=== PATIENT | male | born 1940 | race Caucasian/White ===

== ENCOUNTER 2017-09-24 23:07 | Inpatient (IN) | payer MEDICARE, OTHER ==
[2017-09-24 23:25] VITALS: BMI 23.3
--- NOTE | 2017-09-25 00:07 | ED PDOC ---
Arrival/HPI - General Historian: Patient - History of Present Illness Time/Duration: > week Symptom Course: Intermittent Activities at Onset: Light Context: Home <Niki Chaumaria esther - Last Filed: 09/25/17 01:27> <Mynor Rivers DO - Last Filed: 09/25/17 06:21> - General Chief Complaint: Cough, Cold, Congestion Time Seen by Provider: 09/24/17 23:40 - History of Present Illness Narrative History of Present Illness (Text): 09/25/17 00:04 This is a 76 year old male with no PMH presenting to the ER for two weeks of productive cough with white sputum and SOB. SOB is worse when laying down and better when sitting up. Lozenges have helped with the cough. He denies CP, fevers, headaches, abdominal pain, diarrhea, vomiting, melena, recent sickness and urinary complaints. He currently takes no medication. No PMD (Rickey Chau) Past Medical History - Provider Review Nursing Documentation Reviewed: Yes - Tetanus Immunization Tetanus Immunization: Unknown - Past Medical History Past Medical History: No Previous - Psychiatric Hx Depression: No Hx Emotional Abuse: No Hx Physical Abuse: No Hx Substance Use: No - Past Surgical History Past Surgical History: No Previous - Suicidal Assessment Feels Threatened In Home Enviroment: No <MirnalinetteNikialice - Last Filed: 09/25/17 01:27> Family/Social History - Physician Review Nursing Documentation Reviewed: Yes Family/Social History: Unknown Family HX Smoking Status: Former Smoker Hx Alcohol Use: No Hx Substance Use: No <Rickey Chau - Last Filed: 09/25/17 01:27> Allergies/Home Meds <Rickey Chau - Last Filed: 09/25/17 01:27> <Mynor Rivers DO - Last Filed: 09/25/17 06:21> Allergies/Adverse Reactions: Allergies No Known Allergies Allergy (Verified 08/03/13 05:23) Home Medications: Home Meds Medication Instructions Recorded Confirmed No Known Home Med [No Known Home 08/03/13 09/24/17 Med] Review of Systems - Physician Review All systems were reviewed & negative as marked: Yes - Review of Systems Constitutional: Normal. absent: Fevers Eyes: Normal ENT: Normal Respiratory: SOB, Cough, Sputum Cardiovascular: Normal. absent: Chest Pain Gastrointestinal: Normal. absent: Abdominal Pain, Constipation, Diarrhea, Nausea, Vomiting, Hematochezia, Hematemesis Genitourinary Male: Normal. absent: Dysuria Musculoskeletal: Normal Skin: Normal Neurological: Normal. absent: Headache Psychiatric: Normal <Rickey Chau - Last Filed: 09/25/17 01:27> Physical Exam Vital Signs Reviewed: Yes Temperature: Afebrile Blood Pressure: Normal Pulse: Regular Respiratory Rate: Normal Appearance: Positive for: Well-Appearing, Non-Toxic, Comfortable Pain Distress: None Mental Status: Positive for: Alert and Oriented X 3 - Systems Exam Head: Present: Atraumatic, Normocephalic Pupils: Present: PERRL Extroacular Muscles: Present: EOMI Conjunctiva: Present: Normal Mouth: Present: Moist Mucous Membranes Neck: Present: Normal Range of Motion Respiratory/Chest: Present: Clear to Auscultation, Good Air Exchange, Other ( rales present in the B/L lower bases). No: Respiratory Distress, Accessory Muscle Use Cardiovascular: Present: Regular Rate and Rhythm, Normal S1, S2. No: Murmurs Abdomen: Present: Normal Bowel Sounds. No: Tenderness, Distention, Peritoneal Signs Back: Present: Normal Inspection Upper Extremity: Present: Normal Inspection. No: Cyanosis, Edema Lower Extremity: Present: Normal Inspection. No: Edema Neurological: Present: Speech Normal, Motor Func Grossly Intact, Normal Sensory Function Skin: Present: Warm, Dry, Normal Color. No: Rashes Psychiatric: Present: Alert, Oriented x 3, Normal Insight, Normal Concentration <Rickey Chau - Last Filed: 09/25/17 01:27> Vital Signs Temp Pulse Resp BP Pulse Ox 09/25/17 03:12 102/60 09/25/17 02:20 71 20 117/69 100 09/24/17 23:23 98.0 F 81 20 132/64 97 Medical Decision Making <Rickey Chau - Last Filed: 09/25/17 01:27> <Mynor Rivers DO - Last Filed: 09/25/17 06:21> ED Course and Treatment: 09/25/17 00:08 Impression: This is a 76 year old male with no PMH presenting to the ER for two weeks of productive with white sputum and SOB. Differential not limited to: URI vs CHF vs GERD Plan: -blood work -EKG -Cxray -d-dimer -BNP -blood culture Progress: 09/25/17 00:20 Patient resting comfortably, no acute distress and vitals are stable EKG: rate of 80bpm, NSR 09/25/17 00:25 Chest xray - suspicious for right lower lobe pneumonia (Rickey Chau) Patient Seen With Resident: In agreement with resident note which contains more details about the patient. Patient was seen and evaluated with resident. Came up with plan and treatment together. Case discussed with Dr. Avel davis, who accepts patient to be admitted to medical surgery. (Mynor Rivers DO) - Lab Interpretations Lab Results: 09/24/17 23:55 09/24/17 23:55 Lab Results 09/24/17 23:55: D-Dimer, Quantitative 206 09/24/17 23:55: Sodium 137, Potassium 4.2, Chloride 100, Carbon Dioxide 29, Anion Gap 12, BUN 13, Creatinine 1.0, Est GFR ( Amer) > 60, Est GFR (Non- Af Amer) > 60, Random Glucose 109, Calcium 8.9, Magnesium 2.3 H, Total Bilirubin 0.4, AST 30, ALT 30, Alkaline Phosphatase 132 H, Lactate Dehydrogenase 574, Total Creatine Kinase 48, Troponin I < 0.01, NT-Pro-B Natriuret Pep 521 H, Total Protein 6.9, Albumin 3.3, Globulin 3.6, Albumin/ Globulin Ratio 0.9 L 09/24/17 23:55: WBC 9.6, RBC 4.62, Hgb 13.6 L, Hct 39.5 L, MCV 85.5, MCH 29.4, MCHC 34.4, RDW 13.2, Plt Count 289, MPV 10.1, Gran % 64.5, Lymph % (Auto) 23.2, [place] % (Auto) 10.0 H, Eos % (Auto) 2.0, Baso % (Auto) 0.3, Gran # 6.20, Lymph # (Auto) 2.2, [place] # (Auto) 1.0 H, Eos # (Auto) 0.2, Baso # (Auto) 0.03 09/24/17 00:50: Urine Color Yellow, Urine Appearance Clear, Urine pH 6.5, Ur Specific [place] 1.010, Urine Protein Negative, Urine Glucose (UA) Negative, Urine Ketones Negative, Urine Blood Trace-intact H, Urine Nitrate Negative, Urine Bilirubin Negative, Urine Urobilinogen 0.2, Ur Leukocyte Esterase Negative , Urine RBC 1 - 3, Urine WBC 0 - 2, Ur Epithelial Cells 0 - 2 - RAD Interpretation Radiology Orders: 09/24/17 23:41 CHEST PORTABLE [RAD] Stat - Medication Orders Current Medication Orders: Albuterol/Ipratropium (Duoneb 3 Mg/0.5 Mg (3 Ml) Ud) 3 ml IH Q4H PRN PRN Reason: Shortness of Breath Last Admin: 09/25/17 02:14 Dose: 3 ml Enoxaparin Sodium (Lovenox) 40 mg SC DAILY FERNANDO PRN Reason: Protocol Ceftriaxone Sodium (Rocephin 1 Gram Ivpb) 1 gm in 100 mls @ 100 mls/hr IVPB DAILY FERNANDO PRN Reason: Protocol Azithromycin (Zithromax 500mg In Ns) 500 mg in 250 mls @ 167 mls/hr IVPB DAILY FERNANDO PRN Reason: Protocol Pantoprazole Sodium (Protonix Ec Tab) 40 mg PO 0600 FERNANDO Last Admin: 09/25/17 05:53 Dose: Not Given Non-Admin Reason: Patient Refused Discontinued Medications Furosemide (Lasix) 40 mg IVP STAT STA Stop: 09/25/17 02:26 Last Admin: 09/25/17 03:12 Dose: 40 mg MAR Blood Pressure Document 09/25/17 03:12 CNR (Rec: 09/25/17 03:14 CNR [id number]) Blood Pressure Blood Pressure (100/60-150/90) 102/60 IVP Administration Document 09/25/17 03:12 CNR (Rec: 09/25/17 03:14 CNR [id number]) Charges for Administration # of IVP Administrations 1 Ceftriaxone Sodium (Rocephin 1 Gram Ivpb) 1 gm in 100 mls @ 100 mls/hr IVPB STAT STA PRN Reason: Protocol Stop: 09/25/17 02:07 Last Admin: 09/25/17 01:28 Dose: 100 mls/hr eMAR Start Stop Document 09/25/17 01:28 CNR (Rec: 09/25/17 01:29 CNR [id number]) Intravenous Solution Start Date 09/25/17 Start Time 01:28 End Date 09/25/17 End time 02:28 Total Infusion Time 60 Azithromycin (Zithromax 500mg In Ns) 500 mg in 250 mls @ 167 mls/hr IVPB STAT STA PRN Reason: Protocol Stop: 09/25/17 02:38 Last Admin: 09/25/17 03:12 Dose: 167 mls/hr eMAR Start Stop Document 09/25/17 03:12 CNR (Rec: 09/25/17 03:12 CNR [id number]) Intravenous Solution Start Date 09/25/17 Start Time 03:12 - PA / [employer] HELPER / Resident Statement MARIPOSA has reviewed & agrees with the documentation as recorded. MARIPOSA has examined the patient and agrees with the treatment plan. <Rickey Chau - Last Filed: 09/25/17 01:27> Disposition/Present on Arrival - Present on Arrival History of DVT/PE: No History of Uncontrolled Diabetes: No Urinary Catheter: No History of Decub. Ulcer: No History Surgical Site Infection Following: None <Rickey Chau - Last Filed: 09/25/17 01:27> - Present on Arrival Any Indicators Present on Arrival: No - Disposition Have Diagnosis and Disposition been Completed?: Yes Disposition Time: 00:50 <Mynor Rivers DO - Last Filed: 09/25/17 06:21> - Disposition Diagnosis: Pneumonia Disposition: HOSPITALIZED Condition: STABLE
[2017-09-25 00:18] LABS: BASO # 0.03 K/mm3 (0.0-2.0); BASO % 0.3 % (0.0-3.0); EOS # 0.2 (0.0-0.7); GRAN # 6.2 (1.4-6.5); GRAN % 64.5 % (50.0-68.0); HEMOGLOBIN 13.6 g/dL (14.0-18.0); LYMPH # 2.2 (1.2-3.4); LYMPH % 23.2 % (22.0-35.0); MEAN CELL VOLUME 85.5 fl (80.0-105.0); MEAN CORPUSCULAR HEMOGLOBIN 29.4 pg (25.0-35.0); MEAN CORPUSCULAR HGB CONC 34.4 g/dl (31.0-37.0); MEAN PLATELET VOLUME 10.1 fl (7.0-11.0); RBC 4.62 10^6/uL (3.5-6.1); RED CELL DISTRIBUTION WIDTH 13.2 % (11.5-14.5); WHITE BLOOD COUNT 9.6 10^3/ul (4.5-11.0)
[2017-09-25 00:30] LABS: ALB/GLOB RATIO 0.9 (1.1-1.8); ALBUMIN 3.3 g/dL (3.0-4.8); ALT/SGPT 30 U/L (7-56); AST/SGOT 30 U/L (17-59); BLOOD UREA NITROGEN 13 mg/dL (7-21); CALCIUM 8.9 mg/dL (8.4-10.5); GFR AFRICAN-AMERICAN > 60; GFR NON-AFRICAN AMERICAN > 60
[2017-09-25 00:40] LABS: B-TYPE NATRIURETIC PEPTIDE 521 pg/mL (0-450); TROPONIN I < 0.01 ng/mL
[2017-09-25 01:00] LABS: PH,URINE 6.5 (4.7-8.0); URINE BILIRUBIN NEGATIVE (NEGATIVE); URINE BLOOD TRACE-INTACT (NEGATIVE); URINE GLUCOSE (UA) NEGATIVE (NEGATIVE); URINE LEUKOCYTE ESTERASE NEGATIVE Leu/uL (NEGATIVE); URINE PROTEIN NEGATIVE mg/dL (<30 mg/dL); URINE UROBILINOGEN 0.2 E.U./dL (<1 E.U./dL)
[2017-09-25 01:02] LABS: URINE APPEARANCE CLEAR (CLEAR); URINE COLOR YELLOW (YELLOW)
[2017-09-25] MEDS ORDERED: cefTRIAXone 1 gm 1 GM/100 ML BAG IVPB STA (01:08)
[2017-09-25] MEDS ORDERED: Azithromycin 500MG/NS 250ml 500 MG/250 ML BAG IVPB STA (01:09)
[2017-09-25 01:14] LABS: URINE EPITHELIAL CELLS 0 - 2 /hpf (0-5); URINE WBC 0 - 2 /hpf (0-6)
[2017-09-25] MEDS ORDERED: Albuterol-Ipratrop 3 mg / 0.5 (3 ml) UD ONE (02:13)
[2017-09-25] MEDS: Albuterol-Ipratrop 3 mg / 0.5 (3 ml) UD IH PRN (02:14)
[2017-09-25 03:00] LABS: ARTERIAL BLOOD GAS HCO3 23.2 mmol/L (21-28); ARTERIAL BLOOD GAS HEMOGLOBIN 14.2 g/dL (11.7-17.4); ARTERIAL BLOOD GAS O2 CAPACITY 19.3 mL/dl (16-24); ARTERIAL BLOOD GAS O2 CONTENT 18.3 ML/dl (15-23); ARTERIAL BLOOD GAS O2 SAT 94.9 % (95-98); ARTERIAL BLOOD GAS PCO2 35 mm/Hg (35-45); ARTERIAL BLOOD GAS PH 7.43 (7.35-7.45); ARTERIAL BLOOD GAS TCO2 24.3 mmol.L (22-28)
--- NOTE | 2017-09-25 04:33 | CP.PCM.HP ---
<JuniorScottie Lagos - Last Filed: 09/25/17 06:24> History of Present Illness - History of Present Illness History of Present Illness: Scottie Pacheco PGY-1, Internal Medicine Resident, History and Physical for Avel Velarde CC: "I have been coughing for 3 weeks" HPI: Pt is a 76 yo male with a past medical history of only GI ulcer in 2014 who presents to the ED for 3 weeks of productive cough with white/yellow sputum and SOB. He denies blood in his sputum. He states that he traveled to [place] for his son's wedding and [place] a [place] ago. He reports a recent 19lb wt loss, due to "food does not taste the same". Pt quit smoking about 5 years ago. Pt reports he has been using Tim's Vapor rub, but it has not helped very much. He states that he is SOB which is worse when he lays down and better when he sits up. He denies CP, fevers, headaches, abdominal pain, diarrhea, vomiting, melena, recent sickness and urinary complaints. He currently takes no medication. 12 point ROS obtained, pertinent positives and negatives added to HPI. PMH: GI ulcer 2014 PSH: denies FH: Mother: unsure of medical history. Father: smoker, from "heart attack" Social: Tobacco quit 5 years smoked 3 cigs/day for 5 years, alcohol- 1 beer/ week. Denies drugs. Home meds: none Allergies: NKDA Labs: CBC: WBC 9.6, Hgb: 13.6 CMP: BNP 521 UA: trace blood Imaging: CXR: consolidations suggestive of PNA Present on Admission - Present on Admission Any Indicators Present on Admission: No Review of Systems - Review of Systems Review of Systems: 12 point ROS obtained and added to HPI Past Patient History - Tetanus Immunizations Tetanus Immunization: Unknown - Past Social History Smoking Status: Former Smoker - PSYCHIATRIC Hx Depression: No Hx Emotional Abuse: No Hx Physical Abuse: No Hx Substance Use: No Meds Allergies/Adverse Reactions: Allergies Allergy/AdvReac Type Severity Reaction Status Date / Time No Known Allergies Allergy Verified 08/03/13 05:23 Physical Exam - Constitutional Appears: No Acute Distress - Head Exam Head Exam: ATRAUMATIC, NORMOCEPHALIC - Eye Exam Eye Exam: EOMI, PERRL - ENT Exam ENT Exam: Mucous Membranes Moist, Normal Exam - Neck Exam Neck exam: Positive for: Normal Inspection. Negative for: Tenderness - Respiratory Exam Respiratory Exam: Decreased Breath Sounds, Wheezes, NORMAL BREATHING PATTERN. absent: Chest Wall Tenderness, Stridor - Cardiovascular Exam Cardiovascular Exam: REGULAR RHYTHM, RRR, +S1, +S2. absent: Diastolic murmur, JVD, Systolic Murmur - GI/Abdominal Exam GI & Abdominal Exam: Normal Bowel Sounds, Soft. absent: Distended, Tenderness - Extremities Exam Extremities exam: Positive for: full ROM. Negative for: calf tenderness, joint swelling, pedal edema - Neurological Exam Neurological exam: Alert, CN II-XII Intact, Oriented x3 - Psychiatric Exam Psychiatric exam: Normal Affect, Normal Mood - Skin Skin Exam: Normal Color Results - Vital Signs Recent Vital Signs: Last Vital Signs Temp 98.9 F 09/24/17 23:23 Pulse 71 09/25/17 02:20 Resp 20 09/25/17 02:20 BP 102/60 09/25/17 03:12 Pulse Ox 100 09/25/17 02:20 - Labs Result Diagrams: 09/24/17 23:55 09/24/17 23:55 Labs: Laboratory Results - last 24 hr 09/25/17 02:48 pCO2 35 pO2 62.0 L HCO3 23.2 ABG pH 7.43 ABG Total CO2 24.3 ABG O2 Saturation 94.9 L ABG O2 Content 18.3 ABG Base Excess -0.6 ABG Hemoglobin 14.2 ABG Carboxyhemoglobin 1.9 H POC ABG HHb (Measured) 4.9 ABG Methemoglobin 1.3 ABG O2 Capacity 19.3 Hgb O2 Saturation 91.9 L FiO2 21.0 Assessment & Plan - Assessment and Plan (Free Text) Assessment: Pt is a 76 yo male with a past medical history of only GI ulcer in 2015 who presents to the ED for 3 weeks of productive cough with white/yellow sputum and SOB. Plan: Community Acquired Pneumonia -ordered Mycoplasma IgM, IgG -Ordered Legionella Urine antigen -Ordered Quantiferon -Ordered blood cultures -ordered sputum cultures -consulted IDDr Coker, appreciate recommendations -consulted Pulm, Dr Andrews, appreciate recommendations -ordered Procal -Duoneb q4h, PRN -Start Lasix 40mg IVP -Ceftriaxone 1g, IVPB Daily -Azithromycin 500mg, IVPB Daily -CXR: official read pending -keep NPO -UA: trace blood -Troponin NEGATIVE x1, continue to trend Elevated BNP -BNP 521 -F/u on ECHO, consult cardio if abnormal -ordered HA1C -Ordered Lipid panel -ordered TSH -Ordered Troponin GI ppx -start protonix 40mg PO daily DVT ppx -SCDs -lovenox 40mg SC daily Pt seen, examined, assessment and plan discussed extensively with Dr Velarde. Scottie Pacheco PGY-1 <Dilma Velarde - Last Filed: 09/29/17 06:06> Results - Vital Signs Recent Vital Signs: Last Vital Signs Temp 98.6 F 09/29/17 00:01 Pulse 89 09/29/17 02:00 Resp 16 09/29/17 00:01 BP 126/66 09/29/17 00:01 Pulse Ox 98 09/29/17 00:01 - Labs Result Diagrams: 09/27/17 06:00 09/27/17 06:00 Labs: Laboratory Results - last 24 hr 09/28/17 09/28/17 09/28/17 07:15 16:55 23:20 APTT 55.1 H 58.8 H Troponin I < 0.01
[2017-09-25] MEDS: Pantoprazole 40 mg EC Tab PO SCH (05:53)
[2017-09-25] MEDS ORDERED: Magnesium Sulfate 1 gm in D5W 1 GM/100 ML BAG IVPB ONE (06:49)
[2017-09-25 06:50] LABS: HEMOGLOBIN 14.3 g/dL (14.0-18.0); MEAN CORPUSCULAR HEMOGLOBIN 29.4 pg (25.0-35.0); MEAN CORPUSCULAR HGB CONC 34.2 g/dl (31.0-37.0); MEAN PLATELET VOLUME 9.7 fl (7.0-11.0); RBC 4.86 10^6/uL (3.5-6.1); RED CELL DISTRIBUTION WIDTH 13.3 % (11.5-14.5); WHITE BLOOD COUNT 8.9 10^3/ul (4.5-11.0)
[2017-09-25 07:03] LABS: ALBUMIN 3.6 g/dL (3.0-4.8); ALT/SGPT 36 U/L (7-56); AST/SGOT 29 U/L (17-59); BLOOD UREA NITROGEN 13 mg/dL (7-21); GFR AFRICAN-AMERICAN > 60; GFR NON-AFRICAN AMERICAN > 60; HDL CHOLESTEROL 40 mg/dL (29-60)
[2017-09-25 07:13] LABS: TROPONIN I < 0.01 ng/mL
[2017-09-25 07:14] LABS: LDL CHOLESTEROL 58 mg/dL (0-129)
[2017-09-25] MEDS ORDERED: Iohexol 350 MG/100 ML VIAL ONE (08:04)
--- NOTE | 2017-09-25 09:13 | CT ---
Date of service: 09/25/2017 PROCEDURE: CT Chest with and without contrast HISTORY: Cough, suspect PNA, hx smoking recent [place] visit COMPARISON: None. TECHNIQUE: Contiguous axial images were obtained through the chest with intravenous contrast enhancement. Sagittal and coronal reconstructions were performed. IV contrast: 100 cc of Omni 350 Radiation dose (DLP): 636 mGy-cm. This CT exam was performed using one or more of the following dose reduction techniques: Automated exposure control, adjustment of the mA and/or kV according to patient size, and/or use of iterative reconstruction technique. FINDINGS: LUNGS: There is dense consolidation of the right lower lobe consistent with pneumonia. MEDIASTINUM: Unremarkable thoracic aorta. No aneurysm or dissection. Normal sized heart. Main pulmonary artery unremarkable. No vascular congestion. There is extensive mediastinal adenopathy. Subcarinal adenopathy measures 3.7 cm in diameter. There is a pretracheal node measuring 3.8 cm. There are multiple anterior mediastinal nodes and right hilar nodes. There is a 4.5 cm mass or adenopathy inferior to the right hilum. This degree of adenopathy raises the suspicion of underlying pulmonary malignancy. PLEURA: Small right pleural effusion BONES: There is a lytic lesion in the posterior aspect of the T7 vertebral body. Sclerotic lesions are seen a multiple levels. Findings are suspicious for metastatic disease UPPER ABDOMEN: Grossly unremarkable. OTHER FINDINGS: None. IMPRESSION: Extensive mediastinal and hilar adenopathy suspicious for underlying pulmonary malignancy. Lytic lesion at T7 consistent with metastatic disease. Scattered sclerotic lesions. Extensive right lower lobe pneumonia
[2017-09-25] MEDS: Azithromycin 500MG/NS 250ml 500 MG/250 ML BAG IVPB SCH (10:22)
[2017-09-25] MEDS: Enoxaparin 40 mg Syringe SC SCH (10:22)
[2017-09-25] MEDS: cefTRIAXone 1 gm 1 GM/100 ML BAG IVPB SCH (10:23)
--- NOTE | 2017-09-25 11:13 | RAD ---
Date of service: 09/25/2017 HISTORY: r/o infiltrate COMPARISON: No prior. FINDINGS: LUNGS: There is an extensive alveolar infiltrate in the right lower lobe consistent with pneumonia PLEURA: No significant pleural effusion identified, no pneumothorax apparent. CARDIOVASCULAR: Normal. OSSEOUS STRUCTURES: No significant abnormalities. VISUALIZED UPPER ABDOMEN: Normal. OTHER FINDINGS: None. IMPRESSION: There is an extensive alveolar infiltrate in the right lower lobe consistent with pneumonia
--- NOTE | 2017-09-25 16:26 | CARD ---
APPROVED REPORT Date of service: 09/24/2017 EKG Measurement Heart [id number] IL [id number] <Conclusion> Normal sinus rhythm Possible Left atrial enlargement Borderline ECG
--- NOTE | 2017-09-25 17:59 | CT ---
Date of service: 09/25/2017 PROCEDURE: CT Abdomen and Pelvis without intravenous contrast HISTORY: Lesions suspicious for cancer on CT chest, staging COMPARISON: None. TECHNIQUE: Contiguous images were obtained from the domes of the diaphragms to the upper thighs without the administration of intravenous contrast. Oral contrast was not administered. Radiation dose: Total exam DLP = 342.3 mGy-cm. This CT exam was performed using one or more of the following dose reduction techniques: Automated exposure control, adjustment of the mA and/or kV according to patient size, and/or use of iterative reconstruction technique. FINDINGS: LOWER THORAX: Extensive right lower lobe consolidation. LIVER: 2.1 cm low-density lesion in the anterolateral liver (series 3, image 29). No gross lesion or ductal dilatation. GALLBLADDER AND BILE DUCTS: Unremarkable. PANCREAS: Unremarkable. No gross lesion or ductal dilatation. SPLEEN: Unremarkable. ADRENALS: Unremarkable. No mass. KIDNEYS AND URETERS: 2.9 x 2.7 cm right interpolar cyst. 3.9 x 3.8 cm left lower pole cyst. . No hydronephrosis. No solid mass. VASCULATURE: Unremarkable. No aortic aneurysm. BOWEL: Colonic diverticulosis. Prominent amount of retained colonic stool. No obstruction. No gross mural thickening. APPENDIX: No findings to suggest acute appendicitis. PERITONEUM: Left fat and nonobstructive bowel containing inguinal hernia. No free fluid. No free air. LYMPH NODES: Unremarkable. No enlarged lymph nodes. BLADDER: Unremarkable. REPRODUCTIVE: Prostatomegaly. BONES: Scattered osseous sclerotic lesions including in multiple vertebral bodies, posterior elements and ribs. Age-indeterminate fracture of L4 superior endplate which may be acute and/or pathologic. OTHER FINDINGS: None. 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 Age-indeterminate fracture of the L4 superior endplate which may be acute and/or pathologic. Contrast-enhanced MRI of the lumbar spine can be obtained for further evaluation and characterization as clinically warranted. Low density lesion in the anterolateral liver for which metastasis is suspected. Nonobstructive bowel containing left inguinal hernia. Additional findings as above.
--- NOTE | 2017-09-25 19:05 | CP.PCM.CON ---
History of Present Illness - History of Present Illness History of Present Illness: Infectious Disease Consultation: September 25, 2017 76 yo male with presentation of SOB and cough productive of sputum. The patient has had symptoms for the past 3 weeks. He was recently in [place] for his son's wedding. Patient states that "food does not taste the same". He has lost [address] scan showing extensive right lower lobe pneumonia but what is more concerning is the extensive mediastinal and hilar adenopathy with lytic lesion at T7. The patient has been started on IV Rocephin and Azithromycin for antibiotic care. No WBC. Procalcitonin of 8.8 at this time. PMHx: GI Ulcer 2014 PSHx: none Allergies: NKDA Social Hx: No illicit drug use Tobacco - stopped 5 years ago EtOH - Social about 1 beer/week Active Medications Albuterol/Ipratropium (Duoneb 3 Mg/0.5 Mg (3 Ml) Ud) 3 ml IH Q4H PRN PRN Reason: Shortness of Breath Last Admin: 09/25/17 02:14 Dose: 3 ml Enoxaparin Sodium (Lovenox) 40 mg SC DAILY FERNANDO PRN Reason: Protocol Last Admin: 09/25/17 10:22 Dose: 40 mg Ceftriaxone Sodium (Rocephin 1 Gram Ivpb) 1 gm in 100 mls @ 100 mls/hr IVPB DAILY FERNANDO PRN Reason: Protocol Last Admin: 09/25/17 10:23 Dose: 100 mls/hr Azithromycin (Zithromax 500mg In Ns) 500 mg in 250 mls @ 167 mls/hr IVPB DAILY FERNANDO PRN Reason: Protocol Last Admin: 09/25/17 10:22 Dose: 167 mls/hr Pantoprazole Sodium (Protonix Ec Tab) 40 mg PO 0600 [facility] Last Admin: 09/25/17 05:53 Dose: Not Given Family Hx: none given ROS: No fevers, chills, nausea, vomiting, diarrhea, headaches, dizziness, chest pain , abdominal pain, melena, hematuria, hematemesis, hematochezia, depression, anxiety Past Patient History - Tetanus Immunizations Tetanus Immunization: Unknown - Past Social History Smoking Status: Former Smoker - CARDIAC Hx Cardiac Disorders: No - PULMONARY Hx Respiratory Disorders: No - NEUROLOGICAL Hx Neurological Disorder: No - HEENT Hx HEENT Problems: No - RENAL Hx Chronic Kidney Disease: No - ENDOCRINE/METABOLIC Hx Endocrine Disorders: No - HEMATOLOGICAL/ONCOLOGICAL Hx Blood Disorders: No - INTEGUMENTARY Hx Dermatological Problems: No - MUSCULOSKELETAL/RHEUMATOLOGICAL Hx Musculoskeletal Disorders: No Hx Falls: No - GASTROINTESTINAL Hx Gastrointestinal Disorders: No - GENITOURINARY/GYNECOLOGICAL Hx Genitourinary Disorders: No - PSYCHIATRIC Hx Depression: No Hx Emotional Abuse: No Hx Physical Abuse: No Hx Substance Use: No - SURGICAL HISTORY Hx Surgeries: No Hx Amputation: No Other/Comment: colonoscopy [address] johnson, no findings. Meds Allergies/Adverse Reactions: Allergies Allergy/AdvReac Type Severity Reaction Status Date / Time No Known Allergies Allergy Verified 08/03/13 05:23 - Medications Medications: Current Medications Albuterol/Ipratropium (Duoneb 3 Mg/0.5 Mg (3 Ml) Ud) 3 ml IH Q4H PRN PRN Reason: Shortness of Breath Last Admin: 09/25/17 02:14 Dose: 3 ml Enoxaparin Sodium (Lovenox) 40 mg SC DAILY FERNANDO PRN Reason: Protocol Last Admin: 09/25/17 10:22 Dose: 40 mg Ceftriaxone Sodium (Rocephin 1 Gram Ivpb) 1 gm in 100 mls @ 100 mls/hr IVPB DAILY FERNANDO PRN Reason: Protocol Last Admin: 09/25/17 10:23 Dose: 100 mls/hr Azithromycin (Zithromax 500mg In Ns) 500 mg in 250 mls @ 167 mls/hr IVPB DAILY FERNANDO PRN Reason: Protocol Last Admin: 09/25/17 10:22 Dose: 167 mls/hr Pantoprazole Sodium (Protonix Ec Tab) 40 mg PO 0600 [facility] Last Admin: 09/25/17 05:53 Dose: Not Given Physical Exam - Constitutional Appears: No Acute Distress, Chronically Ill - Head Exam Head Exam: ATRAUMATIC, NORMOCEPHALIC - Eye Exam Eye Exam: EOMI, PERRL Pupil Exam: NORMAL ACCOMODATION, PERRL - ENT Exam ENT Exam: Mucous Membranes Moist, Normal External Ear Exam, TM's Normal Bilaterally - Neck Exam Neck exam: Positive for: Full Rom, Tenderness - Respiratory Exam Respiratory Exam: Decreased Breath Sounds, Wheezes. absent: Rales, Rhonchi - Cardiovascular Exam Cardiovascular Exam: REGULAR RHYTHM, RRR, +S1, +S2 - GI/Abdominal Exam GI & Abdominal Exam: Normal Bowel Sounds, Soft. absent: Distended, Tenderness - Extremities Exam Extremities exam: Positive for: full ROM, normal inspection - Neurological Exam Neurological exam: Alert, CN II-XII Intact, Oriented x3 - Psychiatric Exam Psychiatric exam: Normal Affect, Normal Mood - Skin Skin Exam: Intact, Normal Color Results - Vital Signs Recent Vital Signs: Last Vital Signs Temp 98.3 F 09/25/17 14:00 Pulse 66 09/25/17 14:00 Resp 18 09/25/17 14:00 BP 102/60 09/25/17 14:00 Pulse Ox 98 09/25/17 14:00 - Labs Result Diagrams: 09/25/17 06:20 09/25/17 06:20 Labs: Laboratory Results - last 24 hr 09/25/17 09/25/17 09/25/17 02:48 03:30 06:20 WBC 8.9 RBC 4.86 Hgb 14.3 Hct 41.8 L MCV 86.0 MCH 29.4 MCHC 34.2 RDW 13.3 Plt Count 283 MPV 9.7 pCO2 35 pO2 62.0 L HCO3 23.2 ABG pH 7.43 ABG Total CO2 24.3 ABG O2 Saturation 94.9 L ABG O2 Content 18.3 ABG Base Excess -0.6 ABG Hemoglobin 14.2 ABG Carboxyhemoglobin 1.9 H POC ABG HHb (Measured) 4.9 ABG Methemoglobin 1.3 ABG O2 Capacity 19.3 Hgb O2 Saturation 91.9 L FiO2 21.0 Sodium Potassium Chloride Carbon Dioxide Anion Gap BUN Creatinine Est GFR ( Amer) Est GFR (Non-Af Amer) Random Glucose Hemoglobin A1c Calcium Phosphorus Magnesium Total Bilirubin AST ALT Alkaline Phosphatase Troponin I Total Protein Albumin Globulin Albumin/Globulin Ratio Triglycerides Cholesterol LDL Cholesterol Direct HDL Cholesterol Free T4 TSH 3rd Generation Ur L.pneumophila Ag Negative 09/25/17 09/25/17 09/25/17 06:20 06:20 06:20 WBC RBC Hgb Hct MCV MCH MCHC RDW Plt Count MPV pCO2 pO2 HCO3 ABG pH ABG Total CO2 ABG O2 Saturation ABG O2 Content ABG Base Excess ABG Hemoglobin ABG Carboxyhemoglobin POC ABG HHb (Measured) ABG Methemoglobin ABG O2 Capacity Hgb O2 Saturation FiO2 Sodium 138 Potassium 3.8 Chloride 100 Carbon Dioxide 29 Anion Gap 13 BUN 13 Creatinine 1.0 Est GFR ( Amer) > 60 Est GFR (Non-Af Amer) > 60 Random Glucose 134 H Hemoglobin A1c 6.5 Calcium 9.0 Phosphorus 3.5 Magnesium 2.2 Total Bilirubin 0.6 AST 29 ALT 36 Alkaline Phosphatase 135 H Troponin I < 0.01 Total Protein 7.3 Albumin 3.6 Globulin 3.7 Albumin/Globulin Ratio 1.0 L Triglycerides 69 Cholesterol 116 L LDL Cholesterol Direct 58 HDL Cholesterol 40 Free T4 TSH 3rd Generation 1.44 Ur L.pneumophila Ag 09/25/17 07:35 WBC RBC Hgb Hct MCV MCH MCHC RDW Plt Count MPV pCO2 pO2 HCO3 ABG pH ABG Total CO2 ABG O2 Saturation ABG O2 Content ABG Base Excess ABG Hemoglobin ABG Carboxyhemoglobin POC ABG HHb (Measured) ABG Methemoglobin ABG O2 Capacity Hgb O2 Saturation FiO2 Sodium Potassium Chloride Carbon Dioxide Anion Gap BUN Creatinine Est GFR ( Amer) Est GFR (Non-Af Amer) Random Glucose Hemoglobin A1c Calcium Phosphorus Magnesium Total Bilirubin AST ALT Alkaline Phosphatase Troponin I Total Protein Albumin Globulin Albumin/Globulin Ratio Triglycerides Cholesterol LDL Cholesterol Direct HDL Cholesterol Free T4 1.53 TSH 3rd Generation Ur L.pneumophila Ag Assessment & Plan - Assessment and Plan (Free Text) Assessment: 76 yo [place] male with large amount of weight loss (19 lbs) and multiple CT lung findings. The patient started on Ceftriaxone and Azithromycin. Must rule out malignancy. Check for Tuberculosis. Check PPD and Quantiferon. Consider surgery or IR evaluation for biopsy of suspicious areas. Supportive care. May need Heme/Onc evaluation as well. Check ESR and C-Reactive Protein. The most likely diagnosis given the current symptoms is malignancy. Thank you for allowing me to participate in the care of the patient, we will follow with you.
[2017-09-25] MEDS: guaiFENesin 100 mg/5 ml Syrup UD PO STA ×2 (20:17→20:51)
[2017-09-26] MEDS: Albuterol-Ipratrop 3 mg / 0.5 (3 ml) UD IH PRN (00:50)
[2017-09-26 02:24] LABS: HEMOGLOBIN 14.3 g/dL (14.0-18.0); MEAN CELL VOLUME 86.5 fl (80.0-105.0); MEAN CORPUSCULAR HEMOGLOBIN 29.8 pg (25.0-35.0); MEAN CORPUSCULAR HGB CONC 34.5 g/dl (31.0-37.0); MEAN PLATELET VOLUME 9.5 fl (7.0-11.0); RBC 4.8 10^6/uL (3.5-6.1); RED CELL DISTRIBUTION WIDTH 13.2 % (11.5-14.5)
[2017-09-26 02:26] LABS: WHITE BLOOD COUNT 10.7 10^3/ul (4.5-11.0)
[2017-09-26 02:33] LABS: ARTERIAL BLOOD GAS HCO3 23.5 mmol/L (21-28); ARTERIAL BLOOD GAS HEMOGLOBIN 13.9 g/dL (11.7-17.4); ARTERIAL BLOOD GAS O2 CAPACITY 19.1 mL/dl (16-24); ARTERIAL BLOOD GAS O2 CONTENT 18.9 ML/dl (15-23); ARTERIAL BLOOD GAS O2 SAT 99.1 % (95-98); ARTERIAL BLOOD GAS PCO2 33 mm/Hg (35-45); ARTERIAL BLOOD GAS PH 7.46 (7.35-7.45); ARTERIAL BLOOD GAS TCO2 24.5 mmol.L (22-28)
[2017-09-26] MEDS ORDERED: Digoxin 500 mcg/2ml (0.5 mg/2ml) Inj IVP ONE (02:33)
[2017-09-26 02:34] LABS: ALBUMIN 3.7 g/dL (3.0-4.8); ALT/SGPT 33 U/L (7-56); AST/SGOT 30 U/L (17-59); BLOOD UREA NITROGEN 12 mg/dL (7-21); CALCIUM 9.2 mg/dL (8.4-10.5); GFR AFRICAN-AMERICAN > 60; GFR NON-AFRICAN AMERICAN > 60
[2017-09-26 02:45] LABS: TROPONIN I < 0.01 ng/mL
--- NOTE | 2017-09-26 02:52 | CP.PCM.PN ---
<Scottie Pacheco - Last Filed: 09/26/17 03:28> Subjective - Date & Time of Evaluation Date of Evaluation: 09/26/17 Time of Evaluation: 01:40 - Subjective Subjective: Scottie Pacheco PGY-1, Internal Medicine Resident, Progress note for Dr Fink. Notified by pt nurse that pt's HR increased from 80's to 150's. Pt completely asymptomatic at that time, denies chest pain, states he is aware is heart is beating fast. Pt is on O2 3L and does not feel any worsening of his SOB. Pt had just finished a duoneb treatment. Pt was transferred to 2nd floor for tele. Pt given Cardizem 10mg bolus and BP dipped to 99/60. Decision made to give Digoxin instead of Cardizem drip. Pt is currently being treated of PNA. Chest CT performed yesterday which showed mediasteinal adenopathy and a lesion at T7 suspicious of metastatic disease. VS:118/65, HR 80 to 150, Irregular rhythm, RR20, 98.2F. Objective - Vital Signs/Intake and Output Vital Signs (last 24 hours): Temp Pulse Resp BP Pulse Ox 98 F 109 H 19 114/72 99 09/25/17 22:07 09/25/17 22:07 09/25/17 22:07 09/25/17 22:07 09/25/17 22:07 Intake and Output: 09/25/17 09/26/17 18:59 06:59 Intake Total 240 Balance 240 - Medications Medications: Current Medications Enoxaparin Sodium (Lovenox) 40 mg SC DAILY FERNANDO PRN Reason: Protocol Last Admin: 09/25/17 10:22 Dose: 40 mg Ceftriaxone Sodium (Rocephin 1 Gram Ivpb) 1 gm in 100 mls @ 100 mls/hr IVPB DAILY FERNANDO PRN Reason: Protocol Last Admin: 09/25/17 10:23 Dose: 100 mls/hr Azithromycin (Zithromax 500mg In Ns) 500 mg in 250 mls @ 167 mls/hr IVPB DAILY FERNANDO PRN Reason: Protocol Last Admin: 09/25/17 10:22 Dose: 167 mls/hr Levalbuterol HCl (Xopenex) 1.25 mg IH [id number] PRN PRN Reason: Shortness of Breath Pantoprazole Sodium (Protonix Ec Tab) 40 mg PO 0600 FERNANDO Last Admin: 09/25/17 05:53 Dose: Not Given - Labs Labs: 09/26/17 02:10 09/26/17 02:10 - Constitutional Appears: No Acute Distress - Head Exam Head Exam: ATRAUMATIC, NORMAL INSPECTION, NORMOCEPHALIC - Eye Exam Eye Exam: EOMI, PERRL - ENT Exam ENT Exam: Mucous Membranes Moist - Neck Exam Neck Exam: Normal Inspection - Respiratory Exam Respiratory Exam: Decreased Breath Sounds, NORMAL BREATHING PATTERN. absent: Accessory Muscle Use, Chest Wall Tenderness, Wheezes, Respiratory Distress, Stridor Additional comments: decreased breath sounds on left lower lung field. Crepitations half way up on the right side. - Cardiovascular Exam Cardiovascular Exam: Tachycardia, Irregular Rhythm, +S1, +S2 - GI/Abdominal Exam GI & Abdominal Exam: Soft, Normal Bowel Sounds. absent: Tenderness - Extremities Exam Extremities Exam: Full ROM, Normal Inspection. absent: Calf Tenderness, Pedal Edema - Back Exam Back Exam: absent: CVA tenderness (L), CVA tenderness (R) - Neurological Exam Neurological Exam: Alert, Awake, CN II-XII Intact, Oriented x3. absent: Altered - Psychiatric Exam Psychiatric exam: Normal Affect, Normal Mood. absent: Anxious, Depressed - Skin Skin Exam: Dry, Normal Color, Warm Assessment and Plan - Assessment and Plan (Free Text) Assessment: Assessment and plan: EKG done stat reveals A fib RVR(151), 1:51AM STAT troponin was ordered, will continue to trend Q6 x2. Pt transferred to second floor, [facility]. Duoneb has been discontinued at this time. Xopenex ordered instead. Ordered ABG stat, results are acceptable. CXR ordered stat, no significant changes when compared to earlier xray. CMP, BNP, Mg level ordered Cardio consult ordered, Dr Chirinos. Pt given Cardizem 10mg boulus IV for rate control after he was transferred to telemetry floor. His BP fell to 96/60, however the rate was still in the 150's. Pt given Digoxin 0.25 IV push x1 with a transient response, rate continues to be in the 140's to 150's. The BP is now noted to be 141/73, pt given Cardizem 5mg IVP, followed by drip at 5mg/hr. Since pt was feeling restless and complaining of the inability to relax, he was given Xanax 0.25mg PO. Since he continues to feel restless, we consulted ICU. Pt's called and notified of pt's transfer to TELE unit. Pt seen, examined, and assessment and plan extensively discussed with Dr Fink. Scottie Pacheco PGY-1 <Sammi Fink - Last Filed: 09/26/17 05:46> Objective - Vital Signs/Intake and Output Vital Signs (last 24 hours): Temp Pulse Resp BP Pulse Ox 98.2 F 157 H 20 141/73 99 09/26/17 01:25 09/26/17 03:42 09/26/17 01:25 09/26/17 03:42 09/26/17 01:25 Intake and Output: 09/25/17 09/26/17 18:59 06:59 Intake Total 240 Balance 240 - Medications Medications: Current Medications Enoxaparin Sodium (Lovenox) 40 mg SC DAILY FERNANDO PRN Reason: Protocol Last Admin: 09/25/17 10:22 Dose: 40 mg Ceftriaxone Sodium (Rocephin 1 Gram Ivpb) 1 gm in 100 mls @ 100 mls/hr IVPB DAILY FERNANDO PRN Reason: Protocol Last Admin: 09/25/17 10:23 Dose: 100 mls/hr Azithromycin (Zithromax 500mg In Ns) 500 mg in 250 mls @ 167 mls/hr IVPB DAILY FERNANDO PRN Reason: Protocol Last Admin: 09/25/17 10:22 Dose: 167 mls/hr diltiaZEM IVPB 100mg in NS (Cardizem 100mg In Ns) 100 mls @ 5 mls/hr IV .Q20H PRN; Protocol; 5 MG/HR PRN Reason: TITRATE PER MD ORDER Last Admin: 09/26/17 03:45 Dose: 5 mg/hr, 5 mls/hr Levalbuterol HCl (Xopenex) 1.25 mg IH [id number] PRN PRN Reason: Shortness of Breath Pantoprazole Sodium (Protonix Ec Tab) 40 mg PO 0600 [facility] Last Admin: 09/25/17 05:53 Dose: Not Given - Labs Labs: 09/26/17 02:10 09/26/17 02:10 Attending/Attestation - Attestation I have personally seen and examined this patient.: Yes I have fully participated in the care of the patient.: Yes I have reviewed all pertinent clinical information, including history, physical exam and plan: Yes Notes (Text): 09/26/17 05:42 Pt was evaluated with the resident by the bedside. He had a new onset Afib with RVR ,initially was asymptomatic,later on was restless. Agree with documentation and orders placed.
[2017-09-26 02:56] VITALS: PULSE 140
[2017-09-26] MEDS ORDERED: Digoxin 500 mcg/2ml (0.5 mg/2ml) Inj IVP STA (03:01)
[2017-09-26] MEDS ORDERED: diltiaZEM IVPB 100mg in NS 100 ML IV PRN (03:38)
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
[2017-09-26] MEDS: Pantoprazole 40 mg EC Tab PO SCH (07:45)
[2017-09-26] MEDS: guaiFENesin 100 mg/5 ml Syrup UD PO PRN ×3 (07:45→23:05)
[2017-09-26] MEDS: Enoxaparin 40 mg Syringe SC SCH (09:06)
[2017-09-26] MEDS: Azithromycin 500MG/NS 250ml 500 MG/250 ML BAG IVPB SCH (09:06)
--- NOTE | 2017-09-26 09:53 | RAD ---
Date of service: 09/26/2017 HISTORY: sob COMPARISON: 09/25/2017 FINDINGS: LUNGS: There is an alveolar infiltrate in the right lower lobe unchanged. PLEURA: No significant pleural effusion identified, no pneumothorax apparent. CARDIOVASCULAR: Normal. OSSEOUS STRUCTURES: No significant abnormalities. VISUALIZED UPPER ABDOMEN: Normal. OTHER FINDINGS: None. IMPRESSION: Right lower lobe pneumonia unchanged
[2017-09-26] MEDS: Heparin25000 units/250ml 1/2NS 25,000 UNITS/250 ML BAG IV PRN (10:35)
[2017-09-26] MEDS: cefTRIAXone 1 gm 1 GM/100 ML BAG IVPB SCH (10:52)
[2017-09-26] MEDS: POLYETHYLENE GLYCOL 3350 17 GM/Dose PACKET PO SCH ×2 (13:26→18:11)
--- NOTE | 2017-09-26 13:43 | CP.PCM.PN ---
<Devin Stevenson - Last Filed: 09/26/17 17:33> Subjective - Date & Time of Evaluation Date of Evaluation: 09/26/17 Time of Evaluation: 07:45 - Subjective Subjective: Devin Stevenson DO PGY-1, [facility] Progress Note Pt seen and examined at bedside. C/o cough this am, but reports that his congestion is breaking up in his chest. Rapid response was called on pt overnight for new-onset atrial fibrillation with rapid ventricular rate. Per report, pt at time was complaining of feeling "restless". Pt received cardizem x1 and digoxin x1 without clinical improvement, and thus was placed on cardizem drip. Pt was transferred to telemetry bed. Pt converted back to normal sinus rhythm at around 4:00 am this morning. Otherwise pt states that he feels tired today because he was up all night. Objective - Vital Signs/Intake and Output Vital Signs (last 24 hours): Temp Pulse Resp BP Pulse Ox 97.1 F L 62 18 99/49 L 98 09/26/17 12:20 09/26/17 12:20 09/26/17 12:20 09/26/17 12:20 09/26/17 06:00 - Medications Medications: Current Medications Guaifenesin (Robitussin) 100 mg PO Q6H PRN PRN Reason: Cough Last Admin: 09/26/17 07:45 Dose: 100 mg Ceftriaxone Sodium (Rocephin 1 Gram Ivpb) 1 gm in 100 mls @ 100 mls/hr IVPB DAILY FERNANDO PRN Reason: Protocol Last Admin: 09/26/17 10:52 Dose: 100 mls/hr Azithromycin (Zithromax 500mg In Ns) 500 mg in 250 mls @ 167 mls/hr IVPB DAILY FERNANDO PRN Reason: Protocol Last Admin: 09/26/17 09:06 Dose: 167 mls/hr Heparin Sodium/Sodium Chloride (Heparin 82436 Units/250ml 1/2 Normal Saline) 25 ,000 units in 250 mls @ 12.353 mls/hr IV .[id number] PRN; Protocol; 18 UNITS/KG/HR PRN Reason: ADJUST RATE PER PROTOCOL Last Admin: 09/26/17 10:35 Dose: 18 units/kg/hr, 12.353 mls/hr Levalbuterol HCl (Xopenex) 1.25 mg IH [id number] PRN PRN Reason: Shortness of Breath Metoprolol Tartrate (Lopressor) 25 mg PO BID [facility] Last Admin: 09/26/17 07:45 Dose: 25 mg Pantoprazole Sodium (Protonix Ec Tab) 40 mg PO 0600 [facility] Last Admin: 09/26/17 07:45 Dose: 40 mg Polyethylene Glycol (Miralax) 17 gm PO TID [facility] Last Admin: 09/26/17 13:26 Dose: 17 gm - Constitutional Appears: No Acute Distress, Chronically Ill - Head Exam Head Exam: ATRAUMATIC, NORMAL INSPECTION, NORMOCEPHALIC - Eye Exam Eye Exam: EOMI, Normal appearance, PERRL - ENT Exam ENT Exam: Mucous Membranes Moist, Normal Oropharynx - Neck Exam Neck Exam: Full ROM, Normal Inspection - Respiratory Exam Respiratory Exam: NORMAL BREATHING PATTERN Additional comments: Decreased breath sounds in all lung chacon, diffuse coarse breath sounds, crackles heard in R lower lobe - Cardiovascular Exam Cardiovascular Exam: REGULAR RHYTHM, +S1, +S2 - GI/Abdominal Exam GI & Abdominal Exam: Soft, Normal Bowel Sounds - Extremities Exam Extremities Exam: Full ROM, Normal Capillary Refill, Normal Inspection - Back Exam Back Exam: NORMAL INSPECTION Additional comments: No vertebral tenderness to palpation - Neurological Exam Neurological Exam: Alert, Awake, CN II-XII Intact, Oriented x3 - Psychiatric Exam Psychiatric exam: Normal Affect, Normal Mood - Skin Skin Exam: Dry, Intact, Normal Color, Warm Assessment and Plan - Assessment and Plan (Free Text) Assessment: 76 y o male, PMhx GI ulcer in 2014, presented with 3 wk hx of productive cough with whitish-yellow sputum and shortness of breath. Found to have R lower lobe consolidation, pt being treated for community-acquired pneumonia with IV antibiotics. Found on CT chest to have findings in lungs b/l and vertebral spine suspicious for malignancy. CT abd/pelvis revealed lesion in liver and fracture in lumbar spine possibly acute/pathologic. Further work-up pending. Pt also had rapid response on 09/26/17 for new-onset atrial fibrillation with rapid ventricular response. ID, Pulm, Heme/Onc, and Cardio consulted. Plan: Community-Acquired Pneumonia Pt afebrile since admission Ceftriaxone 1 g IVPB daily (day #2) Azithromycin 500 mg IVPB daily (day #2) Duonebs q4h PRN d/c'd due to new-onset atrial fibrillation with rapid ventricular response, occurred after pt received duoneb treatment Start Xopenex 1.25 mg q6h PRN Sputum cx 09/25: moderate polymorphonuclear WBCs, moderate gram pos cocci in clusters, few gram-variable rods, final results pending Blood cx 09/25: NGTD after 24 hrs U/a 09/25: trace blood Procalcitonin elevated 8.8 Legionella Ag neg CXR on admission 09/25: extensive alveolar infiltrate in R lower lobe consistent with pneumonia Repeat CXR 09/26: unchanged from prior study ID consulted (Dr. Coker), recs appreciated Pulm consulted, recs appreciated Suspicious malignancy Pt admitted to 20 lb weight loss in 1 month without trying, decreased appetite CT chest 09/25: extensive mediastinal and hilar lymphadenopathy suspicious for underlying pulmonary malignancy. Lytic lesion at T7 consistent with metastatic disease. Scattered sclerotic lesions. Extensive R lower lobe pneumonia. Ct abd/pelvis 09/25: scattered osteoblastic lesions in multiple vertebral bodies , posterior elements and ribs. Age-indetermine fracture of L4 superior end-plate , may be acute and/or pathologic. Low density lesion in anterolateral liver, metastasis suspected. Pending full-body bone scan, f/u results PSA wnl Pulm consulted, recs appreciated Heme/onc consulted, recs appreciated New-onset atrial fibrillation with rapid ventricular response Rapid response called on 09/26/17 for new-onset S/p cardizem 10 mg IVP x1, s/p digoxin x2, pt was placed on cardizem drip 100 mg at 5 mg/hr Pt converted to normal sinus rhythm at 4:00 this morning D/c'd cardizem; start metoprolol 25 mg PO bid D/c lovenox; start heparin drip Continue to monitor, pt asymptomatic and hemodynamically stable at this time Cardio consulted, recs appreciated DVT/GI ppx: Heparin drip/Protonix Pt seen, examined with, and plan discussed with Dr. Owens, attending Devin Stevenson DO PGY-1, [facility] [employer] Pager #[phone] <Lenka Owens - Last Filed: 09/29/17 16:06> Objective - Vital Signs/Intake and Output Vital Signs (last 24 hours): Temp Pulse Resp BP Pulse Ox 97.6 F 109 H 18 99/51 L 97 09/29/17 12:00 09/29/17 12:00 09/29/17 12:00 09/29/17 12:00 09/29/17 06:00 Intake and Output: 09/29/17 09/29/17 06:59 18:59 Intake Total 4602 250 Output Total 1000 Balance 3602 250 - Medications Medications: Current Medications Benzonatate (Tessalon Perles) 100 mg PO Q8 [facility] Last Admin: 09/29/17 11:19 Dose: 100 mg Guaifenesin (Robitussin) 100 mg PO Q6H PRN PRN Reason: Cough Last Admin: 09/29/17 06:01 Dose: 100 mg Vancomycin HCl (Vancomycin 1gm) 1 gm in 250 mls @ 167 mls/hr IVPB Q12H [facility] PRN Reason: Protocol Last Admin: 09/29/17 03:56 Dose: 167 mls/hr Heparin Sodium/Sodium Chloride (Heparin 98802 Units/250ml 1/2 Normal Saline) 25 ,000 units in 250 mls @ 10.005 mls/hr IV .Q24H PRN; Protocol; 14.23 UNITS/KG/HR PRN Reason: ADJUST RATE PER PROTOCOL Last Admin: 09/29/17 13:15 Dose: 14.23 units/kg/hr, 10.005 mls/hr Piperacillin Sod/Tazobactam Sod (Zosyn 3.375 In Ns 100ml) 100 mls @ 200 mls/hr IVPB Q6 [facility]ERNANDO PRN Reason: Protocol Stop: 09/29/17 18:29 Levalbuterol HCl (Xopenex) 0.63 mg IH Q2 PRN PRN Reason: Shortness of Breath Last Admin: 09/29/17 01:40 Dose: 0.63 mg Metoprolol Tartrate (Lopressor) 25 mg PO BID [facility] Last Admin: 09/29/17 11:20 Dose: 25 mg Pantoprazole Sodium (Protonix Ec Tab) 40 mg PO 0600 [facility] Last Admin: 09/29/17 06:01 Dose: 40 mg - Labs Labs: 09/29/17 07:30 09/29/17 06:30 PT 15.6 SECONDS (9.4-12.5) H 09/29/17 06:30 INR 1.35 (0.93-1.08) H 09/29/17 06:30 APTT 56.8 Seconds (25.1-36.5) H 09/29/17 06:30 Attending/Attestation - Attestation I have personally seen and examined this patient.: Yes I have fully participated in the care of the patient.: Yes I have reviewed all pertinent clinical information, including history, physical exam and plan: Yes Notes (Text): 09/29/17 16:04 76 yrs old male with PMHx, of chronic smoking 15pk years quit 5y ago, presented with poor appetite, cough, and SOB. Ct Chest done shows RLL PNA, likely post obstructive, diffuse moderate mediastinal MYA, and numerous extra- pulmonary lesions suggestive of metastatic process.CT abd/pelvis revealed lesion in liver and fracture in lumbar spine possible metastasis. . Pt also had rapid response on 09/26/17 for new-onset atrial fibrillation with rapid ventricular response. Post Obstructive Pneumonia. Patient is afebrile, on IV vancomycin and zosyn as per ID.Cultures are negative.ID is following. Metastatic Malignancy. Patient and family has refused biopsy of liver lesion, discuss with him in detail. AF, rate is controlled with Metoprolol, on anticoagulation with Heparin drip for now, can be changed to Apixiban if no plan for any biopsy . Management plan was discussed in detail with patient. Education was provided.
[2017-09-26] MEDS: Sodium Chloride 0.45% 1,000 ML IV SCH (15:21)
--- NOTE | 2017-09-26 15:37 | CP.PCM.CON ---
<Sriram Martinez - Last Filed: 09/26/17 16:31> History of Present Illness - History of Present Illness History of Present Illness: Sriram Crosseleni DO PGY-1, Pulmonology consult note for Dr. Min CC: cough, fatigue, weight loss History obtained from family (Son: Tony, Daughter: Opal, : Delphine) in the presence of the pt. This is a 76 year old male with no significant past medical history. As per family, Pt has had a cough productive of clear sputum for the past few months, associated with fatigue and decreased appetite for the past 2.5 months. Family also endorses an approximately 18 pound weight loss. Family denies fever, chills, headaches, bloody sputum, green sputum, yellow sputum, abdominal pain, leg swelling, bone pain. PMHx: Kidney stones PSH: Kidney stone removal FMHx: None SHx: Pt quit smoking in 2003 (approximately 12.5 pack year history). 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 Pt works in [employer]. Allx: NKDA A 12-point ROS was reviewed and is otherwise unremarkable. Review of Systems - Review of Systems All systems: reviewed and no additional remarkable complaints except (see HPI) Past Patient History - Tetanus Immunizations Tetanus Immunization: Unknown - Past Social History Smoking Status: Former Smoker - CARDIAC Hx Cardiac Disorders: No - PULMONARY Hx Respiratory Disorders: No - NEUROLOGICAL Hx Neurological Disorder: No - HEENT Hx HEENT Problems: No - RENAL Hx Chronic Kidney Disease: No - ENDOCRINE/METABOLIC Hx Endocrine Disorders: No - HEMATOLOGICAL/ONCOLOGICAL Hx Blood Disorders: No - INTEGUMENTARY Hx Dermatological Problems: No - MUSCULOSKELETAL/RHEUMATOLOGICAL Hx Musculoskeletal Disorders: No Hx Falls: No - GASTROINTESTINAL Hx Gastrointestinal Disorders: No - GENITOURINARY/GYNECOLOGICAL Hx Genitourinary Disorders: No - PSYCHIATRIC Hx Depression: No Hx Emotional Abuse: No Hx Physical Abuse: No Hx Substance Use: No - SURGICAL HISTORY Hx Surgeries: No Hx Amputation: No Other/Comment: colonoscopy [address] johnson, no findings. Meds Allergies/Adverse Reactions: Allergies Allergy/AdvReac Type Severity Reaction Status Date / Time No Known Allergies Allergy Verified 08/03/13 05:23 - Medications Medications: Current Medications Guaifenesin (Robitussin) 100 mg PO Q6H PRN PRN Reason: Cough Last Admin: 09/26/17 07:45 Dose: 100 mg Ceftriaxone Sodium (Rocephin 1 Gram Ivpb) 1 gm in 100 mls @ 100 mls/hr IVPB DAILY FERNANDO PRN Reason: Protocol Last Admin: 09/26/17 10:52 Dose: 100 mls/hr Azithromycin (Zithromax 500mg In Ns) 500 mg in 250 mls @ 167 mls/hr IVPB DAILY FERNANDO PRN Reason: Protocol Last Admin: 09/26/17 09:06 Dose: 167 mls/hr Heparin Sodium/Sodium Chloride (Heparin 10679 Units/250ml 1/2 Normal Saline) 25 ,000 units in 250 mls @ 12.353 mls/hr IV .[id number] PRN; Protocol; 18 UNITS/KG/HR PRN Reason: ADJUST RATE PER PROTOCOL Last Admin: 09/26/17 10:35 Dose: 18 units/kg/hr, 12.353 mls/hr Pamidronate Disodium 90 mg/ (Sodium Chloride) 510 mls @ 127.5 mls/hr IVPB ONCE ONE Stop: 09/26/17 18:06 Last Admin: 09/26/17 15:25 Dose: 127.5 mls/hr Sodium Chloride (Sodium Chloride 0.45%) 1,000 mls @ 80 mls/hr IV .[id number] [facility] Stop: 09/27/17 22:00 Last Admin: 09/26/17 15:21 Dose: 80 mls/hr Levalbuterol HCl (Xopenex) 1.25 mg IH [id number] PRN PRN Reason: Shortness of Breath Metoprolol Tartrate (Lopressor) 25 mg PO BID [facility] Last Admin: 09/26/17 07:45 Dose: 25 mg Pantoprazole Sodium (Protonix Ec Tab) 40 mg PO 0600 [facility] Last Admin: 09/26/17 07:45 Dose: 40 mg Polyethylene Glycol (Miralax) 17 gm PO TID [facility] Last Admin: 09/26/17 13:26 Dose: 17 gm Physical Exam - Constitutional Appears: Non-toxic, No Acute Distress, Cachectic, Chronically Ill - Head Exam Head Exam: ATRAUMATIC, NORMAL INSPECTION, NORMOCEPHALIC - Eye Exam Eye Exam: EOMI, Normal appearance - ENT Exam ENT Exam: Mucous Membranes Moist - Neck Exam Neck exam: Positive for: Full Rom, Normal Inspection - Respiratory Exam Respiratory Exam: Rales (RLL), Rhonchi (diffuse). absent: Accessory Muscle Use , Respiratory Distress - Cardiovascular Exam Cardiovascular Exam: REGULAR RHYTHM, +S1, +S2 - GI/Abdominal Exam GI & Abdominal Exam: Normal Bowel Sounds, Soft. absent: Distended, Tenderness - Extremities Exam Extremities exam: Positive for: full ROM, normal inspection - Back Exam Back exam: NORMAL INSPECTION - Neurological Exam Neurological exam: Alert, Oriented x3 - Psychiatric Exam Psychiatric exam: Normal Affect, Normal Mood - Skin Skin Exam: Normal Color Results - Vital Signs Recent Vital Signs: Last Vital Signs Temp 97.1 F L 09/26/17 12:20 Pulse 62 09/26/17 12:20 Resp 18 09/26/17 12:20 BP 99/49 L 09/26/17 12:20 Pulse Ox 98 09/26/17 06:00 - Labs Result Diagrams: 09/26/17 02:10 09/26/17 02:10 Labs: Laboratory Results - last 24 hr 09/26/17 09/26/17 11:30 11:30 Troponin I < 0.01 Prostate Specific Ag 0.5 Assessment & Plan - Assessment and Plan (Free Text) Assessment: This is a 76 year old male with no significant PMHx who presented to the ED with complaints of a cough, fatigue, decreased appetite, and an unintentional 18 pound weight loss over the past 2.5 months. Pt had a CXR done which showed extensive alveolar infiltrate in the RLL consistent with pneumonia. A chest CT with and without contrast which showed Extensive mediastinal and hilar adenopathy suspicious for underlying pulmonary malignancy. An abdominal/pelvic CT without PO or IV contrast showed scattered osteoblastic lesions seen in multiple vertebral bodies, posterior elements and ribs. Low density lesion in the anterolateral liver for which metastasis is suspected. Plan: 1. Metastatic disease of unknown primary malignancy - Chest CT with and without contrast which showed Extensive mediastinal and hilar adenopathy suspicious for underlying pulmonary malignancy. - An abdominal/pelvic CT without PO or IV contrast showed scattered osteoblastic lesions seen in multuple vertebral bodies, posterior elements and ribs. Low density lesion in the anterolateral liver for which metastasis is suspected. - f/u bone scan - f/u sputum culture - appetite stimulant - will discuss with oncology regarding site of biopsy. Most distal lesion accessible will be probably be biopsied; possibly liver. 2. RLL pneumonia likely post-obstructive 2/2 underlying malignancy - Chest CT shows extensive RLL pnuemonia - zosyn and vancomycin - continue fluids - steroids - maintain spo2>90% - o2 via nc prn Case was reviewed and discussed with attending physician, Dr. Min <Sriram Min - Last Filed: 09/26/17 17:02> Meds - Medications Medications: Current Medications Guaifenesin (Robitussin) 100 mg PO Q6H PRN PRN Reason: Cough Last Admin: 09/26/17 15:52 Dose: 100 mg Heparin Sodium/Sodium Chloride (Heparin 47932 Units/250ml 1/2 Normal Saline) 25 ,000 units in 250 mls @ 12.353 mls/hr IV .[id number] PRN; Protocol; 18 UNITS/KG/HR PRN Reason: ADJUST RATE PER PROTOCOL Last Admin: 09/26/17 10:35 Dose: 18 units/kg/hr, 12.353 mls/hr Pamidronate Disodium 90 mg/ (Sodium Chloride) 510 mls @ 127.5 mls/hr IVPB ONCE ONE Stop: 09/26/17 18:06 Last Admin: 09/26/17 15:25 Dose: 127.5 mls/hr Sodium Chloride (Sodium Chloride 0.45%) 1,000 mls @ 80 mls/hr IV .[id number] [facility] Stop: 09/27/17 22:00 Last Admin: 09/26/17 15:21 Dose: 80 mls/hr Vancomycin HCl (Vancomycin 1gm) 1 gm in 250 mls @ 167 mls/hr IVPB Q12H [facility] PRN Reason: Protocol Piperacillin Sod/Tazobactam Sod (Zosyn 3.375 In Ns 100ml) 100 mls @ 200 mls/hr IVPB Q6 [facility]O PRN Reason: Protocol Stop: 09/27/17 00:29 Levalbuterol HCl (Xopenex) 1.25 mg IH [id number] PRN PRN Reason: Shortness of Breath Metoprolol Tartrate (Lopressor) 25 mg PO BID [facility] Last Admin: 09/26/17 07:45 Dose: 25 mg Pantoprazole Sodium (Protonix Ec Tab) 40 mg PO 0600 [facility] Last Admin: 09/26/17 07:45 Dose: 40 mg Polyethylene Glycol (Miralax) 17 gm PO TID [facility] Last Admin: 09/26/17 13:26 Dose: 17 gm Results - Vital Signs Recent Vital Signs: Last Vital Signs Temp 97.1 F L 09/26/17 12:20 Pulse 62 09/26/17 12:20 Resp 18 09/26/17 12:20 BP 99/49 L 09/26/17 12:20 Pulse Ox 98 09/26/17 06:00 - Labs Result Diagrams: 09/26/17 02:10 09/26/17 02:10 Labs: Laboratory Results - last 24 hr 09/26/17 09/26/17 09/26/17 11:30 11:30 16:02 APTT 83.1 H Troponin I < 0.01 Prostate Specific Ag 0.5 Assessment & Plan - Assessment and Plan (Free Text) Plan: Patient seen and examined on rounds with resident, agree with note with following additions/exceptions: Patient is 76yo male without sig PMHx, former smoker 15pk years quit 5y ago, presented with poor appetite, cough, and SOB. Ct Chest done shows RLL PNA, likely post obstructive, diffuse moderate mediastinal MYA, and numerous extra- pulmonary lesions suggestive of metastatic process. History gathered from family (Son: Tony, Daughter: Opal, : Delphine). Pt has had 20lb weight loss over last 3 months, unintentional. Pt also has clear sputum production. PNA, post obstructive r/o Lung Ca with mets Recommend: - supp o2 as needed - duonebs PRN - would change abx to Vanco, Zosyn - Will need IR guided biopsy - Dr Jeremiah Toledo and I discussed the importance of IR CT guided biopsy with the family, the family refusing any type of biopsy, stating that they need to discuss it with other family members - Heme Onc Consult - DVT ppx
--- NOTE | 2017-09-26 15:56 | CON ---
DATE: 09/26/2017 CARDIOLOGY CONSULTATION HISTORY: The patient is a 76-year-old male, who presents with dyspnea. Examination including scans revealed suspicions of metastatic CA. While in the hospital, he was found to be in paroxysmal atrial fibrillation. He was placed on anticoagulation as well as beta blockers. Since, the patient is converted to normal sinus rhythm. According to the son, the patient has no previous cardiac history. He was a former heavy smoker since he stopped. SOCIAL HISTORY: He does not smoke now. REVIEW OF SYSTEMS: Fourteen-point review of systems is reviewed. No angina. Positive shortness of breath. Positive cough. Negative edema in the lower extremities. No previous myocardial infarction. PHYSICAL EXAMINATION: VITAL SIGNS: Blood pressure is 132/69, heart rate is in the 60s, normal sinus rhythm. NECK: Negative JVD. LUNGS: Decreased breath sounds. HEART: Reveals S1, S2. EXTREMITIES: Without edema. LABORATORY DATA: Laboratories include an EKG that shows atrial fibrillation with nonspecific ST-T changes. BUN and creatinine are unremarkable. Glucose is 129. Troponins are negative x2. Hemoglobin is 14.3. IMPRESSION: 1. Paroxysmal atrial fibrillation, which is back to normal sinus rhythm. 2. Chronic obstructive pulmonary disease. 3. Possible metastatic cancer disease. 4. Dyspnea. PLAN: Given these findings, we will maintain on beta-blockers and heparin for now. We will obtain an echocardiogram to evaluate LV function. Jeremiah Chirinos MD
--- NOTE | 2017-09-26 16:28 | CP.PCM.PN ---
Subjective - Date & Time of Evaluation Date of Evaluation: 09/26/17 Time of Evaluation: 15:30 - Subjective Subjective: Infectious Disease Follow Up: September 26, 2017 76 yo male with presentation of SOB and cough productive of sputum. The patient has had symptoms for the past 3 weeks. He was recently in [place] for his son's wedding. Patient states that "food does not taste the same". He has lost [address] scan showing extensive right lower lobe pneumonia but what is more concerning is the extensive mediastinal and hilar adenopathy with lytic lesion at T7. The patient has been started on IV Rocephin and Azithromycin for antibiotic care. No WBC. Procalcitonin of 8.8 at this time. New onset Atrial Fibrillation last night... transferred to telemetry. Objective - Vital Signs/Intake and Output Vital Signs (last 24 hours): Temp Pulse Resp BP Pulse Ox 97.1 F L 62 18 99/49 L 98 09/26/17 12:20 09/26/17 12:20 09/26/17 12:20 09/26/17 12:20 09/26/17 06:00 - Medications Medications: Current Medications Guaifenesin (Robitussin) 100 mg PO Q6H PRN PRN Reason: Cough Last Admin: 09/26/17 15:52 Dose: 100 mg Heparin Sodium/Sodium Chloride (Heparin 60215 Units/250ml 1/2 Normal Saline) 25 ,000 units in 250 mls @ 12.353 mls/hr IV .[id number] PRN; Protocol; 18 UNITS/KG/HR PRN Reason: ADJUST RATE PER PROTOCOL Last Admin: 09/26/17 10:35 Dose: 18 units/kg/hr, 12.353 mls/hr Pamidronate Disodium 90 mg/ (Sodium Chloride) 510 mls @ 127.5 mls/hr IVPB ONCE ONE Stop: 09/26/17 18:06 Last Admin: 09/26/17 15:25 Dose: 127.5 mls/hr Sodium Chloride (Sodium Chloride 0.45%) 1,000 mls @ 80 mls/hr IV .[id number] [facility] Stop: 09/27/17 22:00 Last Admin: 09/26/17 15:21 Dose: 80 mls/hr Vancomycin HCl (Vancomycin 1gm) 1 gm in 250 mls @ 167 mls/hr IVPB Q12H [facility] PRN Reason: Protocol Piperacillin Sod/Tazobactam Sod (Zosyn 3.375 In Ns 100ml) 100 mls @ 200 mls/hr IVPB Q6 [facility] PRN Reason: Protocol Stop: 09/27/17 00:29 Levalbuterol HCl (Xopenex) 1.25 mg IH [id number] PRN PRN Reason: Shortness of Breath Metoprolol Tartrate (Lopressor) 25 mg PO BID [facility] Last Admin: 09/26/17 07:45 Dose: 25 mg Pantoprazole Sodium (Protonix Ec Tab) 40 mg PO 0600 [facility] Last Admin: 09/26/17 07:45 Dose: 40 mg Polyethylene Glycol (Miralax) 17 gm PO TID [facility] Last Admin: 09/26/17 13:26 Dose: 17 gm - Labs Labs: APTT 83.1 Seconds (25.1-36.5) H 09/26/17 16:02 - Constitutional Appears: No Acute Distress, Cachectic, Chronically Ill - Head Exam Head Exam: ATRAUMATIC, NORMOCEPHALIC - Eye Exam Eye Exam: EOMI, PERRL Pupil Exam: NORMAL ACCOMODATION, PERRL - ENT Exam ENT Exam: Mucous Membranes Moist, Normal External Ear Exam, TM's Normal Bilaterally - Neck Exam Neck Exam: Full ROM, Normal Inspection - Respiratory Exam Respiratory Exam: Decreased Breath Sounds, Wheezes. absent: Rales, Rhonchi - Cardiovascular Exam Cardiovascular Exam: REGULAR RHYTHM, RRR, +S1, +S2 - GI/Abdominal Exam GI & Abdominal Exam: Soft, Normal Bowel Sounds. absent: Distended, Tenderness - Extremities Exam Extremities Exam: Full ROM, Normal Inspection - Neurological Exam Neurological Exam: Alert, Awake, CN II-XII Intact, Oriented x3 - Psychiatric Exam Psychiatric exam: Normal Affect, Normal Mood - Skin Skin Exam: Intact, Normal Color Assessment and Plan - Assessment and Plan (Free Text) Assessment: 76 yo male with large amount of weight loss (19 lbs) and multiple CT lung findings. The patient started on Ceftriaxone and Azithromycin. Must rule out malignancy. Check for Tuberculosis. Check PPD and Quantiferon. Consider surgery or IR evaluation for biopsy of suspicious areas. Supportive care. May need Heme/Onc evaluation as well. Check ESR and C-Reactive Protein. The most likely diagnosis given the current symptoms is malignancy. Given overall picture, Tuberculosis is a much less likely diagnosis. Overall ferry terminal agent prognosis is very poor. Thank you for allowing me to participate in the care of the patient, we will follow with you.
--- NOTE | 2017-09-26 16:39 | CP.PCM.CON ---
History of Present Illness - History of Present Illness History of Present Illness: Hipolito Pabon DO, IM Resident PGY-1 Hematology/Oncology Consultation Note for Dr. Lomeli Mr. Banerjee is a 76 year old male with PMH of gastritis and gastric ulcer who presented to ED on 09/24/17 with worsening cough and chest congestion. He explains that the cough started about four months ago and has worsened since. He returned from traveling in [place] about a week ago; he was there for a month visiting family. He states that while in [place] he received an injection for treatment of his cough but his family is unsure what the injection was. He also admits to using cough drops to try and relieve the cough but denies being prescribed any antibiotics. He endorses a 20 pound unintentional weight loss during the past three months. He also states that his appetite has decreased during that time as well. He reports some intermittent chest and abdominal pain that worsen when he coughs. He believes these are due to the congestion. Otherwise he denies fever, chills, night sweats, shortness of breath, hemoptysis, wheezing, nausea/vomiting/ diarrhea, peripheral swelling or pain. PMH: gastritis and gastric ulcer PSH: EGD with biopsy Home meds: none Allergies: NKDA Soc Hx: approximate 35 pack year smoking history, also used beetlenut ([employer]) in the past while living in [place], reports occassional alcohol use but stopped 25 years ago, denies any other drug use. 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 Review of Systems - Review of Systems Review of Systems: A 12 point ROS was reviewed with patient and negative except as stated in HPI Past Patient History - Tetanus Immunizations Tetanus Immunization: Unknown - Past Social History Smoking Status: Former Smoker - CARDIAC Hx Cardiac Disorders: No - PULMONARY Hx Respiratory Disorders: No - NEUROLOGICAL Hx Neurological Disorder: No - HEENT Hx HEENT Problems: No - RENAL Hx Chronic Kidney Disease: No - ENDOCRINE/METABOLIC Hx Endocrine Disorders: No - HEMATOLOGICAL/ONCOLOGICAL Hx Blood Disorders: No - INTEGUMENTARY Hx Dermatological Problems: No - MUSCULOSKELETAL/RHEUMATOLOGICAL Hx Musculoskeletal Disorders: No Hx Falls: No - GASTROINTESTINAL Hx Gastrointestinal Disorders: No - GENITOURINARY/GYNECOLOGICAL Hx Genitourinary Disorders: No - PSYCHIATRIC Hx Depression: No Hx Emotional Abuse: No Hx Physical Abuse: No Hx Substance Use: No - SURGICAL HISTORY Hx Surgeries: No Hx Amputation: No Other/Comment: colonoscopy [address] johnson, no findings. Meds Allergies/Adverse Reactions: Allergies Allergy/AdvReac Type Severity Reaction Status Date / Time No Known Allergies Allergy Verified 08/03/13 05:23 - Medications Medications: Current Medications Guaifenesin (Robitussin) 100 mg PO Q6H PRN PRN Reason: Cough Last Admin: 09/26/17 15:52 Dose: 100 mg Heparin Sodium/Sodium Chloride (Heparin 76095 Units/250ml 1/2 Normal Saline) 25 ,000 units in 250 mls @ 12.353 mls/hr IV .[id number] PRN; Protocol; 18 UNITS/KG/HR PRN Reason: ADJUST RATE PER PROTOCOL Last Admin: 09/26/17 10:35 Dose: 18 units/kg/hr, 12.353 mls/hr Pamidronate Disodium 90 mg/ (Sodium Chloride) 510 mls @ 127.5 mls/hr IVPB ONCE ONE Stop: 09/26/17 18:06 Last Admin: 09/26/17 15:25 Dose: 127.5 mls/hr Sodium Chloride (Sodium Chloride 0.45%) 1,000 mls @ 80 mls/hr IV .[id number] [facility] Stop: 09/27/17 22:00 Last Admin: 09/26/17 15:21 Dose: 80 mls/hr Vancomycin HCl (Vancomycin 1gm) 1 gm in 250 mls @ 167 mls/hr IVPB Q12H [facility] PRN Reason: Protocol Piperacillin Sod/Tazobactam Sod (Zosyn 3.375 In Ns 100ml) 100 mls @ 200 mls/hr IVPB Q6 FERNANDO PRN Reason: Protocol Stop: 09/27/17 00:29 Levalbuterol HCl (Xopenex) 1.25 mg IH [id number] PRN PRN Reason: Shortness of Breath Metoprolol Tartrate (Lopressor) 25 mg PO BID [facility] Last Admin: 09/26/17 07:45 Dose: 25 mg Pantoprazole Sodium (Protonix Ec Tab) 40 mg PO 0600 [facility] Last Admin: 09/26/17 07:45 Dose: 40 mg Polyethylene Glycol (Miralax) 17 gm PO TID [facility] Last Admin: 09/26/17 13:26 Dose: 17 gm Physical Exam - Constitutional Appears: Non-toxic, No Acute Distress - Head Exam Head Exam: ATRAUMATIC, NORMAL INSPECTION, NORMOCEPHALIC - Eye Exam Eye Exam: Normal appearance, PERRL Pupil Exam: NORMAL ACCOMODATION - ENT Exam ENT Exam: Mucous Membranes Moist, Normal Oropharynx - Neck Exam Neck exam: Positive for: Full Rom. Negative for: Tenderness, Thyromegaly Additional comments: fullness palpated on the right could represent lymphadenopathy - Respiratory Exam Respiratory Exam: Rales. absent: Accessory Muscle Use, Chest Wall Tenderness, Rhonchi, Wheezes, Respiratory Distress Additional comments: Faint rales heard at R lower lung base - Cardiovascular Exam Cardiovascular Exam: REGULAR RHYTHM, RRR, +S1, +S2. absent: Gallop, Rubs, Systolic Murmur - GI/Abdominal Exam GI & Abdominal Exam: Normal Bowel Sounds, Soft. absent: Guarding, Organomegaly , Rebound, Tenderness - Extremities Exam Extremities exam: Positive for: full ROM, normal capillary refill, normal inspection, pedal pulses present. Negative for: calf tenderness, pedal edema - Back Exam Back exam: NORMAL INSPECTION - Neurological Exam Neurological exam: Alert, Oriented x3 - Psychiatric Exam Psychiatric exam: Normal Affect, Normal Mood - Skin Skin Exam: Dry, Intact, Normal Color, Warm Results - Vital Signs Recent Vital Signs: Last Vital Signs Temp 97.1 F L 09/26/17 12:20 Pulse 62 09/26/17 12:20 Resp 18 09/26/17 12:20 BP 99/49 L 09/26/17 12:20 Pulse Ox 98 09/26/17 06:00 - Labs Result Diagrams: 09/26/17 02:10 09/26/17 02:10 Labs: Laboratory Results - last 24 hr 09/26/17 09/26/17 09/26/17 11:30 11:30 16:02 APTT 83.1 H Troponin I < 0.01 Prostate Specific Ag 0.5 Assessment & Plan - Assessment and Plan (Free Text) Assessment: Mr. Banerjee is a 76 year old male with PMH of gastritis and gastric ulcer found to have a RLL PNA in ED and was admitted for treatment. Follow up CT chest, abdomen, and pelvis was concerning for extensive mediastinal and hilar lymphadenopathy suspicious for underlying pulmonary malignancy. Scattered osteoblastic lesions in several vertebrae were suspicious for metastatic disease. Plan: Right lower lobe findings, adenopathy pattern, and osteoblastic lesions on chest , abdomen, pelvis CT is concerning for underlying pulmonary malignancy with metastatic disease. Dr. Jeremiah Toledo is consulted for urgent biopsy of the suspicious lesion. Until tissue diagnosis is made, no definitive treatment plan can be pursued. We explained to the family that these lesions may be concerning for underlying malignancy. The family wishes to wait until the PNA clears before doing the biopsy. Patient's is concerned because she states that one of her relatives was "never the same" after a similar biopsy. We explained that Dr. Toledo would come and discuss the biopsy procedure further. Pamidronate 90 mg was started for presumed metastatic disease. This will help to minimize metastatic disease impact until tissue diagnosis is made. Case and plan were reviewed and discussed in detail with my attending physician Dr. Armani Pabon DO Resident PGY-1 - Date & Time Date: 09/26/17 Time: 16:00
--- NOTE | 2017-09-26 17:37 | CARD ---
APPROVED REPORT Date of service: 09/26/2017 EXAM: Two-dimensional and M-mode echocardiogram with Doppler and color Doppler. INDICATION Atrial Fibrillation 2D DIMENSIONS Left Atrium (2D)3.8 (1.6-4.0cm)IVSd1.2 (0.7-1.1cm) LVDd3.8 (3.9-5.9cm)PWd1.1 (0.7-1.1cm) LVDs2.8 (2.5-4.0cm)FS (%) 26.6 % LVEF (%)52.9 (>50%) M-Mode DIMENSIONS Aortic Root2.60 (2.2-3.7cm)Aortic Cusp Exc.1.80 (1.5-2.0cm) Aortic Valve AoV Peak Knomvxka392.0cm/Milo Peak GR.8mmHg Mitral Valve MV E Nmenyzps26.0cm/sMV A Xzqbmdnz05.6cm/sE/A ratio0.9 TDI E/Lateral E'0.0E/Medial E'0.0 LEFT VENTRICLE The left ventricle is normal size. There is normal left ventricular wall thickness. The left ventricular function is normal. The left ventricular ejection fraction is within the normal range. There is normal LV segmental wall motion. Transmitral Doppler flow pattern is Grade I-abnormal relaxation pattern. RIGHT VENTRICLE The right ventricle is normal size. There is normal right ventricular wall thickness. The right ventricular systolic function is normal. ATRIA The left atrium size is normal. The right atrium size is normal. AORTIC VALVE The aortic valve is mildly thickened. No aortic regurgitation is present. There is no aortic valvular stenosis. MITRAL VALVE The mitral valve is mildly thickened. There is no mitral valve regurgitation noted. There is no mitral valve stenosis. TRICUSPID VALVE The tricuspid valve is normal in structure. There is no tricuspid valve regurgitation noted. PULMONIC VALVE The pulmonary valve is normal in structure. There is trace pulmonic valvular regurgitation. GREAT VESSELS The aortic root is normal in size. The IVC is normal in size and collapses >50% with inspiration. PERICARDIAL EFFUSION There is no pericardial effusion. <Conclusion> The left ventricle is normal size. There is normal left ventricular wall thickness. The left ventricular function is normal. The left ventricular ejection fraction is within the normal range. There is normal LV segmental wall motion. Transmitral Doppler flow pattern is Grade I-abnormal relaxation pattern.
[2017-09-26] MEDS: Vancomycin 1gm in NS 250ml 1 GM/250 ML BAG IVPB SCH (17:59)
[2017-09-26 18:00] LABS: TROPONIN I < 0.01 ng/mL
[2017-09-26] MEDS: Piperacillin/Tazobact 3.375 gm 100 ML IVPB SCH ×2 (18:11→23:06)
--- NOTE | 2017-09-26 18:42 | CARD ---
APPROVED REPORT Date of service: 09/26/2017 EKG Measurement Heart [id number] <Conclusion> Atrial fibrillation with rapid ventricular response Nonspecific ST and T wave abnormality, probably digitalis effect Abnormal ECG
[2017-09-27] MEDS: Vancomycin 1gm in NS 250ml 1 GM/250 ML BAG IVPB SCH ×2 (04:19→14:47)
[2017-09-27] MEDS: Sodium Chloride 0.45% 1,000 ML IV SCH ×2 (04:28→22:36)
[2017-09-27] MEDS: guaiFENesin 100 mg/5 ml Syrup UD PO PRN (05:28)
[2017-09-27] MEDS: Pantoprazole 40 mg EC Tab PO SCH (05:28)
[2017-09-27 06:58] LABS: HEMOGLOBIN 13.5 g/dL (14.0-18.0); MEAN CORPUSCULAR HEMOGLOBIN 29.2 pg (25.0-35.0); MEAN CORPUSCULAR HGB CONC 33.6 g/dl (31.0-37.0); RBC 4.62 10^6/uL (3.5-6.1); RED CELL DISTRIBUTION WIDTH 13.4 % (11.5-14.5); WHITE BLOOD COUNT 9.4 10^3/ul (4.5-11.0)
[2017-09-27] MEDS ORDERED: Iohexol 350 MG/100 ML VIAL ONE (07:16)
[2017-09-27 07:20] LABS: ALB/GLOB RATIO 0.9 (1.1-1.8); ALBUMIN 3.1 g/dL (3.0-4.8); ALT/SGPT 35 U/L (7-56); AST/SGOT 25 U/L (17-59); BLOOD UREA NITROGEN 11 mg/dL (7-21); CALCIUM 8.7 mg/dL (8.4-10.5); GFR AFRICAN-AMERICAN > 60; GFR NON-AFRICAN AMERICAN > 60
--- NOTE | 2017-09-27 07:38 | CP.PCM.PN ---
Subjective - Date & Time of Evaluation Date of Evaluation: 09/27/17 Time of Evaluation: 06:50 - Subjective Subjective: Hipolito Pabon DO, IM Resident PGY-1 Hematology/Oncology Progress Note for Dr. Lomeli Patient was seen and examined at bedside. He reports feeling a little shortness of breath last night before sleeping but that this has improved since then. His family still wishes to wait on his receiving a biopsy of the suspicious lung lesions. He was somnolent and difficult to arouse on initial exam this AM. But on repeat exam around 1100, RN reports that he has been alert and had just finished ambulating in the hallway with PT. Patient states that he was drowsy earlier because he had many tests last night and he is tired. Objective - Vital Signs/Intake and Output Vital Signs (last 24 hours): Temp Pulse Resp BP Pulse Ox 98.3 F 69 18 118/64 97 09/27/17 05:56 09/27/17 05:56 09/27/17 05:56 09/27/17 05:56 09/27/17 05:56 Intake and Output: 09/27/17 09/27/17 06:59 18:59 Intake Total 1390 Output Total 700 Balance 690 - Medications Medications: Current Medications Guaifenesin (Robitussin) 100 mg PO Q6H PRN PRN Reason: Cough Last Admin: 09/27/17 05:28 Dose: 100 mg Heparin Sodium/Sodium Chloride (Heparin 16618 Units/250ml 1/2 Normal Saline) 25 ,000 units in 250 mls @ 12.353 mls/hr IV .[id number] PRN; Protocol; 18 UNITS/KG/HR PRN Reason: ADJUST RATE PER PROTOCOL Last Admin: 09/26/17 10:35 Dose: 18 units/kg/hr, 12.353 mls/hr Sodium Chloride (Sodium Chloride 0.45%) 1,000 mls @ 80 mls/hr IV .[id number] [facility] Stop: 09/27/17 22:00 Last Admin: 09/27/17 04:28 Dose: 80 mls/hr Vancomycin HCl (Vancomycin 1gm) 1 gm in 250 mls @ 167 mls/hr IVPB Q12H FERNANDO PRN Reason: Protocol Last Admin: 09/27/17 04:19 Dose: 167 mls/hr Levalbuterol HCl (Xopenex) 1.25 mg IH [id number] PRN PRN Reason: Shortness of Breath Metoprolol Tartrate (Lopressor) 25 mg PO BID [facility] Last Admin: 09/26/17 18:10 Dose: 25 mg Pantoprazole Sodium (Protonix Ec Tab) 40 mg PO 0600 [facility] Last Admin: 09/27/17 05:28 Dose: 40 mg Polyethylene Glycol (Miralax) 17 gm PO TID [facility] Last Admin: 09/26/17 18:11 Dose: 17 gm - Labs Labs: 09/27/17 06:00 09/27/17 06:00 APTT 83.1 Seconds (25.1-36.5) H 09/26/17 16:02 - Constitutional Appears: Non-toxic, No Acute Distress - Head Exam Head Exam: ATRAUMATIC, NORMAL INSPECTION, NORMOCEPHALIC - Eye Exam Eye Exam: Normal appearance, PERRL - ENT Exam ENT Exam: Mucous Membranes Moist - Neck Exam Neck Exam: Full ROM. absent: Lymphadenopathy, Tenderness, Thyromegaly - Respiratory Exam Respiratory Exam: Decreased Breath Sounds, Rales. absent: Accessory Muscle Use , Chest Wall Tenderness, Rhonchi, Wheezes, Respiratory Distress Additional comments: faint rales auscultated over RLL - Cardiovascular Exam Cardiovascular Exam: REGULAR RHYTHM, RRR, +S1, +S2. absent: Gallop, JVD, Rubs, Murmur - GI/Abdominal Exam GI & Abdominal Exam: Soft, Normal Bowel Sounds. absent: Guarding, Tenderness, Organomegaly, Rebound - Extremities Exam Extremities Exam: Full ROM, Normal Capillary Refill, Normal Inspection. absent : Calf Tenderness, Pedal Edema - Neurological Exam Neurological Exam: Alert, Awake, Oriented x3 - Psychiatric Exam Psychiatric exam: Normal Affect, Normal Mood - Skin Skin Exam: Dry, Intact, Normal Color, Warm Assessment and Plan - Assessment and Plan (Free Text) Assessment: Mr. Banerjee is a 76 year old male with PMH of gastric ulcer and gastritis who was admitted for treatment of RLL PNA and then found to have findings on CT chest, abdomen, pelvis of a primary lung mass with probable metastatic disease in multiple vertebrae. Plan: At this time, patient and his family wish to wait to complete a biopsy until his PNA has resolved. We will discuss the importance of receiving the biopsy as soon as possible with the family more this afternoon. MRI of the thoracic spine ordered for further characterization of the extent of presumed metastatic disease in his spine. We explained that, given his metastatic disease, it is important that we obtain a tissue diagnosis as soon as possible. Until a tissue diagnosis is made, no definitive treatment plan can be pursued. Case and plan were reviewed and discussed in detail with my attending physician Dr. Armani Pabon DO Resident PGY-1
[2017-09-27] MEDS: Levalbuterol 1.25 MG/3 ML Inhal Soln UD IH PRN ×2 (07:41→13:53)
--- NOTE | 2017-09-27 08:31 | CT ---
Date of service: 09/27/2017 PROCEDURE: CT HEAD WITH AND WITHOUT CONTRAST HISTORY: lung mass r/o bran mets COMPARISON: None available. TECHNIQUE: Axial computed tomography images were obtained through the head/brain with and without intravenous contrast enhancement. Contrast dose: 100 cc of Omni 350 Radiation dose: Total exam DLP = 1508 mGy-cm. This CT exam was performed using one or more of the following dose reduction techniques: Automated exposure control, adjustment of the mA and/or kV according to patient size, and/or use of iterative reconstruction technique. FINDINGS: HEMORRHAGE: No intracranial hemorrhage. BRAIN: No mass, mass effect or edema. No abnormal intracranial enhancement. Chronic microvascular changes are seen in the right frontal periventricular white matter. VENTRICLES: Unremarkable. No hydrocephalus. CALVARIUM: Unremarkable. SINUSES: Unremarkable as visualized. No significant inflammatory changes. MASTOID AIR CELLS: Unremarkable as visualized. No mastoid effusion. OTHER FINDINGS: None. IMPRESSION: No evidence of metastatic disease. No acute intracranial findings
--- NOTE | 2017-09-27 09:52 | NM ---
Date of service: 09/26/2017 PROCEDURE: Whole Body Bone Scan HISTORY: lesions suspicious for cancer on CT chest, staging COMPARISON: CT 09/25/2017 TECHNIQUE: Following administration of 27.3 miCu of Tc MDP multiplanar whole body images were obtained. FINDINGS: Evidence for bony metastatic disease: There is increased activity at the L4 level corresponding to the compression fracture seen on CT. There is also activity at the T7 level corresponding to the lytic lesions seen on CT. Multiple rib lesions are seen consistent with metastatic disease. There is increased activity at the junction of the and manubrium and sternum. On CT this has the appearance of chronic of bony fusion. Degenerative uptake: Both shoulders Physiologic uptake: Normal physiologic activity in the kidneys. Other findings: None. IMPRESSION: Findings consistent with bony metastatic disease. See comments
[2017-09-27] MEDS: POLYETHYLENE GLYCOL 3350 17 GM/Dose PACKET PO SCH ×3 (10:26→18:22)
--- NOTE | 2017-09-27 11:45 | CP.PCM.CON ---
History of Present Illness - History of Present Illness History of Present Illness: Mr Layton is a 76 year old male with newly diagnosed lung mass with lesions to the bone. He presented with a three week history of a productive cough and shortness of breath. He also had a 15 lb weight loss. On admission, a CT of the chest on September 25, 2017 revealed extensive mediastinal and hilar adenopathy. The mass was 4.5cm inferior to the right hilum. There was a lytic lesion at T7 as well as scattered sclerotic lesions. There was a right lower lobe pneumonia. A CT of the abdomen and pelvis on September 25 2017 revealed a 2.1cm low density lesion in the liver. He had a CT of the head on September 27, 2017 revealed no suspicious masses. He had a bone scan which showed uptake in the L4 due to a compression fracture. There were multiple rib lesions consistent with metastatic disease. There was increased activity at T7 corresponding to the lytic lesion. Dr. Toledo was also consulted to arrange for a biopsy for pathologic confirmation. We were asked to see him for our input regarding radiation. Review of Systems - Constitutional Constitutional: Weight Loss - Respiratory Respiratory: Cough, Dyspnea, Dyspnea on Exertion Past Patient History - Tetanus Immunizations Tetanus Immunization: Unknown - Past Social History Smoking Status: Former Smoker Alcohol: Occasional Home Situation {Lives}: With Family - CARDIAC Hx Cardiac Disorders: No - PULMONARY Hx Respiratory Disorders: No - NEUROLOGICAL Hx Neurological Disorder: No - HEENT Hx HEENT Problems: No - RENAL Hx Chronic Kidney Disease: No - ENDOCRINE/METABOLIC Hx Endocrine Disorders: No - HEMATOLOGICAL/ONCOLOGICAL Hx Blood Disorders: No - INTEGUMENTARY Hx Dermatological Problems: No - MUSCULOSKELETAL/RHEUMATOLOGICAL Hx Musculoskeletal Disorders: No Hx Falls: No - GASTROINTESTINAL Hx Gastrointestinal Disorders: No - GENITOURINARY/GYNECOLOGICAL Hx Genitourinary Disorders: No - PSYCHIATRIC Hx Depression: No Hx Emotional Abuse: No Hx Physical Abuse: No Hx Substance Use: No - SURGICAL HISTORY Hx Surgeries: No Hx Amputation: No Other/Comment: colonoscopy [address] johnson, no findings. Meds Allergies/Adverse Reactions: Allergies Allergy/AdvReac Type Severity Reaction Status Date / Time No Known Allergies Allergy Verified 08/03/13 05:23 - Medications Medications: Current Medications Guaifenesin (Robitussin) 100 mg PO Q6H PRN PRN Reason: Cough Last Admin: 09/27/17 05:28 Dose: 100 mg Heparin Sodium/Sodium Chloride (Heparin 97393 Units/250ml 1/2 Normal Saline) 25 ,000 units in 250 mls @ 12.353 mls/hr IV .[id number] PRN; Protocol; 18 UNITS/KG/HR PRN Reason: ADJUST RATE PER PROTOCOL Last Admin: 09/26/17 10:35 Dose: 18 units/kg/hr, 12.353 mls/hr Sodium Chloride (Sodium Chloride 0.45%) 1,000 mls @ 80 mls/hr IV .[id number] [facility] Stop: 09/27/17 22:00 Last Admin: 09/27/17 04:28 Dose: 80 mls/hr Vancomycin HCl (Vancomycin 1gm) 1 gm in 250 mls @ 167 mls/hr IVPB Q12H [facility]ER[facility]NDO PRN Reason: Protocol Last Admin: 09/27/17 04:19 Dose: 167 mls/hr Levalbuterol HCl (Xopenex) 1.25 mg IH [id number] PRN PRN Reason: Shortness of Breath Last Admin: 09/27/17 07:41 Dose: 1.25 mg Metoprolol Tartrate (Lopressor) 25 mg PO BID [facility] Last Admin: 09/27/17 10:26 Dose: 25 mg Pantoprazole Sodium (Protonix Ec Tab) 40 mg PO 0600 [facility] Last Admin: 09/27/17 05:28 Dose: 40 mg Polyethylene Glycol (Miralax) 17 gm PO TID [facility] Last Admin: 09/27/17 10:26 Dose: 17 gm Physical Exam - Head Exam Head Exam: NORMAL INSPECTION - Eye Exam Eye Exam: EOMI - Respiratory Exam Respiratory Exam: Decreased Breath Sounds - Cardiovascular Exam Cardiovascular Exam: REGULAR RHYTHM - GI/Abdominal Exam GI & Abdominal Exam: Normal Bowel Sounds - Neurological Exam Neurological exam: CN II-XII Intact, Oriented x3 Results - Vital Signs Recent Vital Signs: Last Vital Signs Temp 97.8 F 09/27/17 11:32 Pulse 63 09/27/17 11:32 Resp 16 09/27/17 11:32 BP 116/57 L 09/27/17 11:32 Pulse Ox 97 09/27/17 05:56 - Labs Result Diagrams: 09/27/17 06:00 09/27/17 06:00 Labs: Laboratory Results - last 24 hr 0709/26/17 09/26/17 11:30 11:30 16:02 WBC RBC Hgb Hct MCV MCH MCHC RDW Plt Count MPV APTT 83.1 H Sodium Potassium Chloride Carbon Dioxide Anion Gap BUN Creatinine Est GFR ( Amer) Est GFR (Non-Af Amer) Random Glucose Calcium Total Bilirubin AST ALT Alkaline Phosphatase Lactate Dehydrogenase Troponin I < 0.01 Total Protein Albumin Globulin Albumin/Globulin Ratio Carcinoembryonic Ag Prostate Specific Ag 0.5 09/26/17 09/26/17 09/27/17 16:02 17:34 06:00 WBC 9.4 RBC 4.62 Hgb 13.5 L Hct 40.2 L MCV 87.0 MCH 29.2 MCHC 33.6 RDW 13.4 Plt Count 270 MPV 10.0 APTT Sodium Potassium Chloride Carbon Dioxide Anion Gap BUN Creatinine Est GFR ( Amer) Est GFR (Non-Af Amer) Random Glucose Calcium Total Bilirubin AST ALT Alkaline Phosphatase Lactate Dehydrogenase 570 Troponin I < 0.01 Total Protein Albumin Globulin Albumin/Globulin Ratio Carcinoembryonic Ag 144.0 H Prostate Specific Ag 09/27/17 06:00 WBC RBC Hgb Hct MCV MCH MCHC RDW Plt Count MPV APTT Sodium 138 Potassium 4.8 Chloride 102 Carbon Dioxide 26 Anion Gap 15 BUN 11 Creatinine 0.9 Est GFR ( Amer) > 60 Est GFR (Non-Af Amer) > 60 Random Glucose 89 Calcium 8.7 Total Bilirubin 1.0 AST 25 ALT 35 Alkaline Phosphatase 124 Lactate Dehydrogenase Troponin I Total Protein 6.5 Albumin 3.1 Globulin 3.4 Albumin/Globulin Ratio 0.9 L Carcinoembryonic Ag Prostate Specific Ag Assessment & Plan - Assessment and Plan (Free Text) Assessment: Mr Layton is a 76 year old gentleman with a right lung with narrowing of the airway as well as bone and liver lesion, most likely lung primary. We would recommend a MRI of the thoracic spine to evaluate the T7 lesion more closely. We would concur that he would need a biopsy for pathologic confirmation. Based on the imaging studies, we would recommend palliative radiation to the right lung mass given the narrowing of the bronchus as well as postobstructive findings as well as to the T7 lesion which is in close proximity to the canal. We spoke to him about radiation. We will touch base with Dr Lomeli as well before finalizing a plan. We are waiting to touch base with his family as well.
--- NOTE | 2017-09-27 12:40 | CP.PCM.PN ---
<Devin Stevenson - Last Filed: 09/27/17 15:03> Subjective - Date & Time of Evaluation Date of Evaluation: 09/27/17 Time of Evaluation: 07:45 - Subjective Subjective: Devin Stevenson DO PGY-1, [employer] Medicine Progress Note Pt seen and examined at bedside. States he slept well overnight, states productive cough is improving, Robitussin is helping with symptoms. No acute complaints. Per overnight report pt had episode of rapid atrial fibrillation overnight that converted to normal sinus rhythm on own after several minutes. Objective - Vital Signs/Intake and Output Vital Signs (last 24 hours): Temp Pulse Resp BP Pulse Ox 97.8 F 63 16 116/57 L 97 09/27/17 11:32 09/27/17 11:32 09/27/17 11:32 09/27/17 11:32 09/27/17 05:56 Intake and Output: 09/27/17 09/27/17 06:59 18:59 Intake Total 1390 Output Total 700 Balance 690 - Medications Medications: Current Medications Guaifenesin (Robitussin) 100 mg PO Q6H PRN PRN Reason: Cough Last Admin: 09/27/17 05:28 Dose: 100 mg Heparin Sodium/Sodium Chloride (Heparin 86517 Units/250ml 1/2 Normal Saline) 25 ,000 units in 250 mls @ 12.353 mls/hr IV .[id number] PRN; Protocol; 18 UNITS/KG/HR PRN Reason: ADJUST RATE PER PROTOCOL Last Admin: 09/26/17 10:35 Dose: 18 units/kg/hr, 12.353 mls/hr Sodium Chloride (Sodium Chloride 0.45%) 1,000 mls @ 80 mls/hr IV .[id number] FERNANDO Stop: 09/27/17 22:00 Last Admin: 09/27/17 04:28 Dose: 80 mls/hr Vancomycin HCl (Vancomycin 1gm) 1 gm in 250 mls @ 167 mls/hr IVPB Q12H FERNANDO PRN Reason: Protocol Last Admin: 09/27/17 04:19 Dose: 167 mls/hr Levalbuterol HCl (Xopenex) 1.25 mg IH [id number] PRN PRN Reason: Shortness of Breath Last Admin: 09/27/17 07:41 Dose: 1.25 mg Metoprolol Tartrate (Lopressor) 25 mg PO BID [facility] Last Admin: 09/27/17 10:26 Dose: 25 mg Pantoprazole Sodium (Protonix Ec Tab) 40 mg PO 0600 [facility] Last Admin: 09/27/17 05:28 Dose: 40 mg Polyethylene Glycol (Miralax) 17 gm PO TID [facility] Last Admin: 09/27/17 10:26 Dose: 17 gm - Labs Labs: 09/27/17 06:00 09/27/17 06:00 APTT 83.1 Seconds (25.1-36.5) H 09/26/17 16:02 - Constitutional Appears: No Acute Distress, Chronically Ill - Head Exam Head Exam: ATRAUMATIC, NORMAL INSPECTION, NORMOCEPHALIC - Eye Exam Eye Exam: EOMI, Normal appearance, PERRL - ENT Exam ENT Exam: Mucous Membranes Moist, Normal Oropharynx - Neck Exam Neck Exam: Full ROM, Normal Inspection - Respiratory Exam Respiratory Exam: NORMAL BREATHING PATTERN Additional comments: Coarse breath sounds in all lung chacon, crackles heard in R lower lobe - Cardiovascular Exam Cardiovascular Exam: REGULAR RHYTHM, +S1, +S2 - GI/Abdominal Exam GI & Abdominal Exam: Soft, Normal Bowel Sounds - Extremities Exam Extremities Exam: Full ROM, Normal Capillary Refill, Normal Inspection - Back Exam Back Exam: Full ROM, NORMAL INSPECTION - Neurological Exam Neurological Exam: Alert, Awake, CN II-XII Intact, Oriented x3 - Psychiatric Exam Psychiatric exam: Normal Affect, Normal Mood - Skin Skin Exam: Dry, Intact, Normal Color, Warm Assessment and Plan - Assessment and Plan (Free Text) Assessment: 76 y o male, PMhx GI ulcer in 2014, presented with 3 wk hx of productive cough with whitish-yellow sputum and shortness of breath. Found to have R lower lobe consolidation, pt being treated for community-acquired pneumonia with IV antibiotics. Found on CT chest to have findings in lungs b/l and vertebral spine suspicious for malignancy. CT abd/pelvis revealed lesion in liver and fracture in lumbar spine possibly acute/pathologic. Further work-up pending. Pt also had rapid response on 09/26/17 for new-onset atrial fibrillation with rapid ventricular response. ID, Pulm, Heme/Onc, Radiation Onc, IR, and Cardio consulted. Decision to be made by pt and family whether pt will undergo biopsy for further work-up of suspicious malignancy. Plan: Community-Acquired Pneumonia Pt afebrile since admission Ceftriaxone and azithromycin d/c'd Pt started on vancomycin and zosyn as per pulm, RLL PNA likely post-obstructive 2/2 underlying malignancy C/w Xopenex 1.25 mg q6h PRN Robitussin prn for cough/chest congestion Sputum cx 09/25: final results neg for growth Blood cx 09/25: NGTD U/a 09/25: trace blood Procalcitonin elevated 8.8 Legionella Ag neg CXR on admission 09/25: extensive alveolar infiltrate in R lower lobe consistent with pneumonia Repeat CXR 09/26: unchanged from prior study ID consulted (Dr. Coker), recs appreciated Pulm consulted (Dr. Min), recs appreciated Suspicious malignancy Pt admitted to 20 lb weight loss in 1 month without trying, decreased appetite CT chest 09/25: extensive mediastinal and hilar lymphadenopathy suspicious for underlying pulmonary malignancy. Lytic lesion at T7 consistent with metastatic disease. Scattered sclerotic lesions. Extensive R lower lobe pneumonia. Ct abd/pelvis 09/25: scattered osteoblastic lesions in multiple vertebral bodies , posterior elements and ribs. Age-indetermine fracture of L4 superior end-plate , may be acute and/or pathologic. Low density lesion in anterolateral liver, metastasis suspected. Bone scan 09/26: findings consistent with bony metastatic disease Ct head 09/27: no evidence of metastatic disease, no acute intracranial findings PSA wnl Pulm consulted, recs appreciated Heme/onc consulted (Dr. Lomeli), recs appreciated IR consulted (Dr. Toledo) for possible biopsy, recs appreciated, pt and family to decide whether to have biopsy done Radiation onc consulted (Dr. Iqbal): pending MRI thoracic spine to eval T7 lesion more closely, recommend palliative radiation to R lung mass, will discuss further with heme/onc team New-onset atrial fibrillation with rapid ventricular response Rapid response called on 09/26/17; pt had additional episode overnight that converted back to normal sinus rhythm after several minutes spontaneously C/w metoprolol 25 mg PO bid C/w heparin drip Continue to monitor, pt asymptomatic and hemodynamically stable at this time Cardio consulted (Dr. Chirinos), recs appreciated DVT/GI ppx: Heparin drip/Protonix Pt seen, examined with, and plan discussed with Dr. Owens, attending Devin Stevenson DO PGY-1, [employer] Pager #[phone] <Lenka Owens - Last Filed: 09/29/17 16:08> Objective - Vital Signs/Intake and Output Vital Signs (last 24 hours): Temp Pulse Resp BP Pulse Ox 97.6 F 109 H 18 99/51 L 97 09/29/17 12:00 09/29/17 12:00 09/29/17 12:00 09/29/17 12:00 09/29/17 06:00 Intake and Output: 09/29/17 09/29/17 06:59 18:59 Intake Total 4602 250 Output Total 1000 Balance 3602 250 - Medications Medications: Current Medications Benzonatate (Tessalon Perles) 100 mg PO Q8 [facility] Last Admin: 09/29/17 11:19 Dose: 100 mg Guaifenesin (Robitussin) 100 mg PO Q6H PRN PRN Reason: Cough Last Admin: 09/29/17 06:01 Dose: 100 mg Vancomycin HCl (Vancomycin 1gm) 1 gm in 250 mls @ 167 mls/hr IVPB Q12H FERNANDO PRN Reason: Protocol Last Admin: 09/29/17 03:56 Dose: 167 mls/hr Heparin Sodium/Sodium Chloride (Heparin 05575 Units/250ml 1/2 Normal Saline) 25 ,000 units in 250 mls @ 10.005 mls/hr IV .Q24H PRN; Protocol; 14.23 UNITS/KG/HR PRN Reason: ADJUST RATE PER PROTOCOL Last Admin: 09/29/17 13:15 Dose: 14.23 units/kg/hr, 10.005 mls/hr Piperacillin Sod/Tazobactam Sod (Zosyn 3.375 In Ns 100ml) 100 mls @ 200 mls/hr IVPB Q6 FERNANDO PRN Reason: Protocol Stop: 09/29/17 18:29 Levalbuterol HCl (Xopenex) 0.63 mg IH Q2 PRN PRN Reason: Shortness of Breath Last Admin: 09/29/17 01:40 Dose: 0.63 mg Metoprolol Tartrate (Lopressor) 25 mg PO BID [facility] Last Admin: 09/29/17 11:20 Dose: 25 mg Pantoprazole Sodium (Protonix Ec Tab) 40 mg PO 0600 [facility] Last Admin: 09/29/17 06:01 Dose: 40 mg - Labs Labs: 09/29/17 07:30 09/29/17 06:30 PT 15.6 SECONDS (9.4-12.5) H 09/29/17 06:30 INR 1.35 (0.93-1.08) H 09/29/17 06:30 APTT 56.8 Seconds (25.1-36.5) H 09/29/17 06:30 Attending/Attestation - Attestation I have personally seen and examined this patient.: Yes I have fully participated in the care of the patient.: Yes I have reviewed all pertinent clinical information, including history, physical exam and plan: Yes Notes (Text): 09/29/17 16:07 Medical record note made by the resident after discussion with my direction and input after the patient was personally seen and examined by me. I have reviewed the chart and agree that the record accurately reflects by personal performance of the history, physical exam, data review, and medical decision-making, in the course for the patient. I have also personally directed the plan of care. 76 yrs old male with PMHx, of chronic smoking 15pk years quit 5y ago, presented with poor appetite, cough, and SOB. Ct Chest done shows RLL PNA, likely post obstructive, diffuse moderate mediastinal MYA, and numerous extra- pulmonary lesions suggestive of metastatic process.CT abd/pelvis revealed lesion in liver and fracture in lumbar spine possible metastasis. . Pt also had rapid response on 09/26/17 for new-onset atrial fibrillation with rapid ventricular response. Post Obstructive Pneumonia. Patient is afebrile, on IV vancomycin and zosyn as per ID.Cultures are negative.ID is following. Metastatic Malignancy. Patient and family has refused biopsy of liver lesion, discuss with him in detail. AF, rate is controlled with Metoprolol, on anticoagulation with Heparin drip for now, can be changed to Apixiban if no plan for any biopsy . Prognosis is guarded. Management plan was discussed in detail with patient. Education was provided.
--- NOTE | 2017-09-27 16:47 | MRI ---
Date of service: 09/27/2017 PROCEDURE: MR THORACIC SPINE WITHOUT CONTRAST HISTORY: T7 lesion abut canal r/o epidural/cord compression COMPARISON: Chest CT 09/25/2017 TECHNIQUE: Multiecho multiplanar sequences were performed through the thoracic spine without the use of intravenous contrast. The study was limited to the sagittal plane. Only limited axial imaging was performed. The patient could not tolerate any further scanning FINDINGS: ALIGNMENT: Normal thoracic spinal alignment. Normal thoracic kyphosis. VERTEBRA: Vertebral body height are preserved. MARROW: The MRI a shows much more extensive metastatic disease involving multiple vertebral bodies. The previous CT showed a lytic lesion posteriorly at T7. There is no evidence of epidural invasion or cord compression. PARASPINAL SOFT TISSUES: Unremarkable. CORD: Unremarkable thoracic cord. No volume loss, signal abnormality or syrinx. DISCS: No disc herniation, spinal canal stenosis, or neuroforaminal narrowing. OTHER FINDINGS: None. IMPRESSION: Diffuse multilevel metastatic disease. No evidence of epidural invasion or cord compression
--- NOTE | 2017-09-27 18:49 | CP.PCM.PN ---
Subjective - Date & Time of Evaluation Date of Evaluation: 09/27/17 Time of Evaluation: 18:00 - Subjective Subjective: Infectious Disease Follow Up: September 27, 2017 76 yo male with presentation of SOB and cough productive of sputum. The patient has had symptoms for the past 3 weeks. He was recently in [place] for his son's wedding. Patient states that "food does not taste the same". He has lost [address] scan showing extensive right lower lobe pneumonia but what is more concerning is the extensive mediastinal and hilar adenopathy with lytic lesion at T7. The patient has been started on IV Rocephin and Azithromycin for antibiotic care. No WBC. Procalcitonin of 8.8 at this time. New onset Atrial Fibrillation two nights ago... transferred to telemetry. The family and the patient have been refusing biopsy at this time. Objective - Vital Signs/Intake and Output Vital Signs (last 24 hours): Temp Pulse Resp BP Pulse Ox 98.6 F 82 18 121/63 97 09/27/17 17:39 09/27/17 17:39 09/27/17 17:39 09/27/17 18:22 09/27/17 05:56 Intake and Output: 09/27/17 09/27/17 06:59 18:59 Intake Total 1390 600 Output Total 700 600 Balance 690 0 - Medications Medications: Current Medications Guaifenesin (Robitussin) 100 mg PO Q6H PRN PRN Reason: Cough Last Admin: 09/27/17 05:28 Dose: 100 mg Heparin Sodium/Sodium Chloride (Heparin 60938 Units/250ml 1/2 Normal Saline) 25 ,000 units in 250 mls @ 12.353 mls/hr IV .[id number] PRN; Protocol; 18 UNITS/KG/HR PRN Reason: ADJUST RATE PER PROTOCOL Last Admin: 09/26/17 10:35 Dose: 18 units/kg/hr, 12.353 mls/hr Sodium Chloride (Sodium Chloride 0.45%) 1,000 mls @ 80 mls/hr IV .[id number] FERNANDO Stop: 09/27/17 22:00 Last Admin: 09/27/17 04:28 Dose: 80 mls/hr Vancomycin HCl (Vancomycin 1gm) 1 gm in 250 mls @ 167 mls/hr IVPB Q12H FERNANDO PRN Reason: Protocol Last Admin: 09/27/17 14:47 Dose: 167 mls/hr Levalbuterol HCl (Xopenex) 1.25 mg IH [id number] PRN PRN Reason: Shortness of Breath Last Admin: 09/27/17 13:53 Dose: 1.25 mg Metoprolol Tartrate (Lopressor) 25 mg PO BID [facility] Last Admin: 09/27/17 18:22 Dose: 25 mg Pantoprazole Sodium (Protonix Ec Tab) 40 mg PO 0600 [facility] Last Admin: 09/27/17 05:28 Dose: 40 mg Polyethylene Glycol (Miralax) 17 gm PO TID [facility] Last Admin: 09/27/17 18:22 Dose: 17 gm - Labs Labs: 09/27/17 06:00 09/27/17 06:00 APTT 83.1 Seconds (25.1-36.5) H 09/26/17 16:02 - Constitutional Appears: No Acute Distress, Cachectic, Chronically Ill - Head Exam Head Exam: ATRAUMATIC, NORMOCEPHALIC - Eye Exam Eye Exam: EOMI, PERRL Pupil Exam: NORMAL ACCOMODATION, PERRL - ENT Exam ENT Exam: Mucous Membranes Moist, Normal External Ear Exam, TM's Normal Bilaterally - Neck Exam Neck Exam: Full ROM, Normal Inspection - Respiratory Exam Respiratory Exam: Decreased Breath Sounds, Wheezes. absent: Rales, Rhonchi - Cardiovascular Exam Cardiovascular Exam: REGULAR RHYTHM, RRR, +S1, +S2 - GI/Abdominal Exam GI & Abdominal Exam: Soft, Normal Bowel Sounds. absent: Distended, Tenderness - Extremities Exam Extremities Exam: Full ROM, Normal Inspection - Neurological Exam Neurological Exam: Alert, Awake, CN II-XII Intact, Oriented x3 - Psychiatric Exam Psychiatric exam: Normal Affect, Normal Mood - Skin Skin Exam: Intact, Normal Color Assessment and Plan - Assessment and Plan (Free Text) Assessment: 76 yo male with large amount of weight loss (19 lbs) and multiple CT lung findings. The patient started on Ceftriaxone and Azithromycin. Must rule out malignancy. Check for Tuberculosis. Check PPD and Quantiferon. Consider surgery or IR evaluation for biopsy of suspicious areas. Supportive care. May need Heme/Onc evaluation as well. Check ESR and C-Reactive Protein. The most likely diagnosis given the current symptoms is malignancy. Given overall picture, Tuberculosis is a much less likely diagnosis. Malignancy is extremely likely. 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 Thank you for allowing me to participate in the care of the patient, we will follow with you.
--- NOTE | 2017-09-27 19:37 | PN ---
DATE: 09/27/[address] Jeremiah Chirinos. SUBJECTIVE: The patient is currently short of breath, on nasal O2. He denies any chest pain. PHYSICAL EXAMINATION: VITAL SIGNS: Blood pressure 116/57, heart rate 63, temperature 97.8, respirations 16. HEENT: Normocephalic. CHEST: Right basilar coarse crepitations and diffuse bilateral expiratory wheezing. HEART: S1, S2 regular. ABDOMEN: Soft. EXTREMITIES: No edema. IMAGING DATA: EKG reveals atrial fibrillation at the rate of 151, nonspecific ST-T wave changes. Echocardiographic study revealed normal ventricular size wall thickness and ejection fraction with grade 1 of normal relaxation pattern. Thoracic spine MRI reveals diffuse multilevel metastatic disease. Head CT scan without contrast, no evidence of metastatic disease. Bone scan, bony metastatic disease. Abdomen and pelvis CT scan, scattered osseous sclerotic lesion including multiple vertebral bodies, posterior elements and ribs. Age indeterminate fracture of L5 superior endplate maybe acute or pathologic. Chest CT scan, extensive mediastinal, hilar retinopathy suspicious for underlying pulmonary malignancy. Lytic lesions in T7 consistent with metastatic disease, extensive right lower lobe pneumonia. ASSESSMENT: 1. 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 2. Paroxysmal atrial fibrillation. 3. Chronic obstructive lung disease. 4. Right lower lobe pneumonia. CONDITIONS: Continue current intravenous heparin and therapeutic regimen. Please continue Lopressor 25 mg twice a day, IV vancomycin 1 g every 12 hours, Robitussin 100 mg p.o. every 6 hours. Carloz Kapadia MD
--- NOTE | 2017-09-27 21:53 | CON ---
DATE: 09/27/2017 PULMONARY CONSULTATION REFERRING PHYSICIAN: Lenka Owens MD. REASON FOR CONSULTATION: Mediastinal, hilar adenopathy with right lower lobe infiltrate. HISTORY OF PRESENT ILLNESS This is a 76-year-old gentleman who recently lost 15-pound weight, presented to Emergency Room with cough, shortness of breath, has a CAT scan of the chest done which shows extensive mediastinal, hilar adenopathy with right hilar 4.5 cm mass. Further workup shows lytic lesion in T7, right lower lobe pneumonia, also found to have a lesion in the liver. Also, had a bone scan done which shows uptake in the L4 region, multiple ribs are involved, suggestive of metastatic disease. The patient was seen by Hematology/Oncology, Radiation Oncology as well as Interventional Radiology for possible biopsy and further workup. Apparently, so far, the patient refused the biopsy. He has some cough and shortness of breath. No hemoptysis. No hematemesis. No hematuria. No diarrhea reported. PAST MEDICAL HISTORY: Probably of a chronic lung disease. ALLERGIES: NONE KNOWN. SOCIAL HISTORY: He is a smoker. Denies any alcohol use. FAMILY HISTORY: No significant cardiopulmonary disease reported. MEDICATIONS: He is on heparin which is placed on hold, metoprolol tartrate 25 mg twice a day, MiraLax 17 g three times a day, Protonix 40 mg daily, Robitussin 100 mg every 6 hours p.r.n., IV fluid half-normal saline 80 mL per hour, vancomycin 1 g IV every 12 hours, and Xopenex inhaled every 6 hours. REVIEW OF SYSTEMS: No headache, no rhinitis. Has cough, shortness of breath. No chest pain. Lost 15 pounds or so weight. No pain. No nausea. No vomiting. No diarrhea. No leg pain or leg swelling. PHYSICAL EXAMINATION: GENERAL: Lying in the bed with mild cough and shortness of breath. VITAL SIGNS: Temperature is 98, heart rate is 82, respiratory rate is 18, blood pressure 121/63, pulse ox 97% on 2 liters nasal cannula. HEENT: Moist mucous membranes. No ulcer or thrush noted. NECK: Supple. No JVD. LUNGS: Have scattered rhonchi and wheezing. Decreased breath sounds at the right base. HEART: S1 and S2. ABDOMEN: Soft, nontender. No organomegaly. EXTREMITIES: No edema. NEUROLOGIC: Awake, alert, follows simple command. LABORATORY DATA: Had EKG done on admission, shows normal sinus rhythm, possible left atrial enlargement. Echocardiogram done yesterday shows left ventricle is normal size. Normal left ventricular wall thickening. LV ejection fraction is normal. Bone scan done yesterday shows findings consistent with bony metastatic disease. CT of the chest shows extensive mediastinal and hilar adenopathy suspicious for underlying pulmonary malignancy. There is also a lytic lesion at T7. Extensive right lower lobe pneumonia. CT of the head was unremarkable. IMPRESSION AND PLAN: CT and bone scan findings suggestive of metastatic disease, may also have a right lower lobe pneumonia. There is another lesion in the liver, bony metastasis to the spine as well as multiple ribs. There may be a component of chronic lung disease. Case discussed with the patient. Also spoke to Dr. Owens. The patient does need biopsy, right hilar node could be biopsied. Family and patient are still in discussion for further treatment. We will continue to help them through the tough time. For now, inhaled bronchodilator. Keep head at 45 degrees. Continue antibiotics. Gastric prophylaxis. Sequential compression devices to lower extremity. Thank you and we will follow with you. Lenka García MD
[2017-09-28] MEDS: guaiFENesin 100 mg/5 ml Syrup UD PO PRN ×2 (00:27→22:54)
[2017-09-28] MEDS: Levalbuterol 1.25 MG/3 ML Inhal Soln UD IH PRN (03:25)
[2017-09-28] MEDS ORDERED: Metoprolol 1 mg/ml Inj IVP ONE ×2 (05:10→05:17)
[2017-09-28] MEDS: Vancomycin 1gm in NS 250ml 1 GM/250 ML BAG IVPB SCH ×2 (05:17→17:43)
[2017-09-28] MEDS: Pantoprazole 40 mg EC Tab PO SCH (05:18)
[2017-09-28] MEDS: Levalbuterol 0.63 MG/3 ML Inhal Soln UD IH PRN ×2 (08:11→13:58)
--- NOTE | 2017-09-28 09:20 | CP.PCM.PN ---
Subjective - Date & Time of Evaluation Date of Evaluation: 09/28/17 Time of Evaluation: 07:30 - Subjective Subjective: Hipolito Pabon DO, IM Resident PGY-1 Hematology/Oncology Progress Note for Dr. Lomeli Patient was seen and examined at bedside. He is upset that he is not able to sleep well in the hospital, such as the lab technicians waking him up early for blood work. He states that his SOB has improved but that he would like to rest. He denies fever, chills, chest pain, SOB, nausea/vomiting/diarrhea and has no additional complaints this morning. He had an episode of AFib last night but states he does not recall any palpitations. He is currently on heparin drip and diltiazem for this episode of AFib. Objective - Vital Signs/Intake and Output Vital Signs (last 24 hours): Temp Pulse Resp BP Pulse Ox 98.8 F 62 20 118/91 H 98 09/28/17 06:00 09/28/17 06:00 09/28/17 06:00 09/28/17 06:00 09/28/17 06:00 Intake and Output: 09/28/17 09/28/17 06:59 18:59 Intake Total 890 Balance 890 - Medications Medications: Current Medications Guaifenesin (Robitussin) 100 mg PO Q6H PRN PRN Reason: Cough Last Admin: 09/28/17 00:27 Dose: 100 mg Heparin Sodium/Sodium Chloride (Heparin 75650 Units/250ml 1/2 Normal Saline) 25 ,000 units in 250 mls @ 12.353 mls/hr IV .[id number] PRN; Protocol; 18 UNITS/KG/HR PRN Reason: ADJUST RATE PER PROTOCOL Last Admin: 09/26/17 10:35 Dose: 18 units/kg/hr, 12.353 mls/hr Vancomycin HCl (Vancomycin 1gm) 1 gm in 250 mls @ 167 mls/hr IVPB Q12H FERNANDO PRN Reason: Protocol Last Admin: 09/28/17 05:17 Dose: 167 mls/hr Levalbuterol HCl (Xopenex) 0.63 mg IH Q2 PRN PRN Reason: Shortness of Breath Last Admin: 09/28/17 08:11 Dose: 0.63 mg Metoprolol Tartrate (Lopressor) 50 mg PO BID FERNANDO Pantoprazole Sodium (Protonix Ec Tab) 40 mg PO 0600 [facility] Last Admin: 09/28/17 05:18 Dose: 40 mg Polyethylene Glycol (Miralax) 17 gm PO TID [facility] Last Admin: 09/27/17 18:22 Dose: 17 gm - Labs Labs: 09/27/17 06:00 09/27/17 06:00 APTT 83.1 Seconds (25.1-36.5) H 09/26/17 16:02 - Constitutional Appears: Non-toxic, No Acute Distress - Head Exam Head Exam: ATRAUMATIC, NORMAL INSPECTION, NORMOCEPHALIC - Eye Exam Eye Exam: Normal appearance, PERRL - ENT Exam ENT Exam: Mucous Membranes Dry, Normal Oropharynx - Neck Exam Neck Exam: Full ROM. absent: Lymphadenopathy, Tenderness, Thyromegaly - Respiratory Exam Respiratory Exam: Wheezes. absent: Rales, Rhonchi Additional comments: End expiratory wheezes bilaterally - Cardiovascular Exam Cardiovascular Exam: REGULAR RHYTHM, RRR, +S1, +S2. absent: Gallop, Rubs, Murmur - GI/Abdominal Exam GI & Abdominal Exam: Soft, Normal Bowel Sounds. absent: Guarding, Tenderness, Organomegaly, Rebound - Extremities Exam Extremities Exam: Full ROM, Normal Capillary Refill, Normal Inspection. absent : Calf Tenderness, Pedal Edema - Neurological Exam Neurological Exam: Alert, Oriented x3 - Psychiatric Exam Psychiatric exam: Normal Affect, Normal Mood - Skin Skin Exam: Dry, Intact, Normal Color, Warm Assessment and Plan - Assessment and Plan (Free Text) Assessment: Mr. Banerjee is a 76 year old male with PMH of gastric ulcer and gastritis who was admitted for treatment of RLL PNA and then found to have findings on CT chest, abdomen, pelvis of a primary lung mass with probable metastatic disease in multiple vertebrae. Plan: We spoke with the family at bedside around 1530 this afternoon. We explained the importance of obtaining a biopsy of the lung, as no definitive treatment plan can be pursued without a tissue diagnosis. We explained that obtaining a lung biopsy would be preferrable to obtaining a liver biopsy as this is most likely a primary lung tumor with metastases to the bone and liver. We spoke with Dr. García who explained that he would prefer Dr. Toledo do the biopsy as the primary lesion of concern would not be accessible via bronchoscopy. The family spoke with Dr. Toledo previously and the patient and family are agreeable to Dr. Toledo performing the biopsy on Sunday. We will continue to monitor him over the weekend. We will discuss with the primary team and cardiology about holding the heparin drip prior to his biopsy on Sunday. We will communicate with Dr. Toledo to make sure it is scheduled for Sunday. Case and plan were reviewed and discussed in detail with my attending physician Dr. Armani Pabon DO IM Resident PGY-1
[2017-09-28] MEDS: POLYETHYLENE GLYCOL 3350 17 GM/Dose PACKET PO SCH (09:35)
[2017-09-28] MEDS ORDERED: Digoxin 500 mcg/2ml (0.5 mg/2ml) Inj IVP ONE (09:44)
[2017-09-28] MEDS: Heparin25000 units/250ml 1/2NS 25,000 UNITS/250 ML BAG IV PRN (10:10)
[2017-09-28] MEDS ORDERED: Heparin25000 units/250ml 1/2NS 25,000 UNITS/250 ML BAG IV PRN (10:33)
[2017-09-28] MEDS: Sodium Chloride 0.9% 1,000 ML IV SCH ×3 (12:10→19:45)
--- NOTE | 2017-09-28 12:18 | PN ---
DATE: 09/28/2017 FOLLOWUP SUBJECTIVE: The patient is sleepy. He is in paroxysmal atrial fibrillation. No report of ventricular tachycardia or hypertension. PHYSICAL EXAMINATION: VITAL SIGNS: Blood pressure 118/91, heart rate 62, temperature 98.8, respirations 20. HEENT: Normocephalic. CHEST: Bilateral rhonchi and scattered wheezing. HEART: S1 and S2 regular. EXTREMITIES: No edema. LABORATORY DATA: Today's SMA-7 is entirely within normal limit. Today's troponin is within normal limit. Today's EKG revealed atrial fibrillation at a rate of 152. ASSESSMENT: 1. Metastatic cancer, most likely suspicious for lung malignancy. 2. Paroxysmal atrial fibrillation. 3. Chronic obstructive lung disease. 4. Right lower lobe pneumonia. 5. Rule out pulmonary embolism. RECOMMENDATIONS: Continue current intravenous heparin infusion in a therapeutic regimen for atrial fibrillation. Continue Lopressor 25 mg twice a day, IV vancomycin at 1 g every 12 hours. I discussed the case with the medical team and I recommended a CT angio of the chest as well as venous Doppler of the lower extremities. Carloz Kapadia MD
[2017-09-28] MEDS ORDERED: Iohexol 350 MG/100 ML VIAL ONE (13:04)
--- NOTE | 2017-09-28 14:09 | CP.PCM.PN ---
<Andrew Merrill - Last Filed: 09/28/17 14:12> Subjective - Date & Time of Evaluation Date of Evaluation: 09/28/17 Time of Evaluation: 07:35 - Subjective Subjective: Medicine progress note for Dr. Graciela Merrill, PGY - 2, IM Patient seen and examined at bedside. Patient had another bout of A-Fib with RVR overnight, was given 10 lopressor and it resolved. Patient was mildly hypotensive this morning with increased heart rate again, but this resolved on it's own as well. Patient is otherwise doing well, but is having trouble sleeping at night. Breathing has improved. Objective - Vital Signs/Intake and Output Vital Signs (last 24 hours): Temp Pulse Resp BP Pulse Ox 97.8 F 77 18 105/63 98 09/28/17 11:55 09/28/17 11:55 09/28/17 11:55 09/28/17 11:55 09/28/17 06:00 Intake and Output: 09/28/17 09/28/17 06:59 18:59 Intake Total 890 Balance 890 - Medications Medications: Current Medications Guaifenesin (Robitussin) 100 mg PO Q6H PRN PRN Reason: Cough Last Admin: 09/28/17 00:27 Dose: 100 mg Vancomycin HCl (Vancomycin 1gm) 1 gm in 250 mls @ 167 mls/hr IVPB Q12H FERNANDO PRN Reason: Protocol Last Admin: 09/28/17 05:17 Dose: 167 mls/hr Heparin Sodium/Sodium Chloride (Heparin 15847 Units/250ml 1/2 Normal Saline) 25 ,000 units in 250 mls @ 10.02 mls/hr IV .Q24H PRN; Protocol; 14.6 UNITS/KG/HR PRN Reason: ADJUST RATE PER PROTOCOL Last Admin: 09/28/17 10:38 Dose: 14.6 units/kg/hr, 10.02 mls/hr Sodium Chloride (Sodium Chloride 0.9%) 1,000 mls @ 200 mls/hr IV .Q5H FERNANDO Last Admin: 09/28/17 12:10 Dose: 200 mls/hr Levalbuterol HCl (Xopenex) 0.63 mg IH Q2 PRN PRN Reason: Shortness of Breath Last Admin: 09/28/17 13:58 Dose: 0.63 mg Metoprolol Tartrate (Lopressor) 25 mg PO BID [facility] Pantoprazole Sodium (Protonix Ec Tab) 40 mg PO 0600 [facility] Last Admin: 09/28/17 05:18 Dose: 40 mg - Labs Labs: 09/27/17 06:00 09/27/17 06:00 APTT 83.1 Seconds (25.1-36.5) H 09/26/17 16:02 - Constitutional Appears: Well - Head Exam Head Exam: ATRAUMATIC, NORMAL INSPECTION, NORMOCEPHALIC - Eye Exam Eye Exam: EOMI, Normal appearance, PERRL Pupil Exam: NORMAL ACCOMODATION, PERRL - ENT Exam ENT Exam: Mucous Membranes Moist, Normal Exam - Neck Exam Neck Exam: Full ROM, Normal Inspection. absent: Lymphadenopathy - Respiratory Exam Respiratory Exam: Clear to Ausculation Bilateral, NORMAL BREATHING PATTERN - Cardiovascular Exam Cardiovascular Exam: REGULAR RHYTHM, +S1, +S2. absent: Murmur - GI/Abdominal Exam GI & Abdominal Exam: Soft, Normal Bowel Sounds. absent: Tenderness - Extremities Exam Extremities Exam: Full ROM, Normal Capillary Refill, Normal Inspection. absent : Joint Swelling, Pedal Edema - Back Exam Back Exam: NORMAL INSPECTION - Neurological Exam Neurological Exam: Alert, Awake, CN II-XII Intact, Normal Gait, Oriented x3 - Psychiatric Exam Psychiatric exam: Normal Affect, Normal Mood - Skin Skin Exam: Dry, Intact, Normal Color, Warm Assessment and Plan - Assessment and Plan (Free Text) Assessment: 76 y o male, PMhx GI ulcer in 2014, presented with 3 wk hx of productive cough with whitish-yellow sputum and shortness of breath. Found to have R lower lobe consolidation, pt being treated for community-acquired pneumonia with IV antibiotics. Found on CT chest to have findings in lungs b/l and vertebral spine suspicious for malignancy. CT abd/pelvis revealed lesion in liver and fracture in lumbar spine possibly acute/pathologic. Further work-up pending. Pt also had rapid response on 09/26/17 for new-onset atrial fibrillation with rapid ventricular response. ID, Pulm, Heme/Onc, Radiation Onc, IR, and Cardio consulted. Decision to be made by pt and family whether pt will undergo biopsy for further work-up of suspicious malignancy. Plan: Post-Obstructive Pneumonia Pt afebrile since admission Pt started on vancomycin and zosyn as per pulm, RLL PNA likely post-obstructive 2/2 underlying malignancy C/w Xopenex 1.25 mg q6h PRN Robitussin prn for cough/chest congestion Sputum cx 09/25: final results neg for growth Blood cx 09/25: NGTD U/a 09/25: trace blood Procalcitonin elevated 8.8 Legionella Ag neg CXR on admission 09/25: extensive alveolar infiltrate in R lower lobe consistent with pneumonia Repeat CXR 09/26: unchanged from prior study Mycoplasma PNA IgG positive - likely patient had a pneumonia while in [place], is probably resolving now, presentation is consistent with walking pneumonia. ID consulted (Dr. Coker), recs appreciated Pulm consulted (Dr. Min), recs appreciated Hypotension with Tachycardia - Held metoprolol for now, will recheck vitals to determine if patient should be on Dig with Cardizem or Metoprolol Diarrhea, likely 2/2 Miralax - D/C miralax - Will check on patient later to determine if C.Diff needs to be sent Cystic Changes likely 2/2 Pulmonary Malignancy with Bony METS CT chest 09/25: extensive mediastinal and hilar lymphadenopathy suspicious for underlying pulmonary malignancy. Lytic lesion at T7 consistent with metastatic disease. Scattered sclerotic lesions. Extensive R lower lobe pneumonia. Ct abd/pelvis 09/25: scattered osteoblastic lesions in multiple vertebral bodies , posterior elements and ribs. Age-indetermine fracture of L4 superior end-plate , may be acute and/or pathologic. Low density lesion in anterolateral liver, metastasis suspected. Bone scan 09/26: findings consistent with bony metastatic disease Ct head 09/27: no evidence of metastatic disease, no acute intracranial findings PSA wnl Pulm consulted, recs appreciated Heme/onc consulted (Dr. Lomeli), recs appreciated Radiation onc consulted (Dr. Iqbal): pending MRI thoracic spine to eval T7 lesion more closely, recommend palliative radiation to R lung mass, will discuss further with heme/onc team Patient will need outpatient biopsy New-onset atrial fibrillation with rapid ventricular response Rapid response called on 09/26/17; pt had additional episode overnight that converted back to normal sinus rhythm after several minutes spontaneously C/w metoprolol 25 mg PO bid C/w heparin drip; patient will need to be placed on Eliquis pending results of CTA PE protocol Continue to monitor, pt asymptomatic and hemodynamically stable at this time Cardio consulted (Dr. Chirinos), recs appreciated DVT/GI ppx: Heparin drip/Protonix Pt seen, examined with, and plan discussed with Dr. Owens, attending <Lenka Owens - Last Filed: 09/29/17 16:10> Objective - Vital Signs/Intake and Output Vital Signs (last 24 hours): Temp Pulse Resp BP Pulse Ox 97.6 F 109 H 18 99/51 L 97 09/29/17 12:00 09/29/17 12:00 09/29/17 12:00 09/29/17 12:00 09/29/17 06:00 Intake and Output: 09/29/17 09/29/17 06:59 18:59 Intake Total 4602 250 Output Total 1000 Balance 3602 250 - Medications Medications: Current Medications Benzonatate (Tessalon Perles) 100 mg PO Q8 [facility] Last Admin: 09/29/17 11:19 Dose: 100 mg Guaifenesin (Robitussin) 100 mg PO Q6H PRN PRN Reason: Cough Last Admin: 09/29/17 06:01 Dose: 100 mg Vancomycin HCl (Vancomycin 1gm) 1 gm in 250 mls @ 167 mls/hr IVPB Q12H FERNANDO PRN Reason: Protocol Last Admin: 09/29/17 03:56 Dose: 167 mls/hr Heparin Sodium/Sodium Chloride (Heparin 38166 Units/250ml 1/2 Normal Saline) 25 ,000 units in 250 mls @ 10.005 mls/hr IV .Q24H PRN; Protocol; 14.23 UNITS/KG/HR PRN Reason: ADJUST RATE PER PROTOCOL Last Admin: 09/29/17 13:15 Dose: 14.23 units/kg/hr, 10.005 mls/hr Piperacillin Sod/Tazobactam Sod (Zosyn 3.375 In Ns 100ml) 100 mls @ 200 mls/hr IVPB Q6 FERNANDO PRN Reason: Protocol Stop: 09/29/17 18:29 Levalbuterol HCl (Xopenex) 0.63 mg IH Q2 PRN PRN Reason: Shortness of Breath Last Admin: 09/29/17 01:40 Dose: 0.63 mg Metoprolol Tartrate (Lopressor) 25 mg PO BID FERNANDO Last Admin: 09/29/17 11:20 Dose: 25 mg Pantoprazole Sodium (Protonix Ec Tab) 40 mg PO 0600 FERNANDO Last Admin: 09/29/17 06:01 Dose: 40 mg - Labs Labs: 09/29/17 07:30 09/29/17 06:30 PT 15.6 SECONDS (9.4-12.5) H 09/29/17 06:30 INR 1.35 (0.93-1.08) H 09/29/17 06:30 APTT 56.8 Seconds (25.1-36.5) H 09/29/17 06:30 Attending/Attestation - Attestation I have personally seen and examined this patient.: Yes I have fully participated in the care of the patient.: Yes I have reviewed all pertinent clinical information, including history, physical exam and plan: Yes Notes (Text): 09/29/17 16:09 Medical record note made by the resident after discussion with my direction and input after the patient was personally seen and examined by me. I have reviewed the chart and agree that the record accurately reflects by personal performance of the history, physical exam, data review, and medical decision-making, in the course for the patient. I have also personally directed the plan of care.
--- NOTE | 2017-09-28 14:39 | CT ---
Date of service: 09/28/2017 PROCEDURE: CT Chest with contrast (Pulmonary Angiogram) HISTORY: r/o pe COMPARISON: None available. TECHNIQUE: Axial computed tomography images were obtained of the chest in the pulmonary arterial phase of enhancement. Coronal and sagittal reformatted images were created and reviewed. Intravenous contrast dose: 100 cc of Omni 350 Radiation dose: Total exam DLP = 419 mGy-cm. This CT exam was performed using one or more of the following dose reduction techniques: Automated exposure control, adjustment of the mA and/or kV according to patient size, and/or use of iterative reconstruction technique. FINDINGS: PULMONARY ARTERIES: Unremarkable. No pulmonary embolism. AORTA: No acute findings. No thoracic aortic aneurysm. LUNGS: There is extensive consolidation in the right lower lobe PLEURAL SPACES: Unremarkable. No effusion or pneumothorax. HEART: Unremarkable. No cardiomegaly. No significant pericardial effusion. LYMPH NODES: Extensive mediastinal and right hilar adenopathy. BONES, CHEST WALL: Lytic lesion at T7 again demonstrated. OTHER FINDINGS: Unremarkable. IMPRESSION: Extensive right hilar and mediastinal adenopathy and right lower lobe consolidation consistent with pulmonary malignancy. Lytic lesion at T7. No evidence of pulmonary embolus
--- NOTE | 2017-09-28 14:42 | CP.PCM.PN ---
Subjective - Date & Time of Evaluation Date of Evaluation: 09/28/17 Time of Evaluation: 14:00 - Subjective Subjective: Infectious Disease Follow Up: September 28, 2017 76 yo male with presentation of SOB and cough productive of sputum. The patient has had symptoms for the past 3 weeks. He was recently in [place] for his son's wedding. Patient states that "food does not taste the same". He has lost [address] scan showing extensive right lower lobe pneumonia but what is more concerning is the extensive mediastinal and hilar adenopathy with lytic lesion at T7. The patient has been started on IV Rocephin and Azithromycin for antibiotic care. No WBC. Procalcitonin of 8.8 at this time. New onset Atrial Fibrillation two nights ago... transferred to telemetry. The family and the patient have been refusing biopsy at this time. Emphasized to the patient and present family members (daughter and son-in-law) importance of the biopsy in determining diagnosis and type of treatment options available for the patient. Patient states that he is not sleeping well in the hospital. Objective - Vital Signs/Intake and Output Vital Signs (last 24 hours): Temp Pulse Resp BP Pulse Ox 97.8 F 77 18 105/63 98 09/28/17 11:55 09/28/17 11:55 09/28/17 11:55 09/28/17 11:55 09/28/17 06:00 Intake and Output: 09/28/17 09/28/17 06:59 18:59 Intake Total 890 Balance 890 - Medications Medications: Current Medications Guaifenesin (Robitussin) 100 mg PO Q6H PRN PRN Reason: Cough Last Admin: 09/28/17 00:27 Dose: 100 mg Vancomycin HCl (Vancomycin 1gm) 1 gm in 250 mls @ 167 mls/hr IVPB Q12H FERNANDO PRN Reason: Protocol Last Admin: 09/28/17 05:17 Dose: 167 mls/hr Heparin Sodium/Sodium Chloride (Heparin 79153 Units/250ml 1/2 Normal Saline) 25 ,000 units in 250 mls @ 10.02 mls/hr IV .Q24H PRN; Protocol; 14.6 UNITS/KG/HR PRN Reason: ADJUST RATE PER PROTOCOL Last Admin: 09/28/17 10:38 Dose: 14.6 units/kg/hr, 10.02 mls/hr Sodium Chloride (Sodium Chloride 0.9%) 1,000 mls @ 200 mls/hr IV .Q5H FERNANDO Last Admin: 09/28/17 12:10 Dose: 200 mls/hr Piperacillin Sod/Tazobactam Sod (Zosyn 4.5 Gm In Ns 100ml) 4.5 gm in 100 mls @ 200 mls/hr IVPB Q6 FERNANDO PRN Reason: Protocol Stop: 09/29/17 00:29 Levalbuterol HCl (Xopenex) 0.63 mg IH Q2 PRN PRN Reason: Shortness of Breath Last Admin: 09/28/17 13:58 Dose: 0.63 mg Metoprolol Tartrate (Lopressor) 25 mg PO BID FERNANDO Pantoprazole Sodium (Protonix Ec Tab) 40 mg PO 0600 [facility] Last Admin: 09/28/17 05:18 Dose: 40 mg - Labs Labs: 09/27/17 06:00 09/27/17 06:00 APTT 83.1 Seconds (25.1-36.5) H 09/26/17 16:02 - Constitutional Appears: No Acute Distress, Cachectic, Chronically Ill - Head Exam Head Exam: ATRAUMATIC, NORMOCEPHALIC - Eye Exam Eye Exam: EOMI, PERRL Pupil Exam: NORMAL ACCOMODATION, PERRL - ENT Exam ENT Exam: Mucous Membranes Moist, Normal External Ear Exam, TM's Normal Bilaterally - Neck Exam Neck Exam: Full ROM, Normal Inspection - Respiratory Exam Respiratory Exam: Decreased Breath Sounds. absent: Rales, Rhonchi, Wheezes - Cardiovascular Exam Cardiovascular Exam: REGULAR RHYTHM, RRR, +S1, +S2 - GI/Abdominal Exam GI & Abdominal Exam: Soft, Normal Bowel Sounds. absent: Distended, Tenderness - Extremities Exam Extremities Exam: Full ROM, Normal Inspection - Neurological Exam Neurological Exam: Alert, Awake, CN II-XII Intact, Oriented x3 - Psychiatric Exam Psychiatric exam: Normal Affect, Normal Mood - Skin Skin Exam: Intact, Normal Color Assessment and Plan - Assessment and Plan (Free Text) Assessment: 76 yo [place] male with large amount of weight loss (19 lbs) and multiple CT lung findings. The patient started on Ceftriaxone and Azithromycin. Must rule out malignancy. Check for Tuberculosis. Check PPD and Quantiferon. Consider surgery or IR evaluation for biopsy of suspicious areas. Supportive care. May need Heme/Onc evaluation as well. Check ESR and C-Reactive Protein. The most likely diagnosis given the current symptoms is malignancy. Given overall picture, Tuberculosis is a much less likely diagnosis. Malignancy is extremely likely. 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 Discussed with family and the patient importance of a biopsy in determining diagnosis and available care/ treatment options. Would consider no more than 7 days of Ceftriaxone and Azithromycin. Thank you for allowing me to participate in the care of the patient, we will follow with you.
--- NOTE | 2017-09-28 16:44 | PN ---
DATE: 09/28/2017 PULMONARY PROGRESS NOTE REFERRING PHYSICIAN: Lenka Owens MD. SUBJECTIVE: He is lying in the bed, head at 45 degrees. Night was unremarkable. Still has some cough and shortness breath. No chest pain. No nausea, vomiting, diarrhea, leg pain, leg swelling. OBJECTIVE: GENERAL: In no acute distress. VITAL SIGNS: Temperature is 98, heart rate is 77, respiratory rate is 18, blood pressure 105/63, pulse ox 28% on nasal cannula. HEENT: Moist mucous membrane. Crowded airway. NECK: Supple. No JVD. LUNGS: Have a scattered rhonchi. There is a few wheezing. HEART: S1 and S2. ABDOMEN: Soft, nontender. No organomegaly. EXTREMITIES: No edema. NEUROLOGICAL: Awake and alert. Follows simple command. MEDICATIONS: He is on IV heparin, metoprolol 25 mg twice a day, Protonix 40 mg daily, Robitussin every 6 hours p.r.n., IV fluid normal saline, vancomycin 1 g IV every 12 hours, Xopenex inhaled every 2 hours p.r.n., Zosyn 4.5 g every 6 hours. LABORATORY DATA: Reviewed, noted troponin less than 0.01. Microbiology: Blood culture, sputum culture, there is no growth. Has a CAT scan of the chest done today, which shows extensive right hilar and mediastinal adenopathy and right lower lobe consolidation consistent with pulmonary malignancy. Lytic lesion at T7. No evidence of pulmonary embolus. Also has a liver lesion on previous studies. IMPRESSION AND PLAN: X-ray findings suggested of metastatic disease with liver involvement and multiple areas of bones involvement. There is also may be component of chronic lung disease. Case discussed with Dr. Lomeli. Spoke to the patient in detail. The patient needs biopsy, we will leave that decision of the site for Interventional Radiology, Dr. Toledo. Liver versus right hilar mass biopsy. Continue bronchodilator. Keep head at 45 degrees. Gastric prophylaxis. Deep venous thrombosis prophylaxis. Thank you and we will follow with you. Lenka García MD
[2017-09-28] MEDS: Heparin 25,000units in 1/2NS 250 ML BAG IV PRN (17:30)
--- NOTE | 2017-09-28 17:37 | CARD ---
APPROVED REPORT Date of service: 09/28/2017 EKG Measurement Heart [id number] <Conclusion> Atrial fibrillation with rapid ventricular response Nonspecific ST and T wave abnormality, probably digitalis effect Abnormal ECG
--- NOTE | 2017-09-28 17:37 | CARD ---
APPROVED REPORT Date of service: 09/28/2017 EKG Measurement Heart [id number] <Conclusion> Sinus rhythm with premature atrial complexes with aberrant conduction Otherwise normal ECG
[2017-09-28] MEDS: Piperacill/Tazo 4.5gm in NS 4.5 GM/100 ML BAG IVPB SCH (19:40)
[2017-09-28] MEDS ORDERED: DiphenhydrAMINE 50 mg/ml Inj IVP ONE (23:34)
[2017-09-29] MEDS: Piperacill/Tazo 4.5gm in NS 4.5 GM/100 ML BAG IVPB SCH ×2 (00:21→12:46)
[2017-09-29] MEDS: Levalbuterol 0.63 MG/3 ML Inhal Soln UD IH PRN ×2 (01:40→22:45)
[2017-09-29] MEDS: Sodium Chloride 0.9% 1,000 ML IV SCH (02:32)
[2017-09-29] MEDS: Vancomycin 1gm in NS 250ml 1 GM/250 ML BAG IVPB SCH ×2 (03:56→19:59)
[2017-09-29] MEDS: Pantoprazole 40 mg EC Tab PO SCH (06:01)
[2017-09-29] MEDS: guaiFENesin 100 mg/5 ml Syrup UD PO PRN (06:01)
[2017-09-29 07:32] LABS: INR 1.35 (0.93-1.08); PARTIAL THROMBOPLASTIN TIME 56.8 Seconds (25.1-36.5); PROTHROMBIN TIME 15.6 SECONDS (9.4-12.5)
[2017-09-29 07:41] LABS: ALB/GLOB RATIO 0.9 (1.1-1.8); ALBUMIN 2.7 g/dL (3.0-4.8); ALT/SGPT 43 U/L (7-56); AST/SGOT 39 U/L (17-59); BLOOD UREA NITROGEN 7 mg/dL (7-21); CALCIUM 7.6 mg/dL (8.4-10.5); GFR AFRICAN-AMERICAN > 60; GFR NON-AFRICAN AMERICAN > 60
[2017-09-29 07:57] LABS: BASO # 0.06 K/mm3 (0.0-2.0); BASO % 0.7 % (0.0-3.0); EOS # 0.3 (0.0-0.7); EOS % 3.8 % (1.5-5.0); GRAN # 5.95 (1.4-6.5); HEMOGLOBIN 12.3 g/dL (14.0-18.0); LYMPH # 1.4 (1.2-3.4); LYMPH % 15.9 % (22.0-35.0); MEAN CELL VOLUME 87.1 fl (80.0-105.0); MEAN CORPUSCULAR HEMOGLOBIN 29.3 pg (25.0-35.0); MEAN CORPUSCULAR HGB CONC 33.6 g/dl (31.0-37.0); MEAN PLATELET VOLUME 9.9 fl (7.0-11.0); MONO % 11.6 % (1.0-6.0); RBC 4.2 10^6/uL (3.5-6.1); RED CELL DISTRIBUTION WIDTH 13.4 % (11.5-14.5); WHITE BLOOD COUNT 8.7 10^3/ul (4.5-11.0)
--- NOTE | 2017-09-29 11:46 | CP.PCM.PN ---
<Devin Stevenson - Last Filed: 09/29/17 11:43> Subjective - Date & Time of Evaluation Date of Evaluation: 09/29/17 Time of Evaluation: 09:20 - Subjective Subjective: Devin Stevenson DO PGY-1, [facility] Progress Note Pt seen and examined at bedside. States his cough is improving, but wants something besides the Robitussin to help with his cough. Pt was in a-fib overnight but converted to normal sinus rhythm on own. Otherwise pt denies any acute complaints, states he slept ok overnight. Objective - Vital Signs/Intake and Output Vital Signs (last 24 hours): Temp Pulse Resp BP Pulse Ox 98.2 F 86 20 134/67 97 09/29/17 06:00 09/29/17 11:20 09/29/17 06:00 09/29/17 11:20 09/29/17 06:00 Intake and Output: 09/29/17 09/29/17 06:59 18:59 Intake Total 4602 Output Total 1000 Balance 3602 - Medications Medications: Current Medications Benzonatate (Tessalon Perles) 100 mg PO Q8 FRENANDO Last Admin: 09/29/17 11:19 Dose: 100 mg Guaifenesin (Robitussin) 100 mg PO Q6H PRN PRN Reason: Cough Last Admin: 09/29/17 06:01 Dose: 100 mg Vancomycin HCl (Vancomycin 1gm) 1 gm in 250 mls @ 167 mls/hr IVPB Q12H FERNANDO PRN Reason: Protocol Last Admin: 09/29/17 03:56 Dose: 167 mls/hr Heparin Sodium/Sodium Chloride (Heparin 24992 Units/250ml 1/2 Normal Saline) 25 ,000 units in 250 mls @ 10.005 mls/hr IV .Q24H PRN; Protocol; 14.23 UNITS/KG/HR PRN Reason: ADJUST RATE PER PROTOCOL Last Admin: 09/28/17 17:30 Dose: 14.23 units/kg/hr, 10.005 mls/hr Piperacillin Sod/Tazobactam Sod (Zosyn 3.375 In Ns 100ml) 100 mls @ 200 mls/hr IVPB Q6 FERNANDO PRN Reason: Protocol Stop: 09/29/17 18:29 Levalbuterol HCl (Xopenex) 0.63 mg IH Q2 PRN PRN Reason: Shortness of Breath Last Admin: 09/29/17 01:40 Dose: 0.63 mg Metoprolol Tartrate (Lopressor) 25 mg PO BID [facility] Last Admin: 09/29/17 11:20 Dose: 25 mg Pantoprazole Sodium (Protonix Ec Tab) 40 mg PO 0600 [facility] Last Admin: 09/29/17 06:01 Dose: 40 mg - Labs Labs: 09/29/17 07:30 09/29/17 06:30 PT 15.6 SECONDS (9.4-12.5) H 09/29/17 06:30 INR 1.35 (0.93-1.08) H 09/29/17 06:30 APTT 56.8 Seconds (25.1-36.5) H 09/29/17 06:30 - Constitutional Appears: Non-toxic, No Acute Distress, Chronically Ill - Head Exam Head Exam: ATRAUMATIC, NORMAL INSPECTION, NORMOCEPHALIC - Eye Exam Eye Exam: EOMI, Normal appearance, PERRL - ENT Exam ENT Exam: Mucous Membranes Moist, Normal Oropharynx - Neck Exam Neck Exam: Full ROM, Normal Inspection - Respiratory Exam Respiratory Exam: NORMAL BREATHING PATTERN Additional comments: Crackles heard in R lower lobe - Cardiovascular Exam Cardiovascular Exam: REGULAR RHYTHM, +S1, +S2 - GI/Abdominal Exam GI & Abdominal Exam: Soft, Normal Bowel Sounds - Extremities Exam Extremities Exam: Full ROM, Normal Capillary Refill, Normal Inspection - Neurological Exam Neurological Exam: Alert, Awake, CN II-XII Intact, Oriented x3 - Psychiatric Exam Psychiatric exam: Flat Affect - Skin Skin Exam: Dry, Intact, Normal Color, Warm Assessment and Plan - Assessment and Plan (Free Text) Assessment: 76 y o male, PMhx GI ulcer in 2014, presented with 3 wk hx of productive cough with whitish-yellow sputum and shortness of breath. Found to have R lower lobe consolidation, pt being treated for community-acquired pneumonia with IV antibiotics. Found on CT chest to have findings in lungs b/l and vertebral spine suspicious for malignancy. CT abd/pelvis revealed lesion in liver and fracture in lumbar spine possibly acute/pathologic. Further work-up pending. Pt also had rapid response on 09/26/17 for new-onset atrial fibrillation with rapid ventricular response. ID, Pulm, Heme/Onc, Radiation Onc, IR, and Cardio consulted. Decision to be made by pt and family whether pt will undergo biopsy for further work-up of suspicious malignancy. Plan: Post-Obstructive Pneumonia Pt afebrile since admission Pt on vancomycin/zosyn as per pulm, RLL PNA likely post-obstructive 2/2 underlying malignancy C/w Xopenex 1.25 mg q6h PRN Robitussin prn for cough/chest congestion; added Tessalon Perles for symptoms Sputum cx 09/25: final results neg for growth Blood cx 09/25: NGTD U/a 09/25: trace blood Procalcitonin elevated 8.8 Legionella Ag neg CXR on admission 09/25: extensive alveolar infiltrate in R lower lobe consistent with pneumonia Repeat CXR 09/26: unchanged from prior study Mycoplasma PNA IgG positive - likely patient had a pneumonia while in [place], is probably resolving now, presentation is consistent with walking pneumonia. ID consulted (Dr. Coker), recs appreciated Pulm consulted (Dr. García), recs appreciated Cystic Changes likely 2/2 Pulmonary Malignancy with Bony METS CT chest 09/25: extensive mediastinal and hilar lymphadenopathy suspicious for underlying pulmonary malignancy. Lytic lesion at T7 consistent with metastatic disease. Scattered sclerotic lesions. Extensive R lower lobe pneumonia. Ct abd/pelvis 09/25: scattered osteoblastic lesions in multiple vertebral bodies , posterior elements and ribs. Age-indetermine fracture of L4 superior end-plate , may be acute and/or pathologic. Low density lesion in anterolateral liver, metastasis suspected. Bone scan 09/26: findings consistent with bony metastatic disease Ct head 09/27: no evidence of metastatic disease, no acute intracranial findings PSA wnl Pulm consulted, recs appreciated Heme/onc consulted (Dr. Lomeli), recs appreciated Radiation onc consulted (Dr. Iqbal): pending MRI thoracic spine to eval T7 lesion more closely, recommend palliative radiation to R lung mass, will discuss further with heme/onc team Patient will need biopsy, pt and family to decide whether biopsy will be performed New-onset atrial fibrillation with rapid ventricular response Rapid response called on 09/26/17; pt had additional episode overnight that converted back to normal sinus rhythm after several minutes spontaneously C/w metoprolol 25 mg PO bid C/w heparin drip CTA 09/28 neg for OH Continue to monitor, pt asymptomatic and hemodynamically stable at this time Cardio consulted (Dr. Chirinos), recs appreciated DVT/GI ppx: Heparin drip/Protonix Pt seen, examined with, and plan discussed with Dr. Owens, attending. Devin Stevenson DO PGY-1, [facility] Pager #[phone] <Lenka Owens - Last Filed: 09/29/17 16:03> Objective - Vital Signs/Intake and Output Vital Signs (last 24 hours): Temp Pulse Resp BP Pulse Ox 97.6 F 109 H 18 99/51 L 97 09/29/17 12:00 09/29/17 12:00 09/29/17 12:00 09/29/17 12:00 09/29/17 06:00 Intake and Output: 09/29/17 09/29/17 06:59 18:59 Intake Total 4602 250 Output Total 1000 Balance 3602 250 - Medications Medications: Current Medications Benzonatate (Tessalon Perles) 100 mg PO Q8 FERNANDO Last Admin: 09/29/17 11:19 Dose: 100 mg Guaifenesin (Robitussin) 100 mg PO Q6H PRN PRN Reason: Cough Last Admin: 09/29/17 06:01 Dose: 100 mg Vancomycin HCl (Vancomycin 1gm) 1 gm in 250 mls @ 167 mls/hr IVPB Q12H FERNANDO PRN Reason: Protocol Last Admin: 09/29/17 03:56 Dose: 167 mls/hr Heparin Sodium/Sodium Chloride (Heparin 35623 Units/250ml 1/2 Normal Saline) 25 ,000 units in 250 mls @ 10.005 mls/hr IV .Q24H PRN; Protocol; 14.23 UNITS/KG/HR PRN Reason: ADJUST RATE PER PROTOCOL Last Admin: 09/29/17 13:15 Dose: 14.23 units/kg/hr, 10.005 mls/hr Piperacillin Sod/Tazobactam Sod (Zosyn 3.375 In Ns 100ml) 100 mls @ 200 mls/hr IVPB Q6 FERNANDO PRN Reason: Protocol Stop: 09/29/17 18:29 Levalbuterol HCl (Xopenex) 0.63 mg IH Q2 PRN PRN Reason: Shortness of Breath Last Admin: 09/29/17 01:40 Dose: 0.63 mg Metoprolol Tartrate (Lopressor) 25 mg PO BID [facility] Last Admin: 09/29/17 11:20 Dose: 25 mg Pantoprazole Sodium (Protonix Ec Tab) 40 mg PO 0600 [facility] Last Admin: 09/29/17 06:01 Dose: 40 mg - Labs Labs: 09/29/17 07:30 09/29/17 06:30 PT 15.6 SECONDS (9.4-12.5) H 09/29/17 06:30 INR 1.35 (0.93-1.08) H 09/29/17 06:30 APTT 56.8 Seconds (25.1-36.5) H 09/29/17 06:30 Attending/Attestation - Attestation I have personally seen and examined this patient.: Yes I have fully participated in the care of the patient.: Yes I have reviewed all pertinent clinical information, including history, physical exam and plan: Yes Notes (Text): 09/29/17 15:56 76 yrs old male with PMHx, of chronic smoking 15pk years quit 5y ago, presented with poor appetite, cough, and SOB. Ct Chest done shows RLL PNA, likely post obstructive, diffuse moderate mediastinal MYA, and numerous extra- pulmonary lesions suggestive of metastatic process.CT abd/pelvis revealed lesion in liver and fracture in lumbar spine possible metastasis. Further work- up pending. Pt also had rapid response on 09/26/17 for new-onset atrial fibrillation with rapid ventricular response. Patient is afebrile, on IV vancomycin and zosyn as per ID.Cultures are negative.ID is following. Patient and family has refused biopsy of liver lesion, discuss with him in detail. AF, rate is controlled with Metoprolol, on anticoagulation with Hepatin drip for now, can be changed to Apixiban if no plan for any biopsy . Decondioning, PT has recommended TCU. Management plan was discussed in detail with patient. Education was provided.
[2017-09-29] MEDS: Piperacillin/Tazobact 3.375 gm 100 ML IVPB SCH ×2 (12:30→18:37)
[2017-09-29] MEDS: Heparin 25,000units in 1/2NS 250 ML BAG IV PRN (13:15)
--- NOTE | 2017-09-29 14:01 | PN ---
DATE: 09/29/2017 FOLLOWUP SUBJECTIVE: The patient denies any chest pain. He is mildly short of breath. He is in paroxysmal atrial fibrillation. PHYSICAL EXAMINATION: VITAL SIGNS: Blood pressure 134/67, heart rate 86, temperature 98.2, respirations 20. HEENT: Normocephalic. CHEST: Bilateral rhonchi. Scattered wheezing. HEART: S1 and S2 regular. EXTREMITIES: Trace leg edema. LABORATORY DATA: Hemoglobin and hematocrit 12.3 and 36.6. White count and platelet count are within normal limits. SMA-7 is within normal limit except for glucose of 114. Chest CT angio was negative for pulmonary embolism. It did reveal extensive right hilar and mediastinal adenopathy and right lower lobe consolidation consistent with pulmonary malignancy, lytic lesion at T7. ASSESSMENT: 1. Metastatic lung cancer. 2. Paroxysmal atrial fibrillation. RECOMMENDATIONS: Continue intravenous heparin at therapeutic regimen for atrial fibrillation. Continue Lopressor 25 mg once a day, IV vancomycin at 1 g every 12 hours and IV Zosyn at 3.375 g intravenously every 6 hours. Carloz Kapadia MD
--- NOTE | 2017-09-29 15:39 | CP.PCM.PN ---
Subjective - Date & Time of Evaluation Date of Evaluation: 09/29/17 Time of Evaluation: 14:15 - Subjective Subjective: Infectious Disease Follow Up: September 29, 2017 76 yo male with presentation of SOB and cough productive of sputum. The patient has had symptoms for the past 3 weeks. He was recently in [place] for his son's wedding. Patient states that "food does not taste the same". He has lost [address] scan showing extensive right lower lobe pneumonia but what is more concerning is the extensive mediastinal and hilar adenopathy with lytic lesion at T7. The patient has been started on IV Rocephin and Azithromycin for antibiotic care. No WBC. Procalcitonin of 8.8 at this time. New onset Atrial Fibrillation two nights ago... transferred to telemetry. The family and the patient have been refusing biopsy at this time. Emphasized to the patient and present family members (daughter and son-in-law) importance of the biopsy in determining diagnosis and type of treatment options available for the patient. Patient states that he is not sleeping well in the hospital. Noted the patient with Atrial fibrillation last night. Objective - Vital Signs/Intake and Output Vital Signs (last 24 hours): Temp Pulse Resp BP Pulse Ox 97.6 F 109 H 18 99/51 L 97 09/29/17 12:00 09/29/17 12:00 09/29/17 12:00 09/29/17 12:00 09/29/17 06:00 Intake and Output: 09/29/17 09/29/17 06:59 18:59 Intake Total 4602 250 Output Total 1000 Balance 3602 250 - Medications Medications: Current Medications Benzonatate (Tessalon Perles) 100 mg PO Q8 FERNANDO Last Admin: 09/29/17 11:19 Dose: 100 mg Guaifenesin (Robitussin) 100 mg PO Q6H PRN PRN Reason: Cough Last Admin: 09/29/17 06:01 Dose: 100 mg Vancomycin HCl (Vancomycin 1gm) 1 gm in 250 mls @ 167 mls/hr IVPB Q12H FERNANDO PRN Reason: Protocol Last Admin: 09/29/17 03:56 Dose: 167 mls/hr Heparin Sodium/Sodium Chloride (Heparin 27964 Units/250ml 1/2 Normal Saline) 25 ,000 units in 250 mls @ 10.005 mls/hr IV .Q24H PRN; Protocol; 14.23 UNITS/KG/HR PRN Reason: ADJUST RATE PER PROTOCOL Last Admin: 09/29/17 13:15 Dose: 14.23 units/kg/hr, 10.005 mls/hr Piperacillin Sod/Tazobactam Sod (Zosyn 3.375 In Ns 100ml) 100 mls @ 200 mls/hr IVPB Q6 FERNANDO PRN Reason: Protocol Stop: 09/29/17 18:29 Levalbuterol HCl (Xopenex) 0.63 mg IH Q2 PRN PRN Reason: Shortness of Breath Last Admin: 09/29/17 01:40 Dose: 0.63 mg Metoprolol Tartrate (Lopressor) 25 mg PO BID [facility] Last Admin: 09/29/17 11:20 Dose: 25 mg Pantoprazole Sodium (Protonix Ec Tab) 40 mg PO 0600 [facility] Last Admin: 09/29/17 06:01 Dose: 40 mg - Labs Labs: 09/29/17 07:30 09/29/17 06:30 PT 15.6 SECONDS (9.4-12.5) H 09/29/17 06:30 INR 1.35 (0.93-1.08) H 09/29/17 06:30 APTT 56.8 Seconds (25.1-36.5) H 09/29/17 06:30 - Constitutional Appears: No Acute Distress, Cachectic, Chronically Ill - Head Exam Head Exam: ATRAUMATIC, NORMOCEPHALIC - Eye Exam Eye Exam: EOMI, PERRL Pupil Exam: NORMAL ACCOMODATION, PERRL - ENT Exam ENT Exam: Mucous Membranes Moist, Normal External Ear Exam, TM's Normal Bilaterally - Neck Exam Neck Exam: Full ROM, Normal Inspection - Respiratory Exam Respiratory Exam: Decreased Breath Sounds, NORMAL BREATHING PATTERN. absent: Rales, Rhonchi, Wheezes - Cardiovascular Exam Cardiovascular Exam: REGULAR RHYTHM, RRR, +S1, +S2 - GI/Abdominal Exam GI & Abdominal Exam: Soft, Normal Bowel Sounds. absent: Distended, Tenderness - Extremities Exam Extremities Exam: Full ROM, Normal Inspection - Neurological Exam Neurological Exam: Alert, Awake, CN II-XII Intact, Oriented x3 - Psychiatric Exam Psychiatric exam: Normal Affect, Normal Mood - Skin Skin Exam: Intact, Normal Color Assessment and Plan - Assessment and Plan (Free Text) Assessment: 76 yo male with large amount of weight loss (19 lbs) and multiple CT lung findings. The patient started on Ceftriaxone and Azithromycin. Must rule out malignancy. Check for Tuberculosis. Check PPD and Quantiferon. Consider surgery or IR evaluation for biopsy of suspicious areas. Supportive care. May need Heme/Onc evaluation as well. Check ESR and C-Reactive Protein. The most likely diagnosis given the current symptoms is malignancy. Given overall picture, Tuberculosis is a much less likely diagnosis. Malignancy is extremely likely. 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 Discussed with family and the patient importance of a biopsy in determining diagnosis and available care/ treatment options. Would consider no more than 7 days of Ceftriaxone and Azithromycin. Thank you for allowing me to participate in the care of the patient, we will follow with you.
--- NOTE | 2017-09-29 16:51 | PN ---
DATE: 09/29/2017 PULMONARY PROGRESS NOTE REFERRING PHYSICIAN: Lenka Owens MD. SUBJECTIVE: The patient is lying in the bed, sleepy, arousable. Has some cough. No hemoptysis, no hematemesis, no hematuria, no diarrhea. No leg pain or leg swelling. PHYSICAL EXAMINATION: GENERAL: In no acute distress. VITAL SIGNS: Temperature is 98, heart rate is 109, respiratory rate is 20, blood pressure 99/51, pulse ox 97% on nasal cannula. HEENT: Moist mucous membrane. No ulcer or thrush noted. NECK: Supple. No JVD. LUNGS: Have scattered rhonchi and crackles. HEART: S1 and S2. ABDOMEN: Soft, nontender. No organomegaly. EXTREMITIES: No edema. NEUROLOGIC: Sleepy, arousable. Follows simple command. MEDICATIONS: He is on heparin weight-based protocol, metoprolol tartrate 25 mg twice day, Protonix 40 mg daily, guaifenesin 100 mg every 6 hours p.r.n., Tessalon Perles every 8 hours, vancomycin 1 g IV every 12 hours, Xopenex inhaled every 2 hours p.r.n., and Zosyn 3.375 g IV every 6 hours. LABORATORY DATA: Shows hemoglobin 12.3, hematocrit 36.6, WBC 8.7, platelet count is 213. INR 1.35, PTT is 57. Sodium 135, potassium 5, chloride 105, bicarbonate 23, BUN 7, creatinine 0.8, glucose 114, calcium 7.6. AST 39, ALT 43, alkaline phosphatase is 104. Albumin is 2.7. Microbiology: Blood culture and sputum culture, there is no growth. IMPRESSION AND PLAN: X-ray findings suggested metastatic disease, probably primary is lung with liver involvement; also has a bone scan done which suggested bony metastatic disease. There is component of chronic lung disease. Pulmonary point of view, doing okay. Continue bronchodilator. Keep head at 45 degrees. Has been on antibiotics. Awaiting for biopsy, on Sunday. Gastric prophylaxis. Paroxysmal atrial fibrillation, on anticoagulation. Thank you and we will follow with you. Lenka García MD [facility] # [id number]
[2017-09-30] MEDS: guaiFENesin 100 mg/5 ml Syrup UD PO PRN (02:23)
[2017-09-30] MEDS: Levalbuterol 0.63 MG/3 ML Inhal Soln UD IH PRN ×3 (04:05→22:55)
[2017-09-30] MEDS: Vancomycin 1gm in NS 250ml 1 GM/250 ML BAG IVPB SCH ×2 (05:16→17:36)
[2017-09-30] MEDS: Pantoprazole 40 mg EC Tab PO SCH (05:17)
[2017-09-30 07:43] LABS: BASO # 0.04 K/mm3 (0.0-2.0); BASO % 0.4 % (0.0-3.0); EOS # 0.3 (0.0-0.7); EOS % 3.7 % (1.5-5.0); GRAN # 5.59 (1.4-6.5); GRAN % 61.9 % (50.0-68.0); HEMOGLOBIN 12.6 g/dL (14.0-18.0); LYMPH # 1.7 (1.2-3.4); LYMPH % 19.2 % (22.0-35.0); MEAN CELL VOLUME 85.9 fl (80.0-105.0); MEAN CORPUSCULAR HEMOGLOBIN 29.2 pg (25.0-35.0); MONO # 1.3 (0.1-0.6); MONO % 14.8 % (1.0-6.0); RBC 4.32 10^6/uL (3.5-6.1); RED CELL DISTRIBUTION WIDTH 13.4 % (11.5-14.5)
[2017-09-30 07:45] LABS: INR 1.43 (0.93-1.08); PARTIAL THROMBOPLASTIN TIME 58.9 Seconds (25.1-36.5); PROTHROMBIN TIME 16.6 SECONDS (9.4-12.5)
[2017-09-30 07:53] LABS: ALB/GLOB RATIO 0.9 (1.1-1.8); ALBUMIN 3.1 g/dL (3.0-4.8); ALT/SGPT 40 U/L (7-56); AST/SGOT 42 U/L (17-59); BLOOD UREA NITROGEN 5 mg/dL (7-21); CALCIUM 7.6 mg/dL (8.4-10.5); GFR AFRICAN-AMERICAN > 60; GFR NON-AFRICAN AMERICAN > 60
[2017-09-30] MEDS ORDERED: Piperacillin/Tazobact 3.375 gm 100 ML IVPB STA (08:46)
--- NOTE | 2017-09-30 10:18 | CP.PCM.PN ---
<Marino Lloyd - Last Filed: 09/30/17 10:13> Subjective - Date & Time of Evaluation Date of Evaluation: 09/30/17 Time of Evaluation: 07:00 - Subjective Subjective: Patient seen and examined at bedside. States he has problems breathing from time to time which is not related to anxiety and relieved with breathing treatments. Currently denies chest pain, shortness of breath, abdominal pain, nausea, vomiting, diarrhea, fevers, chills. Objective - Vital Signs/Intake and Output Vital Signs (last 24 hours): Temp Pulse Resp BP Pulse Ox 98.2 F 75 20 110/58 L 99 09/30/17 06:00 09/30/17 06:00 09/30/17 06:00 09/30/17 06:00 09/30/17 06:00 Intake and Output: 09/30/17 09/30/17 06:59 18:59 Intake Total 800 Output Total 500 Balance 300 - Medications Medications: Current Medications Benzonatate (Tessalon Perles) 100 mg PO Q8 [facility] Last Admin: 09/30/17 05:17 Dose: 100 mg Guaifenesin/Codeine Phosphate (Robitussin W/Codeine) 5 ml PO Q4H PRN PRN Reason: Cough and congestion Vancomycin HCl (Vancomycin 1gm) 1 gm in 250 mls @ 167 mls/hr IVPB Q12H [facility] PRN Reason: Protocol Last Admin: 09/30/17 05:16 Dose: 167 mls/hr Heparin Sodium/Sodium Chloride (Heparin 56802 Units/250ml 1/2 Normal Saline) 25 ,000 units in 250 mls @ 10.005 mls/hr IV .Q24H PRN; Protocol; 14.23 UNITS/KG/HR PRN Reason: ADJUST RATE PER PROTOCOL Last Admin: 09/29/17 13:15 Dose: 14.23 units/kg/hr, 10.005 mls/hr Levalbuterol HCl (Xopenex) 0.63 mg IH Q2 PRN PRN Reason: Shortness of Breath Last Admin: 09/30/17 04:05 Dose: 0.63 mg Metoprolol Tartrate (Lopressor) 25 mg PO BID [facility] Last Admin: 09/30/17 09:27 Dose: 25 mg Pantoprazole Sodium (Protonix Ec Tab) 40 mg PO 0600 [facility] Last Admin: 09/30/17 05:17 Dose: 40 mg - Labs Labs: 09/30/17 07:00 09/30/17 07:00 PT 16.6 SECONDS (9.4-12.5) H 09/30/17 07:00 INR 1.43 (0.93-1.08) H 09/30/17 07:00 APTT 58.9 Seconds (25.1-36.5) H 09/30/17 07:00 - Head Exam Head Exam: ATRAUMATIC, NORMAL INSPECTION, NORMOCEPHALIC - Eye Exam Eye Exam: EOMI, Normal appearance - ENT Exam ENT Exam: Mucous Membranes Moist - Respiratory Exam Respiratory Exam: Rhonchi (diffuse in upper and lower lobes). absent: Clear to Ausculation Bilateral, Respiratory Distress, NORMAL BREATHING PATTERN - Cardiovascular Exam Cardiovascular Exam: REGULAR RHYTHM (not currently in atrial fibrillation), +S1 , +S2 - GI/Abdominal Exam GI & Abdominal Exam: Soft, Normal Bowel Sounds. absent: Tenderness - Extremities Exam Extremities Exam: Normal Inspection - Back Exam Back Exam: NORMAL INSPECTION - Neurological Exam Neurological Exam: Alert, Awake, Oriented x3 - Psychiatric Exam Psychiatric exam: Normal Affect, Normal Mood - Skin Skin Exam: Intact, Normal Color, Warm Assessment and Plan - Assessment and Plan (Free Text) Assessment: 76 y o male, PMhx GI ulcer in 2014, presented with 3 wk hx of productive cough with whitish-yellow sputum and shortness of breath found to primary lung cancer with mets to liver and bone with superimposed post obstructive pneumonia currently awaiting to undergo biopsy. Plan: Post-Obstructive Pneumonia Pt afebrile since admission Pt on vancomycin/zosyn as per pulm, RLL PNA likely post-obstructive 2/2 underlying malignancy C/w Xopenex 1.25 mg q6h PRN Robitussin with codeine prn for cough/chest congestion; continue with Tessalon Perles as needed Sputum cx 09/25: moderate gram pos cocci in clusters, moderate pmn wbcs, few gram variable rods Blood cx 09/25: negative U/a 09/25: trace blood Procalcitonin elevated 8.8 Legionella Ag neg CXR on admission 09/25: extensive alveolar infiltrate in R lower lobe consistent with pneumonia Repeat CXR 09/26: unchanged from prior study Mycoplasma PNA IgG positive - likely patient had a pneumonia in past. ID consulted (Dr. Coker), recs appreciated Pulm consulted (Dr. García), recs appreciated Cystic Changes likely 2/2 Pulmonary Malignancy with Bony METS CT chest 09/25: extensive mediastinal and hilar lymphadenopathy suspicious for underlying pulmonary malignancy. Lytic lesion at T7 consistent with metastatic disease. Scattered sclerotic lesions. Extensive R lower lobe pneumonia. Ct abd/pelvis 09/25: scattered osteoblastic lesions in multiple vertebral bodies , posterior elements and ribs. Age-indeterminate fracture of L4 superior end- plate, may be acute and/or pathologic. Low density lesion in anterolateral liver , metastasis suspected. Bone scan 09/26: findings consistent with bony metastatic disease Ct head 09/27: no evidence of metastatic disease, no acute intracranial findings PSA wnl Pulm consulted, recs appreciated Heme/onc consulted (Dr. Lomeli), recs appreciated Radiation onc consulted (Dr. Iqbal): pending MRI thoracic spine to eval T7 lesion more closely, recommend palliative radiation to R lung mass, will discuss further with heme/onc team Patient will need biopsy which is to be done 10/01 with IR now that patient is in agreement New-onset atrial fibrillation with rapid ventricular response Rapid response called on 09/26/17; pt had additional episode overnight that converted back to normal sinus rhythm after several minutes spontaneously C/w metoprolol 25 mg PO bid C/w heparin drip, will hold in morning for biopsy with IR, and eventually convert to eliquis CTA 09/28 neg for AK Continue to monitor, pt asymptomatic and hemodynamically stable at this time Cardio consulted (Dr. Chirinos), recs appreciated DVT/GI ppx: Heparin drip/Protonix Disposition plan: Patient is to be evaluated for TCU. After biopsy by IR. Patient can be started on eliquis for new onset atrial fibrillation and transferred to TCU. While in TCU antibiotics can be converted to PO Augmentin. Pt seen, examined with, and plan discussed with Dr. Owens, attending. Marino Lloyd PGY1 <Lenka Owens - Last Filed: 09/30/17 11:01> Objective - Vital Signs/Intake and Output Vital Signs (last 24 hours): Temp Pulse Resp BP Pulse Ox 98.2 F 75 20 110/58 L 99 09/30/17 06:00 09/30/17 06:00 09/30/17 06:00 09/30/17 06:00 09/30/17 06:00 Intake and Output: 09/30/17 09/30/17 06:59 18:59 Intake Total 800 Output Total 500 Balance 300 - Medications Medications: Current Medications Benzonatate (Tessalon Perles) 100 mg PO Q8 [facility] Last Admin: 09/30/17 05:17 Dose: 100 mg Guaifenesin/Codeine Phosphate (Robitussin W/Codeine) 5 ml PO Q4H PRN PRN Reason: Cough and congestion Vancomycin HCl (Vancomycin 1gm) 1 gm in 250 mls @ 167 mls/hr IVPB Q12H [facility] PRN Reason: Protocol Last Admin: 09/30/17 05:16 Dose: 167 mls/hr Heparin Sodium/Sodium Chloride (Heparin 15508 Units/250ml 1/2 Normal Saline) 25 ,000 units in 250 mls @ 10.005 mls/hr IV .Q24H PRN; Protocol; 14.23 UNITS/KG/HR PRN Reason: ADJUST RATE PER PROTOCOL Last Admin: 09/29/17 13:15 Dose: 14.23 units/kg/hr, 10.005 mls/hr Levalbuterol HCl (Xopenex) 0.63 mg IH Q2 PRN PRN Reason: Shortness of Breath Last Admin: 09/30/17 04:05 Dose: 0.63 mg Metoprolol Tartrate (Lopressor) 25 mg PO BID [facility] Last Admin: 09/30/17 09:27 Dose: 25 mg Pantoprazole Sodium (Protonix Ec Tab) 40 mg PO 0600 [facility] Last Admin: 09/30/17 05:17 Dose: 40 mg - Labs Labs: 09/30/17 07:00 09/30/17 07:00 PT 16.6 SECONDS (9.4-12.5) H 09/30/17 07:00 INR 1.43 (0.93-1.08) H 09/30/17 07:00 APTT 58.9 Seconds (25.1-36.5) H 09/30/17 07:00 Attending/Attestation - Attestation I have personally seen and examined this patient.: Yes I have fully participated in the care of the patient.: Yes I have reviewed all pertinent clinical information, including history, physical exam and plan: Yes Notes (Text): 09/30/17 10:59 76 yrs old male with PMHx, of chronic smoking 15pk years quit 5y ago, presented with poor appetite, cough, and SOB. Ct Chest done shows RLL PNA, likely post obstructive, diffuse moderate mediastinal MYA, and numerous extra- pulmonary lesions suggestive of metastatic process.CT abd/pelvis revealed lesion in liver and fracture in lumbar spine possible metastasis. Further work- up pending. Pt also had rapid response on 09/26/17 for new-onset atrial fibrillation with rapid ventricular response. Patient is afebrile, on IV vancomycin and zosyn as per ID.Cultures are negative.ID is following. Patient and family refused biopsy of liver lesion earlier, but now is agreeable , will hold IV heparin in the morning and will request IR for liver biopsy. AF, rate is controlled with Metoprolol, on anticoagulation with heparin drip for now, Decondioning, PT has recommended TCU. Management plan was discussed in detail with patient. Education was provided.
--- NOTE | 2017-09-30 11:37 | CP.PCM.PN ---
Subjective - Date & Time of Evaluation Date of Evaluation: 09/30/17 Time of Evaluation: 10:40 - Subjective Subjective: Covering Dr. Chirinos Awake, no distress,denies shortness of breath Reason for consultation and follow up: Cardiac evaluation for new onset atrial fibrillation,history of smoking and GI ulcer 2014. Seen and examined by me and Dr. Childs Objective - Vital Signs/Intake and Output Vital Signs (last 24 hours): Temp Pulse Resp BP Pulse Ox 98.2 F 75 20 110/58 L 99 09/30/17 06:00 09/30/17 06:00 09/30/17 06:00 09/30/17 06:00 09/30/17 06:00 Intake and Output: 09/30/17 09/30/17 06:59 18:59 Intake Total 800 Output Total 500 Balance 300 - Medications Medications: Current Medications Benzonatate (Tessalon Perles) 100 mg PO Q8 [facility] Last Admin: 09/30/17 05:17 Dose: 100 mg Guaifenesin/Codeine Phosphate (Robitussin W/Codeine) 5 ml PO Q4H PRN PRN Reason: Cough and congestion Vancomycin HCl (Vancomycin 1gm) 1 gm in 250 mls @ 167 mls/hr IVPB Q12H [facility] PRN Reason: Protocol Last Admin: 09/30/17 05:16 Dose: 167 mls/hr Heparin Sodium/Sodium Chloride (Heparin 97284 Units/250ml 1/2 Normal Saline) 25 ,000 units in 250 mls @ 10.005 mls/hr IV .Q24H PRN; Protocol; 14.23 UNITS/KG/HR PRN Reason: ADJUST RATE PER PROTOCOL Last Admin: 09/29/17 13:15 Dose: 14.23 units/kg/hr, 10.005 mls/hr Levalbuterol HCl (Xopenex) 0.63 mg IH Q2 PRN PRN Reason: Shortness of Breath Last Admin: 09/30/17 04:05 Dose: 0.63 mg Metoprolol Tartrate (Lopressor) 25 mg PO BID [facility] Last Admin: 09/30/17 09:27 Dose: 25 mg Pantoprazole Sodium (Protonix Ec Tab) 40 mg PO 0600 [facility] Last Admin: 09/30/17 05:17 Dose: 40 mg - Labs Labs: 09/30/17 07:00 09/30/17 07:00 PT 16.6 SECONDS (9.4-12.5) H 09/30/17 07:00 INR 1.43 (0.93-1.08) H 09/30/17 07:00 APTT 58.9 Seconds (25.1-36.5) H 09/30/17 07:00 - Respiratory Exam Respiratory Exam: Decreased Breath Sounds, Rhonchi Additional comments: mild shortness of breath - Cardiovascular Exam Cardiovascular Exam: REGULAR RHYTHM, +S1, +S2 Additional comments: telemetry NSR - GI/Abdominal Exam GI & Abdominal Exam: Soft, Normal Bowel Sounds - Extremities Exam Extremities Exam: Normal Capillary Refill - Neurological Exam Neurological Exam: Alert, Awake, Oriented x3 - Psychiatric Exam Psychiatric exam: Normal Affect - Skin Skin Exam: Dry, Warm Assessment and Plan - Assessment and Plan (Free Text) Assessment: A 76 year old who came in to the ER due to shortness of breath and productive cough for 3 weeks. History of smoking and gastrointestinal ulcer in 2014. Denies any other medical problems. Atrial fibrillation converted to normal sinus rhythm. On betablocker.Pulmonary work up in progress suggestive of lung cancer. Plan: Heart rate remained on NSR- telemetry 90's Stable blood pressure Continue Lopressor Mild shortness of breath, on nasal cannula 2L/min Pulmonary work up in progress On IV antibiotics per ID Patient and family refusing lung biopsy On respiratory/droplet isolation Continue current treatment Continue current medications Plan and treatment discussed with Dr. Naz Chirinos will continue care on Sunday
[2017-09-30] MEDS: guaiFENesin-Codeine 100-10mg/5ml Syrup (5 ml) UD PO PRN ×2 (11:53→23:39)
--- NOTE | 2017-09-30 14:20 | PN ---
DATE: 09/30/2017 PULMONARY PROGRESS NOTE REFERRING PHYSICIAN: Lenka Owens MD SUBJECTIVE: Sitting side of the bed. Night was unremarkable. Feels better, still has a mild cough. No sputum production. No hemoptysis, no emesis, no hematuria, no diarrhea. No leg pain or leg swelling. OBJECTIVE: GENERAL: In acute distress. VITAL SIGNS: Temperature is 98, heart rate is 75, respiratory rate is 20, blood pressure 90/58, pulse ox 99% on 2 L nasal cannula. HEENT: Moist mucous membranes. No ulcer or thrush noted. NECK: Supple. No JVD. LUNGS: Few crackles on the right base. HEART: S1 and S2. ABDOMEN: Soft, nontender. No organomegaly. EXTREMITIES: No edema. NEUROLOGIC: Awake, alert, and follows simple command. MEDICATIONS: He is on IV heparin weight-based protocol, will be on hold tomorrow. Metoprolol tartrate 25 mg twice a day, Protonix 40 mg daily, guaifenesin with codeine every 4 hours p.r.n., Tessalon Perles 100 mg every 8 hours, vancomycin 1 g IV every 12 hours, Xopenex inhaled every 12 hours p.r.n. LABORATORY DATA: Shows hemoglobin 12.6, hematocrit 37.1, WBC 9, and platelet count is 247. INR 1.43. PTT is 59. Sodium 135, potassium 3.8, chloride 106, bicarbonate 22. BUN 5, creatinine 0.7. Glucose 109. Calcium is 7.6. AST 42, ALT 40, alk phos is 112. Albumin is 3.1. Microbiology: Blood culture and sputum culture are negative. IMPRESSION AND PLAN: Hilar mass, pulmonary infiltrate, lymph node enlargement, MRI and bone scan suggestive of metastatic disease, component of chronic lung disease, has a cough. Pulmonary point of view, doing okay. Continue bronchodilator. Keep head at 45 degrees. Cough suppressor. Also had a paroxysmal atrial fibrillation, on anticoagulation. Scheduled for biopsy tomorrow. Thank you and we will follow with you. Lenka García MD
--- NOTE | 2017-09-30 17:20 | CP.PCM.PN ---
Subjective - Date & Time of Evaluation Date of Evaluation: 09/30/17 Time of Evaluation: 17:00 - Subjective Subjective: Infectious Disease Follow Up: September 30, 2017 76 yo male with presentation of SOB and cough productive of sputum. The patient has had symptoms for the past 3 weeks. He was recently in [place] for his son's wedding. Patient states that "food does not taste the same". He has lost [address] scan showing extensive right lower lobe pneumonia but what is more concerning is the extensive mediastinal and hilar adenopathy with lytic lesion at T7. The patient has been started on IV Rocephin and Azithromycin for antibiotic care. No WBC. Procalcitonin of 8.8 at this time. New onset Atrial Fibrillation two nights ago... transferred to telemetry. The family and the patient have been refusing biopsy at this time. Emphasized to the patient and present family members (daughter and son-in-law) importance of the biopsy in determining diagnosis and type of treatment options available for the patient. Patient states that he is not sleeping well in the hospital. Noted the patient with Atrial fibrillation last night. Objective - Vital Signs/Intake and Output Vital Signs (last 24 hours): Temp Pulse Resp BP Pulse Ox 98.9 F 135 H 20 90/58 L 99 09/30/17 12:00 09/30/17 12:28 09/30/17 12:00 09/30/17 12:00 09/30/17 06:00 Intake and Output: 09/30/17 09/30/17 06:59 18:59 Intake Total 800 Output Total 500 Balance 300 - Medications Medications: Current Medications Benzonatate (Tessalon Perles) 100 mg PO Q8 [facility] Last Admin: 09/30/17 14:04 Dose: 100 mg Guaifenesin/Codeine Phosphate (Robitussin W/Codeine) 5 ml PO Q4H PRN PRN Reason: Cough and congestion Last Admin: 09/30/17 11:53 Dose: 5 ml Vancomycin HCl (Vancomycin 1gm) 1 gm in 250 mls @ 167 mls/hr IVPB Q12H [facility] PRN Reason: Protocol Last Admin: 09/30/17 05:16 Dose: 167 mls/hr Heparin Sodium/Sodium Chloride (Heparin 21696 Units/250ml 1/2 Normal Saline) 25 ,000 units in 250 mls @ 10.005 mls/hr IV .Q24H PRN; Protocol; 14.23 UNITS/KG/HR PRN Reason: ADJUST RATE PER PROTOCOL Last Admin: 09/29/17 13:15 Dose: 14.23 units/kg/hr, 10.005 mls/hr Levalbuterol HCl (Xopenex) 0.63 mg IH Q2 PRN PRN Reason: Shortness of Breath Last Admin: 09/30/17 11:38 Dose: 0.63 mg Metoprolol Tartrate (Lopressor) 25 mg PO BID [facility] Last Admin: 09/30/17 09:27 Dose: 25 mg Pantoprazole Sodium (Protonix Ec Tab) 40 mg PO 0600 [facility] Last Admin: 09/30/17 05:17 Dose: 40 mg - Labs Labs: 09/30/17 07:00 09/30/17 07:00 PT 16.6 SECONDS (9.4-12.5) H 09/30/17 07:00 INR 1.43 (0.93-1.08) H 09/30/17 07:00 APTT 58.9 Seconds (25.1-36.5) H 09/30/17 07:00 - Constitutional Appears: Non-toxic, No Acute Distress, Chronically Ill - Head Exam Head Exam: ATRAUMATIC, NORMOCEPHALIC - Eye Exam Eye Exam: EOMI, PERRL Pupil Exam: NORMAL ACCOMODATION, PERRL - ENT Exam ENT Exam: Mucous Membranes Moist, Normal External Ear Exam, TM's Normal Bilaterally - Neck Exam Neck Exam: Full ROM, Normal Inspection - Respiratory Exam Respiratory Exam: Clear to Ausculation Bilateral, NORMAL BREATHING PATTERN. absent: Rales, Rhonchi, Wheezes - Cardiovascular Exam Cardiovascular Exam: REGULAR RHYTHM, RRR, +S1, +S2 - GI/Abdominal Exam GI & Abdominal Exam: Soft, Normal Bowel Sounds. absent: Distended, Tenderness - Extremities Exam Extremities Exam: Full ROM, Normal Inspection - Neurological Exam Neurological Exam: Alert, Awake, CN II-XII Intact, Oriented x3 - Psychiatric Exam Psychiatric exam: Normal Affect, Normal Mood - Skin Skin Exam: Intact, Normal Color Assessment and Plan - Assessment and Plan (Free Text) Assessment: 76 yo male with large amount of weight loss (19 lbs) and multiple CT lung findings. The patient started on Ceftriaxone and Azithromycin. Must rule out malignancy. Check for Tuberculosis. Check PPD and Quantiferon. Consider surgery or IR evaluation for biopsy of suspicious areas. Supportive care. May need Heme/Onc evaluation as well. Check ESR and C-Reactive Protein. The most likely diagnosis given the current symptoms is malignancy. Given overall picture, Tuberculosis is a much less likely diagnosis. Malignancy is extremely likely. Overall tank terminal gauger prognosis is very poor. Discussed with family and the patient importance of a biopsy in determining diagnosis and available care/ treatment options. Would consider no more than 7 days of Ceftriaxone and Azithromycin. Patient is awaiting biopsy and TCU evaluation. Thank you for allowing me to participate in the care of the patient, we will follow with you.
--- NOTE | 2017-09-30 19:17 | PN ---
DATE: 09/30/2017 ONCOLOGY PROGRESS NOTE LOCATION: The patient is in room 263, bed 1. SUBJECTIVE: The patient did examine, sitting at the side of the bed. Night was unremarkable. He feels a little bit better, but less cough. No sputum production, no hemoptysis, no hematemesis, no hematuria or diarrhea, no abdominal pain. The patient is concerned when he is going to get biopsy, which I told him will be tomorrow. Appetite appears to be slightly improved. OBJECTIVE: GENERAL: The patient is in no acute distress. VITAL SIGNS: Stable. T-max is 98.4, heart rate is 75, respirations 20, blood pressure is 90/58, and pulse ox is 98% on 2 L of nasal cannula. HEENT: Head is normocephalic, atraumatic. Conjunctivae pale. Sclerae are anicteric. Pupils are equally reactive to light and accommodation. Examination of the oropharynx reveals no oropharyngeal lesion. No ulcer or thrush is noted. NECK: Supple. There is no adenopathy. No jugular venous distention noted. LUNGS: Reveals a few crackles in the right base posteriorly. HEART: Reveals PMI to be in the fifth intercostal space, inside the midclavicular line. S1 and S2 are normal. No gallop or murmur is heard. ABDOMEN: Soft, nontender. Liver and spleen are not palpable. EXTREMITIES: Reveals no cyanosis, clubbing, or edema. NEUROLOGIC: Reveals the patient to be awake, alert, and oriented. No acute distress. AND RECTAL: Deferred. SKIN: Turgor is normal. No skin lesions are noted. MEDICATIONS: The patient is on heparin on weight-based protocol, which will be held tomorrow in preparation for the biopsy; metoprolol 25 mg b.i.d.; Protonix 40 mg daily; guaifenesin with codeine every 4 hours as needed; Tessalon Perles 100 mg every 8 hours. He is on vancomycin 1 g every 12 hours and Xopenex inhaled every 12 hours. LABORATORY DATA: Reveals hemoglobin 12.6, hematocrit 37.1, white count of 9, and platelet count of 247,000. INR is 1.43, PTT is 59. Sodium is 135, K is 3.8, chloride 106, bicarbonate 22. BUN of 5, creatinine 0.7. Glucose of 109. Calcium of 7.6. Alkaline phosphatase is 112, albumin is 3.1. Blood cultures and sputum cultures are negative. ASSESSMENT NOTES AND PLAN: The patient has clinically stage IV metastatic lung carcinoma, primary histology to be determined. The patient has a hilar mass, pulmonary infiltrate on the right side, lymph node enlargement. MRI and bone scan suggestive of metastatic disease in the liver and in the bone. There is a component of chronic lung disease as well. The patient is clinically pulmonary point of view, on bronchodilators, cough suppressant. He is also on heparin for paroxysmal atrial fibrillation. The patient is scheduled for biopsy tomorrow and have to hold the heparin four hours before the planned procedure which would be a CT-guided biopsy of the hilar mass. Routine post exam instructions have been given to the patient. We will follow the patient very carefully with you. Dustin Lomeli MD
[2017-10-01] MEDS: guaiFENesin-Codeine 100-10mg/5ml Syrup (5 ml) UD PO PRN ×3 (03:17→15:47)
--- NOTE | 2017-10-01 05:15 | PN ---
DATE: 09/29/2017 ONCOLOGY PROGRESS NOTE LOCATION: Patient is in room 263, bed 1. SUBJECTIVE: We have been asked and requested to follow this patient who has clinically stage IV metastatic lung carcinoma, primary site appears to be the lung, histopathology is yet to be determined, pending biopsy. Patient was admitted with signs and symptoms of progressive shortness of breath, pleuritic pain and symptoms suggestive of acute lobar pneumonia. Workup in the hospital after admission revealed dense infiltrate consolidation in the right lower lobe along with significant mediastinal and hilar adenopathy on the right side. In addition to this, patient also demonstrated to have at least one metastatic disease site in the liver and multiple lesions in the bone. One area in question whether the T7 cervical spine, thoracic spine, which was of concern, for which the patient had an MRI to make sure the tumor was not encroaching on the spinal canal and that was on Sunday, which was negative. Since admission, patient's coughing is better. He is on broad spectrum antibiotics. Patient developed paroxysmal atrial fibrillation yesterday for which he had CT angio, which shows negative for PE. Patient has been placed on IV heparin for the same. Currently patient is examined, lying in bed. Subjectively, patient is sleepy, but arousable, had a detailed conversation with him today, spoke to the patient's two sons and family as well as yesterday. Patient has some cough, coughing appears to be slightly improved. No history of hemoptysis. No hematemesis. No hematuria. No diarrhea. No leg pain or leg swelling. Patient's appetite is decreased and decided to take Ensure. We have ordered calorie counts on him. Patient has lost significant weight over the last three months of more than 12 pounds. PHYSICAL EXAMINATION: GENERAL: Patient is in no acute distress. VITAL SIGNS: Reveals T-max of 98.4, heart rate is 109, respirations 20, blood pressure 99/51, pulse ox 97% on nasal cannula. HEENT: Head is normocephalic and atraumatic. Conjunctivae pale. Sclerae is anicteric. Pupils are equally reactive to light and accommodation. Examination of the oropharynx reveals no oropharyngeal lesions. Tongue is moist. No ulcerations are noted. NECK: Supple. There is no jugular venous distention, no adenopathy. LUNGS: Reveals scattered wheezes and rhonchi bilaterally. Decreased breath sounds in the right side posteriorly. HEART: Reveals PMI to be in the fifth intercostal space inside the midclavicular line. S1 and S2 are normal. No gallop or murmur is heard. ABDOMEN: Soft, nontender. Liver and spleen not palpable. No rebound, rigidity. Guarding is noted. EXTREMITIES: Reveals no cyanosis, clubbing or edema. GENITOURINARY AND RECTAL: Deferred. NEUROLOGIC: Reveals no gross focal deficit. After woke up, we talked to him, patient began intelligent conversation. Patient is concerned what is going to happen to him and we discussed in great detail what are plan of action should be starting Sunday. SKIN: Turgor is normal. No skin lesions are noted. ASSESSMENT, NOTES AND PLAN: I reviewed the patient's x-rays and images at great length with the patient's family. I discussed with them what my clinical findings are and what my thought processes as far as the management is concerned. Patient has stage IV metastatic lung cancer clinically unless proven otherwise. Our plan is to do a CT-guided biopsy of the hilar mass on the right side. It should be very easy to approach with the CT-guided approach. They are going to have Interventional Radiology set it up on Sunday and the heparin may have to be held prior to that. We will talk to the resident in charge of the case and to Cardiology before scheduling the biopsy. Once we have the biopsy, we can make further treatment plan as to with clinical management. Patient has already been seen by Dr. Iqbal in order to see if he is a candidate for palliative RT to the right hilar area so that he could benefit from relief of pressure as there is extra bronchial pressure on the right middle lobe and right lower lobe bronchus, which is causing the dense infiltrate and post obstructive changes for which the patient is admitted with post obstructive pneumonitis. Once we have actionable markers we can then decide whether patient should be started on systemic chemotherapy; however, drugs are depending on testing for ALK gene, EGFR gene, BRAT mutation, KRAS mutation, ROS1 and PD-L1. In addition to these new actionable genes, we may start him on systemic therapy, with depending on what his histopathology with carboplatin and pemetrexed or carboplatin and testing with regimen with PD-L1 inhibitor such as Keytruda or Opdivo. Patient's medications were reviewed, currently on heparin based on weight, metoprolol twice a day, Protonix 40 daily. He is guaifenesin 100 mg every six hours, Tessalon Perles every 8 hours. He is on vancomycin 1 g every 12 hours. Xopenex inhaled every 2 hours as needed. He is on Zosyn 3.375 mg IV piggyback every 6 hours. Labs were also reviewed. Hemoglobin is 12, hematocrit 36, white count is 8.7 with the platelet count of 213,000. INR is 1.35, PT/INR appeared to be normal. Blood cultures and sputum cultures so far had not shown any growth. We will continue to monitor the patient very carefully with you and make appropriate recommendations. We will speak to the primary care team involved and speak to the other consultants also involved in his management. Spoke on length to Dr. García as well who is the pulmonary webmethods consultant on the case. Time spent with the patient is greater than 80 minutes, correlating all the facts, discussion with the family and also planning the next treatment plan on Sunday specifically for the CT-guided biopsy. Patient is on board and has consented to whatever needs to be done. Please make a note, this is a comprehensive, medically necessary and appropriate visit for this patient with multiple comorbid medical issues. Dustin Lomeli MD
[2017-10-01] MEDS: Vancomycin 1gm in NS 250ml 1 GM/250 ML BAG IVPB SCH (05:56)
[2017-10-01] MEDS: Pantoprazole 40 mg EC Tab PO SCH (05:56)
[2017-10-01 06:25] LABS: BASO # 0.04 K/mm3 (0.0-2.0); BASO % 0.5 % (0.0-3.0); EOS # 0.3 (0.0-0.7); EOS % 3.4 % (1.5-5.0); GRAN # 5.54 (1.4-6.5); GRAN % 62.4 % (50.0-68.0); HEMOGLOBIN 12.1 g/dL (14.0-18.0); LYMPH # 1.8 (1.2-3.4); LYMPH % 20.6 % (22.0-35.0); MEAN CELL VOLUME 85.5 fl (80.0-105.0); MEAN CORPUSCULAR HEMOGLOBIN 28.7 pg (25.0-35.0); MEAN CORPUSCULAR HGB CONC 33.6 g/dl (31.0-37.0); MEAN PLATELET VOLUME 10.1 fl (7.0-11.0); MONO # 1.2 (0.1-0.6); MONO % 13.1 % (1.0-6.0); RBC 4.21 10^6/uL (3.5-6.1); RED CELL DISTRIBUTION WIDTH 13.8 % (11.5-14.5); WHITE BLOOD COUNT 8.9 10^3/ul (4.5-11.0)
[2017-10-01 07:02] LABS: INR 1.42 (0.93-1.08); PARTIAL THROMBOPLASTIN TIME 63.6 Seconds (25.1-36.5); PROTHROMBIN TIME 16.4 SECONDS (9.4-12.5)
[2017-10-01] MEDS: Levalbuterol 0.63 MG/3 ML Inhal Soln UD IH PRN ×4 (07:25→23:04)
--- NOTE | 2017-10-01 09:28 | CP.PCM.PN ---
<Kai Matos - Last Filed: 10/01/17 15:03> Subjective - Date & Time of Evaluation Date of Evaluation: 10/01/17 Time of Evaluation: 09:20 - Subjective Subjective: Kai Matos DO PGY1 Internal Medicine [employer] - Medicine Progress Note Pt. seen and evaluated this AM at bedside; only having c/o cough. He may have biopsy today w/ IR - Dr. Jeremiah Toledo. Heparin held this AM for procedure, Will follow up w/ patient post procedure 12 system ROS otherwise negative. Objective - Vital Signs/Intake and Output Vital Signs (last 24 hours): Temp Pulse Resp BP Pulse Ox 98.9 F 85 19 125/67 95 10/01/17 06:00 10/01/17 06:00 10/01/17 06:00 10/01/17 06:00 10/01/17 06:00 Intake and Output: 10/01/17 10/01/17 06:59 18:59 Intake Total 300 110 Output Total 500 Balance -200 110 - Medications Medications: Current Medications Benzonatate (Tessalon Perles) 100 mg PO Q8 [facility] Last Admin: 10/01/17 05:56 Dose: 100 mg Guaifenesin/Codeine Phosphate (Robitussin W/Codeine) 5 ml PO Q4H PRN PRN Reason: Cough and congestion Last Admin: 10/01/17 03:17 Dose: 5 ml Vancomycin HCl (Vancomycin 1gm) 1 gm in 250 mls @ 167 mls/hr IVPB Q12H [facility] PRN Reason: Protocol Last Admin: 10/01/17 05:56 Dose: 167 mls/hr Heparin Sodium/Sodium Chloride (Heparin 16973 Units/250ml 1/2 Normal Saline) 25 ,000 units in 250 mls @ 10.005 mls/hr IV .Q24H PRN; Protocol; 14.23 UNITS/KG/HR PRN Reason: ADJUST RATE PER PROTOCOL Last Admin: 09/29/17 13:15 Dose: 14.23 units/kg/hr, 10.005 mls/hr Levalbuterol HCl (Xopenex) 0.63 mg IH Q2 PRN PRN Reason: Shortness of Breath Last Admin: 10/01/17 07:25 Dose: 0.63 mg Metoprolol Tartrate (Lopressor) 25 mg PO BID [facility] Last Admin: 09/30/17 17:36 Dose: 25 mg Pantoprazole Sodium (Protonix Ec Tab) 40 mg PO 0600 [facility] Last Admin: 10/01/17 05:56 Dose: 40 mg - Labs Labs: 10/01/17 05:20 09/30/17 07:00 PT 16.4 SECONDS (9.4-12.5) H 10/01/17 05:25 INR 1.42 (0.93-1.08) H 10/01/17 05:25 APTT 63.6 Seconds (25.1-36.5) H 10/01/17 05:25 - Constitutional Appears: Well, Non-toxic, No Acute Distress - Head Exam Head Exam: ATRAUMATIC, NORMOCEPHALIC - Eye Exam Eye Exam: EOMI, PERRL. absent: Scleral icterus - ENT Exam ENT Exam: Mucous Membranes Moist, Normal Exam - Respiratory Exam Respiratory Exam: Rhonchi, Wheezes, NORMAL BREATHING PATTERN. absent: Respiratory Distress - Cardiovascular Exam Cardiovascular Exam: RRR, +S1, +S2 - GI/Abdominal Exam GI & Abdominal Exam: Soft, Normal Bowel Sounds. absent: Tenderness, Mass - Extremities Exam Extremities Exam: Normal Inspection. absent: Pedal Edema Additional comments: Distal Pulses 2+ DP/TP BL - Neurological Exam Neurological Exam: Alert, Awake, CN II-XII Intact, Oriented x3 - Psychiatric Exam Psychiatric exam: Normal Affect, Normal Mood - Skin Skin Exam: Dry, Intact, Warm Assessment and Plan - Assessment and Plan (Free Text) Assessment: 76 male, PMhx GI ulcer in 2014, presented with 3 wk hx of productive cough with whitish-yellow sputum and shortness of breath found to primary lung cancer with mets to liver and bone with superimposed post obstructive pneumonia currently awaiting to undergo biopsy. Plan: Post-Obstructive Pneumonia Pt. is still afebrile at this time; only complaining of cough w/ sputum production. Has undergone total of 4 days Vanc and Zosyn; Will DC all abx as per ID at this time. Will c/w Robitussin+Codeine PRN and Tessalon perles PRN C/w bronchodialator Xopenex as per pulm reccs Sputum cx 09/25: moderate gram pos cocci in clusters, moderate pmn wbcs, few gram variable rods Blood cx 09/25: negative U/a 09/25: trace blood Procalcitonin elevated 8.8; Legionella Ag neg CXR on admission 09/25: extensive alveolar infiltrate in R lower lobe consistent with pneumonia Repeat CXR 09/26: unchanged from prior study Mycoplasma PNA IgG positive - likely patient had a pneumonia in past. ID consulted (Dr. Coker), recs appreciated Pulm consulted (Dr. García), recs appreciated Cystic Changes likely 2/2 Pulmonary Malignancy with Bony METS CT chest 09/25: extensive mediastinal and hilar lymphadenopathy suspicious for underlying pulmonary malignancy. Lytic lesion at T7 consistent with metastatic disease. Scattered sclerotic lesions. Extensive R lower lobe pneumonia. Ct abd/pelvis 09/25: scattered osteoblastic lesions in multiple vertebral bodies , posterior elements and ribs. Age-indeterminate fracture of L4 superior end- plate, may be acute and/or pathologic. Low density lesion in anterolateral liver , metastasis suspected. Bone scan 09/26: findings consistent with bony metastatic disease Ct head 09/27: no evidence of metastatic disease, no acute intracranial findings PSA wnl Pulm consulted, recs appreciated Heme/onc consulted (Dr. Lomeli), recs appreciated Radiation onc consulted (Dr. Iqbal): pending MRI thoracic spine to eval T7 lesion more closely, recommend palliative radiation to R lung mass, will discuss further with heme/onc team Patient scheduled to undergo biopsy today w/ IR Dr. Jeremiah Toledo; will follow up w/ heme onc once biopsy completed regarding further mgmt New-onset atrial fibrillation with rapid ventricular response Rapid response called on 09/26/17; pt had additional episode overnight that converted back to normal sinus rhythm after several minutes spontaneously Heparin drip held this AM for biopsy; will convert to eliquis once no further interventions planned C/w metoprolol 25 mg PO bid CTA 09/28 neg for GA Cardio consulted (Dr. Chirinos), recs appreciated DVT/GI ppx: Heparin drip (held today)/Protonix Disposition plan: Patient has been accepted by TCU; Will transfer once biopsy completed and no further intervention reccomended; Will start patient on eliquis upon transfer. <Tru Larkin - Last Filed: 10/01/17 16:49> Objective - Vital Signs/Intake and Output Vital Signs (last 24 hours): Temp Pulse Resp BP Pulse Ox 97.6 F 76 20 100/59 L 95 10/01/17 12:00 10/01/17 12:00 10/01/17 12:00 10/01/17 12:00 10/01/17 06:00 Intake and Output: 10/01/17 10/01/17 06:59 18:59 Intake Total 300 110 Output Total 500 Balance -200 110 - Medications Medications: Current Medications Benzonatate (Tessalon Perles) 100 mg PO Q8 [facility] Last Admin: 10/01/17 14:06 Dose: 100 mg Guaifenesin/Codeine Phosphate (Robitussin W/Codeine) 5 ml PO Q4H PRN PRN Reason: Cough and congestion Last Admin: 10/01/17 15:47 Dose: 5 ml Heparin Sodium/Sodium Chloride (Heparin 40356 Units/250ml 1/2 Normal Saline) 25 ,000 units in 250 mls @ 10.005 mls/hr IV .Q24H PRN; Protocol; 14.23 UNITS/KG/HR PRN Reason: ADJUST RATE PER PROTOCOL Last Admin: 09/29/17 13:15 Dose: 14.23 units/kg/hr, 10.005 mls/hr Levalbuterol HCl (Xopenex) 0.63 mg IH Q2 PRN PRN Reason: Shortness of Breath Last Admin: 10/01/17 10:45 Dose: 0.63 mg Megestrol Acetate (Megace) 200 mg PO DAILY [facility] Last Admin: 10/01/17 15:47 Dose: 200 mg Metoprolol Tartrate (Lopressor) 25 mg PO BID [facility] Last Admin: 10/01/17 09:38 Dose: 25 mg Pantoprazole Sodium (Protonix Ec Tab) 40 mg PO 0600 [facility] Last Admin: 10/01/17 05:56 Dose: 40 mg - Labs Labs: 10/01/17 05:20 10/01/17 06:30 PT 16.4 SECONDS (9.4-12.5) H 10/01/17 05:25 INR 1.42 (0.93-1.08) H 10/01/17 05:25 APTT 63.6 Seconds (25.1-36.5) H 10/01/17 05:25 Attending/Attestation - Attestation I have personally seen and examined this patient.: Yes I have fully participated in the care of the patient.: Yes I have reviewed all pertinent clinical information, including history, physical exam and plan: Yes Notes (Text): 10/01/17 16:44 76 year old male with past medical history of chronic smoking (quit ~5 years ago ) who presented with complaint of cough and shortness of breath. CT chest showed right lower lobe pneumonia, likely post obstructive, with diffuse moderate mediastinal lymphadenopathy and lesions suggestive of mets. CT abd/pelvis also revealed liver lesion and possible lumbar spine metastasis. Hematology/oncology is following. Plan is for IR liver biopsy today. Patient also had paroxysmal afib for which he was started on metoprolol for rate control and heparin drip for anticoagulation (on hold for now for biopsy). PT evaluation was appreciated who recommended TCU to which he has been accepted. Will follow up with oncology recommendations. Tru Larkin MD Hospitalist.
[2017-10-01 09:32] LABS: ALB/GLOB RATIO 0.9 (1.1-1.8); ALBUMIN 2.7 g/dL (3.0-4.8); ALT/SGPT 43 U/L (7-56); AST/SGOT 35 U/L (17-59); BLOOD UREA NITROGEN 7 mg/dL (7-21); CALCIUM 7.6 mg/dL (8.4-10.5); GFR AFRICAN-AMERICAN > 60; GFR NON-AFRICAN AMERICAN > 60
[2017-10-01] MEDS ORDERED: cefTRIAXone 1 gm 1 GM/100 ML BAG IVPB SCH (15:00)
[2017-10-01] MEDS ORDERED: Azithromycin 250 MG in Sodium Chloride 0.9% 250 ML IVPB SCH (15:00)
[2017-10-01] MEDS: Megestrol Acetate 40 mg/ml Cup PO SCH (15:47)
[2017-10-01] MEDS ORDERED: Midazolam 2 MG/2 ML VIAL ONE (16:21)
[2017-10-01] MEDS ORDERED: Lidocaine 1% Inj (20ml) ONE (16:22)
[2017-10-01] MEDS ORDERED: Oxycodone/Acetaminophen 5/325 mg Tab PO PRN (17:38)
--- NOTE | 2017-10-01 17:46 | CP.PCM.PN ---
Subjective - Date & Time of Evaluation Date of Evaluation: 10/01/17 Time of Evaluation: 16:15 - Subjective Subjective: Infectious Disease Follow Up: October 01, 2017 76 yo male with presentation of SOB and cough productive of sputum. The patient has had symptoms for the past 3 weeks. He was recently in [place] for his son's wedding. Patient states that "food does not taste the same". He has lost [address] scan showing extensive right lower lobe pneumonia but what is more concerning is the extensive mediastinal and hilar adenopathy with lytic lesion at T7. The patient has been started on IV Rocephin and Azithromycin for antibiotic care. No WBC. Procalcitonin of 8.8 at this time. New onset Atrial Fibrillation two nights ago... transferred to telemetry. The family and the patient have been refusing biopsy at this time. Emphasized to the patient and present family members (daughter and son-in-law) importance of the biopsy in determining diagnosis and type of treatment options available for the patient. Patient states that he is not sleeping well in the hospital. Noted the patient with Atrial fibrillation last night. Taken for lung biopsy this afternoon. Objective - Vital Signs/Intake and Output Vital Signs (last 24 hours): Temp Pulse Resp BP Pulse Ox 97.6 F 76 20 100/59 L 95 10/01/17 12:00 10/01/17 12:00 10/01/17 12:00 10/01/17 12:00 10/01/17 06:00 Intake and Output: 10/01/17 10/01/17 06:59 18:59 Intake Total 300 110 Output Total 500 Balance -200 110 - Medications Medications: Current Medications Benzonatate (Tessalon Perles) 100 mg PO Q8 [facility] Last Admin: 10/01/17 14:06 Dose: 100 mg Guaifenesin/Codeine Phosphate (Robitussin W/Codeine) 5 ml PO Q4H PRN PRN Reason: Cough and congestion Last Admin: 10/01/17 15:47 Dose: 5 ml Heparin Sodium/Sodium Chloride (Heparin 93036 Units/250ml 1/2 Normal Saline) 25 ,000 units in 250 mls @ 10.005 mls/hr IV .Q24H PRN; Protocol; 14.23 UNITS/KG/HR PRN Reason: ADJUST RATE PER PROTOCOL Last Admin: 09/29/17 13:15 Dose: 14.23 units/kg/hr, 10.005 mls/hr Levalbuterol HCl (Xopenex) 0.63 mg IH Q2 PRN PRN Reason: Shortness of Breath Last Admin: 10/01/17 10:45 Dose: 0.63 mg Megestrol Acetate (Megace) 200 mg PO DAILY [facility] Last Admin: 10/01/17 15:47 Dose: 200 mg Metoprolol Tartrate (Lopressor) 25 mg PO BID [facility] Last Admin: 10/01/17 09:38 Dose: 25 mg Oxycodone/Acetaminophen (Percocet 5/325 Mg Tab) 1 tab PO Q6H PRN PRN Reason: Pain, moderate (4-7) Stop: 10/04/17 17:39 Pantoprazole Sodium (Protonix Ec Tab) 40 mg PO 0600 [facility] Last Admin: 10/01/17 05:56 Dose: 40 mg - Labs Labs: 10/01/17 05:20 10/01/17 06:30 PT 16.4 SECONDS (9.4-12.5) H 10/01/17 05:25 INR 1.42 (0.93-1.08) H 10/01/17 05:25 APTT 63.6 Seconds (25.1-36.5) H 10/01/17 05:25 - Constitutional Appears: Non-toxic, No Acute Distress, Chronically Ill - Head Exam Head Exam: ATRAUMATIC, NORMOCEPHALIC - Eye Exam Eye Exam: EOMI, PERRL Pupil Exam: NORMAL ACCOMODATION, PERRL - ENT Exam ENT Exam: Mucous Membranes Moist, Normal External Ear Exam, TM's Normal Bilaterally - Neck Exam Neck Exam: Full ROM, Normal Inspection - Respiratory Exam Respiratory Exam: Clear to Ausculation Bilateral, NORMAL BREATHING PATTERN. absent: Rales, Rhonchi, Wheezes - Cardiovascular Exam Cardiovascular Exam: REGULAR RHYTHM, RRR, +S1, +S2 - GI/Abdominal Exam GI & Abdominal Exam: Soft, Normal Bowel Sounds. absent: Distended, Tenderness - Extremities Exam Extremities Exam: Full ROM, Normal Inspection - Neurological Exam Neurological Exam: Alert, Awake, CN II-XII Intact, Oriented x3 - Psychiatric Exam Psychiatric exam: Normal Affect, Normal Mood - Skin Skin Exam: Intact, Normal Color Assessment and Plan - Assessment and Plan (Free Text) Assessment: 76 yo male with large amount of weight loss (19 lbs) and multiple CT lung findings. The patient started on Ceftriaxone and Azithromycin. Must rule out malignancy. Check for Tuberculosis. Check PPD and Quantiferon. Consider surgery or IR evaluation for biopsy of suspicious areas. Supportive care. May need Heme/Onc evaluation as well. Check ESR and C-Reactive Protein. The most likely diagnosis given the current symptoms is malignancy. Given overall picture, Tuberculosis is a much less likely diagnosis. Malignancy is extremely likely. Overall correction prognosis is very poor. Discussed with family and the patient importance of a biopsy in determining diagnosis and available care/ treatment options. Would consider no more than 7 days of Ceftriaxone and Azithromycin. Currently off of antibiotics. Taken for lung biopsy today. Thank you for allowing me to participate in the care of the patient, we will follow with you.
--- NOTE | 2017-10-01 18:20 | CT ---
PROCEDURE: CT guided right hilar biopsy. HISTORY: Smoker. Large right hilar mass. Probable lung carcinoma. PHYSICIAN(S): Jeremiah Toledo MD. TECHNIQUE: The relative risks and indications of the procedure were explained to the patient and his family and consent obtained. The patient was placed prone on the CT scanner and preliminary images through the toshia obtained. Conscious sedation and monitoring were provided throughout the procedure by a nurse. There is a large right hilar mass with postobstructive changes in the right lower lobe.. A right posterior approach was selected and the area prepped and draped in the usual sterile fashion. 1% Xylocaine was used to anesthetize the skin and soft tissues. A 19 gauge guiding needle was advanced into the right hilar mass inferiorly and medially. Its position was confirmed with CT. Using coaxial technique, multiple core biopsies were obtained. The post biopsy images demonstrate a small pneumothorax but the patient was symptomatic. A CT chest tube will be placed. IMPRESSION: 1. CT-guided right hilar biopsy as described above.
--- NOTE | 2017-10-01 18:43 | CP.PCM.PN ---
Subjective - Date & Time of Evaluation Date of Evaluation: 10/01/17 Time of Evaluation: 18:33 - Subjective Subjective: Sobeida Dukes, PGY2, Heme-Onc Progress Note for Dr Lomeli: Patient seen and examined at bedside. No acute events overnight. Reports ongoing hemoptysis, generalized weakness, fatigue, poor appetite. Denies fevers , chills, nausea, vomiting, abdominal pain, leg swelling. Objective - Vital Signs/Intake and Output Vital Signs (last 24 hours): Temp Pulse Resp BP Pulse Ox 98 F 72 18 111/56 L 95 10/01/17 18:20 10/01/17 18:20 10/01/17 18:20 10/01/17 18:20 10/01/17 17:25 Intake and Output: 10/01/17 10/01/17 06:59 18:59 Intake Total 300 410 Output Total 500 Balance -200 410 - Medications Medications: Current Medications Benzonatate (Tessalon Perles) 100 mg PO Q8 [facility] Last Admin: 10/01/17 14:06 Dose: 100 mg Fentanyl (Fentanyl) 200 mcg IVP ONCE ONE Stop: 10/01/17 17:19 Guaifenesin/Codeine Phosphate (Robitussin W/Codeine) 5 ml PO Q4H PRN PRN Reason: Cough and congestion Last Admin: 10/01/17 15:47 Dose: 5 ml Heparin Sodium/Sodium Chloride (Heparin 71659 Units/250ml 1/2 Normal Saline) 25 ,000 units in 250 mls @ 10.005 mls/hr IV .Q24H PRN; Protocol; 14.23 UNITS/KG/HR PRN Reason: ADJUST RATE PER PROTOCOL Last Admin: 09/29/17 13:15 Dose: 14.23 units/kg/hr, 10.005 mls/hr Levalbuterol HCl (Xopenex) 0.63 mg IH Q2 PRN PRN Reason: Shortness of Breath Last Admin: 10/01/17 10:45 Dose: 0.63 mg Megestrol Acetate (Megace) 200 mg PO DAILY [facility] Last Admin: 10/01/17 15:47 Dose: 200 mg Metoprolol Tartrate (Lopressor) 25 mg PO BID [facility] Last Admin: 10/01/17 09:38 Dose: 25 mg Oxycodone/Acetaminophen (Percocet 5/325 Mg Tab) 1 tab PO Q6H PRN PRN Reason: Pain, moderate (4-7) Stop: 10/04/17 17:39 Pantoprazole Sodium (Protonix Ec Tab) 40 mg PO 0600 [facility] Last Admin: 10/01/17 05:56 Dose: 40 mg - Labs Labs: 10/01/17 05:20 10/01/17 06:30 PT 16.4 SECONDS (9.4-12.5) H 10/01/17 05:25 INR 1.42 (0.93-1.08) H 10/01/17 05:25 APTT 63.6 Seconds (25.1-36.5) H 10/01/17 05:25 - Constitutional Appears: Older Than Stated Age, Cachectic, Chronically Ill - Head Exam Head Exam: ATRAUMATIC, NORMOCEPHALIC - Eye Exam Eye Exam: EOMI, PERRL. absent: Conjunctival injection, Nystagmus, Scleral icterus Pupil Exam: NORMAL ACCOMODATION, PERRL. absent: Irregular, Miosis, Unequal - ENT Exam ENT Exam: Mucous Membranes Dry - Neck Exam Neck Exam: Full ROM - Respiratory Exam Respiratory Exam: Decreased Breath Sounds, Rhonchi, NORMAL BREATHING PATTERN. absent: Stridor Additional comments: on NC - Cardiovascular Exam Cardiovascular Exam: REGULAR RHYTHM, RRR, +S1, +S2. absent: Murmur - GI/Abdominal Exam GI & Abdominal Exam: Soft, Normal Bowel Sounds. absent: Guarding, Rigid, Tenderness, Mass, Organomegaly - Extremities Exam Extremities Exam: Full ROM, Normal Inspection. absent: Calf Tenderness, Pedal Edema - Back Exam Back Exam: NORMAL INSPECTION - Neurological Exam Neurological Exam: Alert, Awake, Oriented x3 - Psychiatric Exam Psychiatric exam: Depressed - Skin Skin Exam: Normal Color, Warm Assessment and Plan - Assessment and Plan (Free Text) Assessment: 76 year old male with PMH gastric ulcer, gastritis, admitted for RLL pneumonia, found to have extensive mediastinal and hilar adenopathy and lytic lesions at T7 , other vertebral bodies and liver mets. Patient's hospital course complicated by onset of afib, started on heparin drip and cardizem. Currently, NSR. Patient scheduled for CT guided biopsy of hilar mass with Dr Toledo today: - f/u biopsy results - started on Megace - c/w cardizem for afib - c/w IV antibiotics - monitor Case seen and discussed with Dr Lomeli.
--- NOTE | 2017-10-01 18:47 | PN ---
DATE: 10/01/2017 FOLLOWUP NOTE SUBJECTIVE: The patient denies any chest pain. He is mildly short of breath. PHYSICAL EXAMINATION: VITAL SIGNS: Blood pressure 100/59, heart rate 76, temperature 97.6, and respirations 20. HEENT: Normocephalic. CHEST: Scattered bilateral wheezing. HEART: S1 and S2, regular. EXTREMITIES: Trace leg edema. LABORATORY DATA: Today's hemoglobin and hematocrit 12.1 and 36.2, white count and platelet count are within normal limits. Today's SMA-7 is within normal limits except for creatinine 0.7. Calcium is within normal at 7.6. Blood cultures negative after 5 days and sputum culture was negative except for normal oral bernard. ASSESSMENT: 1. Metastatic lung cancer. 2. Paroxysmal atrial fibrillation. 3. Suspected liver metastasis. RECOMMENDATIONS: Continue current intravenous heparin infusion. Continue Lopressor 25 mg twice a day, Robitussin with codeine 5 mL every 4 hours p.r.n., Protonix 40 mg p.o. once a day, Xopenex inhaler every 2 hours. The plan is to schedule the patient for liver biopsy. For now, intravenous heparin is on hold. Overall, prognosis appears to be grave. Carloz Kapadia MD
[2017-10-01] MEDS ORDERED: Morphine 2 mg/ml ISec IVP ONE (19:11)
[2017-10-01] MEDS: Morphine 2 mg/ml ISec IVP PRN ×2 (19:23→23:26)
[2017-10-02] MEDS: Morphine 2 mg/ml ISec IVP PRN ×4 (03:49→23:22)
--- NOTE | 2017-10-02 03:56 | PN ---
DATE: 10/01/2017 PULMONARY PROGRESS NOTE REFERRING PHYSICIAN: Lenka Owens MD SUBJECTIVE: He is seen and examined in the post operating room, status post lung biopsy, underwent pneumothorax requiring chest tube, had some air leak, sleepy, arousable. No cough. No sputum production. No nausea. No vomiting. No diarrhea. No leg pain or leg swelling. OBJECTIVE: GENERAL: In no acute distress. VITAL SIGNS: Temperature is 98, heart rate 89, respiratory rate 18, blood pressure 151/83, pulse ox 95% on supplemental oxygen. HEENT: Moist mucous membrane. No ulcer or thrush noted. NECK: Supple. No JVD. LUNGS: Has scattered rhonchi. Right-sided chest tube with air leak. HEART: S1 and S2. ABDOMEN: Soft, nontender. No organomegaly. EXTREMITIES: No edema. NEUROLOGIC: Awake, alert, follows simple commands. MEDICATIONS: He is on metoprolol tartrate 25 mg twice a day, Megace 200 mg daily, morphine 2 mg every 4 hours p.r.n., Percocet 5/325 one tablet every 6 hours p.r.n., Protonix 40 mg daily, Robitussin with codeine 5 mL every 4 hours p.r.n., Rocephin 1 g IV daily, Tessalon Perles 100 mg every 8 hours, Xopenex inhaler every 2 hours p.r.n. LABORATORY DATA: Shows hemoglobin 12.1, hematocrit 36, WBC 8.9, platelet count is 247. INR 1.42, PTT 64. Sodium 137, potassium 4.4, chloride 106, bicarbonate 22, BUN 7, creatinine 0.7. Glucose 88. Calcium is 7.6. AST 35, ALT 43, alk phos is 103, albumin is 2.7. Microbiology, blood culture and sputum culture, there is no growth. IMPRESSION AND PLAN: Hilar mass, pulmonary infiltrate, lymph node enlargement. MRI and bone scan suggested metastatic disease. There is a component of chronic lung disease, has a cough, status post lung biopsy, underwent pneumothorax requiring chest tube. Comfortable, on supplemental oxygen. Continue bronchodilator. Pain management. Gastric prophylaxis. Follow up x-ray in the morning. Thank you and we will follow with you. Lenka García MD [facility] # [id number]
[2017-10-02] MEDS: Pantoprazole 40 mg EC Tab PO SCH (06:01)
[2017-10-02 06:42] LABS: BASO # 0.04 K/mm3 (0.0-2.0); BASO % 0.4 % (0.0-3.0); EOS # 0.1 (0.0-0.7); EOS % 1.1 % (1.5-5.0); GRAN # 8.07 (1.4-6.5); GRAN % 75.5 % (50.0-68.0); HEMOGLOBIN 12.7 g/dL (14.0-18.0); LYMPH # 1.5 (1.2-3.4); LYMPH % 13.9 % (22.0-35.0); MEAN CELL VOLUME 85.6 fl (80.0-105.0); MEAN CORPUSCULAR HEMOGLOBIN 28.5 pg (25.0-35.0); MEAN CORPUSCULAR HGB CONC 33.3 g/dl (31.0-37.0); MEAN PLATELET VOLUME 9.7 fl (7.0-11.0); MONO % 9.1 % (1.0-6.0); RBC 4.45 10^6/uL (3.5-6.1); RED CELL DISTRIBUTION WIDTH 13.8 % (11.5-14.5)
[2017-10-02 07:06] LABS: WHITE BLOOD COUNT 10.7 10^3/ul (4.5-11.0)
[2017-10-02] MEDS: Levalbuterol 0.63 MG/3 ML Inhal Soln UD IH PRN ×2 (07:34→20:55)
[2017-10-02 08:55] LABS: INR 1.31
[2017-10-02] MEDS: guaiFENesin-Codeine 100-10mg/5ml Syrup (5 ml) UD PO PRN ×2 (09:22→17:40)
[2017-10-02] MEDS: Megestrol Acetate 40 mg/ml Cup PO SCH (09:22)
[2017-10-02] MEDS: cefTRIAXone 1 gm 1 GM/100 ML BAG IVPB SCH (09:22)
[2017-10-02 09:24] LABS: ALB/GLOB RATIO 0.8 (1.1-1.8); ALBUMIN 2.6 g/dL (3.0-4.8); ALT/SGPT 38 U/L (7-56); AST/SGOT 32 U/L (17-59); BLOOD UREA NITROGEN 9 mg/dL (7-21); CALCIUM 7.9 mg/dL (8.4-10.5); GFR AFRICAN-AMERICAN > 60; GFR NON-AFRICAN AMERICAN > 60
[2017-10-02] MEDS ORDERED: Potassium Phosphate 15 MMOLE in Sodium Chloride 0.9% 250 ML IVPB ONE (09:35)
--- NOTE | 2017-10-02 10:37 | RAD ---
Date of service: 10/02/2017 HISTORY: rt chest tube COMPARISON: 09/26/2017 FINDINGS: LUNGS: There is a small pigtail chest tube at the right lung base. There is an increasing diffuse right-sided infiltrate. The left lung is relatively clear. There is mild cardiomegaly PLEURA: No significant pleural effusion identified, no pneumothorax apparent. CARDIOVASCULAR: Mild cardiomegaly OSSEOUS STRUCTURES: No significant abnormalities. VISUALIZED UPPER ABDOMEN: Normal. OTHER FINDINGS: None. IMPRESSION: There is a small pigtail chest tube at the right lung base. There is an increasing diffuse right-sided infiltrate. The left lung is relatively clear. There is mild cardiomegaly
--- NOTE | 2017-10-02 10:46 | CP.PCM.PN ---
Subjective - Date & Time of Evaluation Date of Evaluation: 10/02/17 Time of Evaluation: 10:30 - Subjective Subjective: Mr Layton is a 76 year old gentleman with stage IV lung cancer. He had a biopsy yesterday. The pathology is pending. He does have a chest-tube for his pneumothorax. We were asked to see the patient again today by Dr Lomeli because of hemoptysis. On evaluation by his bedside, he has a productive cough with blood tinged sputum. There were no apparent clots in the sputum. We spoke to the patient and contacted their family about palliative radiation to mitigate his bleeding. We also spoke to Dr Larkin about the plans for palliative radiation. Dr Lomeli is aware about the plans to begin the radiation. He is coming down shortly for the planning of the radiation. Objective - Vital Signs/Intake and Output Vital Signs (last 24 hours): Temp Pulse Resp BP Pulse Ox 97.9 F 81 18 109/64 94 L 10/02/17 06:00 10/02/17 10:18 10/02/17 06:00 10/02/17 10:18 10/02/17 06:00 Intake and Output: 10/02/17 10/02/17 06:59 18:59 Intake Total 300 Output Total 250 450 Balance -250 -150 - Medications Medications: Current Medications Benzonatate (Tessalon Perles) 100 mg PO Q8 [facility] Last Admin: 10/02/17 06:02 Dose: 100 mg Guaifenesin/Codeine Phosphate (Robitussin W/Codeine) 5 ml PO Q4H PRN PRN Reason: Cough and congestion Last Admin: 10/02/17 09:22 Dose: 5 ml Heparin Sodium/Sodium Chloride (Heparin 10788 Units/250ml 1/2 Normal Saline) 25 ,000 units in 250 mls @ 10.005 mls/hr IV .Q24H PRN; Protocol; 14.23 UNITS/KG/HR PRN Reason: ADJUST RATE PER PROTOCOL Last Admin: 09/29/17 13:15 Dose: 14.23 units/kg/hr, 10.005 mls/hr Ceftriaxone Sodium (Rocephin 1 Gram Ivpb) 1 gm in 100 mls @ 100 mls/hr IVPB DAILY [facility] PRN Reason: Protocol Last Admin: 10/02/17 09:22 Dose: 100 mls/hr Potassium Phosphate 15 mmole/ (Sodium Chloride) 255 mls @ 42.5 mls/hr IVPB ONCE ONE Stop: 10/02/17 15:34 Levalbuterol HCl (Xopenex) 0.63 mg IH Q2 PRN PRN Reason: Shortness of Breath Last Admin: 10/02/17 07:34 Dose: 0.63 mg Megestrol Acetate (Megace) 200 mg PO DAILY [facility] Last Admin: 10/02/17 09:22 Dose: 200 mg Metoprolol Tartrate (Lopressor) 25 mg PO BID [facility] Last Admin: 10/02/17 10:18 Dose: 25 mg Morphine Sulfate (Morphine) 2 mg IVP Q4H PRN PRN Reason: Pain, severe (8-10) Last Admin: 10/02/17 03:49 Dose: 2 mg Oxycodone/Acetaminophen (Percocet 5/325 Mg Tab) 1 tab PO Q6H PRN PRN Reason: Pain, moderate (4-7) Stop: 10/04/17 17:39 Pantoprazole Sodium (Protonix Ec Tab) 40 mg PO 0600 [facility] Last Admin: 10/02/17 06:01 Dose: 40 mg - Labs Labs: 10/02/17 06:00 10/02/17 07:30 PT 15.2 SECONDS 10/02/17 07:30 INR 1.31 10/02/17 07:30 APTT 28.7 Seconds 10/02/17 07:30
--- NOTE | 2017-10-02 12:47 | CP.PCM.PN ---
Subjective - Date & Time of Evaluation Date of Evaluation: 10/02/17 Time of Evaluation: 12:42 - Subjective Subjective: Sobeida Dukes, PGY2, Heme-Onc Progress Note for Dr Lomeli: Patient seen and examined at bedside. Overnight, patient noted to have hemoptysis. Denies fevers, chills, nausea, vomiting, abdominal pain, leg swelling. Objective - Vital Signs/Intake and Output Vital Signs (last 24 hours): Temp Pulse Resp BP Pulse Ox 97.9 F 81 18 109/64 94 L 10/02/17 06:00 10/02/17 10:18 10/02/17 06:00 10/02/17 10:18 10/02/17 06:00 Intake and Output: 10/02/17 10/02/17 06:59 18:59 Intake Total 300 Output Total 250 450 Balance -250 -150 - Medications Medications: Current Medications Benzonatate (Tessalon Perles) 100 mg PO Q8 [facility] Last Admin: 10/02/17 06:02 Dose: 100 mg Guaifenesin/Codeine Phosphate (Robitussin W/Codeine) 5 ml PO Q4H PRN PRN Reason: Cough and congestion Last Admin: 10/02/17 09:22 Dose: 5 ml Heparin Sodium/Sodium Chloride (Heparin 07136 Units/250ml 1/2 Normal Saline) 25 ,000 units in 250 mls @ 10.005 mls/hr IV .Q24H PRN; Protocol; 14.23 UNITS/KG/HR PRN Reason: ADJUST RATE PER PROTOCOL Last Admin: 09/29/17 13:15 Dose: 14.23 units/kg/hr, 10.005 mls/hr Ceftriaxone Sodium (Rocephin 1 Gram Ivpb) 1 gm in 100 mls @ 100 mls/hr IVPB DAILY [facility] PRN Reason: Protocol Last Admin: 10/02/17 09:22 Dose: 100 mls/hr Potassium Phosphate 15 mmole/ (Sodium Chloride) 255 mls @ 42.5 mls/hr IVPB ONCE ONE Stop: 10/02/17 15:34 Levalbuterol HCl (Xopenex) 0.63 mg IH Q2 PRN PRN Reason: Shortness of Breath Last Admin: 10/02/17 07:34 Dose: 0.63 mg Megestrol Acetate (Megace) 200 mg PO DAILY [facility] Last Admin: 10/02/17 09:22 Dose: 200 mg Metoprolol Tartrate (Lopressor) 25 mg PO BID [facility] Last Admin: 10/02/17 10:18 Dose: 25 mg Morphine Sulfate (Morphine) 2 mg IVP Q4H PRN PRN Reason: Pain, severe (8-10) Last Admin: 10/02/17 11:38 Dose: 2 mg Oxycodone/Acetaminophen (Percocet 5/325 Mg Tab) 1 tab PO Q6H PRN PRN Reason: Pain, moderate (4-7) Stop: 10/04/17 17:39 Pantoprazole Sodium (Protonix Ec Tab) 40 mg PO 0600 [facility] Last Admin: 10/02/17 06:01 Dose: 40 mg - Labs Labs: 10/02/17 06:00 10/02/17 07:30 PT 15.2 SECONDS 10/02/17 07:30 INR 1.31 10/02/17 07:30 APTT 28.7 Seconds 10/02/17 07:30 - Additional Findings Additional findings: - Constitutional Appears: Older Than Stated Age, Cachectic, Chronically Ill - Head Exam Head Exam: ATRAUMATIC, NORMOCEPHALIC - Eye Exam Eye Exam: EOMI, PERRL. absent: Conjunctival injection, Nystagmus, Scleral icterus Pupil Exam: NORMAL ACCOMODATION, PERRL. absent: Irregular, Miosis, Unequal - ENT Exam ENT Exam: Mucous Membranes Dry - Neck Exam Neck Exam: Full ROM - Respiratory Exam Respiratory Exam: Decreased Breath Sounds, Rhonchi, NORMAL BREATHING PATTERN. absent: Stridor Additional comments: on NC - Cardiovascular Exam Cardiovascular Exam: REGULAR RHYTHM, RRR, +S1, +S2. absent: Murmur right sided chest tube in place, draining SS fluid - GI/Abdominal Exam GI & Abdominal Exam: Soft, Normal Bowel Sounds. absent: Guarding, Rigid, Tenderness, Mass, Organomegaly - Extremities Exam Extremities Exam: Full ROM, Normal Inspection. absent: Calf Tenderness, Pedal Edema - Back Exam Back Exam: NORMAL INSPECTION - Neurological Exam Neurological Exam: Alert, Awake, Oriented x3 - Psychiatric Exam Psychiatric exam: Depressed - Skin Skin Exam: Normal Color, Warm Assessment and Plan - Assessment and Plan (Free Text) Assessment: 76 year old male with PMH gastric ulcer, gastritis, admitted for RLL pneumonia, found to have extensive mediastinal and hilar adenopathy and lytic lesions at T7 , other vertebral bodies and liver mets. Patient's hospital course complicated by onset of afib, started on heparin drip and cardizem. Patient underwent CT guided biopsy of hilar mass yesterday, has right sided chest tube (draining 1090 cc of SS fluid), patient developed hemoptysis overnight (Hgb stable). Radiation-oncologist Dr Farida blake, will schedule for 4-5 radiation therapy: - f/u biopsy results - C/w Megace - c/w cardizem for afib - c/w IV antibiotics - Hold anticoagulation for afib due to hemoptysis. Consult with Cardio when warfarin/heparin needs to be resumed - Dr Lomeli spoke to son regarding patient's clinical status - monitor Case seen and discussed with Dr Lomeli.
--- NOTE | 2017-10-02 15:19 | CT ---
PROCEDURE: CT-guided right chest tube placement HISTORY: Status post right hilar biopsy. Pneumothorax with pain and shortness of breath. Hypoxia PHYSICIAN(S): Jeremiah Toledo MD. TECHNIQUE: The relative risks and indications for the procedure were explained to the patient and his family and informed consent obtained. The patient was placed in a supine position on the CT scanner and preliminary images through the chest performed. This revealed a small to moderate right pneumothorax. A right anterior approach was selected and the area prepped/draped in the usual sterile fashion. Conscious sedation and monitoring were provided throughout the procedure by nurse. An 18-gauge needle was advanced into the right pleural cavity and air aspirated. 0.035 J-wire was coiled in the right pleural space. Sequential dilatation was performed with placement of 12 Amharic pigtail chest tube. The chest tube was retracted anteriorly and secured. The chest tube was placed to 30 cm H2O continuous low suction. Limited images demonstrate resolution the patient's right pneumothorax. IMPRESSION: 1. CT-guided right chest tube placement as described above.
--- NOTE | 2017-10-02 16:04 | CP.PCM.PN ---
Subjective - Date & Time of Evaluation Date of Evaluation: 10/02/17 Time of Evaluation: 14:00 - Subjective Subjective: Infectious Disease Follow Up: October 02, 2017 76 yo male with presentation of SOB and cough productive of sputum. The patient has had symptoms for the past 3 weeks. He was recently in [place] for his son's wedding. Patient states that "food does not taste the same". He has lost [address] scan showing extensive right lower lobe pneumonia but what is more concerning is the extensive mediastinal and hilar adenopathy with lytic lesion at T7. The patient has been started on IV Rocephin and Azithromycin for antibiotic care. No WBC. Procalcitonin of 8.8 at this time. New onset Atrial Fibrillation two nights ago... transferred to telemetry. The family and the patient have been refusing biopsy at this time. Emphasized to the patient and present family members (daughter and son-in-law) importance of the biopsy in determining diagnosis and type of treatment options available for the patient. Patient states that he is not sleeping well in the hospital. Noted the patient with Atrial fibrillation last night. Taken for lung biopsy yesterday afternoon. The patient with hemoptysis. Seen by radiation oncology Dr. Iqbal for palliative radiation evaluation. Objective - Vital Signs/Intake and Output Vital Signs (last 24 hours): Temp Pulse Resp BP Pulse Ox 97.9 F 81 18 109/64 94 L 10/02/17 06:00 10/02/17 10:18 10/02/17 06:00 10/02/17 10:18 10/02/17 06:00 Intake and Output: 10/02/17 10/02/17 06:59 18:59 Intake Total 300 Output Total 250 450 Balance -250 -150 - Medications Medications: Current Medications Benzonatate (Tessalon Perles) 100 mg PO Q8 [facility] Last Admin: 10/02/17 15:29 Dose: 100 mg Guaifenesin/Codeine Phosphate (Robitussin W/Codeine) 5 ml PO Q4H PRN PRN Reason: Cough and congestion Last Admin: 10/02/17 09:22 Dose: 5 ml Heparin Sodium/Sodium Chloride (Heparin 04785 Units/250ml 1/2 Normal Saline) 25 ,000 units in 250 mls @ 10.005 mls/hr IV .Q24H PRN; Protocol; 14.23 UNITS/KG/HR PRN Reason: ADJUST RATE PER PROTOCOL Last Admin: 09/29/17 13:15 Dose: 14.23 units/kg/hr, 10.005 mls/hr Ceftriaxone Sodium (Rocephin 1 Gram Ivpb) 1 gm in 100 mls @ 100 mls/hr IVPB DAILY [facility] PRN Reason: Protocol Last Admin: 10/02/17 09:22 Dose: 100 mls/hr Levalbuterol HCl (Xopenex) 0.63 mg IH Q2 PRN PRN Reason: Shortness of Breath Last Admin: 10/02/17 07:34 Dose: 0.63 mg Megestrol Acetate (Megace) 200 mg PO DAILY [facility] Last Admin: 10/02/17 09:22 Dose: 200 mg Metoprolol Tartrate (Lopressor) 25 mg PO BID [facility] Last Admin: 10/02/17 10:18 Dose: 25 mg Morphine Sulfate (Morphine) 2 mg IVP Q4H PRN PRN Reason: Pain, severe (8-10) Last Admin: 10/02/17 15:25 Dose: 2 mg Oxycodone/Acetaminophen (Percocet 5/325 Mg Tab) 1 tab PO Q6H PRN PRN Reason: Pain, moderate (4-7) Stop: 10/04/17 17:39 Pantoprazole Sodium (Protonix Ec Tab) 40 mg PO 0600 [facility] Last Admin: 10/02/17 06:01 Dose: 40 mg Sotalol HCl (Betapace) 80 mg PO BID [facility] - Labs Labs: 10/02/17 06:00 10/02/17 07:30 PT 15.2 SECONDS 10/02/17 07:30 INR 1.31 10/02/17 07:30 APTT 28.7 Seconds 10/02/17 07:30 - Constitutional Appears: Non-toxic, No Acute Distress, Chronically Ill - Head Exam Head Exam: ATRAUMATIC, NORMOCEPHALIC - Eye Exam Eye Exam: EOMI, PERRL Pupil Exam: NORMAL ACCOMODATION, PERRL - ENT Exam ENT Exam: Mucous Membranes Moist, Normal External Ear Exam, TM's Normal Bilaterally - Neck Exam Neck Exam: Full ROM, Normal Inspection - Respiratory Exam Respiratory Exam: Clear to Ausculation Bilateral, NORMAL BREATHING PATTERN. absent: Rales, Rhonchi, Wheezes Additional comments: Chest tube in place - Cardiovascular Exam Cardiovascular Exam: REGULAR RHYTHM, RRR, +S1, +S2 - GI/Abdominal Exam GI & Abdominal Exam: Soft, Normal Bowel Sounds. absent: Distended, Tenderness - Extremities Exam Extremities Exam: Full ROM, Normal Inspection - Neurological Exam Neurological Exam: Alert, Awake, CN II-XII Intact, Oriented x3 - Psychiatric Exam Psychiatric exam: Normal Affect, Normal Mood - Skin Skin Exam: Intact, Normal Color Assessment and Plan - Assessment and Plan (Free Text) Assessment: 76 yo male with large amount of weight loss (19 lbs) and multiple CT lung findings. The patient started on Ceftriaxone and Azithromycin. Must rule out malignancy. Check for Tuberculosis. Check PPD and Quantiferon. Consider surgery or IR evaluation for biopsy of suspicious areas. Supportive care. May need Heme/Onc evaluation as well. Check ESR and C-Reactive Protein. The most likely diagnosis given the current symptoms is malignancy. Given overall picture, Tuberculosis is a much less likely diagnosis. Malignancy is extremely likely. Overall [facility] prognosis is very poor. Discussed with family and the patient importance of a biopsy in determining diagnosis and available care/ treatment options. Restarted Rocephin yesterday for antibiotic treatment. Taken for lung biopsy today. Thank you for allowing me to participate in the care of the patient, we will follow with you.
--- NOTE | 2017-10-02 16:27 | CP.PCM.PN ---
<Kai Matos - Last Filed: 10/02/17 16:31> Subjective - Date & Time of Evaluation Date of Evaluation: 10/02/17 Time of Evaluation: 16:54 - Subjective Subjective: Kai Matos DO PGY1 Internal Medicine [facility] - Medicine Progress Note Pt. seen and evaluated at bedside this AM. Pt. underwent CT guided biopsy on . Had a pneumothorax during procedure; chest tube placed. Pt. complaining of tenderness near chest tube site and hemoptysis. Reported some SOB last night as well. No other issues voiced at this time. Objective - Vital Signs/Intake and Output Vital Signs (last 24 hours): Temp Pulse Resp BP Pulse Ox 97.9 F 81 18 109/64 94 L 10/02/17 06:00 10/02/17 10:18 10/02/17 06:00 10/02/17 10:18 10/02/17 06:00 Intake and Output: 10/02/17 10/02/17 06:59 18:59 Intake Total 300 Output Total 250 450 Balance -250 -150 - Medications Medications: Current Medications Benzonatate (Tessalon Perles) 100 mg PO Q8 [facility] Last Admin: 10/02/17 15:29 Dose: 100 mg Guaifenesin/Codeine Phosphate (Robitussin W/Codeine) 5 ml PO Q4H PRN PRN Reason: Cough and congestion Last Admin: 10/02/17 09:22 Dose: 5 ml Heparin Sodium/Sodium Chloride (Heparin 35211 Units/250ml 1/2 Normal Saline) 25 ,000 units in 250 mls @ 10.005 mls/hr IV .Q24H PRN; Protocol; 14.23 UNITS/KG/HR PRN Reason: ADJUST RATE PER PROTOCOL Last Admin: 09/29/17 13:15 Dose: 14.23 units/kg/hr, 10.005 mls/hr Ceftriaxone Sodium (Rocephin 1 Gram Ivpb) 1 gm in 100 mls @ 100 mls/hr IVPB DAILY [facility] PRN Reason: Protocol Last Admin: 10/02/17 09:22 Dose: 100 mls/hr Levalbuterol HCl (Xopenex) 0.63 mg IH Q2 PRN PRN Reason: Shortness of Breath Last Admin: 10/02/17 07:34 Dose: 0.63 mg Megestrol Acetate (Megace) 200 mg PO DAILY [facility] Last Admin: 10/02/17 09:22 Dose: 200 mg Metoprolol Tartrate (Lopressor) 25 mg PO BID [facility] Last Admin: 10/02/17 10:18 Dose: 25 mg Morphine Sulfate (Morphine) 2 mg IVP Q4H PRN PRN Reason: Pain, severe (8-10) Last Admin: 10/02/17 15:25 Dose: 2 mg Oxycodone/Acetaminophen (Percocet 5/325 Mg Tab) 1 tab PO Q6H PRN PRN Reason: Pain, moderate (4-7) Stop: 10/04/17 17:39 Pantoprazole Sodium (Protonix Ec Tab) 40 mg PO 0600 [facility] Last Admin: 10/02/17 06:01 Dose: 40 mg Sotalol HCl (Betapace) 80 mg PO BID [facility] - Labs Labs: 10/02/17 06:00 10/02/17 07:30 PT 15.2 SECONDS 10/02/17 07:30 INR 1.31 10/02/17 07:30 APTT 28.7 Seconds 10/02/17 07:30 - Constitutional Appears: Well, Cachectic - Head Exam Head Exam: ATRAUMATIC, NORMAL INSPECTION, NORMOCEPHALIC - Eye Exam Eye Exam: EOMI, PERRL. absent: Scleral icterus - ENT Exam ENT Exam: Mucous Membranes Moist - Respiratory Exam Respiratory Exam: Rhonchi, Wheezes. absent: Respiratory Distress Additional comments: Patient w/ crackles, ronchorus breath sounds, and diffuse wheezing on exam. Chest tube present on R side of chest wall; dressing CDI; draining serosanguinus fluid. Tenderness appreciated around chest tube. Pt. coughing up sanguinous phlegm without clots. - Cardiovascular Exam Cardiovascular Exam: RRR, +S1, +S2 - GI/Abdominal Exam GI & Abdominal Exam: Soft. 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 Plan: Pulmonary Malignancy s/p CT guided biopsy POD#[address] guided biopsy of lung mass on 10/02 PM; Some SOB and Hemoptysis after biopsy; Pneumothorax also present after biopsy. Chest tube placed by IR Dr. Toledo post procedure. Draining serosanguinous fluid this AM CXR on 10/02 post procedure read as increasing diffuse R sided infiltrate; no mention of pneumothorax CT chest 09/25: extensive mediastinal and hilar lymphadenopathy suspicious for underlying pulmonary malignancy. Lytic lesion at T7 consistent with metastatic disease. Scattered sclerotic lesions. Extensive R lower lobe pneumonia. Ct abd/pelvis 09/25: scattered osteoblastic lesions in multiple vertebral bodies , posterior elements and ribs. Age-indeterminate fracture of L4 superior end- plate, may be acute and/or pathologic. Low density lesion in anterolateral liver , metastasis suspected. Bone scan 09/26: findings consistent with bony metastatic disease Ct head 09/27: no evidence of metastatic disease, no acute intracranial findings PSA wnl Consults: ID Consulted (Dr. Coker), recs appreciated - C/w Ceftriaxone 1gm x5 days total 2/ 2 pneumothorax Pulm consulted (Dr. García), recs appreciated - c/w Xopenex Heme/onc consulted (Dr. Lomeli), recs appreciated - Pallative radiation w/ rad- onc; f/u biopsy esults; c/w megace Radiation onc consulted (Dr. Iqbal), recs appreciated - saw pt. this AM; spoke to family about pallative radiation. Radiation therapy plans made today. Post-Obstructive Pneumonia Pt. is still afebrile at this time; only complaining of cough w/ bloody sputum Will c/w ceftriaxone as above Will c/w Robitussin+Codeine PRN and Tessalon perles PRN C/w bronchodialator Xopenex as per pulm reccs Sputum cx 09/25: moderate gram pos cocci in clusters, moderate pmn wbcs, few gram variable rods Blood cx 09/25: negative U/a 09/25: trace blood Procalcitonin elevated 8.8; Legionella Ag neg CXR on admission 09/25: extensive alveolar infiltrate in R lower lobe consistent with pneumonia Repeat CXR 09/26: unchanged from prior study Mycoplasma PNA IgG positive - likely patient had a pneumonia in past. ID consulted (Dr. Coker), recs appreciated Pulm consulted (Dr. García), recs appreciated New-onset atrial fibrillation with rapid ventricular response Rapid response called on 09/26/17; pt had additional episode overnight that converted back to normal sinus rhythm after several minutes spontaneously Will continue to hold anticoagulation per IR reccs; Will convert to eliquis once no further interventions planned C/w metoprolol 25 mg PO bid CTA 09/28 neg for HI Cardio consulted (Dr. Chirinos), recs appreciated DVT/GI ppx: Heparin drip (held today)/Protonix Disposition plan: Given pneumothorax from biopsy, chest tube w/ serosanguinous output, and hemoptysis; we will continue to manage patient inpatient at this time. Patient seen, examined, and case discussed w/ attending physician Dr. Chaya Matos DO PGY1 Internal Medicine [facility] - Pager [phone] <Tru Larkin - Last Filed: 10/02/17 17:14> Objective - Vital Signs/Intake and Output Vital Signs (last 24 hours): Temp Pulse Resp BP Pulse Ox 97.9 F 81 18 109/64 94 L 10/02/17 06:00 10/02/17 10:18 10/02/17 06:00 10/02/17 10:18 10/02/17 06:00 Intake and Output: 10/02/17 10/02/17 06:59 18:59 Intake Total 300 Output Total 250 450 Balance -250 -150 - Medications Medications: Current Medications Benzonatate (Tessalon Perles) 100 mg PO Q8 [facility] Last Admin: 10/02/17 15:29 Dose: 100 mg Guaifenesin/Codeine Phosphate (Robitussin W/Codeine) 5 ml PO Q4H PRN PRN Reason: Cough and congestion Last Admin: 10/02/17 09:22 Dose: 5 ml Heparin Sodium/Sodium Chloride (Heparin 49775 Units/250ml 1/2 Normal Saline) 25 ,000 units in 250 mls @ 10.005 mls/hr IV .Q24H PRN; Protocol; 14.23 UNITS/KG/HR PRN Reason: ADJUST RATE PER PROTOCOL Last Admin: 09/29/17 13:15 Dose: 14.23 units/kg/hr, 10.005 mls/hr Ceftriaxone Sodium (Rocephin 1 Gram Ivpb) 1 gm in 100 mls @ 100 mls/hr IVPB DAILY [facility] PRN Reason: Protocol Last Admin: 10/02/17 09:22 Dose: 100 mls/hr Levalbuterol HCl (Xopenex) 0.63 mg IH Q2 PRN PRN Reason: Shortness of Breath Last Admin: 10/02/17 07:34 Dose: 0.63 mg Megestrol Acetate (Megace) 200 mg PO DAILY [facility] Last Admin: 10/02/17 09:22 Dose: 200 mg Metoprolol Tartrate (Lopressor) 25 mg PO BID [facility] Last Admin: 10/02/17 10:18 Dose: 25 mg Morphine Sulfate (Morphine) 2 mg IVP Q4H PRN PRN Reason: Pain, severe (8-10) Last Admin: 10/02/17 15:25 Dose: 2 mg Oxycodone/Acetaminophen (Percocet 5/325 Mg Tab) 1 tab PO Q6H PRN PRN Reason: Pain, moderate (4-7) Stop: 10/04/17 17:39 Pantoprazole Sodium (Protonix Ec Tab) 40 mg PO 0600 [facility] Last Admin: 10/02/17 06:01 Dose: 40 mg Sotalol HCl (Betapace) 80 mg PO BID [facility] - Labs Labs: 10/02/17 06:00 10/02/17 07:30 PT 15.2 SECONDS 10/02/17 07:30 INR 1.31 10/02/17 07:30 APTT 28.7 Seconds 10/02/17 07:30 Attending/Attestation - Attestation I have personally seen and examined this patient.: Yes I have fully participated in the care of the patient.: Yes I have reviewed all pertinent clinical information, including history, physical exam and plan: Yes Notes (Text): 10/02/17 17:11 76 year old male with past medical history of chronic smoking (quit ~5 years ago ) who presented with complaint of cough and shortness of breath. CT chest showed right lower lobe pneumonia, likely post obstructive, with diffuse moderate mediastinal lymphadenopathy and lesions suggestive of mets. CT abd/pelvis also revealed liver lesion and possible lumbar spine metastasis. Hem/Onc, Rad/Onc and pulmonary are following. Patient is s/p lung biopsy yesterday. Post-procedure had pneumothorax for which chest tube was placed. Continue with chest tube care as per IR. Patient also had paroxysmal afib for which he was started on metoprolol for rate control and heparin drip for anticoagulation. Anticoagulation is now on hold due to hemoptysis. Will discuss with cardiology and hematology before resuming. Tru Larkin MD Hospitalist.
--- NOTE | 2017-10-02 19:55 | PN ---
Copied To: Jeremiah Chirinos MD Attending MD: Jeremiah Chirinos MD DATE: 10/02/2017 CARDIOLOGY FOLLOWUP SUBJECTIVE: The patient is comfortable in bed. He is status post biopsy and radiation therapy. PHYSICAL EXAMINATION: VITAL SIGNS: Blood pressure is 109/64, the heart rate is in the 80s, normal sinus rhythm. NECK: Negative JVD. LUNGS: Without rales. HEART: Reveals S1 and S2. EXTREMITIES: Without edema. LABORATORY DATA: Magnesium is 2.5, phosphorus is 1.4, potassium is 4.9. Hemoglobin is 12.7. IMPRESSION: 1. Paroxysmal atrial fibrillation which the patient is in normal sinus rhythm. 2. Metastatic cancer. 3. Chronic obstructive pulmonary disease. 4. Resolution of dyspnea. PLAN: Given these findings, we will start the patient on sotalol in an attempt to keep the patient in normal sinus rhythm. The patient will need anticoagulation once we can document there is no bleeding from his biopsy. Jeremiah Chirinos MD
[2017-10-03] MEDS: Levalbuterol 0.63 MG/3 ML Inhal Soln UD IH PRN ×4 (00:55→16:45)
[2017-10-03] MEDS: guaiFENesin-Codeine 100-10mg/5ml Syrup (5 ml) UD PO PRN ×2 (01:58→11:12)
--- NOTE | 2017-10-03 03:24 | PN ---
Copied To: Lenka García MD Attending MD: Lenka García MD DATE: 10/02/2017 REFERRING PHYSICIAN: Lenka Owens MD SUBJECTIVE: He is lying in the bed at 45 degrees. Overnight events noted. Status post percutaneous lung biopsy and pneumothorax. Overnight started hemoptysis, so his heparin was stopped. Cough is still there. No nausea, no vomiting, no diarrhea. No leg pain or leg swelling. OBJECTIVE: GENERAL: In no distress. VITAL SIGNS: Temperature is 98, heart rate is 78, respiratory rate is 18, blood pressure 101/68, pulse ox 94% nasal cannula. HEENT: Moist mucous membranes. Has some dried blood. NECK: Supple. No JVD. LUNGS: Have scattered rhonchi, more on the right side. HEART: S1 and S2. ABDOMEN: Soft, nontender. No organomegaly. EXTREMITIES: No edema. NEUROLOGIC: Awake and alert. Follows simple command. MEDICATIONS: He is on sotalol 80 mg twice a day, heparin being discontinued, metoprolol tartrate 25 mg twice a day, Megace 200 mg daily, morphine 2 mg every 4 hours p.r.n., Percocet 5/325 one tablet every 6 hours, Protonix 40 mg daily, Robitussin with codeine 5 mL every 4 hours, Rocephin 1 g IV daily, Tessalon Perles 100 mg every 8 hours, Xopenex 0.63 every 2 hours p.r.n. LABORATORY DATA: Shows hemoglobin 12.7, hematocrit 38.1, WBC 10.7, platelet is 278. INR 1.31. PTT 29. Sodium 135, potassium 4.9, chloride 104, bicarbonate 23, BUN 9, creatinine 0.6, glucose 105, calcium 7.9, phosphorus 1.5, magnesium 2.5, AST 32, ALT 38, alk phos is 96. Albumin is 2.6. Microbiology, blood culture and sputum culture, there is no growth. Chest x-ray done today, which shows some interstitial infiltrate in the right lung. IMPRESSION AND PLAN: Lung mass, status post biopsy, ended up in pneumothorax. Had some hemoptysis while on anticoagulation. Has right lung some infiltrate, probably is aspirated blood. Also MRI and bone scan suggested of metastatic disease, chronic obstructive lung disease. Case discussed with Dr. Lomeli in detail. Agree with the present management. Discontinue anticoagulation. Keep atrial fibrillation rate control below 70. Continue cough suppressant. We will add Lyrica 25 mg twice a day. Gastric prophylaxis. Sequential compression device to lower extremity. Waiting for biopsy report. Follow up x-ray in the morning. Thank you and we will follow with you. Lenka García MD
[2017-10-03 06:34] LABS: INR 1.35; PROTHROMBIN TIME 15.6 SECONDS (9.4-12.5)
[2017-10-03 06:36] LABS: BASO # 0.04 K/mm3 (0.0-2.0); BASO % 0.4 % (0.0-3.0); EOS # 0.3 (0.0-0.7); EOS % 3.1 % (1.5-5.0); GRAN # 8.34 (1.4-6.5); GRAN % 77.2 % (50.0-68.0); HEMOGLOBIN 13.2 g/dL (14.0-18.0); LYMPH # 1.1 (1.2-3.4); LYMPH % 9.9 % (22.0-35.0); MEAN CELL VOLUME 85.1 fl (80.0-105.0); MEAN CORPUSCULAR HEMOGLOBIN 28.9 pg (25.0-35.0); MEAN CORPUSCULAR HGB CONC 33.9 g/dl (31.0-37.0); MEAN PLATELET VOLUME 9.6 fl (7.0-11.0); MONO % 9.4 % (1.0-6.0); RBC 4.57 10^6/uL (3.5-6.1); RED CELL DISTRIBUTION WIDTH 13.9 % (11.5-14.5); WHITE BLOOD COUNT 10.8 10^3/ul (4.5-11.0)
[2017-10-03 06:37] LABS: PARTIAL THROMBOPLASTIN TIME 27.7 Seconds (25.1-36.5)
[2017-10-03 06:58] LABS: ALB/GLOB RATIO 0.8 (1.1-1.8); ALBUMIN 2.6 g/dL (3.0-4.8); ALT/SGPT 51 U/L (7-56); AST/SGOT 39 U/L (17-59); BLOOD UREA NITROGEN 11 mg/dL (7-21); GFR AFRICAN-AMERICAN > 60; GFR NON-AFRICAN AMERICAN > 60
[2017-10-03] MEDS ORDERED: Sodium Phosphate 15 MMOLE in Sodium Chloride 0.9% 250 ML IVPB ONE (08:31)
--- NOTE | 2017-10-03 10:20 | RAD ---
Date of service: 10/03/2017 HISTORY: chest tube COMPARISON: 10/02/2017 FINDINGS: LUNGS: No change in diffuse alveolar infiltrate in the right lung. Right-sided chest tube remains in place at the right lung base PLEURA: No significant pleural effusion identified, no pneumothorax apparent. CARDIOVASCULAR: Normal. OSSEOUS STRUCTURES: No significant abnormalities. VISUALIZED UPPER ABDOMEN: Normal. OTHER FINDINGS: None. IMPRESSION: No change in diffuse alveolar infiltrate in the right lung. Right-sided chest tube remains in place at the right lung base
[2017-10-03] MEDS: Megestrol Acetate 40 mg/ml Cup PO SCH (11:14)
[2017-10-03] MEDS: cefTRIAXone 1 gm 1 GM/100 ML BAG IVPB SCH (11:15)
[2017-10-03 12:51] LABS: BLOOD UREA NITROGEN 12 mg/dL (7-21); CALCIUM 8.1 mg/dL (8.4-10.5); GFR AFRICAN-AMERICAN > 60; GFR NON-AFRICAN AMERICAN > 60
[2017-10-03 13:51] LABS: PARTIAL THROMBOPLASTIN TIME 28.7 Seconds (25.1-36.5); PROTHROMBIN TIME 15.2 SECONDS (9.4-12.5)
[2017-10-03] MEDS: Levalbuterol 0.63 MG/3 ML Inhal Soln UD IH SCH ×2 (14:13→20:15)
[2017-10-03] MEDS ORDERED: MethylPREDNISolone 40 mg Vial ONE (14:13)
[2017-10-03] MEDS: MethylPREDNISolone 40 mg Vial IVP SCH ×2 (14:13→21:52)
--- NOTE | 2017-10-03 14:31 | CP.PCM.PN ---
Subjective - Date & Time of Evaluation Date of Evaluation: 10/03/17 Time of Evaluation: 14:23 - Subjective Subjective: Sobeida Dukes, PGY2, Heme-Onc Progress Note for Dr Lomeli: Patient seen and examined at bedside. No acute events overnight. Patient reports that his hemoptysis is improving. Denies fevers, chills, nausea, vomiting, abdominal pain, leg swelling. Objective - Vital Signs/Intake and Output Vital Signs (last 24 hours): Temp Pulse Resp BP Pulse Ox 97.6 F 79 20 120/64 94 L 10/03/17 12:00 10/03/17 12:00 10/03/17 12:00 10/03/17 12:00 10/03/17 00:01 Intake and Output: 10/03/17 10/03/17 06:59 18:59 Intake Total 100 Output Total 200 Balance -100 - Medications Medications: Current Medications Benzonatate (Tessalon Perles) 100 mg PO Q8 [facility] Last Admin: 10/03/17 13:42 Dose: 100 mg Guaifenesin/Codeine Phosphate (Robitussin W/Codeine) 5 ml PO Q4H PRN PRN Reason: Cough and congestion Last Admin: 10/03/17 11:12 Dose: 5 ml Heparin Sodium/Sodium Chloride (Heparin 69215 Units/250ml 1/2 Normal Saline) 25 ,000 units in 250 mls @ 10.005 mls/hr IV .Q24H PRN; Protocol; 14.23 UNITS/KG/HR PRN Reason: ADJUST RATE PER PROTOCOL Last Admin: 09/29/17 13:15 Dose: 14.23 units/kg/hr, 10.005 mls/hr Ceftriaxone Sodium (Rocephin 1 Gram Ivpb) 1 gm in 100 mls @ 100 mls/hr IVPB DAILY [facility] PRN Reason: Protocol Last Admin: 10/03/17 11:15 Dose: 100 mls/hr Sodium Phosphate 15 mmole/ (Sodium Chloride) 255 mls @ 42.5 mls/hr IVPB ONCE ONE Stop: 10/03/17 14:30 Last Admin: 10/03/17 11:15 Dose: 42.5 mls/hr Levalbuterol HCl (Xopenex) 0.63 mg IH Q2 PRN PRN Reason: Shortness of Breath Last Admin: 10/03/17 07:53 Dose: 0.63 mg Levalbuterol HCl (Xopenex) 0.63 mg IH [id number] [facility] Last Admin: 10/03/17 14:13 Dose: 0.63 mg Megestrol Acetate (Megace) 200 mg PO DAILY [facility] Last Admin: 10/03/17 11:14 Dose: 200 mg Methylprednisolone (Solu-Medrol) 40 mg IVP Q6H [facility] Last Admin: 10/03/17 14:13 Dose: Not Given Metoprolol Tartrate (Lopressor) 25 mg PO BID [facility] Last Admin: 10/03/17 12:23 Dose: Not Given Morphine Sulfate (Morphine) 2 mg IVP Q4H PRN PRN Reason: Pain, severe (8-10) Last Admin: 10/02/17 23:22 Dose: 2 mg Oxycodone/Acetaminophen (Percocet 5/325 Mg Tab) 1 tab PO Q6H PRN PRN Reason: Pain, moderate (4-7) Stop: 10/04/17 17:39 Pantoprazole Sodium (Protonix Ec Tab) 40 mg PO 0600 [facility] Last Admin: 10/02/17 06:01 Dose: 40 mg Sotalol HCl (Betapace) 80 mg PO BID [facility] Last Admin: 10/03/17 11:13 Dose: 80 mg - Labs Labs: 10/03/17 06:00 10/03/17 12:30 PT 15.6 SECONDS (9.4-12.5) H 10/03/17 06:00 INR 1.35 10/03/17 06:00 APTT 27.7 Seconds (25.1-36.5) 10/03/17 06:00 - Additional Findings Additional findings: - Constitutional Appears: Older Than Stated Age, Cachectic, Chronically Ill - Head Exam Head Exam: ATRAUMATIC, NORMOCEPHALIC - Eye Exam Eye Exam: EOMI, PERRL. absent: Conjunctival injection, Nystagmus, Scleral icterus Pupil Exam: NORMAL ACCOMODATION, PERRL. absent: Irregular, Miosis, Unequal - ENT Exam ENT Exam: Mucous Membranes moist - Neck Exam Neck Exam: Full ROM - Respiratory Exam Respiratory Exam: Decreased Breath Sounds, Rhonchi, NORMAL BREATHING PATTERN. absent: Stridor - Cardiovascular Exam Cardiovascular Exam: REGULAR RHYTHM, RRR, +S1, +S2. absent: Murmur right sided chest tube in place, draining SS fluid - GI/Abdominal Exam GI & Abdominal Exam: Soft, Normal Bowel Sounds. absent: Guarding, Rigid, Tenderness, Mass, Organomegaly - Extremities Exam Extremities Exam: Full ROM, Normal Inspection. absent: Calf Tenderness, Pedal Edema - Back Exam Back Exam: NORMAL INSPECTION - Neurological Exam Neurological Exam: Alert, Awake, Oriented x3 - Psychiatric Exam Psychiatric exam: Depressed - Skin Skin Exam: Normal Color, Warm Assessment and Plan - Assessment and Plan (Free Text) Assessment: 76 year old male with PMH gastric ulcer, gastritis, admitted for RLL pneumonia, found to have extensive mediastinal and hilar adenopathy and lytic lesions at T7 , other vertebral bodies and liver mets. Patient's hospital course complicated by onset of afib, started on heparin drip and cardizem. Patient underwent CT guided biopsy of hilar mass 10/01, has right sided chest tube. Patient developed hemoptysis post procedure, started on radiation treatments urgently. Discussed with pathologist Dr Cage regarding patient's biopsy, like small cell lung carcinoma, will await for official pathology reports: - C/w Megace - c/w cardizem for afib - c/w IV antibiotics - Hold anticoagulation for afib due to hemoptysis. Consult with Cardio when warfarin/heparin needs to be resumed - Can transfer to TCU after 3 radiation treatments - Dr Lomeli spoke to son regarding patient's clinical status - monitor Case seen and discussed with Dr Lomeli.
--- NOTE | 2017-10-03 15:34 | CP.PCM.PN ---
Subjective - Date & Time of Evaluation Date of Evaluation: 10/03/17 Time of Evaluation: 13:00 - Subjective Subjective: Infectious Disease Follow Up: October 03, 2017 76 yo male with presentation of SOB and cough productive of sputum. The patient has had symptoms for the past 3 weeks. He was recently in [place] for his son's wedding. Patient states that "food does not taste the same". He has lost [address] scan showing extensive right lower lobe pneumonia but what is more concerning is the extensive mediastinal and hilar adenopathy with lytic lesion at T7. The patient has been started on IV Rocephin and Azithromycin for antibiotic care. No WBC. Procalcitonin of 8.8 at this time. New onset Atrial Fibrillation two nights ago... transferred to telemetry. The family and the patient have been refusing biopsy at this time. Emphasized to the patient and present family members (daughter and son-in-law) importance of the biopsy in determining diagnosis and type of treatment options available for the patient. Patient states that he is not sleeping well in the hospital. Noted the patient with Atrial fibrillation last night. Taken for lung biopsy this week. The patient with hemoptysis. Seen by radiation oncology Dr. Iqbal for palliative radiation evaluation. Hemoptysis improving. Pain in chest/lungs subsiding. Objective - Vital Signs/Intake and Output Vital Signs (last 24 hours): Temp Pulse Resp BP Pulse Ox 97.6 F 79 20 120/64 94 L 10/03/17 12:00 10/03/17 12:00 10/03/17 12:00 10/03/17 12:00 10/03/17 00:01 Intake and Output: 10/03/17 10/03/17 06:59 18:59 Intake Total 100 Output Total 200 Balance -100 - Medications Medications: Current Medications Benzonatate (Tessalon Perles) 100 mg PO Q8 [facility] Last Admin: 10/03/17 13:42 Dose: 100 mg Guaifenesin/Codeine Phosphate (Robitussin W/Codeine) 5 ml PO Q4H PRN PRN Reason: Cough and congestion Last Admin: 10/03/17 11:12 Dose: 5 ml Heparin Sodium/Sodium Chloride (Heparin 74514 Units/250ml 1/2 Normal Saline) 25 ,000 units in 250 mls @ 10.005 mls/hr IV .Q24H PRN; Protocol; 14.23 UNITS/KG/HR PRN Reason: ADJUST RATE PER PROTOCOL Last Admin: 09/29/17 13:15 Dose: 14.23 units/kg/hr, 10.005 mls/hr Ceftriaxone Sodium (Rocephin 1 Gram Ivpb) 1 gm in 100 mls @ 100 mls/hr IVPB DAILY [facility] PRN Reason: Protocol Last Admin: 10/03/17 11:15 Dose: 100 mls/hr Levalbuterol HCl (Xopenex) 0.63 mg IH Q2 PRN PRN Reason: Shortness of Breath Last Admin: 10/03/17 07:53 Dose: 0.63 mg Levalbuterol HCl (Xopenex) 0.63 mg IH [id number] [facility] Last Admin: 10/03/17 14:13 Dose: 0.63 mg Megestrol Acetate (Megace) 200 mg PO DAILY [facility] Last Admin: 10/03/17 11:14 Dose: 200 mg Methylprednisolone (Solu-Medrol) 40 mg IVP Q6H [facility] Last Admin: 10/03/17 14:13 Dose: Not Given Metoprolol Tartrate (Lopressor) 25 mg PO BID [facility] Last Admin: 10/03/17 12:23 Dose: Not Given Morphine Sulfate (Morphine) 2 mg IVP Q4H PRN PRN Reason: Pain, severe (8-10) Last Admin: 10/02/17 23:22 Dose: 2 mg Oxycodone/Acetaminophen (Percocet 5/325 Mg Tab) 1 tab PO Q6H PRN PRN Reason: Pain, moderate (4-7) Stop: 10/04/17 17:39 Pantoprazole Sodium (Protonix Ec Tab) 40 mg PO 0600 [facility] Last Admin: 10/02/17 06:01 Dose: 40 mg Sotalol HCl (Betapace) 80 mg PO BID [facility] Last Admin: 10/03/17 11:13 Dose: 80 mg - Labs Labs: 10/03/17 06:00 10/03/17 12:30 PT 15.6 SECONDS (9.4-12.5) H 10/03/17 06:00 INR 1.35 10/03/17 06:00 APTT 27.7 Seconds (25.1-36.5) 10/03/17 06:00 - Constitutional Appears: Non-toxic, No Acute Distress, Chronically Ill - Head Exam Head Exam: ATRAUMATIC, NORMOCEPHALIC - Eye Exam Eye Exam: EOMI, PERRL Pupil Exam: NORMAL ACCOMODATION, PERRL - ENT Exam ENT Exam: Mucous Membranes Moist, Normal External Ear Exam, TM's Normal Bilaterally - Neck Exam Neck Exam: Full ROM, Normal Inspection - Respiratory Exam Respiratory Exam: Decreased Breath Sounds, Clear to Ausculation Bilateral, NORMAL BREATHING PATTERN. absent: Rales, Rhonchi, Wheezes - Cardiovascular Exam Cardiovascular Exam: REGULAR RHYTHM, RRR, +S1, +S2 - GI/Abdominal Exam GI & Abdominal Exam: Soft, Normal Bowel Sounds. absent: Distended, Tenderness - Extremities Exam Extremities Exam: Full ROM, Normal Inspection - Neurological Exam Neurological Exam: Alert, Awake, CN II-XII Intact, Oriented x3 - Psychiatric Exam Psychiatric exam: Normal Affect, Normal Mood - Skin Skin Exam: Intact, Normal Color Assessment and Plan - Assessment and Plan (Free Text) Assessment: 76 yo male with large amount of weight loss (19 lbs) and multiple CT lung findings. The patient started on Ceftriaxone and Azithromycin. Must rule out malignancy. Check for Tuberculosis. Check PPD and Quantiferon. Consider surgery or IR evaluation for biopsy of suspicious areas. Supportive care. May need Heme/Onc evaluation as well. Check ESR and C-Reactive Protein. The most likely diagnosis given the current symptoms is malignancy. Given overall picture, Tuberculosis is a much less likely diagnosis. Malignancy is extremely likely. Overall usp prognosis is very poor. Discussed with family and the patient importance of a biopsy in determining diagnosis and available care/ treatment options. On Rocephin for antibiotic treatment. Taken for lung/liver biopsy. Pathology pending. Patient has chest tube in place for pneumothorax from procedure. Thank you for allowing me to participate in the care of the patient, we will follow with you.
--- NOTE | 2017-10-03 17:09 | CP.PCM.PN ---
<Kai Matos - Last Filed: 10/03/17 17:05> Subjective - Date & Time of Evaluation Date of Evaluation: 10/03/17 Time of Evaluation: 17:06 - Subjective Subjective: Kai Matos DO PGY1 Internal Medicine Press Writer - Hospital Progress Note Pt. seen and examined this AM at bedside; still reports tenderness from chest tube site. Stated hemoptysis is stable from yesterday; still reports some SOB. Received radiation yesterday denies any issue w/ radiation. Denies any issue w/ BM at this time; had last BM night prior. Dr. Toledo to pull out chest tube today. Objective - Vital Signs/Intake and Output Vital Signs (last 24 hours): Temp Pulse Resp BP Pulse Ox 97.6 F 66 20 120/64 94 L 10/03/17 12:00 10/03/17 14:00 10/03/17 12:00 10/03/17 12:00 10/03/17 00:01 Intake and Output: 10/03/17 10/03/17 06:59 18:59 Intake Total 100 Output Total 200 Balance -100 - Medications Medications: Current Medications Benzonatate (Tessalon Perles) 100 mg PO Q8 [facility] Last Admin: 10/03/17 13:42 Dose: 100 mg Guaifenesin/Codeine Phosphate (Robitussin W/Codeine) 5 ml PO Q4H PRN PRN Reason: Cough and congestion Last Admin: 10/03/17 11:12 Dose: 5 ml Heparin Sodium/Sodium Chloride (Heparin 91214 Units/250ml 1/2 Normal Saline) 25 ,000 units in 250 mls @ 10.005 mls/hr IV .Q24H PRN; Protocol; 14.23 UNITS/KG/HR PRN Reason: ADJUST RATE PER PROTOCOL Last Admin: 09/29/17 13:15 Dose: 14.23 units/kg/hr, 10.005 mls/hr Ceftriaxone Sodium (Rocephin 1 Gram Ivpb) 1 gm in 100 mls @ 100 mls/hr IVPB DAILY [facility] PRN Reason: Protocol Last Admin: 10/03/17 11:15 Dose: 100 mls/hr Levalbuterol HCl (Xopenex) 0.63 mg IH Q2 PRN PRN Reason: Shortness of Breath Last Admin: 10/03/17 16:45 Dose: 0.63 mg Levalbuterol HCl (Xopenex) 0.63 mg IH [id number] [facility] Last Admin: 10/03/17 14:13 Dose: 0.63 mg Megestrol Acetate (Megace) 200 mg PO DAILY [facility] Last Admin: 10/03/17 11:14 Dose: 200 mg Methylprednisolone (Solu-Medrol) 40 mg IVP Q6H [facility] Last Admin: 10/03/17 14:13 Dose: Not Given Metoprolol Tartrate (Lopressor) 25 mg PO BID [facility] Last Admin: 10/03/17 12:23 Dose: Not Given Morphine Sulfate (Morphine) 2 mg IVP Q4H PRN PRN Reason: Pain, severe (8-10) Last Admin: 10/02/17 23:22 Dose: 2 mg Oxycodone/Acetaminophen (Percocet 5/325 Mg Tab) 1 tab PO Q6H PRN PRN Reason: Pain, moderate (4-7) Stop: 10/04/17 17:39 Pantoprazole Sodium (Protonix Ec Tab) 40 mg PO 0600 [facility] Last Admin: 10/02/17 06:01 Dose: 40 mg Sotalol HCl (Betapace) 80 mg PO BID [facility] Last Admin: 10/03/17 11:13 Dose: 80 mg - Labs Labs: 10/03/17 06:00 10/03/17 12:30 PT 15.6 SECONDS (9.4-12.5) H 10/03/17 06:00 INR 1.35 10/03/17 06:00 APTT 27.7 Seconds (25.1-36.5) 10/03/17 06:00 Physical Exam: - Constitutional Appears: Well, Cachectic - Head Exam Head Exam: ATRAUMATIC, NORMAL INSPECTION, NORMOCEPHALIC - Eye Exam Eye Exam: EOMI, PERRL. absent: Scleral icterus - ENT Exam ENT Exam: Mucous Membranes Moist - Respiratory Exam Respiratory Exam: Rhonchi, Wheezes. absent: Respiratory Distress Additional comments: Patient sitting up in bed w/ some pain on breaths. Has some crackles and rhonchorus breath sounds diffusely. Also has some diffuse wheezing. Chest tube present on R side of chest wall; dressing CDI; Serosanguinous fluid in drain appreciated. Patient appears to be coughing less than the day before; however sanguinous sputum still appreciated. - Cardiovascular Exam Cardiovascular Exam: RRR, +S1, +S2 - GI/Abdominal Exam GI & Abdominal Exam: Soft. 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 Plan: Pulmonary Malignancy s/p CT guided biopsy POD#2 CT chest 09/25: extensive mediastinal and hilar lymphadenopathy suspicious for underlying pulmonary malignancy. Lytic lesion at T7 consistent with metastatic disease. Scattered sclerotic lesions. Extensive R lower lobe pneumonia. Ct abd/ pelvis 09/25: scattered osteoblastic lesions in multiple vertebral bodies, posterior elements and ribs. Age-indeterminate fracture of L4 superior end-plate , may be acute and/or pathologic. Low density lesion in anterolateral liver, metastasis suspected. Ct head 09/27: no evidence of metastatic disease, no acute intracranial findings Bone scan 09/26: findings consistent with bony metastatic disease Patient underwent CT guided biopsy of lung mass on 10/01 PM; Some SOB and Hemoptysis after biopsy; Pneumothorax also present after biopsy. Chest tube placed by IR Dr. Toledo post procedure. Chest tube to be removed this afternoon Still Draining serosanguinous fluid this AM CXR on 10/03 still read w/ diffuse R sided infiltrates without any pneumothorax CXR on 10/02 post procedure read as increasing diffuse R sided infiltrate; no mention of pneumothorax Consults: ID Consulted (Dr. Coker), recs appreciated - C/w Ceftriaxone 1gmQD - Day 2/5 for pneumothorax Pulm consulted (Dr. García), recs appreciated - c/w Xopenex Q6H , Solumedrol 40mg Q6H Heme/onc consulted (Dr. Lomeli), recs appreciated - Pallative radiation w/ rad- onc; f/u biopsy esults; c/w megace; Discussed with pathologist Dr Cage regarding patient's biopsy, like small cell lung carcinoma, will await for official pathology reports: Radiation onc consulted (Dr. Iqbal), recs appreciated - saw pt. this AM; spoke to family about pallative radiation. Radiation therapy plans made today. Post-Obstructive Pneumonia Pt. is still afebrile at this time; only complaining of cough w/ bloody sputum Will c/w ceftriaxone as above Will c/w Robitussin+Codeine PRN and Tessalon perles PRN C/w bronchodialator Xopenex as per pulm reccs Started Solumedrol 40 Q6H Sputum cx 09/25: moderate gram pos cocci in clusters, moderate pmn wbcs, few gram variable rods Blood cx 09/25: negative U/a 09/25: trace blood Procalcitonin elevated 8.8; Legionella Ag neg CXR on admission 09/25: extensive alveolar infiltrate in R lower lobe consistent with pneumonia Repeat CXR 09/26: unchanged from prior study Mycoplasma PNA IgG positive - likely patient had a pneumonia in past. ID consulted (Dr. Coker), recs appreciated Pulm consulted (Dr. García), recs appreciated New-onset atrial fibrillation with rapid ventricular response Rapid response called on 09/26/17; pt had additional episode overnight that converted back to normal sinus rhythm after several minutes spontaneously Will continue to hold anticoagulation per IR reccs; Will convert to eliquis once hemoptysis subsides, and no further intervention planned Started Sotalol 80 BID for improved rate/rhythm control; patient's rate remained between 60-70 throughout the day today CTA 09/28 neg for VT Cardio consulted (Dr. Chirinos), recs appreciated Electrolyte abnormalities HyperKalemic/ Hypophos / Hypocalcemic Electrolytes repleted today; follow up w/ AM labs DVT/GI ppx: Heparin drip (held today)/Protonix Disposition plan: Given pneumothorax from biopsy, chest tube w/ serosanguinous output, and hemoptysis; we will continue to manage patient inpatient at this time. Patient seen, examined, and case discussed w/ attending physician Dr. Chaya Matos DO PGY1 Internal Medicine Press Writer - Pager [phone] <Tru Larkin - Last Filed: 10/04/17 06:57> Objective - Vital Signs/Intake and Output Vital Signs (last 24 hours): Temp Pulse Resp BP Pulse Ox 98.6 F 69 18 103/58 L 96 10/04/17 06:00 10/04/17 06:00 10/04/17 06:00 10/04/17 06:00 10/04/17 06:00 Intake and Output: 10/03/17 10/04/17 18:59 06:59 Intake Total 1190 480 Output Total 1370 500 Balance -180 -20 - Medications Medications: Current Medications Benzonatate (Tessalon Perles) 100 mg PO Q8 [facility] Last Admin: 10/04/17 05:11 Dose: 100 mg Guaifenesin/Codeine Phosphate (Robitussin W/Codeine) 5 ml PO Q4H PRN PRN Reason: Cough and congestion Last Admin: 10/03/17 11:12 Dose: 5 ml Heparin Sodium/Sodium Chloride (Heparin 65564 Units/250ml 1/2 Normal Saline) 25 ,000 units in 250 mls @ 10.005 mls/hr IV .Q24H PRN; Protocol; 14.23 UNITS/KG/HR PRN Reason: ADJUST RATE PER PROTOCOL Last Admin: 09/29/17 13:15 Dose: 14.23 units/kg/hr, 10.005 mls/hr Ceftriaxone Sodium (Rocephin 1 Gram Ivpb) 1 gm in 100 mls @ 100 mls/hr IVPB DAILY [facility] PRN Reason: Protocol Last Admin: 10/03/17 11:15 Dose: 100 mls/hr Levalbuterol HCl (Xopenex) 0.63 mg IH Q2 PRN PRN Reason: Shortness of Breath Last Admin: 10/03/17 16:45 Dose: 0.63 mg Levalbuterol HCl (Xopenex) 0.63 mg IH [id number] [facility] Last Admin: 10/04/17 02:15 Dose: 0.63 mg Megestrol Acetate (Megace) 200 mg PO DAILY [facility] Last Admin: 10/03/17 11:14 Dose: 200 mg Methylprednisolone (Solu-Medrol) 40 mg IVP Q6 [facility] Last Admin: 10/04/17 05:11 Dose: 40 mg Metoprolol Tartrate (Lopressor) 25 mg PO BID [facility] Last Admin: 10/03/17 12:23 Dose: Not Given Morphine Sulfate (Morphine) 2 mg IVP Q4H PRN PRN Reason: Pain, severe (8-10) Last Admin: 10/02/17 23:22 Dose: 2 mg Oxycodone/Acetaminophen (Percocet 5/325 Mg Tab) 1 tab PO Q6H PRN PRN Reason: Pain, moderate (4-7) Stop: 10/04/17 17:39 Last Admin: 10/03/17 18:18 Dose: 1 tab Pantoprazole Sodium (Protonix Ec Tab) 40 mg PO 0600 [facility] Last Admin: 10/04/17 05:11 Dose: 40 mg Sotalol HCl (Betapace) 80 mg PO BID [facility] Last Admin: 10/03/17 17:19 Dose: 80 mg - Labs Labs: 10/03/17 06:00 10/03/17 12:30 PT 15.6 SECONDS (9.4-12.5) H 10/03/17 06:00 INR 1.35 10/03/17 06:00 APTT 27.7 Seconds (25.1-36.5) 10/03/17 06:00 Attending/Attestation - Attestation I have personally seen and examined this patient.: Yes I have fully participated in the care of the patient.: Yes I have reviewed all pertinent clinical information, including history, physical exam and plan: Yes Notes (Text): 10/03/17 76 year old male with past medical history of chronic smoking (quit ~5 years ago ) who presented with complaint of cough and shortness of breath. CT chest showed right lower lobe pneumonia, likely post obstructive, with diffuse moderate mediastinal lymphadenopathy and lesions suggestive of mets. CT abd/pelvis also revealed liver lesion and possible lumbar spine metastasis. Hem/Onc, Rad/Onc, ID and pulmonary are following. Patient is s/p lung biopsy earlier this week. Biopsy is pending. Post- procedure had pneumothorax for which chest tube was placed. Continue with chest tube care as per IR. IR follow up today for possible chest tube removal. Continue with antibiotics as per ID and steroids as per pulmonary. Patient also had paroxysmal afib for which he is on sotalol for rate control and heparin drip for anticoagulation. Anticoagulation is now on hold due to hemoptysis. Will discuss with cardiology and hematology before resuming. Will replete and repeat lytes. Tru Larkin MD Hospitalist.
--- NOTE | 2017-10-03 17:13 | PN ---
Copied To: Lenka García MD Attending MD: Lenka García MD DATE: 10/03/2017 PULMONARY PROGRESS NOTE REFERRING PHYSICIAN: Lenka Owens MD. SUBJECTIVE: He is lying in the bed, head at 45 degrees, complaining about cough and some wheezing. Still having some blood-tinged sputum, right-sided chest tube. No air leak noted. No abdominal pain. No dysuria. No leg pain or leg swelling. OBJECTIVE: GENERAL: In no acute distress. VITAL SIGNS: Temperature is 98, heart rate is 79, respiratory rate is 20, blood pressure 120/64, pulse ox 94% on nasal cannula. HEENT: Moist mucous membrane. No ulcer or thrush noted. NECK: Supple. No JVD. LUNGS: Have scattered rhonchi and few wheezing. HEART: S1 and S2. ABDOMEN: Soft, nontender. No organomegaly. EXTREMITIES: No edema. NEUROLOGICAL: Awake and alert. Follows simple commands. MEDICATIONS: He is on Betapace 80 mg twice a day, metoprolol tartrate 25 mg twice a day, Megace 200 mg daily, morphine 2 mg IV every 4 hours p.r.n., Percocet 5/325 one tab every 6 hours p.r.n., Protonix 40 mg daily, Robitussin 5 mL every 4 hours p.r.n., Rocephin 1 g daily, Solu-Medrol 40 mg every 6 hours added now, Tessalon Perles 100 mg every 8 hours, Xopenex inhaled every 2 hours p.r.n. LABORATORY DATA: Shows hemoglobin 13.2, hematocrit 38.9, WBC 10.8, platelet count is 307. INR 1.35, PTT 28. Sodium 133, potassium 4.8, chloride 105, bicarbonate is 21, BUN 12, creatinine 0.6, glucose is 128, calcium is 8.1. Microbiology: Blood culture, sputum culture have been negative. Chest x-ray shows some interstitial alveolar infiltrate. No pneumothorax. IMPRESSION AND PLAN: Lung mass, status post biopsy and pneumothorax requiring chest tube, also had hemoptysis, atrial fibrillation, had been on heparin, which has been discontinued, chronic obstructive lung disease, may have a metastatic lung cancer. Pulmonary point of view, he is doing okay. Spoke to nursing staff. Added Solu-Medrol. Added Xopenex round the clock every 6 hours. Keep head at 45 degrees. Lyrica started yesterday for cough. Continue rest of the cough suppressor. Waiting for pathology report. Thank you and we will follow with you. Lenka García MD
--- NOTE | 2017-10-03 18:51 | PN ---
Copied To: Jeremiah Chirinos MD Attending MD: Jeremiah Chirinos MD DATE: 10/03/2017 SUBJECTIVE: The patient is status post pneumothorax after a CT-guided biopsy. The patient remains in normal sinus rhythm, he is currently on sotalol. PHYSICAL EXAMINATION: VITAL SIGNS: Stable. NECK: Negative JVD. LUNGS: Without rales. HEART: Reveals S1, S2. EXTREMITIES: Without edema. LABORATORY DATA: Hemoglobin is 13.2. Chemistries, BUN and creatinine unremarkable. IMPRESSION: 1. Pneumothorax after biopsy. 2. Pneumonia. 3. Paroxysmal atrial fibrillation, which the patient remains in normal sinus rhythm. 4. Metastatic cancer. PLAN: Given these findings, we will continue the patient on sotalol. His heparin is off given his recent biopsy and pneumothorax. Jeremiah Chirinos MD
[2017-10-04] MEDS: Levalbuterol 0.63 MG/3 ML Inhal Soln UD IH SCH ×4 (02:15→19:27)
[2017-10-04] MEDS: MethylPREDNISolone 40 mg Vial IVP SCH ×3 (05:11→17:16)
[2017-10-04] MEDS: Pantoprazole 40 mg EC Tab PO SCH (05:11)
[2017-10-04 06:54] LABS: BASO # 0.01 K/mm3 (0.0-2.0); BASO % 0.1 % (0.0-3.0); GRAN # 6.58 (1.4-6.5); GRAN % 86.1 % (50.0-68.0); HEMOGLOBIN 13.1 g/dL (14.0-18.0); LYMPH # 0.6 (1.2-3.4); LYMPH % 7.7 % (22.0-35.0); MEAN CELL VOLUME 83.7 fl (80.0-105.0); MEAN CORPUSCULAR HEMOGLOBIN 29.2 pg (25.0-35.0); MEAN CORPUSCULAR HGB CONC 34.8 g/dl (31.0-37.0); MEAN PLATELET VOLUME 9.9 fl (7.0-11.0); MONO # 0.5 (0.1-0.6); MONO % 6.1 % (1.0-6.0); RBC 4.49 10^6/uL (3.5-6.1); RED CELL DISTRIBUTION WIDTH 13.9 % (11.5-14.5); WHITE BLOOD COUNT 7.7 10^3/ul (4.5-11.0)
[2017-10-04 07:09] LABS: PARTIAL THROMBOPLASTIN TIME 26.2 Seconds (25.1-36.5)
[2017-10-04 07:10] LABS: INR 1.33; PROTHROMBIN TIME 15.4 SECONDS (9.4-12.5)
[2017-10-04 07:30] LABS: ALB/GLOB RATIO 0.9 (1.1-1.8); ALT/SGPT 72 U/L (7-56); AST/SGOT 63 U/L (17-59); BLOOD UREA NITROGEN 15 mg/dL (7-21); CALCIUM 8.2 mg/dL (8.4-10.5); GFR AFRICAN-AMERICAN > 60; GFR NON-AFRICAN AMERICAN > 60
[2017-10-04] MEDS ORDERED: Potassium & Sodium Phosphate PO STA (08:19)
--- NOTE | 2017-10-04 08:41 | CP.PCM.PN ---
<Kai Matos - Last Filed: 10/04/17 16:55> Subjective - Date & Time of Evaluation Date of Evaluation: 10/04/17 Time of Evaluation: 08:40 - Subjective Subjective: Kai Matos DO PGY1 Internal Medicine [facility] - Hospital Progress Note Patient was seen this AM at bedside. Decreased hemoptysis reported this AM by nursing and patient; however patient still having some bloody sputum. His chest tube out last night, and he is reporting minimal tenderness, as well as minimal SOB. Reports constipation x2 days now, otherwise remainder of 12 system ROS was negative. Objective - Vital Signs/Intake and Output Vital Signs (last 24 hours): Temp Pulse Resp BP Pulse Ox 98.6 F 69 18 103/58 L 96 10/04/17 06:00 10/04/17 06:00 10/04/17 06:00 10/04/17 06:00 10/04/17 06:00 Intake and Output: 10/04/17 10/04/17 06:59 18:59 Intake Total 480 Output Total 500 Balance -20 - Medications Medications: Current Medications Benzonatate (Tessalon Perles) 100 mg PO Q8 [facility] Last Admin: 10/04/17 05:11 Dose: 100 mg Guaifenesin/Codeine Phosphate (Robitussin W/Codeine) 5 ml PO Q4H PRN PRN Reason: Cough and congestion Last Admin: 10/03/17 11:12 Dose: 5 ml Heparin Sodium/Sodium Chloride (Heparin 27283 Units/250ml 1/2 Normal Saline) 25 ,000 units in 250 mls @ 10.005 mls/hr IV .Q24H PRN; Protocol; 14.23 UNITS/KG/HR PRN Reason: ADJUST RATE PER PROTOCOL Last Admin: 09/29/17 13:15 Dose: 14.23 units/kg/hr, 10.005 mls/hr Ceftriaxone Sodium (Rocephin 1 Gram Ivpb) 1 gm in 100 mls @ 100 mls/hr IVPB DAILY [facility] PRN Reason: Protocol Last Admin: 10/03/17 11:15 Dose: 100 mls/hr Levalbuterol HCl (Xopenex) 0.63 mg IH Q2 PRN PRN Reason: Shortness of Breath Last Admin: 10/03/17 16:45 Dose: 0.63 mg Levalbuterol HCl (Xopenex) 0.63 mg IH [id number] [facility] Last Admin: 10/04/17 07:44 Dose: 0.63 mg Megestrol Acetate (Megace) 200 mg PO DAILY [facility] Last Admin: 10/03/17 11:14 Dose: 200 mg Methylprednisolone (Solu-Medrol) 40 mg IVP Q6 [facility] Last Admin: 10/04/17 05:11 Dose: 40 mg Metoprolol Tartrate (Lopressor) 25 mg PO BID [facility] Last Admin: 10/03/17 12:23 Dose: Not Given Morphine Sulfate (Morphine) 2 mg IVP Q4H PRN PRN Reason: Pain, severe (8-10) Last Admin: 10/02/17 23:22 Dose: 2 mg Oxycodone/Acetaminophen (Percocet 5/325 Mg Tab) 1 tab PO Q6H PRN PRN Reason: Pain, moderate (4-7) Stop: 10/04/17 17:39 Last Admin: 10/03/17 18:18 Dose: 1 tab Pantoprazole Sodium (Protonix Ec Tab) 40 mg PO 0600 [facility] Last Admin: 10/04/17 05:11 Dose: 40 mg Sotalol HCl (Betapace) 80 mg PO BID [facility] Last Admin: 10/03/17 17:19 Dose: 80 mg - Labs Labs: 10/04/17 05:45 10/04/17 05:45 PT 15.4 SECONDS (9.4-12.5) H 10/04/17 05:45 INR 1.33 10/04/17 05:45 APTT 26.2 Seconds (25.1-36.5) 10/04/17 05:45 Physical Exam: - Constitutional Appears: Well, Cachectic - Head Exam Head Exam: ATRAUMATIC, NORMAL INSPECTION, NORMOCEPHALIC - Eye Exam Eye Exam: EOMI, PERRL. absent: Scleral icterus - ENT Exam ENT Exam: Mucous Membranes Moist - Respiratory Exam Respiratory Exam: Rhonchi, Wheezes. absent: Respiratory Distress Additional comments: Patient is able to situp in bed under his own strength without any pain or grimacing. Does not appear to be dyspneic or in respiratory distress at this time. Some coughing is still appreciated w/ bloody sputum. No chest tube present ; Breath sounds are rhonchorus with some wheezing and crackles R > L. - Cardiovascular Exam Cardiovascular Exam: RRR, +S1, +S2 - GI/Abdominal Exam GI & Abdominal Exam: Soft. 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 Patient was biopsied on 10/02 and is currently receiving palliative radiation at this time. Hospital course was complicated by new onset Afib which is rate controlled w/ sotalol, and is not on anticoagulation. Tentative port placement on 10/05 with plans to start chemo-radiation on 10/08. Plan: Pulmonary Malignancy s/p CT guided biopsy POD#3 CT chest 09/25: extensive mediastinal and hilar lymphadenopathy suspicious for underlying pulmonary malignancy. Lytic lesion at T7 consistent with metastatic disease. Scattered sclerotic lesions. Extensive R lower lobe pneumonia. Ct abd/ pelvis 09/25: scattered osteoblastic lesions in multiple vertebral bodies, posterior elements and ribs. Age-indeterminate fracture of L4 superior end-plate , may be acute and/or pathologic. Low density lesion in anterolateral liver, metastasis suspected. Ct head 09/27: no evidence of metastatic disease, no acute intracranial findings Bone scan 09/26: findings consistent with bony metastatic disease Patient underwent CT guided biopsy of lung mass on 10/01 PM; Some SOB and Hemoptysis after biopsy; Pneumothorax also present after biopsy. Chest tube removed yesterday CXR on 10/03 still read w/ diffuse R sided infiltrates without any pneumothorax CXR on 10/02 post procedure read as increasing diffuse R sided infiltrate; no mention of pneumothorax Consults: ID Consulted (Dr. Coker), recs appreciated - C/w Ceftriaxone 1gmQD - Day 3/5 for pneumothorax Pulm consulted (Dr. García), recs appreciated - c/w Xopenex Q6H , Solumedrol 40mg Q6H Heme/onc consulted (Dr. Lomeli), recs appreciated -c/w megace, pallative radiation as per IR, x1 treatment ChemoRad tentative on 10/08, possible port placement tomorrow Discussed with pathologist Dr Cage regarding patient's biopsy, like small cell lung carcinoma, will await for official pathology reports: Radiation onc consulted (Dr. Iqbal), recs appreciated - Patient receiving pallative radiation Post-Obstructive Pneumonia Pt. is still afebrile at this time; only complaining of cough w/ bloody sputum Will c/w Ceftriaxone as above Will c/w Robitussin+Codeine PRN and Tessalon perles PRN C/w bronchodialator Xopenex as per pulm reccs Started Solumedrol 40 Q6H Sputum cx 09/25: moderate gram pos cocci in clusters, moderate pmn wbcs, few gram variable rods Blood cx 09/25: negative U/a 09/25: trace blood Procalcitonin elevated 8.8; Legionella Ag neg CXR on admission 09/25: extensive alveolar infiltrate in R lower lobe consistent with pneumonia Repeat CXR 09/26: unchanged from prior study Mycoplasma PNA IgG positive - likely patient had a pneumonia in past. ID consulted (Dr. Coker), recs appreciated Pulm consulted (Dr. García), recs appreciated New-onset atrial fibrillation with rapid ventricular response Rapid response called on 09/26/17; pt had additional episode overnight that converted back to normal sinus rhythm after several minutes spontaneously Will hold AC and start eliquis once hemoptysis subsides, and no further intervention planned Started Sotalol 80 BID for improved rate/rhythm control; patient's rate remained between 60-70 throughout the day today CTA 09/28 neg for MS Cardio consulted (Dr. Chirinos), recs appreciated Electrolyte abnormalities Hypophos / Hypocalcemic/ Hyper mag Continue following DVT/GI ppx: SCD /Protonix Disposition plan: Continue in patient management of cancer/hemoptysis. PT Eval to determine placement post chemo-rad treatment on 10/08. Patient seen, examined, and case discussed w/ attending physician Dr. Chaya Matos DO PGY1 Internal Medicine [facility] - Pager [phone] <Tru Larkin - Last Filed: 10/04/17 17:49> Objective - Vital Signs/Intake and Output Vital Signs (last 24 hours): Temp Pulse Resp BP Pulse Ox 98 F 71 20 136/80 96 10/04/17 12:00 10/04/17 17:15 10/04/17 12:00 10/04/17 17:15 10/04/17 06:00 Intake and Output: 10/04/17 10/04/17 06:59 18:59 Intake Total 480 Output Total 500 Balance -20 - Medications Medications: Current Medications Benzonatate (Tessalon Perles) 100 mg PO Q8 [facility] Last Admin: 10/04/17 14:53 Dose: 100 mg Guaifenesin/Codeine Phosphate (Robitussin W/Codeine) 5 ml PO Q4H PRN PRN Reason: Cough and congestion Last Admin: 10/03/17 11:12 Dose: 5 ml Ceftriaxone Sodium (Rocephin 1 Gram Ivpb) 1 gm in 100 mls @ 100 mls/hr IVPB DAILY [facility] PRN Reason: Protocol Last Admin: 10/04/17 09:02 Dose: 100 mls/hr Levalbuterol HCl (Xopenex) 0.63 mg IH Q2 PRN PRN Reason: Shortness of Breath Last Admin: 10/03/17 16:45 Dose: 0.63 mg Levalbuterol HCl (Xopenex) 0.63 mg IH [id number] [facility] Last Admin: 10/04/17 13:16 Dose: 0.63 mg Megestrol Acetate (Megace) 200 mg PO DAILY [facility] Last Admin: 10/04/17 09:05 Dose: 200 mg Methylprednisolone (Solu-Medrol) 40 mg IVP Q6 [facility] Last Admin: 10/04/17 17:16 Dose: 40 mg Oxycodone HCl (Oxycodone Immediate Release Tab) 5 mg PO Q6H PRN PRN Reason: Pain, moderate (4-7) Pantoprazole Sodium (Protonix Ec Tab) 40 mg PO 0600 [facility] Last Admin: 10/04/17 05:11 Dose: 40 mg Sotalol HCl (Betapace) 80 mg PO BID [facility] Last Admin: 10/04/17 17:15 Dose: 80 mg - Labs Labs: 10/04/17 05:45 10/04/17 05:45 PT 15.4 SECONDS (9.4-12.5) H 10/04/17 05:45 INR 1.33 10/04/17 05:45 APTT 26.2 Seconds (25.1-36.5) 10/04/17 05:45 Attending/Attestation - Attestation I have personally seen and examined this patient.: Yes I have fully participated in the care of the patient.: Yes I have reviewed all pertinent clinical information, including history, physical exam and plan: Yes Notes (Text): 10/04/17 17:46 76 year old male with past medical history of chronic smoking (quit ~5 years ago ) who presented with complaint of cough and shortness of breath. CT chest showed right lower lobe pneumonia, likely post obstructive, with diffuse moderate mediastinal lymphadenopathy and lesions suggestive of mets. CT abd/pelvis also revealed liver lesion and possible lumbar spine metastasis. Hem/Onc, Rad/Onc, ID and pulmonary are following. Patient is s/p lung biopsy earlier this week. Official biopsy is pending. Patient is started on palliative radiation therapy. Post-procedure had pneumothorax for which chest tube was placed. Chest tube was removed by IR yesterday. Continue with antibiotics as per ID and steroids as per pulmonary. Patient also had paroxysmal afib for which he is on sotalol for rate control. Anticoagulation is on hold for now due to hemoptysis which is improving. Will discuss with cardiology and hematology before resuming. Will replete and repeat lytes. Continue with PT. Tru Larkin MD Hospitalist.
[2017-10-04] MEDS: cefTRIAXone 1 gm 1 GM/100 ML BAG IVPB SCH (09:02)
[2017-10-04] MEDS: Megestrol Acetate 40 mg/ml Cup PO SCH (09:05)
--- NOTE | 2017-10-04 17:29 | CP.PCM.PN ---
Subjective - Date & Time of Evaluation Date of Evaluation: 10/04/17 Time of Evaluation: 16:30 - Subjective Subjective: Infectious Disease Follow Up: October 04, 2017 76 yo male with presentation of SOB and cough productive of sputum. The patient has had symptoms for the past 3 weeks. He was recently in [place] for his son's wedding. Patient states that "food does not taste the same". He has lost [address] scan showing extensive right lower lobe pneumonia but what is more concerning is the extensive mediastinal and hilar adenopathy with lytic lesion at T7. The patient has been started on IV Rocephin and Azithromycin for antibiotic care. No WBC. Procalcitonin of 8.8 at this time. New onset Atrial Fibrillation two nights ago... transferred to telemetry. The family and the patient have been refusing biopsy at this time. Emphasized to the patient and present family members (daughter and son-in-law) importance of the biopsy in determining diagnosis and type of treatment options available for the patient. Patient states that he is not sleeping well in the hospital. Noted the patient with Atrial fibrillation last night. Taken for lung biopsy this week. The patient with hemoptysis. Seen by radiation oncology Dr. Iqbal for palliative radiation evaluation. Receiving radiation. Hemoptysis improving. Pain in chest/lungs subsiding. Objective - Vital Signs/Intake and Output Vital Signs (last 24 hours): Temp Pulse Resp BP Pulse Ox 98 F 71 20 136/80 96 10/04/17 12:00 10/04/17 17:15 10/04/17 12:00 10/04/17 17:15 10/04/17 06:00 Intake and Output: 10/04/17 10/04/17 06:59 18:59 Intake Total 480 Output Total 500 Balance -20 - Medications Medications: Current Medications Benzonatate (Tessalon Perles) 100 mg PO Q8 [facility] Last Admin: 10/04/17 14:53 Dose: 100 mg Guaifenesin/Codeine Phosphate (Robitussin W/Codeine) 5 ml PO Q4H PRN PRN Reason: Cough and congestion Last Admin: 10/03/17 11:12 Dose: 5 ml Ceftriaxone Sodium (Rocephin 1 Gram Ivpb) 1 gm in 100 mls @ 100 mls/hr IVPB DAILY [facility] PRN Reason: Protocol Last Admin: 10/04/17 09:02 Dose: 100 mls/hr Levalbuterol HCl (Xopenex) 0.63 mg IH Q2 PRN PRN Reason: Shortness of Breath Last Admin: 10/03/17 16:45 Dose: 0.63 mg Levalbuterol HCl (Xopenex) 0.63 mg IH [id number] [facility] Last Admin: 10/04/17 13:16 Dose: 0.63 mg Megestrol Acetate (Megace) 200 mg PO DAILY [facility] Last Admin: 10/04/17 09:05 Dose: 200 mg Methylprednisolone (Solu-Medrol) 40 mg IVP Q6 [facility] Last Admin: 10/04/17 17:16 Dose: 40 mg Oxycodone HCl (Oxycodone Immediate Release Tab) 5 mg PO Q6H PRN PRN Reason: Pain, moderate (4-7) Pantoprazole Sodium (Protonix Ec Tab) 40 mg PO 0600 [facility] Last Admin: 10/04/17 05:11 Dose: 40 mg Sotalol HCl (Betapace) 80 mg PO BID [facility] Last Admin: 10/04/17 17:15 Dose: 80 mg - Labs Labs: 10/04/17 05:45 10/04/17 05:45 PT 15.4 SECONDS (9.4-12.5) H 10/04/17 05:45 INR 1.33 10/04/17 05:45 APTT 26.2 Seconds (25.1-36.5) 10/04/17 05:45 - Constitutional Appears: Non-toxic, No Acute Distress, Chronically Ill - Head Exam Head Exam: ATRAUMATIC, NORMOCEPHALIC - Eye Exam Eye Exam: EOMI, PERRL Pupil Exam: NORMAL ACCOMODATION, PERRL - ENT Exam ENT Exam: Mucous Membranes Moist, Normal External Ear Exam, TM's Normal Bilaterally - Neck Exam Neck Exam: Full ROM, Normal Inspection - Respiratory Exam Respiratory Exam: Clear to Ausculation Bilateral, NORMAL BREATHING PATTERN. absent: Rales, Rhonchi, Wheezes - Cardiovascular Exam Cardiovascular Exam: REGULAR RHYTHM, RRR, +S1, +S2 - GI/Abdominal Exam GI & Abdominal Exam: Soft, Normal Bowel Sounds. absent: Distended, Tenderness - Extremities Exam Extremities Exam: Full ROM, Normal Inspection - Neurological Exam Neurological Exam: Alert, Awake, CN II-XII Intact, Oriented x3 - Skin Skin Exam: Intact, Normal Color Assessment and Plan - Assessment and Plan (Free Text) Assessment: 76 yo [place] male with large amount of weight loss (19 lbs) and multiple CT lung findings. The patient started on Ceftriaxone and Azithromycin. Must rule out malignancy. Check for Tuberculosis. Check PPD and Quantiferon. Consider surgery or IR evaluation for biopsy of suspicious areas. Supportive care. May need Heme/Onc evaluation as well. Check ESR and C-Reactive Protein. The most likely diagnosis given the current symptoms is malignancy. Given overall picture, Tuberculosis is a much less likely diagnosis. Malignancy is extremely likely. 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 Discussed with family and the patient importance of a biopsy in determining diagnosis and available care/ treatment options. On Rocephin for antibiotic treatment. Taken for lung/liver biopsy. Pathology pending. Patient has chest tube in place for pneumothorax from procedure. Thank you for allowing me to participate in the care of the patient, we will follow with you.
--- NOTE | 2017-10-04 20:04 | CP.PCM.PN ---
Subjective - Date & Time of Evaluation Date of Evaluation: 10/04/17 Time of Evaluation: 10:00 - Subjective Subjective: Sobeida Dukes, PGY2, Heme-Onc Progress Note for Dr Lomeli: Patient seen and examined at bedside. No acute events overnight. Patient continued to have hemoptysis. Denies fevers, chills, nausea, vomiting, abdominal pain, leg swelling. Objective - Vital Signs/Intake and Output Vital Signs (last 24 hours): Temp Pulse Resp BP Pulse Ox 98.7 F 88 21 110/61 96 10/04/17 18:00 10/04/17 18:00 10/04/17 18:00 10/04/17 18:00 10/04/17 06:00 - Medications Medications: Current Medications Benzonatate (Tessalon Perles) 100 mg PO Q8 [facility] Last Admin: 10/04/17 14:53 Dose: 100 mg Guaifenesin/Codeine Phosphate (Robitussin W/Codeine) 5 ml PO Q4H PRN PRN Reason: Cough and congestion Last Admin: 10/03/17 11:12 Dose: 5 ml Ceftriaxone Sodium (Rocephin 1 Gram Ivpb) 1 gm in 100 mls @ 100 mls/hr IVPB DAILY [facility] PRN Reason: Protocol Last Admin: 10/04/17 09:02 Dose: 100 mls/hr Levalbuterol HCl (Xopenex) 0.63 mg IH Q2 PRN PRN Reason: Shortness of Breath Last Admin: 10/03/17 16:45 Dose: 0.63 mg Levalbuterol HCl (Xopenex) 0.63 mg IH [id number] [facility] Last Admin: 10/04/17 19:27 Dose: 0.63 mg Megestrol Acetate (Megace) 200 mg PO DAILY [facility] Last Admin: 10/04/17 09:05 Dose: 200 mg Methylprednisolone (Solu-Medrol) 40 mg IVP Q6 [facility] Last Admin: 10/04/17 17:16 Dose: 40 mg Oxycodone HCl (Oxycodone Immediate Release Tab) 5 mg PO Q6H PRN PRN Reason: Pain, moderate (4-7) Pantoprazole Sodium (Protonix Ec Tab) 40 mg PO 0600 [facility] Last Admin: 10/04/17 05:11 Dose: 40 mg Sotalol HCl (Betapace) 80 mg PO BID [facility] Last Admin: 10/04/17 17:15 Dose: 80 mg - Labs Labs: 10/04/17 05:45 10/04/17 05:45 PT 15.4 SECONDS (9.4-12.5) H 10/04/17 05:45 INR 1.33 10/04/17 05:45 APTT 26.2 Seconds (25.1-36.5) 10/04/17 05:45 - Constitutional Appears: Older Than Stated Age, Chronically Ill - Head Exam Head Exam: ATRAUMATIC, NORMOCEPHALIC - Eye Exam Eye Exam: EOMI, PERRL. absent: Conjunctival injection, Nystagmus, Scleral icterus Pupil Exam: NORMAL ACCOMODATION, PERRL. absent: Miosis, Mydriatic, Unequal - ENT Exam ENT Exam: Mucous Membranes Moist - Neck Exam Neck Exam: Full ROM - Respiratory Exam Respiratory Exam: Decreased Breath Sounds Additional comments: + right sided chest dressing in place, c/d/i. tube removed last night - Cardiovascular Exam Cardiovascular Exam: RRR, +S1, +S2. absent: Murmur - GI/Abdominal Exam GI & Abdominal Exam: Soft, Normal Bowel Sounds. absent: Guarding, Rigid, Tenderness, Mass, Organomegaly, Rebound - Extremities Exam Extremities Exam: Normal Inspection. absent: Calf Tenderness, Pedal Edema - Back Exam Back Exam: NORMAL INSPECTION - Neurological Exam Neurological Exam: Alert, Awake, Oriented x3 - Psychiatric Exam Psychiatric exam: Normal Affect, Normal Mood - Skin Skin Exam: Dry, Normal Color, Warm Assessment and Plan - Assessment and Plan (Free Text) Assessment: 76 year old male with PMH gastric ulcer, gastritis, admitted for RLL pneumonia, found to have extensive mediastinal and hilar adenopathy and lytic lesions at T7 , other vertebral bodies and liver mets. Patient's hospital course complicated by onset of afib, started on heparin drip and cardizem. Patient underwent CT guided biopsy of hilar mass 10/01. Patient developed hemoptysis post procedure, started on radiation treatments urgently. Discussed with pathologist Dr Cage regarding patient's biopsy, like small cell lung carcinoma. Will keep on floor for further radiation treatments, chest port insertion, and likely chemotherapy on Sunday: - C/w Megace - c/w sotalol for afib - c/w IV antibiotics and IV steroids - Hold anticoagulation for afib due to hemoptysis. Consult with Cardio when warfarin/heparin needs to be resumed - monitor Case seen and discussed with Dr Lomeli.
[2017-10-05] MEDS: MethylPREDNISolone 40 mg Vial IVP SCH ×4 (00:05→21:58)
--- NOTE | 2017-10-05 00:30 | PN ---
Copied To: Lenka García MD Attending MD: Lenka García MD DATE: 10/04/2017 PULMONARY PROGRESS NOTE REFERRING PHYSICIAN: Dr. Larkin. SUBJECTIVE: He is lying in the bed, at 45 degrees. Night was unremarkable. Hemoptysis much better. Chest tube is taken out. No nausea, no vomiting, no diarrhea. No leg pain or leg swelling. OBJECTIVE: GENERAL: In no distress. VITAL SIGNS: Temperature is 98, heart rate 68, respiratory rate is 20, blood pressure 110/61. HEENT: Moist mucous membranes. No ulcer or thrush noted. NECK: Supple. No JVD. LUNGS: Have scattered rhonchi. No wheezing today. HEART: S1 and S2. ABDOMEN: Soft, nontender. No organomegaly. EXTREMITIES: There is no edema. NEUROLOGIC: Awake and alert. Follows simple command. MEDICATIONS: He is on Betapace 80 mg twice a day, Megace 200 mg daily, OxyContin 5 mg every 6 hours p.r.n., Protonix 40 mg daily, Robitussin with codeine 5 mL every 4 hours p.r.n., Rocephin 1 g IV daily, Solu-Medrol 40 mg every 6 hours, Tessalon Perles 100 mg twice a day, Xopenex inhaled every 2 hours p.r.n. and every 6 hours frsad-sud-vitut. LABORATORY DATA: Shows hemoglobin 13.1, hematocrit 37.6, WBC 7.7, platelet is 349. INR 1.33. PTT 26. Sodium 134, potassium 4.8, chloride 105, bicarbonate 23, BUN 15, creatinine 0.6, glucose 162, calcium 8.2, phosphorus 1.9, magnesium 2.5, AST 63, ALT 72, alk phos is 107. Albumin is 3. Microbiology, blood culture and sputum culture, there is no growth. IMPRESSION: Lung tumor, status post biopsy, ended in pneumothorax and hemoptysis. Chest tube has been removed. Still have some blood-tinged sputum. Chronic obstructive lung disease, atrial fibrillation, off anticoagulation for now, continue steroids, inhaled bronchodilator, gastric prophylaxis, sequential compression devices to lower extremity, keep her atrial fibrillation rate control. Thank you and we will follow with you. Lenka García MD [facility] # [id number]
[2017-10-05] MEDS: Levalbuterol 0.63 MG/3 ML Inhal Soln UD IH SCH ×4 (01:10→21:32)
[2017-10-05] MEDS: guaiFENesin-Codeine 100-10mg/5ml Syrup (5 ml) UD PO PRN ×3 (01:51→21:58)
[2017-10-05 06:31] LABS: BASO # 0.01 K/mm3 (0.0-2.0); BASO % 0.1 % (0.0-3.0); GRAN # 11.37 (1.4-6.5); GRAN % 89.5 % (50.0-68.0); HEMOGLOBIN 12.7 g/dL (14.0-18.0); LYMPH # 0.5 (1.2-3.4); LYMPH % 3.9 % (22.0-35.0); MEAN CORPUSCULAR HEMOGLOBIN 28.6 pg (25.0-35.0); MEAN PLATELET VOLUME 9.8 fl (7.0-11.0); MONO # 0.8 (0.1-0.6); MONO % 6.5 % (1.0-6.0); PLATELET COUNT 392 10^3/uL (120.0-450.0); RBC 4.44 10^6/uL (3.5-6.1); RED CELL DISTRIBUTION WIDTH 13.9 % (11.5-14.5); WHITE BLOOD COUNT 12.7 10^3/ul (4.5-11.0)
[2017-10-05 06:39] LABS: INR 1.24; PARTIAL THROMBOPLASTIN TIME 25.3 Seconds (25.1-36.5); PROTHROMBIN TIME 14.3 SECONDS (9.4-12.5)
[2017-10-05 07:04] LABS: ALB/GLOB RATIO 0.9 (1.1-1.8); ALBUMIN 2.7 g/dL (3.0-4.8); ALT/SGPT 251 U/L (7-56); AST/SGOT 233 U/L (17-59); BLOOD UREA NITROGEN 19 mg/dL (7-21); CALCIUM 8.3 mg/dL (8.4-10.5); GFR AFRICAN-AMERICAN > 60; GFR NON-AFRICAN AMERICAN > 60
[2017-10-05] MEDS ORDERED: Potassium & Sodium Phosphate PO ONE (08:07)
[2017-10-05] MEDS ORDERED: Sod Polystyrene Sulf 15 gm/60 ml Susp PO ONE (08:08)
[2017-10-05 08:19] LABS: LYMPHOCYTE 4 % (22.0-35.0); MONOCYTE 5 % (1.0-6.0); NEUTROPHIL 91 % (50.0-70.0)
[2017-10-05 08:20] LABS: PLATELET ESTIMATE NORMAL (NORMAL)
--- NOTE | 2017-10-05 09:01 | CP.PCM.PN ---
<Kai Matos - Last Filed: 10/05/17 14:59> Subjective - Date & Time of Evaluation Date of Evaluation: 10/05/17 Time of Evaluation: 09:00 - Subjective Subjective: Pt seen this AM at bedside; Hemoptysis improving, SOB minimal at this time. Port placement per IR w/ Dr. Toledo on Sunday 10/08. Patient denied any F, Chills, CP, Palpitations, Abd pain, N/V/D/C. 12 system ROS otherwise negative. Objective - Vital Signs/Intake and Output Vital Signs (last 24 hours): Temp Pulse Resp BP Pulse Ox 98.0 F 67 19 105/60 96 10/05/17 06:00 10/05/17 06:00 10/05/17 06:00 10/05/17 06:00 10/05/17 06:00 Intake and Output: 10/05/17 10/05/17 06:59 18:59 Intake Total 600 Output Total 300 Balance 300 - Medications Medications: Current Medications Benzonatate (Tessalon Perles) 100 mg PO Q8 [facility] Last Admin: 10/05/17 05:46 Dose: 100 mg Guaifenesin/Codeine Phosphate (Robitussin W/Codeine) 5 ml PO Q4H PRN PRN Reason: Cough and congestion Last Admin: 10/05/17 01:51 Dose: 5 ml Ceftriaxone Sodium (Rocephin 1 Gram Ivpb) 1 gm in 100 mls @ 100 mls/hr IVPB DAILY [facility] PRN Reason: Protocol Last Admin: 10/04/17 09:02 Dose: 100 mls/hr Levalbuterol HCl (Xopenex) 0.63 mg IH Q2 PRN PRN Reason: Shortness of Breath Last Admin: 10/03/17 16:45 Dose: 0.63 mg Levalbuterol HCl (Xopenex) 0.63 mg IH [id number] [facility] Last Admin: 10/05/17 07:49 Dose: 0.63 mg Megestrol Acetate (Megace) 200 mg PO DAILY [facility] Last Admin: 10/04/17 09:05 Dose: 200 mg Methylprednisolone (Solu-Medrol) 40 mg IVP Q6 [facility] Last Admin: 10/05/17 05:46 Dose: 40 mg Oxycodone HCl (Oxycodone Immediate Release Tab) 5 mg PO Q6H PRN PRN Reason: Pain, moderate (4-7) Pantoprazole Sodium (Protonix Ec Tab) 40 mg PO 0600 [facility] Last Admin: 10/04/17 05:11 Dose: 40 mg Sotalol HCl (Betapace) 80 mg PO BID [facility] Last Admin: 10/04/17 17:15 Dose: 80 mg - Labs Labs: 10/05/17 05:30 10/05/17 05:30 PT 14.3 SECONDS (9.4-12.5) H 10/05/17 05:30 INR 1.24 10/05/17 05:30 APTT 25.3 Seconds (25.1-36.5) 10/05/17 05:30 Physical Exam: - Constitutional Appears: Well, Cachectic - Head Exam Head Exam: ATRAUMATIC, NORMAL INSPECTION, NORMOCEPHALIC - Eye Exam Eye Exam: EOMI, PERRL. absent: Scleral icterus - ENT Exam ENT Exam: Mucous Membranes Moist - Respiratory Exam Respiratory Exam: Rhonchi, Wheezes. absent: Respiratory Distress Additional comments: Patient is able to situp in bed under his own strength without any pain or grimacing. Does not appear to be dyspneic or in respiratory distress at this time. Some coughing is still appreciated w/ bloody sputum. No chest tube present ; Breath sounds are rhonchorus with some wheezing and crackles R > L. - Cardiovascular Exam Cardiovascular Exam: RRR, +S1, +S2 - GI/Abdominal Exam GI & Abdominal Exam: Soft. 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 Patient was biopsied on 10/02 and is currently receiving palliative radiation at this time. Hospital course was complicated by new onset Afib which is rate controlled w/ sotalol, and is not on anticoagulation. Tentative port placement on 10/08 with plans to start chemo-radiation on 10/08. Plan: Pulmonary Malignancy s/p CT guided biopsy POD#3 CT chest 09/25: extensive mediastinal and hilar lymphadenopathy suspicious for underlying pulmonary malignancy. Lytic lesion at T7 consistent with metastatic disease. Scattered sclerotic lesions. Extensive R lower lobe pneumonia. Ct abd/ pelvis 09/25: scattered osteoblastic lesions in multiple vertebral bodies, posterior elements and ribs. Age-indeterminate fracture of L4 superior end-plate , may be acute and/or pathologic. Low density lesion in anterolateral liver, metastasis suspected. Ct head 09/27: no evidence of metastatic disease, no acute intracranial findings Bone scan 09/26: findings consistent with bony metastatic disease Patient underwent CT guided biopsy of lung mass on 10/01, Pneumothorax present after w/ chest tube placement and removal. Patient still having some hemoptysis and SOB; however feels that his symptoms are significantly improved. Currently holding ceftriaxone due to Transaminitis this AM Consults: ID Consulted (Dr. Coker), recs appreciated Pulm consulted (Dr. García), recs appreciated - c/w Xopenex Q6H , Solumedrol 40mg Q6H Heme/onc consulted (Dr. Lomeli), recs appreciated -c/w megace, pallative radiation as per IR, x1 treatment ChemoRad tentative on 10/08, possible port placement 10/[address] Cage regarding patient's biopsy, like small cell lung carcinoma, will await for official pathology reports: Radiation onc consulted (Dr. Iqbal), recs appreciated - Patient receiving pallative radiation Transaminitis Mild AST/ALT elevations day prior; significantly elevated today 63/72 vs 233/ 251 this AM Hepatotoxic meds discontinued yesterday Ceftriaxone discontinued today GI consulted, recs appreciated Post-Obstructive Pneumonia Pt. is still afebrile at this time; only complaining of cough w/ bloody sputum Will c/w Ceftriaxone as above Will c/w Robitussin+Codeine PRN and Tessalon perles PRN C/w bronchodialator Xopenex as per pulm reccs Started Solumedrol 40 Q6H Sputum cx 09/25: moderate gram pos cocci in clusters, moderate pmn wbcs, few gram variable rods Blood cx 09/25: negative U/a 09/25: trace blood Procalcitonin elevated 8.8; Legionella Ag neg CXR on admission 09/25: extensive alveolar infiltrate in R lower lobe consistent with pneumonia Repeat CXR 09/26: unchanged from prior study Mycoplasma PNA IgG positive - likely patient had a pneumonia in past. ID consulted (Dr. Coker), recs appreciated Pulm consulted (Dr. García), recs appreciated New-onset atrial fibrillation with rapid ventricular response Rapid response called on 09/26/17; pt had additional episode overnight that converted back to normal sinus rhythm after several minutes spontaneously Will hold AC and start eliquis once hemoptysis subsides, and no further intervention planned Started Sotalol 80 BID for improved rate/rhythm control; patient's rate remained between 60-70 throughout the day today CTA 09/[address] Cardio consulted (Dr. Chirinos), recs appreciated Electrolyte abnormalities HyperK/ Hypophos / Hypocalcemic/ Hyper mag Continue following levels; treat/replete as necessary Nephrology consulted DVT/GI ppx: SCD /Protonix Disposition plan: Continue in patient management of cancer/hemoptysis. PT Eval to determine placement post chemo-rad treatment on 10/08. Patient seen, examined, and case discussed w/ attending physician Dr. Chaya Matos DO PGY1 Internal Medicine [employer] - Pager [phone] <Tru Larkin - Last Filed: 10/05/17 17:23> Objective - Vital Signs/Intake and Output Vital Signs (last 24 hours): Temp Pulse Resp BP Pulse Ox 98.7 F 84 18 120/66 96 10/05/17 12:00 10/05/17 12:00 10/05/17 12:00 10/05/17 12:00 10/05/17 06:00 Intake and Output: 10/05/17 10/05/17 06:59 18:59 Intake Total 600 Output Total 300 Balance 300 - Medications Medications: Current Medications Benzonatate (Tessalon Perles) 100 mg PO Q8 [facility] Last Admin: 10/05/17 13:24 Dose: 100 mg Guaifenesin/Codeine Phosphate (Robitussin W/Codeine) 5 ml PO Q4H PRN PRN Reason: Cough and congestion Last Admin: 10/05/17 01:51 Dose: 5 ml Ceftriaxone Sodium (Rocephin 1 Gram Ivpb) 1 gm in 100 mls @ 100 mls/hr IVPB DAILY [facility] PRN Reason: Protocol Last Admin: 10/04/17 09:02 Dose: 100 mls/hr Levalbuterol HCl (Xopenex) 0.63 mg IH Q2 PRN PRN Reason: Shortness of Breath Last Admin: 10/03/17 16:45 Dose: 0.63 mg Levalbuterol HCl (Xopenex) 0.63 mg IH [id number] [facility] Last Admin: 10/05/17 13:56 Dose: 0.63 mg Megestrol Acetate (Megace) 200 mg PO DAILY [facility] Last Admin: 10/05/17 11:25 Dose: 200 mg Methylprednisolone (Solu-Medrol) 40 mg IVP Q12 [facility] Oxycodone HCl (Oxycodone Immediate Release Tab) 5 mg PO Q6H PRN PRN Reason: Pain, moderate (4-7) Last Admin: 10/05/17 11:27 Dose: 5 mg Pantoprazole Sodium (Protonix Ec Tab) 40 mg PO 0600 [facility] Last Admin: 10/05/17 13:30 Dose: 40 mg Sotalol HCl (Betapace) 80 mg PO BID [facility] Last Admin: 10/05/17 11:29 Dose: 80 mg - Labs Labs: 10/05/17 05:30 10/05/17 05:30 PT 14.3 SECONDS (9.4-12.5) H 10/05/17 05:30 INR 1.24 10/05/17 05:30 APTT 25.3 Seconds (25.1-36.5) 10/05/17 05:30 Attending/Attestation - Attestation I have personally seen and examined this patient.: Yes I have fully participated in the care of the patient.: Yes I have reviewed all pertinent clinical information, including history, physical exam and plan: Yes Notes (Text): 10/05/17 17:21 76 year old male with past medical history of chronic smoking (quit ~5 years ago ) who presented with complaint of cough and shortness of breath. CT chest showed right lower lobe pneumonia, likely post obstructive, with diffuse moderate mediastinal lymphadenopathy and lesions suggestive of mets. CT abd/pelvis also revealed liver lesion and possible lumbar spine metastasis. Hem/Onc, Rad/Onc, ID and pulmonary are following. Patient is s/p lung biopsy earlier this week. Official biopsy is pending, preliminary is small cell per pathology. Post-procedure had pneumothorax for which chest tube was placed. Chest tube was removed by IR yesterday. Patient is started on palliative radiation therapy. Plan is port-a-cath on Sunday followed by chemotherapy. Patient also had paroxysmal afib for which he is on sotalol for rate control. Anticoagulation is on hold for now due to hemoptysis which is improving. Will discuss with cardiology and hematology before resuming. LFTs are increased today. Ceftriaxone is on hold. GI evaluation is requested and hepatitis panel is ordered. Tru Larkin MD Hospitalist.
--- NOTE | 2017-10-05 10:12 | CP.PCM.CON ---
History of Present Illness - History of Present Illness History of Present Illness: Gastroenterology Consult Note for Dr. Misa Lloyd PGY2 Reason for consult: Transaminitis Patient is a 76 year old male with a history of tobacco abuse until 5 years ago who presented initially with complaints of 3 weeks of productive cough and shortness of breath. Upon being admitted patient was found to have non-small cell lung carcinoma with with diffuse moderate mediastinal lymphadenopathy as well as lumbar spine and possible liver metastasis. Patient was also found to have a superimposed right lower lobe infection most likely a post obstructive pneumonia. During hospital course patient went for lung biopsy where he developed a pneumothorax for which chest tube was placed. During course of hospital stay patient's liver enzymes were stable and normal until 10/02. On this date patient was started on two new medications: rocephin and sotalol. On , liver enzymes began to steadily increase. Lab values: 10/02 AST 32, ALT 38, T bili 0.7 Alk phos 96; 10/03 AST 39, ALT 51, T bili 0.7 Alk phos 95; 10/04 AST 63, ALT 72, T bili 0.5 Alk phos 107; 10/05 AST 233 , ALT 251, T bili 0.4, Alk phos 95 Imaging: CT abdomen/pelvis performed on 09/24 reveals: Liver-2.1 cm low-density lesion in the anterolateral liver. No gross lesion or ductal dilatation. Colon- Colonic diverticulosis. Prominent amount of retained colonic stool. No obstruction. No gross mural thickening. Gallbladder and Bile ducts: Unremarkable. Pancreas:Unremarkable. No gross lesion or ductal dilatation. Past Patient History - Tetanus Immunizations Tetanus Immunization: Unknown - Past Social History Smoking Status: Former Smoker Alcohol: Occasional Home Situation {Lives}: With Family - CARDIAC Hx Cardiac Disorders: No - PULMONARY Hx Respiratory Disorders: No - NEUROLOGICAL Hx Neurological Disorder: No - HEENT Hx HEENT Problems: No - RENAL Hx Chronic Kidney Disease: No - ENDOCRINE/METABOLIC Hx Endocrine Disorders: No - HEMATOLOGICAL/ONCOLOGICAL Hx Blood Disorders: No - INTEGUMENTARY Hx Dermatological Problems: No - MUSCULOSKELETAL/RHEUMATOLOGICAL Hx Musculoskeletal Disorders: No Hx Falls: No - GASTROINTESTINAL Hx Gastrointestinal Disorders: No - GENITOURINARY/GYNECOLOGICAL Hx Genitourinary Disorders: No - PSYCHIATRIC Hx Depression: No Hx Emotional Abuse: No Hx Physical Abuse: No Hx Substance Use: No - SURGICAL HISTORY Hx Surgeries: No Hx Amputation: No Other/Comment: colonoscopy [address] johnson, no findings. Meds Allergies/Adverse Reactions: Allergies Allergy/AdvReac Type Severity Reaction Status Date / Time No Known Allergies Allergy Verified 08/03/13 05:23 - Medications Medications: Current Medications Benzonatate (Tessalon Perles) 100 mg PO Q8 [facility]S AT [facility] Last Admin: 10/05/17 05:46 Dose: 100 mg Guaifenesin/Codeine Phosphate (Robitussin W/Codeine) 5 ml PO Q4H PRN PRN Reason: Cough and congestion Last Admin: 10/05/17 01:51 Dose: 5 ml Ceftriaxone Sodium (Rocephin 1 Gram Ivpb) 1 gm in 100 mls @ 100 mls/hr IVPB DAILY [facility] PRN Reason: Protocol Last Admin: 10/04/17 09:02 Dose: 100 mls/hr Levalbuterol HCl (Xopenex) 0.63 mg IH Q2 PRN PRN Reason: Shortness of Breath Last Admin: 10/03/17 16:45 Dose: 0.63 mg Levalbuterol HCl (Xopenex) 0.63 mg IH [id number] COUNTS [facility]CLUDE 234 BEDS AT [facility] Last Admin: 10/05/17 07:49 Dose: 0.63 mg Megestrol Acetate (Megace) 200 mg PO DAILY [facility] 234 [facility]S AT [facility] Last Admin: 10/04/17 09:05 Dose: 200 mg Methylprednisolone (Solu-Medrol) 40 mg IVP Q6 [facility] 234 [facility]S [facility] Last Admin: 10/05/17 05:46 Dose: 40 mg Oxycodone HCl (Oxycodone Immediate Release Tab) 5 mg PO Q6H PRN PRN Reason: Pain, moderate (4-7) Pantoprazole Sodium (Protonix Ec Tab) 40 mg PO 0600 [facility] Last Admin: 10/04/17 05:11 Dose: 40 mg Sotalol HCl (Betapace) 80 mg PO BID [facility] 234 [facility]S [facility] Last Admin: 10/04/17 17:15 Dose: 80 mg Physical Exam - Head Exam Head Exam: ATRAUMATIC, NORMAL INSPECTION, NORMOCEPHALIC - Eye Exam Eye Exam: EOMI, Normal appearance - ENT Exam ENT Exam: Mucous Membranes Moist, Normal Exam - Neck Exam Neck exam: Positive for: Normal Inspection - Respiratory Exam Respiratory Exam: Rhonchi. absent: Wheezes - Cardiovascular Exam Cardiovascular Exam: REGULAR RHYTHM, +S1, +S2 - GI/Abdominal Exam GI & Abdominal Exam: Normal Bowel Sounds, Soft. absent: Distended, Firm, Guarding, Mass, Organomegaly, Rigid Results - Vital Signs Recent Vital Signs: Last Vital Signs Temp 98.0 F 10/05/17 06:00 Pulse 67 10/05/17 06:00 Resp 19 10/05/17 06:00 BP 105/60 10/05/17 06:00 Pulse Ox 96 10/05/17 06:00 - Labs Result Diagrams: 10/06/17 06:30 10/07/17 06:00 Labs: Laboratory Results - last 24 hr 10/05/17 10/05/17 10/05/17 05:30 05:30 05:30 WBC 12.7 H D RBC 4.44 Hgb 12.7 L Hct 37.3 L MCV 84.0 MCH 28.6 MCHC 34.0 RDW 13.9 Plt Count 392 MPV 9.8 Gran % 89.5 H Lymph % (Auto) 3.9 L [place] % (Auto) 6.5 H Eos % (Auto) 0.0 L Baso % (Auto) 0.1 Gran # 11.37 H Lymph # (Auto) 0.5 L [place] # (Auto) 0.8 H Eos # (Auto) 0.0 Baso # (Auto) 0.01 Neutrophils % (Manual) 91 H Lymphocytes % (Manual) 4 L Monocytes % (Manual) 5 Platelet Evaluation Normal PT 14.3 H INR 1.24 APTT 25.3 Sodium 136 Potassium 5.2 H Chloride 104 Carbon Dioxide 24 Anion Gap 13 BUN 19 Creatinine 0.7 L Est GFR ( Amer) > 60 Est GFR (Non-Af Amer) > 60 Random Glucose 170 H Calcium 8.3 L Phosphorus 2.1 L Magnesium 2.4 H Total Bilirubin 0.4 AST 233 H D ALT 251 H Alkaline Phosphatase 95 Total Protein 5.7 L Albumin 2.7 L Globulin 3.0 Albumin/Globulin Ratio 0.9 L Assessment & Plan - Assessment and Plan (Free Text) Assessment: 76 year old male with a history of tobacco abuse initially presenting with productive cough and shortness of breath x 3 weeks found to have lung ca with lumbar spine and liver with recent increase in liver enzymes s/p rocephin and sotalol. Plan: Transaminitis -Continue to hold Rocephin -Sotalol causes liver damage in 2% of patients; continue to monitor enzymes off rocephin. Patient originally on metoprolol however changed to sotalol due to goal of maintaining NSR -TSH, Hepatitis panel (recent travel to [place]. hepatitis A has incubation period ~28 days) -Abdominal US ordered -Coagulation studies ordered
--- NOTE | 2017-10-05 10:39 | PN ---
Copied To: Jeremiah Chirinos MD Attending MD: Jeremiah Chirinos MD DATE: 10/05/2017 CARDIOLOGY FOLLOWUP SUBJECTIVE: The patient's status is unchanged. PHYSICAL EXAMINATION: VITAL SIGNS: Blood pressure 105/60, the heart rate is in the 60s. Physical exam is unchanged. LABORATORY DATA: Hemoglobin is 12.7. Chemistries: BUN and creatinine are unremarkable. IMPRESSION: 1. Cancer. 2. Status post pneumothorax. 3. Paroxysmal atrial fibrillation. 4. Metastatic cancer. PLAN: Given these findings, the patient is for radiation therapy. We will discontinue telemetry today. Jeremiah Chirinos MD
[2017-10-05] MEDS: Megestrol Acetate 40 mg/ml Cup PO SCH (11:25)
[2017-10-05] MEDS: oxyCODONE 5 mg Immediate Release Tab PO PRN ×2 (11:27→21:57)
[2017-10-05] MEDS: Pantoprazole 40 mg EC Tab PO SCH (13:30)
--- NOTE | 2017-10-05 14:47 | CP.PCM.PN ---
Subjective - Date & Time of Evaluation Date of Evaluation: 10/05/17 Time of Evaluation: 13:00 - Subjective Subjective: Infectious Disease Follow Up: October 05, 2017 76 yo male with presentation of SOB and cough productive of sputum. The patient has had symptoms for the past 3 weeks. He was recently in [place] for his son's wedding. Patient states that "food does not taste the same". He has lost [address] scan showing extensive right lower lobe pneumonia but what is more concerning is the extensive mediastinal and hilar adenopathy with lytic lesion at T7. The patient has been started on IV Rocephin and Azithromycin for antibiotic care. No WBC. Procalcitonin of 8.8 at this time. New onset Atrial Fibrillation two nights ago... transferred to telemetry. The family and the patient have been refusing biopsy at this time. Emphasized to the patient and present family members (daughter and son-in-law) importance of the biopsy in determining diagnosis and type of treatment options available for the patient. Patient states that he is not sleeping well in the hospital. Noted the patient with Atrial fibrillation last night. Taken for lung biopsy this week. The patient with hemoptysis. Seen by radiation oncology Dr. Iqbal for palliative radiation evaluation. Receiving radiation. Noted transaminitis. Hemoptysis improving. Pain in chest/lungs subsiding. Objective - Vital Signs/Intake and Output Vital Signs (last 24 hours): Temp Pulse Resp BP Pulse Ox 98.7 F 84 18 120/66 96 10/05/17 12:00 10/05/17 12:00 10/05/17 12:00 10/05/17 12:00 10/05/17 06:00 Intake and Output: 10/05/17 10/05/17 06:59 18:59 Intake Total 600 Output Total 300 Balance 300 - Medications Medications: Current Medications Benzonatate (Tessalon Perles) 100 mg PO Q8 [facility] Last Admin: 10/05/17 13:24 Dose: 100 mg Guaifenesin/Codeine Phosphate (Robitussin W/Codeine) 5 ml PO Q4H PRN PRN Reason: Cough and congestion Last Admin: 10/05/17 01:51 Dose: 5 ml Ceftriaxone Sodium (Rocephin 1 Gram Ivpb) 1 gm in 100 mls @ 100 mls/hr IVPB DAILY [facility] PRN Reason: Protocol Last Admin: 10/04/17 09:02 Dose: 100 mls/hr Levalbuterol HCl (Xopenex) 0.63 mg IH Q2 PRN PRN Reason: Shortness of Breath Last Admin: 10/03/17 16:45 Dose: 0.63 mg Levalbuterol HCl (Xopenex) 0.63 mg IH [id number] [facility] Last Admin: 10/05/17 13:56 Dose: 0.63 mg Megestrol Acetate (Megace) 200 mg PO DAILY [facility] Last Admin: 10/05/17 11:25 Dose: 200 mg Methylprednisolone (Solu-Medrol) 40 mg IVP Q6 [facility] Last Admin: 10/05/17 13:25 Dose: 40 mg Oxycodone HCl (Oxycodone Immediate Release Tab) 5 mg PO Q6H PRN PRN Reason: Pain, moderate (4-7) Last Admin: 10/05/17 11:27 Dose: 5 mg Pantoprazole Sodium (Protonix Ec Tab) 40 mg PO 0600 [facility] Last Admin: 10/05/17 13:30 Dose: 40 mg Sotalol HCl (Betapace) 80 mg PO BID [facility] Last Admin: 10/05/17 11:29 Dose: 80 mg - Labs Labs: 10/05/17 05:30 10/05/17 05:30 PT 14.3 SECONDS (9.4-12.5) H 10/05/17 05:30 INR 1.24 10/05/17 05:30 APTT 25.3 Seconds (25.1-36.5) 10/05/17 05:30 - Constitutional Appears: Non-toxic, No Acute Distress, Chronically Ill - Head Exam Head Exam: ATRAUMATIC, NORMOCEPHALIC - Eye Exam Eye Exam: EOMI, PERRL Pupil Exam: NORMAL ACCOMODATION, PERRL - ENT Exam ENT Exam: Mucous Membranes Moist, Normal External Ear Exam, TM's Normal Bilaterally - Neck Exam Neck Exam: Full ROM, Normal Inspection - Respiratory Exam Respiratory Exam: Clear to Ausculation Bilateral, NORMAL BREATHING PATTERN. absent: Rales, Rhonchi, Wheezes - Cardiovascular Exam Cardiovascular Exam: REGULAR RHYTHM, RRR, +S1, +S2 - GI/Abdominal Exam GI & Abdominal Exam: Soft, Normal Bowel Sounds. absent: Distended, Tenderness - Extremities Exam Extremities Exam: Full ROM, Normal Inspection - Neurological Exam Neurological Exam: Alert, Awake, CN II-XII Intact, Oriented x3 - Psychiatric Exam Psychiatric exam: Normal Affect, Normal Mood - Skin Skin Exam: Intact, Normal Color Assessment and Plan - Assessment and Plan (Free Text) Assessment: 76 yo male with large amount of weight loss (19 lbs) and multiple CT lung findings. The patient started on Ceftriaxone and Azithromycin. Must rule out malignancy. Check for Tuberculosis. Check PPD and Quantiferon. Consider surgery or IR evaluation for biopsy of suspicious areas. Supportive care. May need Heme/Onc evaluation as well. Check ESR and C-Reactive Protein. The most likely diagnosis given the current symptoms is malignancy. Given overall picture, Tuberculosis is a much less likely diagnosis. Malignancy is extremely likely. Overall nursing home prognosis is very poor. Discussed with family and the patient importance of a biopsy in determining diagnosis and available care/ treatment options. Rocephin on hold due to sudden transaminitis. Taken for lung/liver biopsy. Pathology pending. Patient has chest tube in place for pneumothorax from procedure. Thank you for allowing me to participate in the care of the patient, we will follow with you.
--- NOTE | 2017-10-05 16:25 | PN ---
Copied To: Lenka García MD Attending MD: Lenka García MD DATE: 10/05/2017 PULMONARY PROGRESS NOTE REFERRING PHYSICIAN: Dr. Larkin. SUBJECTIVE: He is lying in the bed, head at 45 degrees, having lunch. Cough is a little better. Still has some blood-tinged sputum. No nausea, no vomiting, no diarrhea. No leg pain or leg swelling. OBJECTIVE: GENERAL: In no acute distress. VITAL SIGNS: Temp is 98, heart rate is 84, respiratory rate is 18, blood pressure 120/66, pulse ox 96% on 3 L nasal cannula. HEENT: Moist mucous membrane. No ulcer or thrush noted. NECK: Supple. No JVD. LUNGS: Have a fair airflow with few rhonchi. HEART: S1 and S2. ABDOMEN: Soft, nontender. No organomegaly. EXTREMITIES: No edema. NEUROLOGICAL: Awake and alert. Follows simple command. MEDICATIONS: He is on sotalol 80 mg twice a day, Megace 200 mg daily, oxycodone 5 mg every 6 hours p.r.n., Protonix 40 mg daily, Robitussin with Codeine 5 mL every 4 hours, Rocephin 1 g IV daily, Solu-Medrol 40 mg every 6 hours, Tessalon Perles 100 mg every 8 hours, Xopenex inhaled every 2 hours p.r.n. and every 6 hours [id number]. LABORATORY DATA: Shows hemoglobin 12.7, hematocrit 37.3, WBC 12.7, platelet count is 392. INR 1.24, PTT 25. Sodium 136, potassium 5.2, chloride 104, bicarbonate 24, BUN 19, creatinine 0.7, glucose 170, calcium is 8.3, phosphorus is 2.1, magnesium 2.4, AST 233, ALT 251, alk phos is 95, albumin is 2.7. IMPRESSION AND PLAN: Lung tumor, most likely malignant, status post biopsy with pneumothorax and hemoptysis, chronic obstructive lung disease, increased liver function tests, atrial fibrillation. Pulmonary point of view, he is doing much better. We will decrease Solu-Medrol to 40 every 12 hours. Continue inhaled bronchodilator, cough suppressor. Agree with the decision of radiation therapy that may help to decrease the hemoptysis as well. Aspiration precaution. Thank you and we will follow with you. Lenka García MD [facility] # [id number]
--- NOTE | 2017-10-05 16:30 | CP.PCM.PN ---
Subjective - Date & Time of Evaluation Date of Evaluation: 10/05/17 Time of Evaluation: 16:22 - Subjective Subjective: Sobeida Dukes, PGY2, Heme-Onc Progress Note for Dr Lomeli: Patient seen and examined at bedside. No acute events overnight. Patient continues to have blood tinged sputum, instructed patient to ask for cough medicine every 4 hours. Asked bedside nurse to give it to patient q 4 h as well. Patient had a BM this AM. Denies fevers, chills, cp, sob, nausea, vomiting , abdominal pain, leg swelling, petechia, hematochezia, diaphoresis, dizziness. Patient reports ongoing weakness. Objective - Vital Signs/Intake and Output Vital Signs (last 24 hours): Temp Pulse Resp BP Pulse Ox 98.7 F 84 18 120/66 96 10/05/17 12:00 10/05/17 12:00 10/05/17 12:00 10/05/17 12:00 10/05/17 06:00 Intake and Output: 10/05/17 10/05/17 06:59 18:59 Intake Total 600 Output Total 300 Balance 300 - Medications Medications: Current Medications Benzonatate (Tessalon Perles) 100 mg PO Q8 [facility] Last Admin: 10/05/17 13:24 Dose: 100 mg Guaifenesin/Codeine Phosphate (Robitussin W/Codeine) 5 ml PO Q4H PRN PRN Reason: Cough and congestion Last Admin: 10/05/17 01:51 Dose: 5 ml Ceftriaxone Sodium (Rocephin 1 Gram Ivpb) 1 gm in 100 mls @ 100 mls/hr IVPB DAILY [facility] PRN Reason: Protocol Last Admin: 10/04/17 09:02 Dose: 100 mls/hr Levalbuterol HCl (Xopenex) 0.63 mg IH Q2 PRN PRN Reason: Shortness of Breath Last Admin: 10/03/17 16:45 Dose: 0.63 mg Levalbuterol HCl (Xopenex) 0.63 mg IH [id number] [facility] Last Admin: 10/05/17 13:56 Dose: 0.63 mg Megestrol Acetate (Megace) 200 mg PO DAILY [facility] Last Admin: 10/05/17 11:25 Dose: 200 mg Methylprednisolone (Solu-Medrol) 40 mg IVP Q12 [facility] Oxycodone HCl (Oxycodone Immediate Release Tab) 5 mg PO Q6H PRN PRN Reason: Pain, moderate (4-7) Last Admin: 10/05/17 11:27 Dose: 5 mg Pantoprazole Sodium (Protonix Ec Tab) 40 mg PO 0600 [facility] Last Admin: 10/05/17 13:30 Dose: 40 mg Sotalol HCl (Betapace) 80 mg PO BID [facility] Last Admin: 10/05/17 11:29 Dose: 80 mg - Labs Labs: 10/05/17 05:30 10/05/17 05:30 PT 14.3 SECONDS (9.4-12.5) H 10/05/17 05:30 INR 1.24 10/05/17 05:30 APTT 25.3 Seconds (25.1-36.5) 10/05/17 05:30 - Additional Findings Additional findings: - Constitutional Appears: Older Than Stated Age, Chronically Ill - Head Exam Head Exam: ATRAUMATIC, NORMOCEPHALIC - Eye Exam Eye Exam: EOMI, PERRL. absent: Conjunctival injection, Nystagmus, Scleral icterus Pupil Exam: NORMAL ACCOMODATION, PERRL. absent: Miosis, Mydriatic, Unequal - ENT Exam ENT Exam: Mucous Membranes Moist - Neck Exam Neck Exam: Full ROM - Respiratory Exam Respiratory Exam: Decreased Breath Sounds Additional comments: + right sided chest dressing in place, c/d/i. tube removed last night - Cardiovascular Exam Cardiovascular Exam: RRR, +S1, +S2. absent: Murmur - GI/Abdominal Exam GI & Abdominal Exam: Soft, Normal Bowel Sounds. absent: Guarding, Rigid, Tenderness, Mass, Organomegaly, Rebound - Extremities Exam Extremities Exam: Normal Inspection. absent: Calf Tenderness, Pedal Edema - Back Exam Back Exam: NORMAL INSPECTION - Neurological Exam Neurological Exam: Alert, Awake, Oriented x3 - Psychiatric Exam Psychiatric exam: Normal Affect, Normal Mood - Skin Skin Exam: Dry, Normal Color, Warm Assessment and Plan - Assessment and Plan (Free Text) Assessment: 76 year old male with PMH gastric ulcer, gastritis, admitted for RLL pneumonia, found to have extensive mediastinal and hilar adenopathy and lytic lesions at T7 , other vertebral bodies and liver mets. Patient's hospital course complicated by onset of afib, started on heparin drip and cardizem. Patient underwent CT guided biopsy of hilar mass 10/01. Patient developed hemoptysis post procedure, started on radiation treatments urgently. Discussed with pathologist Dr Cage regarding patient's biopsy, like small cell lung carcinoma. Will keep on floor for chest port insertion, and likely chemotherapy on Sunday: - C/w Megace - c/w sotalol for afib - c/w IV antibiotics and IV steroids - Hold anticoagulation for afib due to hemoptysis. Consult with Cardio when warfarin/heparin needs to be resumed - Dr Toledo consulted for chest port insertion for chemotherapy. Left a message with Dr Toledo's nurse Myra, please follow up a time on Sunday. - chemotherapy on Sunday - monitor Case seen and discussed with Dr Lomeli.
[2017-10-05 17:28] LABS: HEPATITIS A IGM NEGATIVE (NEGATIVE); HEPATITIS B CORE AB NEGATIVE (NEGATIVE); HEPATITIS B SURFACE AG Negative (NEGATIVE); HEPATITIS C ANTIBODY Negative (NEGATIVE)
[2017-10-06] MEDS: Levalbuterol 0.63 MG/3 ML Inhal Soln UD IH SCH ×4 (01:08→21:05)
--- NOTE | 2017-10-06 02:25 | CON ---
DATE: 10/05/2017 REASON FOR CONSULTATION: Hyperkalemia. HISTORY OF PRESENT ILLNESS: A 76-year-old male previously unknown to me, admitted on 09/26/2017, with complaints of cough productive of clear sputum for a few months prior to presentation, shortness of breath, fatigue, decreased appetite, weight loss. The patient was thought to have community-acquired pneumonia. Workup during this hospitalization has revealed advanced lung CA with bone mets, mediastinum and hilar mets, lymphadenopathy. Now the patient is status post radiation treatments x6, he has 4 more treatments left. The patient was also found to have a obstructive pneumonia of the right lower lobe. The patient underwent lung biopsy and developed a pneumothorax, for which a chest tube was placed. Intermittently, his potassium has been running high. Consultation is requested for elevated potassium. PAST MEDICAL AND SURGICAL HISTORY: Gastric ulcer in 2014. No history of hypertension or diabetes. No surgical history. FAMILY HISTORY: CAD. SOCIAL HISTORY: Ex-smoker, quit about 5 years ago. Alcohol, one beer per week, no drug abuse. ALLERGIES: NO KNOWN DRUG ALLERGIES. MEDICATIONS AT HOME: None. REVIEW OF SYSTEMS: Shortness of breath, dyspnea on exertion, cough; no fever, no chills. Fatigue, weakness, weight loss. All other systems are reviewed and unremarkable. PHYSICAL EXAMINATION: GENERAL: Thinly built elderly male, lying in bed, in [id number] respiratory distress. VITAL SIGNS: Blood pressure 120/66, heart rate 84, respiratory rate 18 to 24, temperature 98. HEENT: Normocephalic, atraumatic, positive pallor. NECK: Supple, no JVD. LUNGS: Bilateral equal air entry, decreased breath sounds right side, rhonchi right side, wheezing. CARDIAC: S1 and S2, regular rate and rhythm, no murmur, no rub. ABDOMEN: Obese, soft, nondistended, nontender, bowel sounds present. EXTREMITIES: No lower extremity edema. INTAKE AND OUTPUT: 600/300. LABORATORY DATA: WBC 12.7, hemoglobin 12.7, hematocrit 37, platelets 392. Sodium 136, potassium 5.2, chloride 104, CO2 of 24, BUN 19, creatinine 0.7, glucose 170, calcium 8.3, phosphorus 2.1, magnesium 2.4, AST 233, ALT 251, albumin 2.7. Urinalysis, yellow, clear, pH 6.5, specific gravity 1.010, protein negative, blood trace intact, leukocyte esterase negative, rbc's 1 to 3, wbc's 0 to 2. Blood culture, no growth. CURRENT MEDICATIONS: Betapace b.i.d., Megace, oxycodone, Protonix, Robitussin with codeine, ceftriaxone 1 g daily, Solu-Medrol 40 IV every 12, Tessalon Perles, Xopenex, Kayexalate 15 g given this morning, potassium phosphate 1 packet b.i.d., Solu-Medrol. ASSESSMENT: 1. Stage IV lung cancer with bone mets, mediastinal metastases. 2. Hyperkalemia, mild. 3. Hypophosphatemia. 4. Rising liver function tests. 5. Rising white blood cell count. PLAN: 1. On review of the chart, it appears that the patient has been receiving potassium phosphate in order to replenish his phosphorus. Perhaps this is the etiology of his hyperkalemia. At this time, would recommend repleting phosphorus as sodium phosphate IV piggyback if needed, discontinue potassium phosphate. 2. Replenish phosphorus in diet. 3. Avoid use of Kayexalate. 4.. Monitor WBC count. WBC count has gone up from 10,000 to 14,000 even before the steroids have been started. Thank you for the courtesy of this consultation. We will follow this patient closely. Antonia Barrera MD
[2017-10-06] MEDS: Levalbuterol 0.63 MG/3 ML Inhal Soln UD IH PRN (05:30)
[2017-10-06] MEDS: Pantoprazole 40 mg EC Tab PO SCH (06:03)
[2017-10-06] MEDS: oxyCODONE 5 mg Immediate Release Tab PO PRN ×2 (06:03→15:11)
[2017-10-06] MEDS: guaiFENesin-Codeine 100-10mg/5ml Syrup (5 ml) UD PO PRN ×2 (06:04→21:54)
[2017-10-06 07:17] LABS: INR 1.27; PROTHROMBIN TIME 14.7 SECONDS (9.4-12.5)
[2017-10-06 07:19] LABS: PARTIAL THROMBOPLASTIN TIME 22.6 Seconds (25.1-36.5)
[2017-10-06 07:22] LABS: BASO # 0.01 K/mm3 (0.0-2.0); BASO % 0.1 % (0.0-3.0); GRAN # 10.93 (1.4-6.5); GRAN % 89.1 % (50.0-68.0); HEMOGLOBIN 13.3 g/dL (14.0-18.0); LYMPH # 0.3 (1.2-3.4); LYMPH % 2.8 % (22.0-35.0); MEAN CELL VOLUME 84.9 fl (80.0-105.0); MEAN CORPUSCULAR HEMOGLOBIN 28.7 pg (25.0-35.0); MEAN CORPUSCULAR HGB CONC 33.8 g/dl (31.0-37.0); MEAN PLATELET VOLUME 9.8 fl (7.0-11.0); RBC 4.64 10^6/uL (3.5-6.1); WHITE BLOOD COUNT 12.3 10^3/ul (4.5-11.0)
[2017-10-06 07:39] LABS: ALBUMIN 2.9 g/dL (3.0-4.8); ALT/SGPT 493 U/L (7-56); AST/SGOT 285 U/L (17-59); BLOOD UREA NITROGEN 24 mg/dL (7-21); CALCIUM 8.3 mg/dL (8.4-10.5); GFR AFRICAN-AMERICAN > 60; GFR NON-AFRICAN AMERICAN > 60
[2017-10-06] MEDS: Megestrol Acetate 40 mg/ml Cup PO SCH (09:40)
[2017-10-06] MEDS: MethylPREDNISolone 40 mg Vial IVP SCH ×2 (09:40→21:54)
--- NOTE | 2017-10-06 09:56 | PN ---
Copied To: Hansel Keenan MD Attending MD: Hansel Keenan MD DATE: 10/06/2017 SUBJECTIVE: The patient is currently seen on 3R. He is lying comfortable in bed with no acute issues. His potassium level had improved. It is down from 5.4 down to 5.2, now at 4.8. The patient remains off all potassium supplements. OBJECTIVE: INTAKE/OUTPUT: Intake 600, output 300. VITAL SIGNS: Blood pressure 113/60, temperature 97.5, respiratory rate 19 with a pulse of 60. HEENT: Shows him to be normocephalic, atraumatic. Conjunctivae are pink. Sclerae are nonicteric. NECK: Supple. No neck vein distention. CHEST: Clear to auscultation and percussion. No rales, rhonchi or wheezing. CARDIOVASCULAR: Shows an irregular S1, S2 with no audible murmurs, rubs or gallops. ABDOMEN: Soft. Bowel sounds normal. No rebound, guarding or masses. EXTREMITIES: Show no lower extremity cyanosis, clubbing or edema. MEDICATIONS: Medication list reviewed. The patient is currently on Betapace, Megace, oxycodone, Protonix, Robitussin with Codeine p.r.n., Rocephin is on hold, Solu-Medrol, Tessalon Perles and Xopenex. LABORATORY DATA AND IMAGING: CBC today, white blood cell count 12.3, hemoglobin 13.2 with a platelet count of 390,000. Chemistries showed normal electrolytes. Potassium is down to 4.8. BUN 24 with a creatinine of 0.8. Elevation of BUN likely IS secondary to use of steroids. Glucose is 204. Calcium is 8.3, corrects to normal. Phosphorus 2.5, now normal. Magnesium is 2.4. Liver enzymes do remain elevated. Microbiology, all cultures are negative at 5 days. ASSESSMENT: 1. Stage IV metastatic lung cancer with bone metastasis and metastasis to the mediastinum. The patient is scheduled for radiation therapy. 2. Status post mild hyperkalemia. This has resolved. The patient should be placed on a low-potassium diet for right now. Perhaps the elevated potassium was in part secondary to the use of potassium, phosphorus supplements. 3. Status post mild hypophosphatemia. Phosphorus level is now normal. 4. Elevated liver enzymes noted. PLAN: 1. Discussed with Dr. Larkin. I will place the patient on a low-potassium diet. Should the patient require phosphorus supplements, it would be reasonable to give him Neutra-Phos and we will continue to monitor levels with you should they rise. 2. Continued management as per Oncology and Radiation Therapy. 3. The patient is presently stable from renal standpoint. Mild elevation of BUN is secondary to the use of steroids. 4. We will continue to monitor the patient with you on a p.r.n. basis only. Hansel Keenan MD
--- NOTE | 2017-10-06 13:00 | CP.PCM.PN ---
<Aniket Rosenbaum - Last Filed: 10/06/17 13:00> Subjective - Date & Time of Evaluation Date of Evaluation: 10/06/17 Time of Evaluation: 07:30 - Subjective Subjective: PGY6 GI Fellow Progress Note Patient seen and examined bedside this morning. The patient states that he is feeling well today and has no new complaints. Eating breakfast without issue at time of interview. 12 system ROS performed and negative except where stated. Objective - Vital Signs/Intake and Output Vital Signs (last 24 hours): Temp Pulse Resp BP Pulse Ox 97.5 F L 60 19 113/60 98 10/06/17 06:00 10/06/17 06:00 10/06/17 06:00 10/06/17 06:00 10/06/17 06:00 - Medications Medications: Current Medications Benzonatate (Tessalon Perles) 100 mg PO Q8 [facility] Last Admin: 10/06/17 06:03 Dose: 100 mg Guaifenesin/Codeine Phosphate (Robitussin W/Codeine) 5 ml PO Q4H PRN PRN Reason: Cough and congestion Last Admin: 10/06/17 06:04 Dose: 5 ml Ceftriaxone Sodium (Rocephin 1 Gram Ivpb) 1 gm in 100 mls @ 100 mls/hr IVPB DAILY [facility] PRN Reason: Protocol Last Admin: 10/04/17 09:02 Dose: 100 mls/hr Levalbuterol HCl (Xopenex) 0.63 mg IH Q2 PRN PRN Reason: Shortness of Breath Last Admin: 10/06/17 05:30 Dose: 0.63 mg Levalbuterol HCl (Xopenex) 0.63 mg IH [id number] [facility] Last Admin: 10/06/17 07:59 Dose: 0.63 mg Megestrol Acetate (Megace) 200 mg PO DAILY [facility] Last Admin: 10/06/17 09:40 Dose: 200 mg Methylprednisolone (Solu-Medrol) 40 mg IVP Q12 [facility] Last Admin: 10/06/17 09:40 Dose: 40 mg Oxycodone HCl (Oxycodone Immediate Release Tab) 5 mg PO Q6H PRN PRN Reason: Pain, moderate (4-7) Last Admin: 10/06/17 06:03 Dose: 5 mg Pantoprazole Sodium (Protonix Ec Tab) 40 mg PO 0600 [facility] Last Admin: 10/06/17 06:03 Dose: 40 mg Sotalol HCl (Betapace) 80 mg PO BID [facility] Last Admin: 10/06/17 09:40 Dose: 80 mg - Labs Labs: 10/06/17 06:30 10/06/17 06:30 PT 14.7 SECONDS (9.4-12.5) H 10/06/17 06:30 INR 1.27 10/06/17 06:30 APTT 22.6 Seconds (25.1-36.5) L 10/06/17 06:30 - Constitutional Appears: Non-toxic, No Acute Distress - Eye Exam Eye Exam: EOMI, PERRL - ENT Exam ENT Exam: Mucous Membranes Moist - Respiratory Exam Respiratory Exam: Decreased Breath Sounds, Rales. absent: Rhonchi, Wheezes - Cardiovascular Exam Cardiovascular Exam: RRR, +S1, +S2 - GI/Abdominal Exam GI & Abdominal Exam: Soft, Normal Bowel Sounds. absent: Distended, Firm, Guarding, Rigid, Tenderness, Organomegaly - Extremities Exam Extremities Exam: Normal Inspection. 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 -Abnormal LFTs, hepatocellular pattern -Non-small cell lung cancer with metastasis Plan: -New onset elevated transaminases in hepatocellular pattern -Differential include decompensation in light of liver metastases, DILI with recent initiation of Ceftriaxone or possible compression of hepatic vasculature as a result of metastatic disease -Patient refusing MRI at this time given claustrophobia and previous negative experience -Trend LFTs -Will follow <Misa,Kovil V - Last Filed: 10/06/17 23:48> Objective - Vital Signs/Intake and Output Vital Signs (last 24 hours): Temp Pulse Resp BP Pulse Ox 97.8 F 67 22 114/60 97 10/06/17 16:48 10/06/17 16:48 10/06/17 16:48 10/06/17 17:22 10/06/17 16:48 Intake and Output: 10/06/17 10/07/17 18:59 06:59 Intake Total 1110 Balance 1110 - Medications Medications: Current Medications Benzonatate (Tessalon Perles) 100 mg PO Q8 [facility] Last Admin: 10/06/17 21:54 Dose: 100 mg Guaifenesin/Codeine Phosphate (Robitussin W/Codeine) 5 ml PO Q4H PRN PRN Reason: Cough and congestion Last Admin: 10/06/17 21:54 Dose: 5 ml Ceftriaxone Sodium (Rocephin 1 Gram Ivpb) 1 gm in 100 mls @ 100 mls/hr IVPB DAILY [facility] PRN Reason: Protocol Last Admin: 10/04/17 09:02 Dose: 100 mls/hr Levalbuterol HCl (Xopenex) 0.63 mg IH Q2 PRN PRN Reason: Shortness of Breath Last Admin: 10/06/17 05:30 Dose: 0.63 mg Levalbuterol HCl (Xopenex) 0.63 mg IH [id number] [facility] Last Admin: 10/06/17 21:05 Dose: 0.63 mg Megestrol Acetate (Megace) 200 mg PO DAILY [facility] Last Admin: 10/06/17 09:40 Dose: 200 mg Methylprednisolone (Solu-Medrol) 20 mg IVP Q12 [facility] Last Admin: 10/06/17 21:54 Dose: 20 mg Oxycodone HCl (Oxycodone Immediate Release Tab) 5 mg PO Q6H PRN PRN Reason: Pain, moderate (4-7) Last Admin: 10/06/17 15:11 Dose: 5 mg Pantoprazole Sodium (Protonix Ec Tab) 40 mg PO 0600 [facility] Last Admin: 10/06/17 06:03 Dose: 40 mg Sotalol HCl (Betapace) 80 mg PO BID [facility] Last Admin: 10/06/17 17:22 Dose: 80 mg - Labs Labs: 10/06/17 06:30 10/06/17 06:30 PT 14.7 SECONDS (9.4-12.5) H 10/06/17 06:30 INR 1.27 10/06/17 06:30 APTT 22.6 Seconds (25.1-36.5) L 10/06/17 06:30 Attending/Attestation - Attestation I have personally seen and examined this patient.: Yes I have fully participated in the care of the patient.: Yes I have reviewed all pertinent clinical information, including history, physical exam and plan: Yes Notes (Text): Associated This is an addendum to GI progress report dictated by the GI Fellow.The patient was seen and examined earlier. Medical records, lab studies , imagings were reviewed. Last 24 hours events reviewed. Agreed with the above treatment plan as outlined in GI Fellow 's notes with the addition of the following the differential diagnosis for elevated LFT in his case should include hepatic metastases, hepatic congestion secondary to venous compression, drug-induced Follow-up of LFT, patient is claustrophobic and refused MRI 10/06/17 23:46
--- NOTE | 2017-10-06 14:11 | US ---
Date of service: 10/05/2017 HISTORY: transaminitis COMPARISON: None. TECHNIQUE: Sonographic evaluation of the abdomen. FINDINGS: LIVER: Measures 14.28 x 13.05 cm. Increased echogenicity of the liver parenchyma. There are 2 separate hypoechoic lesions measuring 2 and 1.3 cm in diameter. These could be related to fatty infiltration GALLBLADDER: Unremarkable. No gallstones. COMMON BILE DUCT: Measures 4 mm. No stones. No dilatation. PANCREAS: Unremarkable as visualized. No mass. No ductal dilatation. RIGHT KIDNEY: Measures 9.42 x 6.03 x 5.24cm. Normal echogenicity. No calculus, mass, or hydronephrosis. 3 cm cyst LEFT KIDNEY: Measures 10.65 x 4.70 x 5.39cm. Normal echogenicity. No calculus, mass, or hydronephrosis. There are 3 separate cysts ranging in size from 1.5-3 cm in diameter SPLEEN: Normal in size and contour. No mass. AORTA: No aneurysmal dilatation. IVC: Unremarkable. OTHER FINDINGS: The report concurs with the preliminary [facility] report IMPRESSION: No acute findings
--- NOTE | 2017-10-06 15:16 | PN ---
Copied To: Curt Bernard MD Attending MD: Curt Bernard MD DATE: 10/06/2017 This is [facility] visit on the medical floor. For Dr. Lomeli. SUBJECTIVE: The patient is a 76-year-old male, seen lying awake in bed. Known to have stage IV metastatic lung carcinoma with hilar mass with suggestion of metastatic disease in the liver and bone with episode of atrial fibrillation, status post biopsy with results pending. At present, he is reporting that he feels well despite liver function tests being elevated for which a consult with Dr. Bynum was recommended, gastrointestinal evaluation. He still has occasional blood-tinged sputum with the patient's anticoagulation now on hold due to hemoptysis and he is due for a port to be placed in the near future with radiation by Dr. Kiah Iqbal as indicated. OBJECTIVE PHYSICAL EXAMINATION: VITAL SIGNS: Temperature 97.5, pulse 60, respirations 19, blood pressure 113/60, pulse ox 98%. HEENT: Unremarkable. NECK: Supple. HEART: Regular rate. Occasional ectopic beat. LUNGS: Occasional rhonchi. ABDOMEN: Soft, nontender. EXTREMITIES: No edema. SKIN: Warm and dry. NEUROLOGIC: Awake and alert. LABORATORY DATA: The patient's labs were done. White blood cell count of 12.3, hemoglobin 13.3, hematocrit 39.4, platelet count of 390,000 with a chem metabolic panel showing an AST of 285, up from 233 yesterday up from 39 three days prior. ALT of 493, up from 251 yesterday with a value of 51 four days prior. His T bili is 0.5. Otherwise, normal chem metabolic panel. He also has Mycoplasma pneumoniae IgG value elevated at 2.49 from 09/25/2017, less than 0.9 is considered acceptable. His pathology testing from biopsy done on 10/02/2017 is pending. ASSESSMENT: The assessment for this patient is that of right lower lobe pneumonia, improving; mediastinal hilar adenopathy; lytic lesion, T7; suspected lung cancer; atrial fibrillation, now converted to normal sinus with anticoagulation on hold; status post biopsy of hilar mass; hemoptysis; currently on radiation; probable stage IV metastatic lung cancer with bony metastasis; electrolyte imbalance, improved; abnormal liver function tests. PLAN: The plan for this patient is to continue present medical regimen including Sotalol twice a day with antibiotics as per Dr. Coker, IV steroids as per Dr. García with tissue diagnosis pending with further recommendations as per Dr. Jeremiah Toledo. Also, continue his radiation as per Dr. Kiah Iqbal. Again, with anticoagulation on hold for now. The prognosis for this patient is guarded. This is a complex patient with comprehensive medically necessary and appropriate visit carried out in excess of 20 minutes [id number] time with this patient with his medicines, tests reviewed as above and his nurse also giving information regarding the patient's care. We will also wait for an ultrasound of the abdomen which was ordered and a gastrointestinal evaluation with MARK Harris. We will monitor his liver function tests. Curt Bernard MD
--- NOTE | 2017-10-06 15:41 | CP.PCM.PN ---
<Robert Gonzalez - Last Filed: 10/06/17 15:37> Subjective - Date & Time of Evaluation Date of Evaluation: 10/06/17 Time of Evaluation: 09:00 - Subjective Subjective: PGY-[address] Larkin. No acute events noted overnight. Patient still has pinkish residue on his tissues but unclear if this is true hemoptysis or red colored robitussin - regardless it is less compared to yesterday. Otherwise patient doing well today - he said his cough is improved and he slept okay. Still with decreased appetite but improved from before. Understood he will get port and chemo possibly sunday. Denied shortness of breath, chest pain, vomiting, bleeding, fevers. Objective - Vital Signs/Intake and Output Vital Signs (last 24 hours): Temp Pulse Resp BP Pulse Ox 97.5 F L 60 19 113/60 98 10/06/17 06:00 10/06/17 06:00 10/06/17 06:00 10/06/17 06:00 10/06/17 06:00 - Medications Medications: Current Medications Benzonatate (Tessalon Perles) 100 mg PO Q8 [facility] Last Admin: 10/06/17 13:12 Dose: 100 mg Guaifenesin/Codeine Phosphate (Robitussin W/Codeine) 5 ml PO Q4H PRN PRN Reason: Cough and congestion Last Admin: 10/06/17 06:04 Dose: 5 ml Ceftriaxone Sodium (Rocephin 1 Gram Ivpb) 1 gm in 100 mls @ 100 mls/hr IVPB DAILY [facility] PRN Reason: Protocol Last Admin: 10/04/17 09:02 Dose: 100 mls/hr Levalbuterol HCl (Xopenex) 0.63 mg IH Q2 PRN PRN Reason: Shortness of Breath Last Admin: 10/06/17 05:30 Dose: 0.63 mg Levalbuterol HCl (Xopenex) 0.63 mg IH [id number] [facility] Last Admin: 10/06/17 13:44 Dose: 0.63 mg Megestrol Acetate (Megace) 200 mg PO DAILY [facility] Last Admin: 10/06/17 09:40 Dose: 200 mg Methylprednisolone (Solu-Medrol) 40 mg IVP Q12 [facility] Last Admin: 10/06/17 09:40 Dose: 40 mg Oxycodone HCl (Oxycodone Immediate Release Tab) 5 mg PO Q6H PRN PRN Reason: Pain, moderate (4-7) Last Admin: 10/06/17 15:11 Dose: 5 mg Pantoprazole Sodium (Protonix Ec Tab) 40 mg PO 0600 [facility] Last Admin: 10/06/17 06:03 Dose: 40 mg Sotalol HCl (Betapace) 80 mg PO BID [facility] Last Admin: 10/06/17 09:40 Dose: 80 mg - Labs Labs: 10/06/17 06:30 10/06/17 06:30 PT 14.7 SECONDS (9.4-12.5) H 10/06/17 06:30 INR 1.27 10/06/17 06:30 APTT 22.6 Seconds (25.1-36.5) L 10/06/17 06:30 - Additional Findings Additional findings: - Constitutional Appears: Well, Cachectic - Head Exam Head Exam: ATRAUMATIC, NORMAL INSPECTION, NORMOCEPHALIC - Eye Exam Eye Exam: EOMI, PERRL. absent: Scleral icterus - ENT Exam ENT Exam: Mucous Membranes Moist - Respiratory Exam Respiratory Exam: Rhonchi, Wheezes. absent: Respiratory Distress Additional comments: Patient is able to situp in bed under his own strength without any pain or grimacing. Does not appear to be dyspneic or in respiratory distress at this time. Some coughing is still appreciated w/ bloody sputum. No chest tube present ; Breath sounds are rhonchorus with some wheezing and crackles R > L. - Cardiovascular Exam Cardiovascular Exam: RRR, +S1, +S2 - GI/Abdominal Exam GI & Abdominal Exam: Soft. 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 Patient was biopsied on 10/02 and is currently receiving palliative radiation at this time. Hospital course was complicated by new onset Afib which is rate controlled w/ sotalol, and is not on anticoagulation. Tentative port placement on 10/08 with plans to start chemo-radiation on 10/08. Plan: Pulmonary Malignancy s/p CT guided biopsy POD#3 CT chest 09/25: extensive mediastinal and hilar lymphadenopathy suspicious for underlying pulmonary malignancy. Lytic lesion at T7 consistent with metastatic disease. Scattered sclerotic lesions. Extensive R lower lobe pneumonia. Ct abd/ pelvis 09/25: scattered osteoblastic lesions in multiple vertebral bodies, posterior elements and ribs. Age-indeterminate fracture of L4 superior end-plate , may be acute and/or pathologic. Low density lesion in anterolateral liver, metastasis suspected. Ct head 09/27: no evidence of metastatic disease, no acute intracranial findings Bone scan 09/26: findings consistent with bony metastatic disease Patient underwent CT guided biopsy of lung mass on 10/01, Pneumothorax present after w/ chest tube placement and removal. Patient still having some hemoptysis and SOB; however feels that his symptoms are significantly improved. Currently holding ceftriaxone due to Transaminitis this AM Consults: ID Consulted (Dr. Coker), recs appreciated Pulm consulted (Dr. Garíca), recs appreciated - c/w Xopenex Q6H , Solumedrol 40mg Q6H Heme/onc consulted (Dr. Lomeli), recs appreciated -c/w megace, pallative radiation as per IR, x1 treatment ChemoRad tentative on 10/08, possible port placement 10/[address] Cage regarding patient's biopsy, like small cell lung carcinoma, will await for official pathology reports: Radiation onc consulted (Dr. Iqbal), recs appreciated - Patient receiving pallative radiation Transaminitis New onset elevated transaminases in hepatocellular pattern Hepatotoxic meds discontinued yesterday Ceftriaxone discontinued 10/05/[address] Bynum, recs appreciated * Differential include decompensation in light of liver metastases, DILI with recent initiation of Ceftriaxone or possible compression of hepatic vasculature as a result of metastatic disease * Patient refusing MRI at this time given claustrophobia and previous negative experience Post-Obstructive Pneumonia Pt. is still afebrile at this time; only complaining of cough w/ bloody sputum Will c/w Ceftriaxone as above Will c/w Robitussin+Codeine PRN and Tessalon perles PRN C/w bronchodialator Xopenex as per pulm reccs Started Solumedrol 40 Q6H Sputum cx 09/25: moderate gram pos cocci in clusters, moderate pmn wbcs, few gram variable rods Blood cx 09/25: negative U/a 09/25: trace blood Procalcitonin elevated 8.8; Legionella Ag neg CXR on admission 09/25: extensive alveolar infiltrate in R lower lobe consistent with pneumonia Repeat CXR 09/26: unchanged from prior study Mycoplasma PNA IgG positive - likely patient had a pneumonia in past. ID consulted (Dr. Coker), recs appreciated Pulm consulted (Dr. García), recs appreciated New-onset atrial fibrillation with rapid ventricular response Rapid response called on 09/26/17; pt had additional episode overnight that converted back to normal sinus rhythm after several minutes spontaneously Will hold AC and start eliquis once hemoptysis subsides, and no further intervention planned Started Sotalol 80 BID for improved rate/rhythm control; patient's rate remained between 60-70 throughout the day today CTA 09/28 neg for FL Cardio consulted (Dr. Chirinos), recs appreciated Electrolyte abnormalities HyperK/ Hypophos / Hypocalcemic/ Hyper mag Continue following levels; treat/replete as necessary Nephrology consulted DVT/GI ppx: SCD /Protonix Disposition plan: Continue in patient management of cancer/hemoptysis. PT Eval to determine placement post chemo-rad treatment on 10/08. <Tru Larkin - Last Filed: 10/06/17 18:27> Objective - Vital Signs/Intake and Output Vital Signs (last 24 hours): Temp Pulse Resp BP Pulse Ox 97.8 F 67 22 114/60 97 10/06/17 16:48 10/06/17 16:48 10/06/17 16:48 10/06/17 17:22 10/06/17 16:48 Intake and Output: 10/06/17 10/06/17 06:59 18:59 Intake Total 1110 Balance 1110 - Medications Medications: Current Medications Benzonatate (Tessalon Perles) 100 mg PO Q8 [facility] Last Admin: 10/06/17 13:12 Dose: 100 mg Guaifenesin/Codeine Phosphate (Robitussin W/Codeine) 5 ml PO Q4H PRN PRN Reason: Cough and congestion Last Admin: 10/06/17 06:04 Dose: 5 ml Ceftriaxone Sodium (Rocephin 1 Gram Ivpb) 1 gm in 100 mls @ 100 mls/hr IVPB DAILY [facility] PRN Reason: Protocol Last Admin: 10/04/17 09:02 Dose: 100 mls/hr Levalbuterol HCl (Xopenex) 0.63 mg IH Q2 PRN PRN Reason: Shortness of Breath Last Admin: 10/06/17 05:30 Dose: 0.63 mg Levalbuterol HCl (Xopenex) 0.63 mg IH [id number] [facility] Last Admin: 10/06/17 13:44 Dose: 0.63 mg Megestrol Acetate (Megace) 200 mg PO DAILY [facility] Last Admin: 10/06/17 09:40 Dose: 200 mg Methylprednisolone (Solu-Medrol) 20 mg IVP Q12 [facility] Oxycodone HCl (Oxycodone Immediate Release Tab) 5 mg PO Q6H PRN PRN Reason: Pain, moderate (4-7) Last Admin: 10/06/17 15:11 Dose: 5 mg Pantoprazole Sodium (Protonix Ec Tab) 40 mg PO 0600 [facility] Last Admin: 10/06/17 06:03 Dose: 40 mg Sotalol HCl (Betapace) 80 mg PO BID [facility] Last Admin: 10/06/17 17:22 Dose: 80 mg - Labs Labs: 10/06/17 06:30 10/06/17 06:30 PT 14.7 SECONDS (9.4-12.5) H 10/06/17 06:30 INR 1.27 10/06/17 06:30 APTT 22.6 Seconds (25.1-36.5) L 10/06/17 06:30 Attending/Attestation - Attestation I have personally seen and examined this patient.: Yes I have fully participated in the care of the patient.: Yes I have reviewed all pertinent clinical information, including history, physical exam and plan: Yes Notes (Text): 10/06/17 18:24 76 year old male with past medical history of chronic smoking (quit ~5 years ago ) who presented with complaint of cough and shortness of breath. CT chest showed right lower lobe pneumonia, likely post obstructive, with diffuse moderate mediastinal lymphadenopathy and lesions suggestive of mets. CT abd/pelvis also revealed liver lesion and possible lumbar spine metastasis. Hem/Onc, Rad/Onc, ID and pulmonary are following. Patient is s/p lung biopsy earlier this week. Official biopsy is pending, preliminary is small cell per pathology. Post-procedure had pneumothorax for which chest tube was placed. Chest tube was later removed by IR. Patient is started on palliative radiation therapy. Plan is port-a-cath on Sunday followed by chemotherapy. Patient also had paroxysmal afib for which he is on sotalol for rate control. Cardiology is following. Anticoagulation is on hold for now due to hemoptysis which is improving. Will discuss with cardiology and hematology before resuming. Patient was noted to have transaminitis for which GI is following. US abdomen was reviewed. Patient refused MRI/MRCP due to claustrophobia. Hepatitis panel was negative. Ceftriaxone is on hold. Will continue to monitor LFTs closely. Tru Larkin MD Hospitalist.
--- NOTE | 2017-10-06 17:16 | CP.PCM.PN ---
Subjective - Date & Time of Evaluation Date of Evaluation: 10/06/17 Time of Evaluation: 15:45 - Subjective Subjective: Infectious Disease Follow Up: October 06, 2017 76 yo male with presentation of SOB and cough productive of sputum. The patient has had symptoms for the past 3 weeks. He was recently in [place] for his son's wedding. Patient states that "food does not taste the same". He has lost [address] scan showing extensive right lower lobe pneumonia but what is more concerning is the extensive mediastinal and hilar adenopathy with lytic lesion at T7. The patient has been started on IV Rocephin and Azithromycin for antibiotic care. No WBC. Procalcitonin of 8.8 at this time. New onset Atrial Fibrillation two nights ago... transferred to telemetry. The family and the patient have been refusing biopsy at this time. Emphasized to the patient and present family members (daughter and son-in-law) importance of the biopsy in determining diagnosis and type of treatment options available for the patient. Patient states that he is not sleeping well in the hospital. Noted the patient with Atrial fibrillation last night. Taken for lung biopsy this week. The patient with hemoptysis. Seen by radiation oncology Dr. Iqbal for palliative radiation evaluation. Receiving radiation. Noted transaminitis. Hemoptysis improving. Pain in chest/lungs subsiding. Appetite still weak. For Port-A-Cath on Sunday and to start chemotherapy. Objective - Vital Signs/Intake and Output Vital Signs (last 24 hours): Temp Pulse Resp BP Pulse Ox 97.8 F 67 22 114/60 97 10/06/17 16:48 10/06/17 16:48 10/06/17 16:48 10/06/17 16:48 10/06/17 16:48 - Medications Medications: Current Medications Benzonatate (Tessalon Perles) 100 mg PO Q8 [facility] Last Admin: 10/06/17 13:12 Dose: 100 mg Guaifenesin/Codeine Phosphate (Robitussin W/Codeine) 5 ml PO Q4H PRN PRN Reason: Cough and congestion Last Admin: 10/06/17 06:04 Dose: 5 ml Ceftriaxone Sodium (Rocephin 1 Gram Ivpb) 1 gm in 100 mls @ 100 mls/hr IVPB DAILY [facility] PRN Reason: Protocol Last Admin: 10/04/17 09:02 Dose: 100 mls/hr Levalbuterol HCl (Xopenex) 0.63 mg IH Q2 PRN PRN Reason: Shortness of Breath Last Admin: 10/06/17 05:30 Dose: 0.63 mg Levalbuterol HCl (Xopenex) 0.63 mg IH [id number] [facility] Last Admin: 10/06/17 13:44 Dose: 0.63 mg Megestrol Acetate (Megace) 200 mg PO DAILY [facility] Last Admin: 10/06/17 09:40 Dose: 200 mg Methylprednisolone (Solu-Medrol) 40 mg IVP Q12 [facility] Last Admin: 10/06/17 09:40 Dose: 40 mg Oxycodone HCl (Oxycodone Immediate Release Tab) 5 mg PO Q6H PRN PRN Reason: Pain, moderate (4-7) Last Admin: 10/06/17 15:11 Dose: 5 mg Pantoprazole Sodium (Protonix Ec Tab) 40 mg PO 0600 [facility] Last Admin: 10/06/17 06:03 Dose: 40 mg Sotalol HCl (Betapace) 80 mg PO BID [facility] Last Admin: 10/06/17 09:40 Dose: 80 mg - Labs Labs: 10/06/17 06:30 10/06/17 06:30 PT 14.7 SECONDS (9.4-12.5) H 10/06/17 06:30 INR 1.27 10/06/17 06:30 APTT 22.6 Seconds (25.1-36.5) L 10/06/17 06:30 - Constitutional Appears: Non-toxic, No Acute Distress, Chronically Ill - Head Exam Head Exam: ATRAUMATIC, NORMOCEPHALIC - Eye Exam Eye Exam: EOMI, PERRL Pupil Exam: NORMAL ACCOMODATION, PERRL - ENT Exam ENT Exam: Mucous Membranes Moist, Normal External Ear Exam, TM's Normal Bilaterally - Neck Exam Neck Exam: Full ROM, Normal Inspection - Respiratory Exam Respiratory Exam: Clear to Ausculation Bilateral, NORMAL BREATHING PATTERN. absent: Rales, Rhonchi, Wheezes - Cardiovascular Exam Cardiovascular Exam: REGULAR RHYTHM, RRR, +S1, +S2 - GI/Abdominal Exam GI & Abdominal Exam: Soft, Normal Bowel Sounds. absent: Distended, Tenderness - Extremities Exam Extremities Exam: Full ROM, Normal Inspection - Neurological Exam Neurological Exam: Alert, Awake, CN II-XII Intact, Oriented x3 - Psychiatric Exam Psychiatric exam: Normal Affect, Normal Mood - Skin Skin Exam: Intact, Normal Color Assessment and Plan - Assessment and Plan (Free Text) Assessment: 76 yo male with large amount of weight loss (19 lbs) and multiple CT lung findings. The patient started on Ceftriaxone and Azithromycin. Must rule out malignancy. Check for Tuberculosis. Check PPD and Quantiferon. Consider surgery or IR evaluation for biopsy of suspicious areas. Supportive care. May need Heme/Onc evaluation as well. Check ESR and C-Reactive Protein. The most likely diagnosis given the current symptoms is malignancy. Given overall picture, Tuberculosis is a much less likely diagnosis. Malignancy is extremely likely. Overall usp prognosis is very poor. Discussed with family and the patient importance of a biopsy in determining diagnosis and available care/ treatment options. Rocephin on hold due to sudden transaminitis. Taken for lung/liver biopsy. Pathology pending. Patient has chest tube in place for pneumothorax from procedure. Hemoptysis improving. For Port-A-Cath on Sunday and possible chemotherapy. Thank you for allowing me to participate in the care of the patient, we will follow with you.
--- NOTE | 2017-10-06 22:31 | PN ---
Copied To: Lenka García MD Attending MD: Lenka García MD DATE: 10/06/2017 REFERRING PHYSICIAN: Dr. Larkin SUBJECTIVE: He is lying in the bed, head at 45 degrees. Night was unremarkable. Feels a little better. Decreased cough, decreased hemoptysis. No nausea, no vomiting, no diarrhea. No leg pain or leg swelling. OBJECTIVE: GENERAL: In no acute distress. VITAL SIGNS: Temperature is 98, heart rate is 67, respiratory rate is 20, blood pressure 114/60, pulse ox 97%on nasal cannula. HEENT: Moist mucous membrane. No ulcer or thrush noted. NECK: Supple. No JVD. LUNGS: Have a few scattered rhonchi and crackles. HEART: S1 and S2. ABDOMEN: Soft, nontender. No organomegaly. EXTREMITIES: No edema. NEUROLOGIC: Awake, alert, follows simple command. MEDICATIONS: He is on Betapace 80 mg twice a day, Megace 200 mg daily, oxycodone immediate release 5 mg every 6 hours p.r.n., Protonix 40 mg daily, Robitussin with codeine every 4 hours p.r.n., Rocephin 1 g IV daily, Solu-Medrol 40 mg every 12 hours, Tessalon Perles 100 mg every 8 hours, Xopenex inhaled every 2 hours p.r.n. and every 6 hours round the clock. LABORATORY DATA: Shows hemoglobin 13.3, hematocrit 39.4, WBC 12.3, platelet count is 390. INR 1.27. PTT is 23. Sodium 136, potassium 4.8, chloride 100, bicarbonate 27, BUN 24, creatinine 0.8, glucose 204, calcium 8.3, phosphorus 2.5, magnesium 2.4, AST 285, ALT 493, alk phos is 100. Albumin is 2.9. Microbiology, blood culture and sputum culture, there is no growth. IMPRESSION AND PLAN: Unresectable lung cancer, official pathology report is still pending, status post pneumothorax and hemoptysis, chronic obstructive lung disease and atrial fibrillation. Pulmonary point of view, he is doing well. Decrease Solu-Medrol to 20 every 12 hours, continue cough suppressors, inhaled bronchodilator, being prepare for possible chemotherapy and radiation therapy. Continue SCDs to lower extremity, gastric prophylaxis, deep vein thrombosis prophylaxis. Thank you and we will follow with you. Lenka García MD
[2017-10-07] MEDS: Levalbuterol 0.63 MG/3 ML Inhal Soln UD IH SCH ×4 (02:25→20:27)
[2017-10-07] MEDS: oxyCODONE 5 mg Immediate Release Tab PO PRN (05:59)
[2017-10-07] MEDS: Pantoprazole 40 mg EC Tab PO SCH (06:00)
[2017-10-07 07:25] LABS: INR 1.23; PARTIAL THROMBOPLASTIN TIME 23.8 Seconds (25.1-36.5); PROTHROMBIN TIME 14.2 SECONDS (9.4-12.5)
[2017-10-07 07:43] LABS: ALB/GLOB RATIO 0.9 (1.1-1.8); ALBUMIN 2.7 g/dL (3.0-4.8); ALT/SGPT 451 U/L (7-56); AST/SGOT 179 U/L (17-59); BLOOD UREA NITROGEN 23 mg/dL (7-21); CALCIUM 8.6 mg/dL (8.4-10.5); GFR AFRICAN-AMERICAN > 60; GFR NON-AFRICAN AMERICAN > 60
[2017-10-07] MEDS: Megestrol Acetate 40 mg/ml Cup PO SCH (09:26)
[2017-10-07] MEDS: MethylPREDNISolone 40 mg Vial IVP SCH (09:27)
[2017-10-07] MEDS ORDERED: Sodium Phosphate 15 MMOLE in Sodium Chloride 0.9% 250 ML IVPB ONE (10:51)
--- NOTE | 2017-10-07 11:45 | CP.PCM.PN ---
<Robert Gonzalez - Last Filed: 10/07/17 11:38> Subjective - Date & Time of Evaluation Date of Evaluation: 10/07/17 Time of Evaluation: 11:38 - Subjective Subjective: PGY-[address] Larkin. No acute events noted overnight. Patient stated his cough has improved. Patient still has pinkish residue on his tissues but unclear if this is true hemoptysis or red colored robitussin - regardless it is resolving. He is aware he will get port placement tomorrow and that he will be npo after midnight. Denied shortness of breath, chest pain, vomiting, bleeding, fevers. Objective - Vital Signs/Intake and Output Vital Signs (last 24 hours): Temp Pulse Resp BP Pulse Ox 96.4 F L 65 19 125/63 100 10/07/17 06:00 10/07/17 06:00 10/07/17 06:00 10/07/17 06:00 10/07/17 06:00 - Medications Medications: Current Medications Benzonatate (Tessalon Perles) 100 mg PO Q8 [facility] Last Admin: 10/07/17 06:00 Dose: 100 mg Guaifenesin/Codeine Phosphate (Robitussin W/Codeine) 5 ml PO Q4H PRN PRN Reason: Cough and congestion Last Admin: 10/06/17 21:54 Dose: 5 ml Ceftriaxone Sodium (Rocephin 1 Gram Ivpb) 1 gm in 100 mls @ 100 mls/hr IVPB DAILY [facility] PRN Reason: Protocol Last Admin: 10/04/17 09:02 Dose: 100 mls/hr Sodium Phosphate 15 mmole/ (Sodium Chloride) 255 mls @ 42.5 mls/hr IVPB ONCE ONE Stop: 10/07/17 16:50 Last Admin: 10/07/17 11:17 Dose: 42.5 mls/hr Levalbuterol HCl (Xopenex) 0.63 mg IH Q2 PRN PRN Reason: Shortness of Breath Last Admin: 10/06/17 05:30 Dose: 0.63 mg Levalbuterol HCl (Xopenex) 0.63 mg IH [id number] [facility] Last Admin: 10/07/17 07:28 Dose: 0.63 mg Megestrol Acetate (Megace) 200 mg PO DAILY [facility] Last Admin: 10/07/17 09:26 Dose: 200 mg Methylprednisolone (Solu-Medrol) 20 mg IVP Q12 [facility] Last Admin: 10/07/17 09:27 Dose: 20 mg Oxycodone HCl (Oxycodone Immediate Release Tab) 5 mg PO Q6H PRN PRN Reason: Pain, moderate (4-7) Last Admin: 10/07/17 05:59 Dose: 5 mg Pantoprazole Sodium (Protonix Ec Tab) 40 mg PO 0600 [facility] Last Admin: 10/07/17 06:00 Dose: 40 mg Sotalol HCl (Betapace) 80 mg PO BID [facility] Last Admin: 10/07/17 09:26 Dose: 80 mg - Labs Labs: 10/06/17 06:30 10/07/17 06:00 PT 14.2 SECONDS (9.4-12.5) H 10/07/17 06:00 INR 1.23 10/07/17 06:00 APTT 23.8 Seconds (25.1-36.5) L 10/07/17 06:00 - Additional Findings Additional findings: - Constitutional Appears: Well, Cachectic - Head Exam Head Exam: ATRAUMATIC, NORMAL INSPECTION, NORMOCEPHALIC - Eye Exam Eye Exam: EOMI, PERRL. absent: Scleral icterus - ENT Exam ENT Exam: Mucous Membranes Moist - Respiratory Exam Respiratory Exam: Rhonchi, Wheezes. absent: Respiratory Distress Additional comments: Patient is able to situp in bed under his own strength without any pain or grimacing. Does not appear to be dyspneic or in respiratory distress at this time. Some coughing is still appreciated w/ bloody sputum. No chest tube present ; Breath sounds are rhonchorus with some wheezing and crackles R > L. - Cardiovascular Exam Cardiovascular Exam: RRR, +S1, +S2 - GI/Abdominal Exam GI & Abdominal Exam: Soft. 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 Patient was biopsied on 10/02 and is currently receiving palliative radiation at this time. Hospital course was complicated by new onset Afib which is rate controlled w/ sotalol, and is not on anticoagulation. Tentative port placement on 10/08 with plans to start chemo-radiation on 10/08. Plan: Pulmonary Malignancy s/p CT guided biopsy CT chest 09/25: extensive mediastinal and hilar lymphadenopathy suspicious for underlying pulmonary malignancy. Lytic lesion at T7 consistent with metastatic disease. Scattered sclerotic lesions. Extensive R lower lobe pneumonia. Ct abd/ pelvis 09/25: scattered osteoblastic lesions in multiple vertebral bodies, posterior elements and ribs. Age-indeterminate fracture of L4 superior end-plate , may be acute and/or pathologic. Low density lesion in anterolateral liver, metastasis suspected. Ct head 09/27: no evidence of metastatic disease, no acute intracranial findings Bone scan 09/26: findings consistent with bony metastatic disease Patient underwent CT guided biopsy of lung mass on 10/01 complicated by pneumothorax now resolved; chest tube was placed due to pneumothorax and has now been removed Patient hemoptysis improving (true hemoptysis or red colored robitussin?) Currently holding ceftriaxone due to Transaminitis this AM Consults: ID Consulted (Dr. Coker), recs appreciated Pulm consulted (Dr. García), recs appreciated - c/w Xopenex Q6H , Solumedrol 20mg Q12H Heme/onc consulted (Dr. Lomeli), recs appreciated -c/w megace, pallative radiation as per IR, x1 treatment ChemoRad tentative on 10/08, possible port placement 10/[address] Cage regarding patient's biopsy, like small cell lung carcinoma, will await for official pathology reports: Radiation onc consulted (Dr. Iqbal), recs appreciated - Patient receiving pallative radiation Transaminitis, Down Trending New onset elevated transaminases in hepatocellular pattern Hepatotoxic meds discontinued yesterday Ceftriaxone discontinued 10/05/[address] Bynum, recs appreciated * Differential include decompensation in light of liver metastases, DILI with recent initiation of Ceftriaxone or possible compression of hepatic vasculature as a result of metastatic disease * Patient refusing MRI at this time given claustrophobia and previous negative experience Post-Obstructive Pneumonia Pt. is still afebrile at this time; only complaining of cough w/ bloody sputum Will c/w Ceftriaxone as above Will c/w Robitussin+Codeine PRN and Tessalon perles PRN C/w bronchodialator Xopenex as per pulm reccs Started Solumedrol 40 Q6H Sputum cx 09/25: moderate gram pos cocci in clusters, moderate pmn wbcs, few gram variable rods Blood cx 09/25: negative U/a 09/25: trace blood Procalcitonin elevated 8.8; Legionella Ag neg CXR on admission 09/25: extensive alveolar infiltrate in R lower lobe consistent with pneumonia Repeat CXR 09/26: unchanged from prior study Mycoplasma PNA IgG positive - likely patient had a pneumonia in past. ID consulted (Dr. Coker), recs appreciated Pulm consulted (Dr. García), recs appreciated New-onset atrial fibrillation with rapid ventricular response Rapid response called on 09/26/17; pt had additional episode overnight that converted back to normal sinus rhythm after several minutes spontaneously Will hold AC and start eliquis once hemoptysis subsides, and no further intervention planned Started Sotalol 80 BID for improved rate/rhythm control; patient's rate remained between 60-70 throughout the day today CTA 09/28 neg for [place] Cardio consulted (Dr. Chirinos), recs appreciated Electrolyte abnormalities HyperK/ Hypophos / Hyper mag Continue following levels; treat/replete as necessary Nephrology (Dr Barrera) has signed off DVT/GI ppx: SCD /Protonix Disposition plan: Continue in patient management of cancer/hemoptysis. PT Eval to determine placement post chemo-rad treatment on 10/08. <Tru Larkin - Last Filed: 10/07/17 12:55> Objective - Vital Signs/Intake and Output Vital Signs (last 24 hours): Temp Pulse Resp BP Pulse Ox 96.4 F L 65 19 125/63 100 10/07/17 06:00 10/07/17 06:00 10/07/17 06:00 10/07/17 06:00 10/07/17 06:00 - Medications Medications: Current Medications Benzonatate (Tessalon Perles) 100 mg PO Q8 [facility] Last Admin: 10/07/17 06:00 Dose: 100 mg Guaifenesin/Codeine Phosphate (Robitussin W/Codeine) 5 ml PO Q4H PRN PRN Reason: Cough and congestion Last Admin: 10/06/17 21:54 Dose: 5 ml Ceftriaxone Sodium (Rocephin 1 Gram Ivpb) 1 gm in 100 mls @ 100 mls/hr IVPB DAILY [facility] PRN Reason: Protocol Last Admin: 10/04/17 09:02 Dose: 100 mls/hr Sodium Phosphate 15 mmole/ (Sodium Chloride) 255 mls @ 42.5 mls/hr IVPB ONCE ONE Stop: 10/07/17 16:50 Last Admin: 10/07/17 11:17 Dose: 42.5 mls/hr Levalbuterol HCl (Xopenex) 0.63 mg IH Q2 PRN PRN Reason: Shortness of Breath Last Admin: 10/06/17 05:30 Dose: 0.63 mg Levalbuterol HCl (Xopenex) 0.63 mg IH [id number] [facility] Last Admin: 10/07/17 07:28 Dose: 0.63 mg Megestrol Acetate (Megace) 200 mg PO DAILY [facility] Last Admin: 10/07/17 09:26 Dose: 200 mg Methylprednisolone (Solu-Medrol) 20 mg IVP Q12 [facility] Last Admin: 10/07/17 09:27 Dose: 20 mg Oxycodone HCl (Oxycodone Immediate Release Tab) 5 mg PO Q6H PRN PRN Reason: Pain, moderate (4-7) Last Admin: 10/07/17 05:59 Dose: 5 mg Pantoprazole Sodium (Protonix Ec Tab) 40 mg PO 0600 [facility] Last Admin: 10/07/17 06:00 Dose: 40 mg Sotalol HCl (Betapace) 80 mg PO BID [facility] Last Admin: 10/07/17 09:26 Dose: 80 mg - Labs Labs: 10/06/17 06:30 10/07/17 06:00 PT 14.2 SECONDS (9.4-12.5) H 10/07/17 06:00 INR 1.23 10/07/17 06:00 APTT 23.8 Seconds (25.1-36.5) L 10/07/17 06:00 Attending/Attestation - Attestation I have personally seen and examined this patient.: Yes I have fully participated in the care of the patient.: Yes I have reviewed all pertinent clinical information, including history, physical exam and plan: Yes Notes (Text): 10/07/17 12:45 76 year old male with past medical history of chronic smoking (quit ~5 years ago ) who presented with complaint of cough and shortness of breath. CT chest showed right lower lobe pneumonia, likely post obstructive, with diffuse moderate mediastinal lymphadenopathy and lesions suggestive of mets. CT abd/pelvis also revealed liver lesion and possible lumbar spine metastasis. Hem/Onc, Rad/Onc, ID and pulmonary are following. Patient is s/p lung biopsy last week. Official biopsy is pending, preliminary is small cell per pathology. Post-procedure had pneumothorax for which chest tube was placed. Chest tube was later removed by IR. Patient is started on palliative radiation therapy. Plan is port-a-cath tomorrow followed by chemotherapy. Patient also had paroxysmal afib for which he is on sotalol for rate control. Anticoagulation is on hold for now due to hemoptysis has improved. Will discuss with cardiology and hematology tomorrow post procedure if to resume anticoagulation. Patient was noted to have transaminitis for which GI is following. US abdomen was reviewed. Patient refused MRI/MRCP due to claustrophobia. Hepatitis panel was negative. Ceftriaxone is on hold. Will continue to monitor LFTs closely which is slightly improving. Tru Larkin MD Hospitalist.
[2017-10-07] MEDS: guaiFENesin-Codeine 100-10mg/5ml Syrup (5 ml) UD PO PRN ×2 (13:28→21:54)
--- NOTE | 2017-10-07 13:45 | CP.PCM.PN ---
<Aniket Rosenbaum - Last Filed: 10/07/17 13:42> Subjective - Date & Time of Evaluation Date of Evaluation: 10/07/17 Time of Evaluation: 08:40 - Subjective Subjective: PGY6 GI Fellow Progress Note Patient seen and examined bedside this morning. The patient states that he is feeling well and has no complaints presently. No events overnight. 12 system ROS performed and negative except where stated Objective - Vital Signs/Intake and Output Vital Signs (last 24 hours): Temp Pulse Resp BP Pulse Ox 96.4 F L 65 19 125/63 100 10/07/17 06:00 10/07/17 06:00 10/07/17 06:00 10/07/17 06:00 10/07/17 06:00 Intake and Output: 10/07/17 10/07/17 06:59 18:59 Intake Total 100 Balance 100 - Medications Medications: Current Medications Benzonatate (Tessalon Perles) 100 mg PO Q8 [facility] Last Admin: 10/07/17 13:29 Dose: 100 mg Guaifenesin/Codeine Phosphate (Robitussin W/Codeine) 5 ml PO Q4H PRN PRN Reason: Cough and congestion Last Admin: 10/07/17 13:28 Dose: 5 ml Ceftriaxone Sodium (Rocephin 1 Gram Ivpb) 1 gm in 100 mls @ 100 mls/hr IVPB DAILY [facility] PRN Reason: Protocol Last Admin: 10/04/17 09:02 Dose: 100 mls/hr Sodium Phosphate 15 mmole/ (Sodium Chloride) 255 mls @ 42.5 mls/hr IVPB ONCE ONE Stop: 10/07/17 16:50 Last Admin: 10/07/17 11:17 Dose: 42.5 mls/hr Levalbuterol HCl (Xopenex) 0.63 mg IH Q2 PRN PRN Reason: Shortness of Breath Last Admin: 10/06/17 05:30 Dose: 0.63 mg Levalbuterol HCl (Xopenex) 0.63 mg IH [id number] [facility] Last Admin: 10/07/17 13:31 Dose: 0.63 mg Megestrol Acetate (Megace) 200 mg PO DAILY [facility] Last Admin: 10/07/17 09:26 Dose: 200 mg Methylprednisolone (Solu-Medrol) 20 mg IVP Q12 [facility] Last Admin: 10/07/17 09:27 Dose: 20 mg Oxycodone HCl (Oxycodone Immediate Release Tab) 5 mg PO Q6H PRN PRN Reason: Pain, moderate (4-7) Last Admin: 10/07/17 05:59 Dose: 5 mg Pantoprazole Sodium (Protonix Ec Tab) 40 mg PO 0600 [facility] Last Admin: 10/07/17 06:00 Dose: 40 mg Sotalol HCl (Betapace) 80 mg PO BID [facility] Last Admin: 10/07/17 09:26 Dose: 80 mg - Labs Labs: 10/06/17 06:30 10/07/17 06:00 PT 14.2 SECONDS (9.4-12.5) H 10/07/17 06:00 INR 1.23 10/07/17 06:00 APTT 23.8 Seconds (25.1-36.5) L 10/07/17 06:00 - Constitutional Appears: No Acute Distress, Chronically Ill - Eye Exam Eye Exam: EOMI, PERRL - ENT Exam ENT Exam: Mucous Membranes Moist - Respiratory Exam Respiratory Exam: Clear to Ausculation Bilateral. absent: Rales, Rhonchi, Wheezes - Cardiovascular Exam Cardiovascular Exam: RRR, +S1, +S2 - GI/Abdominal Exam GI & Abdominal Exam: Soft, Normal Bowel Sounds. absent: Distended, Firm, Guarding, Rigid, Tenderness, Organomegaly - Extremities Exam Extremities Exam: Normal Inspection. 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 -Abnormal LFTs, hepatocellular pattern -Non-small cell lung cancer with metastasis Plan: -LFTs downtrending again today -Would recommend D/C of ceftriaxone (currently held) -Differential include decompensation in light of liver metastases, DILI with recent initiation of Ceftriaxone or possible compression of hepatic vasculature as a result of metastatic disease -Patient refusing MRI at this time given claustrophobia and previous negative experience -No other interventions/work up planned by our service at this time <Misa,Kovil V - Last Filed: 10/07/17 23:36> Objective - Vital Signs/Intake and Output Vital Signs (last 24 hours): Temp Pulse Resp BP Pulse Ox 98.0 F 60 18 101/59 L 96 10/07/17 17:16 10/07/17 17:16 10/07/17 18:47 10/07/17 17:16 10/07/17 17:16 Intake and Output: 10/07/17 10/08/17 18:59 06:59 Intake Total 450 Balance 450 - Medications Medications: Current Medications Benzonatate (Tessalon Perles) 100 mg PO Q8 [facility] Last Admin: 10/07/17 21:54 Dose: 100 mg Guaifenesin/Codeine Phosphate (Robitussin W/Codeine) 5 ml PO Q4H PRN PRN Reason: Cough and congestion Last Admin: 10/07/17 21:54 Dose: 5 ml Levalbuterol HCl (Xopenex) 0.63 mg IH Q2 PRN PRN Reason: Shortness of Breath Last Admin: 10/06/17 05:30 Dose: 0.63 mg Levalbuterol HCl (Xopenex) 0.63 mg IH [id number] [facility] Last Admin: 10/07/17 20:27 Dose: 0.63 mg Megestrol Acetate (Megace) 200 mg PO DAILY [facility] Last Admin: 10/07/17 09:26 Dose: 200 mg Methylprednisolone (Solu-Medrol) 20 mg IVP DAILY [facility] Oxycodone HCl (Oxycodone Immediate Release Tab) 5 mg PO Q6H PRN PRN Reason: Pain, moderate (4-7) Last Admin: 10/07/17 05:59 Dose: 5 mg Pantoprazole Sodium (Protonix Ec Tab) 40 mg PO 0600 [facility] Last Admin: 10/07/17 06:00 Dose: 40 mg Sotalol HCl (Betapace) 80 mg PO BID [facility] Last Admin: 10/07/17 17:21 Dose: 80 mg - Labs Labs: 10/06/17 06:30 10/07/17 06:00 PT 14.2 SECONDS (9.4-12.5) H 10/07/17 06:00 INR 1.23 10/07/17 06:00 APTT 23.8 Seconds (25.1-36.5) L 10/07/17 06:00 Attending/Attestation - Attestation I have personally seen and examined this patient.: Yes I have fully participated in the care of the patient.: Yes I have reviewed all pertinent clinical information, including history, physical exam and plan: Yes Notes (Text): This is an addendum to GI progress report dictated by the GI Fellow.The patient was seen and examined earlier. Medical records, lab studies, imagings were reviewed. Last 24 hours events reviewed. Agreed with the above treatment plan as outlined in GI Fellow 's notes with the addition of the following He left he shows downward trend Patient is claustrophobic MRI deferred Follow-up LFT 10/07/17 23:35
--- NOTE | 2017-10-07 17:23 | CP.PCM.PN ---
Subjective - Date & Time of Evaluation Date of Evaluation: 10/07/17 Time of Evaluation: 15:45 - Subjective Subjective: Infectious Disease Follow Up: October 07, 2017 76 yo male with presentation of SOB and cough productive of sputum. The patient has had symptoms for the past 3 weeks. He was recently in [place] for his son's wedding. Patient states that "food does not taste the same". He has lost [address] scan showing extensive right lower lobe pneumonia but what is more concerning is the extensive mediastinal and hilar adenopathy with lytic lesion at T7. The patient has been started on IV Rocephin and Azithromycin for antibiotic care. No WBC. Procalcitonin of 8.8 at this time. New onset Atrial Fibrillation two nights ago... transferred to telemetry. The family and the patient have been refusing biopsy at this time. Emphasized to the patient and present family members (daughter and son-in-law) importance of the biopsy in determining diagnosis and type of treatment options available for the patient. Patient states that he is not sleeping well in the hospital. Noted the patient with Atrial fibrillation last night. Taken for lung biopsy this week. The patient with hemoptysis. Seen by radiation oncology Dr. Iqbal for palliative radiation evaluation. Receiving radiation. Noted transaminitis. Hemoptysis improving. Pain in chest/lungs subsiding. Appetite still weak. For Port-A-Cath on Sunday and to start chemotherapy for preliminary result of small cell carcinoma. Objective - Vital Signs/Intake and Output Vital Signs (last 24 hours): Temp Pulse Resp BP Pulse Ox 96.4 F L 65 19 125/63 100 10/07/17 06:00 10/07/17 06:00 10/07/17 06:00 10/07/17 06:00 10/07/17 06:00 Intake and Output: 10/07/17 10/07/17 06:59 18:59 Intake Total 100 Balance 100 - Medications Medications: Current Medications Benzonatate (Tessalon Perles) 100 mg PO Q8 [facility] Last Admin: 10/07/17 13:29 Dose: 100 mg Guaifenesin/Codeine Phosphate (Robitussin W/Codeine) 5 ml PO Q4H PRN PRN Reason: Cough and congestion Last Admin: 10/07/17 13:28 Dose: 5 ml Levalbuterol HCl (Xopenex) 0.63 mg IH Q2 PRN PRN Reason: Shortness of Breath Last Admin: 10/06/17 05:30 Dose: 0.63 mg Levalbuterol HCl (Xopenex) 0.63 mg IH [id number] [facility] Last Admin: 10/07/17 13:31 Dose: 0.63 mg Megestrol Acetate (Megace) 200 mg PO DAILY [facility] Last Admin: 10/07/17 09:26 Dose: 200 mg Methylprednisolone (Solu-Medrol) 20 mg IVP DAILY [facility] Oxycodone HCl (Oxycodone Immediate Release Tab) 5 mg PO Q6H PRN PRN Reason: Pain, moderate (4-7) Last Admin: 10/07/17 05:59 Dose: 5 mg Pantoprazole Sodium (Protonix Ec Tab) 40 mg PO 0600 [facility] Last Admin: 10/07/17 06:00 Dose: 40 mg Sotalol HCl (Betapace) 80 mg PO BID [facility] Last Admin: 10/07/17 09:26 Dose: 80 mg - Labs Labs: 10/06/17 06:30 10/07/17 06:00 PT 14.2 SECONDS (9.4-12.5) H 10/07/17 06:00 INR 1.23 10/07/17 06:00 APTT 23.8 Seconds (25.1-36.5) L 10/07/17 06:00 - Constitutional Appears: Non-toxic, No Acute Distress, Chronically Ill - Head Exam Head Exam: ATRAUMATIC, NORMOCEPHALIC - Eye Exam Eye Exam: EOMI, PERRL Pupil Exam: NORMAL ACCOMODATION, PERRL - ENT Exam ENT Exam: Mucous Membranes Moist, Normal External Ear Exam, TM's Normal Bilaterally - Neck Exam Neck Exam: Full ROM, Normal Inspection - Respiratory Exam Respiratory Exam: Clear to Ausculation Bilateral, NORMAL BREATHING PATTERN. absent: Rales, Rhonchi, Wheezes - Cardiovascular Exam Cardiovascular Exam: REGULAR RHYTHM, RRR, +S1, +S2 - GI/Abdominal Exam GI & Abdominal Exam: Soft, Normal Bowel Sounds. absent: Distended, Tenderness - Extremities Exam Extremities Exam: Full ROM, Normal Inspection - Neurological Exam Neurological Exam: Alert, Awake, CN II-XII Intact, Oriented x3 - Psychiatric Exam Psychiatric exam: Normal Affect, Normal Mood - Skin Skin Exam: Intact, Normal Color Assessment and Plan - Assessment and Plan (Free Text) Assessment: 76 yo [place] male with large amount of weight loss (19 lbs) and multiple CT lung findings. The patient started on Ceftriaxone and Azithromycin. Must rule out malignancy. Check for Tuberculosis. Check PPD and Quantiferon. Consider surgery or IR evaluation for biopsy of suspicious areas. Supportive care. May need Heme/Onc evaluation as well. Check ESR and C-Reactive Protein. The most likely diagnosis given the current symptoms is malignancy. Given overall picture, Tuberculosis is a much less likely diagnosis. Malignancy is extremely likely. Overall technician terminal and repeater prognosis is very poor. Discussed with family and the patient importance of a biopsy in determining diagnosis and available care/ treatment options. Rocephin on hold due to sudden transaminitis. Taken for lung/liver biopsy. Pathology pending. Patient has chest tube in place for pneumothorax from procedure. Hemoptysis improving. For Port-A-Cath on Sunday and possible chemotherapy. Preliminary pathology showing small cell carcinoma. Thank you for allowing me to participate in the care of the patient, we will follow with you.
--- NOTE | 2017-10-07 19:13 | PN ---
Copied To: Lenka García MD Attending MD: Lenka García MD DATE: 10/07/2017 PULMONARY PROGRESS NOTE REFERRING PHYSICIAN: Dr. Larkin. SUBJECTIVE: He is sitting up side of the bed, having lunch. Feels better. Decreased cough, decreased short of breath. No hemoptysis. No nausea, no vomiting, no diarrhea. No leg pain or leg swelling. OBJECTIVE: GENERAL: In no acute distress. VITAL SIGNS: Temperature is 98, heart rate 65, respiratory rate is 18, blood pressure 125/63, and pulse ox is 100% on nasal cannula. HEENT: Moist mucous membrane. No ulcer or thrush noted. NECK: Supple. No JVD. LUNGS: Few scattered rhonchi. HEART: S1 and S2. ABDOMEN: Soft, nontender. No organomegaly. EXTREMITIES: No edema. NEUROLOGIC: Awake, alert, and follows simple command. MEDICATIONS: He is on Betapace 80 mg twice a day, Megace 200 mg daily, OxyContin immediate release 5 mg every 6 hours p.r.n., Protonix 40 mg daily, Robitussin with codeine 5 mL every 4 hours p.r.n., Rocephin 1 g daily, K-Phos is being given, Solu-Medrol 20 mg every 12 hours, Tessalon Perles 100 mg every 8 hours, Xopenex 0.63 every 12 hours p.r.n. and every 6 hours [id number]. LABORATORY DATA: Shows INR 1.23. PTT is 24. Sodium 135, potassium 4.1, chloride 100, bicarbonate is 29. BUN 23, creatinine 0.8. Glucose 154. Calcium 8.6, phosphorus 2.3, magnesium 2.4. AST 179, ALT 451. Albumin is 2.7. Microbiology: Blood culture and sputum culture have been negative. There is no growth. IMPRESSION AND PLAN: Unresectable lung cancer, status post pneumothorax, hemothorax, paroxysmal atrial fibrillation, chronic lung disease. Pulmonary point of view, he is doing much better. We will decrease Solu-Medrol to 20 mg daily. Continue inhaled bronchodilator. The patient scheduled for Port-A-Cath tomorrow. May start DVT prophylaxis after Port-A-Cath for now, probably just need prophylaxis instead of therapeutic if okay with Cardiology. Thank you and we will follow with you. Lenka García MD [facility] # [id number]
--- NOTE | 2017-10-07 20:15 | PN ---
Copied To: Curt Bernard MD Attending MD: Curt Bernard MD DATE: 10/07/2017 This is [facility] visit on the medical floor. For Dr. Lomeli. SUBJECTIVE: The patient is a 76-year-old male, seen lying awake in bed, known to suffer stage IV metastatic lung cancer with hilar mass with suggestion of metastatic disease in the liver and bone, with episode of atrial fibrillation. He is status post biopsy. The patient is now being followed for his elevated liver function test. The patient reports his blood-tinged sputum has now improved. The patient is otherwise in no acute distress this visit. His pain is being relieved by Tramadol with good effect. PHYSICAL EXAMINATION: VITAL SIGNS: Temperature 96.4, pulse 65, respirations 19, blood pressure 125/63, and pulse ox of 100%. HEENT: Unremarkable. Tongue is moist and midline. NECK: Supple. HEART: Regular rate. Occasional ectopic beat. LUNGS: Scattered rhonchi. ABDOMEN: Soft, nontender. EXTREMITIES: No edema. SKIN: Warm and dry. NEUROLOGIC: Awake and alert. LABORATORY DATA: The patient's labs were done yesterday and ordered for this morning, but did not appear on the chart. We will order that again for the morning. Yesterday's white count was 12.3, hemoglobin 13.3, hematocrit 39.4, and platelet count of 390,000. His chem metabolic panel showed a potassium of 5.1. BUN of 23 with a creatinine of 0.8. His AST is 197 down from 285 yesterday with an ALT of 451 down from 493 yesterday. His INR was noted to be 1.23. He was ordered for daily INR. This will be discontinued as his INR has remained stable upon multiple testing of this value. The order will be discontinued. ASSESSMENT: Unresectable lung cancer, biopsy pending, pathology pending; history of pneumothorax, hemoptysis, chronic obstructive pulmonary disease, atrial fibrillation, abnormal liver function tests, right lower lobe pneumonia, mediastinal hilar adenopathy, lytic lesion of T7, probable stage IV metastatic lung cancer with bony metastasis, electrolyte imbalance improved. PLAN: Continue the present medical regimen. Dr. Bynum's input appreciated for his abnormal LFTs with the patient refusing MRI due to claustrophobic conditions. We will continue his present regimen including radiation as indicated with anticoagulation to restart on hold due to hemoptysis. This is a complex patient with a comprehensive medically necessary and appropriate visit carried out in excess of 20 minutes [id number] time with the patient's medicines reviewed with discussions held with appropriate personnel involved in his care. It should be noted that the patient's CEA value was 144 with his most recent INR of 1.23. We will recheck his labs again in the morning with CBC. Curt Bernard MD
[2017-10-08] MEDS: oxyCODONE 5 mg Immediate Release Tab PO PRN ×2 (01:42→22:02)
[2017-10-08] MEDS: guaiFENesin-Codeine 100-10mg/5ml Syrup (5 ml) UD PO PRN ×2 (01:42→22:03)
[2017-10-08] MEDS: Levalbuterol 0.63 MG/3 ML Inhal Soln UD IH SCH ×4 (03:45→20:20)
[2017-10-08 06:43] LABS: BASO # 0.06 K/mm3 (0.0-2.0); BASO % 0.4 % (0.0-3.0); EOS # 0.1 (0.0-0.7); EOS % 0.6 % (1.5-5.0); GRAN # 10.39 (1.4-6.5); GRAN % 76.2 % (50.0-68.0); LYMPH # 0.9 (1.2-3.4); LYMPH % 6.7 % (22.0-35.0); MEAN CELL VOLUME 86.1 fl (80.0-105.0); MEAN CORPUSCULAR HEMOGLOBIN 28.8 pg (25.0-35.0); MEAN CORPUSCULAR HGB CONC 33.4 g/dl (31.0-37.0); MEAN PLATELET VOLUME 9.9 fl (7.0-11.0); MONO # 2.2 (0.1-0.6); MONO % 16.1 % (1.0-6.0); RBC 4.52 10^6/uL (3.5-6.1); RED CELL DISTRIBUTION WIDTH 14.2 % (11.5-14.5); WHITE BLOOD COUNT 13.6 10^3/ul (4.5-11.0)
[2017-10-08] MEDS: Pantoprazole 40 mg EC Tab PO SCH (07:00)
--- NOTE | 2017-10-08 07:05 | CP.PCM.PN ---
<Kai Matos - Last Filed: 10/08/17 14:18> Subjective - Date & Time of Evaluation Date of Evaluation: 10/08/17 Time of Evaluation: 07:04 - Subjective Subjective: Kai Matos DO PGY1 Internal Medicine Senior Embedded Software Engineer -Hospital Progress Note Seen and examined no issues reported overnight by nursing overnight; Will be going for port placement today; Questions regarding procedure answered, and patient agrees w/ plan. Patient reports that his SOB is improving, and is having very minimal hemoptysis. Does report come constipation this AM. NO other complaints voiced at this time. Objective - Vital Signs/Intake and Output Vital Signs (last 24 hours): Temp Pulse Resp BP Pulse Ox 98.0 F 60 18 101/59 L 96 10/07/17 17:16 10/07/17 17:16 10/07/17 18:47 10/07/17 17:16 10/07/17 17:16 Intake and Output: 10/08/17 10/08/17 06:59 18:59 Intake Total 120 Output Total 400 Balance -280 - Medications Medications: Current Medications Benzonatate (Tessalon Perles) 100 mg PO Q8 [facility] Last Admin: 10/08/17 07:00 Dose: Not Given Guaifenesin/Codeine Phosphate (Robitussin W/Codeine) 5 ml PO Q4H PRN PRN Reason: Cough and congestion Last Admin: 10/08/17 01:42 Dose: 5 ml Levalbuterol HCl (Xopenex) 0.63 mg IH Q2 PRN PRN Reason: Shortness of Breath Last Admin: 10/06/17 05:30 Dose: 0.63 mg Levalbuterol HCl (Xopenex) 0.63 mg IH [id number] [facility] Last Admin: 10/08/17 03:45 Dose: 0.63 mg Megestrol Acetate (Megace) 200 mg PO DAILY [facility] Last Admin: 10/07/17 09:26 Dose: 200 mg Methylprednisolone (Solu-Medrol) 20 mg IVP DAILY [facility] Oxycodone HCl (Oxycodone Immediate Release Tab) 5 mg PO Q6H PRN PRN Reason: Pain, moderate (4-7) Last Admin: 10/08/17 01:42 Dose: 5 mg Pantoprazole Sodium (Protonix Ec Tab) 40 mg PO 0600 [facility] Last Admin: 10/08/17 07:00 Dose: Not Given Sotalol HCl (Betapace) 80 mg PO BID [facility] Last Admin: 10/07/17 17:21 Dose: 80 mg - Labs Labs: 10/06/17 06:30 10/07/17 06:00 PT 14.2 SECONDS (9.4-12.5) H 10/07/17 06:00 INR 1.23 10/07/17 06:00 APTT 23.8 Seconds (25.1-36.5) L 10/07/17 06:00 Physical Exam - Constitutional Appears: Well, Cachectic - Head Exam Head Exam: ATRAUMATIC, NORMAL INSPECTION, NORMOCEPHALIC - Eye Exam Eye Exam: EOMI, PERRL. absent: Scleral icterus - ENT Exam ENT Exam: Mucous Membranes Moist - Respiratory Exam Respiratory Exam: Rhonchi, Wheezes. absent: Respiratory Distress Additional comments: No respiratory distress or discomfort; breathing well. R sided wheezes and ronchorous sounds > L. L sided breath sounds wnl. - Cardiovascular Exam Cardiovascular Exam: RRR, +S1, +S2 - GI/Abdominal Exam GI & Abdominal Exam: Soft. 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 Patient was biopsied on 10/02 and is currently receiving palliative radiation at this time. Hospital course was complicated by new onset Afib which is rate controlled w/ sotalol, and anticoagulated w/ elqiuis. Port placement today (10/08), with plans to start chemo-radiation 10/09. Plan: Pulmonary Malignancy s/p CT guided biopsy CT chest 09/25: extensive mediastinal and hilar lymphadenopathy suspicious for underlying pulmonary malignancy. Lytic lesion at T7 consistent with metastatic disease. Scattered sclerotic lesions. Extensive R lower lobe pneumonia. Ct abd/ pelvis 09/25: scattered osteoblastic lesions in multiple vertebral bodies, posterior elements and ribs. Age-indeterminate fracture of L4 superior end-plate , may be acute and/or pathologic. Low density lesion in anterolateral liver, metastasis suspected. Ct head 09/27: no evidence of metastatic disease, no acute intracranial findings Bone scan 09/26: findings consistent with bony metastatic disease Patient underwent CT guided biopsy of lung mass on 10/01 complicated by pneumothorax now resolved; chest tube was placed due to pneumothorax and has now been removed Patient hemoptysis improving Unofficial pathology of hilar mass - Small Cell Ca; Official report pending Consults: ID Consulted (Dr. Coker), recs appreciated Pulm consulted (Dr. García), recs appreciated - c/w Xopenex Q6H , Solumedrol 20mg Q12H Heme/onc consulted (Dr. Lomeli), recs appreciated -c/w megace, pallative radiation as per IR, port placement 10/08, x1 treatment ChemoRad tentative on 10/09 , Discussed with pathologist Dr Cage regarding patient's biopsy, like small cell lung carcinoma, will await for official pathology reports: Radiation onc consulted (Dr. Iqbal), recs appreciated - Patient receiving pallative radiation Transaminitis, Continues to be Down Trending New onset elevated transaminases in hepatocellular pattern Hepatotoxic meds discontinued Ceftriaxone discontinued 10/05/[address] Bynum, recs appreciated * Differential include decompensation in light of liver metastases, DILI with recent initiation of Ceftriaxone or possible compression of hepatic vasculature as a result of metastatic disease * Patient refusing MRI at this time given claustrophobia and previous negative experience Post-Obstructive Pneumonia CXR on admission 09/25: extensive alveolar infiltrate in R lower lobe consistent with pneumonia Pt. afebrile; w/ some c/o of cough WBC uptrending most likely 2/2 Steroids C/w Solumderol 20 QD C/w Xopenex as per pulm reccs C/w Robitussin+Codeine PRN and Tessalon perles PRN C/w bronchodialator Xopenex as per pulm reccs ID consulted (Dr. Coker), recs appreciated Pulm consulted (Dr. García), recs appreciated New-onset atrial fibrillation with rapid ventricular response Rapid response called on 09/26/17; pt had additional episode overnight that converted back to normal sinus rhythm spontaneously Pt. off tele Continue Sotalol as per cardiology Start anticoagulation w/ eliquis 5mg BID Cardio consulted (Dr. Chirinos), recs appreciated Electrolyte abnormalities HyperK/ Hypophos / Hyper mag Continue following levels; treat/replete as necessary Treat hypophos w/ sodium phos as to not upset other electrolyte balances Nephrology (Dr Barrera) has signed off DVT/GI ppx: SCD /Protonix Disposition plan: Continue in patient management of cancer, Port placement on 10/08; first dose chemo on 10/09. Pt. determined pt to home w/ services; Pt. with much better clinical picture today; will reevaluate pt from PT stand point to see if patient is a candidate for MARVIN. Patient seen, examined, and case discussed w/ attending physician Dr. Graciela Matos DO PGY1 Internal Medicine Senior Embedded Software Engineer - Pager [phone] <Lenka Owens - Last Filed: 10/11/17 16:01> Objective - Vital Signs/Intake and Output Vital Signs (last 24 hours): Temp Pulse Resp BP Pulse Ox 97.5 F L 65 20 116/62 97 10/11/17 06:00 10/11/17 09:49 10/11/17 06:00 10/11/17 09:49 10/11/17 06:00 Intake and Output: 10/11/17 10/11/17 06:59 18:59 Intake Total 1800 Output Total 1150 Balance 650 - Medications Medications: Current Medications Apixaban (Eliquis) 5 mg PO BID [facility] PRN Reason: Protocol Last Admin: 10/11/17 09:49 Dose: 5 mg Benzonatate (Tessalon Perles) 100 mg PO Q8 [facility] Last Admin: 10/11/17 13:26 Dose: 100 mg Diphenhydramine HCl (Benadryl) 25 mg PO HS PRN PRN Reason: Insomnia Last Admin: 10/11/17 01:44 Dose: 25 mg Guaifenesin/Codeine Phosphate (Robitussin W/Codeine) 5 ml PO Q4H [facility] Last Admin: 10/11/17 13:25 Dose: 5 ml Sodium Chloride (Sodium Chloride 0.9%) 1,000 mls @ 100 mls/hr IV .Q10H [facility] Last Admin: 10/11/17 09:53 Dose: 100 mls/hr Etoposide 150 mg/ Sodium (Chloride) 507.5 mls @ 253.75 mls/hr IV ONCE ONE Stop: 10/11/17 16:59 Last Admin: 10/11/17 14:48 Dose: 253.75 mls/hr Levalbuterol HCl (Xopenex) 0.63 mg IH [id number] [facility] Last Admin: 10/11/17 13:39 Dose: 0.63 mg Megestrol Acetate (Megace) 200 mg PO DAILY [facility] Last Admin: 10/11/17 09:50 Dose: 200 mg Oxycodone HCl (Oxycodone Immediate Release Tab) 5 mg PO Q6H PRN PRN Reason: Pain, moderate (4-7) Last Admin: 10/09/17 21:34 Dose: 5 mg Pantoprazole Sodium (Protonix Ec Tab) 40 mg PO 0600 [facility] Last Admin: 10/11/17 05:13 Dose: 40 mg Polyethylene Glycol (Miralax) 17 gm PO BID [facility] Last Admin: 10/11/17 09:50 Dose: 17 gm Sotalol HCl (Betapace) 80 mg PO BID [facility] Last Admin: 10/11/17 09:49 Dose: 80 mg - Labs Labs: 10/11/17 05:40 10/11/17 05:40 PT 14.2 SECONDS (9.4-12.5) H 10/07/17 06:00 INR 1.23 10/07/17 06:00 APTT 23.8 Seconds (25.1-36.5) L 10/07/17 06:00 Attending/Attestation - Attestation I have personally seen and examined this patient.: Yes I have fully participated in the care of the patient.: Yes I have reviewed all pertinent clinical information, including history, physical exam and plan: Yes Notes (Text): 10/11/17 15:57 Medical record note made by the resident after discussion with my direction and input after the patient was personally seen and examined by me. I have reviewed the chart and agree that the record accurately reflects by personal performance of the history, physical exam, data review, and medical decision-making, in the course for the patient. I have also personally directed the plan of care. 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 Ct Chest done shows RLL PNA, likely post obstructive, diffuse moderate mediastinal MYA, and numerous extra-pulmonary lesions suggestive of metastatic process.CT abd/pelvis revealed lesion in liver and osteolytic lesion in thoracic and lumbar spine possible metastasis. Pt also had rapid response on 09/26/17 for new-onset atrial fibrillation with rapid ventricular response 7Patient is SP lung biopsy. Post biopsy had pneumothorax but now chest tube is removed. Pathology showed small cell ca. Started on radiation therapy. . Plan is for chemoport today followed by chemo. Transaminitis (?secondary to ceftriaxone -held).LFT are coming down. GI is following.
[2017-10-08 07:06] LABS: ALB/GLOB RATIO 0.9 (1.1-1.8); ALBUMIN 2.8 g/dL (3.0-4.8); ALT/SGPT 336 U/L (7-56); AST/SGOT 85 U/L (17-59); BLOOD UREA NITROGEN 23 mg/dL (7-21); CALCIUM 8.2 mg/dL (8.4-10.5); GFR AFRICAN-AMERICAN > 60; GFR NON-AFRICAN AMERICAN > 60
--- NOTE | 2017-10-08 11:55 | CP.PCM.PN ---
Subjective - Date & Time of Evaluation Date of Evaluation: 10/08/17 Time of Evaluation: 11:52 - Subjective Subjective: Sobeida Dukes, PGY2, Heme-Onc Progress Note for Dr Lomeli: This is a 76 year old male with PMH gastric ulcer, gastritis, admitted for pneumonia, found to have small cell lung carcinoma with extensive mediastinal and hilar adenopathy and lytic lesions at T7, other vertebral bodies and liver mets, s/p 5 radiation treatments and awaiting first chemotherapy session ( likely tomorrow). Patient seen and examined at bedside. No acute events overnight. Patient states that his hemoptysis resolved on Sunday, he has not had not hemoptysis since then. Patient states that he has not had a BM for past 3 days. Patient's nurse asked for percocet renewal, for which the order was given. Patient scheduled for chest port placement this afternoon at 2 PM. Reports mild cough, clear sputum. States that his appetite has been well the entire weekend, NPO currently for the procedure scheduled today. He received his 5th radiation treatment with Dr Iqbal this AM. Denies fevers, chills, nausea, vomiting, abdominal pain, leg swelling, urinary complaints, easy bruising. Objective - Vital Signs/Intake and Output Vital Signs (last 24 hours): Temp Pulse Resp BP Pulse Ox 99.2 F 60 20 115/68 98 10/08/17 08:25 10/08/17 08:25 10/08/17 08:25 10/08/17 08:25 10/08/17 08:25 Intake and Output: 10/08/17 10/08/17 06:59 18:59 Intake Total 120 Output Total 400 Balance -280 - Medications Medications: Current Medications Benzonatate (Tessalon Perles) 100 mg PO Q8 [facility] Last Admin: 10/08/17 07:00 Dose: Not Given Guaifenesin/Codeine Phosphate (Robitussin W/Codeine) 5 ml PO Q4H PRN PRN Reason: Cough and congestion Last Admin: 10/08/17 01:42 Dose: 5 ml Sodium Chloride (Sodium Chloride 0.9%) 1,000 mls @ 100 mls/hr IV .Q10H [facility] Levalbuterol HCl (Xopenex) 0.63 mg IH Q2 PRN PRN Reason: Shortness of Breath Last Admin: 10/06/17 05:30 Dose: 0.63 mg Levalbuterol HCl (Xopenex) 0.63 mg IH [id number] [facility] Last Admin: 10/08/17 08:53 Dose: 0.63 mg Megestrol Acetate (Megace) 200 mg PO DAILY [facility] Last Admin: 10/07/17 09:26 Dose: 200 mg Methylprednisolone (Solu-Medrol) 20 mg IVP DAILY [facility] Oxycodone HCl (Oxycodone Immediate Release Tab) 5 mg PO Q6H PRN PRN Reason: Pain, moderate (4-7) Last Admin: 10/08/17 01:42 Dose: 5 mg Pantoprazole Sodium (Protonix Ec Tab) 40 mg PO 0600 [facility] Last Admin: 10/08/17 07:00 Dose: Not Given Sotalol HCl (Betapace) 80 mg PO BID [facility] Last Admin: 10/07/17 17:21 Dose: 80 mg - Labs Labs: 10/08/17 06:10 10/08/17 06:10 PT 14.2 SECONDS (9.4-12.5) H 10/07/17 06:00 INR 1.23 10/07/17 06:00 APTT 23.8 Seconds (25.1-36.5) L 10/07/17 06:00 - Additional Findings Additional findings: - Constitutional Appears: Older Than Stated Age, Chronically Ill - Head Exam Head Exam: ATRAUMATIC, NORMOCEPHALIC - Eye Exam Eye Exam: EOMI, PERRL. absent: Conjunctival injection, Nystagmus, Scleral icterus Pupil Exam: NORMAL ACCOMODATION, PERRL. absent: Miosis, Mydriatic, Unequal - ENT Exam ENT Exam: Mucous Membranes Moist - Neck Exam Neck Exam: Full ROM - Respiratory Exam Respiratory Exam: Decreased Breath Sounds - Cardiovascular Exam Cardiovascular Exam: RRR, +S1, +S2. absent: Murmur - GI/Abdominal Exam GI & Abdominal Exam: Soft, Normal Bowel Sounds. absent: Guarding, Rigid, Tenderness, Mass, Organomegaly, Rebound - Extremities Exam Extremities Exam: Normal Inspection. absent: Calf Tenderness, Pedal Edema - Back Exam Back Exam: NORMAL INSPECTION - Neurological Exam Neurological Exam: Alert, Awake, Oriented x3 - Psychiatric Exam Psychiatric exam: Normal Affect, Normal Mood - Skin Skin Exam: Dry, Normal Color, Warm Assessment and Plan - Assessment and Plan (Free Text) Assessment: 76 year old male with PMH gastric ulcer, gastritis, admitted for RLL pneumonia, found to have small cell lung cancer with extensive mediastinal and hilar adenopathy and lytic lesions at T7, other vertebral bodies and liver mets, s/p [address]qbal and likely will undergo chemotherapy tomorrow : Small cell lung cancer with metastasis to bone, liver, s/p radiation, New onset afib Constipation RLL pneumonia Transaminitis 2/2 likely medication (rocephin) induced Chemotherapy initiation - started on miralax bid. will give dulcolax rectal x1 - c/w Megace - pathology report of hilar mass 10/02 showed small cell lung carcinoma - Can resume anticoagulation, prefer NOAC like Eliquis for patient for paroxysmal afib, as deemed by primary team and cardiology - c/w sotalol for afib - Scheduled for chest port insertion today with Dr Toledo - Chemotherapy likely tomorrow - 24 hour urine CrCl ordered. f.u results - Abd US showed increased echogenicity of liver parenchyma, 2 separate hypoechoic lesions. 2x1.3 cm in diameter. fatty infiltration - NS @100 - monitor Case discussed with Dr Lomeli.
--- NOTE | 2017-10-08 12:28 | CP.PCM.PN ---
<Marino Lloyd - Last Filed: 10/08/17 12:28> Subjective - Date & Time of Evaluation Date of Evaluation: 10/08/17 Time of Evaluation: 09:15 - Subjective Subjective: Patient seen and examined at bedside in no acute distress or complaints overnight. Denies abdominal pain, nausea, vomiting, diarrhea. States does not want to undergo MRI because of claustrophobia. Objective - Vital Signs/Intake and Output Vital Signs (last 24 hours): Temp Pulse Resp BP Pulse Ox 99.2 F 60 20 115/68 98 10/08/17 08:25 10/08/17 08:25 10/08/17 08:25 10/08/17 08:25 10/08/17 08:25 Intake and Output: 10/08/17 10/08/17 06:59 18:59 Intake Total 120 Output Total 400 Balance -280 - Medications Medications: Current Medications Benzonatate (Tessalon Perles) 100 mg PO Q8 [facility] Last Admin: 10/08/17 07:00 Dose: Not Given Guaifenesin/Codeine Phosphate (Robitussin W/Codeine) 5 ml PO Q4H PRN PRN Reason: Cough and congestion Last Admin: 10/08/17 01:42 Dose: 5 ml Sodium Chloride (Sodium Chloride 0.9%) 1,000 mls @ 100 mls/hr IV .Q10H [facility] Levalbuterol HCl (Xopenex) 0.63 mg IH Q2 PRN PRN Reason: Shortness of Breath Last Admin: 10/06/17 05:30 Dose: 0.63 mg Levalbuterol HCl (Xopenex) 0.63 mg IH [id number] [facility] Last Admin: 10/08/17 08:53 Dose: 0.63 mg Megestrol Acetate (Megace) 200 mg PO DAILY [facility] Last Admin: 10/07/17 09:26 Dose: 200 mg Methylprednisolone (Solu-Medrol) 20 mg IVP DAILY [facility] Oxycodone HCl (Oxycodone Immediate Release Tab) 5 mg PO Q6H PRN PRN Reason: Pain, moderate (4-7) Last Admin: 10/08/17 01:42 Dose: 5 mg Pantoprazole Sodium (Protonix Ec Tab) 40 mg PO 0600 [facility] Last Admin: 10/08/17 07:00 Dose: Not Given Polyethylene Glycol (Miralax) 17 gm PO BID [facility] Sotalol HCl (Betapace) 80 mg PO BID [facility] Last Admin: 10/07/17 17:21 Dose: 80 mg - Labs Labs: 10/08/17 06:10 10/08/17 06:10 PT 14.2 SECONDS (9.4-12.5) H 10/07/17 06:00 INR 1.23 10/07/17 06:00 APTT 23.8 Seconds (25.1-36.5) L 10/07/17 06:00 - Constitutional Appears: Non-toxic - Head Exam Head Exam: ATRAUMATIC, NORMAL INSPECTION, NORMOCEPHALIC - Eye Exam Additional comments: cataracts b/l - ENT Exam ENT Exam: Mucous Membranes Moist - Neck Exam Neck Exam: Full ROM - Respiratory Exam Respiratory Exam: NORMAL BREATHING PATTERN - Cardiovascular Exam Cardiovascular Exam: REGULAR RHYTHM, +S1, +S2 - GI/Abdominal Exam GI & Abdominal Exam: Soft, Normal Bowel Sounds - Extremities Exam Extremities Exam: Normal Inspection - Back Exam Back Exam: NORMAL INSPECTION - Neurological Exam Neurological Exam: Alert, Awake, Oriented x3 - Psychiatric Exam Psychiatric exam: Normal Affect, Normal Mood - Skin Skin Exam: Intact, Normal Color, Warm Assessment and Plan - Assessment and Plan (Free Text) Assessment: Patient is a 76yo male with PMHx significant for recently diagnosed Non-small cell lung cancer with metastases to lung/lumbar spine -Abnormal LFTs, hepatocellular pattern -Non-small cell lung cancer with metastasis Plan: -LFTs continue to downtrend -Recommend D/C of ceftriaxone -Differential include decompensation in light of liver metastases, DILI with recent initiation of Ceftriaxone or possible compression of hepatic vasculature as a result of metastatic disease -Patient refusing MRI -No other interventions/work up planned by our service at this time <Ellis Bynum V - Last Filed: 10/08/17 18:59> Objective - Vital Signs/Intake and Output Vital Signs (last 24 hours): Temp Pulse Resp BP Pulse Ox 98 F 60 17 121/60 99 10/08/17 16:07 10/08/17 17:06 10/08/17 16:07 10/08/17 17:06 10/08/17 16:07 Intake and Output: 10/08/17 10/08/17 06:59 18:59 Intake Total 120 740 Output Total 400 300 Balance -280 440 - Medications Medications: Current Medications Apixaban (Eliquis) 5 mg PO BID [facility] PRN Reason: Protocol Last Admin: 10/08/17 17:10 Dose: 5 mg Benzonatate (Tessalon Perles) 100 mg PO Q8 [facility] Last Admin: 10/08/17 17:11 Dose: Not Given Guaifenesin/Codeine Phosphate (Robitussin W/Codeine) 5 ml PO Q4H PRN PRN Reason: Cough and congestion Last Admin: 10/08/17 01:42 Dose: 5 ml Sodium Chloride (Sodium Chloride 0.9%) 1,000 mls @ 100 mls/hr IV .Q10H [facility] Last Admin: 10/08/17 12:36 Dose: 100 mls/hr Sodium Chloride (Sodium Chloride 0.45%) 1,000 mls @ 80 mls/hr IV .[id number] [facility] Stop: 10/08/17 22:00 Levalbuterol HCl (Xopenex) 0.63 mg IH Q2 PRN PRN Reason: Shortness of Breath Last Admin: 10/06/17 05:30 Dose: 0.63 mg Levalbuterol HCl (Xopenex) 0.63 mg IH [id number] [facility] Last Admin: 10/08/17 13:13 Dose: 0.63 mg Megestrol Acetate (Megace) 200 mg PO DAILY [facility] Last Admin: 10/08/17 12:37 Dose: 200 mg Methylprednisolone (Solu-Medrol) 20 mg IVP DAILY [facility] Last Admin: 10/08/17 12:36 Dose: 20 mg Oxycodone HCl (Oxycodone Immediate Release Tab) 5 mg PO Q6H PRN PRN Reason: Pain, moderate (4-7) Last Admin: 10/08/17 01:42 Dose: 5 mg Pantoprazole Sodium (Protonix Ec Tab) 40 mg PO 0600 [facility] Last Admin: 10/08/17 07:00 Dose: Not Given Polyethylene Glycol (Miralax) 17 gm PO BID [facility] Last Admin: 10/08/17 17:10 Dose: 17 gm Sotalol HCl (Betapace) 80 mg PO BID [facility] Last Admin: 10/08/17 17:06 Dose: 80 mg - Labs Labs: 10/08/17 06:10 10/08/17 06:10 PT 14.2 SECONDS (9.4-12.5) H 10/07/17 06:00 INR 1.23 10/07/17 06:00 APTT 23.8 Seconds (25.1-36.5) L 10/07/17 06:00 Attending/Attestation - Attestation I have personally seen and examined this patient.: Yes I have fully participated in the care of the patient.: Yes I have reviewed all pertinent clinical information, including history, physical exam and plan: Yes Notes (Text): This is an addendum to GI followup report dictated by the Provider Network Mgr. The patient was seen and evaluated earlier. Medical records, lab studies, imagings were reviewed. Last 24 hours events reviewed. Agreed with the above treatment plan as outlined in Provider Network Mgr 's notes with the addition of the following LFTs shows downward trend Discussed with the patient's family who were at bedside We discussed with the medical team regarding Gabino 10/08/17 18:58
[2017-10-08] MEDS: Sodium Chloride 0.9% 1,000 ML IV SCH (12:36)
[2017-10-08] MEDS: MethylPREDNISolone 40 mg Vial IVP SCH (12:36)
[2017-10-08] MEDS: Megestrol Acetate 40 mg/ml Cup PO SCH (12:37)
[2017-10-08] MEDS ORDERED: Lidocaine PF 2% (5 ml) Inj (For Cardiac Arrhy) ONE (13:50)
--- NOTE | 2017-10-08 13:58 | PN ---
Copied To: Lenka García MD Attending MD: Lenka García MD DATE: 10/08/2017 PULMONARY PROGRESS NOTE REFERRING PHYSICIAN: Dr. Larkin. SUBJECTIVE: The patient is lying in the bed, head at 45 degrees, n.p.o. for possible Port-A-Cath placement. Complaining of dry mouth. No headache, no rhinitis, no chest pain. No more hemoptysis or dysuria. No leg pain or leg swelling. OBJECTIVE: GENERAL: In no acute distress. VITAL SIGNS: Temperature is 99, heart rate 60, respiratory rate is 20, blood pressure 115/68, and pulse ox 98% on 3 liters nasal cannula. HEENT: Moist mucous membrane. Crowded airway. Mallampati score is 4. NECK: Supple. No JVD. LUNGS: Have a few scattered rhonchi. HEART: S1 and S2. ABDOMEN: Soft, nontender. No organomegaly. EXTREMITIES: No edema. NEUROLOGIC: Awake and alert. Follows simple command. MEDICATIONS: He is on Betapace 80 mg twice a day, Megace 200 mg daily, MiraLax 17 g daily, oxycodone immediate release 5 mg every 6 hours p.r.n., Protonix 40 mg daily, Robitussin with codeine 5 mL every 4 hours p.r.n., IV fluid, normal saline 100 mL/hour, Solu-Medrol 20 mg daily, Tessalon Perles 100 mg every 8 hours, Xopenex inhaled every 2 hours p.r.n. and every 6 hours [id number]. LABORATORY DATA: Shows hemoglobin 13, hematocrit 38.9, WBC 13, platelet is 357. Sodium 135, potassium 4.7, chloride 102, bicarbonate 28, BUN 23, creatinine 0.7, glucose 110, calcium 8.2, phosphorus is 2.6, magnesium 2.5, AST 85, ALT 336, alkaline phosphatase is 96, albumin is 2.8. IMPRESSION AND PLAN: Unresectable lung cancer, status post biopsy, pneumothorax, which has resolved, status post hemothorax, chronic obstructive lung disease. Pulmonary point of view, he is doing okay. We will continue tapered dose of steroids, inhaled bronchodilator, keep head at 45 degrees. Gastric prophylaxis, deep venous thrombosis prophylaxis. Also has paroxysmal atrial fibrillation. Restart anticoagulation as per Cardiology. I spoke to the patient's son at bedside. All the questions answered. Thank you and we will follow with you. Lenka García MD
--- NOTE | 2017-10-08 14:42 | PN ---
Copied To: Antonia Barrera MD Attending MD: Antonia Barrera MD DATE: 10/08/2017 SUBJECTIVE: The patient is seen lying in bed. He is just coming back from radiation. He denies any abdominal pain, nausea, vomiting or diarrhea. He reports constipation. PHYSICAL EXAMINATION GENERAL: Thinly built elderly male, lying in bed. VITAL SIGNS: Blood pressure 115/68, heart rate 60, respiratory rate 20, temperature 99.2, T-max is 99.2. HEENT: Normocephalic, atraumatic, positive pallor. NECK: Supple, no JVD. LUNGS: Bilateral equal air entry, bilateral equal expansion, no rales. CARDIAC: S1 and S2. Regular rate and rhythm. No murmur, no rub. ABDOMEN: Soft, nondistended, nontender, bowel sounds present. EXTREMITIES: Trace lower extremity edema. INTAKE AND OUTPUT: 540/400. LABORATORY DATA: WBC 13.6, hemoglobin 13, hematocrit 38.9, platelets 357. Sodium 135, potassium 4.7, chloride 102, CO2 of 28, BUN 23, creatinine 0.7, glucose 110, calcium 8.2, phosphorus 2.6, magnesium 2.5, AST 85, ALT 336, albumin 2.8. CURRENT MEDICATIONS: Betapace 80 b.i.d., Megace, Protonix, Robitussin, normal saline at 100?, Solu-Medrol 20 IV daily, Xopenex, sodium phosphate given yesterday. ASSESSMENT: 1. Hyperkalemia, mild, resolved. 2. Stage IV metastatic lung cancer with bone metastasis. 3. Hypophosphatemia, mild, resolved. 4. Elevated LFTs. PLAN: 1. Continue to follow a low potassium diet. 2. Treat constipation. 3. Avoid nephrotoxins. 4. Management of stage IV cancer as per Oncology and radiation team. Antonia Barrera MD
[2017-10-08] MEDS ORDERED: Midazolam 2 MG/2 ML VIAL ONE ×2 (14:49→15:04)
[2017-10-08] MEDS ORDERED: Sodium Chloride 0.45% 1,000 ML IV SCH (15:45)
--- NOTE | 2017-10-08 16:33 | CP.PCM.PN ---
Subjective - Date & Time of Evaluation Date of Evaluation: 10/08/17 Time of Evaluation: 15:45 - Subjective Subjective: Infectious Disease Follow Up: October 08, 2017 76 yo male with presentation of SOB and cough productive of sputum. The patient has had symptoms for the past 3 weeks. He was recently in [place] for his son's wedding. Patient states that "food does not taste the same". He has lost [address] scan showing extensive right lower lobe pneumonia but what is more concerning is the extensive mediastinal and hilar adenopathy with lytic lesion at T7. The patient has been started on IV Rocephin and Azithromycin for antibiotic care. No WBC. Procalcitonin of 8.8 at this time. New onset Atrial Fibrillation two nights ago... transferred to telemetry. The family and the patient have been refusing biopsy at this time. Emphasized to the patient and present family members (daughter and son-in-law) importance of the biopsy in determining diagnosis and type of treatment options available for the patient. Patient states that he is not sleeping well in the hospital. Noted the patient with Atrial fibrillation last night. Taken for lung biopsy this week. The patient with hemoptysis. Seen by radiation oncology Dr. Iqbal for palliative radiation evaluation. Receiving radiation. Noted transaminitis. Hemoptysis improving. Pain in chest/lungs subsiding. Appetite still weak. For Port-A-Cath on Sunday and to start chemotherapy for preliminary result of small cell carcinoma. Objective - Vital Signs/Intake and Output Vital Signs (last 24 hours): Temp Pulse Resp BP Pulse Ox 98 F 58 L 17 113/65 99 10/08/17 16:07 10/08/17 16:07 10/08/17 16:07 10/08/17 16:07 10/08/17 16:07 Intake and Output: 10/08/17 10/08/17 06:59 18:59 Intake Total 120 Output Total 400 Balance -280 - Medications Medications: Current Medications Apixaban (Eliquis) 5 mg PO BID [facility] PRN Reason: Protocol Benzonatate (Tessalon Perles) 100 mg PO Q8 [facility] Last Admin: 10/08/17 07:00 Dose: Not Given Guaifenesin/Codeine Phosphate (Robitussin W/Codeine) 5 ml PO Q4H PRN PRN Reason: Cough and congestion Last Admin: 10/08/17 01:42 Dose: 5 ml Sodium Chloride (Sodium Chloride 0.9%) 1,000 mls @ 100 mls/hr IV .Q10H [facility] Last Admin: 10/08/17 12:36 Dose: 100 mls/hr Sodium Chloride (Sodium Chloride 0.45%) 1,000 mls @ 80 mls/hr IV .[id number] [facility] Stop: 10/08/17 22:00 Levalbuterol HCl (Xopenex) 0.63 mg IH Q2 PRN PRN Reason: Shortness of Breath Last Admin: 10/06/17 05:30 Dose: 0.63 mg Levalbuterol HCl (Xopenex) 0.63 mg IH [id number] [facility] Last Admin: 10/08/17 13:13 Dose: 0.63 mg Megestrol Acetate (Megace) 200 mg PO DAILY [facility] Last Admin: 10/08/17 12:37 Dose: 200 mg Methylprednisolone (Solu-Medrol) 20 mg IVP DAILY [facility] Last Admin: 10/08/17 12:36 Dose: 20 mg Oxycodone HCl (Oxycodone Immediate Release Tab) 5 mg PO Q6H PRN PRN Reason: Pain, moderate (4-7) Last Admin: 10/08/17 01:42 Dose: 5 mg Pantoprazole Sodium (Protonix Ec Tab) 40 mg PO 0600 [facility] Last Admin: 10/08/17 07:00 Dose: Not Given Polyethylene Glycol (Miralax) 17 gm PO BID [facility] Sotalol HCl (Betapace) 80 mg PO BID [facility] Last Admin: 10/08/17 12:34 Dose: 80 mg - Labs Labs: 10/08/17 06:10 10/08/17 06:10 PT 14.2 SECONDS (9.4-12.5) H 10/07/17 06:00 INR 1.23 10/07/17 06:00 APTT 23.8 Seconds (25.1-36.5) L 10/07/17 06:00 - Constitutional Appears: Non-toxic, No Acute Distress, Chronically Ill - Head Exam Head Exam: ATRAUMATIC, NORMOCEPHALIC - Eye Exam Eye Exam: EOMI, PERRL Pupil Exam: NORMAL ACCOMODATION, PERRL - ENT Exam ENT Exam: Mucous Membranes Moist, Normal External Ear Exam, TM's Normal Bilaterally - Neck Exam Neck Exam: Full ROM, Normal Inspection - Respiratory Exam Respiratory Exam: Clear to Ausculation Bilateral, NORMAL BREATHING PATTERN. absent: Rales, Rhonchi, Wheezes - Cardiovascular Exam Cardiovascular Exam: REGULAR RHYTHM, RRR, +S1, +S2 - GI/Abdominal Exam GI & Abdominal Exam: Soft, Normal Bowel Sounds. absent: Distended, Tenderness - Extremities Exam Extremities Exam: Full ROM, Normal Inspection - Neurological Exam Neurological Exam: Alert, Awake, CN II-XII Intact, Oriented x3 - Psychiatric Exam Psychiatric exam: Normal Affect, Normal Mood - Skin Skin Exam: Intact, Normal Color Assessment and Plan - Assessment and Plan (Free Text) Assessment: 76 yo male with large amount of weight loss (19 lbs) and multiple CT lung findings. The patient started on Ceftriaxone and Azithromycin. Must rule out malignancy. Check for Tuberculosis. Check PPD and Quantiferon. Consider surgery or IR evaluation for biopsy of suspicious areas. Supportive care. May need Heme/Onc evaluation as well. Check ESR and C-Reactive Protein. The most likely diagnosis given the current symptoms is malignancy. Given overall picture, Tuberculosis is a much less likely diagnosis. Malignancy is extremely likely. 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 Discussed with family and the patient importance of a biopsy in determining diagnosis and available care/ treatment options. Rocephin on hold due to sudden transaminitis. Taken for lung/liver biopsy. Pathology pending. Patient has chest tube in place for pneumothorax from procedure. Hemoptysis improving. For Port-A-Cath on Sunday and possible chemotherapy. Preliminary pathology showing small cell carcinoma. Port-A-Cath placed. Thank you for allowing me to participate in the care of the patient, we will follow with you.
[2017-10-08] MEDS: POLYETHYLENE GLYCOL 3350 17 GM/Dose PACKET PO SCH (17:10)
--- NOTE | 2017-10-08 18:36 | VASCULAR ---
PROCEDURE: Ultrasound and fluoroscopic right internal jugular venous access port. CLINICAL HISTORY: Lung carcinoma.Venous port for chemotherapy. PHYSICIAN(S): Jeremiah Toledo M.D. TECHNIQUE: The relative risks and indications of the procedure were explained to the patient and consent obtained. The patient was placed supine on the arteriogram table and the right neck and chest prepped and draped in the usual sterile fashion. Conscious sedation monitoring was provided throughout the procedure by a nurse. Antibiotics were given prior to the procedure. Under direct ultrasound guidance, the right internal jugular vein was punctured with a micro-puncture set. A 0.035 angled Glidewire was advanced into the IVC. A 4 cm incision was made below the right clavicle and the pocket blunted dissected. A 8 [place]ian single-lumen catheter, 22 cm long, was advanced to the SVC/RA junction. The catheter was trimmed and attached to the port. The port aspirates and injects easily. The port was placed in the pocket and closed in 2 layers. An access needle was placed. The patient tolerated the procedure well. IMPRESSION: Ultrasound and fluoroscopically placed right internal jugular venous access port.
[2017-10-08] MEDS: Levalbuterol 0.63 MG/3 ML Inhal Soln UD IH PRN (23:39)
[2017-10-09] MEDS: Levalbuterol 0.63 MG/3 ML Inhal Soln UD IH SCH ×4 (01:15→20:05)
[2017-10-09] MEDS: guaiFENesin-Codeine 100-10mg/5ml Syrup (5 ml) UD PO PRN (01:54)
[2017-10-09] MEDS: Pantoprazole 40 mg EC Tab PO SCH (05:47)
--- NOTE | 2017-10-09 06:00 | CP.PCM.PN ---
<Kai Matos - Last Filed: 10/09/17 16:07> Subjective - Date & Time of Evaluation Date of Evaluation: 10/09/17 Time of Evaluation: 05:59 - Subjective Subjective: Kai Matos DO PGY1 Internal Medicine [employer]el[employer] Making Instructor Port placed last night; no issues reported overnight. Has not had any complaints this AM; no sob, hemoptysis significantly improving. Patient had 2 BM yesterday. Going for chemo this AM. No other issues at this time. Objective - Vital Signs/Intake and Output Vital Signs (last 24 hours): Temp Pulse Resp BP Pulse Ox 98 F 60 17 121/60 99 10/08/17 16:07 10/08/17 17:06 10/08/17 16:07 10/08/17 17:06 10/08/17 16:07 Intake and Output: 10/08/17 10/09/17 18:59 06:59 Intake Total 740 Output Total 300 Balance 440 - Medications Medications: Current Medications Apixaban (Eliquis) 5 mg PO BID FERNANDO PRN Reason: Protocol Last Admin: 10/08/17 17:10 Dose: 5 mg Benzonatate (Tessalon Perles) 100 mg PO Q8 FERNANDO Last Admin: 10/09/17 05:47 Dose: 100 mg Diphenhydramine HCl (Benadryl) 25 mg PO HS PRN PRN Reason: Insomnia Last Admin: 10/09/17 01:54 Dose: 25 mg Guaifenesin/Codeine Phosphate (Robitussin W/Codeine) 5 ml PO Q4H PRN PRN Reason: Cough and congestion Last Admin: 10/09/17 01:54 Dose: 5 ml Sodium Chloride (Sodium Chloride 0.9%) 1,000 mls @ 100 mls/hr IV .Q10H [facility] Last Admin: 10/08/17 12:36 Dose: 100 mls/hr Levalbuterol HCl (Xopenex) 0.63 mg IH Q2 PRN PRN Reason: Shortness of Breath Last Admin: 10/08/17 23:39 Dose: 0.63 mg Levalbuterol HCl (Xopenex) 0.63 mg IH [id number] Last Admin: 10/09/17 01:15 Dose: Not Given Megestrol Acetate (Megace) 200 mg PO DAILY [facility] Last Admin: 10/08/17 12:37 Dose: 200 mg Methylprednisolone (Solu-Medrol) 20 mg IVP DAILY [facility] Last Admin: 10/08/17 12:36 Dose: 20 mg Oxycodone HCl (Oxycodone Immediate Release Tab) 5 mg PO Q6H PRN PRN Reason: Pain, moderate (4-7) Last Admin: 10/08/17 22:02 Dose: 5 mg Pantoprazole Sodium (Protonix Ec Tab) 40 mg PO 0600 [facility] Last Admin: 10/09/17 05:47 Dose: 40 mg Polyethylene Glycol (Miralax) 17 gm PO BID [facility] Last Admin: 10/08/17 17:10 Dose: 17 gm Sotalol HCl (Betapace) 80 mg PO BID [facility] Last Admin: 10/08/17 17:06 Dose: 80 mg - Labs Labs: 10/08/17 06:10 10/08/17 06:10 PT 14.2 SECONDS (9.4-12.5) H 10/07/17 06:00 INR 1.23 10/07/17 06:00 APTT 23.8 Seconds (25.1-36.5) L 10/07/17 06:00 Physical Exam - Constitutional Appears: Well, Cachectic - Head Exam Head Exam: ATRAUMATIC, NORMAL INSPECTION, NORMOCEPHALIC - Eye Exam Eye Exam: EOMI, PERRL. absent: Scleral icterus - ENT Exam ENT Exam: Mucous Membranes Moist - Respiratory Exam Respiratory Exam: Breathing comfortably this AM; can appreciate RLL crackles; some wheezing heard - Cardiovascular Exam Cardiovascular Exam: RRR, +S1, +S2 - GI/Abdominal Exam GI & Abdominal Exam: Soft. 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 Patient was biopsied on 10/02 and is currently receiving palliative radiation at this time. Hospital course was complicated by new onset Afib which is rate controlled w/ sotalol, and anticoagulated w/ elqiuis. Port placement yesterday and started on chemoradiation Plan: Pulmonary Malignancy s/p CT guided biopsy CT chest 09/25: extensive mediastinal and hilar lymphadenopathy suspicious for underlying pulmonary malignancy. Lytic lesion at T7 consistent with metastatic disease. Scattered sclerotic lesions. Extensive R lower lobe pneumonia. Ct abd/ pelvis 09/25: scattered osteoblastic lesions in multiple vertebral bodies, posterior elements and ribs. Age-indeterminate fracture of L4 superior end-plate , may be acute and/or pathologic. Low density lesion in anterolateral liver, metastasis suspected. Ct head 09/27: no evidence of metastatic disease, no acute intracranial findings Bone scan 09/26: findings consistent with bony metastatic disease Patient underwent CT guided biopsy of lung mass on 10/01 complicated by pneumothorax now resolved; chest tube was placed due to pneumothorax and has now been removed Patient hemoptysis improving Unofficial pathology of hilar mass - Small Cell Ca; Official report pending Patient has received port and one dose of chemo therapy. Consults: ID Consulted (Dr. Coker), recs appreciated Pulm consulted (Dr. García), recs appreciated - c/w Xopenex Q6H , Solumedrol 20mg Q12H Heme/onc consulted (Dr. Lomeli), recs appreciated -c/w megace, pallative radiation as per IR, port placement 10/08, x1 treatment ChemoRad tentative on 10/09 , Discussed with pathologist Dr Cage regarding patient's biopsy, like small cell lung carcinoma, will await for official pathology reports: Radiation onc consulted (Dr. Iqbal), recs appreciated - Patient receiving pallative radiation Transaminitis, Continues to be Down Trending New onset elevated transaminases in hepatocellular pattern Hepatotoxic meds discontinued Ceftriaxone discontinued 10/05/[address] Bynum, recs appreciated * Differential include decompensation in light of liver metastases, DILI with recent initiation of Ceftriaxone or possible compression of hepatic vasculature as a result of metastatic disease * Patient refusing MRI at this time given claustrophobia and previous negative experience Post-Obstructive Pneumonia CXR on admission 09/25: extensive alveolar infiltrate in R lower lobe consistent with pneumonia Pt. afebrile; w/ some c/o of cough WBC uptrending most likely 2/2 Steroids C/w Solumderol 20 QD C/w Xopenex as per pulm reccs C/w Robitussin+Codeine PRN and Tessalon perles PRN C/w bronchodialator Xopenex as per pulm reccs ID consulted (Dr. Coker), recs appreciated Pulm consulted (Dr. García), recs appreciated New-onset atrial fibrillation with rapid ventricular response Rapid response called on 09/26/17; pt had additional episode overnight that converted back to normal sinus rhythm spontaneously Pt. off tele Continue Sotalol as per cardiology Start anticoagulation w/ eliquis 5mg BID Cardio consulted (Dr. Chirinos), recs appreciated Electrolyte abnormalities HyperK/ Hypophos / Hyper mag Continue following levels; treat/replete as necessary Treat hypophos w/ sodium phos as to not upset other electrolyte balances Nephrology (Dr Barrera) has signed off DVT/GI ppx: SCD /Protonix Disposition plan: Pt. is found to be candidate for TCU placement; will transfer patient in AM if he tolerated chemotherapy well today. Patient seen, examined, and case discussed w/ attending physician Dr. Graciela Matos DO PGY1 Internal Medicine [employer] Instructor - Pager [phone] <Lenka Owens - Last Filed: 10/11/17 16:02> Objective - Vital Signs/Intake and Output Vital Signs (last 24 hours): Temp Pulse Resp BP Pulse Ox 97.5 F L 65 20 116/62 97 10/11/17 06:00 10/11/17 09:49 10/11/17 06:00 10/11/17 09:49 10/11/17 06:00 Intake and Output: 10/11/17 10/11/17 06:59 18:59 Intake Total 1800 Output Total 1150 Balance 650 - Medications Medications: Current Medications Apixaban (Eliquis) 5 mg PO BID FERNANDO PRN Reason: Protocol Last Admin: 10/11/17 09:49 Dose: 5 mg Benzonatate (Tessalon Perles) 100 mg PO Q8 FERNANDO Last Admin: 10/11/17 13:26 Dose: 100 mg Diphenhydramine HCl (Benadryl) 25 mg PO HS PRN PRN Reason: Insomnia Last Admin: 10/11/17 01:44 Dose: 25 mg Guaifenesin/Codeine Phosphate (Robitussin W/Codeine) 5 ml PO Q4H [facility] Last Admin: 10/11/17 13:25 Dose: 5 ml Sodium Chloride (Sodium Chloride 0.9%) 1,000 mls @ 100 mls/hr IV .Q10H [facility] Last Admin: 10/11/17 09:53 Dose: 100 mls/hr Etoposide 150 mg/ Sodium (Chloride) 507.5 mls @ 253.75 mls/hr IV ONCE ONE Stop: 10/11/17 16:59 Last Admin: 10/11/17 14:48 Dose: 253.75 mls/hr Levalbuterol HCl (Xopenex) 0.63 mg IH [id number] Last Admin: 10/11/17 13:39 Dose: 0.63 mg Megestrol Acetate (Megace) 200 mg PO DAILY [facility] Last Admin: 10/11/17 09:50 Dose: 200 mg Oxycodone HCl (Oxycodone Immediate Release Tab) 5 mg PO Q6H PRN PRN Reason: Pain, moderate (4-7) Last Admin: 10/09/17 21:34 Dose: 5 mg Pantoprazole Sodium (Protonix Ec Tab) 40 mg PO 0600 [facility] Last Admin: 10/11/17 05:13 Dose: 40 mg Polyethylene Glycol (Miralax) 17 gm PO BID [facility] Last Admin: 10/11/17 09:50 Dose: 17 gm Sotalol HCl (Betapace) 80 mg PO BID [facility] Last Admin: 10/11/17 09:49 Dose: 80 mg - Labs Labs: 10/11/17 05:40 10/11/17 05:40 PT 14.2 SECONDS (9.4-12.5) H 10/07/17 06:00 INR 1.23 10/07/17 06:00 APTT 23.8 Seconds (25.1-36.5) L 10/07/17 06:00 Attending/Attestation - Attestation I have personally seen and examined this patient.: Yes I have fully participated in the care of the patient.: Yes I have reviewed all pertinent clinical information, including history, physical exam and plan: Yes Notes (Text): 10/11/17 16:01 Medical record note made by the resident after discussion with my direction and input after the patient was personally seen and examined by me. I have reviewed the chart and agree that the record accurately reflects by personal performance of the history, physical exam, data review, and medical decision-making, in the course for the patient. I have also personally directed the plan of care.
[2017-10-09 07:02] LABS: BASO # 0.06 K/mm3 (0.0-2.0); BASO % 0.5 % (0.0-3.0); EOS # 0.2 (0.0-0.7); GRAN # 9.42 (1.4-6.5); HEMOGLOBIN 13.6 g/dL (14.0-18.0); LYMPH # 0.9 (1.2-3.4); LYMPH % 7.4 % (22.0-35.0); MEAN CELL VOLUME 84.7 fl (80.0-105.0); MEAN CORPUSCULAR HEMOGLOBIN 28.5 pg (25.0-35.0); MEAN CORPUSCULAR HGB CONC 33.7 g/dl (31.0-37.0); MEAN PLATELET VOLUME 9.7 fl (7.0-11.0); MONO # 1.5 (0.1-0.6); MONO % 12.1 % (1.0-6.0); RBC 4.77 10^6/uL (3.5-6.1); RED CELL DISTRIBUTION WIDTH 14.2 % (11.5-14.5); WHITE BLOOD COUNT 12.1 10^3/ul (4.5-11.0)
[2017-10-09 08:13] LABS: BLOOD UREA NITROGEN 21 mg/dL (7-21); GFR AFRICAN-AMERICAN > 60; GFR NON-AFRICAN AMERICAN > 60
[2017-10-09 08:14] LABS: ALB/GLOB RATIO 0.9 (1.1-1.8); ALBUMIN 2.8 g/dL (3.0-4.8); AST/SGOT 69 U/L (17-59)
[2017-10-09 08:15] LABS: ALT/SGPT 245 U/L (7-56)
[2017-10-09] MEDS: Megestrol Acetate 40 mg/ml Cup PO SCH (09:55)
[2017-10-09] MEDS: MethylPREDNISolone 40 mg Vial IVP SCH (09:56)
[2017-10-09] MEDS: POLYETHYLENE GLYCOL 3350 17 GM/Dose PACKET PO SCH ×2 (09:56→17:22)
--- NOTE | 2017-10-09 10:55 | CP.PCM.PN ---
Subjective - Date & Time of Evaluation Date of Evaluation: 10/09/17 Time of Evaluation: 10:10 - Subjective Subjective: Seen and examined at bedside, chart reviewed. Return from RT this am. Tolerated breakfast, s/p port for chemo yesterday. No c/o N/V or abdominal pain. Had BM, no reports of diarrhea. No reports of overt GI bleeding. Objective - Vital Signs/Intake and Output Vital Signs (last 24 hours): Temp Pulse Resp BP Pulse Ox 98.2 F 67 20 114/61 98 10/09/17 08:22 10/09/17 09:55 10/09/17 08:22 10/09/17 09:55 10/09/17 08:22 Intake and Output: 10/09/17 10/09/17 06:59 18:59 Intake Total 800 Balance 800 - Medications Medications: Current Medications Apixaban (Eliquis) 5 mg PO BID FERNANDO PRN Reason: Protocol Last Admin: 10/09/17 09:55 Dose: 5 mg Benzonatate (Tessalon Perles) 100 mg PO Q8 FERNANDO Last Admin: 10/09/17 05:47 Dose: 100 mg Diphenhydramine HCl (Benadryl) 25 mg PO HS PRN PRN Reason: Insomnia Last Admin: 10/09/17 01:54 Dose: 25 mg Guaifenesin/Codeine Phosphate (Robitussin W/Codeine) 5 ml PO Q4H PRN PRN Reason: Cough and congestion Last Admin: 10/09/17 01:54 Dose: 5 ml Sodium Chloride (Sodium Chloride 0.9%) 1,000 mls @ 100 mls/hr IV .Q10H [facility] Last Admin: 10/08/17 12:36 Dose: 100 mls/hr Ondansetron HCl 16 mg/Dexamethasone 20 mg/Diphenhydramine HCl 25 mg/Famotidine 20 mg/ Sodium Chloride 65.5 mls @ 162 mls/hr IVPB ONCE ONE Stop: 10/09/17 14:24 Carboplatin 475 mg/ Sodium (Chloride) 297.5 mls @ 297.5 mls/hr IV ONCE ONE Stop: 10/09/17 14:59 Etoposide 150 mg/ Sodium (Chloride) 507.5 mls @ 253.75 mls/hr IV ONCE ONE Stop: 10/09/17 15:59 Levalbuterol HCl (Xopenex) 0.63 mg IH Q2 PRN PRN Reason: Shortness of Breath Last Admin: 10/08/17 23:39 Dose: 0.63 mg Levalbuterol HCl (Xopenex) 0.63 mg IH [id number] [facility] Last Admin: 10/09/17 08:08 Dose: 0.63 mg Lorazepam (Ativan) 0.5 mg IV ONCE ONE Stop: 10/09/17 14:01 Megestrol Acetate (Megace) 200 mg PO DAILY [facility] Last Admin: 10/09/17 09:55 Dose: 200 mg Methylprednisolone (Solu-Medrol) 20 mg IVP DAILY [facility] Last Admin: 10/09/17 09:56 Dose: 20 mg Oxycodone HCl (Oxycodone Immediate Release Tab) 5 mg PO Q6H PRN PRN Reason: Pain, moderate (4-7) Last Admin: 10/08/17 22:02 Dose: 5 mg Pantoprazole Sodium (Protonix Ec Tab) 40 mg PO 0600 [facility] Last Admin: 10/09/17 05:47 Dose: 40 mg Polyethylene Glycol (Miralax) 17 gm PO BID [facility] Last Admin: 10/09/17 09:56 Dose: 17 gm Sotalol HCl (Betapace) 80 mg PO BID [facility] Last Admin: 10/09/17 09:55 Dose: 80 mg - Labs Labs: 10/09/17 06:50 10/09/17 06:50 PT 14.2 SECONDS (9.4-12.5) H 10/07/17 06:00 INR 1.23 10/07/17 06:00 APTT 23.8 Seconds (25.1-36.5) L 10/07/17 06:00 - Constitutional Appears: No Acute Distress - Head Exam Head Exam: NORMOCEPHALIC - Eye Exam Eye Exam: Normal appearance. absent: Scleral icterus - ENT Exam ENT Exam: Mucous Membranes Moist - Neck Exam Neck Exam: Normal Inspection - Respiratory Exam Respiratory Exam: NORMAL BREATHING PATTERN. absent: Respiratory Distress - Cardiovascular Exam Cardiovascular Exam: +S1, +S2 - GI/Abdominal Exam GI & Abdominal Exam: Soft, Normal Bowel Sounds. absent: Guarding, Tenderness, Rebound - Extremities Exam Extremities Exam: absent: Calf Tenderness, Pedal Edema - Neurological Exam Neurological Exam: Alert, Awake, Oriented x3 - Skin Skin Exam: Dry, Warm Assessment and Plan - Assessment and Plan (Free Text) Assessment: Assessment: Abnormal LFTs,Differential include decompensation in light of liver metastases, DILI with recent initiation of Ceftriaxone or possible compression of hepatic vasculature as a result of metastatic disease Non-small cell lung cancer with metastasis H/O paroxsymal Atrial Fibrillation Plan: continue to monitor LFTs, show downward trend continue PPI on Eliquis Patient refusing MRI, claustrophobic to start chemo today on Radiation treatment as per oncology Seen and discussed w/ Dr. Bynum.
[2017-10-09] MEDS ORDERED: Ondansetron 16 MG, Dexamethasone 20 MG, DiphenhydrAMINE 25 MG, Famotidine 20 MG in Sodi... IVPB ONE (14:00)
[2017-10-09] MEDS ORDERED: Albuterol-Ipratrop 3 mg / 0.5 (3 ml) UD IH SCH (14:00)
[2017-10-09] MEDS: Sodium Chloride 0.9% 1,000 ML IV SCH (17:09)
--- NOTE | 2017-10-09 19:16 | CP.PCM.PN ---
Subjective - Date & Time of Evaluation Date of Evaluation: 10/09/17 Time of Evaluation: 17:30 - Subjective Subjective: Infectious Disease Follow Up: October 09, 2017 76 yo male with presentation of SOB and cough productive of sputum. The patient has had symptoms for the past 3 weeks. He was recently in [place] for his son's wedding. Patient states that "food does not taste the same". He has lost [address] scan showing extensive right lower lobe pneumonia but what is more concerning is the extensive mediastinal and hilar adenopathy with lytic lesion at T7. The patient has been started on IV Rocephin and Azithromycin for antibiotic care. No WBC. Procalcitonin of 8.8 at this time. New onset Atrial Fibrillation two nights ago... transferred to telemetry. The family and the patient have been refusing biopsy at this time. Emphasized to the patient and present family members (daughter and son-in-law) importance of the biopsy in determining diagnosis and type of treatment options available for the patient. Patient states that he is not sleeping well in the hospital. Noted the patient with Atrial fibrillation last night. Taken for lung biopsy this week. The patient with hemoptysis. Seen by radiation oncology Dr. Iqbal for palliative radiation evaluation. Receiving radiation. Noted transaminitis. Hemoptysis improved. Pain in chest/lungs subsiding. Appetite still weak. 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 Objective - Vital Signs/Intake and Output Vital Signs (last 24 hours): Temp Pulse Resp BP Pulse Ox 98.6 F 60 20 110/64 97 10/09/17 17:07 10/09/17 17:22 10/09/17 17:07 10/09/17 17:22 10/09/17 17:07 Intake and Output: 10/09/17 10/10/17 18:59 06:59 Intake Total 1550 Output Total 100 Balance 1450 - Medications Medications: Current Medications Apixaban (Eliquis) 5 mg PO BID FERNANDO PRN Reason: Protocol Last Admin: 10/09/17 17:22 Dose: 5 mg Benzonatate (Tessalon Perles) 100 mg PO Q8 [facility] Last Admin: 10/09/17 14:45 Dose: 100 mg Diphenhydramine HCl (Benadryl) 25 mg PO HS PRN PRN Reason: Insomnia Last Admin: 10/09/17 01:54 Dose: 25 mg Guaifenesin/Codeine Phosphate (Robitussin W/Codeine) 5 ml PO Q4H PRN PRN Reason: Cough and congestion Last Admin: 10/09/17 01:54 Dose: 5 ml Sodium Chloride (Sodium Chloride 0.9%) 1,000 mls @ 100 mls/hr IV .Q10H [facility] Last Admin: 10/09/17 17:09 Dose: 100 mls/hr Levalbuterol HCl (Xopenex) 0.63 mg IH [id number] [facility] Last Admin: 10/09/17 14:00 Dose: 0.63 mg Megestrol Acetate (Megace) 200 mg PO DAILY [facility] Last Admin: 10/09/17 09:55 Dose: 200 mg Methylprednisolone (Solu-Medrol) 20 mg IVP DAILY [facility] Last Admin: 10/09/17 09:56 Dose: 20 mg Oxycodone HCl (Oxycodone Immediate Release Tab) 5 mg PO Q6H PRN PRN Reason: Pain, moderate (4-7) Last Admin: 10/08/17 22:02 Dose: 5 mg Pantoprazole Sodium (Protonix Ec Tab) 40 mg PO 0600 [facility] Last Admin: 10/09/17 05:47 Dose: 40 mg Polyethylene Glycol (Miralax) 17 gm PO BID [facility] Last Admin: 10/09/17 17:22 Dose: 17 gm Sotalol HCl (Betapace) 80 mg PO BID [facility] Last Admin: 10/09/17 17:22 Dose: 80 mg - Labs Labs: 10/09/17 06:50 10/09/17 06:50 PT 14.2 SECONDS (9.4-12.5) H 10/07/17 06:00 INR 1.23 10/07/17 06:00 APTT 23.8 Seconds (25.1-36.5) L 10/07/17 06:00 - Constitutional Appears: Non-toxic, No Acute Distress, Chronically Ill - Head Exam Head Exam: ATRAUMATIC, NORMOCEPHALIC - Eye Exam Eye Exam: EOMI, PERRL Pupil Exam: NORMAL ACCOMODATION, PERRL - ENT Exam ENT Exam: Mucous Membranes Moist, Normal External Ear Exam, TM's Normal Bilaterally - Neck Exam Neck Exam: Full ROM, Normal Inspection - Respiratory Exam Respiratory Exam: Clear to Ausculation Bilateral, NORMAL BREATHING PATTERN. absent: Rales, Rhonchi, Wheezes - Cardiovascular Exam Cardiovascular Exam: REGULAR RHYTHM, RRR, +S1, +S2 - GI/Abdominal Exam GI & Abdominal Exam: Soft, Normal Bowel Sounds. absent: Distended, Tenderness - Extremities Exam Extremities Exam: Full ROM, Normal Inspection - Neurological Exam Neurological Exam: Alert, Awake, CN II-XII Intact, Oriented x3 - Psychiatric Exam Psychiatric exam: Normal Affect, Normal Mood - Skin Skin Exam: Intact, Normal Color Assessment and Plan - Assessment and Plan (Free Text) Assessment: 76 yo male with large amount of weight loss (19 lbs) and multiple CT lung findings. The patient started on Ceftriaxone and Azithromycin. Must rule out malignancy. Check for Tuberculosis. Check PPD and Quantiferon. Consider surgery or IR evaluation for biopsy of suspicious areas. Supportive care. May need Heme/Onc evaluation as well. Check ESR and C-Reactive Protein. The most likely diagnosis given the current symptoms is malignancy. Given overall picture, Tuberculosis is a much less likely diagnosis. Malignancy is extremely likely. Overall penitentiary prognosis is very poor. Discussed with family and the patient importance of a biopsy in determining diagnosis and available care/ treatment options. Rocephin on hold due to sudden transaminitis. Taken for lung/liver biopsy. Pathology pending. Patient has chest tube in place for pneumothorax from procedure. Hemoptysis improving. For Port-A-Cath on Sunday and possible chemotherapy. Preliminary pathology showing small cell carcinoma. Port-A-Cath placed. Chemotherapy started this AM. Thank you for allowing me to participate in the care of the patient, we will follow with you.
--- NOTE | 2017-10-09 21:00 | PN ---
Copied To: Hansel Keenan MD Attending MD: Hansel Keenan MD DATE: 10/09/2017 SUBJECTIVE: The patient is currently seen comfortable supine in bed on 3R. Family is in the room. Repeat potassium level has improved down to 4.7. His BUN has improved, it is 21 with a creatinine of 0.7. Liver enzymes remain elevated. OBJECTIVE: INTAKE/OUTPUT: Intake is 1540, output is 300. VITAL SIGNS: Blood pressure 110/64, temperature 98.6, respiratory rate of 20 with a pulse of 60. HEENT: Exam shows him to be normocephalic, atraumatic. Conjunctivae remain pink. Sclerae are nonicteric. NECK: Supple. No neck vein distention. CHEST: Clear to auscultation and percussion with no rales, rhonchi or wheezing. CARDIOVASCULAR: Shows an irregular S1, S2. No audible murmurs, rubs or gallops. ABDOMEN: Soft. Bowel sounds normal. No rebound, guarding or masses. EXTREMITIES: Show no lower extremity cyanosis, clubbing or edema. MEDICATIONS: The patient is currently on Benadryl, Betapace, Eliquis, Megace, MiraLax, oxycodone, Protonix, Robitussin with codeine p.r.n., normal saline, Solu-Medrol, Tessalon Perles and Xopenex. LABORATORY DATA AND IMAGING: CBC, white blood cell count 12.1, hemoglobin 13.6, platelet count is 327,000. Chemistry showed normal electrolytes. Potassium is now 4.7. BUN 21 with a creatinine of 0.7. Glucose is 118. Calcium 8.0, corrects to normal. Albumin is 2.8. Last phosphorus 2.6 with a magnesium of 2.5. Liver enzymes remain elevated. Bilirubin levels normal. ASSESSMENT: 1. Stage IV metastatic lung cancer with bone metastasis and metastasis to mediastinum. The patient continues on radiation therapy. 2. Status post mild hyperkalemia. This has resolved. The patient remains off potassium supplements, remains on potassium free IV fluid hydration. 3. Status post mild hypophosphatemia. Phosphorus level is now normal at 2.6. 4. Elevated liver enzymes. PLAN: 1. The patient is stable from a renal standpoint. If necessary, the patient may receive Neutra-Phos if his phosphorus level should fall. 2. Continue management as per Oncology and Radiation therapy. 3. Slight elevation of BUN secondary to steroids. This has improved with IV fluid hydration. 4. We can monitor the patient on an as-needed basis. Hansel Keenan MD
[2017-10-09] MEDS: oxyCODONE 5 mg Immediate Release Tab PO PRN (21:34)
--- NOTE | 2017-10-09 21:58 | PN ---
Copied To: Lenka García MD Attending MD: Lenka García MD DATE: 10/09/2017 REFERRING PHYSICIAN: Dr. Larkin. SUBJECTIVE: The patient is lying in the bed, head at 45 degrees, sleepy, arousable, feels okay. Decreased cough. No hemoptysis. No chest pain. No nausea, no vomiting, no diarrhea. No leg pain or leg swelling, status post right-sided Port-A-Cath. OBJECTIVE GENERAL: In no acute distress. VITAL SIGNS: Temperature is 98, heart rate 60, respiratory rate is 20, blood pressure 110/64, pulse ox 97% on 3 liters nasal cannula. HEENT: Moist mucous membrane. Crowded airway. NECK: Supple. No JVD. Has a right chest Port-A-Cath. LUNGS: Have few scattered rhonchi. HEART: S1, S2. ABDOMEN: Soft, nontender, no organomegaly. EXTREMITIES: No edema. NEUROLOGIC: Awake, alert, follows simple command. MEDICATIONS: He is on Benadryl 25 mg at bedtime, Betapace 80 mg twice a day, Eliquis 5 mg twice a day, Megace 200 mg daily, MiraLax 17 g twice a day, Oxycodone 5 mg every 6 hours p.r.n., Protonix 40 mg daily, Robitussin with Codeine 5 ml every 4 hours. p.r.n., IV fluid normal saline 100 mL per hour, Solu-Medrol 20 mg daily, Tessalon Perles 100 mg every 8 hours, Xopenex inhaled every 6 hours. LABORATORY DATA: Shows hemoglobin 13.7, hematocrit 40, WBC 12.1, platelet is 327. Sodium 132, potassium 4.7, chloride 101, bicarbonate 26, BUN 21, creatinine 0.7, glucose 118, calcium is 8, AST 69, ALT 245, alk phos is 98. Albumin is 2.8. Microbiology, blood culture, sputum culture, there is no growth. IMPRESSION AND PLAN: Unresectable lung cancer, status post biopsy, status post pneumothorax and hemoptysis which is improved, chronic obstructive lung disease. Pulmonary point of view, doing okay. Received Port-A-Cath yesterday. Waiting for chemotherapy. Pulmonary point of view, continue inhaled bronchodilator. Taper off steroids. Gastric prophylaxis. Out of bed to chair, physical therapy. Thank you and we will follow with you. Lenka García MD [facility] # [id number]
[2017-10-10] MEDS: Levalbuterol 0.63 MG/3 ML Inhal Soln UD IH SCH ×4 (02:35→19:21)
[2017-10-10] MEDS: Pantoprazole 40 mg EC Tab PO SCH (05:18)
--- NOTE | 2017-10-10 05:35 | PN ---
Copied To: Dustin Lomeli MD Attending MD: Dustin Lomeli MD DATE: 10/09/2017 ONCOLOGY PROGRESS NOTE LOCATION: The patient is in room 367, bed 2. REFERRING DOCTOR: Dr. Larkin. PROBLEM: This is a 76-year-old male of origin who was recently admitted to the hospital with progressive shortness of breath, coughing, wheezing. Findings on chest x-ray what appeared to be right lower lobe pneumonia. CAT scan of the chest revealed obstruction with postobstructive atelectasis in the right lower lobe secondary to a right hilar mass, which was huge. This mass was eventually biopsied consistent with small cell carcinoma of the lung. 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 The patient subsequent to that was documented to have liver and bone metastasis. Because he has cough and having active hemoptysis, post biopsy the patient was started empirically on radiation to the right hilum and to decrease the hemoptysis, but more importantly also to help alleviate and open the obstruction to the right mainstem and right lower lobe bronchus. The patient then had a venous port put in and is to start and initiate systemic chemotherapy today with Platinol and etoposide based chemotherapy. The patient's LFTs were abnormal and they are gradually coming back and trending towards normal. The AST and ALT were elevated. The alkaline phosphatase was also elevated, but the total bilirubin was completely normal. Kidney functions have been normal. The patient had one episode of paroxysmal atrial fibrillation, which has since then normalized, may have been related to his intrinsic lung dysfunction and the patient is being debated on being putting on long-term anticoagulants. SUBJECTIVE: The patient is seen lying in the bed, head at 45 degrees. He is sleepy, but feels okay. Decreased cough. No hemoptysis, no chest pain, nausea, vomiting or diarrhea. No leg pain, no leg swelling, status post placement of a right-sided Port-A-Cath. PHYSICAL EXAMINATION: GENERAL: The patient is in no acute distress. VITAL SIGNS: Stable. T-max is 98.4, heart rate is 60, respirations 20, blood pressure is 110/64, and pulse ox is 97% on 3 L of oxygen. HEENT: Head is normocephalic, atraumatic. Conjunctivae pale. Sclerae are anicteric. Pupils are equally reactive to light and accommodation. Examination of the oropharynx reveals tongue to be moist. No ulcerations are noted. There is no evidence of fungal infection or candidiasis. NECK: Supple. There is no adenopathy. The patient has a newly placed port on the right side on his chest wall with the tape extending to the root of his neck. LUNGS: Reveals bilateral scattered wheezes and rhonchi. HEART: Examination of the heart reveals PMI to be in the fifth intercostal space inside the midclavicular line. S1 and S2 are normal. No gallop or murmur is heard. ABDOMEN: Soft, nontender. Liver and spleen are not palpable. No rebound, rigidity, or guarding is noted. EXTREMITIES: There is no cyanosis, clubbing or edema. NEUROLOGIC: Reveals higher functions to be normal. No focal deficits are noted. AND RECTAL: Deferred. Examination for adenopathy reveals no evidence of any nodes in the neck, axilla or groin. SKIN: Turgor is normal. No skin lesions are noted. MEDICATIONS: The patient's medications were reviewed. He is on Benadryl 25 mg at bedtime, Betapace 80 mg twice a day, Eliquis 5 mg twice a day, Megace 200 mg daily, MiraLax 17 g twice a day, oxycodone 5 mg every 6 hours, Protonix 40 mg daily, Robitussin with codeine 5 mL every 4 hours as needed. He is on IV fluid 100 mL an hour, Solu-Medrol 20 mg daily. He is on Tessalon Perles 100 mg every 8 hours and Xopenex inhaled every 6 hours. LABORATORY DATA: Reveals a hemoglobin of 13.7, hematocrit 40, white count of 12.1, and platelet count of 327,000. Sodium is 132, K is 4.7, chloride 101, bicarbonate is 26, BUN of 21, creatinine 0.7, glucose 118, calcium is 8. AST 69, ALT is 245, alkaline phosphatase is 98, albumin is 2.8. Microbiology: Blood cultures and sputum cultures revealed no growth at this point in time. ASSESSMENT NOTES AND PLAN: The patient has extensive small cell lung carcinoma with documented bone and lung metastasis, status post pneumothorax, which has improved, hemoptysis for which he started electively radiation. Hemoptysis has also improved. Currently going to be initiated systemic chemotherapy with carboplatin and etoposide that will be given daily for three days and then repeated in 28 days. From an oncologic perspective, the patient is ready to go with his chemotherapy. Orders have been written. The patient will initiate treatment today. The patient will continue his other inhaled bronchodilators while tapering off the steroids, on gastric prophylaxis, deep venous thrombosis, and already on Eliquis for his atrial fibrillation. Once the chemo is completed, we will push for active aggressive physical therapy. The patient was inquiring about home oxygen, will just speak to Dr. García. When the time is appropriate, we will set up for home oxygen if necessary. Daily blood work for the next three days have been requested. Please make a note, this is a complex patient with multiple comorbid medical issues, writing the orders, correlating all the data, talking to the various consultants, talking to the family in great detail. It took me more than 2 hours. This is a medically necessary and appropriate visit for this patient with extensive small cell lung carcinoma. Dustin Lomeli MD
[2017-10-10 06:20] LABS: BASO # 0.03 K/mm3 (0.0-2.0); BASO % 0.3 % (0.0-3.0); GRAN # 8.61 (1.4-6.5); GRAN % 90.5 % (50.0-68.0); HEMOGLOBIN 12.7 g/dL (14.0-18.0); LYMPH # 0.5 (1.2-3.4); MEAN CELL VOLUME 85.6 fl (80.0-105.0); MEAN CORPUSCULAR HGB CONC 33.9 g/dl (31.0-37.0); MEAN PLATELET VOLUME 9.8 fl (7.0-11.0); MONO # 0.4 (0.1-0.6); MONO % 4.2 % (1.0-6.0); PLATELET COUNT 299 10^3/uL (120.0-450.0); RBC 4.38 10^6/uL (3.5-6.1); RED CELL DISTRIBUTION WIDTH 14.3 % (11.5-14.5); WHITE BLOOD COUNT 9.5 10^3/ul (4.5-11.0)
[2017-10-10 06:45] LABS: ALB/GLOB RATIO 0.9 (1.1-1.8); ALBUMIN 2.6 g/dL (3.0-4.8); ALT/SGPT 187 U/L (7-56); AST/SGOT 60 U/L (17-59); BLOOD UREA NITROGEN 18 mg/dL (7-21); CALCIUM 7.5 mg/dL (8.4-10.5); GFR AFRICAN-AMERICAN > 60; GFR NON-AFRICAN AMERICAN > 60
[2017-10-10 08:07] LABS: BAND 2 % (0-2); LYMPHOCYTE 2 % (22.0-35.0); METAMYELOCYTE 1 %; MONOCYTE 1 % (1.0-6.0); NEUTROPHIL 94 % (50.0-70.0); PLATELET ESTIMATE NORMAL (NORMAL)
--- NOTE | 2017-10-10 10:02 | CP.PCM.PN ---
Subjective - Date & Time of Evaluation Date of Evaluation: 10/10/17 Time of Evaluation: 09:00 - Subjective Subjective: Seen and examined at bedside, chart reviewed, patient had chemo yesterday, patient denies N/V or abdominal pain. Having small BM as per patient, no diarrhea or report soft overt. Eating, no c/o dysphagia. As per nursing patient had some confusion, maybe after getting premeds before chemo of Ativan, currently patient is awake and alert but denies getting chemotherapy yesterday. Objective - Vital Signs/Intake and Output Vital Signs (last 24 hours): Temp Pulse Resp BP Pulse Ox 98.3 F 71 19 95/58 L 91 L 10/10/17 07:56 10/10/17 07:56 10/10/17 07:56 10/10/17 07:56 10/10/17 07:56 Intake and Output: 10/10/17 10/10/17 06:59 18:59 Intake Total 1560 Balance 1560 - Medications Medications: Current Medications Apixaban (Eliquis) 5 mg PO BID FERNANDO PRN Reason: Protocol Last Admin: 10/09/17 17:22 Dose: 5 mg Benzonatate (Tessalon Perles) 100 mg PO Q8 [facility]ERNANDO Last Admin: 10/10/17 05:18 Dose: 100 mg Diphenhydramine HCl (Benadryl) 25 mg PO HS PRN PRN Reason: Insomnia Last Admin: 10/09/17 01:54 Dose: 25 mg Guaifenesin/Codeine Phosphate (Robitussin W/Codeine) 5 ml PO Q4H PRN PRN Reason: Cough and congestion Last Admin: 10/09/17 01:54 Dose: 5 ml Sodium Chloride (Sodium Chloride 0.9%) 1,000 mls @ 100 mls/hr IV .Q10H FERNANDO Last Admin: 10/09/17 17:09 Dose: 100 mls/hr Ondansetron HCl 16 mg/Dexamethasone 20 mg/Diphenhydramine HCl 25 mg/Famotidine 20 mg/ Sodium Chloride 65.5 mls @ 162 mls/hr IVPB ONCE ONE Stop: 10/10/17 14:24 Etoposide 150 mg/ Sodium (Chloride) 507.5 mls @ 253.75 mls/hr IV ONCE ONE Stop: 10/10/17 15:59 Levalbuterol HCl (Xopenex) 0.63 mg IH [id number] [facility] Last Admin: 10/10/17 08:25 Dose: 0.63 mg Megestrol Acetate (Megace) 200 mg PO DAILY [facility] Last Admin: 10/09/17 09:55 Dose: 200 mg Methylprednisolone (Solu-Medrol) 20 mg IVP DAILY [facility] Last Admin: 10/09/17 09:56 Dose: 20 mg Oxycodone HCl (Oxycodone Immediate Release Tab) 5 mg PO Q6H PRN PRN Reason: Pain, moderate (4-7) Last Admin: 10/09/17 21:34 Dose: 5 mg Pantoprazole Sodium (Protonix Ec Tab) 40 mg PO 0600 [facility] Last Admin: 10/10/17 05:18 Dose: 40 mg Polyethylene Glycol (Miralax) 17 gm PO BID [facility] Last Admin: 10/09/17 17:22 Dose: 17 gm Sotalol HCl (Betapace) 80 mg PO BID [facility] Last Admin: 10/09/17 17:22 Dose: 80 mg - Labs Labs: 10/10/17 06:00 10/10/17 06:00 PT 14.2 SECONDS (9.4-12.5) H 10/07/17 06:00 INR 1.23 10/07/17 06:00 APTT 23.8 Seconds (25.1-36.5) L 10/07/17 06:00 - Constitutional Appears: No Acute Distress - Head Exam Head Exam: NORMOCEPHALIC - Eye Exam Eye Exam: Normal appearance. absent: Scleral icterus - ENT Exam ENT Exam: Mucous Membranes Moist - Neck Exam Neck Exam: Normal Inspection - Respiratory Exam Respiratory Exam: NORMAL BREATHING PATTERN. absent: Respiratory Distress - Cardiovascular Exam Cardiovascular Exam: +S1, +S2 - GI/Abdominal Exam GI & Abdominal Exam: Soft, Normal Bowel Sounds. absent: Guarding, Tenderness, Rebound - Extremities Exam Extremities Exam: absent: Calf Tenderness, Pedal Edema - Neurological Exam Neurological Exam: Alert, Awake, Oriented x3 - Skin Skin Exam: Dry, Warm Assessment and Plan - Assessment and Plan (Free Text) Assessment: Assessment: Abnormal LFTs,Differential include decompensation in light of liver metastases, DILI with recent initiation of Ceftriaxone or possible compression of hepatic vasculature as a result of metastatic disease Non-small cell lung cancer with metastasis H/O Paroxsymal Atrial Fibrillation Plan: continue to monitor LFTs, show downward trend continue PPI continue diet as tolerated on Eliquis Patient refusing MRI, claustrophobic on chemo as per oncology on Radiation treatment as per oncology Seen and discussed w/ Dr. Bynum.
--- NOTE | 2017-10-10 12:16 | CP.PCM.PN ---
Subjective - Date & Time of Evaluation Date of Evaluation: 10/10/17 Time of Evaluation: 12:04 - Subjective Subjective: Sobeida Dukes, PGY2, Heme-Onc Progress Note for Dr Lomeli: This is a 76 year old male with PMH gastric ulcer, gastritis, admitted for pneumonia, found to have small cell lung carcinoma with extensive mediastinal and hilar adenopathy and lytic lesions at T7, other vertebral bodies and liver mets, s/p radiation treatments and 1 chemotherapy session yesterday. Needs 2 additional chemo sessions. Patient seen and examined at bedside. No acute events overnight. Patient reports persistent cough with mild red blood in sputum. MAR reviewed, patient's robitussin changed from prn to scheduled. Reports that his appetite is well. Had soft brown BM this AM. Patient will undergo 2nd session of chemotherapy today. Family requests home O2 use. Denies fevers, chills, nausea, vomiting, abdominal pain, leg swelling, urinary complaints, easy bruising. Objective - Vital Signs/Intake and Output Vital Signs (last 24 hours): Temp Pulse Resp BP Pulse Ox 98.3 F 71 19 95/58 L 91 L 10/10/17 07:56 10/10/17 07:56 10/10/17 07:56 10/10/17 07:56 10/10/17 07:56 Intake and Output: 10/10/17 10/10/17 06:59 18:59 Intake Total 1560 Balance 1560 - Medications Medications: Current Medications Apixaban (Eliquis) 5 mg PO BID [facility]ERNANDO PRN Reason: Protocol Last Admin: 10/09/17 17:22 Dose: 5 mg Benzonatate (Tessalon Perles) 100 mg PO Q8 [facility] Last Admin: 10/10/17 05:18 Dose: 100 mg Diphenhydramine HCl (Benadryl) 25 mg PO HS PRN PRN Reason: Insomnia Last Admin: 10/09/17 01:54 Dose: 25 mg Guaifenesin/Codeine Phosphate (Robitussin W/Codeine) 5 ml PO Q4H PRN PRN Reason: Cough and congestion Last Admin: 10/09/17 01:54 Dose: 5 ml Sodium Chloride (Sodium Chloride 0.9%) 1,000 mls @ 100 mls/hr IV .Q10H [facility] Last Admin: 08/07/18 17:09 Dose: 100 mls/hr Ondansetron HCl 16 mg/Dexamethasone 20 mg/Diphenhydramine HCl 25 mg/Famotidine 20 mg/ Sodium Chloride 65.5 mls @ 162 mls/hr IVPB ONCE ONE Stop: 10/10/17 14:24 Etoposide 150 mg/ Sodium (Chloride) 507.5 mls @ 253.75 mls/hr IV ONCE ONE Stop: 10/10/17 15:59 Levalbuterol HCl (Xopenex) 0.63 mg IH [id number] [facility] Last Admin: 10/10/17 08:25 Dose: 0.63 mg Megestrol Acetate (Megace) 200 mg PO DAILY [facility] Last Admin: 10/09/17 09:55 Dose: 200 mg Methylprednisolone (Solu-Medrol) 20 mg IVP DAILY [facility] Last Admin: 10/09/17 09:56 Dose: 20 mg Oxycodone HCl (Oxycodone Immediate Release Tab) 5 mg PO Q6H PRN PRN Reason: Pain, moderate (4-7) Last Admin: 10/09/17 21:34 Dose: 5 mg Pantoprazole Sodium (Protonix Ec Tab) 40 mg PO 0600 [facility] Last Admin: 10/10/17 05:18 Dose: 40 mg Polyethylene Glycol (Miralax) 17 gm PO BID [facility] Last Admin: 10/09/17 17:22 Dose: 17 gm Sotalol HCl (Betapace) 80 mg PO BID [facility] Last Admin: 10/09/17 17:22 Dose: 80 mg - Labs Labs: 10/10/17 06:00 10/10/17 06:00 PT 14.2 SECONDS (9.4-12.5) H 10/07/17 06:00 INR 1.23 10/07/17 06:00 APTT 23.8 Seconds (25.1-36.5) L 10/07/17 06:00 - Additional Findings Additional findings: - Constitutional Appears: Older Than Stated Age, Chronically Ill - Head Exam Head Exam: ATRAUMATIC, NORMOCEPHALIC - Eye Exam Eye Exam: EOMI, PERRL. absent: Conjunctival injection, Nystagmus, Scleral icterus Pupil Exam: NORMAL ACCOMODATION, PERRL. absent: Miosis, Mydriatic, Unequal - ENT Exam ENT Exam: Mucous Membranes Moist - Neck Exam Neck Exam: Full ROM - Respiratory Exam Respiratory Exam: Decreased Breath Sounds - Cardiovascular Exam Cardiovascular Exam: RRR, +S1, +S2. absent: Murmur right sided chest port in place - GI/Abdominal Exam GI & Abdominal Exam: Soft, Normal Bowel Sounds. absent: Guarding, Rigid, Tenderness, Mass, Organomegaly, Rebound - Extremities Exam Extremities Exam: Normal Inspection. absent: Calf Tenderness, Pedal Edema - Back Exam Back Exam: NORMAL INSPECTION - Neurological Exam Neurological Exam: Alert, Awake, Oriented x3 - Psychiatric Exam Psychiatric exam: Normal Affect, Normal Mood - Skin Skin Exam: Dry, Normal Color, Warm Assessment and Plan - Assessment and Plan (Free Text) Assessment: 76 year old male with PMH gastric ulcer, gastritis, admitted for RLL pneumonia, found to have small cell lung cancer with extensive mediastinal and hilar adenopathy and lytic lesions at T7, other vertebral bodies and liver mets, s/p radiation treatments with Dr Iqbal and l1 session of chemotherapy yesterday: 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 - c/w Megace - pathology report of hilar mass 10/02 showed small cell lung carcinoma - On eliquis 5 mg BID and sotalol for afib. as per cardio and primary team - Scheduled for 2nd chemo session out of 3 today: with carboplatin and etoposide - For home O2 use, consulted Physical therapy for evaluation/6 minute walk test. Encourage primary team to follow up results, reach out to Dr García for further recs. - Abd US showed increased echogenicity of liver parenchyma, 2 separate hypoechoic lesions. 2x1.3 cm in diameter. fatty infiltration - transminitis improving - Will give Neupogen 400 mg sq for 7 days, begin 1st dose 24 hours after 3rd dose of chemo. - monitor Case discussed with Dr Lomeli.
[2017-10-10] MEDS: MethylPREDNISolone 40 mg Vial IVP SCH (12:58)
[2017-10-10] MEDS: Megestrol Acetate 40 mg/ml Cup PO SCH (13:03)
[2017-10-10] MEDS: POLYETHYLENE GLYCOL 3350 17 GM/Dose PACKET PO SCH ×2 (13:03→18:26)
[2017-10-10] MEDS: guaiFENesin-Codeine 100-10mg/5ml Syrup (5 ml) UD PO SCH ×3 (13:04→21:24)
--- NOTE | 2017-10-10 13:16 | CP.PCM.DIS ---
<Kai Matos - Last Filed: 10/11/17 22:41> Provider - Provider Date of Admission: 09/26/17 07:28 Attending physician: Lenka Owens MD Primary care physician: NO FAMILY PROVIDER Consults: Hematology-Oncology doctor, Dr. Lomeli Radiation-Oncology, Dr. Iqbal Cardiology, Dr. Chirinos Infectious disease, Dr. Coker Gastroenterology, Dr. Bynum Pulmonology, Dr. Ricky Og Time Spent in preparation of Discharge (in minutes): 40 Diagnosis - Discharge Diagnosis (1) Small cell lung cancer Status: Acute Priority: High (2) Transaminitis Status: Acute Priority: High (3) Atrial fibrillation Status: Acute Priority: Medium (4) Pneumonia Status: Acute Priority: Medium (5) Constipation Status: Acute Priority: Low Hospital Course - Lab Results Lab Results: Most Recent Lab Values WBC 9.5 10^3/ul (4.5-11.0) D 10/10/17 06:00 RBC 4.38 10^6/uL (3.5-6.1) 10/10/17 06:00 Hgb 12.7 g/dL (14.0-18.0) L 10/10/17 06:00 Hct 37.5 % (42.0-52.0) L 10/10/17 06:00 MCV 85.6 fl (80.0-105.0) 10/10/17 06:00 MCH 29.0 pg (25.0-35.0) 10/10/17 06:00 MCHC 33.9 g/dl (31.0-37.0) 10/10/17 06:00 RDW 14.3 % (11.5-14.5) 10/10/17 06:00 Plt Count 299 10^3/uL (120.0-450.0) 10/10/17 06:00 MPV 9.8 fl (7.0-11.0) 10/10/17 06:00 Gran % 90.5 % (50.0-68.0) H 10/10/17 06:00 Lymph % (Auto) 5.0 % (22.0-35.0) L 10/10/17 06:00 Mitchell % (Auto) 4.2 % (1.0-6.0) 10/10/17 06:00 Eos % (Auto) 0.0 % (1.5-5.0) L 10/10/17 06:00 Baso % (Auto) 0.3 % (0.0-3.0) 10/10/17 06:00 Gran # 8.61 (1.4-6.5) H 10/10/17 06:00 Lymph # (Auto) 0.5 (1.2-3.4) L 10/10/17 06:00 Mitchell # (Auto) 0.4 (0.1-0.6) 10/10/17 06:00 Eos # (Auto) 0.0 (0.0-0.7) 10/10/17 06:00 Baso # (Auto) 0.03 K/mm3 (0.0-2.0) 10/10/17 06:00 Neutrophils % (Manual) 94 % (50.0-70.0) H 10/10/17 06:00 Band Neutrophils % 2 % (0-2) 10/10/17 06:00 Lymphocytes % (Manual) 2 % (22.0-35.0) L 10/10/17 06:00 Monocytes % (Manual) 1 % (1.0-6.0) 10/10/17 06:00 Metamyelocytes % 1 % 10/10/17 06:00 Platelet Evaluation Normal (NORMAL) 10/10/17 06:00 PT 14.2 SECONDS (9.4-12.5) H 10/07/17 06:00 INR 1.23 10/07/17 06:00 APTT 23.8 Seconds (25.1-36.5) L 10/07/17 06:00 D-Dimer, Quantitative 206 ng/mL (0-243) 09/24/17 23:55 pCO2 33 mm/Hg (35-45) L 09/26/17 02:15 pO2 106.0 mm/Hg (80-100) H 09/26/17 02:15 HCO3 23.5 mmol/L (21-28) 09/26/17 02:15 ABG pH 7.46 (7.35-7.45) H 09/26/17 02:15 ABG Total CO2 24.5 mmol.L (22-28) 09/26/17 02:15 ABG O2 Saturation 99.1 % (95-98) H 09/26/17 02:15 ABG O2 Content 18.9 ML/dl (15-23) 09/26/17 02:15 ABG Base Excess 0.3 mmol/L (-2.0-3.0) 09/26/17 02:15 ABG Hemoglobin 13.9 g/dL (11.7-17.4) 09/26/17 02:15 ABG Carboxyhemoglobin 1.5 % (0.5-1.5) 09/26/17 02:15 POC ABG HHb (Measured) 0.9 % (0-5) 09/26/17 02:15 ABG Methemoglobin 1.3 % (0.0-3.0) 09/26/17 02:15 ABG O2 Capacity 19.1 mL/dl (16-24) 09/26/17 02:15 Hgb O2 Saturation 96.3 % (95.0-98.0) 09/26/17 02:15 FiO2 28.0 % 09/26/17 02:15 Sodium 134 mmol/L (132-148) 10/10/17 06:00 Potassium 4.8 mmol/L (3.6-5.0) 10/10/17 06:00 Chloride 105 mmol/L (98-107) 10/10/17 06:00 Carbon Dioxide 23 mmol/L (21-33) 10/10/17 06:00 Anion Gap 11 (10-20) 10/10/17 06:00 BUN 18 mg/dL (7-21) 10/10/17 06:00 Creatinine 0.6 mg/dl (0.8-1.5) L 10/10/17 06:00 Est GFR ( Amer) > 60 10/10/17 06:00 Est GFR (Non-Af Amer) > 60 10/10/17 06:00 Random Glucose 187 mg/dL (70-110) H 10/10/17 06:00 Hemoglobin A1c 6.5 % (4.2-6.5) 09/25/17 06:20 Calcium 7.5 mg/dL (8.4-10.5) L 10/10/17 06:00 Phosphorus 2.6 mg/dL (2.5-4.5) 10/08/17 06:10 Magnesium 2.5 mg/dL (1.7-2.2) H 10/08/17 06:10 Total Bilirubin 0.7 mg/dL (0.2-1.3) 10/10/17 06:00 AST 60 U/L (17-59) H 10/10/17 06:00 ALT 187 U/L (7-56) H 10/10/17 06:00 Alkaline Phosphatase 88 U/L (38-126) 10/10/17 06:00 Lactate Dehydrogenase 570 U/L (333-699) 09/26/17 17:34 Total Creatine Kinase 48 U/L (35-230) 09/24/17 23:55 Troponin I < 0.01 ng/mL 09/28/17 07:15 NT-Pro-B Natriuret Pep 248 pg/mL (0-450) 09/26/17 02:00 Total Protein 5.5 g/dL (5.8-8.3) L 10/10/17 06:00 Albumin 2.6 g/dL (3.0-4.8) L 10/10/17 06:00 Globulin 2.9 gm/dL 10/10/17 06:00 Albumin/Globulin Ratio 0.9 (1.1-1.8) L 10/10/17 06:00 Triglycerides 69 mg/dL (35-160) 09/25/17 06:20 Cholesterol 116 mg/dL (130-200) L 09/25/17 06:20 LDL Cholesterol Direct 58 mg/dL (0-129) 09/25/17 06:20 HDL Cholesterol 40 mg/dL (29-60) 09/25/17 06:20 Carcinoembryonic Ag 144.0 ng/mL (0.0-3.0) H 09/26/17 16:02 Prostate Specific Ag 0.5 ng/mL (0.00-2.5) 09/26/17 11:30 Procalcitonin 8.80 NG/ML (0.19-0.49) H 09/24/17 23:55 Free T4 1.53 ng/dL (0.78-2.19) 09/25/17 07:35 TSH 3rd Generation 1.45 mIU/mL (0.46-4.68) 10/05/17 06:00 Urine Color Yellow (YELLOW) 09/24/17 00:50 Urine Appearance Clear (CLEAR) 09/24/17 00:50 Urine pH 6.5 (4.7-8.0) 09/24/17 00:50 Ur Specific [place] 1.010 (1.005-1.035) 09/24/17 00:50 Urine Protein Negative mg/dL (<30 mg/dL) 09/24/17 00:50 Urine Glucose (UA) Negative mg/dL (NEGATIVE) 09/24/17 00:50 Urine Ketones Negative mg/dL (NEGATIVE) 09/24/17 00:50 Urine Blood Trace-intact (NEGATIVE) H 09/24/17 00:50 Urine Nitrate Negative (NEGATIVE) 09/24/17 00:50 Urine Bilirubin Negative (NEGATIVE) 09/24/17 00:50 Urine Urobilinogen 0.2 E.U./dL (<1 E.U./dL) 09/24/17 00:50 Ur Leukocyte Esterase Negative [place]/uL (NEGATIVE) 09/24/17 00:50 Urine RBC 1 - 3 /hpf (0-2) 09/24/17 00:50 Urine WBC 0 - 2 /hpf (0-6) 09/24/17 00:50 Ur Epithelial Cells 0 - 2 /hpf (0-5) 09/24/17 00:50 Hepatitis A IgM Ab Negative (NEGATIVE) 10/05/17 06:30 Hep Bs Antigen Negative (NEGATIVE) 10/05/17 06:30 Hep B Core IgM Ab Negative (NEGATIVE) 10/05/17 06:30 Hepatitis C Antibody Negative (NEGATIVE) 10/05/17 06:30 Ur L.pneumophila Ag Negative (NEGATIVE) 09/25/17 03:30 Mycoplasma pneumon IgG 2.49 (<=0.90) H 09/25/17 05:00 Mycoplasma pneumon IgM 32 U/mL (<770) 09/25/17 05:00 TB Test Mitogen - Nil IU/mL (()) 09/25/17 05:00 TB Test (QFT) TNP 09/25/17 05:00 - Hospital Course Hospital Course: Kai Matos DO 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 He denies blood in his sputum. He states that he traveled to [place] for his son's wedding and [place] a [place]. He reports a recent 19lb wt loss, due to "food does not taste the same". Pt quit smoking about 5 years ago. Pt reports he has been using Tim's Vapor rub, but it has not helped very much. He states that he is SOB which is worse when he lays down and better when he sits up. He denies CP, fevers, headaches, abdominal pain, diarrhea, vomiting, melena, recent sickness and urinary complaints. He currently takes no medication. 12 point ROS obtained, pertinent positives and negatives added to HPI. Hospital Course: CT Chest 09/25/17 - performed shortly after admission, revealed extensive mediastinal and hilar adenopathy suspicious for underlying pulmonary malignancy. Lytic lesion at T7 consistent with metastatic disease. Scattered sclerotic lesions. Extensive right lower pneumonia. CT AP 09/25/17 - revealed scattered osteoblastic lesions in multiple vertebral bodies, posterior elements and ribs. Age-indeterminate fracture of the L4 superior endplate which may be acute and/ or pathologic. L4 compression fracture. CT Head 09/27/17 - No evidence of metastatic disease; no acute intracranial pathology MRI thoracic spine 09/27/17 - revealed same T7 metastatic processes however showed no evidence of epidural invasion and cord compression. Bone scan findings 10/27/17 - showed increased activity at the L4 level corresponding ot compression fracture seen on CT. Also revealed actiicty at T7 level corresponding to the lytic lesions seen on CT; multiple rib lesions are seen consistent w/ metastatic disease. Increased activity at the junction of the manubrium and sternum; this appears as a chronic bony fusion on CT. Lung CA: Initially there was some opposition to biopsy by family and patient however on , CT guided biopsy of mediastinal mass was performed. Patient had a subsequent pneumothorax from procedure and chest tube was placed and removed after 3 days; pneumothorax resolution was visualized on CXR morning after biopsy as well as after removal of chest tube. Patient was started on palliative radiation (10/02) while awaiting pathology report. Subsequently, path report yielded small cell lung CA. Port placed 10/08, and Patient began first round of carboplatin/ etoposide based chemo therapy from 10/09-10/11. Post obsructive pneumonia Pt. was initially started on IV antibiotics on admission and antibiotics were stopped 10/07 after roughly 10 total days. Patient was supplemented with xopenex nebulized, as well as a short course of oral steroids to assist w/ respiratory function. No signs/symtpoms of recurrence of pneumonia or systemic infection post antibiotic course. 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 Patient is rate controlled at this time w/ Sotalol. Transaminitis: Hospital course was also complicated with transaminitis. On 10/04 mild trans aminitis was noted, and subsequently worsened on 10/05. Hepatitis panel negative, Abdominal US revealed increased echogenicity of the liver w/ two separate hypoechoic lesions measuring 2cm and 1.3cm in diameter; other findings on US revealed 3cm cyst on the R kidney, and 3 separate cysts on L kidney ranging from 1.5-3cm in diameter. Hepatotoxic medications were switched or DC'd. Since aforementioned interventions performed; transaminitis has been slowly resolving. Transaminitis thought to be 2/2 decompensation in light of liver metastases, DILI with recent initiation of Ceftriaxone or possible compression of hepatic vasculature as a result of metastatic disease. Patient seen and examined morning prior to discharge/transfer to TCU. Only complaining of a slight dry cough; and some constipation. No other complaints voiced at this time/12 system ROS was otherwise negative for acute issues. Patient is stable for discharge/transfer to TCU at this time. - Date & Time of H&P Date of H&P: 09/25/13 Time of H&P: 04:14 Discharge Exam - Head Exam Head Exam: NORMOCEPHALIC - Eye Exam Eye Exam: EOMI, PERRL. absent: Scleral icterus - ENT Exam ENT Exam: Mucous Membranes Moist - Neck Exam Neck exam: Full Rom, Normal Inspection - Respiratory Exam Respiratory Exam: NORMAL BREATHING PATTERN. absent: Respiratory Distress Additional comments: RML/RLL crackles > L Some ronchorous sounds No wheezes Port site on right upper anterior chest wall; Dressing CDI; no erythema/ tenderness at site. - Cardiovascular Exam Cardiovascular Exam: REGULAR RHYTHM, RRR, +S1, +S2. absent: Systolic Murmur - GI/Abdominal Exam GI & Abdominal Exam: Normal Bowel Sounds, Soft, Unremarkable. absent: Tenderness - Extremities Exam Extremities exam: pedal pulses present (2+TP/DP BL) Additional comments: No LE edema; - Neurological Exam Neurological exam: CN II-XII Intact, Oriented x3 - Psychiatric Exam Psychiatric exam: Normal Affect, Normal Mood - Skin Skin Exam: Dry, Intact, Warm Discharge Plan - Follow Up Plan Condition: STABLE Disposition: TRANSF TO SNF Patient education suggested?: Yes Instructions: Pneumonia in Adults, Small Cell Lung Cancer, Community-Acquired Pneumonia in Adults, Lung Cancer (DC) Additional Instructions: Pt. is being transferred to TCU at this time with a diagnosis of pneumonia, small cell lung cancer, atrial fibrillation, and transaminitis. Patient has received 3/3 chemo treatments at this time; will continue further management in TCU. All inpatient medications will be continued in TCU. The following specialties are currently active in patient care Primary team - Lenka Chang Hematology-Oncology doctor, Dr. Lomeli Radiation-Oncology, Dr. Iqbal Cardiology, Dr. Chirinos Infectious disease, Dr. Coker Gastroenterology, Dr. Bynum Pulmonology, Dr. Ricky Og Referrals: FAMILY PROVIDER,NO [Primary Care Provider] - <Lenka Owens - Last Filed: 10/12/17 15:45> Provider - Provider Date of Admission: 09/26/17 07:28 Attending physician: Lenka Owens MD Primary care physician: SANDRA FAMILY PROVIDER Hospital Course - Lab Results Lab Results: Most Recent Lab Values WBC 8.6 10^3/ul (4.5-11.0) 10/11/17 05:40 RBC 4.02 10^6/uL (3.5-6.1) 10/11/17 05:40 Hgb 11.7 g/dL (14.0-18.0) L 10/11/17 05:40 Hct 34.4 % (42.0-52.0) L 10/11/17 05:40 MCV 85.6 fl (80.0-105.0) 10/11/17 05:40 MCH 29.1 pg (25.0-35.0) 10/11/17 05:40 MCHC 34.0 g/dl (31.0-37.0) 10/11/17 05:40 RDW 14.4 % (11.5-14.5) 10/11/17 05:40 Plt Count 247 10^3/uL (120.0-450.0) 10/11/17 05:40 MPV 9.6 fl (7.0-11.0) 10/11/17 05:40 Gran % 93.3 % (50.0-68.0) H 10/11/17 05:40 Lymph % (Auto) 4.4 % (22.0-35.0) L 10/11/17 05:40 Mitchell % (Auto) 2.1 % (1.0-6.0) 10/11/17 05:40 Eos % (Auto) 0.0 % (1.5-5.0) L 10/11/17 05:40 Baso % (Auto) 0.2 % (0.0-3.0) 10/11/17 05:40 Gran # 8.02 (1.4-6.5) H 10/11/17 05:40 Lymph # (Auto) 0.4 (1.2-3.4) L 10/11/17 05:40 Mitchell # (Auto) 0.2 (0.1-0.6) 10/11/17 05:40 Eos # (Auto) 0.0 (0.0-0.7) 10/11/17 05:40 Baso # (Auto) 0.02 K/mm3 (0.0-2.0) 10/11/17 05:40 Neutrophils % (Manual) 94 % (50.0-70.0) H 10/10/17 06:00 Band Neutrophils % 2 % (0-2) 10/10/17 06:00 Lymphocytes % (Manual) 2 % (22.0-35.0) L 10/10/17 06:00 Monocytes % (Manual) 1 % (1.0-6.0) 10/10/17 06:00 Metamyelocytes % 1 % 10/10/17 06:00 Platelet Evaluation Normal (NORMAL) 10/10/17 06:00 PT 14.2 SECONDS (9.4-12.5) H 10/07/17 06:00 INR 1.23 10/07/17 06:00 APTT 23.8 Seconds (25.1-36.5) L 10/07/17 06:00 D-Dimer, Quantitative 206 ng/mL (0-243) 09/24/17 23:55 pCO2 33 mm/Hg (35-45) L 09/26/17 02:15 pO2 106.0 mm/Hg (80-100) H 09/26/17 02:15 HCO3 23.5 mmol/L (21-28) 09/26/17 02:15 ABG pH 7.46 (7.35-7.45) H 09/26/17 02:15 ABG Total CO2 24.5 mmol.L (22-28) 09/26/17 02:15 ABG O2 Saturation 99.1 % (95-98) H 09/26/17 02:15 ABG O2 Content 18.9 ML/dl (15-23) 09/26/17 02:15 ABG Base Excess 0.3 mmol/L (-2.0-3.0) 09/26/17 02:15 ABG Hemoglobin 13.9 g/dL (11.7-17.4) 09/26/17 02:15 ABG Carboxyhemoglobin 1.5 % (0.5-1.5) 09/26/17 02:15 POC ABG HHb (Measured) 0.9 % (0-5) 09/26/17 02:15 ABG Methemoglobin 1.3 % (0.0-3.0) 09/26/17 02:15 ABG O2 Capacity 19.1 mL/dl (16-24) 09/26/17 02:15 Hgb O2 Saturation 96.3 % (95.0-98.0) 09/26/17 02:15 FiO2 28.0 % 09/26/17 02:15 Sodium 134 mmol/L (132-148) 10/11/17 05:40 Potassium 4.9 mmol/L (3.6-5.0) 10/11/17 05:40 Chloride 106 mmol/L (98-107) 10/11/17 05:40 Carbon Dioxide 22 mmol/L (21-33) 10/11/17 05:40 Anion Gap 11 (10-20) 10/11/17 05:40 BUN 18 mg/dL (7-21) 10/11/17 05:40 Creatinine 0.6 mg/dl (0.8-1.5) L 10/11/17 05:40 Est GFR ( Amer) > 60 10/11/17 05:40 Est GFR (Non-Af Amer) > 60 10/11/17 05:40 Random Glucose 183 mg/dL (70-110) H 10/11/17 05:40 Hemoglobin A1c 6.5 % (4.2-6.5) 09/25/17 06:20 Calcium 7.8 mg/dL (8.4-10.5) L 10/11/17 05:40 Phosphorus 2.6 mg/dL (2.5-4.5) 10/08/17 06:10 Magnesium 2.5 mg/dL (1.7-2.2) H 10/08/17 06:10 Total Bilirubin 0.6 mg/dL (0.2-1.3) 10/11/17 05:40 AST 62 U/L (17-59) H 10/11/17 05:40 ALT 179 U/L (7-56) H 10/11/17 05:40 Alkaline Phosphatase 78 U/L (38-126) 10/11/17 05:40 Lactate Dehydrogenase 570 U/L (333-699) 09/26/17 17:34 Total Creatine Kinase 48 U/L (35-230) 09/24/17 23:55 Troponin I < 0.01 ng/mL 09/28/17 07:15 NT-Pro-B Natriuret Pep 248 pg/mL (0-450) 09/26/17 02:00 Total Protein 5.2 g/dL (5.8-8.3) L 10/11/17 05:40 Albumin 2.5 g/dL (3.0-4.8) L 10/11/17 05:40 Globulin 2.7 gm/dL 10/11/17 05:40 Albumin/Globulin Ratio 0.9 (1.1-1.8) L 10/11/17 05:40 Triglycerides 69 mg/dL (35-160) 09/25/17 06:20 Cholesterol 116 mg/dL (130-200) L 09/25/17 06:20 LDL Cholesterol Direct 58 mg/dL (0-129) 09/25/17 06:20 HDL Cholesterol 40 mg/dL (29-60) 09/25/17 06:20 Carcinoembryonic Ag 144.0 ng/mL (0.0-3.0) H 09/26/17 16:02 Prostate Specific Ag 0.5 ng/mL (0.00-2.5) 09/26/17 11:30 Procalcitonin 8.80 NG/ML (0.19-0.49) H 09/24/17 23:55 Free T4 1.53 ng/dL (0.78-2.19) 09/25/17 07:35 TSH 3rd Generation 1.45 mIU/mL (0.46-4.68) 10/05/17 06:00 Urine Color Yellow (YELLOW) 09/24/17 00:50 Urine Appearance Clear (CLEAR) 09/24/17 00:50 Urine pH 6.5 (4.7-8.0) 09/24/17 00:50 Ur Specific [place] 1.010 (1.005-1.035) 09/24/17 00:50 Urine Protein Negative mg/dL (<30 mg/dL) 09/24/17 00:50 Urine Glucose (UA) Negative mg/dL (NEGATIVE) 09/24/17 00:50 Urine Ketones Negative mg/dL (NEGATIVE) 09/24/17 00:50 Urine Blood Trace-intact (NEGATIVE) H 09/24/17 00:50 Urine Nitrate Negative (NEGATIVE) 09/24/17 00:50 Urine Bilirubin Negative (NEGATIVE) 09/24/17 00:50 Urine Urobilinogen 0.2 E.U./dL (<1 E.U./dL) 09/24/17 00:50 Ur Leukocyte Esterase Negative [place]/uL (NEGATIVE) 09/24/17 00:50 Urine RBC 1 - 3 /hpf (0-2) 09/24/17 00:50 Urine WBC 0 - 2 /hpf (0-6) 09/24/17 00:50 Ur Epithelial Cells 0 - 2 /hpf (0-5) 09/24/17 00:50 Hepatitis A IgM Ab Negative (NEGATIVE) 10/05/17 06:30 Hep Bs Antigen Negative (NEGATIVE) 10/05/17 06:30 Hep B Core IgM Ab Negative (NEGATIVE) 10/05/17 06:30 Hepatitis C Antibody Negative (NEGATIVE) 10/05/17 06:30 Ur L.pneumophila Ag Negative (NEGATIVE) 09/25/17 03:30 Mycoplasma pneumon IgG 2.49 (<=0.90) H 09/25/17 05:00 Mycoplasma pneumon IgM 32 U/mL (<770) 09/25/17 05:00 TB Test Mitogen - Nil IU/mL (()) 09/25/17 05:00 TB Test (QFT) TNP 09/25/17 05:00 Attending/Attestation - Attestation I have personally seen and examined this patient.: Yes I have fully participated in the care of the patient.: Yes I have reviewed all pertinent clinical information, including history, physical exam and plan: Yes Notes (Text): 10/12/17 15:32 Medical record note made by the resident after discussion with my direction and input after the patient was personally seen and examined by me. I have reviewed the chart and agree that the record accurately reflects by personal performance of the history, physical exam, data review, and medical decision-making, in the course for the patient. I have also personally directed the plan of care. 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 CT chest done showed RLL Pneumonia , likely post obstructive, diffuse moderate mediastinal MYA, and numerous extra-pulmonary lesions suggestive of metastatic process.CT abd/pelvis revealed lesion in liver and osteolytic lesion in thoracic and lumbar spine possible metastasis. Pt also had rapid response on for new-onset atrial fibrillation with rapid ventricular response. Patient is SP lung biopsy. Post biopsy had pneumothorax but now chest tube is removed. Pathology showed small cell carcinoma. Started on radiation therapy and chemotherapy.Patient has been restarted on anticoagulation with Apixiban.Hemoglobin is stable.LFT are coming down..AF rate is controlled. Patient will be discharged to TCU for rehabilitation. Management plan was discussed in detail with patient. Education was provided.
--- NOTE | 2017-10-10 13:28 | PN ---
Copied To: Jeremiah Chirinos MD Attending MD: Jeremiah Chirinos MD DATE: 10/10/2017 SUBJECTIVE: The patient just returned from radiation therapy. PHYSICAL EXAMINATION: VITAL SIGNS: Blood pressure is 95/58, heart rates in the 70s. NECK: Negative JVD. LUNGS: Without rales. HEART: S1 and S2. EXTREMITIES: Without edema. LABORATORY DATA: Hemoglobin is 12.7. Chemistries, BUN and creatinine unremarkable. Glucose is 187. IMPRESSION: 1. Metastatic cancer. 2. Status post pneumothorax. 3. History of atrial fibrillation. 4. Weakness. PLAN: Given these findings, I have discussed with the patient about risks, benefits of low-dose anticoagulation for his chronic atrial fibrillation. Side effects including bleeding history has been discussed with the patient and family in detail. Jeremiah Chirinos MD : 10/10/2017 13:13:26
[2017-10-10] MEDS ORDERED: Ondansetron 16 MG, Dexamethasone 20 MG, DiphenhydrAMINE 25 MG, Famotidine 20 MG in Sodi... IVPB ONE (14:00)
[2017-10-10] MEDS ORDERED: Sodium Chloride 0.9% 1,000 ML IV SCH (14:00)
[2017-10-10] MEDS ORDERED: Sodium Chloride 0.9% 100 ML IV SCH (14:00)
--- NOTE | 2017-10-10 14:13 | CP.PCM.PN ---
Subjective - Date & Time of Evaluation Date of Evaluation: 10/10/17 Time of Evaluation: 13:30 - Subjective Subjective: Infectious Disease Follow Up: October 10, 2017 76 yo male with presentation of SOB and cough productive of sputum. The patient has had symptoms for the past 3 weeks. He was recently in [place] for his son's wedding. Patient states that "food does not taste the same". He has lost [address] scan showing extensive right lower lobe pneumonia but what is more concerning is the extensive mediastinal and hilar adenopathy with lytic lesion at T7. The patient has been started on IV Rocephin and Azithromycin for antibiotic care. No WBC. Procalcitonin of 8.8 at this time. New onset Atrial Fibrillation two nights ago... transferred to telemetry. The family and the patient have been refusing biopsy at this time. Emphasized to the patient and present family members (daughter and son-in-law) importance of the biopsy in determining diagnosis and type of treatment options available for the patient. Patient states that he is not sleeping well in the hospital. Noted the patient with Atrial fibrillation last night. Taken for lung biopsy this week. The patient with hemoptysis. Seen by radiation oncology Dr. Iqbal for palliative radiation evaluation. Receiving radiation. Noted transaminitis... this has been downtrending the last few days. Hemoptysis improved. Pain in chest/lungs subsiding. Appetite still weak. 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 For transfer to TCU. Objective - Vital Signs/Intake and Output Vital Signs (last 24 hours): Temp Pulse Resp BP Pulse Ox 98.3 F 71 19 108/58 L 91 L 10/10/17 07:56 10/10/17 12:59 10/10/17 07:56 10/10/17 12:59 10/10/17 07:56 Intake and Output: 10/10/17 10/10/17 06:59 18:59 Intake Total 1560 Balance 1560 - Medications Medications: Current Medications Apixaban (Eliquis) 5 mg PO BID [facility] PRN Reason: Protocol Last Admin: 10/10/17 12:58 Dose: 5 mg Benzonatate (Tessalon Perles) 100 mg PO Q8 [facility] Last Admin: 10/10/17 05:18 Dose: 100 mg Diphenhydramine HCl (Benadryl) 25 mg PO HS PRN PRN Reason: Insomnia Last Admin: 10/09/17 01:54 Dose: 25 mg Guaifenesin/Codeine Phosphate (Robitussin W/Codeine) 5 ml PO Q4H [facility] Last Admin: 10/10/17 13:04 Dose: 5 ml Sodium Chloride (Sodium Chloride 0.9%) 1,000 mls @ 100 mls/hr IV .Q10H [facility] Last Admin: 10/09/17 17:09 Dose: 100 mls/hr Ondansetron HCl 16 mg/Dexamethasone 20 mg/Diphenhydramine HCl 25 mg/Famotidine 20 mg/ Sodium Chloride 65.5 mls @ 162 mls/hr IVPB ONCE ONE Stop: 10/10/17 14:24 Etoposide 150 mg/ Sodium (Chloride) 507.5 mls @ 253.75 mls/hr IV ONCE ONE Stop: 10/10/17 15:59 Levalbuterol HCl (Xopenex) 0.63 mg IH [id number] [facility] Last Admin: 10/10/17 13:48 Dose: 0.63 mg Megestrol Acetate (Megace) 200 mg PO DAILY [facility] Last Admin: 10/10/17 13:03 Dose: 200 mg Oxycodone HCl (Oxycodone Immediate Release Tab) 5 mg PO Q6H PRN PRN Reason: Pain, moderate (4-7) Last Admin: 10/09/17 21:34 Dose: 5 mg Pantoprazole Sodium (Protonix Ec Tab) 40 mg PO 0600 [facility] Last Admin: 10/10/17 05:18 Dose: 40 mg Polyethylene Glycol (Miralax) 17 gm PO BID [facility] Last Admin: 10/10/17 13:03 Dose: 17 gm Sotalol HCl (Betapace) 80 mg PO BID [facility] Last Admin: 10/10/17 12:59 Dose: 80 mg - Labs Labs: 10/10/17 06:00 10/10/17 06:00 PT 14.2 SECONDS (9.4-12.5) H 10/07/17 06:00 INR 1.23 10/07/17 06:00 APTT 23.8 Seconds (25.1-36.5) L 10/07/17 06:00 - Constitutional Appears: Non-toxic, No Acute Distress, Chronically Ill - Head Exam Head Exam: ATRAUMATIC, NORMOCEPHALIC - Eye Exam Eye Exam: EOMI, PERRL Pupil Exam: NORMAL ACCOMODATION, PERRL - ENT Exam ENT Exam: Mucous Membranes Moist, Normal External Ear Exam, TM's Normal Bilaterally - Neck Exam Neck Exam: Full ROM, Normal Inspection - Respiratory Exam Respiratory Exam: Decreased Breath Sounds, Clear to Ausculation Bilateral, NORMAL BREATHING PATTERN. absent: Rales, Rhonchi, Wheezes - Cardiovascular Exam Cardiovascular Exam: REGULAR RHYTHM, RRR, +S1, +S2 - GI/Abdominal Exam GI & Abdominal Exam: Soft, Normal Bowel Sounds. absent: Distended, Tenderness - Extremities Exam Extremities Exam: Full ROM, Normal Inspection - Neurological Exam Neurological Exam: Alert, Awake, CN II-XII Intact, Oriented x3 - Psychiatric Exam Psychiatric exam: Normal Affect, Normal Mood - Skin Skin Exam: Intact, Normal Color Assessment and Plan - Assessment and Plan (Free Text) Assessment: 76 yo male with large amount of weight loss (19 lbs) and multiple CT lung findings. The patient started on Ceftriaxone and Azithromycin. Must rule out malignancy. Check for Tuberculosis. Check PPD and Quantiferon. Consider surgery or IR evaluation for biopsy of suspicious areas. Supportive care. May need Heme/Onc evaluation as well. Check ESR and C-Reactive Protein. The most likely diagnosis given the current symptoms is malignancy. Given overall picture, Tuberculosis is a much less likely diagnosis. Malignancy is extremely likely. Overall terminal manager prognosis is very poor. Discussed with family and the patient importance of a biopsy in determining diagnosis and available care/ treatment options. Rocephin on hold due to sudden transaminitis. Taken for lung/liver biopsy. Pathology pending. Patient has chest tube in place for pneumothorax from procedure. Hemoptysis improving. For Port-A-Cath on Sunday and possible chemotherapy. Pathology showing small cell carcinoma. Port-A-Cath placed. Chemotherapy started on Sunday. For transfer to TCU. Thank you for allowing me to participate in the care of the patient, we will follow with you.
--- NOTE | 2017-10-10 16:43 | CP.PCM.PN ---
<Kai Matos - Last Filed: 10/10/17 16:13> Subjective - Date & Time of Evaluation Date of Evaluation: 10/10/17 Time of Evaluation: 16:13 - Subjective Subjective: Kai Matos DO PGY1 Internal Medicine Entry Level Programmer Patient seen and examined today at bedside; he's voicing no complaints of hemoptysis today; no SOB, denies chest pain. Tolerated first round of chemotherapy yesterday. Has okay appetite; no abdominal pain N/V. Objective - Vital Signs/Intake and Output Vital Signs (last 24 hours): Temp Pulse Resp BP Pulse Ox 98.3 F 71 19 108/58 L 91 L 10/10/17 07:56 10/10/17 12:59 10/10/17 07:56 10/10/17 12:59 10/10/17 07:56 Intake and Output: 10/10/17 10/10/17 06:59 18:59 Intake Total 1560 Balance 1560 - Medications Medications: Current Medications Apixaban (Eliquis) 5 mg PO BID [facility] PRN Reason: Protocol Last Admin: 10/10/17 12:58 Dose: 5 mg Benzonatate (Tessalon Perles) 100 mg PO Q8 [facility] Last Admin: 10/10/17 05:18 Dose: 100 mg Diphenhydramine HCl (Benadryl) 25 mg PO HS PRN PRN Reason: Insomnia Last Admin: 10/09/17 01:54 Dose: 25 mg Guaifenesin/Codeine Phosphate (Robitussin W/Codeine) 5 ml PO Q4H [facility] Last Admin: 10/10/17 13:04 Dose: 5 ml Sodium Chloride (Sodium Chloride 0.9%) 1,000 mls @ 100 mls/hr IV .Q10H [facility] Last Admin: 10/09/17 17:09 Dose: 100 mls/hr Levalbuterol HCl (Xopenex) 0.63 mg IH [id number] [facility] Last Admin: 10/10/17 13:48 Dose: 0.63 mg Megestrol Acetate (Megace) 200 mg PO DAILY [facility] Last Admin: 10/10/17 13:03 Dose: 200 mg Oxycodone HCl (Oxycodone Immediate Release Tab) 5 mg PO Q6H PRN PRN Reason: Pain, moderate (4-7) Last Admin: 10/09/17 21:34 Dose: 5 mg Pantoprazole Sodium (Protonix Ec Tab) 40 mg PO 0600 [facility] Last Admin: 10/10/17 05:18 Dose: 40 mg Polyethylene Glycol (Miralax) 17 gm PO BID [facility] Last Admin: 10/10/17 13:03 Dose: 17 gm Sotalol HCl (Betapace) 80 mg PO BID [facility] Last Admin: 10/10/17 12:59 Dose: 80 mg - Labs Labs: 10/10/17 06:00 10/10/17 06:00 PT 14.2 SECONDS (9.4-12.5) H 10/07/17 06:00 INR 1.23 10/07/17 06:00 APTT 23.8 Seconds (25.1-36.5) L 10/07/17 06:00 Physical Exam - Constitutional Appears: Well, Cachectic - Head Exam Head Exam: ATRAUMATIC, NORMAL INSPECTION, NORMOCEPHALIC - Eye Exam Eye Exam: EOMI, PERRL. absent: Scleral icterus - ENT Exam ENT Exam: Mucous Membranes Moist - Respiratory Exam Respiratory Exam: Breathing comfortably; some inspiratory stridor appreciated; more prominent in R sided lung chacon - Cardiovascular Exam Cardiovascular Exam: RRR, +S1, +S2 - GI/Abdominal Exam GI & Abdominal Exam: Soft. 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 Patient was biopsied on 10/02 and is currently receiving palliative radiation at this time. Hospital course was complicated by new onset Afib which is rate controlled w/ sotalol, and anticoagulated w/ elqiuis. Started on first round of chemoradiation yesterday. Plan: Pulmonary Malignancy s/p CT guided biopsy CT chest 09/25: extensive mediastinal and hilar lymphadenopathy suspicious for underlying pulmonary malignancy. Lytic lesion at T7 consistent with metastatic disease. Scattered sclerotic lesions. Extensive R lower lobe pneumonia. Ct abd/ pelvis 09/25: scattered osteoblastic lesions in multiple vertebral bodies, posterior elements and ribs. Age-indeterminate fracture of L4 superior end-plate , may be acute and/or pathologic. Low density lesion in anterolateral liver, metastasis suspected. Ct head 09/27: no evidence of metastatic disease, no acute intracranial findings Bone scan 09/26: findings consistent with bony metastatic disease Patient underwent CT guided biopsy of lung mass on 10/01 complicated by pneumothorax now resolved; chest tube was placed due to pneumothorax and has now been removed Patient hemoptysis improving Unofficial pathology of hilar mass - Small Cell Ca; Official report pending Radiation as per Dr. Iqbal Patient has received first dose of chemo therapy yesterday. Cisplatin based therapy occurring Q28 days. Consults: ID Consulted (Dr. Coker), recs appreciated Pulm consulted (Dr. García), recs appreciated - c/w Xopenex Q6H , Solumedrol 20mg Q12H Heme/onc consulted (Dr. Lomeli), recs appreciated -c/w megace, pallative radiation as per IR, port placement 10/08, x1 treatment ChemoRad tentative on 10/09 , Discussed with pathologist Dr Cage regarding patient's biopsy, like small cell lung carcinoma, will await for official pathology reports: Radiation onc consulted (Dr. Iqbal), recs appreciated - Patient receiving pallative radiation Transaminitis - Resolving New onset elevated transaminases in hepatocellular pattern Hepatotoxic meds discontinued Ceftriaxone discontinued 10/05/[address] Bynum, recs appreciated * Differential include decompensation in light of liver metastases, DILI with recent initiation of Ceftriaxone or possible compression of hepatic vasculature as a result of metastatic disease * Patient refusing MRI at this time given claustrophobia and previous negative experience Post-Obstructive Pneumonia -Resolving CXR on admission 09/25: extensive alveolar infiltrate in R lower lobe consistent with pneumonia Afebrile w/o WBC elevation; no complaints of cough C/w Solumderol 20 QD C/w Xopenex as per pulm reccs C/w Robitussin+Codeine PRN and Tessalon perles PRN C/w bronchodialator Xopenex as per pulm reccs ID consulted (Dr. Coker), recs appreciated Pulm consulted (Dr. García), recs appreciated New-onset atrial fibrillation with rapid ventricular response Rapid response called on 09/26/17; pt had additional episode overnight that converted back to normal sinus rhythm spontaneously Pt. off tele Continue Sotalol as per cardiology Start anticoagulation w/ eliquis 5mg BID Cardio consulted (Dr. Chirinos), recs appreciated Electrolyte abnormalities HyperK/ Hypophos / Hyper mag Continue following levels; treat/replete as necessary Treat hypophos w/ sodium phos as to not upset other electrolyte balances Nephrology (Dr Barrera) has signed off DVT/GI ppx: SCD /Protonix Disposition plan: Pt. is found to be candidate for TCU placement; Patient to be transferred when 3/3 chemo therapy dose is completed; suspect transfer to occur Wednesday 10/11. Patient seen, examined, and case discussed w/ attending physician Dr. Graciela Matos DO PGY1 Internal Medicine Entry Level Programmer - Pager [phone] <Lenka Owens - Last Filed: 10/11/17 16:24> Objective - Vital Signs/Intake and Output Vital Signs (last 24 hours): Temp Pulse Resp BP Pulse Ox 97.9 F 67 20 106/60 98 10/11/17 16:14 10/11/17 16:14 10/11/17 16:14 10/11/17 16:14 10/11/17 16:14 Intake and Output: 10/11/17 10/11/17 06:59 18:59 Intake Total 1800 Output Total 1150 Balance 650 - Medications Medications: Current Medications Apixaban (Eliquis) 5 mg PO BID [facility] PRN Reason: Protocol Last Admin: 10/11/17 09:49 Dose: 5 mg Benzonatate (Tessalon Perles) 100 mg PO Q8 [facility] Last Admin: 10/11/17 13:26 Dose: 100 mg Diphenhydramine HCl (Benadryl) 25 mg PO HS PRN PRN Reason: Insomnia Last Admin: 10/11/17 01:44 Dose: 25 mg Guaifenesin/Codeine Phosphate (Robitussin W/Codeine) 5 ml PO Q4H [facility] Last Admin: 10/11/17 13:25 Dose: 5 ml Sodium Chloride (Sodium Chloride 0.9%) 1,000 mls @ 100 mls/hr IV .Q10H [facility] Last Admin: 10/11/17 09:53 Dose: 100 mls/hr Etoposide 150 mg/ Sodium (Chloride) 507.5 mls @ 253.75 mls/hr IV ONCE ONE Stop: 10/11/17 16:59 Last Admin: 10/11/17 14:48 Dose: 253.75 mls/hr Levalbuterol HCl (Xopenex) 0.63 mg IH [id number] [facility] Last Admin: 10/11/17 13:39 Dose: 0.63 mg Megestrol Acetate (Megace) 200 mg PO DAILY [facility] Last Admin: 10/11/17 09:50 Dose: 200 mg Oxycodone HCl (Oxycodone Immediate Release Tab) 5 mg PO Q6H PRN PRN Reason: Pain, moderate (4-7) Last Admin: 10/09/17 21:34 Dose: 5 mg Pantoprazole Sodium (Protonix Ec Tab) 40 mg PO 0600 [facility] Last Admin: 10/11/17 05:13 Dose: 40 mg Polyethylene Glycol (Miralax) 17 gm PO BID [facility] Last Admin: 10/11/17 09:50 Dose: 17 gm Sotalol HCl (Betapace) 80 mg PO BID [facility] Last Admin: 10/11/17 09:49 Dose: 80 mg - Labs Labs: 10/11/17 05:40 10/11/17 05:40 PT 14.2 SECONDS (9.4-12.5) H 10/07/17 06:00 INR 1.23 10/07/17 06:00 APTT 23.8 Seconds (25.1-36.5) L 10/07/17 06:00 Attending/Attestation - Attestation I have personally seen and examined this patient.: Yes I have fully participated in the care of the patient.: Yes I have reviewed all pertinent clinical information, including history, physical exam and plan: Yes Notes (Text): 10/11/17 16:22 Medical record note made by the resident after discussion with my direction and input after the patient was personally seen and examined by me. I have reviewed the chart and agree that the record accurately reflects by personal performance of the history, physical exam, data review, and medical decision-making, in the course for the patient. I have also personally directed the plan of care. 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 Ct Chest done shows RLL Pneumonia , likely post obstructive, diffuse moderate mediastinal MYA , and numerous extra-pulmonary lesions suggestive of metastatic process.CT abd/ pelvis revealed lesion in liver and osteolytic lesion in thoracic and lumbar spine possible metastasis. Pt also had rapid response on 09/26/17 for new-onset atrial fibrillation with rapid ventricular response Patient is SP lung biopsy. Post biopsy had pneumothorax but now chest tube is removed. Pathology showed small cell ca. Started on radiation therapy and chemotherapy.Patient has been restarted on anticoagulation with Apixiban.Hemoglobin is stable.LFT are coming down.
[2017-10-10 16:56] VITALS: RESP 20
--- NOTE | 2017-10-10 18:48 | PN ---
Copied To: Lenka García MD Attending MD: Lenka García MD DATE: 10/10/2017 PULMONARY PROGRESS NOTE REFERRING PHYSICIAN: Dr. Larkin. SUBJECTIVE: He is sitting side of the bed, having lunch. Family is at bedside. Night was unremarkable. Cough is better. No nausea, no vomiting, no diarrhea. No leg pain or leg swelling. Receiving radiation therapy. OBJECTIVE: GENERAL: In no acute distress. VITAL SIGNS: Temperature is 98, heart rate 74, respiratory rate is 18, blood pressure 108/58, and pulse ox 91% on 2 L nasal cannula. HEENT: Moist mucous membrane. Crowded airway. NECK: Supple. No JVD. LUNGS: Few scattered rhonchi, overall fair airflow. HEART: S1 and S2. ABDOMEN: Soft, nontender. No organomegaly. EXTREMITIES: There is no edema. NEUROLOGIC: Awake and alert. Follows simple commands. MEDICATIONS: He is on Benadryl 25 mg at bedtime p.r.n., sotalol 80 mg twice a day, Eliquis 5 mg twice a day. He is getting etoposide 150 mg IV, Megace 200 mg daily, MiraLax 17 g twice a day. He is also getting oxycodone 5 mg every 6 hours p.r.n., Protonix 40 mg daily, Robitussin with codeine p.r.n. basis, Solu-Medrol 20 mg daily, Tessalon Perles 100 mg every 8 hours, Xopenex inhaled every 6 hours. LABORATORY DATA: Shows hemoglobin 12.7, hematocrit 37.5, WBC 9.5, and platelet count is 299. Sodium 134, potassium 4.8, chloride 105, bicarbonate 23. BUN 18, creatinine is 0.6. Glucose is 187. Calcium is 7.5. AST 60, ALT 187, alkaline phosphatase is 88. Albumin is 2.6. Microbiology: Blood culture and sputum culture, there is no growth. IMPRESSION AND PLAN: Unresectable lung cancer status post biopsy, status post pneumothorax, hemoptysis which is resolved, chronic obstructive lung disease. Pulmonary point of view, he is doing pretty well. Getting radiation therapies, also being started on chemotherapy. Spoke to the patient's family at bedside. All the questions answered. We will discontinue Solu-Medrol and continue inhaled bronchodilator. Gastric prophylaxis. Fall precaution. Continue supplemental oxygen. Thank you and we will follow with you. Lenka García MD
--- NOTE | 2017-10-10 19:54 | PN ---
Copied To: Antonia Barrera MD Attending MD: Antonia Barrera MD. DATE: 10/10/2017 SUBJECTIVE: The patient is seen lying in bed. Family is at bedside. He is awake, he is alert. He denies any nausea. He denies any pain. PHYSICAL EXAMINATION: GENERAL: Elderly male lying in bed. VITAL SIGNS: Blood pressure 108/58, heart rate 71, respiratory rate 19, temperature 98. HEENT: Normocephalic, atraumatic, positive pallor. NECK: Supple, no JVD. LUNGS: Bilateral equal air entry, bilateral equal expansion. CARDIAC: S1 and S2, regular rate and rhythm, no murmur, no rub. ABDOMEN: Soft, nondistended, nontender, bowel sounds present. EXTREMITIES: No lower extremity edema. INTAKE AND OUTPUT: 3110/100. LABORATORY DATA: WBC 9.5, hemoglobin 12.7, hematocrit 37.5, platelets 299. Sodium 134, potassium 4.8, chloride 105, CO2 of 23, BUN 18, creatinine 0.6, glucose 187, calcium 7.5. AST 60, ALT 187, albumin 2.6. MEDICATIONS: Benadryl, sotalol, Eliquis, Megace, MiraLax, oxycodone, Protonix, and guaifenesin. ASSESSMENT: 1. Stage IV lung cancer with bone metastasis. 2. Resolved hyperkalemia. 3. Resolved hypophosphatemia. PLAN: The patient is stable from renal standpoint, we will discontinue followup at this time. Please reconsult as needed. Antonia Barrera MD
[2017-10-11] MEDS: Levalbuterol 0.63 MG/3 ML Inhal Soln UD IH SCH ×4 (01:07→19:48)
[2017-10-11] MEDS: guaiFENesin-Codeine 100-10mg/5ml Syrup (5 ml) UD PO SCH ×5 (02:35→17:14)
[2017-10-11] MEDS: Pantoprazole 40 mg EC Tab PO SCH (05:13)
[2017-10-11 05:52] LABS: BASO # 0.02 K/mm3 (0.0-2.0); BASO % 0.2 % (0.0-3.0); GRAN # 8.02 (1.4-6.5); GRAN % 93.3 % (50.0-68.0); HEMOGLOBIN 11.7 g/dL (14.0-18.0); LYMPH # 0.4 (1.2-3.4); LYMPH % 4.4 % (22.0-35.0); MEAN CELL VOLUME 85.6 fl (80.0-105.0); MEAN CORPUSCULAR HEMOGLOBIN 29.1 pg (25.0-35.0); MEAN PLATELET VOLUME 9.6 fl (7.0-11.0); MONO # 0.2 (0.1-0.6); MONO % 2.1 % (1.0-6.0); RBC 4.02 10^6/uL (3.5-6.1); RED CELL DISTRIBUTION WIDTH 14.4 % (11.5-14.5); WHITE BLOOD COUNT 8.6 10^3/ul (4.5-11.0)
[2017-10-11 06:03] LABS: ALB/GLOB RATIO 0.9 (1.1-1.8); ALBUMIN 2.5 g/dL (3.0-4.8); ALT/SGPT 179 U/L (7-56); AST/SGOT 62 U/L (17-59); BLOOD UREA NITROGEN 18 mg/dL (7-21); CALCIUM 7.8 mg/dL (8.4-10.5); GFR AFRICAN-AMERICAN > 60; GFR NON-AFRICAN AMERICAN > 60
[2017-10-11] MEDS: POLYETHYLENE GLYCOL 3350 17 GM/Dose PACKET PO SCH ×2 (09:50→17:13)
[2017-10-11] MEDS: Megestrol Acetate 40 mg/ml Cup PO SCH (09:50)
[2017-10-11] MEDS: Sodium Chloride 0.9% 1,000 ML IV SCH (09:53)
--- NOTE | 2017-10-11 12:27 | CP.PCM.PN ---
Subjective - Date & Time of Evaluation Date of Evaluation: 10/11/17 Time of Evaluation: 12:26 - Subjective Subjective: Sobeida Dukes, PGY2, Heme-Onc Progress Note for Dr Lomeli: This is a 76 year old male with PMH gastric ulcer, gastritis, admitted for pneumonia, found to have small cell lung carcinoma with extensive mediastinal and hilar adenopathy and lytic lesions at T7, other vertebral bodies and liver mets, s/p radiation treatments and 2 chemotherapy sessions. Patient to receive radiation session and last dose of chemotherapy session today. Patient seen and examined at bedside. No acute events overnight. Patient reports that his cough has improved. Denies any mouth sores. Reports a BM yesterday. Reports that his appetite is better. Denies fevers, chills, nausea, vomiting, abdominal pain, leg swelling, urinary complaints, easy bruising. Objective - Vital Signs/Intake and Output Vital Signs (last 24 hours): Temp Pulse Resp BP Pulse Ox 97.5 F L 65 20 116/62 97 10/11/17 06:00 10/11/17 09:49 10/11/17 06:00 10/11/17 09:49 10/11/17 06:00 Intake and Output: 10/11/17 10/11/17 06:59 18:59 Intake Total 1800 Output Total 1150 Balance 650 - Medications Medications: Current Medications Apixaban (Eliquis) 5 mg PO BID [facility]O PRN Reason: Protocol Last Admin: 10/11/17 09:49 Dose: 5 mg Benzonatate (Tessalon Perles) 100 mg PO Q8 FERNANDO Last Admin: 10/11/17 05:13 Dose: 100 mg Diphenhydramine HCl (Benadryl) 25 mg PO HS PRN PRN Reason: Insomnia Last Admin: 10/11/17 01:44 Dose: 25 mg Guaifenesin/Codeine Phosphate (Robitussin W/Codeine) 5 ml PO Q4H [facility]ERNANDO Last Admin: 10/11/17 09:51 Dose: 5 ml Sodium Chloride (Sodium Chloride 0.9%) 1,000 mls @ 100 mls/hr IV .Q10H [facility]ERNANDO Last Admin: 10/11/17 09:53 Dose: 100 mls/hr Etoposide 150 mg/ Sodium (Chloride) 507.5 mls @ 253.75 mls/hr IV ONCE ONE Stop: 10/11/17 16:59 Ondansetron HCl 16 mg/Dexamethasone 20 mg/Diphenhydramine HCl 25 mg/Famotidine 20 mg/ Sodium Chloride 65.5 mls @ 162 mls/hr IVPB ONCE ONE Stop: 10/11/17 15:24 Levalbuterol HCl (Xopenex) 0.63 mg IH [id number] [facility] Last Admin: 10/11/17 08:05 Dose: 0.63 mg Megestrol Acetate (Megace) 200 mg PO DAILY [facility] Last Admin: 10/11/17 09:50 Dose: 200 mg Oxycodone HCl (Oxycodone Immediate Release Tab) 5 mg PO Q6H PRN PRN Reason: Pain, moderate (4-7) Last Admin: 10/09/17 21:34 Dose: 5 mg Pantoprazole Sodium (Protonix Ec Tab) 40 mg PO 0600 [facility] Last Admin: 10/11/17 05:13 Dose: 40 mg Polyethylene Glycol (Miralax) 17 gm PO BID [facility] Last Admin: 10/11/17 09:50 Dose: 17 gm Sotalol HCl (Betapace) 80 mg PO BID [facility] Last Admin: 10/11/17 09:49 Dose: 80 mg - Labs Labs: 10/11/17 05:40 10/11/17 05:40 PT 14.2 SECONDS (9.4-12.5) H 10/07/17 06:00 INR 1.23 10/07/17 06:00 APTT 23.8 Seconds (25.1-36.5) L 10/07/17 06:00 - Additional Findings Additional findings: - Constitutional Appears: Older Than Stated Age, Chronically Ill - Head Exam Head Exam: ATRAUMATIC, NORMOCEPHALIC - Eye Exam Eye Exam: EOMI, PERRL. absent: Conjunctival injection, Nystagmus, Scleral icterus Pupil Exam: NORMAL ACCOMODATION, PERRL. absent: Miosis, Mydriatic, Unequal - ENT Exam ENT Exam: Mucous Membranes Moist - Neck Exam Neck Exam: Full ROM - Respiratory Exam Respiratory Exam: Decreased Breath Sounds - Cardiovascular Exam Cardiovascular Exam: RRR, +S1, +S2. absent: Murmur right sided chest port in place - GI/Abdominal Exam GI & Abdominal Exam: Soft, Normal Bowel Sounds. absent: Guarding, Rigid, Tenderness, Mass, Organomegaly, Rebound - Extremities Exam Extremities Exam: Normal Inspection. absent: Calf Tenderness, Pedal Edema - Back Exam Back Exam: NORMAL INSPECTION - Neurological Exam Neurological Exam: Alert, Awake, Oriented x3 - Psychiatric Exam Psychiatric exam: Normal Affect, Normal Mood - Skin Skin Exam: Dry, Normal Color, Warm Assessment and Plan - Assessment and Plan (Free Text) Assessment: 76 year old male with PMH gastric ulcer, gastritis, admitted for RLL pneumonia, found to have small cell lung cancer with extensive mediastinal and hilar adenopathy and lytic lesions at T7, other vertebral bodies and liver mets, s/p radiation treatments with Dr Iqbal and 2 sessions of chemotherapy: Small cell lung cancer with metastasis to bone, liver, s/p radiation and chemo session New onset afib Constipation, resolving RLL pneumonia Transaminitis 2/2 likely medication (rocephin) induced Chemotherapy - carboplatin and etoposide - c/w miralax bid. - c/w Megace - pathology report of hilar mass 10/02 showed small cell lung carcinoma - On eliquis 5 mg BID and sotalol for afib. as per cardio and primary team - Scheduled for 3 out of 3 chemotherapy sessions today: with carboplatin and etoposide - For home O2 use, consulted Physical therapy for evaluation/6 minute walk test. Encourage primary team to follow up results, reach out to Dr García for further recs. - Abd US showed increased echogenicity of liver parenchyma, 2 separate hypoechoic lesions. 2x1.3 cm in diameter. fatty infiltration - transaminitis improving - Will give Neupogen 400 mg sq for 7 days, begin 1st dose 24 hours after 3rd dose of chemo. Spoke with Thanh - outpatient pharmacy for giving Granix on TCU. Will f/u. - monitor Case discussed with Dr Lomeli.
[2017-10-11] MEDS ORDERED: Ondansetron 16 MG, Dexamethasone 20 MG, DiphenhydrAMINE 25 MG, Famotidine 20 MG in Sodi... IVPB ONE (15:00)
[2017-10-11 16:14] VITALS: BP 106/60; PULSE 67; TEMP 97.9; O2SAT 98
--- NOTE | 2017-10-11 18:24 | CP.PCM.PN ---
Subjective - Date & Time of Evaluation Date of Evaluation: 10/11/17 Time of Evaluation: 17:30 - Subjective Subjective: Infectious Disease Follow Up: October 11, 2017 76 yo male with presentation of SOB and cough productive of sputum. The patient has had symptoms for the past 3 weeks. He was recently in [place] for his son's wedding. Patient states that "food does not taste the same". He has lost [address] scan showing extensive right lower lobe pneumonia but what is more concerning is the extensive mediastinal and hilar adenopathy with lytic lesion at T7. The patient has been started on IV Rocephin and Azithromycin for antibiotic care. No WBC. Procalcitonin of 8.8 at this time. New onset Atrial Fibrillation two nights ago... transferred to telemetry. The family and the patient have been refusing biopsy at this time. Emphasized to the patient and present family members (daughter and son-in-law) importance of the biopsy in determining diagnosis and type of treatment options available for the patient. Patient states that he is not sleeping well in the hospital. Noted the patient with Atrial fibrillation last night. Taken for lung biopsy this week. The patient with hemoptysis. Seen by radiation oncology Dr. Iqbal for palliative radiation evaluation. Receiving radiation. Noted transaminitis... this has been downtrending the last few days. Hemoptysis improved. Pain in chest/lungs subsiding. Appetite still weak. 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 For transfer to TCU. Objective - Vital Signs/Intake and Output Vital Signs (last 24 hours): Temp Pulse Resp BP Pulse Ox 97.9 F 67 20 106/60 98 10/11/17 16:14 10/11/17 17:12 10/11/17 16:14 10/11/17 17:12 10/11/17 16:14 Intake and Output: 10/11/17 10/11/17 06:59 18:59 Intake Total 1800 Output Total 1150 Balance 650 - Medications Medications: Current Medications Apixaban (Eliquis) 5 mg PO BID [facility]ERNANDO PRN Reason: Protocol Last Admin: 10/11/17 17:13 Dose: 5 mg Benzonatate (Tessalon Perles) 100 mg PO Q8 [facility]O Last Admin: 10/11/17 13:26 Dose: 100 mg Diphenhydramine HCl (Benadryl) 25 mg PO HS PRN PRN Reason: Insomnia Last Admin: 10/11/17 01:44 Dose: 25 mg Guaifenesin/Codeine Phosphate (Robitussin W/Codeine) 5 ml PO Q4H [facility] Last Admin: 10/11/17 17:14 Dose: 5 ml Sodium Chloride (Sodium Chloride 0.9%) 1,000 mls @ 100 mls/hr IV .Q10H [facility] Last Admin: 10/11/17 09:53 Dose: 100 mls/hr Levalbuterol HCl (Xopenex) 0.63 mg IH [id number] [facility] Last Admin: 10/11/17 13:39 Dose: 0.63 mg Megestrol Acetate (Megace) 200 mg PO DAILY [facility] Last Admin: 10/11/17 09:50 Dose: 200 mg Oxycodone HCl (Oxycodone Immediate Release Tab) 5 mg PO Q6H PRN PRN Reason: Pain, moderate (4-7) Last Admin: 10/09/17 21:34 Dose: 5 mg Pantoprazole Sodium (Protonix Ec Tab) 40 mg PO 0600 [facility] Last Admin: 10/11/17 05:13 Dose: 40 mg Polyethylene Glycol (Miralax) 17 gm PO BID [facility] Last Admin: 10/11/17 17:13 Dose: 17 gm Sotalol HCl (Betapace) 80 mg PO BID [facility] Last Admin: 10/11/17 17:12 Dose: 80 mg - Labs Labs: 10/11/17 05:40 10/11/17 05:40 PT 14.2 SECONDS (9.4-12.5) H 10/07/17 06:00 INR 1.23 10/07/17 06:00 APTT 23.8 Seconds (25.1-36.5) L 10/07/17 06:00 - Constitutional Appears: Non-toxic, No Acute Distress, Chronically Ill - Head Exam Head Exam: ATRAUMATIC, NORMOCEPHALIC - Eye Exam Eye Exam: EOMI, PERRL Pupil Exam: NORMAL ACCOMODATION, PERRL - ENT Exam ENT Exam: Mucous Membranes Moist, Normal External Ear Exam, TM's Normal Bilaterally - Neck Exam Neck Exam: Full ROM, Normal Inspection - Respiratory Exam Respiratory Exam: Clear to Ausculation Bilateral, NORMAL BREATHING PATTERN. absent: Rales, Rhonchi, Wheezes - Cardiovascular Exam Cardiovascular Exam: REGULAR RHYTHM, RRR, +S1, +S2 - GI/Abdominal Exam GI & Abdominal Exam: Soft, Normal Bowel Sounds. absent: Distended, Tenderness - Extremities Exam Extremities Exam: Full ROM, Normal Inspection - Neurological Exam Neurological Exam: Alert, Awake, CN II-XII Intact, Oriented x3 - Psychiatric Exam Psychiatric exam: Normal Affect, Normal Mood - Skin Skin Exam: Intact, Normal Color Assessment and Plan - Assessment and Plan (Free Text) Assessment: 76 yo male with large amount of weight loss (19 lbs) and multiple CT lung findings. The patient started on Ceftriaxone and Azithromycin. Must rule out malignancy. Check for Tuberculosis. Check PPD and Quantiferon. Consider surgery or IR evaluation for biopsy of suspicious areas. Supportive care. May need Heme/Onc evaluation as well. Check ESR and C-Reactive Protein. The most likely diagnosis given the current symptoms is malignancy. Given overall picture, Tuberculosis is a much less likely diagnosis. Malignancy is extremely likely. Overall prison prognosis is very poor. Discussed with family and the patient importance of a biopsy in determining diagnosis and available care/ treatment options. Rocephin on hold due to sudden transaminitis. Taken for lung/liver biopsy. Pathology pending. Patient has chest tube in place for pneumothorax from procedure. Hemoptysis improving. For Port-A-Cath on Sunday and possible chemotherapy. Pathology showing small cell carcinoma. Port-A-Cath placed. Chemotherapy started on Sunday. For transfer to TCU. Currently off of antibiotics. Thank you for allowing me to participate in the care of the patient, we will follow with you.
--- NOTE | 2017-10-11 23:39 | PN ---
Copied To: Lenka García MD Attending MD: Lenka García MD. DATE: 10/11/2017 PULMONARY PROGRESS NOTE REFERRING PHYSICIAN: Dr. Larkin. SUBJECTIVE: He is lying in the bed, sleepy, arousable. Night was unremarkable. On radiation and chemotherapy. Cough is better. No nausea, no vomiting, no diarrhea. No leg pain or leg swelling. PHYSICAL EXAMINATION: GENERAL: In no acute distress. VITAL SIGNS: Temperature is 98, heart rate 67, respiratory rate is 20, blood pressure 106/60, pulse x of 98% on 3 liters nasal cannula. HEENT: Moist mucous membrane. Crowded airway. NECK: Supple. No JVD. LUNGS: Have a few scattered rhonchi, overall fair airflow. HEART: S1 and S2. ABDOMEN: Soft, nontender. No organomegaly. EXTREMITIES: No edema. NEUROLOGIC: Sleepy, arousable. Follows simple command. MEDICATIONS: He is on Benadryl 25 mg at bedtime p.r.n., sotalol 80 mg twice a day, Eliquis 5 mg twice a day, Megace 200 mg daily, MiraLax 17 g twice a day, oxycodone immediate release 5 mg every 6 hours p.r.n., Protonix 40 mg daily, Robitussin with codeine 5 mL every 4 hours, IV fluid normal saline 100 mL/hour, Tessalon Perles every 8 hours, Xopenex inhaled every 6 hours. LABORATORY DATA: Shows hemoglobin 11.7, hematocrit 34.4, WBC 8.6, platelet count is 247. Sodium 134, potassium 4.9, chloride 106, bicarbonate 22, BUN 18, creatinine 0.6, glucose 183, calcium 7.8. AST 62, ALT is 179, alkaline phosphatase is 78. Albumin is 2.5. Microbiology: Sputum culture and blood culture, there is no growth. IMPRESSION AND PLAN: Unresectable lung cancer status post biopsy, ended up with pneumothorax which is resolved hemothorax and hemoptysis which is also resolved; chronic obstructive lung disease; on radiation and chemotherapy. Doing well. Continue bronchodilator. Prednisone discontinued. Gastric prophylaxis. May restart anticoagulation if okay with Hematology and Cardiology. Thank you and we will follow with you. Lenka García MD [facility] # [id number]
== END 2017-10-11 20:42 | DRG 180 ==
LOC: ED 23:07 → ERH 09-25 01:09 → 5RNO 09-25 03:40 → 2RNO 09-26 02:21 → OBSVTOIN 09-26 07:28 → 3RNO 10-05 17:59
PROVIDERS: ADMIT Internal Medicine; ATTEND Internal Medicine
PROC: 3E0F7GC Introduction of Other Therapeutic Substance into Respiratory Tract, Via Natural or Artificial Opening (ICD-10-PCS; 2017-09-26)
PROC: 0W9930Z Drainage of Right Pleural Cavity with Drainage Device, Percutaneous Approach (ICD-10-PCS; 2017-10-01)
PROC: 0BBK3ZX Excision of Right Lung, Percutaneous Approach, Diagnostic (ICD-10-PCS; principal; 2017-10-01 13:00)
PROC: DB021ZZ Beam Radiation of Lung using Photons 1 - 10 MeV (ICD-10-PCS; 2017-10-02)
PROC: 0JH63WZ Insertion of Totally Implantable Vascular Access Device into Chest Subcutaneous Tissue and Fascia, Percutaneous Approach (ICD-10-PCS; 2017-10-08)
PROC: 02HV33Z Insertion of Infusion Device into Superior Vena Cava, Percutaneous Approach (ICD-10-PCS; 2017-10-08)
PROC: B518ZZA Fluoroscopy of Superior Vena Cava, Guidance (ICD-10-PCS; 2017-10-08)
PROC: 3E04305 Introduction of Other Antineoplastic into Central Vein, Percutaneous Approach (ICD-10-PCS; 2017-10-09)
DX: C7A.090 Malignant carcinoid tumor of the bronchus and lung (principal); J18.9 Pneumonia, unspecified organism; J95.811 Postprocedural pneumothorax; C7B.03 Secondary carcinoid tumors of bone; C7B.02 Secondary carcinoid tumors of liver; C7B.09 Secondary carcinoid tumors of other sites; J44.0 Chronic obstructive pulmonary disease with (acute) lower respiratory infection; M48.56XA Collapsed vertebra, not elsewhere classified, lumbar region, initial encounter for fracture; R04.2 Hemoptysis; R64 Cachexia; K59.00 Constipation, unspecified; I48.0 Paroxysmal atrial fibrillation; E87.5 Hyperkalemia; E83.39 Other disorders of phosphorus metabolism; Z68.22 Body mass index [BMI] 22.0-22.9, adult; R63.4 Abnormal weight loss; F40.240 Claustrophobia; Z79.01 Long term (current) use of anticoagulants; G47.00 Insomnia, unspecified; K29.70 Gastritis, unspecified, without bleeding; F17.200 Nicotine dependence, unspecified, uncomplicated

== ENCOUNTER 2017-10-11 20:43 | Inpatient (IN) | payer OTHER ==
[2017-10-11] MEDS ORDERED: guaiFENesin-Codeine 100-10mg/5ml Syrup (5 ml) UD PO SCH (21:15)
[2017-10-11] MEDS: guaiFENesin-Codeine 100-10mg/5ml Syrup (5 ml) UD PO SCH (23:06)
[2017-10-12 00:44] VITALS: BMI 23.3
[2017-10-12] MEDS: Levalbuterol 0.63 MG/3 ML Inhal Soln UD IH SCH ×4 (01:31→19:26)
[2017-10-12] MEDS: guaiFENesin-Codeine 100-10mg/5ml Syrup (5 ml) UD PO SCH ×6 (03:27→23:19)
[2017-10-12] MEDS: Pantoprazole 40 mg EC Tab PO SCH (05:29)
--- NOTE | 2017-10-12 07:43 | CP.PCM.PN ---
Subjective - Date & Time of Evaluation Date of Evaluation: 10/12/17 Time of Evaluation: 08:00 - Subjective Subjective: Mr Layton has stage IV lung cancer. He is currently on palliative radiation to the lung mass. Now that he is in the TCU, we will be resuming his radiation as per Dr Martinez's [facility] policy addendum for TCU Objective - Vital Signs/Intake and Output Vital Signs (last 24 hours): Temp Pulse Resp BP Pulse Ox 98.2 F 61 18 112/68 10/12/17 00:18 10/12/17 00:18 10/12/17 00:18 10/12/17 00:18 - Medications Medications: Current Medications Apixaban (Eliquis) 5 mg PO BID FERNANDO PRN Reason: Protocol Benzonatate (Tessalon Perles) 100 mg PO Q8 FERNANDO PRN Reason: Protocol Last Admin: 10/11/17 21:54 Dose: 100 mg Diphenhydramine HCl (Benadryl) 25 mg PO HS PRN; Protocol PRN Reason: Insomnia Last Admin: 10/11/17 23:06 Dose: 25 mg Guaifenesin/Codeine Phosphate (Robitussin W/Codeine) 5 ml PO Q4H FERNANDO PRN Reason: Protocol Last Admin: 10/12/17 03:27 Dose: 5 ml Home Med (Home Med) 1 unit SC DAILY FERNANDO Stop: 10/19/17 10:01 Levalbuterol HCl (Xopenex) 0.63 mg IH [id number] [facility] PRN Reason: Protocol Last Admin: 10/12/17 07:17 Dose: 0.63 mg Megestrol Acetate (Megace) 200 mg PO DAILY [facility] PRN Reason: Protocol Oxycodone HCl (Oxycodone Immediate Release Tab) 5 mg PO Q6H PRN; Protocol PRN Reason: Pain, moderate (4-7) Pantoprazole Sodium (Protonix Ec Tab) 40 mg PO 0600 [facility]ERNA[facility]O PRN Reason: Protocol Last Admin: 10/12/17 05:29 Dose: 40 mg Polyethylene Glycol (Miralax) 17 gm PO BID FERNANDO PRN Reason: Protocol Sotalol HCl (Betapace) 80 mg PO BID FERNANDO PRN Reason: Protocol
--- NOTE | 2017-10-12 08:13 | CP.PCM.HP ---
<CarloKai - Last Filed: 10/12/17 18:36> History of Present Illness - History of Present Illness History of Present Illness: Kai Matos DO PGY1 Internal Medicine Casualty Claim Adjuster - TCU H&P HPI: Pt is a 76 yo male with a past medical history of only GI ulcer in 2014 who [place] [facility] [place] for 3 weeks of productive cough with white/yellow sputum and SOB. He denies blood in his sputum. He states that he traveled to [place] for his son's wedding and [place] a [place] ago. He reports a recent 19lb wt loss, due to "food does not taste the same". Pt quit smoking about 5 years ago. Pt reports he has been using Tim's Vapor rub, but it has not helped very much. He states that he is SOB which is worse when he lays down and better when he sits up. He denies CP, fevers, headaches, abdominal pain, diarrhea, vomiting, melena, recent sickness and urinary complaints. He currently takes no medication. 12 point ROS obtained, pertinent positives and negatives added to HPI. Hospital Course: CT Chest 09/25/17 - performed shortly after admission, revealed extensive mediastinal and hilar adenopathy suspicious for underlying pulmonary malignancy. Lytic lesion at T7 consistent with metastatic disease. Scattered sclerotic lesions. Extensive right lower pneumonia. CT AP 09/25/17 - revealed scattered osteoblastic lesions in multiple vertebral bodies, posterior elements and ribs. Age-indeterminate fracture of the L4 superior endplate which may be acute and/ or pathologic. L4 compression fracture. CT Head 09/27/17 - No evidence of metastatic disease; no acute intracranial pathology MRI thoracic spine 09/27/17 - revealed same T7 metastatic processes however showed no evidence of epidural invasion and cord compression. Bone scan findings 10/27/17 - showed increased activity at the L4 level corresponding ot compression fracture seen on CT. Also revealed actiicty at T7 level corresponding to the lytic lesions seen on CT; multiple rib lesions are seen consistent w/ metastatic disease. Increased activity at the junction of the manubrium and sternum; this appears as a chronic bony fusion on CT. Lung CA: Initially there was some opposition to biopsy by family and patient however on , CT guided biopsy of mediastinal mass was performed. Patient had a subsequent pneumothorax from procedure and chest tube was placed and removed after 3 days; pneumothorax resolution was visualized on CXR morning after biopsy as well as after removal of chest tube. Patient was started on palliative radiation (10/02) while awaiting pathology report. Subsequently, path report yielded small cell lung CA. Port placed 10/08, and Patient began first round of carboplatin/ etoposide based chemo therapy from 10/09-10/11. Post obsructive pneumonia Pt. was initially started on IV antibiotics on admission and antibiotics were stopped 10/07 after roughly 10 total days. Patient was supplemented with xopenex nebulized, as well as a short course of oral steroids to assist w/ respiratory function. No signs/symtpoms of recurrence of pneumonia or systemic infection post antibiotic course. Afib w/ RVR: His hospital course was complicated with [employer] [employer] called for new-onset afib w/ RVR; patient was initially anticoagulated w/ heparin drip and subseuqently switched to eliquis. Patient is rate controlled at this time w/ Sotalol. Transaminitis: Hospital course was also complicated with transaminitis. On 10/04 mild trans aminitis was noted, and subsequently worsened on 10/05. Hepatitis panel negative, Abdominal US revealed increased echogenicity of the liver w/ two separate hypoechoic lesions measuring 2cm and 1.3cm in diameter; other findings on US revealed 3cm cyst on the R kidney, and 3 separate cysts on L kidney ranging from 1.5-3cm in diameter. Hepatotoxic medications were switched or DC'd. Since aforementioned interventions performed; transaminitis has been slowly resolving. Transaminitis thought to be 2/2 decompensation in light of liver metastases, DILI with recent initiation of Ceftriaxone or possible compression of hepatic vasculature as a result of metastatic disease. Patient was discharged to TCU on 10/11 PM Pt. was seen this AM 10/12 at bedside. Patient stable; no acute events reported overnight. Still w/ complaints of dry cough; however stated it was improving. Present on Admission - Present on Admission Any Indicators Present on Admission: No Review of Systems - Review of Systems All systems: reviewed and no additional remarkable complaints except Review of Systems: as per HPI Past Patient History - Tetanus Immunizations Tetanus Immunization: Unknown - Past Social History Smoking Status: Former Smoker - CARDIAC Hx Cardiac Disorders: No - PULMONARY Hx Respiratory Disorders: No - NEUROLOGICAL Hx Neurological Disorder: No - HEENT Hx HEENT Problems: No - RENAL Hx Chronic Kidney Disease: No - ENDOCRINE/METABOLIC Hx Endocrine Disorders: No - HEMATOLOGICAL/ONCOLOGICAL Hx Blood Disorders: No - INTEGUMENTARY Hx Dermatological Problems: No - MUSCULOSKELETAL/RHEUMATOLOGICAL Hx Falls: No - GASTROINTESTINAL Hx Gastrointestinal Disorders: No - GENITOURINARY/GYNECOLOGICAL Hx Genitourinary Disorders: No Hx Reproductive Disorders: No - PSYCHIATRIC Hx Depression: No Hx Emotional Abuse: No Hx Physical Abuse: No Hx Substance Use: No - SURGICAL HISTORY Hx Surgeries: No Hx Amputation: No Other/Comment: colonoscopy [address]num, no findings. Meds Home Medications: Home Medication List Medication Instructions Recorded Confirmed Type Tbo-Filgrastim [Granix] 480 mcg SC DAILY #7 ml 10/12/17 Rx Allergies/Adverse Reactions: Allergies Allergy/AdvReac Type Severity Reaction Status Date / Time No Known Allergies Allergy Verified 10/11/17 21:06 Physical Exam - Constitutional Appears: Well, Non-toxic, No Acute Distress, Cachectic - Head Exam Head Exam: ATRAUMATIC, NORMOCEPHALIC - Eye Exam Eye Exam: EOMI, Normal appearance, PERRL. absent: Scleral icterus - ENT Exam ENT Exam: Mucous Membranes Moist - Respiratory Exam Respiratory Exam: NORMAL BREATHING PATTERN Additional comments: RML/RLL crackles; minimal some ronchi - Cardiovascular Exam Cardiovascular Exam: REGULAR RHYTHM, RRR, +S1, +S2. absent: Systolic Murmur - GI/Abdominal Exam GI & Abdominal Exam: Normal Bowel Sounds, Soft. absent: Tenderness - Back Exam Back exam: absent: CVA tenderness (L), CVA tenderness (R) - Neurological Exam Neurological exam: Alert, CN II-XII Intact, Oriented x3 - Psychiatric Exam Psychiatric exam: Normal Affect, Normal Mood - Skin Skin Exam: Dry, Intact, Normal Color, Warm Results - Vital Signs Recent Vital Signs: Last Vital Signs Temp 98.2 F 10/12/17 00:18 Pulse 61 10/12/17 00:18 Resp 18 10/12/17 00:18 BP 112/68 10/12/17 00:18 Pulse Ox Assessment & Plan - Assessment and Plan (Free Text) Assessment: 76M w/ PMHx GI ulcer 2015, presented w/ 3wk hx of productive cough, found to be postobstructive pneumonia in the setting of primary lung CA w/ mets to liver and bone. Patient was biopsied on 10/02 and is currently receiving palliative radiation at this time. Status post first round of chemo therapy. Hospital course was complicated by new onset Afib which is rate controlled w/ sotalol, and anticoagulated w/ elqiuis. Plan: Pulmonary Malignancy s/p CT guided biopsy CT chest 09/25: extensive mediastinal and hilar lymphadenopathy suspicious for underlying pulmonary malignancy. Lytic lesion at T7 consistent with metastatic disease. Scattered sclerotic lesions. Extensive R lower lobe pneumonia. Ct abd/ pelvis 09/25: scattered osteoblastic lesions in multiple vertebral bodies, posterior elements and ribs. Age-indeterminate fracture of L4 superior end-plate , may be acute and/or pathologic. Low density lesion in anterolateral liver, metastasis suspected. Ct head 09/27: no evidence of metastatic disease, no acute intracranial findings Bone scan 09/26: findings consistent with bony metastatic disease Patient underwent CT guided biopsy of lung mass on 10/01 complicated by pneumothorax now resolved; chest tube was placed due to pneumothorax and has now been removed Patient hemoptysis improving Unofficial pathology of hilar mass - Small Cell Ca; Official report pending Radiation as per Dr. Iqbal Patient has received first dose of chemo therapy yesterday. Cisplatin based therapy occurring Q28 days. Consults: ID Consulted (Dr. Coker), recs appreciated Pulm consulted (Dr. García), recs appreciated - c/w Xopenex Q6H , Solumedrol 20mg Q12H Heme/onc consulted (Dr. Lomeli), recs appreciated -c/w megace, pallative radiation as per IR, port placement 10/08, x1 treatment ChemoRad tentative on 10/09 , Discussed with pathologist Dr Cage regarding patient's biopsy, like small cell lung carcinoma, will await for official pathology reports: Radiation onc consulted (Dr. Iqbal), recs appreciated - Patient receiving pallative radiation Transaminitis - Resolving New onset elevated transaminases in hepatocellular pattern Hepatotoxic meds discontinued Ceftriaxone discontinued 10/05/[address] Bynum, vanessas appreciated * Differential include decompensation in light of liver metastases, DILI with recent initiation of Ceftriaxone or possible compression of hepatic vasculature as a result of metastatic disease * Patient refusing MRI at this time given claustrophobia and previous negative experience Post-Obstructive Pneumonia -Resolving CXR on admission 09/25: extensive alveolar infiltrate in R lower lobe consistent with pneumonia Afebrile w/o WBC elevation; no complaints of cough C/w Solumderol 20 QD C/w Xopenex as per pulm reccs C/w Robitussin+Codeine PRN and Tessalon perles PRN C/w bronchodialator Xopenex as per pulm reccs ID consulted (Dr. Coker), recs appreciated Pulm consulted (Dr. García), recs appreciated New-onset atrial fibrillation with rapid ventricular response Rapid response called on 09/26/17; pt had additional episode overnight that converted back to normal sinus rhythm spontaneously Pt. off tele Continue Sotalol as per cardiology Start anticoagulation w/ eliquis 5mg BID Cardio consulted (Dr. Chirinos), recs appreciated Electrolyte abnormalities HyperK/ Hypophos / Hyper mag Continue following levels; treat/replete as necessary Treat hypophos w/ sodium phos as to not upset other electrolyte balances Nephrology (Dr Barrera) has signed off DVT/GI ppx: SCD /Protonix Disposition plan: Patient has completed his first round of chemotherapy, and has been transferred for TCU for reconditioning and PT. Patient seen, examined, and case discussed w/ attending physician Dr. Graciela Matos DO PGY1 Internal Medicine Casualty Claim Adjuster - Pager [phone] - Date & Time Date: 10/12/17 Time: 19:10 <Lenka Owens - Last Filed: 10/13/17 14:06> Results - Vital Signs Recent Vital Signs: Last Vital Signs Temp 97.8 F 10/12/17 16:00 Pulse 64 10/13/17 11:04 Resp 20 10/12/17 16:00 BP 102/63 10/13/17 11:04 Pulse Ox 96 10/12/17 16:00 - Labs Result Diagrams: 10/13/17 05:22 10/13/17 05:22 Labs: Laboratory Results - last 24 hr 10/13/17 10/13/17 05:22 05:22 WBC 38.8 H* D RBC 4.50 Hgb 13.3 L Hct 38.6 L MCV 85.8 MCH 29.6 MCHC 34.5 RDW 14.3 Plt Count 241 MPV 10.3 Gran % 98.6 H Lymph % (Auto) 1.1 L Harrison % (Auto) 0.1 L Eos % (Auto) 0.0 L Baso % (Auto) 0.2 Gran # 38.19 H Lymph # (Auto) 0.4 L Harrison # (Auto) 0.0 L Eos # (Auto) 0.0 Baso # (Auto) 0.08 Sodium 135 Potassium 5.1 H Chloride 103 Carbon Dioxide 27 Anion Gap 11 BUN 23 H Creatinine 0.8 Est GFR ( Amer) > 60 Est GFR (Non-Af Amer) > 60 Random Glucose 125 H Calcium 8.6 Phosphorus 2.5 Magnesium 2.2 Total Bilirubin 1.1 AST 50 ALT 155 H Alkaline Phosphatase 74 Total Protein 5.6 L Albumin 2.7 L Globulin 2.9 Albumin/Globulin Ratio 0.9 L Attending/Attestation - Attestation I have personally seen and examined this patient.: Yes I have fully participated in the care of the patient.: Yes I have reviewed all pertinent clinical information: Yes Notes (Text): 10/13/17 14:05 Medical record note made by the resident after discussion with my direction and input after the patient was personally seen and examined by me. I have reviewed the chart and agree that the record accurately reflects by personal performance of the history, physical exam, data review, and medical decision-making, in the course for the patient. I have also personally directed the plan of care. 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 CT chest done showed RLL Pneumonia , likely post obstructive, diffuse moderate mediastinal MYA, and numerous extra-pulmonary lesions suggestive of metastatic process.CT abd/pelvis revealed lesion in liver and osteolytic lesion in thoracic and lumbar spine possible metastasis. Pt also had rapid response on for new-onset atrial fibrillation with rapid ventricular response.Patient is SP lung biopsy. Post biopsy had pneumothorax but now chest tube is removed. Pathology showed small cell carcinoma. Started on radiation therapy and chemotherapy.Patient has been restarted on anticoagulation with Apixiban.Hemoglobin is stable.LFT are coming down..AF rate is controlled. Patient is admitted to TCU for rehabilitation. Management plan was discussed in detail with patient. Education was provided.
[2017-10-12] MEDS: Megestrol Acetate 40 mg/ml Cup PO SCH (09:52)
[2017-10-12] MEDS: POLYETHYLENE GLYCOL 3350 17 GM/Dose PACKET PO SCH ×2 (09:53→17:28)
--- NOTE | 2017-10-12 10:47 | CP.PCM.PN ---
Subjective - Date & Time of Evaluation Date of Evaluation: 10/12/17 Time of Evaluation: 10:10 - Subjective Subjective: Seen and examined at bedside, chart reviewed, no C/O N/V or abdominal pain. Not certain of last BM,report not to have a good appetite,on Megace, denies dysphagia. For radiation treatment this am. Denies SOB, CP fever or chills. No acute overnight events reported. Nursing reports patient to be forgetfull at times. Objective - Vital Signs/Intake and Output Vital Signs (last 24 hours): Temp Pulse Resp BP Pulse Ox 98.2 F 58 L 18 108/60 10/12/17 00:18 10/12/17 09:52 10/12/17 00:18 10/12/17 09:52 - Medications Medications: Current Medications Apixaban (Eliquis) 5 mg PO BID FERNANDO PRN Reason: Protocol Last Admin: 10/12/17 09:51 Dose: 5 mg Benzonatate (Tessalon Perles) 100 mg PO Q8 FERNANDO PRN Reason: Protocol Last Admin: 10/12/17 09:50 Dose: 100 mg Diphenhydramine HCl (Benadryl) 25 mg PO HS PRN; Protocol PRN Reason: Insomnia Last Admin: 10/11/17 23:06 Dose: 25 mg Guaifenesin/Codeine Phosphate (Robitussin W/Codeine) 5 ml PO Q4H FERNANDO PRN Reason: Protocol Last Admin: 10/12/17 09:00 Dose: 5 ml Home Med (Home Med) 1 unit SC DAILY FERNANDO Stop: 10/19/17 10:01 Levalbuterol HCl (Xopenex) 0.63 mg IH [id number] FERNANDO PRN Reason: Protocol Last Admin: 10/12/17 07:17 Dose: 0.63 mg Megestrol Acetate (Megace) 200 mg PO DAILY FERNANDO PRN Reason: Protocol Last Admin: 10/12/17 09:52 Dose: 200 mg Oxycodone HCl (Oxycodone Immediate Release Tab) 5 mg PO Q6H PRN; Protocol PRN Reason: Pain, moderate (4-7) Pantoprazole Sodium (Protonix Ec Tab) 40 mg PO 0600 FERNANDO PRN Reason: Protocol Last Admin: 10/12/17 05:29 Dose: 40 mg Polyethylene Glycol (Miralax) 17 gm PO BID FERNANDO PRN Reason: Protocol Last Admin: 10/12/17 09:53 Dose: 17 gm Sotalol HCl (Betapace) 80 mg PO BID FERNANDO PRN Reason: Protocol Last Admin: 10/12/17 09:52 Dose: Not Given - Constitutional Appears: No Acute Distress - Head Exam Head Exam: NORMOCEPHALIC - Eye Exam Eye Exam: Normal appearance. absent: Scleral icterus - ENT Exam ENT Exam: Mucous Membranes Moist - Neck Exam Neck Exam: Normal Inspection - Respiratory Exam Respiratory Exam: NORMAL BREATHING PATTERN. absent: Respiratory Distress - Cardiovascular Exam Cardiovascular Exam: +S1, +S2 - GI/Abdominal Exam GI & Abdominal Exam: Soft, Normal Bowel Sounds. absent: Guarding, Tenderness, Rebound - Extremities Exam Extremities Exam: Pedal Edema (mild). absent: Calf Tenderness - Neurological Exam Neurological Exam: Alert, Awake, Oriented x3 - Skin Skin Exam: Dry, Warm Assessment and Plan - Assessment and Plan (Free Text) Assessment: Assessment: Abnormal LFTs,Differential include decompensation in light of liver metastases, DILI with recent initiation of Ceftriaxone or possible compression of hepatic vasculature as a result of metastatic disease Non-small cell lung cancer with metastasis, RT and chemo, s/p 3 doses H/O Paroxsymal Atrial Fibrillation Plan: continue to monitor LFTs, show downward trend continue PPI continue diet as tolerated on Eliquis on Miralax BID Patient refusing MRI, claustrophobic on Radiation treatment as per oncology Seen and discussed w/ Dr. Bynum.
--- NOTE | 2017-10-12 11:35 | CP.PCM.PN ---
Subjective - Date & Time of Evaluation Date of Evaluation: 10/12/17 Time of Evaluation: 11:34 - Subjective Subjective: Sobeida Dukes, PGY2, Heme-Onc Progress Note for Dr Lomeli: This is a 76 year old male with PMH gastric ulcer, gastritis, admitted for pneumonia, found to have small cell lung carcinoma with extensive mediastinal and hilar adenopathy and lytic lesions at T7, other vertebral bodies and liver mets, s/p radiation treatments and 3 chemotherapy sessions. Patient to receive radiation session this AM. No acute events overnight. Patient reports that his cough has improved, receiving his [facility] cough medicine. Denies any mouth sores. Reports a BM this AM. His appetite is poor as per nursing staff. Denies fevers , chills, nausea, vomiting, abdominal pain, leg swelling, urinary complaints, easy bruising. Objective - Vital Signs/Intake and Output Vital Signs (last 24 hours): Temp Pulse Resp BP Pulse Ox 98.2 F 58 L 18 108/60 10/12/17 00:18 10/12/17 09:52 10/12/17 00:18 10/12/17 09:52 - Medications Medications: Current Medications Apixaban (Eliquis) 5 mg PO BID FERNANDO PRN Reason: Protocol Last Admin: 10/12/17 09:51 Dose: 5 mg Benzonatate (Tessalon Perles) 100 mg PO Q8 FERNANDO PRN Reason: Protocol Last Admin: 10/12/17 09:50 Dose: 100 mg Diphenhydramine HCl (Benadryl) 25 mg PO HS PRN; Protocol PRN Reason: Insomnia Last Admin: 10/11/17 23:06 Dose: 25 mg Guaifenesin/Codeine Phosphate (Robitussin W/Codeine) 5 ml PO Q4H FERNANDO PRN Reason: Protocol Last Admin: 10/12/17 09:00 Dose: 5 ml Home Med (Home Med) 1 unit SC DAILY FERNANDO Stop: 10/19/17 10:01 Levalbuterol HCl (Xopenex) 0.63 mg IH [id number] FERNANDO PRN Reason: Protocol Last Admin: 10/12/17 07:17 Dose: 0.63 mg Megestrol Acetate (Megace) 200 mg PO DAILY FERNANDO PRN Reason: Protocol Last Admin: 10/12/17 09:52 Dose: 200 mg Oxycodone HCl (Oxycodone Immediate Release Tab) 5 mg PO Q6H PRN; Protocol PRN Reason: Pain, moderate (4-7) Pantoprazole Sodium (Protonix Ec Tab) 40 mg PO 0600 FERNANDO PRN Reason: Protocol Last Admin: 10/12/17 05:29 Dose: 40 mg Polyethylene Glycol (Miralax) 17 gm PO BID FERNANDO PRN Reason: Protocol Last Admin: 10/12/17 09:53 Dose: 17 gm Sotalol HCl (Betapace) 80 mg PO BID FERNANDO PRN Reason: Protocol Last Admin: 10/12/17 09:52 Dose: Not Given - Additional Findings Additional findings: - Constitutional Appears: Older Than Stated Age, Chronically Ill - Head Exam Head Exam: ATRAUMATIC, NORMOCEPHALIC - Eye Exam Eye Exam: EOMI, PERRL. absent: Conjunctival injection, Nystagmus, Scleral icterus Pupil Exam: NORMAL ACCOMODATION, PERRL. absent: Miosis, Mydriatic, Unequal - ENT Exam ENT Exam: Mucous Membranes Moist - Neck Exam Neck Exam: Full ROM - Respiratory Exam Respiratory Exam: Decreased Breath Sounds - Cardiovascular Exam Cardiovascular Exam: RRR, +S1, +S2. absent: Murmur right sided chest port in place - GI/Abdominal Exam GI & Abdominal Exam: Soft, Normal Bowel Sounds. absent: Guarding, Rigid, Tenderness, Mass, Organomegaly, Rebound - Extremities Exam Extremities Exam: Normal Inspection. absent: Calf Tenderness, Pedal Edema - Back Exam Back Exam: NORMAL INSPECTION - Neurological Exam Neurological Exam: Alert, Awake, Oriented x3 - Psychiatric Exam Psychiatric exam: Normal Affect, Normal Mood - Skin Skin Exam: Dry, Normal Color, Warm Assessment and Plan - Assessment and Plan (Free Text) Assessment: 76 year old male with PMH gastric ulcer, gastritis, admitted for RLL pneumonia, found to have small cell lung cancer with extensive mediastinal and hilar adenopathy and lytic lesions at T7, other vertebral bodies and liver mets, s/p radiation treatments with Dr Iqbal and 3 sessions of chemotherapy: Small cell lung cancer with metastasis to bone, liver, s/p radiation and chemo session New onset afib Constipation, resolving RLL pneumonia Transaminitis 2/2 likely medication (rocephin) induced Chemotherapy - carboplatin and etoposide - c/w miralax bid. - c/w Megace - pathology report of hilar mass 10/02 showed small cell lung carcinoma - On eliquis 5 mg BID and sotalol for afib. as per cardio and primary team - completed 3/3 chemotherapy sessions with carboplatin and etoposide, last session 10/11 - For home O2 use, consulted Physical therapy for evaluation/6 minute walk test , passed it. Encourage primary team to follow up results, reach out to Dr García for further recs. - Abd US showed increased echogenicity of liver parenchyma, 2 separate hypoechoic lesions. 2x1.3 cm in diameter. fatty infiltration - transaminitis improving - Will give Neupogen 400 mg sq for 7 days, begin 1st dose 24 hours after 3rd dose of chemo. - monitor Case discussed with Dr Lomeli.
[2017-10-12] MEDS: GRANIX SC SCH (12:28)
[2017-10-13] MEDS: Levalbuterol 0.63 MG/3 ML Inhal Soln UD IH SCH ×4 (01:35→20:14)
[2017-10-13] MEDS: guaiFENesin-Codeine 100-10mg/5ml Syrup (5 ml) UD PO SCH ×5 (05:00→20:27)
[2017-10-13] MEDS: Pantoprazole 40 mg EC Tab PO SCH (05:08)
--- NOTE | 2017-10-13 05:45 | CON ---
Copied To: Lenka García MD Attending MD: Lenka García MD DATE: 10/12/2017 REFERRING PHYSICIAN: Dr. Matos. REASON FOR CONSULTATION: Chronic lung disease, recently diagnosed, with unresectable lung cancer. HISTORY OF PRESENT ILLNESS: This is a 76-year-old gentleman with a history of chronic obstructive lung disease, gastritis, cancer, ulcer, recently admission from acute site, found to have a small cell lung cancer with extensive disease involving the thoracic spine, liver mets, requiring port-a-cath receiving radiation therapy, also been on chemotherapy, transferred to [facility] for continued care, status post biopsy ended up with pneumothorax, also ended up with hemoptysis which is all improved, has a minimal cough. No nausea, no vomiting, no diarrhea. No leg pain or leg swelling. PAST MEDICAL HISTORY: As per history of present illness. ALLERGIES: NONE KNOWN. SOCIAL HISTORY: Recently stopped smoking. FAMILY HISTORY: No significant cardiopulmonary disease reported. MEDICATIONS: On Benadryl 25 mg at bedtime p.r.n., sotalol 80 mg twice a day, Eliquis 5 mg twice a day, Megace 200 mg daily, MiraLax 17 g twice a day, oxycodone immediate release 5 mg every 6 hours p.r.n., Protonix 40 mg daily, Robitussin with codeine 5 mL every 4 hours, Tessalon Perles 100 mg every 8 hours, Xopenex inhaled every 6 hours. REVIEW OF SYSTEM: Denies any headache, no rhinitis. Mild cough. Gets short of breath with exertion. No chest pain. No nausea, no vomiting, no diarrhea. No leg pain or leg swelling. PHYSICAL EXAMINATION: GENERAL: Lying in the bed, in no acute distress. VITAL SIGNS: Temperature is 98, heart rate 65, respiratory rate is 20, blood pressure 114/66, pulse ox 96% on nasal canula. HEENT: Moist mucous membrane. Crowded airway. NECK: Supple. No JVD. LUNGS: Have a few scattered rhonchi, without any wheezing. HEART: S1 and S2. ABDOMEN: Soft, nontender, no organomegaly. EXTREMITIES: No edema. NEUROLOGICAL: Awake, alert, follow simple commands. LABORATORY DATA: Reviewed. No new lab is available since yesterday. IMPRESSION AND PLAN: Chronic obstructive lung disease, unresectable lung cancer, with extensive disease involving the spine and liver, which is a small cell lung cancer, also paroxysmal atrial fibrillation, chronic lung disease, history of gastric ulcer in the past. Pulmonary point of view, he is doing okay. Continue bronchodilator. Keep head at 45 degrees. Gastric prophylaxis. Oncology followup. Start therapy. Thank you and we will follow with you. Lenka García MD
[2017-10-13 05:51] LABS: BASO # 0.08 K/mm3 (0.0-2.0); BASO % 0.2 % (0.0-3.0); GRAN # 38.19 (1.4-6.5); GRAN % 98.6 % (50.0-68.0); HEMOGLOBIN 13.3 g/dL (14.0-18.0); LYMPH # 0.4 (1.2-3.4); LYMPH % 1.1 % (22.0-35.0); MEAN CELL VOLUME 85.8 fl (80.0-105.0); MEAN CORPUSCULAR HEMOGLOBIN 29.6 pg (25.0-35.0); MEAN CORPUSCULAR HGB CONC 34.5 g/dl (31.0-37.0); MEAN PLATELET VOLUME 10.3 fl (7.0-11.0); MONO % 0.1 % (1.0-6.0); RBC 4.5 10^6/uL (3.5-6.1); RED CELL DISTRIBUTION WIDTH 14.3 % (11.5-14.5)
[2017-10-13 05:56] LABS: WHITE BLOOD COUNT 38.8 10^3/ul (4.5-11.0)
[2017-10-13 05:59] LABS: ALB/GLOB RATIO 0.9 (1.1-1.8); ALBUMIN 2.7 g/dL (3.0-4.8); ALT/SGPT 155 U/L (7-56); AST/SGOT 50 U/L (17-59); BLOOD UREA NITROGEN 23 mg/dL (7-21); CALCIUM 8.6 mg/dL (8.4-10.5); GFR AFRICAN-AMERICAN > 60; GFR NON-AFRICAN AMERICAN > 60
--- NOTE | 2017-10-13 08:32 | CP.PCM.PCO ---
<Kai Matos - Last Filed: 10/13/17 08:32> Physician Communication Note - Physician Communication Note Physician Communication Note: WBC count elevated will hold Granix at this time. <Lenka Owens - Last Filed: 10/13/17 14:07> Attending/Attestation - Attestation I have personally seen and examined this patient.: Yes I have fully participated in the care of the patient.: Yes I have reviewed all pertinent clinical information: Yes
[2017-10-13] MEDS: POLYETHYLENE GLYCOL 3350 17 GM/Dose PACKET PO SCH ×2 (11:06→17:28)
[2017-10-13] MEDS: Megestrol Acetate 40 mg/ml Cup PO SCH (11:06)
[2017-10-13] MEDS: GRANIX SC SCH (17:29)
[2017-10-14] MEDS: guaiFENesin-Codeine 100-10mg/5ml Syrup (5 ml) UD PO SCH ×6 (00:05→20:44)
--- NOTE | 2017-10-14 01:11 | PN ---
Copied To: Lenka García MD Attending MD: Lenka García MD DATE: 10/13/2017 PULMONARY PROGRESS NOTE REFERRING PHYSICIAN: Lenka Owens MD SUBJECTIVE: He is lying in the bed, head at 45 degrees. Night was unremarkable. Mild cough, clear sputum. No nausea, vomiting or diarrhea. No leg pain or leg swelling. OBJECTIVE: GENERAL: In no acute distress. VITAL SIGNS: Temperature is 98, heart rate 62, respiratory rate is 22, blood pressure 94/58, pulse ox 96% on 2 liters nasal cannula. HEENT: Moist mucous membrane. No ulcer or thrush noted. NECK: Supple. No JVD. LUNGS: Have a fair airflow with rhonchi. HEART: S1 and S2. ABDOMEN: Soft, nontender. No organomegaly. EXTREMITIES: No edema. NEUROLOGIC: Awake and alert. Follows simple command. MEDICATIONS: He is on Benadryl 25 mg at bedtime p.r.n., sotalol 80 mg twice a day, Eliquis 5 mg twice a day, Megace 200 mg daily, MiraLax 17 g twice a day, oxycodone immediate release 5 mg every 6 hours p.r.n., Protonix 40 mg daily, Robitussin with codeine 5 mL every 4 hours, Tessalon Perles 100 mg every 8 hours, Xopenex inhaled every 6 hours. LABORATORY DATA: Shows hemoglobin 13.3, hematocrit 38.6, WBC 38,000, platelet is 241. Sodium 135, potassium 5.1, chloride 103, bicarbonate 27, BUN 23, creatinine 0.8, glucose 125, calcium 8.6, phosphorous 2.5, magnesium 2.2, total bilirubin 1.1, AST 50 ,ALT 155, alk phos is 74. Albumin is 2.7. IMPRESSION AND PLAN: Chronic obstructive lung disease, unresectable lung cancer with extensive disease involving spine and liver as a small cell type, paroxysmal atrial fibrillation, chronic lung disease, history of gastric ulcers. Pulmonary point of view, doing okay. Continue bronchodilator. Keep head at 45 degrees. Gastric prophylaxis. Oncology followup. Physical therapy. Out of bed to chair. Thank you and we will follow with you. Lenka García MD
[2017-10-14] MEDS: Levalbuterol 0.63 MG/3 ML Inhal Soln UD IH SCH ×4 (01:57→20:49)
[2017-10-14] MEDS: oxyCODONE 5 mg Immediate Release Tab PO PRN (03:33)
[2017-10-14] MEDS: Pantoprazole 40 mg EC Tab PO SCH (05:44)
--- NOTE | 2017-10-14 09:16 | CP.PCM.PN ---
Subjective - Date & Time of Evaluation Date of Evaluation: 10/14/17 Time of Evaluation: 09:12 - Subjective Subjective: Kai Matos DO PGY1 Internal Medicine Rheostat Assembler - Hospital Progress Note Pt. noted to have low BP overnight; No Dizziness, CP reported, did complain of a sohrt headache lasting for approx 1 minute. No other complaints voiced at this time. All questions answered. 12 system ROS otherwise unremarkable. Objective - Vital Signs/Intake and Output Vital Signs (last 24 hours): Temp Pulse Resp BP Pulse Ox 97.5 F L 62 22 94/58 L 96 10/13/17 16:00 10/13/17 17:27 10/13/17 16:00 10/13/17 17:27 10/13/17 16:00 Intake and Output: 10/14/17 10/14/17 06:59 18:59 Intake Total 360 Balance 360 - Medications Medications: Current Medications Apixaban (Eliquis) 5 mg PO BID FERNANDO PRN Reason: Protocol Last Admin: 10/13/17 17:28 Dose: 5 mg Benzonatate (Tessalon Perles) 100 mg PO Q8 FERNANDO PRN Reason: Protocol Last Admin: 10/14/17 07:09 Dose: Not Given Diphenhydramine HCl (Benadryl) 25 mg PO HS PRN; Protocol PRN Reason: Insomnia Last Admin: 10/13/17 02:06 Dose: 25 mg Guaifenesin/Codeine Phosphate (Robitussin W/Codeine) 5 ml PO Q4H FERNANDO PRN Reason: Protocol Last Admin: 10/14/17 03:33 Dose: 5 ml Home Med (Home Med) 1 unit SC DAILY FERNANDO Stop: 10/19/17 10:01 Last Admin: 10/13/17 17:29 Dose: 1 unit Levalbuterol HCl (Xopenex) 0.63 mg IH [id number] FERNANDO PRN Reason: Protocol Last Admin: 10/14/17 07:26 Dose: 0.63 mg Megestrol Acetate (Megace) 200 mg PO DAILY FERNANDO PRN Reason: Protocol Last Admin: 10/13/17 11:06 Dose: 200 mg Oxycodone HCl (Oxycodone Immediate Release Tab) 5 mg PO Q6H PRN; Protocol PRN Reason: Pain, moderate (4-7) Last Admin: 10/14/17 03:33 Dose: 5 mg Pantoprazole Sodium (Protonix Ec Tab) 40 mg PO 0600 FERNANDO PRN Reason: Protocol Last Admin: 10/14/17 05:44 Dose: 40 mg Polyethylene Glycol (Miralax) 17 gm PO BID FERNANDO PRN Reason: Protocol Last Admin: 10/13/17 17:28 Dose: 17 gm Sotalol HCl (Betapace) 80 mg PO BID FERNANDO PRN Reason: Protocol Last Admin: 10/13/17 17:27 Dose: Not Given - Labs Labs: 10/13/17 05:22 10/13/17 05:22 Physical Exam - Constitutional Appears: Well, Non-toxic, No Acute Distress, Cachectic - Head Exam Head Exam: ATRAUMATIC, NORMOCEPHALIC - Eye Exam Eye Exam: EOMI, Normal appearance, PERRL. absent: Scleral icterus - ENT Exam ENT Exam: Mucous Membranes Moist - Respiratory Exam Respiratory Exam: NORMAL BREATHING PATTERN Additional comments: RML/RLL crackles; minimal some ronchi - Cardiovascular Exam Cardiovascular Exam: REGULAR RHYTHM, RRR, +S1, +S2. absent: Systolic Murmur - GI/Abdominal Exam GI & Abdominal Exam: Normal Bowel Sounds, Soft. absent: Tenderness - Back Exam Back exam: absent: CVA tenderness (L), CVA tenderness (R) - Neurological Exam Neurological exam: Alert, CN II-XII Intact, Oriented x3 - Psychiatric Exam Psychiatric exam: Normal Affect, Normal Mood - Skin Skin Exam: Dry, Intact, Normal Color, Warm Assessment and Plan - Assessment and Plan (Free Text) Assessment: 76M PMH of GERD presented to [facility] [place] [facility] 09/24 on w/ SOB and productive cough subsequently found have postobstructive in the setting small cell lung cancer. Hospital course complicated by transaminitis and paroxysmal afib. Pulmonary Malignancy s/p CT guided biopsy CT chest 09/25: extensive mediastinal and hilar lymphadenopathy suspicious for underlying pulmonary malignancy. Lytic lesion at T7 consistent with metastatic disease. Scattered sclerotic lesions. Extensive R lower lobe pneumonia. Ct abd/ pelvis 09/25: scattered osteoblastic lesions in multiple vertebral bodies, posterior elements and ribs. Age-indeterminate fracture of L4 superior end-plate , may be acute and/or pathologic. Low density lesion in anterolateral liver, metastasis suspected. Ct head 09/27: no evidence of metastatic disease, no acute intracranial findings Bone scan 09/26: findings consistent with bony metastatic disease Patient underwent CT guided biopsy of lung mass on 10/01 complicated by pneumothorax now resolved; chest tube was placed due to pneumothorax and has now been removed Pathology of hilar mass - small cell lung CA Radiation as per Dr. Iqbal Patient has has completed first dose of chemo therapy. Cisplatin based therapy occurring Q28 days. Transaminitis - Resolving LFTs improved relative to initial presentation Hepatotoxic meds discontinued Ceftriaxone discontinued 10/05/17 GI consulted dipti Aguila appreciated Post-Obstructive Pneumonia -Resolving CXR on admission 09/25: extensive alveolar infiltrate in R lower lobe consistent with pneumonia Afebrile w/o WBC elevation; no complaints of cough C/w Xopenex as per pulm reccs C/w Robitussin+Codeine PRN and Tessalon perles PRN ID Following Pulm Following New-onset atrial fibrillation with rapid ventricular response Rapid response called on 09/26/17; pt had additional episode overnight that converted back to normal sinus rhythm spontaneously Continue Sotalol as per cardiology C/w anticoagulation w/ eliquis 5mg BID Cardio consulted (Dr. Chirinos), recs appreciated Electrolyte abnormalities HyperK/ Hypophos / Hyper mag Continue following levels; treat/replete as necessary Treat hypophos w/ sodium phos as to not upset other electrolyte balances Nephrology (Dr Barrera) has signed off DVT/GI ppx: SCD /Protonix Disposition plan: Patient has completed his first round of chemotherapy, and now in TCU for rehabilitation/ PT. Patient seen, examined, and case discussed w/ attending physician Dr. Graciela Matos DO PGY1 Internal Medicine Rheostat Assembler - Pager [phone]
[2017-10-14 09:20] LABS: EOS # 0.1 (0.0-0.7); EOS % 0.3 % (1.5-5.0); LYMPH # 0.4 (1.2-3.4); LYMPH % 1.6 % (22.0-35.0); MEAN CELL VOLUME 85.3 fl (80.0-105.0); MEAN PLATELET VOLUME 9.8 fl (7.0-11.0); MONO % 0.1 % (1.0-6.0); PLATELET COUNT 189 10^3/uL (120.0-450.0); RBC 4.48 10^6/uL (3.5-6.1); RED CELL DISTRIBUTION WIDTH 14.4 % (11.5-14.5); WHITE BLOOD COUNT 24.1 10^3/ul (4.5-11.0)
[2017-10-14 09:33] LABS: ALBUMIN 2.7 g/dL (3.0-4.8); ALT/SGPT 114 U/L (7-56); AST/SGOT 29 U/L (17-59); BLOOD UREA NITROGEN 21 mg/dL (7-21); CALCIUM 8.6 mg/dL (8.4-10.5); GFR AFRICAN-AMERICAN > 60; GFR NON-AFRICAN AMERICAN > 60
[2017-10-14] MEDS: Megestrol Acetate 40 mg/ml Cup PO SCH (10:02)
[2017-10-14] MEDS: POLYETHYLENE GLYCOL 3350 17 GM/Dose PACKET PO SCH ×2 (10:03→17:41)
[2017-10-14] MEDS: GRANIX SC SCH (10:22)
[2017-10-14 10:33] LABS: BAND 5 % (0-2); LYMPHOCYTE 5 % (22.0-35.0); MONOCYTE 1 % (1.0-6.0); NEUTROPHIL 88 % (50.0-70.0)
[2017-10-14 10:35] LABS: LARGE PLATELETS PRESENT; PLATELET ESTIMATE NORMAL (NORMAL)
--- NOTE | 2017-10-14 11:23 | PN ---
Copied To: Lenka García MD Attending MD: Lenka García MD DATE: 10/14/2017 PULMONARY PROGRESS NOTE REFERRING PHYSICIAN: Dr. Owens. SUBJECTIVE: He is lying in the bed, head at 45 degrees. Night was unremarkable. Feels better. Decreased cough, decreased shortness of breath. No nausea, vomiting or diarrhea. No leg pain, no leg swelling. Did take a walk with the therapist. OBJECTIVE: GENERAL: No acute distress. VITAL SIGNS: Temperature is 98, heart rate 62, respiratory rate is 22, blood pressure 94/58, pulse ox 96% on 2 liters nasal cannula. HEENT: Moist mucous membrane. No ulcer or thrush noted. NECK: Supple. No JVD. LUNGS: Have a fair airflow with rhonchi. HEART: S1, S2. ABDOMEN: Soft, nontender. No organomegaly. EXTREMITIES: No edema. NEUROLOGIC: Awake, alert. Follow simple commands. MEDICATIONS: He is on Benadryl 25 mg at bedtime p.r.n., sotalol 80 mg twice a day, Eliquis 5 mg twice a day, Megace 200 mg daily, MiraLax 17 g twice a day, oxycodone immediate release 5 mg every 6 hours p.r.n., Protonix 40 mg daily, Robitussin with codeine 5 mL every 4 hours, Tessalon Perles 100 mg every 8 hours, Xopenex inhaled every 6 hours. LABORATORY DATA: Shows hemoglobin 13, hematocrit 38.2, WBC 24,000, platelet count is 189. Sodium 133, potassium 4.4, chloride 101, bicarbonate 25, BUN 21, creatinine 0.7, glucose 153, calcium 8.6, phosphorus 2.6, magnesium 2.7, AST 29, ALT 114, alkaline phosphatase is 81, albumin is 2.7. IMPRESSION AND PLAN: Chronic obstructive lung disease, unresectable lung cancer with extensive disease involving spleen, liver as well as mediastinum, cell type is small cell; also has paroxysmal atrial fibrillation, chronic lung disease, gastric ulcers in the past. Pulmonary point of view, he is doing well. Continue bronchodilator, keep head at 45 degrees, chemotherapy. Gastric prophylaxis. Follow up EKG to assure what the cardiac rhythm is. We will follow with you. Lenka García MD [facility] # [id number]
--- NOTE | 2017-10-14 15:27 | CARD ---
APPROVED REPORT Date of service: 10/14/2017 EKG Measurement Heart [id number] <Conclusion> Normal sinus rhythm Normal ECG
[2017-10-15] MEDS: guaiFENesin-Codeine 100-10mg/5ml Syrup (5 ml) UD PO SCH ×7 (00:48→23:09)
[2017-10-15] MEDS: Levalbuterol 0.63 MG/3 ML Inhal Soln UD IH SCH ×5 (01:31→21:11)
[2017-10-15] MEDS: oxyCODONE 5 mg Immediate Release Tab PO PRN (04:11)
--- NOTE | 2017-10-15 04:43 | PN ---
Copied To: Dustin Lomeli MD Attending MD: Dustin Lomeli MD DATE: 10/15/2017 ONCOLOGY PROGRESS NOTE LOCATION: Patient is in room , bed 2, TCU. REFERRING PHYSICIAN: Kyra Velarde MD PROBLEMS: This is a 76-year-old male who was transferred to the TCU for deconditioning. 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 Patient also had paroxysmal atrial fibrillation, which was treated with beta-blockers and currently on Eliquis as well. Patient is on Granix post chemotherapy to prevent post mi sepsis. Subjectively, patient is feeling better. He is lying in bed at 45 degrees. Patient has decreased cough and decreased shortness of breath. No nausea, vomiting, or diarrhea. No leg pain or leg swelling. Patient did ambulate with the therapist today. PHYSICAL EXAMINATION: GENERAL: Patient is in no acute distress. VITAL SIGNS: Stable as stated in the chart. T-max is 98.4, heart rate is 62, respirations 20, blood pressure is 94/58, pulse ox is 96% on 2 liters of nasal cannula. HEENT: Head is normocephalic and atraumatic. Conjunctivae are pale. Sclerae are anicteric. Examination of the oropharynx reveals no oropharyngeal lesions. No ulcerations or thrush is noted. NECK: Supple. There is no adenopathy. No jugular venous distention noted. LUNGS: Relatively clear to percussion and auscultation. HEART: Reveals PMI to be in the fifth intercostal space, inside the midclavicular line. S1 and S2 are normal. No gallop or murmur is heard. ABDOMEN: Soft and nontender. Bowel sounds are present. No rebound, rigidity, or guarding is noted. EXTREMITIES: Reveal no cyanosis, clubbing, or edema. NEUROLOGIC: Reveals higher functions to be normal. No focal deficits are noted. GENITOURINARY AND RECTAL: Deferred. SKIN: Turgor is normal. No significant skin lesions are noted. MEDICATIONS: Patient's medications were reviewed and they are unchanged. He is on Benadryl 25 mg at bedtime, sotalol 80 mg b.i.d., Eliquis 5 b.i.d., Megace 200 mg daily, MiraLax 17 g twice a day, oxycodone immediate release 5 mg every 6 hours p.r.n., Protonix 40 mg daily, Robitussin with Codeine 5 mL every 4 hours p.r.n., Tessalon Perles 100 mg every 8 hours, Xopenex inhaled every 6 hours. LABORATORY DATA: Reveals the hemoglobin of 13, hematocrit 38, white count is 24,000, platelet count is 199. Sodium is 133, K is 4.4, chloride is 101, bicarbonate is 25, BUN is 21, creatinine 0.7, glucose 153, calcium is 8.6, phosphorus 2.6, magnesium is 2.7, AST is 29, ALT is 114, alkaline phosphatase is 81, albumin is 2.7. ASSESSMENT, NOTES AND PLAN: Patient has extensive small cell lung carcinoma, status post cytoreductive chemotherapy, currently on Granix to prevent post chemo mi sepsis. White count is elevated because of the Granix, but we will continue the Granix for a total period of 10-7 days as the anticipated mi is day #14 from the date the chemo completed. Patient also has chronic obstructive pulmonary disease for which he is on appropriate medication. He is on gastric and deep vein thrombosis prophylaxes as well as treatment for his atrial fibrillation. PLAN: Continue rehab for deconditioning in the TCU. Continue Granix for now, on gastric and DVT prophylaxes. Please make a note, this is a complex patient with multiple comorbid medical issues. Time spent with the patient was greater than 45 minutes, out of which more than 50% of the time was face to face encounter. Dustin Lomeli MD
[2017-10-15] MEDS: Pantoprazole 40 mg EC Tab PO SCH (06:32)
[2017-10-15 06:48] LABS: BASO # 0.13 K/mm3 (0.0-2.0); BASO % 0.9 % (0.0-3.0); EOS # 0.1 (0.0-0.7); EOS % 0.5 % (1.5-5.0); GRAN # 13.48 (1.4-6.5); GRAN % 94.7 % (50.0-68.0); HEMOGLOBIN 13.1 g/dL (14.0-18.0); LYMPH # 0.5 (1.2-3.4); LYMPH % 3.7 % (22.0-35.0); MEAN CORPUSCULAR HEMOGLOBIN 28.9 pg (25.0-35.0); MEAN CORPUSCULAR HGB CONC 33.9 g/dl (31.0-37.0); MEAN PLATELET VOLUME 10.6 fl (7.0-11.0); MONO % 0.2 % (1.0-6.0); RBC 4.54 10^6/uL (3.5-6.1); RED CELL DISTRIBUTION WIDTH 14.3 % (11.5-14.5); WHITE BLOOD COUNT 14.2 10^3/ul (4.5-11.0)
[2017-10-15 07:07] LABS: ALBUMIN 2.8 g/dL (3.0-4.8); ALT/SGPT 93 U/L (7-56); AST/SGOT 26 U/L (17-59); BLOOD UREA NITROGEN 21 mg/dL (7-21); CALCIUM 8.3 mg/dL (8.4-10.5); GFR AFRICAN-AMERICAN > 60; GFR NON-AFRICAN AMERICAN > 60
--- NOTE | 2017-10-15 08:51 | PN ---
Copied To: Dustin Lomeli MD Attending MD: Dustin Lomeli MD DATE: 10/14/2017 ONCOLOGY PROGRESS NOTE LOCATION: The patient is in room 313, bed 2. PROBLEM: This is a 76-year-old male of [place] origin, who was recently diagnosed with extensive small cell lung carcinoma, status post systemic chemotherapy, status post IV . Completed radiation to his right hilar region to alleviate obstruction of the right lower lobe. He is now transferred to the TCU for deconditioning and continued monitoring of his labs. The patient is also currently on anticoagulation because of spontaneous AFib which occurred when he was on the acute site. SUBJECTIVE: The patient is lying in bed, head end is 45 degrees. The patient tells me that he is able to walk more than 20 feet today with assistance. Night was unremarkable. The patient has mild cough with clear phlegm. No hemoptysis. No nausea or vomiting. No diarrhea. Feeling better. Appetite is good. No fevers. No chills. PHYSICAL EXAMINATION: GENERAL: The patient is in no acute distress. VITAL SIGNS: Stable. T-max is 98.4, heart rate is 62, respirations 22, blood pressure is 94/58 with pulse ox of 96% on 2 L of oxygen. HEENT: Head is normocephalic, atraumatic. Conjunctivae pale. Sclerae are anicteric. Pupils are equally reactive to light and accommodation. Examination of the oropharynx reveals no ulcerations. No evidence of any fungal infection or mucositis. NECK: Supple. There is no adenopathy. No jugular venous distention noted. LUNGS: Reveal it to be clear to percussion and auscultation without any adventitious rhonchi. HEART: Examination of the heart reveals PMI to be in the fifth intercostal space inside the midclavicular line. S1 and S2 are normal. No gallop or murmur is heard. ABDOMEN: Soft, nontender. Liver and spleen are not palpable. No rebound, rigidity, or guarding is noted. EXTREMITIES: There is no cyanosis, clubbing, or edema. NEUROLOGIC: Reveals higher functions to be normal. No focal deficits are noted. MEDICATIONS: The patient's medications were reviewed. He is on Benadryl 25 at bedtime, sotalol 80 mg twice a day, Eliquis 5 mg twice a day, Megace 200 mg daily, MiraLax 17 g p.o. b.i.d., oxycodone immediate release 5 mg every 6 hours p.r.n., Protonix 40 mg daily, Robitussin with Codeine 5 mL every 4 hours, Tessalon Perles every 8 hours, Xopenex inhaled every 6 hours. LABORATORY DATA: Lab data reviewed hemoglobin to be 13, hematocrit 38.6, white count 38,000, platelet count is 241. Sodium is 135, K is 5.1, chloride 103, bicarbonate 27. BUN of 23 with a creatinine of 0.8. Glucose of 125. Calcium is 8.6, phosphorus 2.5, magnesium is 2.2. Total bili is 1.1, AST of 50, ALT of 155, alkaline phosphatase 74. Albumin is 2.7. ASSESSMENT NOTES AND PLAN: The patient has extensive lung carcinoma. Just completed his systemic chemotherapy, carboplatin with Etoposide. Currently on Granix, we will continue the Granix despite his elevated count because of the anticipated fall over the next several days. We will continue Granix for a total of 7 days in regards of the white count. The patient has chronic obstructive lung disease, for which he is on multiple bronchodilations under the supervision of Dr. García. The patient has extensive disease involving the spine, liver . The patient will continue his bronchodilators. Continue his anticoagulation. Keep the head end at 45 degrees. Gastric prophylaxis. We will continue to monitor him while in the TCU to watch out for any untoward side effects. the middle and end of this week post chemotherapy given last week. The patient's questions were answered to the best of my ability. Time spent with the patient greater than 45 minutes, out of which more than 50% of the time was spent in [id number] encounter. Dustin Lomeli MD
[2017-10-15] MEDS: Megestrol Acetate 40 mg/ml Cup PO SCH (10:52)
[2017-10-15] MEDS: POLYETHYLENE GLYCOL 3350 17 GM/Dose PACKET PO SCH ×2 (10:53→17:31)
[2017-10-15] MEDS: GRANIX SC SCH (12:06)
--- NOTE | 2017-10-15 14:18 | CP.PCM.PN ---
Subjective - Date & Time of Evaluation Date of Evaluation: 10/15/17 Time of Evaluation: 14:12 - Subjective Subjective: Sobeida Dukes, PGY2, Heme-Onc Progress Note for Dr Lomeli: This is a 76 year old male with PMH gastric ulcer, gastritis, admitted for pneumonia, found to have small cell lung carcinoma with extensive mediastinal and hilar adenopathy and lytic lesions at T7, other vertebral bodies and liver mets, s/p radiation treatments and 3 chemotherapy sessions. Patient received his last session of radiation this AM. No acute events overnight. Patient reports that his cough is present, sometimes with yellowish sputum, denies hemoptysis. Patient reports that his appetite is better, ate 70-80% of his breakfast. States that his pain in 2-3/10, controlled with pain meds. Denies mouth sores, fevers, chills, nausea, vomiting, abdominal pain, easy bruising. As per PT notes, patient will need home O2. Objective - Vital Signs/Intake and Output Vital Signs (last 24 hours): Temp Pulse Resp BP Pulse Ox 98.4 F 85 20 109/76 94 L 10/14/17 16:00 10/15/17 10:52 10/14/17 16:00 10/15/17 10:52 10/14/17 16:00 - Medications Medications: Current Medications Apixaban (Eliquis) 5 mg PO BID FERNANDO PRN Reason: Protocol Last Admin: 10/15/17 10:52 Dose: 5 mg Benzonatate (Tessalon Perles) 100 mg PO Q8 FERNANDO PRN Reason: Protocol Last Admin: 10/15/17 08:50 Dose: Not Given Diphenhydramine HCl (Benadryl) 25 mg PO HS PRN; Protocol PRN Reason: Insomnia Last Admin: 10/14/17 21:35 Dose: 25 mg Guaifenesin/Codeine Phosphate (Robitussin W/Codeine) 5 ml PO Q4H FERNANDO PRN Reason: Protocol Last Admin: 10/15/17 12:09 Dose: 5 ml Home Med (Home Med) 1 unit SC DAILY FERNANDO Stop: 10/19/17 10:01 Last Admin: 10/15/17 12:06 Dose: 1 unit Levalbuterol HCl (Xopenex) 0.63 mg IH [id number] FERNANDO PRN Reason: Protocol Last Admin: 10/15/17 07:28 Dose: 0.63 mg Megestrol Acetate (Megace) 200 mg PO DAILY FERNANDO PRN Reason: Protocol Last Admin: 10/15/17 10:52 Dose: 200 mg Oxycodone HCl (Oxycodone Immediate Release Tab) 5 mg PO Q6H PRN; Protocol PRN Reason: Pain, moderate (4-7) Last Admin: 10/15/17 04:11 Dose: 5 mg Pantoprazole Sodium (Protonix Ec Tab) 40 mg PO 0600 FERNANDO PRN Reason: Protocol Last Admin: 10/15/17 06:32 Dose: 40 mg Polyethylene Glycol (Miralax) 17 gm PO BID FERNANDO PRN Reason: Protocol Last Admin: 10/15/17 10:53 Dose: 17 gm Sotalol HCl (Betapace) 80 mg PO BID FERNANDO PRN Reason: Protocol Last Admin: 10/15/17 10:52 Dose: 80 mg - Labs Labs: 10/15/17 06:30 10/15/17 06:30 - Additional Findings Additional findings: - Constitutional Appears: Older Than Stated Age, Chronically Ill - Head Exam Head Exam: ATRAUMATIC, NORMOCEPHALIC - Eye Exam Eye Exam: EOMI, PERRL. absent: Conjunctival injection, Nystagmus, Scleral icterus Pupil Exam: NORMAL ACCOMODATION, PERRL. absent: Miosis, Mydriatic, Unequal - ENT Exam ENT Exam: Mucous Membranes Moist - Neck Exam Neck Exam: Full ROM - Respiratory Exam Respiratory Exam: Decreased Breath Sounds - Cardiovascular Exam Cardiovascular Exam: RRR, +S1, +S2. absent: Murmur right sided chest port in place - GI/Abdominal Exam GI & Abdominal Exam: Soft, Normal Bowel Sounds. absent: Guarding, Rigid, Tenderness, Mass, Organomegaly, Rebound - Extremities Exam Extremities Exam: Normal Inspection. absent: Calf Tenderness, Pedal Edema - Back Exam Back Exam: NORMAL INSPECTION - Neurological Exam Neurological Exam: Alert, Awake, Oriented x3 - Psychiatric Exam Psychiatric exam: Normal Affect, Normal Mood - Skin Skin Exam: Dry, Normal Color, Warm Assessment and Plan - Assessment and Plan (Free Text) Assessment: 76 year old male with PMH gastric ulcer, gastritis, admitted for RLL pneumonia, found to have small cell lung cancer with extensive mediastinal and hilar adenopathy and lytic lesions at T7, other vertebral bodies and liver mets, s/p radiation treatments with Dr Iqbal and 3 sessions of chemotherapy: Small cell lung cancer with metastasis to bone, liver, s/p radiation and chemo session New onset afib Constipation, resolved RLL pneumonia Transaminitis 2/2 likely medication (rocephin) induced Chemotherapy - carboplatin and etoposide Deconditioning s/p chemo - c/w miralax bid. - c/w Megace - pathology report of hilar mass 10/02 showed small cell lung carcinoma - On eliquis 5 mg BID and sotalol for afib. as per cardio and primary team - completed 3/3 chemotherapy sessions with carboplatin and etoposide, last session 10/11 - For home O2 use, consulted Physical therapy for evaluation/6 minute walk test , passed it. Encourage primary team to follow up results, reach out to Dr García for further recs. - Abd US showed increased echogenicity of liver parenchyma, 2 separate hypoechoic lesions. 2x1.3 cm in diameter. fatty infiltration - transaminitis improving - Give Neupogen 400 mg sq for total of 7 days, D4/7. - monitor Case discussed with Dr Lomeli.
--- NOTE | 2017-10-15 14:20 | CP.PCM.PN ---
Subjective - Date & Time of Evaluation Date of Evaluation: 10/15/17 Time of Evaluation: 13:25 - Subjective Subjective: S&E at bedside, chart reviewed, had RT this am. No acute overnight events. Patient denies N/V or abdominal pain. Reports having BM , no diarrhea or bleeding. Occasional cough, no hemoptysis. Objective - Vital Signs/Intake and Output Vital Signs (last 24 hours): Temp Pulse Resp BP Pulse Ox 98.4 F 85 20 109/76 94 L 10/14/17 16:00 10/15/17 10:52 10/14/17 16:00 10/15/17 10:52 10/14/17 16:00 - Medications Medications: Current Medications Apixaban (Eliquis) 5 mg PO BID FERNANDO PRN Reason: Protocol Last Admin: 10/15/17 10:52 Dose: 5 mg Benzonatate (Tessalon Perles) 100 mg PO Q8 FERNANDO PRN Reason: Protocol Last Admin: 10/15/17 08:50 Dose: Not Given Diphenhydramine HCl (Benadryl) 25 mg PO HS PRN; Protocol PRN Reason: Insomnia Last Admin: 10/14/17 21:35 Dose: 25 mg Guaifenesin/Codeine Phosphate (Robitussin W/Codeine) 5 ml PO Q4H FERNANDO PRN Reason: Protocol Last Admin: 10/15/17 12:09 Dose: 5 ml Home Med (Home Med) 1 unit SC DAILY FERNANDO Stop: 10/19/17 10:01 Last Admin: 10/15/17 12:06 Dose: 1 unit Levalbuterol HCl (Xopenex) 0.63 mg IH [id number] FERNANDO PRN Reason: Protocol Last Admin: 10/15/17 14:11 Dose: 0.63 mg Megestrol Acetate (Megace) 200 mg PO DAILY FERNANDO PRN Reason: Protocol Last Admin: 10/15/17 10:52 Dose: 200 mg Oxycodone HCl (Oxycodone Immediate Release Tab) 5 mg PO Q6H PRN; Protocol PRN Reason: Pain, moderate (4-7) Last Admin: 10/15/17 04:11 Dose: 5 mg Pantoprazole Sodium (Protonix Ec Tab) 40 mg PO 0600 FERNANDO PRN Reason: Protocol Last Admin: 10/15/17 06:32 Dose: 40 mg Polyethylene Glycol (Miralax) 17 gm PO BID FERNANDO PRN Reason: Protocol Last Admin: 10/15/17 10:53 Dose: 17 gm Sotalol HCl (Betapace) 80 mg PO BID FERNANDO PRN Reason: Protocol Last Admin: 10/15/17 10:52 Dose: 80 mg - Labs Labs: 10/15/17 06:30 10/15/17 06:30 - Constitutional Appears: No Acute Distress - Head Exam Head Exam: NORMOCEPHALIC - Eye Exam Eye Exam: Normal appearance. absent: Scleral icterus - ENT Exam ENT Exam: Mucous Membranes Moist - Neck Exam Neck Exam: Normal Inspection - Respiratory Exam Respiratory Exam: NORMAL BREATHING PATTERN. absent: Respiratory Distress - Cardiovascular Exam Cardiovascular Exam: +S1, +S2 - GI/Abdominal Exam GI & Abdominal Exam: Soft, Normal Bowel Sounds. absent: Guarding, Tenderness, Rebound - Extremities Exam Extremities Exam: absent: Calf Tenderness, Pedal Edema - Neurological Exam Neurological Exam: Alert, Awake, Oriented x3 - Skin Skin Exam: Dry, Warm Assessment and Plan - Assessment and Plan (Free Text) Assessment: Assessment: Resolving Abnormal LFTs,Differential include decompensation in light of liver metastases, DILI with recent initiation of Ceftriaxone or possible compression of hepatic vasculature as a result of metastatic disease Non-small cell lung cancer with metastasis, RT and chemo, s/p 3 doses H/O Paroxsymal Atrial Fibrillation Plan: continue to monitor LFTs, continue show downward trend continue PPI continue diet as tolerated on Eliquis on Miralax BID Patient refusing MRI, claustrophobic on Radiation treatment as per oncology Patient LFT continue to improve, no planned GI interventions, will currently sign off, please reconsult as needed. Thank you for allowing us to participate in your patient care. Discussed w/ Dr. Downey covering Dr. Bynum.
--- NOTE | 2017-10-15 22:08 | PN ---
Copied To: Lenka García MD Attending MD: Lenka García MD DATE: 10/15/2017 PULMONARY PROGRESS NOTE REFERRING PHYSICIAN: Lenka Owens MD SUBJECTIVE: The patient is lying in the bed at 45 degrees. Family is at bedside. Night was unremarkable. Finished off his radiation therapy. Not much cough. No sputum production. No nausea, vomiting, diarrhea, leg pain or leg swelling. Doing well in physical therapy. OBJECTIVE: GENERAL: In no acute distress. VITAL SIGNS: Temperature is 98, heart rate is 83, respiratory rate is 20, blood pressure 109/76, pulse ox 98% of 2 liters nasal cannula. HEENT: Moist mucous membrane. Crowded airway. NECK: Supple. No JVD. LUNGS: Fair airflow with few rhonchi. HEART: S1 and S2. ABDOMEN: Soft, nontender, no organomegaly. EXTREMITIES: No edema. NEUROLOGIC: Awake and alert, follows simple command. MEDICATIONS: He is on Benadryl 25 mg at bedtime p.r.n., sotalol 80 mg twice a day, Eliquis 5 mg twice a day, Megace 200 mg daily, MiraLax 17 g twice a day, oxycodone immediate release 5 mg every 6 hours p.r.n., Protonix 40 mg daily, Robitussin with codeine 5 mL every 4 hours, Tessalon Perles 100 mg every 8 hours, Xopenex 0.63 every 6 hours. IMPRESSION AND PLAN: Unresectable small cell lung cancer status post radiation therapy, completed first round of chemotherapy; history of paroxysmal atrial fibrillation; history of pneumothorax; hemothorax; chronic lung disease. Overall doing well. An EKG done for followup which shows normal sinus rhythm. Spoke to family. All the questions answered. Thank you and we will follow with you. Lenka García MD
[2017-10-16] MEDS: Levalbuterol 0.63 MG/3 ML Inhal Soln UD IH SCH ×4 (01:56→18:00)
[2017-10-16] MEDS: guaiFENesin-Codeine 100-10mg/5ml Syrup (5 ml) UD PO SCH ×5 (03:04→21:23)
[2017-10-16] MEDS: oxyCODONE 5 mg Immediate Release Tab PO PRN (03:10)
[2017-10-16] MEDS: Pantoprazole 40 mg EC Tab PO SCH (05:25)
--- NOTE | 2017-10-16 07:03 | CP.PCM.PN ---
<Kai Matos - Last Filed: 10/16/17 18:51> Subjective - Date & Time of Evaluation Date of Evaluation: 10/16/17 Time of Evaluation: 07:01 - Subjective Subjective: Kai Matos DO PGY1 Internal Medicine [employer] - Hospital Progress Note Patient seen and examined at bedside. No issues over night; still has productive cough. Will consider adding adjuvant cough medicaiton. Completed radiation yesterday; next radiation is scheduled Patient had issue getting Granix today; It was eventually administered however moving forward, there may be issues getting future doses of medications. Objective - Vital Signs/Intake and Output Vital Signs (last 24 hours): Temp Pulse Resp BP Pulse Ox 97.8 F 85 20 109/76 98 10/15/17 10:00 10/15/17 10:52 10/15/17 10:00 10/15/17 10:52 10/15/17 10:00 Intake and Output: 10/16/17 10/16/17 06:59 18:59 Intake Total 360 Balance 360 - Medications Medications: Current Medications Apixaban (Eliquis) 5 mg PO BID FERNANDO PRN Reason: Protocol Last Admin: 10/15/17 17:31 Dose: 5 mg Benzonatate (Tessalon Perles) 100 mg PO Q8 FERNANDO PRN Reason: Protocol Last Admin: 10/16/17 05:25 Dose: 100 mg Diphenhydramine HCl (Benadryl) 25 mg PO HS PRN; Protocol PRN Reason: Insomnia Last Admin: 10/16/17 03:05 Dose: 25 mg Guaifenesin/Codeine Phosphate (Robitussin W/Codeine) 5 ml PO Q4H FERNANDO PRN Reason: Protocol Last Admin: 10/16/17 03:04 Dose: 5 ml Home Med (Home Med) 1 unit SC DAILY FERNANDO Stop: 10/19/17 10:01 Last Admin: 10/15/17 12:06 Dose: 1 unit Levalbuterol HCl (Xopenex) 0.63 mg IH [id number] FERNANDO PRN Reason: Protocol Last Admin: 10/16/17 01:56 Dose: 0.63 mg Megestrol Acetate (Megace) 200 mg PO DAILY FERNANDO PRN Reason: Protocol Last Admin: 10/15/17 10:52 Dose: 200 mg Oxycodone HCl (Oxycodone Immediate Release Tab) 5 mg PO Q6H PRN; Protocol PRN Reason: Pain, moderate (4-7) Last Admin: 10/16/17 03:10 Dose: 5 mg Pantoprazole Sodium (Protonix Ec Tab) 40 mg PO 0600 FERNANDO PRN Reason: Protocol Last Admin: 10/16/17 05:25 Dose: 40 mg Polyethylene Glycol (Miralax) 17 gm PO BID FERNANDO PRN Reason: Protocol Last Admin: 10/15/17 17:31 Dose: Not Given Sotalol HCl (Betapace) 80 mg PO BID FERNANDO PRN Reason: Protocol Last Admin: 10/15/17 17:31 Dose: Not Given - Labs Labs: 10/15/17 06:30 10/15/17 06:30 Physical Exam - Constitutional Appears: Well, Non-toxic, No Acute Distress, Cachectic - Head Exam Head Exam: ATRAUMATIC, NORMOCEPHALIC - Eye Exam Eye Exam: EOMI, Normal appearance, PERRL. absent: Scleral icterus - ENT Exam ENT Exam: Mucous Membranes Moist - Respiratory Exam Respiratory Exam: NORMAL BREATHING PATTERN Additional comments: Lungs sound much improved relative to 1-2 weeks prior. Very faint crackles in RLL chacon L lung chacon CTA - Cardiovascular Exam Cardiovascular Exam: REGULAR RHYTHM, RRR, +S1, +S2. absent: Systolic Murmur - GI/Abdominal Exam GI & Abdominal Exam: Normal Bowel Sounds, Soft. absent: Tenderness - Back Exam Back exam: absent: CVA tenderness (L), CVA tenderness (R) - Neurological Exam Neurological exam: Alert, CN II-XII Intact, Oriented x3 - Psychiatric Exam Psychiatric exam: Normal Affect, Normal Mood - Skin Skin Exam: Dry, Intact, Normal Color, Warm Assessment and Plan - Assessment and Plan (Free Text) Assessment: 76M PMH of GERD presented to [facility] [place] on w/ SOB and productive cough subsequently found have postobstructive in the setting small cell lung cancer. Hospital course complicated by transaminitis and paroxysmal afib. Pulmonary Malignancy s/p CT guided biopsy CT chest 09/25: extensive mediastinal and hilar lymphadenopathy suspicious for underlying pulmonary malignancy. Lytic lesion at T7 consistent with metastatic disease. Scattered sclerotic lesions. Extensive R lower lobe pneumonia. Ct abd/ pelvis 09/25: scattered osteoblastic lesions in multiple vertebral bodies, posterior elements and ribs. Age-indeterminate fracture of L4 superior end-plate , may be acute and/or pathologic. Low density lesion in anterolateral liver, metastasis suspected. Ct head 09/27: no evidence of metastatic disease, no acute intracranial findings Bone scan 09/26: findings consistent with bony metastatic disease Patient underwent CT guided biopsy of lung mass on 10/01 complicated by pneumothorax now resolved; chest tube was placed due to pneumothorax and has now been removed Pathology of hilar mass - small cell lung CA Radiation completed at this time; Last dose was 10/15 Patient has has completed first round of chemo therapy. Cisplatin based therapy occurring Q28 days. Currently receiving granix as per Dr. Lomeli Transaminitis - Resolving LFTs are continuing to trend down; AST normalized; ALT 71 Hepatotoxic meds discontinued Ceftriaxone discontinued 10/05/[address] Bynum, recs appreciated Post-Obstructive Pneumonia -Resolving CXR on admission 09/25: extensive alveolar infiltrate in R lower lobe consistent with pneumonia Afebrile w/o WBC elevation; no complaints of cough C/w Xopenex as per pulm reccs C/w Robitussin+Codeine PRN and Tessalon perles PRN ID Following Pulm Following New-onset atrial fibrillation with rapid ventricular response Rapid response called on 09/26/17; pt had additional episode overnight that converted back to normal sinus rhythm spontaneously Continue Sotalol as per cardiology C/w anticoagulation w/ eliquis 5mg BID Cardio consulted (Dr. Chirinos), recs appreciated Electrolyte abnormalities HyperK/ Hypophos / Hyper mag Continue following levels; treat/replete as necessary Treat hypophos w/ sodium phos as to not upset other electrolyte balances Nephrology (Dr Barrera) has signed off DVT/GI ppx: SCD /Protonix Disposition plan: Patient has completed his first round of chemotherapy, and now in TCU for rehabilitation/ PT. Patient seen, examined, and case discussed w/ attending physician Dr. Graciela Matos DO PGY1 Internal Medicine [employer] - Pager [phone] <Tru Larkin - Last Filed: 10/17/17 07:18> Objective - Vital Signs/Intake and Output Vital Signs (last 24 hours): Temp Pulse Resp BP Pulse Ox 97.6 F 72 20 95/58 L 97 10/16/17 16:00 10/16/17 17:26 10/16/17 16:00 10/16/17 17:26 10/16/17 16:00 Intake and Output: 10/17/17 10/17/17 06:59 18:59 Intake Total 360 Balance 360 - Medications Medications: Current Medications Apixaban (Eliquis) 5 mg PO BID FERNANDO PRN Reason: Protocol Last Admin: 10/16/17 17:26 Dose: 5 mg Benzonatate (Tessalon Perles) 100 mg PO Q8 FERNANDO PRN Reason: Protocol Last Admin: 10/17/17 05:00 Dose: 100 mg Diphenhydramine HCl (Benadryl) 25 mg PO HS PRN; Protocol PRN Reason: Insomnia Last Admin: 10/17/17 00:43 Dose: 25 mg Guaifenesin/Codeine Phosphate (Robitussin W/Codeine) 5 ml PO Q4H FERNANDO PRN Reason: Protocol Last Admin: 10/17/17 04:57 Dose: 5 ml Home Med (Home Med) 1 unit SC DAILY FERNANDO Stop: 10/19/17 10:01 Last Admin: 10/16/17 17:58 Dose: 1 unit Levalbuterol HCl (Xopenex) 0.63 mg IH [id number] FERNANDO PRN Reason: Protocol Last Admin: 10/17/17 07:06 Dose: 0.63 mg Megestrol Acetate (Megace) 200 mg PO DAILY FERNANDO PRN Reason: Protocol Last Admin: 10/16/17 09:56 Dose: 200 mg Oxycodone HCl (Oxycodone Immediate Release Tab) 5 mg PO Q6H PRN; Protocol PRN Reason: Pain, moderate (4-7) Last Admin: 10/17/17 00:43 Dose: 5 mg Pantoprazole Sodium (Protonix Ec Tab) 40 mg PO 0600 FERNANDO PRN Reason: Protocol Last Admin: 10/17/17 05:00 Dose: 40 mg Polyethylene Glycol (Miralax) 17 gm PO BID FERNANDO PRN Reason: Protocol Last Admin: 10/16/17 17:27 Dose: 17 gm Sotalol HCl (Betapace) 80 mg PO BID FERNANDO PRN Reason: Protocol Last Admin: 10/16/17 17:26 Dose: Not Given - Labs Labs: 10/17/17 06:00 10/17/17 06:00 Attending/Attestation - Attestation I have personally seen and examined this patient.: Yes I have fully participated in the care of the patient.: Yes I have reviewed all pertinent clinical information, including history, physical exam and plan: Yes Notes (Text): 10/16/17 76 year old male with past medical history of prior tobacco use who presented with complaint of cough and shortness of breath. CT chest study showed right lower lobe pneumonia, diffuse moderatee mediastianal MYA and extrapulmonary lesions suggestive of metastatic process. CT abd/pelvis showed liver lesion and possible lumbar spine metastasis. Patient had lung biopsy which showed small cell carcinoma. Patient is started on chemotherapy and radiation. He is on granix for leukopenia. Hematology/oncology is following. Will continue to monitor closely. He is also on eliquis and sotalol (with bp holding parameters) for paroxysmal afib. Continue with physical therapy while in TCU. Tru Larkin MD Hospitalist.
--- NOTE | 2017-10-16 08:29 | PN ---
Copied To: Mitch Downey MD Attending MD: Mitch Downey MD ADDENDUM DATE: 10/15/2017 SUBJECTIVE: I have seen the patient. I agree with Myra Morton' assessment and plan. The patient has elevated liver enzymes secondary to liver metastasis. He has a history of [id number] lung cancer. His overall prognosis is poor. We would continue supportive care. Mitch Downey MD : 10/15/2017 18:19:47
[2017-10-16] MEDS: Megestrol Acetate 40 mg/ml Cup PO SCH (09:56)
[2017-10-16] MEDS: POLYETHYLENE GLYCOL 3350 17 GM/Dose PACKET PO SCH ×2 (09:56→17:27)
[2017-10-16 11:49] LABS: BASO # 0.05 K/mm3 (0.0-2.0); BASO % 1.8 % (0.0-3.0); EOS # 0.1 (0.0-0.7); EOS % 2.2 % (1.5-5.0); GRAN # 2.2 (1.4-6.5); GRAN % 78.7 % (50.0-68.0); HEMOGLOBIN 12.5 g/dL (14.0-18.0); LYMPH # 0.4 (1.2-3.4); LYMPH % 15.1 % (22.0-35.0); MEAN CELL VOLUME 84.9 fl (80.0-105.0); MEAN CORPUSCULAR HEMOGLOBIN 28.7 pg (25.0-35.0); MEAN CORPUSCULAR HGB CONC 33.8 g/dl (31.0-37.0); MEAN PLATELET VOLUME 9.8 fl (7.0-11.0); MONO # 0.1 (0.1-0.6); MONO % 2.2 % (1.0-6.0); RBC 4.36 10^6/uL (3.5-6.1); RED CELL DISTRIBUTION WIDTH 14.2 % (11.5-14.5)
[2017-10-16 11:56] LABS: WHITE BLOOD COUNT 2.8 10^3/ul (4.5-11.0)
[2017-10-16 12:20] LABS: ALBUMIN 2.9 g/dL (3.0-4.8); ALT/SGPT 71 U/L (7-56); AST/SGOT 22 U/L (17-59); BLOOD UREA NITROGEN 22 mg/dL (7-21); CALCIUM 8.2 mg/dL (8.4-10.5); GFR AFRICAN-AMERICAN > 60; GFR NON-AFRICAN AMERICAN > 60
[2017-10-16] MEDS: GRANIX SC SCH (17:58)
--- NOTE | 2017-10-16 18:30 | CP.PCM.PN ---
Subjective - Date & Time of Evaluation Date of Evaluation: 10/16/17 Time of Evaluation: 10:00 - Subjective Subjective: Sobeida Dukes, PGY2, Heme-Onc Progress Note for Dr Lomeli: This is a 76 year old male with PMH gastric ulcer, gastritis, admitted for pneumonia, found to have small cell lung carcinoma with extensive mediastinal and hilar adenopathy and lytic lesions at T7, other vertebral bodies and liver mets, s/p 10 radiation treatments and 3 chemotherapy sessions. Patient seen and examined at bedside. No acute events overnight. Patient reports that he very seldomly get the cough with white sputum now. Patient reports that his appetite is better, is eating well (home made food). States that his pain in 2-05/12, controlled with pain meds. Denies mouth sores, hemoptysis, fevers, chills, nausea, vomiting, abdominal pain, easy bruising. Objective - Vital Signs/Intake and Output Vital Signs (last 24 hours): Temp Pulse Resp BP Pulse Ox 97.6 F 72 20 95/58 L 97 10/16/17 16:00 10/16/17 17:26 10/16/17 16:00 10/16/17 17:26 10/16/17 16:00 Intake and Output: 10/16/17 10/16/17 06:59 18:59 Intake Total 360 360 Balance 360 360 - Medications Medications: Current Medications Apixaban (Eliquis) 5 mg PO BID FERNANDO PRN Reason: Protocol Last Admin: 10/16/17 17:26 Dose: 5 mg Benzonatate (Tessalon Perles) 100 mg PO Q8 FERNANDO PRN Reason: Protocol Last Admin: 10/16/17 13:44 Dose: 100 mg Diphenhydramine HCl (Benadryl) 25 mg PO HS PRN; Protocol PRN Reason: Insomnia Last Admin: 10/16/17 03:05 Dose: 25 mg Guaifenesin/Codeine Phosphate (Robitussin W/Codeine) 5 ml PO Q4H FERNANDO PRN Reason: Protocol Last Admin: 10/16/17 16:27 Dose: 5 ml Home Med (Home Med) 1 unit SC DAILY FERNANDO Stop: 10/19/17 10:01 Last Admin: 10/16/17 17:58 Dose: 1 unit Levalbuterol HCl (Xopenex) 0.63 mg IH [id number] FERNANDO PRN Reason: Protocol Last Admin: 10/16/17 13:35 Dose: 0.63 mg Megestrol Acetate (Megace) 200 mg PO DAILY FERNANDO PRN Reason: Protocol Last Admin: 10/16/17 09:56 Dose: 200 mg Oxycodone HCl (Oxycodone Immediate Release Tab) 5 mg PO Q6H PRN; Protocol PRN Reason: Pain, moderate (4-7) Last Admin: 10/16/17 03:10 Dose: 5 mg Pantoprazole Sodium (Protonix Ec Tab) 40 mg PO 0600 FERNANDO PRN Reason: Protocol Last Admin: 10/16/17 05:25 Dose: 40 mg Polyethylene Glycol (Miralax) 17 gm PO BID FERNANDO PRN Reason: Protocol Last Admin: 10/16/17 17:27 Dose: 17 gm Sotalol HCl (Betapace) 80 mg PO BID FERNANDO PRN Reason: Protocol Last Admin: 10/16/17 17:26 Dose: Not Given - Labs Labs: 10/16/17 11:35 10/16/17 11:35 - Additional Findings Additional findings: - Constitutional Appears: Older Than Stated Age, Chronically Ill - Head Exam Head Exam: ATRAUMATIC, NORMOCEPHALIC - Eye Exam Eye Exam: EOMI, PERRL. absent: Conjunctival injection, Nystagmus, Scleral icterus Pupil Exam: NORMAL ACCOMODATION, PERRL. absent: Miosis, Mydriatic, Unequal - ENT Exam ENT Exam: Mucous Membranes Moist - Neck Exam Neck Exam: Full ROM - Respiratory Exam Respiratory Exam: Decreased Breath Sounds - Cardiovascular Exam Cardiovascular Exam: RRR, +S1, +S2. absent: Murmur right sided chest port in place - GI/Abdominal Exam GI & Abdominal Exam: Soft, Normal Bowel Sounds. absent: Guarding, Rigid, Tenderness, Mass, Organomegaly, Rebound - Extremities Exam Extremities Exam: Normal Inspection. absent: Calf Tenderness, Pedal Edema - Back Exam Back Exam: NORMAL INSPECTION - Neurological Exam Neurological Exam: Alert, Awake, Oriented x3 - Psychiatric Exam Psychiatric exam: Normal Affect, Normal Mood - Skin Skin Exam: Dry, Normal Color, Warm Assessment and Plan - Assessment and Plan (Free Text) Assessment: 76 year old male with PMH gastric ulcer, gastritis, admitted for RLL pneumonia, found to have small cell lung cancer with extensive mediastinal and hilar adenopathy and lytic lesions at T7, other vertebral bodies and liver mets, s/p radiation treatments with Dr Iqbal and 3 sessions of chemotherapy. Patient transferred to TCU for rehab. Patient found to be leukopenic this AM, ANC 1.8: Small cell lung cancer with metastasis to bone, liver, s/p radiation and chemo session New onset afib Constipation, resolved RLL pneumonia Transaminitis 2/2 likely medication (rocephin) induced Chemotherapy - carboplatin and etoposide Deconditioning s/p chemo - c/w miralax bid. - c/w Megace - pathology report of hilar mass 10/02 showed small cell lung carcinoma - On eliquis 5 mg BID and sotalol for afib. as per cardio and primary team - completed 3/3 chemotherapy sessions with carboplatin and etoposide, last session 10/11 - Will need home oxygen - Abd US showed increased echogenicity of liver parenchyma, 2 separate hypoechoic lesions. 2x1.3 cm in diameter. fatty infiltration - transaminitis improving - Give Neupogen 400 mg sq daily, Day 5. May extend to 14 days, if patient wbc count remains low. - monitor daily cbc Case discussed with Dr Lomeli.
--- NOTE | 2017-10-16 19:19 | PN ---
Copied To: Lenka García MD Attending MD: Lenka García MD DATE: 10/16/2017 PULMONARY PROGRESS NOTE REFERRING PHYSICIAN: Lenka Owens MD. SUBJECTIVE: The patient is lying in the bed, head at 45 degrees. Family is at bedside. Night was unremarkable. Doing well in therapy. No headache. No rhinitis. No nausea. No vomiting, diarrhea, leg pain, leg swelling. OBJECTIVE: GENERAL: In no acute distress. VITAL SIGNS: Temperature is 98, heart rate is 62, respiratory rate is 18, blood pressure 97/55, pulse ox 98% on 2 L nasal cannula. HEENT: Moist mucous membrane. No ulcer or thrush noted. NECK: Supple. No JVD. LUNGS: Have a fair airflow with rhonchi. HEART: S1 and S2. ABDOMEN: Soft, nontender. No organomegaly. EXTREMITIES: No edema. NEUROLOGICAL: Awake and alert. Follows simple command. MEDICATIONS: He is on Benadryl 25 mg at bedtime p.r.n., sotalol 80 mg twice a day, Eliquis 5 mg twice a day, Megace 200 mg daily, MiraLax 17 g twice a day, oxycodone 5 mg every 6 hours p.r.n., Protonix 40 mg daily, Robitussin with Codeine every 4 hours, Tessalon Perles 100 mg every 8 hours, Xopenex inhaled every 6 hours. LABORATORY DATA: Shows hemoglobin 12.5, hematocrit 37, WBC 2.8, platelet count is 146. Sodium 133, potassium 4.6, chloride 100, bicarbonate 26, BUN 22, creatinine 0.7, glucose 123, calcium 8.2, AST 22, ALT 71, alk phos is 79. Albumin is 2.9. IMPRESSION AND PLAN: Unresectable small lung cancer with metastasis, status post chemotherapy and radiation therapy; chronic obstructive lung disease; status post pneumothorax; also has hemoptysis, much improved; has activities of daily living dysfunction; status post paroxysmal atrial fibrillation, presently on sinus rhythm. Continue bronchodilator. Keep head at 45 degrees. Gastric prophylaxis. Fall precaution. Continue therapy. Outpatient, will need PFT. Thank you and we will follow with you. Lenka García MD [facility] # [phone]
[2017-10-17] MEDS: guaiFENesin-Codeine 100-10mg/5ml Syrup (5 ml) UD PO SCH ×5 (00:09→16:09)
[2017-10-17] MEDS: Levalbuterol 0.63 MG/3 ML Inhal Soln UD IH SCH ×4 (00:30→13:32)
[2017-10-17] MEDS: oxyCODONE 5 mg Immediate Release Tab PO PRN (00:43)
[2017-10-17] MEDS: Pantoprazole 40 mg EC Tab PO SCH (05:00)
[2017-10-17 06:20] LABS: BASO # 0.01 K/mm3 (0.0-2.0); BASO % 1.1 % (0.0-3.0); EOS % 4.4 % (1.5-5.0); GRAN # 0.45 (1.4-6.5); GRAN % 49.4 % (50.0-68.0); HEMOGLOBIN 11.6 g/dL (14.0-18.0); LYMPH # 0.4 (1.2-3.4); LYMPH % 40.7 % (22.0-35.0); MEAN CELL VOLUME 85.1 fl (80.0-105.0); MEAN CORPUSCULAR HEMOGLOBIN 28.8 pg (25.0-35.0); MEAN CORPUSCULAR HGB CONC 33.8 g/dl (31.0-37.0); MEAN PLATELET VOLUME 9.8 fl (7.0-11.0); MONO % 4.4 % (1.0-6.0); RBC 4.03 10^6/uL (3.5-6.1); RED CELL DISTRIBUTION WIDTH 14.1 % (11.5-14.5)
[2017-10-17 06:44] LABS: ALB/GLOB RATIO 0.9 (1.1-1.8); ALBUMIN 2.6 g/dL (3.0-4.8); ALT/SGPT 65 U/L (7-56); AST/SGOT 30 U/L (17-59); BLOOD UREA NITROGEN 17 mg/dL (7-21); CALCIUM 8.1 mg/dL (8.4-10.5); GFR AFRICAN-AMERICAN > 60; GFR NON-AFRICAN AMERICAN > 60; WHITE BLOOD COUNT 0.9 10^3/ul (4.5-11.0)
[2017-10-17] MEDS: Megestrol Acetate 40 mg/ml Cup PO SCH (09:54)
[2017-10-17] MEDS: POLYETHYLENE GLYCOL 3350 17 GM/Dose PACKET PO SCH ×2 (09:54→17:00)
[2017-10-17 10:04] VITALS: RESP 18
--- NOTE | 2017-10-17 12:22 | CP.PCM.PN ---
Subjective - Date & Time of Evaluation Date of Evaluation: 10/17/17 Time of Evaluation: 12:20 - Subjective Subjective: Sobeida Dukes, PGY2, Heme-Onc Progress Note for Dr Lomeli: This is a 76 year old male with PMH gastric ulcer, gastritis, admitted for pneumonia, found to have small cell lung carcinoma with extensive mediastinal and hilar adenopathy and lytic lesions at T7, other vertebral bodies and liver mets, s/p 10 radiation treatments and 3 chemotherapy sessions. Patient now found to be neutropenic, put on neutropenic precautions. Patient seen and examined at bedside in TCU. No acute events overnight. Patient states that he feels well, reports mild weakness. States that his appetite is good, eating well including home made food. States that he is having daily BM, had one this AM. Reports mild cough with white sputum. q4 hours. Denies pain, mouth sores, fever, chills, nausea, vomiting, hemoptysis, hemaotchezia, petechiae, mucosal bleeding, melena, abdominal pain, leg swelling. Objective - Vital Signs/Intake and Output Vital Signs (last 24 hours): Temp Pulse Resp BP Pulse Ox 98.1 F 57 L 18 120/97 H 98 10/17/17 10:00 10/17/17 10:00 10/17/17 10:00 10/17/17 10:00 10/17/17 10:00 Intake and Output: 10/17/17 10/17/17 06:59 18:59 Intake Total 360 Balance 360 - Medications Medications: Current Medications Apixaban (Eliquis) 5 mg PO BID FERNANDO PRN Reason: Protocol Last Admin: 10/17/17 09:54 Dose: 5 mg Benzonatate (Tessalon Perles) 100 mg PO Q8 FERNANDO PRN Reason: Protocol Last Admin: 10/17/17 05:00 Dose: 100 mg Diphenhydramine HCl (Benadryl) 25 mg PO HS PRN; Protocol PRN Reason: Insomnia Last Admin: 10/17/17 00:43 Dose: 25 mg Guaifenesin/Codeine Phosphate (Robitussin W/Codeine) 5 ml PO Q4H FERNANDO PRN Reason: Protocol Last Admin: 10/17/17 12:10 Dose: 5 ml Home Med (Home Med) 1 unit SC DAILY FERNANDO Stop: 10/19/17 10:01 Last Admin: 10/16/17 17:58 Dose: 1 unit Levalbuterol HCl (Xopenex) 0.63 mg IH [id number] FRENANDO PRN Reason: Protocol Last Admin: 10/17/17 07:06 Dose: 0.63 mg Megestrol Acetate (Megace) 200 mg PO DAILY FERNANDO PRN Reason: Protocol Last Admin: 10/17/17 09:54 Dose: 200 mg Oxycodone HCl (Oxycodone Immediate Release Tab) 5 mg PO Q6H PRN; Protocol PRN Reason: Pain, moderate (4-7) Last Admin: 10/17/17 00:43 Dose: 5 mg Pantoprazole Sodium (Protonix Ec Tab) 40 mg PO 0600 FERNANDO PRN Reason: Protocol Last Admin: 10/17/17 05:00 Dose: 40 mg Polyethylene Glycol (Miralax) 17 gm PO BID FERNANDO PRN Reason: Protocol Last Admin: 10/17/17 09:54 Dose: 17 gm Sotalol HCl (Betapace) 80 mg PO BID FERNANDO PRN Reason: Protocol Last Admin: 10/17/17 09:54 Dose: 80 mg - Labs Labs: 10/17/17 06:00 10/17/17 06:00 - Additional Findings Additional findings: - Constitutional Appears: Older Than Stated Age, Chronically Ill - Head Exam Head Exam: ATRAUMATIC, NORMOCEPHALIC - Eye Exam Eye Exam: EOMI, PERRL. absent: Conjunctival injection, Nystagmus, Scleral icterus Pupil Exam: NORMAL ACCOMODATION, PERRL. absent: Miosis, Mydriatic, Unequal - ENT Exam ENT Exam: Mucous Membranes Moist - Neck Exam Neck Exam: Full ROM - Respiratory Exam Respiratory Exam: Decreased Breath Sounds - Cardiovascular Exam Cardiovascular Exam: RRR, +S1, +S2. absent: Murmur right sided chest port in place - GI/Abdominal Exam GI & Abdominal Exam: Soft, Normal Bowel Sounds. absent: Guarding, Rigid, Tenderness, Mass, Organomegaly, Rebound - Extremities Exam Extremities Exam: Normal Inspection. absent: Calf Tenderness, Pedal Edema - Back Exam Back Exam: NORMAL INSPECTION - Neurological Exam Neurological Exam: Alert, Awake, Oriented x3 - Psychiatric Exam Psychiatric exam: Normal Affect, Normal Mood - Skin Skin Exam: Dry, Normal Color, Warm Assessment and Plan - Assessment and Plan (Free Text) Assessment: 76 year old male with PMH gastric ulcer, gastritis, admitted for RLL pneumonia, found to have small cell lung cancer with extensive mediastinal and hilar adenopathy and lytic lesions at T7, other vertebral bodies and liver mets, s/p radiation treatments with Dr Iqbal and 3 sessions of chemotherapy. Patient transferred to TCU for rehab. Patient found to be leukopenic, ANC <500, put on neutropenic precautions: Neutropenia Small cell lung cancer with metastasis to bone, liver, s/p radiation and chemo session New onset afib Constipation, resolved RLL pneumonia Transaminitis 2/2 likely medication (rocephin) induced Chemotherapy - carboplatin and etoposide Deconditioning s/p chemo - c/w miralax bid. - c/w Megace - pathology report of hilar mass 10/02 showed small cell lung carcinoma - On eliquis 5 mg BID and sotalol for afib. as per cardio and primary team - completed 3/3 chemotherapy sessions with carboplatin and etoposide, last session 10/11 - Will need home oxygen - Abd US showed increased echogenicity of liver parenchyma, 2 separate hypoechoic lesions. 2x1.3 cm in diameter. fatty infiltration - transaminitis improving - Give Neupogen 480 mg sq daily, Day 6. May extend to 10-14 days, if patient wbc count remains low. - monitor daily cbc Case discussed with Dr Lomeli.
[2017-10-17 13:02] LABS: HEMOGLOBIN 11.8 g/dL (14.0-18.0); MEAN CORPUSCULAR HEMOGLOBIN 29.1 pg (25.0-35.0); MEAN CORPUSCULAR HGB CONC 34.2 g/dl (31.0-37.0); MEAN PLATELET VOLUME 9.8 fl (7.0-11.0); RBC 4.06 10^6/uL (3.5-6.1)
[2017-10-17 13:32] LABS: WHITE BLOOD COUNT 0.8 10^3/ul (4.5-11.0)
--- NOTE | 2017-10-17 15:36 | CP.PCM.DIS ---
<Kai Matos - Last Filed: 10/17/17 15:44> Provider - Provider Date of Admission: 10/11/17 20:43 Attending physician: Tru Larkin MD Primary care physician: NO FAMILY PROVIDER Consults: Hematology-Oncology doctor, Dr. Lomeli Radiation-Oncology, Dr. Iqbal Gastroenterology, Dr. Bynum Pulmonology, Dr. Ricky Og Time Spent in preparation of Discharge (in minutes): 40 Hospital Course - Lab Results Lab Results: Most Recent Lab Values WBC 0.8 10^3/ul (4.5-11.0) L* 10/17/17 12:50 RBC 4.06 10^6/uL (3.5-6.1) 10/17/17 12:50 Hgb 11.8 g/dL (14.0-18.0) L 10/17/17 12:50 Hct 34.5 % (42.0-52.0) L 10/17/17 12:50 MCV 85.0 fl (80.0-105.0) 10/17/17 12:50 MCH 29.1 pg (25.0-35.0) 10/17/17 12:50 MCHC 34.2 g/dl (31.0-37.0) 10/17/17 12:50 RDW 14.0 % (11.5-14.5) 10/17/17 12:50 Plt Count 116 10^3/uL (120.0-450.0) L 10/17/17 12:50 MPV 9.8 fl (7.0-11.0) 10/17/17 12:50 Gran % 49.4 % (50.0-68.0) L 10/17/17 06:00 Lymph % (Auto) 40.7 % (22.0-35.0) H 10/17/17 06:00 Hart % (Auto) 4.4 % (1.0-6.0) 10/17/17 06:00 Eos % (Auto) 4.4 % (1.5-5.0) 10/17/17 06:00 Baso % (Auto) 1.1 % (0.0-3.0) 10/17/17 06:00 Gran # 0.45 (1.4-6.5) L 10/17/17 06:00 Lymph # (Auto) 0.4 (1.2-3.4) L 10/17/17 06:00 Hart # (Auto) 0.0 (0.1-0.6) L 10/17/17 06:00 Eos # (Auto) 0.0 (0.0-0.7) 10/17/17 06:00 Baso # (Auto) 0.01 K/mm3 (0.0-2.0) 10/17/17 06:00 Neutrophils % (Manual) 88 % (50.0-70.0) H 10/14/17 09:00 Band Neutrophils % 5 % (0-2) H 10/14/17 09:00 Lymphocytes % (Manual) 5 % (22.0-35.0) L 10/14/17 09:00 Monocytes % (Manual) 1 % (1.0-6.0) 10/14/17 09:00 Platelet Evaluation Normal (NORMAL) 10/14/17 09:00 Large Platelets Present 10/14/17 09:00 Sodium 133 mmol/L (132-148) 10/17/17 06:00 Potassium 4.4 mmol/L (3.6-5.0) 10/17/17 06:00 Chloride 101 mmol/L (98-107) 10/17/17 06:00 Carbon Dioxide 27 mmol/L (21-33) 10/17/17 06:00 Anion Gap 9 (10-20) L 10/17/17 06:00 BUN 17 mg/dL (7-21) 10/17/17 06:00 Creatinine 0.6 mg/dl (0.8-1.5) L 10/17/17 06:00 Est GFR ( Amer) > 60 10/17/17 06:00 Est GFR (Non-Af Amer) > 60 10/17/17 06:00 Random Glucose 133 mg/dL (70-110) H 10/17/17 06:00 Calcium 8.1 mg/dL (8.4-10.5) L 10/17/17 06:00 Phosphorus 2.7 mg/dL (2.5-4.5) 10/17/17 06:00 Magnesium 2.0 mg/dL (1.7-2.2) 10/17/17 06:00 Total Bilirubin 0.7 mg/dL (0.2-1.3) 10/17/17 06:00 AST 30 U/L (17-59) 10/17/17 06:00 ALT 65 U/L (7-56) H 10/17/17 06:00 Alkaline Phosphatase 69 U/L (38-126) 10/17/17 06:00 Total Protein 5.4 g/dL (5.8-8.3) L 10/17/17 06:00 Albumin 2.6 g/dL (3.0-4.8) L 10/17/17 06:00 Globulin 2.8 gm/dL 10/17/17 06:00 Albumin/Globulin Ratio 0.9 (1.1-1.8) L 10/17/17 06:00 - Hospital Course Hospital Course: Kai Matos DO PGY1 - Internal Medicine Carbon Coating Machine Operator - TCU Discharge Summary HPI: Pt is a 76 yo male with a past medical history of only GI ulcer in 2014 who [place] [facility] [place] for 3 weeks of productive cough with white/yellow sputum and SOB. He denies blood in his sputum. He states that he traveled to [place] for his son's wedding and [place] the [place]. He reports a recent 19lb wt loss, due to "food does not taste the same". Pt quit smoking about 5 years ago. Pt reports he has been using Tim's Vapor rub, but it has not helped very much. He states that he is SOB which is worse when he lays down and better when he sits up. Lung CA: Initially there was some opposition to biopsy by family and patient however on , CT guided biopsy of mediastinal mass was performed. Patient had a subsequent pneumothorax from procedure and chest tube was placed and removed after 3 days; pneumothorax resolution was visualized on CXR morning after biopsy as well as after removal of chest tube. Patient was started on palliative radiation (10/02) while awaiting pathology report. Subsequently, path report yielded small cell lung CA. Port placed 10/08, and Patient began first round of carboplatin/ etoposide based chemo therapy from 10/09-10/11. Starting on Granix was started on patient QD for 7 total days. On 10/16 medical team notified out patient insurance would not further cover granix; last dose of granix was given on 10/16. On 10/16 patient noted to have leukopenia, and on 10/17 patient was neutropenic w/ count of 450. Neutropenic precautions were started, heme onc was made aware, and infectious disease was alerted as well. Post obsructive pneumonia No s/s infection moving forward; cough has been minimized; afebrile. No signs/symtpoms of recurrence of pneumonia or systemic infection post antibiotic course. Xopenex breathing treatments as needed; Afib w/ RVR: His hospital course was complicated with QUALITY TECH called for new-onset afib w/ RVR; patient was initially anticoagulated w/ heparin drip and subseuqently switched to eliquis. Patient is rate controlled at this time w/ Sotalol 80 BID. Dose was decreased to Sotalol 40 BID after patient was borderline hypotensive. Transaminitis: Resolving; most likely thought to be drug induced Patient will be discharged from TCU on 10/17 to inpatient due to worsening neutropenia and possible prophylactic antibiotic management. - Date & Time of H&P Date of H&P: 10/12/17 Time of H&P: 08:13 Discharge Exam - Head Exam Head Exam: NORMOCEPHALIC - Eye Exam Eye Exam: EOMI, Normal appearance, PERRL. absent: Scleral icterus - ENT Exam ENT Exam: Mucous Membranes Moist - Respiratory Exam Respiratory Exam: Clear to PA & Lateral, NORMAL BREATHING PATTERN, UNREMARKABLE. absent: Rales, Rhonchi, Wheezes, Respiratory Distress Additional comments: RLL crackles - Cardiovascular Exam Cardiovascular Exam: REGULAR RHYTHM, RRR, +S1, +S2. absent: Systolic Murmur - GI/Abdominal Exam GI & Abdominal Exam: Normal Bowel Sounds, Soft, Unremarkable. absent: Tenderness - Extremities Exam Extremities exam: pedal pulses present (2+ TP/DP BL ) Additional comments: No edema in lower extremities - Back Exam Back exam: absent: CVA tenderness (L), CVA tenderness (R) - Neurological Exam Neurological exam: Alert, CN II-XII Intact, Oriented x3 - Psychiatric Exam Psychiatric exam: Normal Affect, Normal Mood - Skin Skin Exam: Dry, Intact, Normal Color, Warm Discharge Plan - Discharge Medications Prescriptions: Tbo-Filgrastim [Granix] 480 mcg SC DAILY #7 ml - Follow Up Plan Condition: STABLE Disposition: OTHER INSTITUTION Patient education suggested?: Yes Instructions: Lung Cancer (DC), Community-Acquired Pneumonia, Adult (DC) Referrals: FAMILY PROVIDER,NO [Primary Care Provider] - <Tru Larkin - Last Filed: 10/17/17 17:23> Provider - Provider Date of Admission: 10/11/17 20:43 Attending physician: Tru Larkin MD Primary care physician: NO FAMILY PROVIDER Hospital Course - Lab Results Lab Results: Most Recent Lab Values WBC 0.8 10^3/ul (4.5-11.0) L* 10/17/17 12:50 RBC 4.06 10^6/uL (3.5-6.1) 10/17/17 12:50 Hgb 11.8 g/dL (14.0-18.0) L 10/17/17 12:50 Hct 34.5 % (42.0-52.0) L 10/17/17 12:50 MCV 85.0 fl (80.0-105.0) 10/17/17 12:50 MCH 29.1 pg (25.0-35.0) 10/17/17 12:50 MCHC 34.2 g/dl (31.0-37.0) 10/17/17 12:50 RDW 14.0 % (11.5-14.5) 10/17/17 12:50 Plt Count 116 10^3/uL (120.0-450.0) L 10/17/17 12:50 MPV 9.8 fl (7.0-11.0) 10/17/17 12:50 Gran % 49.4 % (50.0-68.0) L 10/17/17 06:00 Lymph % (Auto) 40.7 % (22.0-35.0) H 10/17/17 06:00 Hart % (Auto) 4.4 % (1.0-6.0) 10/17/17 06:00 Eos % (Auto) 4.4 % (1.5-5.0) 10/17/17 06:00 Baso % (Auto) 1.1 % (0.0-3.0) 10/17/17 06:00 Gran # 0.45 (1.4-6.5) L 10/17/17 06:00 Lymph # (Auto) 0.4 (1.2-3.4) L 10/17/17 06:00 Hart # (Auto) 0.0 (0.1-0.6) L 10/17/17 06:00 Eos # (Auto) 0.0 (0.0-0.7) 10/17/17 06:00 Baso # (Auto) 0.01 K/mm3 (0.0-2.0) 10/17/17 06:00 Neutrophils % (Manual) 88 % (50.0-70.0) H 10/14/17 09:00 Band Neutrophils % 5 % (0-2) H 10/14/17 09:00 Lymphocytes % (Manual) 5 % (22.0-35.0) L 10/14/17 09:00 Monocytes % (Manual) 1 % (1.0-6.0) 10/14/17 09:00 Platelet Evaluation Normal (NORMAL) 10/14/17 09:00 Large Platelets Present 10/14/17 09:00 Sodium 133 mmol/L (132-148) 10/17/17 06:00 Potassium 4.4 mmol/L (3.6-5.0) 10/17/17 06:00 Chloride 101 mmol/L (98-107) 10/17/17 06:00 Carbon Dioxide 27 mmol/L (21-33) 10/17/17 06:00 Anion Gap 9 (10-20) L 10/17/17 06:00 BUN 17 mg/dL (7-21) 10/17/17 06:00 Creatinine 0.6 mg/dl (0.8-1.5) L 10/17/17 06:00 Est GFR ( Amer) > 60 10/17/17 06:00 Est GFR (Non-Af Amer) > 60 10/17/17 06:00 Random Glucose 133 mg/dL (70-110) H 10/17/17 06:00 Calcium 8.1 mg/dL (8.4-10.5) L 10/17/17 06:00 Phosphorus 2.7 mg/dL (2.5-4.5) 10/17/17 06:00 Magnesium 2.0 mg/dL (1.7-2.2) 10/17/17 06:00 Total Bilirubin 0.7 mg/dL (0.2-1.3) 10/17/17 06:00 AST 30 U/L (17-59) 10/17/17 06:00 ALT 65 U/L (7-56) H 10/17/17 06:00 Alkaline Phosphatase 69 U/L (38-126) 10/17/17 06:00 Total Protein 5.4 g/dL (5.8-8.3) L 10/17/17 06:00 Albumin 2.6 g/dL (3.0-4.8) L 10/17/17 06:00 Globulin 2.8 gm/dL 10/17/17 06:00 Albumin/Globulin Ratio 0.9 (1.1-1.8) L 10/17/17 06:00 Attending/Attestation - Attestation I have reviewed all pertinent clinical information, including history, physical exam and plan: Yes Notes (Text): 10/17/17 17:17 76 year old male with past medical history of prior tobacco use who presented with complaint of cough and shortness of breath. CT chest study showed right lower lobe pneumonia, diffuse moderatee mediastianal MYA and extrapulmonary lesions suggestive of metastatic process. CT abd/pelvis showed liver lesion and possible lumbar spine metastasis. Patient had lung biopsy which showed small cell carcinoma for which he was started on chemotherapy and radiation. He is also on eliquis and sotalol for paroxysmal afib. Sotalol dose is reduced today due to low normal BP readings. He was on granix for leukopenia which is actually worse today. Insurance coverage issues also brought up regarding continuing granix while in TCU. Case discussed with Dr. Wells; will transfer to medical floor to continue granix and neutropenic precautions. ID evaluation also requested. Tru Larkin MD Hospitalist.
[2017-10-17] MEDS: GRANIX SC SCH (16:08)
[2017-10-17 16:41] VITALS: BP 101/55; PULSE 70; TEMP 98.2; O2SAT 96
[2017-10-17] MEDS ORDERED: Levalbuterol 0.63 MG/3 ML Inhal Soln UD IH STA (16:47)
--- NOTE | 2017-10-17 20:05 | PN ---
Copied To: Lenka García MD Attending MD: Lenka García MD DATE: 10/17/2017 PULMONARY PROGRESS NOTE REFERRING PHYSICIAN: Lenka Owens MD SUBJECTIVE: The patient is lying in the bed, head at 45 degrees, isolated because of neutropenic precaution . No cough, no sputum production, no chest pain, no dysuria. No leg pain or leg swelling. OBJECTIVE: GENERAL: In no acute distress. VITAL SIGNS: Temperature is 98, heart rate is 57, respiratory rate is 18, blood pressure 120/97, pulse ox 98% on 3 L nasal cannula. HEENT: Moist mucous membrane. No ulcer or thrush noted. NECK: Supple. No JVD. LUNGS: Have a fair airflow with rhonchi. HEART: S1 and S2. ABDOMEN: Soft and nontender. No organomegaly. EXTREMITIES: No edema. NEUROLOGICAL: Awake and alert. Follows simple command. MEDICATIONS: He is on Benadryl 25 mg at bedtime p.r.n., sotalol 40 mg twice a day, Eliquis 5 mg twice a day, Megace 200 mg daily, MiraLax 17 g twice a day, oxycodone immediate release 5 mg every 6 hours p.r.n., Protonix 40 mg daily, Robitussin with codeine every 4 hours, Tessalon Perles 100 mg every 8 hours, Xopenex 0.63 every 6 hours. LABORATORY DATA: Shows hemoglobin 11.8, hematocrit 34.5, WBC 0.8, platelet is 116. Sodium 133, potassium 4.4, chloride 101, bicarbonate 27, BUN 17, creatinine 0.6, glucose 133, calcium 8.1, magnesium 2. AST 30, ALT 65, alkaline phosphatase is 69, albumin is 2.6. 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 Also, had hemoptysis. Pulmonary point of view, doing well. Keep head at 45 degrees, being followed by Oncology, bronchodilator, gastric prophylaxis, deep vein thrombosis prophylaxis, status post paroxysmal atrial fibrillation, presently on sinus rhythm. Thank you and we will follow with you. Lenka García MD [facility] # [id number]
== END 2017-10-17 17:29 | disposition short-term general hospital (02) | DRG 194 ==
LOC: TRCU 20:43
PROVIDERS: ADMIT Internal Medicine; ATTEND Internal Medicine
PROC: F07Z9ZZ Gait Training/Functional Ambulation Treatment (ICD-10-PCS; principal; 2017-10-12)
PROC: F07M6ZZ Therapeutic Exercise Treatment of Musculoskeletal System - Whole Body (ICD-10-PCS; 2017-10-12)
PROC: F08Z2ZZ Grooming/Personal Hygiene Treatment (ICD-10-PCS; 2017-10-12)
PROC: F08Z0ZZ Bathing/Showering Techniques Treatment (ICD-10-PCS; 2017-10-12)
PROC: F08Z4ZZ Home Management Treatment (ICD-10-PCS; 2017-10-12)
DX: J18.9 Pneumonia, unspecified organism (principal); J44.0 Chronic obstructive pulmonary disease with (acute) lower respiratory infection; C34.00 Malignant neoplasm of unspecified main bronchus; C78.7 Secondary malignant neoplasm of liver and intrahepatic bile duct; C79.51 Secondary malignant neoplasm of bone; M48.56XA Collapsed vertebra, not elsewhere classified, lumbar region, initial encounter for fracture; D70.9 Neutropenia, unspecified; E83.39 Other disorders of phosphorus metabolism; E87.5 Hyperkalemia; I48.0 Paroxysmal atrial fibrillation; K21.9 Gastro-esophageal reflux disease without esophagitis; K59.00 Constipation, unspecified; N28.1 Cyst of kidney, acquired; Z79.01 Long term (current) use of anticoagulants; Z87.11 Personal history of peptic ulcer disease; Z87.891 Personal history of nicotine dependence; Z92.21 Personal history of antineoplastic chemotherapy; Z92.3 Personal history of irradiation; R74.0 Nonspecific elevation of levels of transaminase and lactic acid dehydrogenase [LDH]

== ENCOUNTER 2017-10-17 17:35 | Inpatient (IN) | payer MEDICARE, OTHER ==
--- NOTE | 2017-10-17 17:44 | CP.PCM.HP ---
<MatosJuan DiegoKai - Last Filed: 10/17/17 21:06> History of Present Illness - History of Present Illness History of Present Illness: HPI: Pt is a 76 yo male with a past medical history of only GI ulcer in 2014 who presents to [facility] on 09/24 for 3 weeks of productive cough with white/yellow sputum and SOB. He denies blood in his sputum. He states that he traveled to [place] for his son's wedding and [place]. He reports a recent 19lb wt loss, due to "food does not taste the same". Pt quit smoking about 5 years ago. Pt reports he has been using Tim's Vapor rub, but it has not helped very much. He states that he is SOB which is worse when he lays down and better when he sits up. He was initially worked up and managed inpatient then transferred to TCU. He is now transferred back to inpatient due to insurance issues No acute complaints at this time; 12 system ROS only positive for cough, otherwise negative. Lung CA: Initially there was some opposition to biopsy by family and patient however on , CT guided biopsy of mediastinal mass was performed. Patient had a subsequent pneumothorax from procedure and chest tube was placed and removed after 3 days; pneumothorax resolution was visualized on CXR morning after biopsy as well as after removal of chest tube. Patient was started on palliative radiation (10/02) while awaiting pathology report. Subsequently, path report yielded small cell lung CA. Port placed 10/08, and Patient began first round of carboplatin/ etoposide based chemo therapy from 10/09-10/11. Starting on Granix was started on patient QD for 7 total days. On 10/16 medical team notified out patient insurance would not further cover granix; last dose of granix was given on 10/16. On 10/16 patient noted to have leukopenia, and on 10/17 patient was neutropenic w/ count of 450. Neutropenic precautions were started, heme onc was made aware, and infectious disease was alerted as well. Post obsructive pneumonia No s/s infection moving forward; cough has been minimized; afebrile. No signs/symtpoms of recurrence of pneumonia or systemic infection post antibiotic course. Xopenex breathing treatments as needed; Afib w/ RVR: His hospital course was complicated with NET COORDINATOR called for new-onset afib w/ RVR; patient was initially anticoagulated w/ heparin drip and subseuqently switched to eliquis. Patient is rate controlled at this time w/ Sotalol 80 BID. Dose was decreased to Sotalol 40 BID after patient was borderline hypotensive. Transaminitis: Resolving; most likely thought to be drug induced Patient discharged from TCU on 10/17 to inpatient due to worsening neutropenia and possible prophylactic antibiotic management. Present on Admission - Present on Admission Any Indicators Present on Admission: No Review of Systems - Review of Systems All systems: reviewed and no additional remarkable complaints except Review of Systems: as per HPI Past Patient History - Tetanus Immunizations Tetanus Immunization: Unknown - Past Social History Smoking Status: Former Smoker - CARDIAC Hx Cardiac Disorders: No - PULMONARY Hx Respiratory Disorders: No - NEUROLOGICAL Hx Neurological Disorder: No - HEENT Hx HEENT Problems: No - RENAL Hx Chronic Kidney Disease: No - ENDOCRINE/METABOLIC Hx Endocrine Disorders: No - HEMATOLOGICAL/ONCOLOGICAL Hx Blood Disorders: No - INTEGUMENTARY Hx Dermatological Problems: No - MUSCULOSKELETAL/RHEUMATOLOGICAL Hx Falls: No - GASTROINTESTINAL Hx Gastrointestinal Disorders: No - GENITOURINARY/GYNECOLOGICAL Hx Genitourinary Disorders: No Hx Reproductive Disorders: No - PSYCHIATRIC Hx Depression: No Hx Emotional Abuse: No Hx Physical Abuse: No Hx Substance Use: No - SURGICAL HISTORY Hx Surgeries: No Hx Amputation: No Other/Comment: colonoscopy [address]num, no findings. Meds Allergies/Adverse Reactions: Allergies Allergy/AdvReac Type Severity Reaction Status Date / Time No Known Allergies Allergy Verified 10/11/17 21:06 Physical Exam - Constitutional Appears: Non-toxic, No Acute Distress - Head Exam Head Exam: ATRAUMATIC, NORMAL INSPECTION, NORMOCEPHALIC - Eye Exam Eye Exam: EOMI, Normal appearance, PERRL. absent: Scleral icterus - ENT Exam ENT Exam: Mucous Membranes Moist - Respiratory Exam Additional comments: RLL/ RML crackles L lung chacon CTA - Cardiovascular Exam Cardiovascular Exam: REGULAR RHYTHM, RRR, +S1, +S2. absent: Systolic Murmur - GI/Abdominal Exam GI & Abdominal Exam: Normal Bowel Sounds, Soft. absent: Tenderness - Extremities Exam Extremities exam: Positive for: normal inspection, pedal pulses present (2+ TP/ DP BL). Negative for: pedal edema, tenderness - Back Exam Back exam: absent: CVA tenderness (L), CVA tenderness (R) - Neurological Exam Neurological exam: Alert, CN II-XII Intact, Oriented x3 - Psychiatric Exam Psychiatric exam: Normal Affect, Normal Mood - Skin Skin Exam: Dry, Intact, Normal Color, Warm Assessment & Plan - Assessment and Plan (Free Text) Assessment: 76M PMH of GERD presented to [facility] 09/24 on w/ SOB and productive cough subsequently found have postobstructive pneumonia 2/2 new onset small cell lung cancer. Hospital course complicated by transaminitis and paroxysmal afib. Patient is status post first round of chemo therapy as of 10/11. Hospital course complicated by leukopenia. Small Cell Lung Cancer s/p Chemo/Radiation treatments CT chest 09/25: extensive mediastinal and hilar lymphadenopathy suspicious for underlying pulmonary malignancy. Lytic lesion at T7 consistent with metastatic disease. Scattered sclerotic lesions. Extensive R lower lobe pneumonia. Ct abd/ pelvis 09/25: scattered osteoblastic lesions in multiple vertebral bodies, posterior elements and ribs. Age-indeterminate fracture of L4 superior end-plate , may be acute and/or pathologic. Low density lesion in anterolateral liver, metastasis suspected. Ct head 09/27: no evidence of metastatic disease, no acute intracranial findings Bone scan 09/26: findings consistent with bony metastatic disease Patient underwent CT guided biopsy of lung mass on 10/01 complicated by pneumothorax now resolved; chest tube was placed due to pneumothorax and has now been removed Pathology of hilar mass - small cell lung CA Radiation completed on 10/15 Patient completed first round of chemo therapy on 10/11. Cisplatin based therapy occurring Q28 days. Currently neutropenic; on neutropenic precautions; ANC 450 Currently receiving granix as per Dr. Lomeli ID Consulted, appreciate reccs New-onset atrial fibrillation with rapid ventricular response Rapid response called on 09/26/17; pt had additional episode overnight that converted back to normal sinus rhythm spontaneously Patient was borderline hypotensive on Sotalol 80mg BID; Patient started on Sotalol 40 BID. C/w anticoagulation w/ eliquis 5mg BID Cardio consulted (Dr. Chirinos), recs appreciated Transaminitis - Resolving LFTs are continuing to trend down Hepatotoxic meds discontinued Ceftriaxone discontinued 10/05/[address] Bynum, recs appreciated Post-Obstructive Pneumonia -Resolving CXR on admission + for PNA Patient afebrile; asymptomatic at this time C/w Xopenex as per pulm reccs C/w Robitussin+Codeine PRN and Tessalon perles PRN ID Following Pulm Following Electrolyte abnormalities HyperK/ Hypophos / Hyper mag Continue following levels; treat/replete as necessary Treat hypophos w/ sodium phos as to not upset other electrolyte balances Nephrology (Dr Barrera) has signed off DVT/GI ppx: SCD /Protonix Disposition plan: Patient has completed his first round of chemotherapy, and now in TCU for rehabilitation/ PT. Patient seen, examined, and case discussed w/ attending physician Dr. Graciela Matos DO PGY1 Internal Medicine Gas Operations Analyst - Pager [phone] - Date & Time Date: 10/17/17 Time: 21:08 <Tru Larkin - Last Filed: 10/18/17 07:00> Results - Vital Signs Recent Vital Signs: Last Vital Signs Temp Pulse Resp 20 10/17/17 20:00 BP Pulse Ox Attending/Attestation - Attestation I have personally seen and examined this patient.: Yes I have fully participated in the care of the patient.: Yes I have reviewed all pertinent clinical information: Yes Notes (Text): 10/17/17 76 year old male with past medical history of prior tobacco use who presented with complaint of cough and shortness of breath. CT chest study showed right lower lobe pneumonia, diffuse moderatee mediastianal MYA and extrapulmonary lesions suggestive of metastatic process. CT abd/pelvis showed liver lesion and possible lumbar spine metastasis. Patient had lung biopsy which showed small cell carcinoma for which he was started on chemotherapy and radiation. He is also on eliquis and sotalol for paroxysmal afib. Sotalol dose is reduced today due to low normal BP readings. Today patient was noted to have worsening leukopenia. He was on granix, however due to insurance coverage issues unable to continue granix while in TCU. Patient is transferred to medical floor. Continue with neutropenic precautions. ID and hematology/oncology follow up requested. Tru Larkin MD Hospitalist.
[2017-10-17] MEDS: oxyCODONE 5 mg Immediate Release Tab PO PRN (19:14)
[2017-10-17] MEDS: guaiFENesin-Codeine 100-10mg/5ml Syrup (5 ml) UD PO SCH ×2 (19:14→22:18)
[2017-10-17] MEDS: Levalbuterol 0.63 MG/3 ML Inhal Soln UD IH SCH (20:11)
[2017-10-17 20:19] VITALS: BMI 23.1
[2017-10-18] MEDS: Levalbuterol 0.63 MG/3 ML Inhal Soln UD IH SCH ×4 (01:48→19:27)
[2017-10-18] MEDS: oxyCODONE 5 mg Immediate Release Tab PO PRN (02:44)
[2017-10-18] MEDS: guaiFENesin-Codeine 100-10mg/5ml Syrup (5 ml) UD PO SCH ×6 (02:44→22:00)
[2017-10-18] MEDS: Pantoprazole 40 mg EC Tab PO SCH (06:18)
[2017-10-18 06:43] LABS: EOS % 4.3 % (1.5-5.0); GRAN # 0.17 (1.4-6.5); GRAN % 24.7 % (50.0-68.0); HEMOGLOBIN 12.2 g/dL (14.0-18.0); LYMPH # 0.4 (1.2-3.4); LYMPH % 59.4 % (22.0-35.0); MEAN CELL VOLUME 84.7 fl (80.0-105.0); MEAN CORPUSCULAR HEMOGLOBIN 28.2 pg (25.0-35.0); MEAN CORPUSCULAR HGB CONC 33.3 g/dl (31.0-37.0); MEAN PLATELET VOLUME 9.9 fl (7.0-11.0); MONO # 0.1 (0.1-0.6); MONO % 11.6 % (1.0-6.0); RBC 4.32 10^6/uL (3.5-6.1); RED CELL DISTRIBUTION WIDTH 13.9 % (11.5-14.5)
[2017-10-18 07:09] LABS: ALT/SGPT 81 U/L (7-56); AST/SGOT 28 U/L (17-59); BLOOD UREA NITROGEN 19 mg/dL (7-21); CALCIUM 8.7 mg/dL (8.4-10.5); GFR AFRICAN-AMERICAN > 60; GFR NON-AFRICAN AMERICAN > 60
[2017-10-18 07:21] LABS: WHITE BLOOD COUNT 0.7 10^3/ul (4.5-11.0)
--- NOTE | 2017-10-18 07:41 | CP.PCM.PN ---
<Kai Matos - Last Filed: 10/18/17 13:03> Subjective - Date & Time of Evaluation Date of Evaluation: 10/18/17 Time of Evaluation: 07:31 - Subjective Subjective: Kai Matos DO PGY1 - Hospital Progress Note Patient was seen and examined at bedside on med/surg floor under isolation precautions this AM; No acute distress, No acute events overnight; 12 system ROS negative at time of exam. Objective - Vital Signs/Intake and Output Vital Signs (last 24 hours): Temp Pulse Resp BP Pulse Ox 20 10/17/17 20:00 Intake and Output: 10/18/17 10/18/17 06:59 18:59 Intake Total 360 Balance 360 - Medications Medications: Current Medications Apixaban (Eliquis) 5 mg PO BID [facility] PRN Reason: Protocol Benzonatate (Tessalon Perles) 100 mg PO Q8 [facility] Last Admin: 10/18/17 06:18 Dose: 100 mg Diphenhydramine HCl (Benadryl) 25 mg PO HS PRN PRN Reason: Insomnia Last Admin: 10/18/17 03:49 Dose: 25 mg Guaifenesin/Codeine Phosphate (Robitussin W/Codeine) 5 ml PO Q4H [facility] Last Admin: 10/18/17 06:17 Dose: 5 ml Levalbuterol HCl (Xopenex) 0.63 mg IH [id number] [facility] Last Admin: 10/18/17 01:48 Dose: 0.63 mg Megestrol Acetate (Megace) 200 mg PO DAILY [facility] Oxycodone HCl (Oxycodone Immediate Release Tab) 5 mg PO Q6H PRN PRN Reason: Pain, moderate (4-7) Last Admin: 10/18/17 02:44 Dose: 5 mg Pantoprazole Sodium (Protonix Ec Tab) 40 mg PO 0600 [facility] Last Admin: 10/18/17 06:18 Dose: 40 mg Polyethylene Glycol (Miralax) 17 gm PO BID [facility] Sotalol HCl (Betapace) 40 mg PO BID [facility] - Labs Labs: 10/18/17 06:30 10/18/17 06:30 Physical Exam - Constitutional Appears: Non-toxic, No Acute Distress - Head Exam Head Exam: ATRAUMATIC, NORMAL INSPECTION, NORMOCEPHALIC - Eye Exam Eye Exam: EOMI, Normal appearance, PERRL. absent: Scleral icterus - ENT Exam ENT Exam: Mucous Membranes Moist - Respiratory Exam Additional comments: RLL/ RML crackles L lung chacon CTA - Cardiovascular Exam Cardiovascular Exam: REGULAR RHYTHM, RRR, +S1, +S2. absent: Systolic Murmur - GI/Abdominal Exam GI & Abdominal Exam: Normal Bowel Sounds, Soft. absent: Tenderness - Extremities Exam Extremities exam: Positive for: normal inspection, pedal pulses present (2+ TP/ DP BL). Negative for: pedal edema, tenderness - Back Exam Back exam: absent: CVA tenderness (L), CVA tenderness (R) - Neurological Exam Neurological exam: Alert, CN II-XII Intact, Oriented x3 - Psychiatric Exam Psychiatric exam: Normal Affect, Normal Mood - Skin Skin Exam: Dry, Intact, Normal Color, Warm Assessment and Plan - Assessment and Plan (Free Text) Assessment: 76M PMH of GERD presented [place] [facility] 09[place]24 on w/ SOB and productive cough subsequently found have postobstructive pneumonia 2/2 new onset small cell lung cancer. Hospital course complicated by transaminitis and paroxysmal afib. Patient is status post first round of chemo therapy as of 10/11. Hospital course currently complicated by leukopenia. Small Cell Lung Cancer s/p Chemo/Radiation treatments CT chest 09/25: extensive mediastinal and hilar lymphadenopathy suspicious for underlying pulmonary malignancy. Lytic lesion at T7 consistent with metastatic disease. Scattered sclerotic lesions. Extensive R lower lobe pneumonia. Ct abd/ pelvis 09/25: scattered osteoblastic lesions in multiple vertebral bodies, posterior elements and ribs. Age-indeterminate fracture of L4 superior end-plate , may be acute and/or pathologic. Low density lesion in anterolateral liver, metastasis suspected. Ct head 09/27: no evidence of metastatic disease, no acute intracranial findings Bone scan 09/26: findings consistent with bony metastatic disease Patient underwent CT guided biopsy of lung mass on 10/01 complicated by pneumothorax now resolved; chest tube was placed due to pneumothorax and has now been removed Pathology of hilar mass - small cell lung CA Radiation completed on 10/15; Patient is to follow up with Dr. Farida Dupont 6-8 weeks after completion of radiation Patient completed first round of chemo therapy on 10/11. Cisplatin based therapy occurring Q28 days. Neutropenia Currently on neutropenic precautions; ANC today 170 from 450 Currently receiving granix as per Dr. Armani ID Consulted, appreciate reccs regarding prophylactic measure New-onset atrial fibrillation with rapid ventricular response Rapid response called on 09/26/17; pt had additional episode overnight that converted back to normal sinus rhythm spontaneously Patient was borderline hypotensive on Sotalol 80mg BID; Patient started on Sotalol 40 BID; His pressures and rate have been within normal limits since changing dosage C/w anticoagulation w/ eliquis 5mg BID Cardio consulted (Dr. Chirinos), recs appreciated Transaminitis - Resolving LFTs are continuing to trend down Hepatotoxic meds discontinued Ceftriaxone discontinued 10/05/[address] Bynum, recs appreciated Post-Obstructive Pneumonia -Resolving CXR on admission + for PNA Patient afebrile; asymptomatic at this time C/w Xopenex as per pulm reccs C/w Robitussin+Codeine PRN and Tessalon perles PRN ID Following Pulm Following Electrolyte abnormalities HyperK/ Hypophos / Hyper mag Continue following levels; treat/replete as necessary Treat hypophos w/ sodium phos as to not upset other electrolyte balances Nephrology (Dr Barrera) has signed off DVT/GI ppx: SCD /Protonix Disposition plan: Patient has completed his first round of chemotherapy, and now in TCU for rehabilitation/ PT. Patient seen, examined, and case discussed w/ attending physician Dr. 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 [phone] <Tru Larkin - Last Filed: 10/18/17 17:29> Objective - Vital Signs/Intake and Output Vital Signs (last 24 hours): Temp Pulse Resp BP Pulse Ox 97.9 F 66 19 92/53 L 98 10/18/17 17:07 10/18/17 17:07 10/18/17 17:07 10/18/17 17:07 10/18/17 17:07 Intake and Output: 10/18/17 10/18/17 06:59 18:59 Intake Total 360 Balance 360 - Medications Medications: Current Medications Apixaban (Eliquis) 5 mg PO BID [facility] PRN Reason: Protocol Last Admin: 10/18/17 17:17 Dose: 5 mg Benzonatate (Tessalon Perles) 100 mg PO Q8 [facility] Last Admin: 10/18/17 14:55 Dose: 100 mg Diphenhydramine HCl (Benadryl) 25 mg PO HS PRN PRN Reason: Insomnia Last Admin: 10/18/17 03:49 Dose: 25 mg Guaifenesin/Codeine Phosphate (Robitussin W/Codeine) 5 ml PO Q4H [facility] Last Admin: 10/18/17 14:55 Dose: 5 ml Levalbuterol HCl (Xopenex) 0.63 mg IH [id number] [facility] Last Admin: 10/18/17 14:14 Dose: 0.63 mg Megestrol Acetate (Megace) 200 mg PO DAILY [facility] Last Admin: 10/18/17 10:19 Dose: 200 mg Oxycodone HCl (Oxycodone Immediate Release Tab) 5 mg PO Q6H PRN PRN Reason: Pain, moderate (4-7) Last Admin: 10/18/17 02:44 Dose: 5 mg Pantoprazole Sodium (Protonix Ec Tab) 40 mg PO 0600 [facility] Last Admin: 10/18/17 06:18 Dose: 40 mg Polyethylene Glycol (Miralax) 17 gm PO BID [facility] Last Admin: 10/18/17 17:17 Dose: Not Given Sotalol HCl (Betapace) 40 mg PO BID [facility] Last Admin: 10/18/17 17:17 Dose: 40 mg - Labs Labs: 10/18/17 06:30 10/18/17 06:30 Attending/Attestation - Attestation I have personally seen and examined this patient.: Yes I have fully participated in the care of the patient.: Yes I have reviewed all pertinent clinical information, including history, physical exam and plan: Yes Notes (Text): 10/18/17 17:28 76 year old male with past medical history of prior tobacco use who presented with complaint of cough and shortness of breath. CT chest study showed right lower lobe pneumonia, diffuse moderatee mediastianal MYA and extrapulmonary lesions suggestive of metastatic process. CT abd/pelvis showed liver lesion and possible lumbar spine metastasis. Patient had lung biopsy which showed small cell carcinoma for which he was started on chemotherapy and radiation. He is also on eliquis and sotalol for paroxysmal afib. He was transferred to medical floor yesterday due to worsening leukopenia. He is on granix. Hematology/oncology is following. ID will evaluate patient today as well. Continue with neutropenic precautions. Tru Larkin MD Hospitalist.
--- NOTE | 2017-10-18 10:07 | CP.PCM.PN ---
Subjective - Date & Time of Evaluation Date of Evaluation: 10/18/17 Time of Evaluation: 10:02 - Subjective Subjective: Sobeida Dukes, PGY2, Heme-Onc Progress Note for Dr Lomeli: This is a 76 year old male with PMH gastric ulcer, gastritis, admitted for pneumonia, found to have small cell lung carcinoma with extensive mediastinal and hilar adenopathy and lytic lesions at T7, other vertebral bodies and liver mets, s/p 10 radiation treatments and 3 chemotherapy sessions. Patient now found to be neutropenic, put on neutropenic precautions. Patient transferred back to inpatient side from TCU, for granix injections until patient is stabilized. Patient seen and examined at bedside. No acute events overnight. Patient reports weakness, denies pain. Reports mild cough every few hours, denies hemoptysis, fevers, chills, nausea, vomiting, hematochezia, abdominal pain, hematochezia, mucosal bleeding. Had BM this AM. Reports that he has good appetite. Objective - Vital Signs/Intake and Output Vital Signs (last 24 hours): Temp Pulse Resp BP Pulse Ox 97.4 F L 68 19 132/71 97 10/18/17 08:13 10/18/17 08:13 10/18/17 08:13 10/18/17 08:13 10/18/17 08:13 Intake and Output: 10/18/17 10/18/17 06:59 18:59 Intake Total 360 Balance 360 - Medications Medications: Current Medications Apixaban (Eliquis) 5 mg PO BID FERNANDO PRN Reason: Protocol Benzonatate (Tessalon Perles) 100 mg PO Q8 [facility] Last Admin: 10/18/17 06:18 Dose: 100 mg Diphenhydramine HCl (Benadryl) 25 mg PO HS PRN PRN Reason: Insomnia Last Admin: 10/18/17 03:49 Dose: 25 mg Guaifenesin/Codeine Phosphate (Robitussin W/Codeine) 5 ml PO Q4H [facility] Last Admin: 10/18/17 06:17 Dose: 5 ml Levalbuterol HCl (Xopenex) 0.63 mg IH [id number] [facility] Last Admin: 10/18/17 08:09 Dose: 0.63 mg Megestrol Acetate (Megace) 200 mg PO DAILY [facility] Oxycodone HCl (Oxycodone Immediate Release Tab) 5 mg PO Q6H PRN PRN Reason: Pain, moderate (4-7) Last Admin: 10/18/17 02:44 Dose: 5 mg Pantoprazole Sodium (Protonix Ec Tab) 40 mg PO 0600 [facility] Last Admin: 10/18/17 06:18 Dose: 40 mg Polyethylene Glycol (Miralax) 17 gm PO BID [facility] Sotalol HCl (Betapace) 40 mg PO BID [facility] - Labs Labs: 10/18/17 06:30 10/18/17 06:30 - Additional Findings Additional findings: - Constitutional Appears: Older Than Stated Age, Chronically Ill - Head Exam Head Exam: ATRAUMATIC, NORMOCEPHALIC - Eye Exam Eye Exam: EOMI, PERRL. absent: Conjunctival injection, Nystagmus, Scleral icterus Pupil Exam: NORMAL ACCOMODATION, PERRL. absent: Miosis, Mydriatic, Unequal - ENT Exam ENT Exam: Mucous Membranes Moist - Neck Exam Neck Exam: Full ROM - Respiratory Exam Respiratory Exam: Decreased Breath Sounds - Cardiovascular Exam Cardiovascular Exam: RRR, +S1, +S2. absent: Murmur right sided chest port in place - GI/Abdominal Exam GI & Abdominal Exam: Soft, Normal Bowel Sounds. absent: Guarding, Rigid, Tenderness, Mass, Organomegaly, Rebound - Extremities Exam Extremities Exam: Normal Inspection. absent: Calf Tenderness, Pedal Edema - Back Exam Back Exam: NORMAL INSPECTION - Neurological Exam Neurological Exam: Alert, Awake, Oriented x3 - Psychiatric Exam Psychiatric exam: Normal Affect, Normal Mood - Skin Skin Exam: Dry, Normal Color, Warm Assessment and Plan - Assessment and Plan (Free Text) Assessment: 76 year old male with PMH gastric ulcer, gastritis, admitted for RLL pneumonia, found to have small cell lung cancer with extensive mediastinal and hilar adenopathy and lytic lesions at T7, other vertebral bodies and liver mets, s/p radiation treatments with Dr Iqbal and 3 sessions of chemotherapy. Patient transferred to TCU for rehab. However, patient was found to be leukopenic, ANC < 500, put on neutropenic precautions, transferred to inpatient side for daily granix injections: Neutropenia Small cell lung cancer with metastasis to bone, liver, s/p radiation and chemo session New onset afib Constipation, resolved RLL pneumonia Transaminitis 2/2 likely medication (rocephin) induced Chemotherapy - carboplatin and etoposide Deconditioning s/p chemo - c/w miralax bid. - c/w Megace - pathology report of hilar mass 10/02 showed small cell lung carcinoma - On eliquis 5 mg BID and sotalol for afib. as per cardio and primary team - completed 3/3 chemotherapy sessions with carboplatin and etoposide, last session 10/11 - Will need home oxygen - Abd US showed increased echogenicity of liver parenchyma, 2 separate hypoechoic lesions. 2x1.3 cm in diameter. fatty infiltration - transaminitis improving - Give Neupogen 480 mg sq daily, Day 6. Missed dose 10/17. WIll continue daily injections until ANC>10,000. - monitor daily cbc Case discussed with Dr Lomeli.
[2017-10-18] MEDS: Megestrol Acetate 40 mg/ml Cup PO SCH (10:19)
[2017-10-18] MEDS: POLYETHYLENE GLYCOL 3350 17 GM/Dose PACKET PO SCH ×2 (10:19→17:17)
--- NOTE | 2017-10-18 19:16 | CON ---
Copied To: Jakub Gupta MD Attending MD: Jakub Gupta MD DATE: 10/18/2017 LOCATION: The patient is seen earlier today in 368, bed 2. CHIEF COMPLAINT: Weakness from several days. HISTORY OF PRESENT ILLNESS: This is a 76-year-old male with small-cell lung cancer, history of atrial fibrillation with a rapid ventricular response, history of GI ulcer in a long-time smoker, who was found to have small-cell lung cancer. Just recently, had a CAT scan guided biopsy of the mediastinal and developed pneumothorax requiring chest tube, now is also has a port placed. He has been receiving chemotherapy and had radiation therapy and has completed antibiotic therapy for post-obstructive pneumonitis. Currently continues to be neutropenic; however, no fevers reported. REVIEW OF SYSTEMS: A 12-point review of systems is performed. He does have cough and no worse than usual. No chest pain now. No abdominal pain, diarrhea or constipation. No dysuria or frequency. No headaches or blurred vision. PAST MEDICAL HISTORY: Significant for small-cell lung cancer, atrial fibrillation and rapid ventricular response and new diagnosis of both AFib and small-cell lung cancer and history of GI ulcers. PAST SURGICAL HISTORY: A recent CAT scan guided biopsy of the mediastinum resulting in pneumothorax and chest tube placement and the patient also had port placed on 10/08/2017, which was 10 days ago. ALLERGIES: The patient has no known allergies. CURRENT MEDICATIONS: Reviewed. He is on no antibiotics. He has just completed course of antibiotics for post-obstructive pneumonitis. PHYSICAL EXAMINATION: VITAL SIGNS: Temperature is 97, blood pressure is 130/70, respiratory rate of 20, heart rate of 68. HEENT: Unremarkable. NECK: Supple. LUNGS: Have decreased breath sounds. HEART: Normal S1, S2. ABDOMINAL: Soft, nontender. No rebound. No guarding. LABORATORY EXAMINATION: Reveals the patient's white count is 0.7, hemoglobin of 12, platelets of 111. Chemistries are noted. The differential is noted with 11% monos and 59% lymphocytosis. Chemistries reveals the ALT is 81. Microbiology reveals the blood cultures from 09/24/2017 are negative. The sputum culture is normal bernard. Imaging is reviewed from previous admission and history and physical examination is reviewed. ASSESSMENT AND PLAN: A 76-year-old male with small-cell lung cancer, atrial fibrillation and long-time smoker, gastrointestinal ulcer status post completed antibiotics for post-obstructive pneumonitis and now has neutropenia with a Port-A-Cath, but no fevers thus far. We will hold off any antibiotics. No antibiotics at this time until the patient has fevers and will deserve a repeat pancultures and initiation of antibiotics promptly and we will follow closely with you. Jakub Gupta MD : 10/18/2017 16:29:08
[2017-10-19] MEDS: Levalbuterol 0.63 MG/3 ML Inhal Soln UD IH SCH ×4 (01:15→19:38)
[2017-10-19] MEDS: guaiFENesin-Codeine 100-10mg/5ml Syrup (5 ml) UD PO SCH ×6 (01:48→22:13)
[2017-10-19] MEDS: oxyCODONE 5 mg Immediate Release Tab PO PRN (01:53)
--- NOTE | 2017-10-19 05:07 | CON ---
Copied To: Lenka García MD Attending MD: Lenka García MD DATE: 10/18/2017 PULMONARY CONSULTATION REFERRING PHYSICIAN: Dr. Larkin REASON FOR CONSULTATION: Chronic lung disease, metastatic lung cancer. HISTORY OF PRESENT ILLNESS: This is a 76-year-old gentleman well known to me from previous admission, has a known history of unresectable lung cancer, chronic obstructive lung disease, history of gastric ulcer, recently diagnosed with small cell lung cancer, ended up with pneumothorax which resolved, also has hemoptysis, received a course of radiation therapy and also had a chemotherapy. While in [facility], ended up with pancytopenia, neutropenia, mild cough and shortness of breath, brought into acute site of the hospital. Presently lying in the bed. Family at bedside. Mild cough. No chest pain. No nausea, no vomiting, no diarrhea. No leg pain or leg swelling. PAST MEDICAL HISTORY: As per history of present illness. ALLERGIES: NONE KNOWN. SOCIAL HISTORY: Recently stopped smoking. Denied any alcohol use. FAMILY HISTORY: No significant cardiopulmonary disease reported. MEDICATIONS: He is on Benadryl 25 mg at bedtime p.r.n., sotalol 40 mg twice a day, Eliquis 5 mg twice a day, Megace 200 mg daily, MiraLax 17 g p.o. twice a day, oxycodone immediate release 5 mg every 6 hours p.r.n., Protonix 40 mg daily, Robitussin with codeine 5 mL every 4 hours, Tessalon Perles 100 mg every 8 hours, Xopenex inhaled every 6 hours. REVIEW OF SYSTEMS: No headache, no rhinitis. Mild cough. Gets short of breath. No chest pain. No abdominal pain. No dysuria. No leg pain or leg swelling. PHYSICAL EXAMINATION: GENERAL: Lying in the bed, no acute distress. VITAL SIGNS: Temperature is 98, heart rate 66, respiratory rate is 18, blood pressure 92/53, pulse ox 98% on 2 liters nasal cannula. HEENT: Moist mucous membranes. No ulcer or thrush noted. NECK: Supple. No JVD. LUNGS: Have a few scattered rhonchi, prolonged expiratory phase. HEART: S1 and S2. ABDOMEN: Soft, nontender, no organomegaly. EXTREMITIES: No edema. NEUROLOGIC: Awake and alert, follows simple commands. LABORATORY DATA: Shows hemoglobin 12.2, hematocrit 36.6, WBC 0.7, platelet is 111. Sodium 132, potassium 4.7, chloride 99, bicarbonate 27, BUN 19, creatinine 0.6, glucose 129, calcium 8.7, total bili 0.5, AST 28, ALT 81, alk phos is 79. Albumin is 3. ASSESSMENT AND PLAN: Unresectable lung cancer status post radiation and chemotherapy, now ended up with neutropenia, chronic obstructive lung disease, status post paroxysmal atrial fibrillation, presently in sinus rhythm, status post pneumothorax after biopsy, also status post hemoptysis. Pulmonary point of view, doing okay. Continue bronchodilator, gastric prophylaxis, deep venous thrombosis prophylaxis. Oncology/Hematology followup. Follow up CBC in the morning. Thank you and we will follow with you. Lenka García MD
[2017-10-19] MEDS: Pantoprazole 40 mg EC Tab PO SCH (06:19)
[2017-10-19 07:10] LABS: EOS % 1.9 % (1.5-5.0); GRAN # 0.48 (1.4-6.5); GRAN % 46.6 % (50.0-68.0); HEMOGLOBIN 11.5 g/dL (14.0-18.0); LYMPH # 0.4 (1.2-3.4); MEAN CELL VOLUME 84.3 fl (80.0-105.0); MEAN CORPUSCULAR HEMOGLOBIN 28.6 pg (25.0-35.0); MEAN CORPUSCULAR HGB CONC 33.9 g/dl (31.0-37.0); MEAN PLATELET VOLUME 10.2 fl (7.0-11.0); MONO # 0.2 (0.1-0.6); MONO % 17.5 % (1.0-6.0); RBC 4.02 10^6/uL (3.5-6.1); RED CELL DISTRIBUTION WIDTH 13.9 % (11.5-14.5)
[2017-10-19 07:28] LABS: ALB/GLOB RATIO 1.1 (1.1-1.8); ALBUMIN 2.9 g/dL (3.0-4.8); ALT/SGPT 87 U/L (7-56); AST/SGOT 39 U/L (17-59); BLOOD UREA NITROGEN 18 mg/dL (7-21); CALCIUM 8.7 mg/dL (8.4-10.5); GFR AFRICAN-AMERICAN > 60; GFR NON-AFRICAN AMERICAN > 60
[2017-10-19] MEDS: Megestrol Acetate 40 mg/ml Cup PO SCH (09:59)
[2017-10-19] MEDS: POLYETHYLENE GLYCOL 3350 17 GM/Dose PACKET PO SCH ×2 (10:00→17:14)
--- NOTE | 2017-10-19 12:16 | CP.PCM.PN ---
Subjective - Date & Time of Evaluation Date of Evaluation: 10/19/17 Time of Evaluation: 12:14 - Subjective Subjective: Sobeida Dukes, PGY2, Heme-Onc Progress Note for Dr Lomeli/Dr Bernard: This is a 76 year old male with PMH gastric ulcer, gastritis, admitted for pneumonia, found to have small cell lung carcinoma with extensive mediastinal and hilar adenopathy and lytic lesions at T7, other vertebral bodies and liver mets, s/p 10 radiation treatments and 3 chemotherapy sessions. Patient now found to be neutropenic, put on neutropenic precautions. Patient transferred back to inpatient side from TCU, for granix injections until patient is stabilized. Patient seen and examined at bedside. No acute events overnight. Patient reports mild weakness, denies pain. Reports mild cough overnight, controlled with robitussin, instructed nurse to give robitussin at night time. Denies hemoptysis, fevers, chills, nausea, vomiting, hematochezia, abdominal pain, hematochezia, mucosal bleeding. Had BM this AM. Reports that he has good appetite. Objective - Vital Signs/Intake and Output Vital Signs (last 24 hours): Temp Pulse Resp BP Pulse Ox 97.7 F 67 20 103/60 97 10/19/17 08:13 10/19/17 08:13 10/19/17 08:13 10/19/17 08:13 10/19/17 08:13 Intake and Output: 10/19/17 10/19/17 06:59 18:59 Intake Total 480 Balance 480 - Medications Medications: Current Medications Apixaban (Eliquis) 5 mg PO BID [facility] PRN Reason: Protocol Last Admin: 10/19/17 09:59 Dose: 5 mg Benzonatate (Tessalon Perles) 100 mg PO Q8 [facility] Last Admin: 10/19/17 06:19 Dose: 100 mg Diphenhydramine HCl (Benadryl) 25 mg PO HS PRN PRN Reason: Insomnia Last Admin: 10/18/17 22:00 Dose: 25 mg Guaifenesin/Codeine Phosphate (Robitussin W/Codeine) 5 ml PO Q4H [facility] Last Admin: 10/19/17 10:02 Dose: 5 ml Levalbuterol HCl (Xopenex) 0.63 mg IH [id number] [facility] Last Admin: 10/19/17 07:47 Dose: 0.63 mg Megestrol Acetate (Megace) 200 mg PO DAILY [facility] Last Admin: 10/19/17 09:59 Dose: 200 mg Oxycodone HCl (Oxycodone Immediate Release Tab) 5 mg PO Q6H PRN PRN Reason: Pain, moderate (4-7) Last Admin: 10/19/17 01:53 Dose: 5 mg Pantoprazole Sodium (Protonix Ec Tab) 40 mg PO 0600 [facility] Last Admin: 10/19/17 06:19 Dose: 40 mg Polyethylene Glycol (Miralax) 17 gm PO BID [facility] Last Admin: 10/19/17 10:00 Dose: 17 gm Sotalol HCl (Betapace) 40 mg PO BID [facility] - Labs Labs: 10/19/17 06:30 10/19/17 06:30 - Additional Findings Additional findings: - Constitutional Appears: Older Than Stated Age, Chronically Ill - Head Exam Head Exam: ATRAUMATIC, NORMOCEPHALIC - Eye Exam Eye Exam: EOMI, PERRL. absent: Conjunctival injection, Nystagmus, Scleral icterus Pupil Exam: NORMAL ACCOMODATION, PERRL. absent: Miosis, Mydriatic, Unequal - ENT Exam ENT Exam: Mucous Membranes Moist - Neck Exam Neck Exam: Full ROM - Respiratory Exam Respiratory Exam: Decreased Breath Sounds - Cardiovascular Exam Cardiovascular Exam: RRR, +S1, +S2. absent: Murmur right sided chest port in place - GI/Abdominal Exam GI & Abdominal Exam: Soft, Normal Bowel Sounds. absent: Guarding, Rigid, Tenderness, Mass, Organomegaly, Rebound - Extremities Exam Extremities Exam: Normal Inspection. absent: Calf Tenderness, Pedal Edema - Back Exam Back Exam: NORMAL INSPECTION - Neurological Exam Neurological Exam: Alert, Awake, Oriented x3 - Psychiatric Exam Psychiatric exam: Normal Affect, Normal Mood - Skin Skin Exam: Dry, Normal Color, Warm Assessment and Plan - Assessment and Plan (Free Text) Assessment: 76 year old male with PMH gastric ulcer, gastritis, admitted for RLL pneumonia, found to have small cell lung cancer with extensive mediastinal and hilar adenopathy and lytic lesions at T7, other vertebral bodies and liver mets, s/p radiation treatments with Dr Iqbal and 3 sessions of chemotherapy. Patient transferred to TCU for rehab. However, patient was found to be leukopenic, ANC < 500, put on neutropenic precautions, transferred to inpatient side for daily granix injections: Neutropenia Small cell lung cancer with metastasis to bone, liver, s/p radiation and chemo session New onset afib Constipation, resolved RLL pneumonia Transaminitis 2/2 likely medication (rocephin) induced Chemotherapy - carboplatin and etoposide Deconditioning s/p chemo - c/w miralax bid. - c/w Megace - pathology report of hilar mass 10/02 showed small cell lung carcinoma - On eliquis 5 mg BID and sotalol for afib. as per cardio and primary team - completed 3/3 chemotherapy sessions with carboplatin and etoposide, last session 10/11 - Will need home oxygen - Abd US showed increased echogenicity of liver parenchyma, 2 separate hypoechoic lesions. 2x1.3 cm in diameter. fatty infiltration - transaminitis improving - Give Neupogen 480 mg sq daily, Day 6. Missed dose 10/17. WIll continue daily injections until ANC>10,000. - ANC 480 today - monitor daily cbc Case discussed with Dr Lomeli.
--- NOTE | 2017-10-19 12:57 | CP.PCM.PN ---
<Kai Matos - Last Filed: 10/19/17 12:44> Subjective - Date & Time of Evaluation Date of Evaluation: 10/19/17 Time of Evaluation: 12:45 - Subjective Subjective: Kai Matos DO PGY1 Internal Medicine [employer] - Hospital Progress Note Patient was seen and examined this AM at bedside on med/surg floor w/ neutropenic precautions No acute events reported overnight, patient is stable, voicing no compalints of fevers, chills, worsening cough, abd pain, diarrhea. No s/s of infection can be appreciated at this time. Objective - Vital Signs/Intake and Output Vital Signs (last 24 hours): Temp Pulse Resp BP Pulse Ox 97.7 F 67 20 103/60 97 10/19/17 08:13 10/19/17 08:13 10/19/17 08:13 10/19/17 08:13 10/19/17 08:13 Intake and Output: 10/19/17 10/19/17 06:59 18:59 Intake Total 480 Balance 480 - Medications Medications: Current Medications Apixaban (Eliquis) 5 mg PO BID [facility] PRN Reason: Protocol Last Admin: 10/19/17 09:59 Dose: 5 mg Benzonatate (Tessalon Perles) 100 mg PO Q8 [facility] Last Admin: 10/19/17 06:19 Dose: 100 mg Diphenhydramine HCl (Benadryl) 25 mg PO HS PRN PRN Reason: Insomnia Last Admin: 10/18/17 22:00 Dose: 25 mg Guaifenesin/Codeine Phosphate (Robitussin W/Codeine) 5 ml PO Q4H [facility] Last Admin: 10/19/17 10:02 Dose: 5 ml Levalbuterol HCl (Xopenex) 0.63 mg IH [id number] [facility] Last Admin: 10/19/17 07:47 Dose: 0.63 mg Megestrol Acetate (Megace) 200 mg PO DAILY [facility] Last Admin: 10/19/17 09:59 Dose: 200 mg Oxycodone HCl (Oxycodone Immediate Release Tab) 5 mg PO Q6H PRN PRN Reason: Pain, moderate (4-7) Last Admin: 10/19/17 01:53 Dose: 5 mg Pantoprazole Sodium (Protonix Ec Tab) 40 mg PO 0600 [facility] Last Admin: 10/19/17 06:19 Dose: 40 mg Polyethylene Glycol (Miralax) 17 gm PO BID [facility] Last Admin: 10/19/17 10:00 Dose: 17 gm Sotalol HCl (Betapace) 40 mg PO BID [facility] - Labs Labs: 10/19/17 06:30 10/19/17 06:30 Physical Exam - Constitutional Appears: Non-toxic, No Acute Distress - Head Exam Head Exam: ATRAUMATIC, NORMAL INSPECTION, NORMOCEPHALIC - Eye Exam Eye Exam: EOMI, Normal appearance, PERRL. absent: Scleral icterus - ENT Exam ENT Exam: Mucous Membranes Moist - Respiratory Exam Additional comments: RLL/ RML crackles L lung chacon CTA - Cardiovascular Exam Cardiovascular Exam: REGULAR RHYTHM, RRR, +S1, +S2. absent: Systolic Murmur - GI/Abdominal Exam GI & Abdominal Exam: Normal Bowel Sounds, Soft. absent: Tenderness - Extremities Exam Extremities exam: Positive for: normal inspection, pedal pulses present (2+ TP/ DP BL). Negative for: pedal edema, tenderness - Back Exam Back exam: absent: CVA tenderness (L), CVA tenderness (R) - Neurological Exam Neurological exam: Alert, CN II-XII Intact, Oriented x3 - Psychiatric Exam Psychiatric exam: Normal Affect, Normal Mood - Skin Skin Exam: Dry, Intact, Normal Color, Warm Assessment and Plan - Assessment and Plan (Free Text) Assessment: 76M PMH of GERD presented to [facility] 09/24 on w/ SOB and productive cough subsequently found have postobstructive pneumonia 2/2 new onset small cell lung cancer. Hospital course complicated by transaminitis and paroxysmal afib. Patient is status post first round of chemo therapy as of 10/11. Hospital course currently complicated by Neutropenia. Small Cell Lung Cancer s/p Chemo/Radiation treatments CT chest 09/25: extensive mediastinal and hilar lymphadenopathy suspicious for underlying pulmonary malignancy. Lytic lesion at T7 consistent with metastatic disease. Scattered sclerotic lesions. Extensive R lower lobe pneumonia. Ct abd/ pelvis 09/25: scattered osteoblastic lesions in multiple vertebral bodies, posterior elements and ribs. Age-indeterminate fracture of L4 superior end-plate , may be acute and/or pathologic. Low density lesion in anterolateral liver, metastvedasis suspected. Ct head 09/27: no evidence of metastatic disease, no acute intracranial findings Bone scan 09/26: findings consistent with bony metastatic disease Patient underwent CT guided biopsy of lung mass on 10/01 complicated by pneumothorax now resolved; chest tube was placed due to pneumothorax and has now been removed Pathology of hilar mass - small cell lung CA Radiation completed on 10/15; Patient is to follow up with Dr. Farida Dupont 6-8 weeks after completion of radiation Patient completed first round of chemo therapy on 10/11. Cisplatin based therapy occurring Q28 days. Neutropenia Afebrile this AM; No s/s of infection Currently on neutropenic precautions; ANC today 480 from 170 Currently receiving granix QD as per Dr. Lomeil Will continue granix until ANC >10,000 as per heme onc ID Reccs no indication prophylactic abx therapy at this time, Continue monitoring patient for s/s infection; no need for cultures at this time New-onset atrial fibrillation with rapid ventricular response Rapid response called on 09/26/17; pt had additional episode overnight that converted back to normal sinus rhythm spontaneously Patient was borderline hypotensive on Sotalol 80mg BID; Patient started on Sotalol 40 BID; His pressures are decreased 100s/50s; heart rate stable; asymptomatic C/w anticoagulation w/ eliquis 5mg BID Cardio consulted (Dr. Chirinos), recs appreciated Transaminitis - Resolving LFTs are stable today; minor elevation of ALT Post-Obstructive Pneumonia -Resolving CXR on admission + for PNA Patient afebrile; asymptomatic at this time C/w Xopenex as per pulm reccs C/w Robitussin+Codeine PRN and Tessalon perles PRN ID Following Pulm Following Electrolyte abnormalities HyperK/ Hypophos / Hyper mag Continue following levels; treat/replete as necessary Treat hypophos w/ sodium phos as to not upset other electrolyte balances Nephrology (Dr Barrera) has signed off DVT/GI ppx: SCD /Protonix Disposition plan: Patient has completed first round of chemotherapy, he is currently on med/surg floor due to neutropenia; will continue neutropenic precautions and monitor ANC. May require follow up PT/OT re-evaluation for placement moving forward. Patient seen, examined, and case discussed w/ attending physician Dr. Chaya Matos DO PGY1 Internal Medicine [employer] - Pager [phone] <Tru Larkin - Last Filed: 08/17/18 13:19> Objective - Vital Signs/Intake and Output Vital Signs (last 24 hours): Temp Pulse Resp BP Pulse Ox 97.7 F 67 20 103/60 97 10/19/17 08:13 10/19/17 08:13 10/19/17 08:13 10/19/17 08:13 10/19/17 08:13 Intake and Output: 10/19/17 10/19/17 06:59 18:59 Intake Total 480 Balance 480 - Medications Medications: Current Medications Apixaban (Eliquis) 5 mg PO BID [facility] PRN Reason: Protocol Last Admin: 10/19/17 09:59 Dose: 5 mg Benzonatate (Tessalon Perles) 100 mg PO Q8 [facility] Last Admin: 10/19/17 06:19 Dose: 100 mg Diphenhydramine HCl (Benadryl) 25 mg PO HS PRN PRN Reason: Insomnia Last Admin: 10/18/17 22:00 Dose: 25 mg Guaifenesin/Codeine Phosphate (Robitussin W/Codeine) 5 ml PO Q4H [facility] Last Admin: 10/19/17 10:02 Dose: 5 ml Levalbuterol HCl (Xopenex) 0.63 mg IH [id number] [facility] Last Admin: 10/19/17 07:47 Dose: 0.63 mg Megestrol Acetate (Megace) 200 mg PO DAILY [facility] Last Admin: 10/19/17 09:59 Dose: 200 mg Oxycodone HCl (Oxycodone Immediate Release Tab) 5 mg PO Q6H PRN PRN Reason: Pain, moderate (4-7) Last Admin: 10/19/17 01:53 Dose: 5 mg Pantoprazole Sodium (Protonix Ec Tab) 40 mg PO 0600 [facility] Last Admin: 10/19/17 06:19 Dose: 40 mg Polyethylene Glycol (Miralax) 17 gm PO BID [facility] Last Admin: 10/19/17 10:00 Dose: 17 gm Sotalol HCl (Betapace) 40 mg PO BID [facility] - Labs Labs: 10/19/17 06:30 10/19/17 06:30 Attending/Attestation - Attestation I have personally seen and examined this patient.: Yes I have fully participated in the care of the patient.: Yes I have reviewed all pertinent clinical information, including history, physical exam and plan: Yes Notes (Text): 10/19/17 13:16 76 year old male with past medical history of prior tobacco use who presented with complaint of cough and shortness of breath. CT chest study showed right lower lobe pneumonia, diffuse moderate mediastianal MYA and extrapulmonary lesions suggestive of metastatic process. CT abd/pelvis showed liver lesion and possible lumbar spine metastasis. LFTs were initially elevated but improved. Patient had lung biopsy which showed small cell carcinoma for which he was started on chemotherapy and radiation. He is also on eliquis and sotalol for paroxysmal afib. Heart rate is controlled. He was transferred to back to medical floor earlier this week due to worsening leukopenia. He is on granix. Hematology/oncology is following. WBC is 1.0 today. ID evaluation was appreciated as well; no need for antibiotics unless febrile. Continue with neutropenic precautions. Tru Larkin MD Hospitalist.
--- NOTE | 2017-10-19 15:55 | CP.PCM.PN ---
Subjective - Date & Time of Evaluation Date of Evaluation: 10/19/17 Time of Evaluation: 11:45 - Subjective Subjective: Comfortable, no fevers, no diarrhea. Objective - Vital Signs/Intake and Output Vital Signs (last 24 hours): Temp Pulse Resp BP Pulse Ox 97.7 F 67 20 103/60 97 10/19/17 08:13 10/19/17 08:13 10/19/17 08:13 10/19/17 08:13 10/19/17 08:13 Intake and Output: 10/19/17 10/19/17 06:59 18:59 Intake Total 480 Balance 480 - Medications Medications: Current Medications Apixaban (Eliquis) 5 mg PO BID [facility] PRN Reason: Protocol Last Admin: 10/19/17 09:59 Dose: 5 mg Benzonatate (Tessalon Perles) 100 mg PO Q8 [facility] Last Admin: 10/19/17 14:07 Dose: 100 mg Diphenhydramine HCl (Benadryl) 25 mg PO HS PRN PRN Reason: Insomnia Last Admin: 10/18/17 22:00 Dose: 25 mg Guaifenesin/Codeine Phosphate (Robitussin W/Codeine) 5 ml PO Q4H [facility] Last Admin: 10/19/17 14:07 Dose: 5 ml Levalbuterol HCl (Xopenex) 0.63 mg IH [id number] [facility] Last Admin: 10/19/17 13:46 Dose: Not Given Megestrol Acetate (Megace) 200 mg PO DAILY [facility] Last Admin: 10/19/17 09:59 Dose: 200 mg Oxycodone HCl (Oxycodone Immediate Release Tab) 5 mg PO Q6H PRN PRN Reason: Pain, moderate (4-7) Last Admin: 10/19/17 01:53 Dose: 5 mg Pantoprazole Sodium (Protonix Ec Tab) 40 mg PO 0600 [facility] Last Admin: 10/19/17 06:19 Dose: 40 mg Polyethylene Glycol (Miralax) 17 gm PO BID [facility] Last Admin: 10/19/17 10:00 Dose: 17 gm Sotalol HCl (Betapace) 40 mg PO BID [facility] - Labs Labs: 10/19/17 06:30 10/19/17 06:30 - Constitutional Appears: Chronically Ill - Head Exam Head Exam: NORMAL INSPECTION - Respiratory Exam Respiratory Exam: Decreased Breath Sounds - Cardiovascular Exam Cardiovascular Exam: +S1, +S2 - GI/Abdominal Exam GI & Abdominal Exam: Soft. absent: Tenderness Assessment and Plan - Assessment and Plan (Free Text) Plan: Assessment neutropenia without fever small cell lung cancer atrial fibrillation significant smoking history S/P port-a-cath placement Plan continue to monitor off antibiotics since the patient does not have fever and will promptly institute antibiotics if patient develops fevers overall prognosis is poor
[2017-10-19] MEDS ORDERED: Albuterol-Ipratrop 3 mg / 0.5 (3 ml) UD IH PRN (17:20)
--- NOTE | 2017-10-19 18:47 | PN ---
Copied To: Lenka García MD Attending MD: Lenka García MD DATE: 10/19/2017 PULMONARY PROGRESS NOTE REFERRING PHYSICIAN: Dr. Larkin. SUBJECTIVE: He is lying in the bed, sleepy, arousable. Night was unremarkable. Mild cough. No shortness breath or chest pain. No nausea, vomiting, or diarrhea. No leg pain or leg swelling. PHYSICAL EXAMINATION: GENERAL: In no acute distress. VITAL SIGNS: Temperature is 98, heart rate 68, respiratory rate is 20, blood pressure 95/55, pulse of 95% on 2 liters nasal cannula. HEENT: Moist mucous membranes. No ulcer or thrush noted. NECK: Supple. No JVD. LUNGS: Have a few scattered rhonchi. HEART: S1, S2. ABDOMEN: Soft, nontender. No organomegaly. EXTREMITIES: No edema. NEUROLOGICAL: Sleepy, arousable. Follows simple command. MEDICATIONS: He is on Benadryl 25 mg at bedtime p.r.n., sotalol 40 mg twice a day, Eliquis 5 mg twice a day, Megace 200 mg daily, MiraLax 17 g twice a day, oxycodone immediate release 5 mg every 6 hours p.r.n., Protonix 40 mg daily, Robitussin with codeine 5 mL every 4 hours, Tessalon Perles 100 mg every 8 hours, Xopenex inhaled every 6 hours. LABORATORY DATA: Reviewed and shows hemoglobin 11.5, hematocrit 33.9, WBC 1, platelet is 100. Sodium 134, potassium 4.5, chloride 100, bicarbonate 27, BUN 18, creatinine 0.8, glucose 137, calcium 8.7. AST 39, ALT 87, alkaline phosphatase is 80. Albumin is 2.9. IMPRESSION AND PLAN: Neutropenic, status post chemotherapy and radiation therapy, chronic obstructive lung disease, has unresectable small cell lung cancer, paroxysmal atrial fibrillation. We will add DuoNeb every 6 hours p.r.n. for shortness of breath and cough. Gastric prophylaxis. SCD to lower extremity. Follow up CBC. Thank you and we will follow with you. Lenka García MD [facility] # [phone]
[2017-10-20] MEDS: Levalbuterol 0.63 MG/3 ML Inhal Soln UD IH SCH ×4 (01:24→19:59)
[2017-10-20] MEDS: oxyCODONE 5 mg Immediate Release Tab PO PRN (01:37)
[2017-10-20] MEDS: guaiFENesin-Codeine 100-10mg/5ml Syrup (5 ml) UD PO SCH ×6 (02:08→21:46)
[2017-10-20] MEDS: Pantoprazole 40 mg EC Tab PO SCH (05:46)
[2017-10-20 06:57] VITALS: RESP 20
[2017-10-20 07:08] LABS: EOS # 0.1 (0.0-0.7); EOS % 1.4 % (1.5-5.0); GRAN # 2.72 (1.4-6.5); GRAN % 75.8 % (50.0-68.0); HEMOGLOBIN 11.9 g/dL (14.0-18.0); LYMPH # 0.5 (1.2-3.4); LYMPH % 12.8 % (22.0-35.0); MEAN CELL VOLUME 84.4 fl (80.0-105.0); MEAN CORPUSCULAR HEMOGLOBIN 28.5 pg (25.0-35.0); MEAN CORPUSCULAR HGB CONC 33.8 g/dl (31.0-37.0); MONO # 0.4 (0.1-0.6); RBC 4.17 10^6/uL (3.5-6.1); RED CELL DISTRIBUTION WIDTH 13.9 % (11.5-14.5); WHITE BLOOD COUNT 3.6 10^3/ul (4.5-11.0)
[2017-10-20 07:14] LABS: ALB/GLOB RATIO 1.1 (1.1-1.8); ALT/SGPT 103 U/L (7-56); AST/SGOT 44 U/L (17-59); BLOOD UREA NITROGEN 18 mg/dL (7-21); CALCIUM 8.8 mg/dL (8.4-10.5); GFR AFRICAN-AMERICAN > 60; GFR NON-AFRICAN AMERICAN > 60
[2017-10-20] MEDS: Megestrol Acetate 40 mg/ml Cup PO SCH (11:31)
[2017-10-20] MEDS: POLYETHYLENE GLYCOL 3350 17 GM/Dose PACKET PO SCH ×2 (11:32→17:50)
--- NOTE | 2017-10-20 12:14 | CP.PCM.PN ---
<Leon Hassan - Last Filed: 10/20/17 12:26> Subjective - Date & Time of Evaluation Date of Evaluation: 10/20/17 Time of Evaluation: 12:10 - Subjective Subjective: Leon Hassan D.O PGY-1, Internal Medicine progress note for Dr. Larkin Patient was examined at bedside, no acute overnight events. Patient offers no new complaints at this time. Patient is still on neutropenic precautions. Denies fevers, chills, chest pain, shortness of breath, abdominal pain, N/V/D. Objective - Vital Signs/Intake and Output Vital Signs (last 24 hours): Temp Pulse Resp BP Pulse Ox 97.8 F 67 20 108/53 L 99 10/20/17 06:00 10/20/17 06:00 10/20/17 06:00 10/20/17 06:00 10/20/17 06:00 - Medications Medications: Current Medications Apixaban (Eliquis) 5 mg PO BID [facility] PRN Reason: Protocol Last Admin: 10/20/17 11:30 Dose: 5 mg Benzonatate (Tessalon Perles) 100 mg PO Q8 [facility] Last Admin: 10/20/17 05:47 Dose: 100 mg Diphenhydramine HCl (Benadryl) 25 mg PO HS PRN PRN Reason: Insomnia Last Admin: 10/19/17 22:13 Dose: 25 mg Guaifenesin/Codeine Phosphate (Robitussin W/Codeine) 5 ml PO Q4H [facility] Last Admin: 10/20/17 11:33 Dose: 5 ml Levalbuterol HCl (Xopenex) 0.63 mg IH [id number] [facility] Last Admin: 10/20/17 08:55 Dose: 0.63 mg Megestrol Acetate (Megace) 200 mg PO DAILY [facility] Last Admin: 10/20/17 11:31 Dose: 200 mg Oxycodone HCl (Oxycodone Immediate Release Tab) 5 mg PO Q6H PRN PRN Reason: Pain, moderate (4-7) Last Admin: 10/20/17 01:37 Dose: 5 mg Pantoprazole Sodium (Protonix Ec Tab) 40 mg PO 0600 [facility] Last Admin: 10/20/17 05:46 Dose: 40 mg Polyethylene Glycol (Miralax) 17 gm PO BID [facility] Last Admin: 10/20/17 11:32 Dose: 17 gm Sotalol HCl (Betapace) 40 mg PO BID [facility] Last Admin: 10/20/17 11:30 Dose: 40 mg - Labs Labs: 10/20/17 06:30 10/20/17 06:30 - Constitutional Appears: No Acute Distress - Head Exam Head Exam: ATRAUMATIC, NORMAL INSPECTION - Eye Exam Eye Exam: Normal appearance - ENT Exam ENT Exam: Mucous Membranes Moist - Respiratory Exam Respiratory Exam: Decreased Breath Sounds, Clear to Ausculation Bilateral. absent: Rales, Wheezes, Stridor - Cardiovascular Exam Cardiovascular Exam: REGULAR RHYTHM, +S1, +S2. absent: Gallop, Rubs, Murmur - GI/Abdominal Exam GI & Abdominal Exam: Soft, Normal Bowel Sounds. absent: Tenderness - Extremities Exam Extremities Exam: absent: Calf Tenderness, Pedal Edema - Neurological Exam Neurological Exam: Alert, Awake, Oriented x3 - Psychiatric Exam Psychiatric exam: Normal Affect, Normal Mood - Skin Skin Exam: Dry, Intact, Normal Color, Warm Assessment and Plan - Assessment and Plan (Free Text) Assessment: Mr. Layton is a 76 year old male with PMH of GERD presented to [facility] ED on 09/24 with SOB and productive cough subsequently found have post-obstructive pneumonia 2/2 new onset small cell lung cancer. Hospital course complicated by transaminitis and paroxysmal afib. Patient is status post first round of chemo therapy as of 10/11. Hospital course currently complicated by Neutropenia. Plan: Small Cell Lung Cancer s/p Chemo/Radiation treatments - CT chest (09/25): extensive mediastinal and hilar lymphadenopathy suspicious for underlying pulmonary malignancy. Lytic lesion at T7 consistent with metastatic disease. Scattered sclerotic lesions. Extensive R lower lobe pneumonia. Ct abd/pelvis 09/25: scattered osteoblastic lesions in multiple vertebral bodies, posterior elements and ribs. Age-indeterminate fracture of L4 superior end-plate, may be acute and/or pathologic. Low density lesion in anterolateral liver, metastvedasis suspected. Ct head 09/27: no evidence of metastatic disease, no acute intracranial findings - Bone scan (09/26): findings consistent with bony metastatic disease Patient underwent CT guided biopsy of lung mass on 10/01 complicated by pneumothorax now resolved; chest tube was placed due to pneumothorax and has now been removed Pathology of hilar mass - small cell lung CA Radiation completed on 10/15; Patient is to follow up with Dr. Farida Dupont 6-8 weeks after completion of radiation Patient completed first round of chemo therapy on 10/11. Cisplatin based therapy occurring Q28 days. Neutropenia - Afebrile this AM; No s/s of infection - Currently on neutropenic precautions; ANC today 2720 from 480- Will see the next CBC and consider discontinuing neutropenic precaution - Currently receiving granix QD as per Dr. Lomeli - Will continue granix until ANC >10,000 as per heme onc - As per ID, no indication for prophylactic abx therapy at this time- continue monitoring patient for s/s infection New-onset atrial fibrillation with rapid ventricular response - Rapid response called on 09/26/17; pt had additional episode overnight that converted back to normal sinus rhythm spontaneously - Heart rate stable; asymptomatic - C/w Sotalol 80mg BID (with parameters) ;continue to monitor blood pressure - C/w Eliquis 5mg BID - Cardio consulted (Dr. Chirinos) Transaminitis - ALT mildly elevated- trending up - Continue to monitor Post-Obstructive Pneumonia -Resolving - CXR on admission + for PNA - Patient afebrile; asymptomatic at this time - C/w Xopenex Q6 as per pulm reccs - C/w Robitussin+Codeine 5ml Q4 and Tessalon perles 100mg Q8 - ID Following - Pulm Following DVT/GI ppx: SCD /Protonix Disposition plan: Patient has completed first round of chemotherapy, he is currently on med/surg floor due to neutropenia; will continue neutropenic precautions and monitor ANC. May require follow up PT/OT re-evaluation for placement moving forward. Patient seen, examined, and case discussed w/ attending physician Dr. Larkin <Tru Larkin - Last Filed: 10/20/17 13:09> Objective - Vital Signs/Intake and Output Vital Signs (last 24 hours): Temp Pulse Resp BP Pulse Ox 97.8 F 67 20 108/53 L 99 10/20/17 06:00 10/20/17 06:00 10/20/17 06:00 10/20/17 06:00 10/20/17 06:00 - Medications Medications: Current Medications Apixaban (Eliquis) 5 mg PO BID [facility] PRN Reason: Protocol Last Admin: 10/20/17 11:30 Dose: 5 mg Benzonatate (Tessalon Perles) 100 mg PO Q8 [facility] Last Admin: 10/20/17 05:47 Dose: 100 mg Diphenhydramine HCl (Benadryl) 25 mg PO HS PRN PRN Reason: Insomnia Last Admin: 10/19/17 22:13 Dose: 25 mg Guaifenesin/Codeine Phosphate (Robitussin W/Codeine) 5 ml PO Q4H [facility] Last Admin: 10/20/17 11:33 Dose: 5 ml Levalbuterol HCl (Xopenex) 0.63 mg IH [id number] [facility] Last Admin: 10/20/17 08:55 Dose: 0.63 mg Megestrol Acetate (Megace) 200 mg PO DAILY [facility] Last Admin: 10/20/17 11:31 Dose: 200 mg Oxycodone HCl (Oxycodone Immediate Release Tab) 5 mg PO Q6H PRN PRN Reason: Pain, moderate (4-7) Last Admin: 10/20/17 01:37 Dose: 5 mg Pantoprazole Sodium (Protonix Ec Tab) 40 mg PO 0600 [facility] Last Admin: 10/20/17 05:46 Dose: 40 mg Polyethylene Glycol (Miralax) 17 gm PO BID [facility] Last Admin: 10/20/17 11:32 Dose: 17 gm Sotalol HCl (Betapace) 40 mg PO BID [facility] Last Admin: 10/20/17 11:30 Dose: 40 mg - Labs Labs: 10/20/17 06:30 10/20/17 06:30 Attending/Attestation - Attestation I have personally seen and examined this patient.: Yes I have fully participated in the care of the patient.: Yes I have reviewed all pertinent clinical information, including history, physical exam and plan: Yes Notes (Text): 10/20/17 13:07 76 year old male with past medical history of prior tobacco use who presented with complaint of cough and shortness of breath. CT chest study showed right lower lobe pneumonia, diffuse moderate mediastianal MYA and extrapulmonary lesions suggestive of metastatic process. CT abd/pelvis showed liver lesion and possible lumbar spine metastasis. LFTs were initially elevated but improved. Patient had lung biopsy which showed small cell carcinoma for which he was started on chemotherapy and radiation. He is also on eliquis and sotalol for paroxysmal afib. Heart rate is controlled. He was transferred to back to medical floor earlier this week due to worsening leukopenia. He is on granix. Hematology/oncology is following. WBC is improving to 3.6 today. Tru Larkin MD Hospitalist.
[2017-10-20 13:21] LABS: BASO # 0.01 K/mm3 (0.0-2.0); BASO % 0.2 % (0.0-3.0); EOS % 0.8 % (1.5-5.0); GRAN # 3.67 (1.4-6.5); GRAN % 75.4 % (50.0-68.0); LYMPH # 0.6 (1.2-3.4); LYMPH % 11.3 % (22.0-35.0); MEAN CELL VOLUME 85.4 fl (80.0-105.0); MEAN CORPUSCULAR HEMOGLOBIN 29.3 pg (25.0-35.0); MEAN CORPUSCULAR HGB CONC 34.3 g/dl (31.0-37.0); MEAN PLATELET VOLUME 9.9 fl (7.0-11.0); MONO # 0.6 (0.1-0.6); MONO % 12.3 % (1.0-6.0); RBC 4.44 10^6/uL (3.5-6.1); WHITE BLOOD COUNT 4.9 10^3/ul (4.5-11.0)
--- NOTE | 2017-10-20 13:23 | PN ---
Copied To: Jakub Gupta MD Attending MD: Jakub Gupta MD DATE: 10/20/2017 SUBJECTIVE: The patient is in bed, in no acute distress, nontoxic. PHYSICAL EXAMINATION: VITAL SIGNS: Temperature is 97, blood pressure is 108/50, respiratory rate of 20. HEENT: Unremarkable. NECK: Supple. LUNGS: Have decreased breath sounds. HEART: Normal S1, S2. ABDOMEN: Soft, nontender. LABORATORY DATA: Laboratory examination reveals the patient's white count of 3.6, hemoglobin of 11 and platelets of 84. Chemistries are noted. Microbiology is not done and review of orders reveals the patient to be off of antibiotics. ASSESSMENT AND PLAN: A 76-year-old male with neutropenia, without any fevers, small cell lung cancer, atrial fibrillation, significant smoking history, status post Port-A-Cath placement, off of antibiotics, afebrile. If the patient does have fevers, should have workup. At this point, the neutropenia is resolved with white count this morning at 3.6 with an absolute granulocyte count of over 2720. Jakub Gupta MD
--- NOTE | 2017-10-20 20:58 | PN ---
Copied To: Lenka García MD Attending MD: Lenka García MD DATE: 10/20/2017 PULMONARY PROGRESS NOTE REFERRING PHYSICIAN: Dr. Larkin. SUBJECTIVE: He is out of bed to chair. Feels okay. Mild cough, occasional sputum production. No nausea, vomiting, diarrhea, leg pain or leg swelling. PHYSICAL EXAMINATION: GENERAL: In no acute distress. VITAL SIGNS: Temperature is 98, heart rate 68, respiratory rate is 20, blood pressure 95/53, pulse ox 99% on 2 liters nasal cannula. HEENT: Moist mucous membranes. No ulcer or thrush. NECK: Supple. No JVD. LUNGS: Have a fair airflow with rhonchi. HEART: S1, S2. ABDOMEN: Soft, nontender. No organomegaly. EXTREMITIES: No edema. NEUROLOGICAL: Awake, alert. Follows simple command. MEDICATIONS: He is on Benadryl 25 mg at bedtime p.r.n., Betapace 40 twice a day, Eliquis 5 mg twice a day, Megace 200 mg daily, MiraLax 17 g twice a day, oxycodone immediate release 5 mg every 6 hours p.r.n., Protonix 40 mg daily, Robitussin with codeine 5 mL every 4 hours, Tessalon Perles 100 mg every 8 hours, Xopenex inhaled every 6 hours. LABORATORY DATA: Shows hemoglobin 13, hematocrit 37.9, WBC 4.9, platelet is 88. Sodium 135, potassium 4.7, chloride 100, bicarbonate 27, BUN 18, creatinine 0.6, glucose 134, calcium 8.8. AST 44, ALT 103. Albumin is 3. IMPRESSION AND PLAN: Pancytopenia, status post chemotherapy and radiation therapy, unresectable lung cancer, chronic obstructive pulmonary disease, paroxysmal atrial fibrillation, presently in sinus rhythm. Pulmonary point of view, doing okay. Continue p.r.n. bronchodilator. Keep head at 45 degrees. Gastric prophylaxis. SCD to lower extremity. Oncology/Hematology followup. Follow up CBC in the morning. Thank you and we will follow with you. Lenka García MD [facility] # [id number]
[2017-10-21] MEDS: guaiFENesin-Codeine 100-10mg/5ml Syrup (5 ml) UD PO SCH ×6 (01:45→23:01)
[2017-10-21] MEDS: oxyCODONE 5 mg Immediate Release Tab PO PRN ×2 (01:45→21:22)
[2017-10-21] MEDS: Levalbuterol 0.63 MG/3 ML Inhal Soln UD IH SCH ×4 (01:47→19:50)
[2017-10-21] MEDS: Pantoprazole 40 mg EC Tab PO SCH (06:39)
[2017-10-21 07:08] LABS: BASO # 0.03 K/mm3 (0.0-2.0); BASO % 0.3 % (0.0-3.0); EOS # 0.1 (0.0-0.7); EOS % 0.5 % (1.5-5.0); GRAN # 7.78 (1.4-6.5); HEMOGLOBIN 11.8 g/dL (14.0-18.0); LYMPH # 0.7 (1.2-3.4); LYMPH % 7.4 % (22.0-35.0); MEAN CORPUSCULAR HEMOGLOBIN 29.1 pg (25.0-35.0); MEAN CORPUSCULAR HGB CONC 34.2 g/dl (31.0-37.0); MEAN PLATELET VOLUME 9.9 fl (7.0-11.0); MONO # 0.8 (0.1-0.6); MONO % 8.8 % (1.0-6.0); RBC 4.06 10^6/uL (3.5-6.1); RED CELL DISTRIBUTION WIDTH 14.2 % (11.5-14.5); WHITE BLOOD COUNT 9.4 10^3/ul (4.5-11.0)
[2017-10-21 07:25] LABS: ALB/GLOB RATIO 1.1 (1.1-1.8); ALBUMIN 2.9 g/dL (3.0-4.8); ALT/SGPT 114 U/L (7-56); AST/SGOT 47 U/L (17-59); BLOOD UREA NITROGEN 21 mg/dL (7-21); CALCIUM 8.7 mg/dL (8.4-10.5); GFR AFRICAN-AMERICAN > 60; GFR NON-AFRICAN AMERICAN > 60
[2017-10-21] MEDS: Megestrol Acetate 40 mg/ml Cup PO SCH (09:29)
[2017-10-21] MEDS: POLYETHYLENE GLYCOL 3350 17 GM/Dose PACKET PO SCH ×2 (09:30→17:36)
--- NOTE | 2017-10-21 12:20 | PN ---
Copied To: Jakub Gupta MD Attending MD: Jakub Gupta MD DATE: 10/21/2017 SUBJECTIVE: The patient is seen earlier this morning in room 368. He is awake and alert. He states he is feeling better, although he is weak. PHYSICAL EXAMINATION: VITAL SIGNS: On exam, temperature is 97, blood pressure is 109/50, respiratory rate of 16. HEENT: Examination of HEENT is unremarkable. NECK: Supple. LUNGS: Have decreased breath sounds. HEART: Normal S1, S2. ABDOMEN: Soft, nontender. LABORATORY DATA: Laboratory examination reveals the white count is 9.4, hemoglobin of 11, platelets of 77. The patient's ANC is over 7708. Chemistries are noted. Microbiology is reviewed. ASSESSMENT AND PLAN: A 76-year-old male who has small-cell lung cancer, atrial fibrillation, significant smoking history, has a Port-A-Cath placement, who was admitted with neutropenia; however, no fevers, no chills. Off of antibiotics. Neutropenia has resolved. He is at risk for developing nosocomial infections. We will follow closely with you. Jakub Gupta MD
--- NOTE | 2017-10-21 13:57 | CP.PCM.PN ---
<Leon Hassan - Last Filed: 10/21/17 13:53> Subjective - Date & Time of Evaluation Date of Evaluation: 10/21/17 Time of Evaluation: 13:54 - Subjective Subjective: Leon Hassan D.O PGY-1, Internal Medicine progress note for Dr. Larkin Patient was examined at bedside, no acute overnight events. Patient complains of some coughing last night. Denies fevers, chills, chest pain, shortness of breath, abdominal pain, N/V/D. Objective - Vital Signs/Intake and Output Vital Signs (last 24 hours): Temp Pulse Resp BP Pulse Ox 97.9 F 76 20 109/58 L 100 10/21/17 06:00 10/21/17 09:29 10/21/17 06:00 10/21/17 06:00 10/21/17 06:00 Intake and Output: 10/21/17 10/21/17 06:59 18:59 Intake Total 120 Balance 120 - Medications Medications: Current Medications Apixaban (Eliquis) 5 mg PO BID [facility] PRN Reason: Protocol Last Admin: 10/21/17 09:30 Dose: 5 mg Benzonatate (Tessalon Perles) 100 mg PO Q8 [facility] Last Admin: 10/21/17 06:39 Dose: 100 mg Diphenhydramine HCl (Benadryl) 25 mg PO HS PRN PRN Reason: Insomnia Last Admin: 10/21/17 02:53 Dose: 25 mg Guaifenesin/Codeine Phosphate (Robitussin W/Codeine) 5 ml PO Q4H [facility] Last Admin: 10/21/17 11:53 Dose: 5 ml Levalbuterol HCl (Xopenex) 0.63 mg IH [id number] [facility] Last Admin: 10/21/17 07:45 Dose: 0.63 mg Megestrol Acetate (Megace) 200 mg PO DAILY [facility] Last Admin: 10/21/17 09:29 Dose: 200 mg Oxycodone HCl (Oxycodone Immediate Release Tab) 5 mg PO Q6H PRN PRN Reason: Pain, moderate (4-7) Last Admin: 10/21/17 01:45 Dose: 5 mg Pantoprazole Sodium (Protonix Ec Tab) 40 mg PO 0600 [facility] Last Admin: 10/21/17 06:39 Dose: 40 mg Polyethylene Glycol (Miralax) 17 gm PO BID [facility] Last Admin: 10/21/17 09:30 Dose: 17 gm Sotalol HCl (Betapace) 40 mg PO BID [facility] Last Admin: 10/21/17 09:29 Dose: 40 mg - Labs Labs: 10/21/17 06:45 10/21/17 06:45 - Constitutional Appears: No Acute Distress - Head Exam Head Exam: ATRAUMATIC, NORMAL INSPECTION - Eye Exam Eye Exam: Normal appearance - ENT Exam ENT Exam: Mucous Membranes Moist - Respiratory Exam Respiratory Exam: Decreased Breath Sounds, Clear to Ausculation Bilateral. absent: Rales, Rhonchi, Wheezes, Respiratory Distress - Cardiovascular Exam Cardiovascular Exam: REGULAR RHYTHM, +S1, +S2. absent: Gallop, Rubs, Murmur - GI/Abdominal Exam GI & Abdominal Exam: Soft, Normal Bowel Sounds. absent: Tenderness - Extremities Exam Extremities Exam: absent: Calf Tenderness, Pedal Edema - Neurological Exam Neurological Exam: Alert, Awake, Oriented x3 - Psychiatric Exam Psychiatric exam: Normal Affect, Normal Mood - Skin Skin Exam: Dry, Intact, Normal Color, Warm Assessment and Plan - Assessment and Plan (Free Text) Assessment: Mr. Layton is a 76 year old male with PMH of GERD presented to [facility] ED on 09/24 with SOB and productive cough subsequently found have post-obstructive pneumonia 2/2 new onset small cell lung cancer. Hospital course complicated by transaminitis and paroxysmal afib. Patient is status post first round of chemo therapy as of 10/11. Plan: Small Cell Lung Cancer s/p Chemo/Radiation treatments - CT chest (09/25): extensive mediastinal and hilar lymphadenopathy suspicious for underlying pulmonary malignancy. Lytic lesion at T7 consistent with metastatic disease. Scattered sclerotic lesions. Extensive R lower lobe pneumonia. Ct abd/pelvis 09/25: scattered osteoblastic lesions in multiple vertebral bodies, posterior elements and ribs. Age-indeterminate fracture of L4 superior end-plate, may be acute and/or pathologic. Low density lesion in anterolateral liver, metastvedasis suspected. Ct head 09/27: no evidence of metastatic disease, no acute intracranial findings - Bone scan (09/26): findings consistent with bony metastatic disease - Patient underwent CT guided biopsy of lung mass on 10/01 complicated by pneumothorax now resolved; chest tube was placed due to pneumothorax and has now been removed - Pathology of hilar mass - small cell lung CA - Radiation completed on 10/15; Patient is to follow up with Dr. Farida Dupont 6-8 weeks after completion of radiation - Patient completed first round of chemo therapy on 10/11. Cisplatin based therapy occurring Q28 days. Neutropenia, resolving - Afebrile this AM; No s/s of infection - No longer on neutropenic precautions; ANC today 7780 from 3670 - Currently receiving granix QD as per Dr. Lomeli - Will continue granix until ANC >10,000 as per heme onc - As per ID, no indication for prophylactic abx therapy at this time- continue monitoring patient for s/s infection New-onset atrial fibrillation with rapid ventricular response - Rapid response called on 09/26/17; pt had additional episode overnight that converted back to normal sinus rhythm spontaneously - Heart rate stable; asymptomatic - C/w Sotalol 80mg BID (with parameters) ;continue to monitor blood pressure - C/w Eliquis 5mg BID - Cardio consulted (Dr. Chirinos) Transaminitis - ALT mildly elevated- trending up - Continue to monitor Post-Obstructive Pneumonia -Resolving - CXR on admission: positive for PNA - Patient afebrile; asymptomatic at this time - C/w Xopenex Q6 as per pulm reccs - C/w Robitussin+Codeine 5ml Q4 and Tessalon perles 100mg Q8 - PT/OT evaluation for 6 minutes walk test - ID Following - Pulm Following DVT/GI ppx: SCD /Protonix Patient seen, examined, and case discussed w/ attending physician Dr. Larkin <Tru Larkin - Last Filed: 10/21/17 16:29> Objective - Vital Signs/Intake and Output Vital Signs (last 24 hours): Temp Pulse Resp BP Pulse Ox 97.9 F 76 20 109/58 L 100 10/21/17 06:00 10/21/17 09:29 10/21/17 06:00 10/21/17 06:00 10/21/17 06:00 Intake and Output: 10/21/17 10/21/17 06:59 18:59 Intake Total 120 Balance 120 - Medications Medications: Current Medications Apixaban (Eliquis) 5 mg PO BID [facility] PRN Reason: Protocol Last Admin: 10/21/17 09:30 Dose: 5 mg Benzonatate (Tessalon Perles) 100 mg PO Q8 [facility] Last Admin: 10/21/17 14:39 Dose: 100 mg Diphenhydramine HCl (Benadryl) 25 mg PO HS PRN PRN Reason: Insomnia Last Admin: 10/21/17 02:53 Dose: 25 mg Guaifenesin/Codeine Phosphate (Robitussin W/Codeine) 5 ml PO Q4H [facility] Last Admin: 10/21/17 14:40 Dose: 5 ml Levalbuterol HCl (Xopenex) 0.63 mg IH [id number] [facility] Last Admin: 10/21/17 14:30 Dose: 0.63 mg Megestrol Acetate (Megace) 200 mg PO DAILY [facility] Last Admin: 10/21/17 09:29 Dose: 200 mg Oxycodone HCl (Oxycodone Immediate Release Tab) 5 mg PO Q6H PRN PRN Reason: Pain, moderate (4-7) Last Admin: 10/21/17 01:45 Dose: 5 mg Pantoprazole Sodium (Protonix Ec Tab) 40 mg PO 0600 [facility] Last Admin: 10/21/17 06:39 Dose: 40 mg Polyethylene Glycol (Miralax) 17 gm PO BID [facility] Last Admin: 10/21/17 09:30 Dose: 17 gm Sotalol HCl (Betapace) 40 mg PO BID [facility] Last Admin: 10/21/17 09:29 Dose: 40 mg - Labs Labs: 10/21/17 06:45 10/21/17 06:45 Attending/Attestation - Attestation I have personally seen and examined this patient.: Yes I have fully participated in the care of the patient.: Yes I have reviewed all pertinent clinical information, including history, physical exam and plan: Yes Notes (Text): 10/21/17 16:20 76 year old male with past medical history of prior tobacco use who presented with complaint of cough and shortness of breath. CT chest study showed right lower lobe pneumonia, diffuse moderate mediastianal MYA and extrapulmonary lesions suggestive of metastatic process. CT abd/pelvis showed liver lesion and possible lumbar spine metastasis. LFTs were initially elevated but improved. Patient had lung biopsy which showed small cell carcinoma for which he was started on chemotherapy and radiation. He is also on eliquis and sotalol for paroxysmal afib. Heart rate is controlled. He was transferred to back to medical floor earlier last week due to worsening neutropenia. Neutropenia has now resolved after receiving granix. Hematology/oncology is following. D/c planning home tomorrow. Pending PT follow with 6 min walk test to check if need for homer O2. Tru Larkin MD Hospitalist.
--- NOTE | 2017-10-21 18:14 | CP.PCM.PN ---
Subjective - Date & Time of Evaluation Date of Evaluation: 10/20/17 Time of Evaluation: 19:00 - Subjective Subjective: No acute events. Receives daily granix 12 ROS negative for patient; Objective - Vital Signs/Intake and Output Vital Signs (last 24 hours): Temp Pulse Resp BP Pulse Ox 97.8 F 77 20 98/59 L 100 10/21/17 16:37 10/21/17 16:37 10/21/17 16:37 10/21/17 16:37 10/21/17 16:37 Intake and Output: 10/21/17 10/21/17 06:59 18:59 Intake Total 120 Balance 120 - Medications Medications: Current Medications Apixaban (Eliquis) 5 mg PO BID [facility] PRN Reason: Protocol Last Admin: 10/21/17 17:36 Dose: 5 mg Benzonatate (Tessalon Perles) 100 mg PO Q8 [facility] Last Admin: 10/21/17 14:39 Dose: 100 mg Diphenhydramine HCl (Benadryl) 25 mg PO HS PRN PRN Reason: Insomnia Last Admin: 10/21/17 02:53 Dose: 25 mg Guaifenesin/Codeine Phosphate (Robitussin W/Codeine) 5 ml PO Q4H [facility] Last Admin: 10/21/17 14:40 Dose: 5 ml Levalbuterol HCl (Xopenex) 0.63 mg IH [id number] [facility] Last Admin: 10/21/17 14:30 Dose: 0.63 mg Megestrol Acetate (Megace) 200 mg PO DAILY [facility] Last Admin: 10/21/17 09:29 Dose: 200 mg Oxycodone HCl (Oxycodone Immediate Release Tab) 5 mg PO Q6H PRN PRN Reason: Pain, moderate (4-7) Last Admin: 10/21/17 01:45 Dose: 5 mg Pantoprazole Sodium (Protonix Ec Tab) 40 mg PO 0600 [facility] Last Admin: 10/21/17 06:39 Dose: 40 mg Polyethylene Glycol (Miralax) 17 gm PO BID [facility] Last Admin: 10/21/17 17:36 Dose: 17 gm Sotalol HCl (Betapace) 40 mg PO BID [facility] Last Admin: 10/21/17 17:36 Dose: 40 mg - Labs Labs: 10/21/17 06:45 10/21/17 06:45 - Constitutional Appears: Non-toxic - Eye Exam Eye Exam: EOMI, Normal appearance, PERRL - Respiratory Exam Respiratory Exam: Clear to Ausculation Bilateral, NORMAL BREATHING PATTERN - Cardiovascular Exam Cardiovascular Exam: REGULAR RHYTHM, +S1, +S2. absent: Murmur - Extremities Exam Extremities Exam: Full ROM, Normal Capillary Refill, Normal Inspection. absent : Joint Swelling, Pedal Edema Assessment and Plan - Assessment and Plan (Free Text) Assessment: 76 y/o admitted with RLL and found to have extensive stage small cell s/p palliative XRT to lytic bone lesions and s/p C1 of cis/etop whose course has been complicated by neutropenia. Neutropenia appears to be resolving. Continue daily granix for now.
--- NOTE | 2017-10-21 18:20 | CP.PCM.PN ---
Subjective - Date & Time of Evaluation Date of Evaluation: 10/21/17 Time of Evaluation: 20:00 - Subjective Subjective: No acute complaints 12 ROS negative Objective - Vital Signs/Intake and Output Vital Signs (last 24 hours): Temp Pulse Resp BP Pulse Ox 97.8 F 77 20 98/59 L 100 10/21/17 16:37 10/21/17 16:37 10/21/17 16:37 10/21/17 16:37 10/21/17 16:37 Intake and Output: 10/21/17 10/21/17 06:59 18:59 Intake Total 120 Balance 120 - Medications Medications: Current Medications Apixaban (Eliquis) 5 mg PO BID [facility] PRN Reason: Protocol Last Admin: 10/21/17 17:36 Dose: 5 mg Benzonatate (Tessalon Perles) 100 mg PO Q8 [facility] Last Admin: 10/21/17 14:39 Dose: 100 mg Diphenhydramine HCl (Benadryl) 25 mg PO HS PRN PRN Reason: Insomnia Last Admin: 10/21/17 02:53 Dose: 25 mg Guaifenesin/Codeine Phosphate (Robitussin W/Codeine) 5 ml PO Q4H [facility] Last Admin: 10/21/17 14:40 Dose: 5 ml Levalbuterol HCl (Xopenex) 0.63 mg IH [id number] [facility] Last Admin: 10/21/17 14:30 Dose: 0.63 mg Megestrol Acetate (Megace) 200 mg PO DAILY [facility] Last Admin: 10/21/17 09:29 Dose: 200 mg Oxycodone HCl (Oxycodone Immediate Release Tab) 5 mg PO Q6H PRN PRN Reason: Pain, moderate (4-7) Last Admin: 10/21/17 01:45 Dose: 5 mg Pantoprazole Sodium (Protonix Ec Tab) 40 mg PO 0600 [facility] Last Admin: 10/21/17 06:39 Dose: 40 mg Polyethylene Glycol (Miralax) 17 gm PO BID [facility] Last Admin: 10/21/17 17:36 Dose: 17 gm Sotalol HCl (Betapace) 40 mg PO BID [facility] Last Admin: 10/21/17 17:36 Dose: 40 mg - Labs Labs: 10/21/17 06:45 10/21/17 06:45 - Constitutional Appears: Well - Respiratory Exam Respiratory Exam: Clear to Ausculation Bilateral, NORMAL BREATHING PATTERN - Cardiovascular Exam Cardiovascular Exam: REGULAR RHYTHM, +S1, +S2. absent: Murmur - GI/Abdominal Exam GI & Abdominal Exam: Soft, Normal Bowel Sounds. absent: Tenderness - Extremities Exam Extremities Exam: Full ROM, Normal Capillary Refill, Normal Inspection. absent : Joint Swelling, Pedal Edema Assessment and Plan - Assessment and Plan (Free Text) Assessment: 76 y/o admitted with RLL and found to have extensive stage small cell s/p palliative XRT to lytic bone lesions and s/p C1 of cis/etop whose course has been complicated by neutropenia. Neutropenia appears to be resolving. Given ANC> 1500 for todays in a row will plan on holding granix for now.
[2017-10-22] MEDS: Levalbuterol 0.63 MG/3 ML Inhal Soln UD IH SCH ×4 (01:14→20:25)
[2017-10-22] MEDS: guaiFENesin-Codeine 100-10mg/5ml Syrup (5 ml) UD PO SCH ×6 (03:37→22:10)
--- NOTE | 2017-10-22 06:03 | CP.PCM.PN ---
<Kai Matos - Last Filed: 10/22/17 15:05> Subjective - Date & Time of Evaluation Date of Evaluation: 10/22/17 Time of Evaluation: 06:03 - Subjective Subjective: Kai Matos DO PGY1 - Internal Medicine [facility] - Hospital Progress Note Patient was seen and examined at bedside this morning on med/surg floor. Neutropenic precuations lifted over the weekend. No acute events reported overnight; No complaints voiced by patient this morning 12 system ROS is othrwise negative except for baseline cough at this time. Objective - Vital Signs/Intake and Output Vital Signs (last 24 hours): Temp Pulse Resp BP Pulse Ox 97.8 F 77 20 98/59 L 100 10/21/17 16:37 10/21/17 16:37 10/21/17 16:37 10/21/17 16:37 10/21/17 16:37 Intake and Output: 10/21/17 10/22/17 18:59 06:59 Intake Total 940 Balance 940 - Medications Medications: Current Medications Apixaban (Eliquis) 5 mg PO BID [facility] PRN Reason: Protocol Last Admin: 10/21/17 17:36 Dose: 5 mg Benzonatate (Tessalon Perles) 100 mg PO Q8 [facility] Last Admin: 10/21/17 21:22 Dose: 100 mg Diphenhydramine HCl (Benadryl) 25 mg PO HS PRN PRN Reason: Insomnia Last Admin: 10/21/17 21:22 Dose: 25 mg Guaifenesin/Codeine Phosphate (Robitussin W/Codeine) 5 ml PO Q4H [facility] Last Admin: 10/22/17 03:37 Dose: 5 ml Levalbuterol HCl (Xopenex) 0.63 mg IH [id number] [facility] Last Admin: 10/22/17 01:14 Dose: 0.63 mg Megestrol Acetate (Megace) 200 mg PO DAILY [facility] Last Admin: 10/21/17 09:29 Dose: 200 mg Oxycodone HCl (Oxycodone Immediate Release Tab) 5 mg PO Q6H PRN PRN Reason: Pain, moderate (4-7) Last Admin: 10/21/17 21:22 Dose: 5 mg Pantoprazole Sodium (Protonix Ec Tab) 40 mg PO 0600 [facility] Last Admin: 10/21/17 06:39 Dose: 40 mg Polyethylene Glycol (Miralax) 17 gm PO BID [facility] Last Admin: 10/21/17 17:36 Dose: 17 gm Sotalol HCl (Betapace) 40 mg PO BID [facility] Last Admin: 10/21/17 17:36 Dose: 40 mg - Labs Labs: 10/21/17 06:45 10/21/17 06:45 Physical Exam - Constitutional Appears: Non-toxic, No Acute Distress - Head Exam Head Exam: ATRAUMATIC, NORMAL INSPECTION, NORMOCEPHALIC - Eye Exam Eye Exam: EOMI, Normal appearance, PERRL. absent: Scleral icterus - ENT Exam ENT Exam: Mucous Membranes Moist - Respiratory Exam Additional comments: RLL crackles L lung chacon CTA - Cardiovascular Exam Cardiovascular Exam: REGULAR RHYTHM, RRR, +S1, +S2. absent: Systolic Murmur - GI/Abdominal Exam GI & Abdominal Exam: Normal Bowel Sounds, Soft. absent: Tenderness - Extremities Exam Extremities exam: Positive for: normal inspection, pedal pulses present (2+ TP/ DP BL). Negative for: pedal edema, tenderness - Back Exam Back exam: absent: CVA tenderness (L), CVA tenderness (R) - Neurological Exam Neurological exam: Alert, CN II-XII Intact, Oriented x3 - Psychiatric Exam Psychiatric exam: Normal Affect, Normal Mood - Skin Skin Exam: Dry, Intact, Normal Color, Warm Assessment and Plan - Assessment and Plan (Free Text) Assessment: 76M PMH of GERD [place] [facility] [place] on w/ SOB and productive cough subsequently found have postobstructive pneumonia 2/2 new onset small cell lung cancer. Hospital course complicated by transaminitis and paroxysmal afib. Patient is status post first round of chemo therapy as of 10/11. Hospital course recently complicated by Neutropenia which has now resolved. Small Cell Lung Cancer s/p Chemo/Radiation treatments CT chest 09/25: extensive mediastinal and hilar lymphadenopathy suspicious for underlying pulmonary malignancy. Lytic lesion at T7 consistent with metastatic disease. Scattered sclerotic lesions. Extensive R lower lobe pneumonia. Ct abd/ pelvis 09/25: scattered osteoblastic lesions in multiple vertebral bodies, posterior elements and ribs. Age-indeterminate fracture of L4 superior end-plate , may be acute and/or pathologic. Low density lesion in anterolateral liver, metastvedasis suspected. Ct head 09/27: no evidence of metastatic disease, no acute intracranial findings Bone scan 09/26: findings consistent with bony metastatic disease Patient underwent CT guided biopsy of lung mass on 10/01 complicated by pneumothorax now resolved; chest tube was placed due to pneumothorax and has now been removed Pathology of hilar mass - small cell lung CA Radiation completed on 10/15; Patient is to follow up with Dr. Farida Dupont 6-8 weeks after completion of radiation Patient completed first round of chemo therapy on 10/11. Cisplatin based therapy occurring Q28 days. Pt has some ZAVALA due to CA, PNA, and Biopsy; PT reccs 3L Home O2 on 6min walk test Neutropenia Afebrile this AM; No s/s of infection Neutropenic Precautions DC'd over as white count is resolving. WBC is 17.3 today up from 9.4 yesterday; ANC is 12.975 Granix held today as white count has elevated; last dose on 10/21 ID Reccs no indication prophylactic abx therapy at this time, Continue monitoring patient for s/s infection; no need for cultures at this time New-onset atrial fibrillation with rapid ventricular response Rapid response called on 09/26/17; pt had additional episode overnight that converted back to normal sinus rhythm spontaneously Patient was borderline hypotensive on Sotalol 80mg BID; Patient started on Sotalol 40 BID; His pressures are decreased 100s/50s; heart rate stable; asymptomatic C/w anticoagulation w/ eliquis 5mg BID Cardio consulted (Dr. Chirinos), recs appreciated Transaminitis - Resolving LFTs are stable today; minor elevation of ALT Post-Obstructive Pneumonia -Resolving CXR on admission + for PNA Patient afebrile; asymptomatic at this time C/w Xopenex as per pulm reccs C/w Robitussin+Codeine PRN and Tessalon perles PRN ID Following Pulm Following Electrolyte abnormalities HyperK/ Hypophos / Hyper mag Continue following levels; treat/replete as necessary Treat hypophos w/ sodium phos as to not upset other electrolyte balances Nephrology (Dr Barrera) has signed off DVT/GI ppx: SCD /Protonix Disposition plan: Patient has completed first round of chemotherapy, He was moved to med/surg due to neutropenia. White counts have stabilized today, discharge home is pending availability of Home O2 Patient was seen, examined, and discussed w/ attending physician Dr. Sarah Matos DO PGY1 - Internal Medicine Day Care [facility] Mother - Pager [phone] <Sarah Matos R - Last Filed: 10/23/17 07:59> Objective - Vital Signs/Intake and Output Vital Signs (last 24 hours): Temp Pulse Resp BP Pulse Ox 97.5 F L 63 20 129/64 98 10/22/17 17:00 10/22/17 17:11 10/22/17 17:00 10/22/17 17:11 10/22/17 17:00 - Medications Medications: Current Medications Apixaban (Eliquis) 5 mg PO BID [facility] PRN Reason: Protocol Last Admin: 10/22/17 17:10 Dose: 5 mg Benzonatate (Tessalon Perles) 100 mg PO Q8 [facility] Last Admin: 10/23/17 05:31 Dose: 100 mg Diphenhydramine HCl (Benadryl) 25 mg PO HS PRN PRN Reason: Insomnia Last Admin: 10/22/17 22:09 Dose: 25 mg Guaifenesin/Codeine Phosphate (Robitussin W/Codeine) 5 ml PO Q4H [facility] Last Admin: 10/23/17 05:31 Dose: 5 ml Levalbuterol HCl (Xopenex) 0.63 mg IH [id number] [facility] Last Admin: 10/23/17 01:10 Dose: 0.63 mg Megestrol Acetate (Megace) 200 mg PO DAILY [facility] Last Admin: 10/22/17 09:40 Dose: 200 mg Oxycodone HCl (Oxycodone Immediate Release Tab) 5 mg PO Q6H PRN PRN Reason: Pain, moderate (4-7) Last Admin: 10/23/17 04:23 Dose: 5 mg Pantoprazole Sodium (Protonix Ec Tab) 40 mg PO 0600 [facility] Last Admin: 10/23/17 05:30 Dose: 40 mg Polyethylene Glycol (Miralax) 17 gm PO TID [facility] Last Admin: 10/22/17 17:10 Dose: 17 gm Sotalol HCl (Betapace) 40 mg PO BID [facility] Last Admin: 10/22/17 17:11 Dose: 40 mg - Labs Labs: 10/23/17 06:45 10/23/17 06:45 Attending/Attestation - Attestation I have personally seen and examined this patient.: Yes I have fully participated in the care of the patient.: Yes I have reviewed all pertinent clinical information, including history, physical exam and plan: Yes Notes (Text): Patient seen and examined by me at 10:40AM with resident 10/22/17. Case including HPI, physical exam, and assessment and plan discussed with resident. Agree with above with following additions/corrections. Patient is a 76-year-old male with past medical history significant for gastric ulcer who presented to the emergency room with 3 weeks of productive cough with white/yellow sputum and shortness of breath. Patient states he is feeling ok. States he is waiting to go home. Patient states he is coughing, but it has improved. He states sometimes, he gets chest pain when coughing. Also with a little shortness of breath. Oxygen via nasal cannula is helping. No fevers or chills. No headaches or dizziness. No dysuria. No nausea, vomiting, or abdominal pain. Physical exam: Gen: Awake and alert lying in bed in no acute distress HEENT: Normocephalic, atraumatic. Extraocular muscles intact, pupils equal reactive. No scleral icterus. Oropharynx is pink and moist. No pharyngeal erythema or exudate appreciated. Neck is supple. Cardiovascular: Normal rhythm. Normal S1, S2. No murmurs, rubs, or gallops appreciated Pulmonary: Normal respiratory effort. Coarse breath sounds. No rales or wheezing appreciated. Gastrointestinal: Soft, nontender, nondistended, positive bowel sounds all 4 quadrants, no guarding. Musculoskeletal: Moves all extremities. no calf tenderness. no edema appreciated Central nervous system: AAO x 3. CN 2-12 grossly intact. Dermatologic: Skin warm and dry. Assessment and plan: Patient is a 76-year-old male with past medical history significant for gastric ulcer who presented to the emergency room with 3 weeks of productive cough with white/yellow sputum and shortness of breath. 1. Small lung cell cancer. S/P CT guided biopsy on 10/01 complicated by pneumothorax now resolved. Started on chemo. S/P radiation. Will need outpatient follow up 6-8 weeks from last radiation treatment on 10/15/17. Hem/ onc following, recommendations appreciated 2. Neutropenia. Secondary to chemo. Resolved. S/P granix. Hem/onc following, recommendations appreciated 3. Hypoxemia. Shortness of breath with ambulation. Will need home oxygen. Pending home oxygen delivery.Continue nebulizer treatments. 4. New onset a-fib with RVR. Now in normal sinus rhythm. Cardiology following, recommendations appreciated. Continue sotalol and eliquis 5. Transaminitis. Resolving. May be secondary to chemo. Continue to monitor. 6. Post obstructive pneumonia. S/P antibiotic treatment. ID recommendations appreciated. Pulmonary recommendations appreciated. Continue with Robitussin with codeine and Tessalon Perles as needed 7. GI/DVT prophylaxis. Protonix and Eliquis Case was discussed in detail with the patient regarding current diagnosis and treatment plan.
[2017-10-22] MEDS: Pantoprazole 40 mg EC Tab PO SCH (07:04)
[2017-10-22 07:17] LABS: HEMOGLOBIN 11.8 g/dL (14.0-18.0); MEAN CELL VOLUME 85.1 fl (80.0-105.0); MEAN CORPUSCULAR HEMOGLOBIN 29.9 pg (25.0-35.0); MEAN CORPUSCULAR HGB CONC 35.1 g/dl (31.0-37.0); MEAN PLATELET VOLUME 9.6 fl (7.0-11.0); PLATELET COUNT 78 10^3/uL (120.0-450.0); RBC 3.95 10^6/uL (3.5-6.1); RED CELL DISTRIBUTION WIDTH 14.5 % (11.5-14.5); WHITE BLOOD COUNT 17.3 10^3/ul (4.5-11.0)
[2017-10-22 07:28] LABS: ALBUMIN 2.9 g/dL (3.0-4.8); ALT/SGPT 97 U/L (7-56); AST/SGOT 33 U/L (17-59); BLOOD UREA NITROGEN 21 mg/dL (7-21); CALCIUM 8.8 mg/dL (8.4-10.5); GFR AFRICAN-AMERICAN > 60; GFR NON-AFRICAN AMERICAN > 60
[2017-10-22 08:02] LABS: BAND 11 % (0-2); LYMPHOCYTE 3 % (22.0-35.0); METAMYELOCYTE 4 %; MONOCYTE 7 % (1.0-6.0); NEUTROPHIL 75 % (50.0-70.0)
[2017-10-22 08:03] LABS: PLATELET ESTIMATE LOW (NORMAL)
[2017-10-22] MEDS: Megestrol Acetate 40 mg/ml Cup PO SCH (09:40)
[2017-10-22] MEDS: POLYETHYLENE GLYCOL 3350 17 GM/Dose PACKET PO SCH ×2 (09:41→17:10)
[2017-10-22] MEDS ORDERED: guaiFENesin-Codeine 100-10mg/5ml Syrup (5 ml) UD PO SCH (13:09)
--- NOTE | 2017-10-22 15:44 | CP.PCM.PN ---
Subjective - Date & Time of Evaluation Date of Evaluation: 10/22/17 Time of Evaluation: 15:40 - Subjective Subjective: Sobeida Dukes, PGY2, Heme-Onc Progress Note for Dr Lomeli/Dr Bernard: This is a 76 year old male with PMH gastric ulcer, gastritis, admitted for pneumonia, found to have small cell lung carcinoma with extensive mediastinal and hilar adenopathy and lytic lesions at T7, other vertebral bodies and liver mets, s/p 10 radiation treatments and 3 chemotherapy sessions. Patient now found to be neutropenic, put on neutropenic precautions. Patient transferred back to inpatient side from TCU, for granix injections. Patient's ANC count>1500 , stopped granix injections. Awaiting home oxygen, prior to discharge. Patient seen and examined at bedside. No acute events overnight. Patient reports mild weakness, denies pain. Reports mild cough at midnight, denies hemoptysis. Had BM on Sunday, currently on miralax bid, requesting more bowel regimen. Denies fevers, chills, nausea, vomiting, hematochezia, abdominal pain , hematochezia, mucosal bleeding. Reports that he has good appetite. Objective - Vital Signs/Intake and Output Vital Signs (last 24 hours): Temp Pulse Resp BP Pulse Ox 97.2 F L 67 20 108/62 100 10/22/17 08:13 10/22/17 09:34 10/22/17 08:13 10/22/17 09:34 10/22/17 08:13 Intake and Output: 10/22/17 10/22/17 06:59 18:59 Intake Total 940 Output Total 0 Balance 940 - Medications Medications: Current Medications Apixaban (Eliquis) 5 mg PO BID [facility] PRN Reason: Protocol Last Admin: 10/22/17 09:34 Dose: 5 mg Benzonatate (Tessalon Perles) 100 mg PO Q8 [facility] Last Admin: 10/22/17 13:20 Dose: 100 mg Diphenhydramine HCl (Benadryl) 25 mg PO HS PRN PRN Reason: Insomnia Last Admin: 10/21/17 21:22 Dose: 25 mg Guaifenesin/Codeine Phosphate (Robitussin W/Codeine) 5 ml PO Q4H [facility] Last Admin: 10/22/17 13:20 Dose: 5 ml Levalbuterol HCl (Xopenex) 0.63 mg IH [id number] [facility] Last Admin: 10/22/17 13:28 Dose: 0.63 mg Megestrol Acetate (Megace) 200 mg PO DAILY [facility] Last Admin: 10/22/17 09:40 Dose: 200 mg Oxycodone HCl (Oxycodone Immediate Release Tab) 5 mg PO Q6H PRN PRN Reason: Pain, moderate (4-7) Last Admin: 10/21/17 21:22 Dose: 5 mg Pantoprazole Sodium (Protonix Ec Tab) 40 mg PO 0600 [facility] Last Admin: 10/22/17 07:04 Dose: 40 mg Polyethylene Glycol (Miralax) 17 gm PO BID [facility] Last Admin: 10/22/17 09:41 Dose: 17 gm Sotalol HCl (Betapace) 40 mg PO BID [facility] Last Admin: 10/22/17 09:34 Dose: 40 mg - Labs Labs: 10/22/17 07:10 10/22/17 07:10 - Additional Findings Additional findings: - Constitutional Appears: Older Than Stated Age, Chronically Ill - Head Exam Head Exam: ATRAUMATIC, NORMOCEPHALIC - Eye Exam Eye Exam: EOMI, PERRL. absent: Conjunctival injection, Nystagmus, Scleral icterus Pupil Exam: NORMAL ACCOMODATION, PERRL. absent: Miosis, Mydriatic, Unequal - ENT Exam ENT Exam: Mucous Membranes Moist - Neck Exam Neck Exam: Full ROM - Respiratory Exam Respiratory Exam: Decreased Breath Sounds - Cardiovascular Exam Cardiovascular Exam: RRR, +S1, +S2. absent: Murmur right sided chest port in place - GI/Abdominal Exam GI & Abdominal Exam: Soft, Normal Bowel Sounds. absent: Guarding, Rigid, Tenderness, Mass, Organomegaly, Rebound - Extremities Exam Extremities Exam: Normal Inspection. absent: Calf Tenderness, Pedal Edema - Back Exam Back Exam: NORMAL INSPECTION - Neurological Exam Neurological Exam: Alert, Awake, Oriented x3 - Psychiatric Exam Psychiatric exam: Normal Affect, Normal Mood - Skin Skin Exam: Dry, Normal Color, Warm Assessment and Plan - Assessment and Plan (Free Text) Assessment: 76 year old male with PMH gastric ulcer, gastritis, admitted for RLL pneumonia, found to have small cell lung cancer with extensive mediastinal and hilar adenopathy and lytic lesions at T7, other vertebral bodies and liver mets, s/p radiation treatments with Dr Iqbal and 3 sessions of chemotherapy. Patient transferred to TCU for rehab. However, patient was found to be leukopenic, ANC < 500, put on neutropenic precautions, transferred to inpatient side for daily granix injections. ANC>1500 now, stopped granix. Awaiting home oxygen prior to discharge home: Neutropenia, resolved Small cell lung cancer with metastasis to bone, liver, s/p radiation and chemo session New onset afib Constipation RLL pneumonia Transaminitis 2/2 likely medication (rocephin) induced Chemotherapy - carboplatin and etoposide Deconditioning s/p chemo - increased miralax to three times a day. - c/w Megace - pathology report of hilar mass 10/02 showed small cell lung carcinoma - On eliquis 5 mg BID and sotalol for afib. as per cardio and primary team - completed 3/3 chemotherapy sessions with carboplatin and etoposide, last session 10/11 - Will need home oxygen - Abd US showed increased echogenicity of liver parenchyma, 2 separate hypoechoic lesions. 2x1.3 cm in diameter. fatty infiltration - transaminitis improving - s/p Neupogen 480 mg sq daily 7 days. - Patient can follow up outpatient with Dr Lomeli upon discharge. - monitor Case discussed with Dr Lomeli.
[2017-10-22] MEDS ORDERED: Levalbuterol 0.63 MG/3 ML Inhal Soln UD IH ONE (16:30)
--- NOTE | 2017-10-22 19:39 | CP.PCM.PN ---
Subjective - Date & Time of Evaluation Date of Evaluation: 10/22/17 Time of Evaluation: 11:05 - Subjective Subjective: Comfortable in bed, no fevers. Objective - Vital Signs/Intake and Output Vital Signs (last 24 hours): Temp Pulse Resp BP Pulse Ox 97.2 F L 67 20 108/62 100 10/22/17 08:13 10/22/17 09:34 10/22/17 08:13 10/22/17 09:34 10/22/17 08:13 Intake and Output: 10/22/17 10/22/17 06:59 18:59 Intake Total 940 Output Total 0 Balance 940 - Medications Medications: Current Medications Apixaban (Eliquis) 5 mg PO BID [facility] PRN Reason: Protocol Last Admin: 10/22/17 09:34 Dose: 5 mg Benzonatate (Tessalon Perles) 100 mg PO Q8 [facility] Last Admin: 10/22/17 07:04 Dose: 100 mg Diphenhydramine HCl (Benadryl) 25 mg PO HS PRN PRN Reason: Insomnia Last Admin: 10/21/17 21:22 Dose: 25 mg Guaifenesin/Codeine Phosphate (Robitussin W/Codeine) 5 ml PO Q4H [facility] Last Admin: 10/22/17 09:45 Dose: 5 ml Levalbuterol HCl (Xopenex) 0.63 mg IH [id number] [facility] Last Admin: 10/22/17 07:35 Dose: 0.63 mg Megestrol Acetate (Megace) 200 mg PO DAILY [facility] Last Admin: 10/22/17 09:40 Dose: 200 mg Oxycodone HCl (Oxycodone Immediate Release Tab) 5 mg PO Q6H [facility]N PRN Reason: Pain, moderate (4-7) Last Admin: 10/21/17 21:22 Dose: 5 mg Pantoprazole Sodium (Protonix Ec Tab) 40 mg PO 0600 [facility] Last Admin: 10/22/17 07:04 Dose: 40 mg Polyethylene Glycol (Miralax) 17 gm PO BID [facility] Last Admin: 10/22/17 09:41 Dose: 17 gm Sotalol HCl (Betapace) 40 mg PO BID [facility] Last Admin: 10/22/17 09:34 Dose: 40 mg - Labs Labs: 10/22/17 07:10 10/22/17 07:10 - Constitutional Appears: Chronically Ill - Head Exam Head Exam: NORMAL INSPECTION - ENT Exam ENT Exam: Mucous Membranes Moist - Neck Exam Neck Exam: absent: Meningismus - Respiratory Exam Respiratory Exam: Decreased Breath Sounds - Cardiovascular Exam Cardiovascular Exam: +S1, +S2 - GI/Abdominal Exam GI & Abdominal Exam: Soft. absent: Tenderness Assessment and Plan - Assessment and Plan (Free Text) Plan: Assessment neutropenia without fever small cell lung cancer atrial fibrillation significant smoking history S/P port-a-cath placement Plan continue to monitor off antibiotics since the patient does not have fever - patient is not neutropenic anymore overall prognosis is poor
[2017-10-22] MEDS ORDERED: Albuterol-Ipratrop 3 mg / 0.5 (3 ml) UD IH STA (21:15)
--- NOTE | 2017-10-22 23:22 | CP.PCM.DIS ---
Provider - Provider Date of Admission: 10/17/17 17:35 Attending physician: Tru Larkin MD Primary care physician: NO FAMILY PROVIDER Time Spent in preparation of Discharge (in minutes): 40 Hospital Course - Lab Results Lab Results: Most Recent Lab Values WBC 17.3 10^3/ul (4.5-11.0) H D 10/22/17 07:10 RBC 3.95 10^6/uL (3.5-6.1) 10/22/17 07:10 Hgb 11.8 g/dL (14.0-18.0) L 10/22/17 07:10 Hct 33.6 % (42.0-52.0) L 10/22/17 07:10 MCV 85.1 fl (80.0-105.0) 10/22/17 07:10 MCH 29.9 pg (25.0-35.0) 10/22/17 07:10 MCHC 35.1 g/dl (31.0-37.0) 10/22/17 07:10 RDW 14.5 % (11.5-14.5) 10/22/17 07:10 Plt Count 78 10^3/uL (120.0-450.0) L 10/22/17 07:10 MPV 9.6 fl (7.0-11.0) 10/22/17 07:10 Gran % 83.0 % (50.0-68.0) H 10/21/17 06:45 Lymph % (Auto) 7.4 % (22.0-35.0) L 10/21/17 06:45 Gordon % (Auto) 8.8 % (1.0-6.0) H 10/21/17 06:45 Eos % (Auto) 0.5 % (1.5-5.0) L 10/21/17 06:45 Baso % (Auto) 0.3 % (0.0-3.0) 10/21/17 06:45 Gran # 7.78 (1.4-6.5) H 10/21/17 06:45 Lymph # (Auto) 0.7 (1.2-3.4) L 10/21/17 06:45 Gordon # (Auto) 0.8 (0.1-0.6) H 10/21/17 06:45 Eos # (Auto) 0.1 (0.0-0.7) 10/21/17 06:45 Baso # (Auto) 0.03 K/mm3 (0.0-2.0) 10/21/17 06:45 Neutrophils % (Manual) 75 % (50.0-70.0) H 10/22/17 07:10 Band Neutrophils % 11 % (0-2) H* 10/22/17 07:10 Lymphocytes % (Manual) 3 % (22.0-35.0) L 10/22/17 07:10 Monocytes % (Manual) 7 % (1.0-6.0) H 10/22/17 07:10 Metamyelocytes % 4 % 10/22/17 07:10 Platelet Evaluation Low (NORMAL) 10/22/17 07:10 Sodium 135 mmol/L (132-148) 10/22/17 07:10 Potassium 4.6 mmol/L (3.6-5.0) 10/22/17 07:10 Chloride 100 mmol/L (98-107) 10/22/17 07:10 Carbon Dioxide 28 mmol/L (21-33) 10/22/17 07:10 Anion Gap 13 (10-20) 10/22/17 07:10 BUN 21 mg/dL (7-21) 10/22/17 07:10 Creatinine 0.7 mg/dl (0.8-1.5) L 10/22/17 07:10 Est GFR ( Amer) > 60 10/22/17 07:10 Est GFR (Non-Af Amer) > 60 10/22/17 07:10 Random Glucose 126 mg/dL (70-110) H 10/22/17 07:10 Calcium 8.8 mg/dL (8.4-10.5) 10/22/17 07:10 Total Bilirubin 0.3 mg/dL (0.2-1.3) 10/22/17 07:10 AST 33 U/L (17-59) 10/22/17 07:10 ALT 97 U/L (7-56) H 10/22/17 07:10 Alkaline Phosphatase 123 U/L (38-126) 10/22/17 07:10 Total Protein 5.7 g/dL (5.8-8.3) L 10/22/17 07:10 Albumin 2.9 g/dL (3.0-4.8) L 10/22/17 07:10 Globulin 2.8 gm/dL 10/22/17 07:10 Albumin/Globulin Ratio 1.0 (1.1-1.8) L 10/22/17 07:10 - Hospital Course Hospital Course: Kai Matos PGY1 - Internal Medicine Bookstore Clerk - TCU Discharge Summary HPI: Pt is a 76 yo male with a past medical history of only GI ulcer in 2014 who presents to [facility] ED on 09/24 for 3 weeks of productive cough with white/yellow sputum and SOB. He denies blood in his sputum. He states that he traveled to [place] for his son's wedding and [place] the [place] a [place] ago. He reports a recent 19lb wt loss, due to "food does not taste the same". Pt quit smoking about 5 years ago. Pt reports he has been using Tim's Vapor rub, but it has not helped very much. He states that he is SOB which is worse when he lays down and better when he sits up. Pertinent Imaging: CT Chest 09/25/17 - performed shortly after admission, revealed extensive mediastinal and hilar adenopathy suspicious for underlying pulmonary malignancy. Lytic lesion at T7 consistent with metastatic disease. Scattered sclerotic lesions. Extensive right lower pneumonia. CT AP 09/25/17 - revealed scattered osteoblastic lesions in multiple vertebral bodies, posterior elements and ribs. Age-indeterminate fracture of the L4 superior endplate which may be acute and/ or pathologic. L4 compression fracture. CT Head 09/27/17 - No evidence of metastatic disease; no acute intracranial pathology MRI thoracic spine 09/27/17 - revealed same T7 metastatic processes however showed no evidence of epidural invasion and cord compression. Bone scan findings 10/27/17 - showed increased activity at the L4 level corresponding ot compression fracture seen on CT. Also revealed actiicty at T7 level corresponding to the lytic lesions seen on CT; multiple rib lesions are seen consistent w/ metastatic disease. Increased activity at the junction of the manubrium and sternum; this appears as a chronic bony fusion on CT. One Liner: 76M w/ PMH Of GI ulcer presented to [facility] ED on 09/24 for pneumonia like symptoms. Found to have post obstructive pneumonia 2/2 small cell lung cancer which was managed with palliative radiation and chemotherapy. Hospital course complicated with transaminitis most likely drug induced (now resolved), Paroxysmal Afib (rate controlled and on NOAC now), and Neutropenia (now resolved treated with granix). Lung CA: Patient was found to have mediastinal and hilar adenopathy on CT chest upon admission, On 10/01, CT guided biopsy of mediastinal mass was performed. Patient had a subsequent pneumothorax from procedure and chest tube was placed and removed after 3 days; pneumothorax resolution was visualized on CXR morning after biopsy as well as after removal of chest tube. Patient was started on palliative radiation (10/02) while awaiting pathology report. Subsequently, path report yielded small cell lung CA. Port placed 10/08, and Patient began first round of carboplatin/ etoposide based chemo therapy from 10/09-10/11. On 10/12 Patient was started on Granix in anticipation of neutropenia; ON 10/17 patient was neutropenic w/ ANC of 450. He was placed on neutropenic precautions, and Infectious disease was made aware. Patient received 9 total days of Granix. Neutropenia resolved on 10/21; Neutropenic precautions were DC'd on 10/21. While on neutropenic precautions patient remained afebrile and showed no s/s of infection. Post obsructive pneumonia No s/s infection moving forward; cough has been minimized; afebrile. No signs/symtpoms of recurrence of pneumonia or systemic infection post antibiotic course. 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 Patient is rate controlled at this time w/ Sotalol 80 BID. Dose was decreased to Sotalol 40 BID after patient was borderline hypotensive. Patient remained asymptomatic. Transaminitis: Resolving; most likely thought to be drug induced Patient was seen and examined this AM prior to discharge. Still voicing complaints of thick phlegm however denies any shortness of breath, chest pain, abd pain, N/V/D Prior to discharge patient was given the following instructions: During your hospital course you were found to have Small Cell Lung Cancer which was treated with Radiation therapy and Chemotherapy, You were found to have low white blood cell count after Chemo therapy. You were also found to have Paroxysmal Atrial Fibrillation on this admission. You indicated you do not have a primary care physician, We have arranged an appointment for at the [facility] at [facility] ([facility] with Dr. Sammi Fink, please follow up with us on 11/09/17 at 1:30pm Please follow up with your Reducing Salon Attendant-Oncologist (Cancer Doctor) - Dr. Lomeli - on 10/26 at 1:00PM Please follow up with Radiation-Oncologist (Radiation Doctor) - Dr. Farida Dupont - between -11/26/2017 and 12/10/2017 Please follow up with your Bottle Washer (Heart Doctor) - Dr. Chirinos - within 7 to 10 days of discharge Please follow up with Tapper Balance Wheel Screw Hole (Lung doctor) - Dr. García - within 7 to 10 days of discharge for pulmonary function testing Please start taking the following medications: Sotalol 40mg twice a day Eliquis 5mg twice a day Xopenex 2 puffs as needed for shortness of breath every 6 hours Tessalon perles 100mg as needed for cough every 8 hours Oxycodone 5mg Q6H as needed for pain Megace 200mg every day Pantoprazole 40mg every day Miralax 17gm Daily as needed for constipation You are going to be discharged with home oxygen, please do not smoke or go near any open flames with oxygen Please eat a balanced diet, and supplement your diet with Ensure Shakes If you develop any fevers, cough, shortness of breath, chest pain, palpitations , or any new or worsening symptoms please go to the nearest emergency department Patient is medically optimized for discharge at this time. - Date & Time of H&P Date of H&P: 10/17/17 Time of H&P: 17:41 Discharge Exam - Head Exam Head Exam: ATRAUMATIC, NORMAL INSPECTION, NORMOCEPHALIC - Eye Exam Eye Exam: EOMI, Normal appearance, PERRL. absent: Scleral icterus - ENT Exam ENT Exam: Mucous Membranes Moist - Respiratory Exam Respiratory Exam: NORMAL BREATHING PATTERN. absent: Rhonchi, Wheezes, Respiratory Distress Additional comments: RML/RLL Crackles Remainder of lung chacon clear to auscultation - Cardiovascular Exam Cardiovascular Exam: REGULAR RHYTHM, RRR, +S1, +S2. absent: Systolic Murmur - GI/Abdominal Exam GI & Abdominal Exam: Normal Bowel Sounds, Soft, Unremarkable. absent: Tenderness - Extremities Exam Extremities exam: normal inspection, pedal pulses present - Back Exam Back exam: absent: CVA tenderness (L), CVA tenderness (R) - Neurological Exam Neurological exam: Alert, CN II-XII Intact, Oriented x3 - Psychiatric Exam Psychiatric exam: Normal Affect, Normal Mood - Skin Skin Exam: Dry, Intact, Normal Color, Warm Discharge Plan - Discharge Medications Prescriptions: RX: Apixaban [Eliquis] 5 mg PO BID #60 tab RX: Benzonatate [Tessalon Perles] 100 mg PO Q8H PRN #42 tab PRN Reason: Cough Levalbuterol Tartrate [Xopenex Hfa] 15 gm IH Q6H PRN #1 [id number] PRN Reason: Shortness Of Breath RX: Megestrol Acetate [Megace] 200 mg PO DAILY 14 Days cup RX: oxyCODONE [oxyCODONE Immediate Release Tab] 5 mg PO Q6H PRN #12 tab PRN Reason: Pain, Severe (8-10) RX: Pantoprazole [Protonix EC Tab] 40 mg PO DAILY #14 ect RX: Polyethylene Glycol 3350 [Miralax] 17 gm PO DAILY PRN #14 packet PRN Reason: Constipation RX: Sotalol [Betapace] 40 mg PO BID #60 tab - Follow Up Plan Condition: GOOD Disposition: HOME/ ROUTINE Instructions: Atrial Fibrillation (DC), Lung Cancer (DC) Additional Instructions: During your hospital course you were found to have Small Cell Lung Cancer which was treated with Radiation therapy and Chemotherapy, You were found to have low white blood cell count after Chemo therapy. You were also found to have Paroxysmal Atrial Fibrillation on this admission. You indicated you do not have a primary care physician, We have arranged an appointment for at the [facility] at [facility] ([facility] with Dr. Sammi Fink, please follow up with us on 11/09/17 at 1:30pm Please follow up with your Reducing Salon Attendant-Oncologist (Cancer Doctor) - Dr. Lomeli - on 10/26 at 1:00PM Please follow up with Radiation-Oncologist (Radiation Doctor) - Dr. Farida Dupont - between -11/26/2017 and 12/10/2017 Please follow up with your Bottle Washer (Heart Doctor) - Dr. Chirinos - within 7 to 10 days of discharge Please follow up with Tapper Balance Wheel Screw Hole (Lung doctor) - Dr. García - within 7 to 10 days of discharge for pulmonary function testing Please start taking the following medications: Sotalol 40mg twice a day Eliquis 5mg twice a day Xopenex 2 puffs as needed for shortness of breath every 6 hours Tessalon perles 100mg as needed for cough every 8 hours Oxycodone 5mg Q6H as needed for pain Megace 200mg every day Pantoprazole 40mg every day Miralax 17gm Daily as needed for constipation You are going to be discharged with home oxygen, please do not smoke or go near any open flames with oxygen Please eat a balanced diet, and supplement your diet with Ensure Shakes If you develop any fevers, cough, shortness of breath, chest pain, palpitations , or any new or worsening symptoms please go to the nearest emergency department Referrals: Kiah Iqbal MD [Staff Provider] - Dustin Lomeli MD [Staff Provider] - Sammi Fink MD [Medical Doctor] - Jeremiah Chirinos MD [Staff Provider] -
[2017-10-23] MEDS: Levalbuterol 0.63 MG/3 ML Inhal Soln UD IH SCH ×4 (01:10→19:17)
--- NOTE | 2017-10-23 01:42 | PN ---
Copied To: Lenka García MD Attending MD: Lenka García MD DATE: 10/22/2017 PULMONARY PROGRESS NOTE REFERRING PHYSICIAN: Dr. Larkin SUBJECTIVE: The patient is lying in the bed, head at 45 degrees. Night was unremarkable. No headache, no rhinitis. No nausea. No vomiting, diarrhea, leg pain or leg swelling. OBJECTIVE: GENERAL: In no acute distress. VITAL SIGNS: Temperature is 98, heart rate 63, respiratory rate is 20, blood pressure 129/64, pulse of 98% on 3 liters nasal cannula. HEENT: Moist mucous membranes. No ulcer or thrush. NECK: Supple. No JVD. LUNGS: Have a fair airflow with rhonchi. HEART: S1 and S2. ABDOMEN: Soft, nontender. No organomegaly. EXTREMITIES: No edema. NEUROLOGIC: Awake, alert, follows simple command. MEDICATIONS: He is on Benadryl 25 mg at bedtime, Sotalol 40 mg twice a day, albuterol/Atrovent nebulizer every 6 hour, Eliquis 5 mg twice day, Megace 200 mg daily, MiraLax 17 g three times a day, Oxycodone immediate release 5 mg every 6 hour p.r.n., Protonix 40 mg daily, Robitussin with codeine 5 mL every 4 hours, Tessalon Perles 100 mg, Xopenex inhaled every 6 hour. LABORATORY DATA: Shows hemoglobin 11.8, hematocrit 33.6, WBC 17,000, platelet is 78. Sodium 135, potassium 4.6, chloride 100, bicarbonate 28, BUN 21, creatinine 0.6, glucose 126, calcium 8.8, AST 33, ALT 97, alk phos is 123. Albumin is 2.99. IMPRESSION AND PLAN: Pancytopenia, status post chemotherapy, radiation therapy which is slowly improving, unresectable lung cancer, chronic obstructive lung disease, paroxysmal atrial fibrillation, presently sinus rhythm. In Pulmonary point of view, he is doing well. Continue bronchodilator. Keep head at 45 degrees. Aspiration precaution. Gastric prophylaxis. SCD to lower extremities. Physical therapy upon discharge, outpatient PFT. Thank you and we will follow with you. Lenka García MD [facility] # [phone]
[2017-10-23] MEDS: guaiFENesin-Codeine 100-10mg/5ml Syrup (5 ml) UD PO SCH ×5 (02:25→17:08)
[2017-10-23] MEDS: oxyCODONE 5 mg Immediate Release Tab PO PRN ×2 (04:23→13:13)
[2017-10-23] MEDS: Pantoprazole 40 mg EC Tab PO SCH (05:30)
[2017-10-23 06:59] LABS: HEMOGLOBIN 11.8 g/dL (14.0-18.0); MEAN CELL VOLUME 85.5 fl (80.0-105.0); MEAN CORPUSCULAR HEMOGLOBIN 29.1 pg (25.0-35.0); PLATELET COUNT 92 10^3/uL (120.0-450.0); RBC 4.06 10^6/uL (3.5-6.1); RED CELL DISTRIBUTION WIDTH 14.8 % (11.5-14.5); WHITE BLOOD COUNT 19.3 10^3/ul (4.5-11.0)
[2017-10-23 07:13] LABS: ALB/GLOB RATIO 1.1 (1.1-1.8); ALBUMIN 2.9 g/dL (3.0-4.8); ALT/SGPT 87 U/L (7-56); AST/SGOT 30 U/L (17-59); BLOOD UREA NITROGEN 20 mg/dL (7-21); CALCIUM 8.3 mg/dL (8.4-10.5); GFR AFRICAN-AMERICAN > 60; GFR NON-AFRICAN AMERICAN > 60
[2017-10-23 08:48] LABS: BAND 10 % (0-2); LYMPHOCYTE 8 % (22.0-35.0); METAMYELOCYTE 8 %; MONOCYTE 6 % (1.0-6.0); NEUTROPHIL 68 % (50.0-70.0); PLATELET ESTIMATE LOW (NORMAL)
[2017-10-23] MEDS: Megestrol Acetate 40 mg/ml Cup PO SCH (09:32)
[2017-10-23] MEDS: POLYETHYLENE GLYCOL 3350 17 GM/Dose PACKET PO SCH ×3 (09:33→17:08)
--- NOTE | 2017-10-23 11:59 | RAD ---
Date of service: 10/23/2017 HISTORY: Lung CA COMPARISON: 10/03/2017. FINDINGS: LUNGS: The lungs are well inflated. There is redemonstration of patchy airspace disease in the right upper lobe and right lower lobe with interval improved aeration in the lungs. Right MediPort terminates in the right atrium. PLEURA: Interval removal of the right chest tube. Suspect small pleural effusions. No pneumothorax apparent. CARDIOVASCULAR: Normal. OSSEOUS STRUCTURES: No significant abnormalities. VISUALIZED UPPER ABDOMEN: Normal. OTHER FINDINGS: None. IMPRESSION: Interval improved aeration in the lungs with persistent patchy airspace disease in the right lung. Status post removal of the right chest tube, suspect small pleural effusions.
--- NOTE | 2017-10-23 14:40 | CP.PCM.PN ---
Subjective - Date & Time of Evaluation Date of Evaluation: 10/23/17 Time of Evaluation: 14:37 - Subjective Subjective: Sobeida Dukes, PGY2, Heme-Onc Progress Note for Dr Lomeli/Dr Bernard: This is a 76 year old male with PMH gastric ulcer, gastritis, admitted for pneumonia, found to have small cell lung carcinoma with extensive mediastinal and hilar adenopathy and lytic lesions at T7, other vertebral bodies and liver mets, s/p 10 radiation treatments and 3 chemotherapy sessions. Patient now found to be neutropenic, put on neutropenic precautions. Patient transferred back to inpatient side from TCU, for granix injections. Patient's ANC count>1500 , stopped granix injections. Patient to be discharged today with home O2. Patient seen and examined at bedside. No acute events overnight. Patient reports mild fatigue. Patient currently denies pain. Reports mild cough. Had BM this AM. Denies fevers, chills, nausea, vomiting, hematochezia, abdominal pain , hematochezia, mucosal bleeding. Reports that he has good appetite, tolerating PO diet well. Objective - Vital Signs/Intake and Output Vital Signs (last 24 hours): Temp Pulse Resp BP Pulse Ox 97.8 F 66 20 131/87 100 10/23/17 08:07 10/23/17 09:32 10/23/17 08:07 10/23/17 09:32 10/23/17 08:07 - Medications Medications: Current Medications Apixaban (Eliquis) 5 mg PO BID FERNANDO PRN Reason: Protocol Last Admin: 10/23/17 09:32 Dose: 5 mg Benzonatate (Tessalon Perles) 100 mg PO Q8 [facility]ERNANDO Last Admin: 10/23/17 13:12 Dose: 100 mg Diphenhydramine HCl (Benadryl) 25 mg PO HS PRN PRN Reason: Insomnia Last Admin: 10/22/17 22:09 Dose: 25 mg Guaifenesin/Codeine Phosphate (Robitussin W/Codeine) 5 ml PO Q4H [facility] Last Admin: 10/23/17 13:13 Dose: 5 ml Levalbuterol HCl (Xopenex) 0.63 mg IH [id number] [facility] Last Admin: 10/23/17 13:19 Dose: 0.63 mg Megestrol Acetate (Megace) 200 mg PO DAILY [facility] Last Admin: 10/23/17 09:32 Dose: 200 mg Oxycodone HCl (Oxycodone Immediate Release Tab) 5 mg PO Q6H PRN PRN Reason: Pain, moderate (4-7) Last Admin: 10/23/17 13:13 Dose: 5 mg Pantoprazole Sodium (Protonix Ec Tab) 40 mg PO 0600 [facility] Last Admin: 10/23/17 05:30 Dose: 40 mg Polyethylene Glycol (Miralax) 17 gm PO TID [facility] Last Admin: 10/23/17 13:16 Dose: 17 gm Sotalol HCl (Betapace) 40 mg PO BID [facility] Last Admin: 10/23/17 09:32 Dose: 40 mg - Labs Labs: 10/23/17 06:45 10/23/17 06:45 - Additional Findings Additional findings: - Constitutional Appears: Older Than Stated Age, Chronically Ill - Head Exam Head Exam: ATRAUMATIC, NORMOCEPHALIC - Eye Exam Eye Exam: EOMI, PERRL. absent: Conjunctival injection, Nystagmus, Scleral icterus Pupil Exam: NORMAL ACCOMODATION, PERRL. absent: Miosis, Mydriatic, Unequal - ENT Exam ENT Exam: Mucous Membranes Moist - Neck Exam Neck Exam: Full ROM - Respiratory Exam Respiratory Exam: Decreased Breath Sounds - Cardiovascular Exam Cardiovascular Exam: RRR, +S1, +S2. absent: Murmur right sided chest port in place - GI/Abdominal Exam GI & Abdominal Exam: Soft, Normal Bowel Sounds. absent: Guarding, Rigid, Tenderness, Mass, Organomegaly, Rebound - Extremities Exam Extremities Exam: Normal Inspection. absent: Calf Tenderness, Pedal Edema - Back Exam Back Exam: NORMAL INSPECTION - Neurological Exam Neurological Exam: Alert, Awake, Oriented x3 - Psychiatric Exam Psychiatric exam: Normal Affect, Normal Mood - Skin Skin Exam: Dry, Normal Color, Warm Assessment and Plan - Assessment and Plan (Free Text) Assessment: 76 year old male with PMH gastric ulcer, gastritis, admitted for RLL pneumonia, found to have small cell lung cancer with extensive mediastinal and hilar adenopathy and lytic lesions at T7, other vertebral bodies and liver mets, s/p radiation treatments with Dr Iqbal and 3 sessions of chemotherapy. Patient transferred to TCU for rehab. However, patient was found to be leukopenic, ANC < 500, put on neutropenic precautions, transferred to inpatient side for daily granix injections. ANC>1500 now, stopped granix. Patient to be discharged home on home Oxygen today. Patient to follow up with Dr Lomeli (10/26) at 1 PM: Neutropenia, resolved Small cell lung cancer with metastasis to bone, liver, s/p radiation and chemo session New onset afib Constipation RLL pneumonia Transaminitis 2/2 likely medication (rocephin) induced Chemotherapy - carboplatin and etoposide Deconditioning s/p chemo - increased miralax to three times a day. - c/w Megace - pathology report of hilar mass 10/02 showed small cell lung carcinoma - On eliquis 5 mg BID and sotalol for afib. as per cardio and primary team - completed 3/3 chemotherapy sessions with carboplatin and etoposide, last session 10/11 - Will need home oxygen - Abd US showed increased echogenicity of liver parenchyma, 2 separate hypoechoic lesions. 2x1.3 cm in diameter. fatty infiltration - transaminitis improving - s/p Neupogen 480 mg sq daily 7 days. - Patient can follow up outpatient with Dr Lomeli upon discharge. - monitor Case discussed with Dr Lomeli.
--- NOTE | 2017-10-23 15:23 | CP.PCM.PN ---
Subjective - Date & Time of Evaluation Date of Evaluation: 10/23/17 Time of Evaluation: 11:40 - Subjective Subjective: No fevers, not in distress, non-toxic. Objective - Vital Signs/Intake and Output Vital Signs (last 24 hours): Temp Pulse Resp BP Pulse Ox 97.8 F 66 20 131/87 100 10/23/17 08:07 10/23/17 08:07 10/23/17 08:07 10/23/17 08:07 10/23/17 08:07 - Medications Medications: Current Medications Apixaban (Eliquis) 5 mg PO BID [facility] PRN Reason: Protocol Last Admin: 10/22/17 17:10 Dose: 5 mg Benzonatate (Tessalon Perles) 100 mg PO Q8 [facility] Last Admin: 10/23/17 05:31 Dose: 100 mg Diphenhydramine HCl (Benadryl) 25 mg PO HS PRN PRN Reason: Insomnia Last Admin: 10/22/17 22:09 Dose: 25 mg Guaifenesin/Codeine Phosphate (Robitussin W/Codeine) 5 ml PO Q4H [facility] Last Admin: 10/23/17 05:31 Dose: 5 ml Levalbuterol HCl (Xopenex) 0.63 mg IH [id number] [facility] Last Admin: 10/23/17 07:47 Dose: 0.63 mg Megestrol Acetate (Megace) 200 mg PO DAILY [facility] Last Admin: 10/22/17 09:40 Dose: 200 mg Oxycodone HCl (Oxycodone Immediate Release Tab) 5 mg PO Q6H PRN PRN Reason: Pain, moderate (4-7) Last Admin: 10/23/17 04:23 Dose: 5 mg Pantoprazole Sodium (Protonix Ec Tab) 40 mg PO 0600 [facility] Last Admin: 10/23/17 05:30 Dose: 40 mg Polyethylene Glycol (Miralax) 17 gm PO TID [facility] Last Admin: 10/22/17 17:10 Dose: 17 gm Sotalol HCl (Betapace) 40 mg PO BID [facility] Last Admin: 10/22/17 17:11 Dose: 40 mg - Labs Labs: 10/23/17 06:45 10/23/17 06:45 - Constitutional Appears: Chronically Ill - Head Exam Head Exam: NORMAL INSPECTION - ENT Exam ENT Exam: Mucous Membranes Moist - Respiratory Exam Respiratory Exam: Decreased Breath Sounds - Cardiovascular Exam Cardiovascular Exam: +S1, +S2 - GI/Abdominal Exam GI & Abdominal Exam: Soft. absent: Tenderness Assessment and Plan - Assessment and Plan (Free Text) Plan: Assessment S/P neutropenia without fever small cell lung cancer atrial fibrillation significant smoking history S/P port-a-cath placement Plan continue to monitor off antibiotics since the patient does not have fever - patient is not neutropenic anymore overall prognosis is poor
[2017-10-23 16:53] VITALS: BP 149/67; PULSE 54; TEMP 98.8; O2SAT 96
--- NOTE | 2017-10-24 02:26 | PN ---
Copied To: Lenka García MD Attending MD: Lenka García MD DATE: 10/23/2017 PULMONARY PROGRESS NOTE REFERRING PHYSICIAN: Dr. Larkin SUBJECTIVE: The patient is lying in the bed, head at 45 degrees. Night was unremarkable. No cough. No sputum production. No nausea. No abdominal pain. No dysuria, leg pain or leg swelling. OBJECTIVE: GENERAL: In no acute distress. VITAL SIGNS: Temperature is 98, heart rate 54, respiratory rate is 20, blood pressure 149/67, pulse ox 96% on 3 liters nasal cannula. HEENT: Moist mucous membranes. Crowded airway. NECK: Supple. No JVD. LUNGS: Have fair airflow with rhonchi. HEART: S1 and S2. ABDOMEN: Soft, nontender. No organomegaly. EXTREMITIES: There is no edema. NEUROLOGIC: Awake and alert. Follows simple command. MEDICATIONS: On Benadryl 25 mg at bedtime p.r.n., sotalol 40 mg twice a day, Eliquis 5 mg twice a day, Megace 200 mg daily, MiraLax 17 g p.o. twice a day, Oxycodone immediate release 5 mg every 6 hours p.r.n., Protonix 40 mg daily, Robitussin with codeine 5 mL every 4 hours, Tessalon Perles 100 mg every 8 hours, Xopenex inhaled every 6 hours. LABORATORY DATA: Shows hemoglobin 11.8, hematocrit 34.7, WBC 19.3, platelet count is 92. Sodium 138, potassium 4.5, chloride 103, bicarbonate 26, BUN 20, creatinine 0.6, glucose 112, calcium is 8.3, total bili 0.2, AST 30, ALT 87, alk phos is 140. Albumin is 2.9. Chest x-ray shows interval improve aeration in the lung with a persistent patchy airspace disease in the right lung, status post removal of the right chest tubes suspected small pleural effusion. IMPRESSION AND PLAN: Pancytopenia, which is improved status post chemo and radiation therapy, chronic lung disease, unresectable lung cancer, paroxysmal atrial fibrillation. Pulmonary point of view, doing well. Continue p.r.n. rescue inhaler. Outpatient pulmonary function tests. Oncology followup as outpatient. Thank you and we will follow with you. Lenka García MD
== END 2017-10-23 20:10 | disposition home or self-care (01) | DRG 809 ==
LOC: 3RNO 17:35
PROVIDERS: ADMIT Internal Medicine; ATTEND Internal Medicine
PROC: 3E0F7GC Introduction of Other Therapeutic Substance into Respiratory Tract, Via Natural or Artificial Opening (ICD-10-PCS; principal; 2017-10-17)
DX: D70.1 Agranulocytosis secondary to cancer chemotherapy (principal); C34.00 Malignant neoplasm of unspecified main bronchus; C79.51 Secondary malignant neoplasm of bone; C78.7 Secondary malignant neoplasm of liver and intrahepatic bile duct; T45.1X5A Adverse effect of antineoplastic and immunosuppressive drugs, initial encounter; D61.818 Other pancytopenia; I48.0 Paroxysmal atrial fibrillation; K21.9 Gastro-esophageal reflux disease without esophagitis; R74.0 Nonspecific elevation of levels of transaminase and lactic acid dehydrogenase [LDH]; K28.9 Gastrojejunal ulcer, unspecified as acute or chronic, without hemorrhage or perforation; J44.9 Chronic obstructive pulmonary disease, unspecified; Z92.3 Personal history of irradiation; Z79.01 Long term (current) use of anticoagulants; Z87.891 Personal history of nicotine dependence